=== PATIENT | male | born 1945 | race Asian ===

== ENCOUNTER 2020-10-31 12:25 | Inpatient (IN) | payer MEDICARE, OTHER ==
[~2020-10-31] VITALS: Ht 165.1 cm; Wt 68.0 kg
[2020-10-31] VITALS (7 sets, daily range): BP systolic 143–196; BP diastolic 69–102
--- NOTE | 2020-10-31 12:25 | NUR ---
ED Nurse Note: Pt ELISEO RA60 from home c/o nausea, vomiting, diarrhea and weakness x couple of days ago. BS at triage says "Hi". Pt tested negative for Covid x9 days ago. Per EMS, pt has stopped taking his DM and HTN meds. Pt AAOx4, verbally responsive. No SOB, on room air. Afebrile. Pt placed on patient monitor.
[2020-10-31 13:18] LABS: HEMATOCRIT 48.5 % (42.0-52.0); HEMOGLOBIN 14.7 G/DL (14.2-18.0); MEAN CORPUSCULAR VOLUME 100 FL (80-99); PLATELET COUNT 205 K/UL (150-450); RED BLOOD COUNT 4.87 M/UL (4.70-6.10); RED CELL DISTRIBUTION WIDTH 12.6 % (11.6-14.8); WHITE BLOOD COUNT 10.8 K/UL (4.8-10.8)
--- NOTE | 2020-10-31 13:23 | Emergency Room Report ---
History of Present Illness General Chief Complaint: Abnormal Labs Source: Patient, EMS (Errol Leslie) Present Illness HPI 75-year-old male with history of diabetes brought in by paramedics from home due to generalized weakness, nausea vomiting, and elevated blood sugar for 2 days. Patient also hypertensive upon arrival otherwise vitals are within normal limits. Appears to be afebrile. Reports that he tested negative for Covid 9 days ago however lives with who is positive for Covid. Denies any cough or congestion, shortness of breath, headache and dizziness. Patient mainly complains of generalized weakness. No unilateral weakness noted. (Errol Leslie) Allergies: Coded Allergies: No Known Allergies (Unverified , 10/31/20) COVID-19 Screening Contact w/high risk pt: No Experienced COVID-19 symptoms?: No COVID-19 Testing performed CAFE TEAM MEMBER: No (Errol Leslie) Patient History Past Medical History: see triage record Past Surgical History: none Pertinent Family History: none Immunizations: UTD Reviewed Nursing Documentation: PMH: Agreed; PSxH: Agreed (Errol Leslie) Nursing Documentation-PMH Hx Hypertension: Yes Hx Diabetes: Yes (Errol Leslie) Review of Systems All Other Systems: negative except mentioned in HPI (Errol Leslie) Physical Exam Vital Signs Date Time Temp Pulse Resp B/P (MAP) Pulse Ox O2 Delivery O2 Flow Rate FiO2 10/31/20 12:21 96.3 96 20 185/102 (129) 95 Room Air Sp02 EP Interpretation: abnormal - Blood pressure elevated General Appearance: alert, non-toxic, mild distress Head: normocephalic Eyes: bilateral eye normal inspection, bilateral eye PERRL ENT: hearing grossly normal, no angioedema, normal voice Neck: full range of motion, supple Respiratory: no respiratory distress, no retraction, no accessory muscle use Cardiovascular #1: regular rate, rhythm, no edema Gastrointestinal: non tender, soft, no mass Rectal: deferred Genitourinary: no CVA tenderness Musculoskeletal: back normal, pelvis stable Neurologic: alert, motor strength/tone normal, oriented x3, sensory intact, responsive, speech normal Psychiatric: judgement/insight normal, memory normal, mood/affect normal, no suicidal/homicidal ideation Skin: no rash Lymphatic: no adenopathy (Errol Leslie) Procedures Critical Care Time Critical Care Time Total critical care time; approximately 31 minutes. Due to a high probability of clinically significant, life threatening deterioration, the patient required my highest level of preparedness to intervene emergently and I personally spent this critical care time directly and personally managing the patient. This critical care time included obtaining a history; examining the patient; pulse oximetry; ordering and reviewing of studies; arranging urgent treatment with development of a management plan; evaluation of patient's response to treatment; frequent reassessment; and, discussions with other providers. This critical care time was performed to assess and manage the high probability of imminent, life-threatening deterioration that could result in multiorgan failure it was exclusive of separate billable procedures and treating other patients and teaching time. Please see MDM section and the rest of the note for further information on patient assessment and treatment. (Errol Leslie) Medical Decision Making PA Attestation All diagnoses and treatment plans were reviewed and discussed with my supervising physician Dr. Stack (Errol Leslie) PA Attestation I participate in the care of this patient along with SPRING Moreland Briefly, this is 75-year-old diabetic patient from home presenting for elevated blood sugar levels. Consistent with DKA. Blood sugar now greater than 8000. Insulin bolus, IV fluids and insulin drip started. Patient will be admitted to ICU. (John Bah MD) Medicare Attestation The history of Morales Marie has been reviewed and management options for him have been examined and discussed by Dylon Stack. I have personally examined and interviewed the patient. (Dylon Stack MD) Diagnostic Impression: Primary Impression: DKA (diabetic ketoacidoses) Additional Impression: COVID-19 virus infection ER Course 75-year-old male with history of diabetes brought in by paramedics from home due to generalized weakness, nausea vomiting, and elevated blood sugar for 2 days. Patient also hypertensive upon arrival otherwise vitals are within normal limit s. Appears to be afebrile. Reports that he tested negative for Covid 9 days ago however lives with who is positive for Covid. Denies any cough or congestion, shortness of breath, headache and dizziness. Patient mainly complains of generalized weakness. No unilateral weakness noted. Ddx considered but are not limited to: DKA, hyperglycemia, coronavirus, dizziness due to alcohol intoxication, dizziness unspecified, dizziness due to head trauma, dizziness secondary to cardiac reasons Vital signs: are WNL, pt. is afebrile H&PE are most consistent with: DKA, covid infx ORDERS: DKA order set ER intervention: NS bolus, Zofran, insulin, Insulin drip, sodium bicarbonate, Hydralazine Patient was admitted with diagnosis of DKA, Covid infx to Dr. Hwang under supervision of Dr.: Dulce pt stable at time of admission (Errol Leslie) EKG Diagnostic Results Rate: tachycardiac Rhythm: other ST Segments: no acute changes Other Impression No acute ST changes ASA given to the pt in ED: No (Errol Leslie) Chest X-Ray Diagnostic Results Chest X-Ray Diagnostic Results : Chest X-Ray Ordered: Yes # of Views/Limited/Complete: 1 View Indication: Other EP Interpretation: Yes PA Xray: Interpretation reviewed, by supervising MD, and agrees with findings. Interpretation: no consolidation, no effusion, no pneumothorax Impression: No acute disease Electronically Signed by: Errol Gannon PA-C (Errol Leslie) Last Vital Signs Date Time Temp Pulse Resp B/P (MAP) Pulse Ox O2 Delivery O2 Flow Rate FiO2 10/31/20 12:25 96.3 96 20 185/102 95 Room Air (Errol Leslie) Disposition: ADMITTED INPATIENT Condition: Serious Referrals: DERICK ELLIS,REFERRING (PCP) Errol Leslie Oct 31, 2020 13:23 John Bah MD Oct 31, 2020 15:30 Dylon Stack MD Nov 12, 2020 15:36
[2020-10-31 13:31] LABS: ANION GAP 18 mmol/L (5-15); BLOOD UREA NITROGEN 66 mg/dL (7-18); CALCIUM 8.6 MG/DL (8.5-10.1); CARBON DIOXIDE 18 MMOL/L (21-32); CHLORIDE 94 MMOL/L (98-107); CREATININE 4.6 MG/DL (0.55-1.30); SODIUM 130 MMOL/L (136-145)
[2020-10-31 13:43] LABS: ALANINE AMINOTRANSFERASE 32 U/L (12-78); ALBUMIN 2.9 G/DL (3.4-5.0); ALBUMIN/GLOBULIN RATIO 0.7 (1.0-2.7); ALKALINE PHOSPHATASE 107 U/L (46-116); ASPARTATE AMINO TRANSFERASE 47 U/L (15-37); BILIRUBIN,TOTAL 0.5 MG/DL (0.2-1.0); FERRITIN 706 NG/ML (8-388)
[2020-10-31] MEDS ORDERED: Insulin Human Regular 100units/ml 3ml IV ONE (13:45)
[2020-10-31] MEDS ORDERED: Insulin Reg 100 units Premix 100 ML IV SCH ×2 (14:15→14:58)
[2020-10-31] MEDS ORDERED: Insulin Rate Change 1 Each MISC PRN (14:15)
[2020-10-31] MEDS ORDERED: Insulin Human Regular 100units/ml 3ml IV PRN ×2 (14:15)
--- NOTE | 2020-10-31 14:15 | Diagnostic Imaging Report ---
Indication: Shortness of breath Technique: One view of the chest Comparison: none Findings: The heart is enlarged. The aorta is tortuous ectatic and calcified. There is some atelectasis in the left midlung periphery. Lungs and pleural spaces are otherwise clear. Impression: Cardiomegaly. Left midlung atelectasis No acute process otherwise
--- NOTE | 2020-10-31 15:00 | NUR ---
ED Nurse Note:started insulin drip, will recheck BG in 1 hr
--- NOTE | 2020-10-31 15:10 | NUR ---
ED Nurse Note: Pt unable to recall the name of his home meds.
--- NOTE | 2020-10-31 15:15 | NUR ---
ED Nurse Note:pt. was moved to different room for cardiac monitoring,
[2020-10-31] MEDS ORDERED: Sodium Bicarbonate 50ml Carp IV ONE (15:45)
[2020-10-31 15:57] LABS: APPEARANCE,URINE CLEAR; BILIRUBIN, URINE NEGATIVE (NEGATIVE); COLOR,URINE PALE YELLOW; GLUCOSE, URINE (UA) 4+ (NEGATIVE); KETONES,URINE 2+ (NEGATIVE); LEUKOCYTE ESTERASE ,URINE NEGATIVE (NEGATIVE); NITRITE,URINE NEGATIVE (NEGATIVE); PH,URINE 5 (4.5-8.0); PROTEIN,URINE 4+ (NEGATIVE); UROBILINOGEN,URINE NORMAL MG/DL (0.0-1.0)
--- NOTE | 2020-10-31 16:27 | NUR ---
ED Nurse Note:rechecked BG still cr high, notified
--- NOTE | 2020-10-31 17:40 | Consultation ---
Consult Note Consult Note I am asked to evaluate the patient at the request of Dr. Hwang for renal failure Patient seen in ICU room 8 Discussed with the emergency room MD and PA Chief Complaint: Abnormal Labs 75-year-old male with history of diabetes brought in by paramedics from home due to generalized weakness, nausea vomiting, and elevated blood sugar for 2 days. Patient also hypertensive upon arrival otherwise vitals are within normal limits. Appears to be afebrile. Reports that he tested negative for Covid 9 days ago however lives with who is positive for Covid. Denies any cough or congestion, shortness of breath, headache and dizziness. Patient mainly complains of generalized weakness. No unilateral weakness noted. Coded Allergies: No Known Allergies (Unverified , 10/31/20) COVID-19 Screening Contact w/high risk pt: No Experienced COVID-19 symptoms?: No COVID-19 Testing performed PLANT BIOLOGY PROFESSOR: No Hx Hypertension: Yes Hx Diabetes: Yes Vital Signs Date Time Temp Pulse Resp B/P (MAP) Pulse Ox O2 Delivery O2 Flow Rate FiO2 10/31/20 12:21 96.3 96 20 185/102 (129) 95 Room Air PHYSICAL EXAMINATION: VITAL SIGNS: Show blood pressure of 174/89 and pulse is 107, but was 163 at 3 a.m. HEAD AND NECK: Shows no JVD. LUNGS: Clear. CARDIOVASCULAR: Shows regular S1 and S2 with no gallop. ABDOMEN: Soft. EXTREMITIES: No pitting edema. LABORATORY AND DIAGNOSTIC DATA: Labs show white count 13.7, hematocrit of 14, hematocrit 42, and platelet count of 190,000. Sodium 142, potassium 3.5, BUN of 52, creatinine 3.5, glucose of 459. His troponin is at 0.315 and 0.255. . Assessment/Plan 75-year-old Icelandic male Covid positive, pneumonia, hypoxia Acute renal failure, most likely superimposed on chronic kidney disease Diabetes mellitus, presents with severe hyperglycemia and DKA History of hypertension Rhabdomyolysis Hypothyroidism Anand catheter Blood sugar control Slow hydration Monitor renal parameters Kidney ultrasound 2D echocardiogram Avoid nephrotoxic's Per Endo Per orders Garth Buckley MD Oct 31, 2020 17:40
[2020-10-31] MEDS: Docusate 100mg cap ORAL SCH (17:59)
--- NOTE | 2020-10-31 18:00 | NUR ---
ED Nurse Note:brenner was incerted for output monitoring per MD order
--- NOTE | 2020-10-31 18:47 | Diagnostic Imaging Report ---
EXAM: US Retroperitoneal Limited, Renal CLINICAL HISTORY: RENAL-A TECHNIQUE: Real-time limited ultrasound of the retroperitoneum with image documentation. COMPARISON: None. FINDINGS: Limitations: Exam is limited due to gas artifact in the bowel. Right kidney: Right kidney measures 9.1 x 4.3 x 4.9 cm. No stones. No hydronephrosis. Left kidney: The left kidney measures 10.0 x 4.5 x 5.0 cm. No stones. No hydronephrosis. Bladder: Prevoid urinary bladder volume is 86.5 cc. Normal urinary bladder wall. A Anand catheter is seen in place. IMPRESSION: Unremarkable retroperitoneal ultrasound.
[2020-10-31 19:17] LABS: CALCIUM 7.8 MG/DL (8.5-10.1); CREATININE 3.7 MG/DL (0.55-1.30); POTASSIUM 2.8 MMOL/L (3.5-5.1)
--- NOTE | 2020-10-31 19:30 | NUR ---
ED Nurse Note: Recieved report from am nurse to resume care, pt in bed resting quietly, on cardiac monitoring, has patent IV site with insulin infusing for elevated blood sugar level, recent level =581, ER MD states to continue running at 7ml/hr, pt tolerating well, denies chest pain or any pain, no sob or labored breathing, pt is on covid isolation precautions, waiting for room for admission, will resume care as ordered and continue to closely monitor.
[2020-10-31] MEDS ORDERED: Potassium Phosphate 20 MM in NS 275 ML IV ONE (19:45)
[2020-10-31] MEDS ORDERED: Enoxaparin 60mg Inj SUBQ ONE (20:00)
[2020-10-31] MEDS ORDERED: BENADRYL25 M3 PO (20:26)
[2020-10-31] MEDS ORDERED: PREDNISONE20 MG ORAL (20:26)
--- NOTE | 2020-10-31 20:45 | NUR ---
ED Nurse Note: Pt continues to rest quietly, pt c/o having increased nausea, meds given and pt had emesis, reported to md, pt medicated for mild abd pain, IV site patent with fluids infusing, pt insulin drip held at this time per , ER MD, states to infuse all potassium before restarting due to pt low potassium level, pt has admit orders, will continue to monitor while waiting for ICU bed room placement.
[2020-10-31] MEDS ORDERED: Morphine Sulfate 2mg/ml Inj(IV/IM USE ONLY) IVP ONE (21:00)
--- NOTE | 2020-10-31 21:18 | NUR ---
CONTACT STEFANIE ESPARZA, son in law [phone]
--- NOTE | 2020-10-31 21:18 | NUR ---
CONTACT INFO LEXI,DAUGHTER [phone]
--- NOTE | 2020-10-31 22:00 | NUR ---
ED Nurse Note: Pt continues to rest quietly in bed, awake and alert, pt stating still has nausea, emesis x 1 and pain at 6/10, MD aware, pt remains on continuous monitoring, v/s stable, IV site patent, no sob or labored breathing noted, brenner to gravity, output recorded, no insulin infusing and potassium continues, will continue to closely monitor as pt waiting for bed for hospital admission.
[2020-10-31] MEDS ORDERED: Morphine Sulfate 4mg/ml Inj (IV USE ONLY) IVP ONE (23:30)
--- NOTE | 2020-10-31 23:35 | NUR ---
ED Nurse Note: Pt mediocated for pain, meds effective, pt resting quietly, remains on Covid isolation precautions and constant monitoring, IV site patent wih potassium infusin, repeat chemistry panel drawn and sent for updated potassium level, no sob or labored breathingn toed, o2 sat=99% on RA, will continue to monitor for any acute chagnes or increased distress.
[2020-10-31 23:46] LABS: CALCIUM 8.2 MG/DL (8.5-10.1); CREATININE 3.5 MG/DL (0.55-1.30); POTASSIUM 3.5 MMOL/L (3.5-5.1)
[2020-11-01] VITALS (17 sets, daily range): BP systolic 96–174; BP diastolic 33–104
--- NOTE | 2020-11-01 | NUR ---
NURSE NOTES: cleaned pt, oral care given. 2 BM noted at this time, brown, no bleeding, large liquid BM. pt is very agitated. AOx 2-3 confused at this time. pt is trying to get out from the bed. call light within reach. will continue to monitor pt with plan of care. Addendum: 11/02/20 at 0752 by DOROTA GLASER RN wrong time
[2020-11-01] MEDS ORDERED: Insulin Human Regular 100units/ml 3ml IV ONE (00:45)
--- NOTE | 2020-11-01 01:05 | NUR ---
ED Nurse Note: Pt lab results given, potassium level up to normal limits and pt has been down graded to tele unit, pt blood glucose level also taken and recorded, pt given single dose or insulin to cover, no restart of drip during potassium infusion per md, pt states pain meds effective and resting quietly, report for admission called to floor nurse ARPITA Green, pt taken to unnit via gurney with ACLS protocols and Covid isolation, nad noted during pt transport and pt has all belongings.
--- NOTE | 2020-11-01 01:30 | NUR ---
NURSE NOTES: Pt. received from ARPITA Valdez. Pt. AAOx4, no room air, breathing even and unlabored, no indications of respiratory distress, no complaints of pain. IV noted left AC 20g. Belongings with pt. Pt. oriented to room. Bed low and lock, side rails x2 up, bed alarm active, and call light in reach.
[2020-11-01] MEDS ORDERED: dilTIAZem HCl 25mg/5ml Inj IVP ONE (02:30)
--- NOTE | 2020-11-01 02:54 | NUR ---
NURSE NOTES: At 0158 Pt. VS assessed, 156/104, 160 HR on pulse ox, 97.9F, 20RR, 96% on room air, no complaints of pain, with nausea and vomiting. On monitor pt. was found to be in a flutter 163 bpm, pt. asymptomatic on assessment. EKG was performed and indicated to be in aflutter. MEDICAL REVIEW COORDINATOR was called. Dr. Soto was notified by the charge nurse. Nurse real estate office supervisor was notified. During MEDICAL REVIEW COORDINATOR pt. AAOx4, no indications of respiratory distress, no complaints of pain, no complaints of palpitations, pt. still in a flutter on EKG, BS 411 via bedside accucheck. MEDICAL REVIEW COORDINATOR recommended primary to be called for orders and suggested ICU if rhythm cannot be controlled. Per charge nurse, nurse real estate office supervisor was called and nurse real estate office supervisor will speak with ER doctor. ER doctor with orders for 25 mg cardizem IV push. With crash cart at bedside and ICU nurse on standby, cardizem was administered. HR 151 BP 156/86, pt on EKG at bedside and small engine technician alerted. After 20 mg cardizem was given, HR 94 BP 142/86, 100% on 2L NC, no complaints of chest pain per the pt, pt. AAOx4. Pt. VS stable, EKG now normal sinus rhythm.
--- NOTE | 2020-11-01 03:05 | NUR ---
CARPENTRY TEACHER Note: CARPENTRY TEACHER was called at [] by [], and notified MD []. Pt transferred to [] at []. See CARPENTRY TEACHER documentation form for full report. Pt noted to be A flutter confirmed by EKG. HR fluctuating between 130 to 160s. BP 156/ 104 pt sating 97% O2. pt is alert and oriented times 4, no change in condition neuro gutierrez. pt able to answer questions. Dr Soto has been paged about the pts situation on his urgent line. ray Montero assessed pt, notified ER Doctor Dora about pts situation. ED doctor ordered Cardizem 25 MG IV push. 20 MG of Cardizem was given, pts converted back to NSR with HR in the 90s. BP 147/ 83, pt remained asymptomatic. EKG confirmed PT converted to SR. EKG filed in pts chart. Addendum: 11/01/20 at 0443 by RASHAD MUNOZ RN CARPENTRY TEACHER Note: CARPENTRY TEACHER was called at [0305] by [Peter RN, Rossy RN], and notified [Charles]. Pt stayed in room. See CARPENTRY TEACHER documentation form for full report. Pt noted to be A flutter confirmed by EKG. HR fluctuating between 130 to 160s. BP 156/ 104 pt sating 97% O2. pt is alert and oriented times 4, no change in condition neuro gutierrez. pt able to answer questions. Dr Soto has been paged about the pts situation on his urgent line. ray Montero assessed pt, notified ER Doctor Dora about pts situation. ED doctor ordered Cardizem 25 MG IV push. 20 MG of Cardizem was given, pts converted back to NSR with HR in the 90s. BP 147/ 83, pt remained asymptomatic. EKG confirmed PT converted to SR. EKG filed in pts chart.
--- NOTE | 2020-11-01 03:23 | NUR ---
NURSE NOTES: Dr. Soto called to notify of HADOOP INFRASTRUCTURE ARCHITECT, administration of 20mg cardizem as ordered by ER physician, and pt. conversion from aflutter to sinus rhythm. Awaiting return call and follow up orders.
--- NOTE | 2020-11-01 03:29 | NUR ---
NURSE NOTES: Message was left for daughterAshley per the contact info left in notes.
--- NOTE | 2020-11-01 03:43 | NUR ---
NURSE NOTES: Spoke with Ashley, pt's daughter, regarding ENTRY LEVEL MARKETING ASSISTANT and pt's current status on telemetry unit.
[2020-11-01] MEDS ORDERED: NovoLOG Insulin Flexpen SUBQ SCH (06:30)
--- NOTE | 2020-11-01 06:42 | NUR ---
NURSE NOTES: Per charge nurse, orders received from Dr. Soto to consult Dr. Escalante regarding pt.s a flutter episode.
--- NOTE | 2020-11-01 07:35 | NUR ---
NURSE NOTES: Received patient in bed. Awake, A/O x4, Wolof speaking. On room air, respirations unlabored. F/c in place draining yellow urine. IV in the Left AC, IVF running as ordered. Bed low and locked, side rails up x2, call light within reach - with return demonstration.
--- NOTE | 2020-11-01 07:49 | NUR ---
NURSE HAND-OFF REPORT: Important Events on Shift:[pt. admitted, a flutter and CAMPAIGN COORDINATOR called. Dr. Soto and Dr. Escalante aware, orders received. Glucose 455, Dr. Tamez notified. Daughter aware of pt.s status] Patient Status: awake and alert Diet: Renal Pending Orders: na Pending Results/Labs:na Pending MD notification:need zofran Latest Vital Signs: Temperature 97.5 , Pulse 97 , B/P 154 /96 , Respiratory Rate 20 , O2 SAT 96 , Room Air, O2 Flow Rate 2.0 . Vital Sign Comment: stable EKG Rhythm: Sinus Rhythm Rhythm change?: Amari ANDERSON Notified?: Y -Dr. Charles ANDERSON Response: Message left await call Latest Bhat Fall Score: 45 Fall Risk: High Risk Safety Measures: Call light Within Reach, Bed Alarm Zone 1, Side Rails Side Rails x2, Bed position Low and Locked. Fall Precautions: Yellow Socks Patient Fall Education Report given to ARPITA Silva.
[2020-11-01 08:32] LABS: HEMATOCRIT 42.7 % (42.0-52.0); MEAN CORPUSCULAR VOLUME 91 FL (80-99); PLATELET COUNT 190 K/UL (150-450); RED BLOOD COUNT 4.67 M/UL (4.70-6.10); RED CELL DISTRIBUTION WIDTH 13.2 % (11.6-14.8); WHITE BLOOD COUNT 13.3 K/UL (4.8-10.8)
[2020-11-01 08:42] LABS: ALANINE AMINOTRANSFERASE 36 U/L (12-78); ALBUMIN 2.4 G/DL (3.4-5.0); ALBUMIN/GLOBULIN RATIO 0.8 (1.0-2.7); ALKALINE PHOSPHATASE 88 U/L (46-116); ANION GAP 16 mmol/L (5-15); ASPARTATE AMINO TRANSFERASE 51 U/L (15-37); BILIRUBIN,TOTAL 0.5 MG/DL (0.2-1.0); BLOOD UREA NITROGEN 52 mg/dL (7-18); CALCIUM 7.7 MG/DL (8.5-10.1); CARBON DIOXIDE 18 MMOL/L (21-32); CHLORIDE 109 MMOL/L (98-107); CHOLESTEROL 197 MG/DL (< 200); CREATINE KINASE 1898 U/L (26-308); CREATININE 3.2 MG/DL (0.55-1.30); GAMMA GLUTAMYL TRANSPEPTIDASE 29 U/L (5-85); HDL CHOLESTEROL 39 MG/DL (40-60); PHOSPHORUS 4.7 MG/DL (2.5-4.9); POTASSIUM 3.5 MMOL/L (3.5-5.1); SODIUM 143 MMOL/L (136-145); TRIGLYCERIDES 349 MG/DL (30-150)
[2020-11-01] MEDS: Docusate 100mg cap ORAL SCH ×2 (08:42→17:39)
[2020-11-01] MEDS: Levemir Flexpen SUBQ SCH (08:49)
--- NOTE | 2020-11-01 09:00 | Consultation ---
DATE OF CONSULTATION: 11/01/2020 ENDOCRINOLOGY CONSULTATION CONSULTING PHYSICIAN: Markus Tamez MD REFERRING PHYSICIAN: Corey Soto MD REASON FOR CONSULTATION: Diabetes management. HISTORY OF PRESENT ILLNESS: The patient is a 75-year-old man with history of diabetes, brought in by paramedics due to generalized weakness, nausea, vomiting, elevated glucose for the past few days. Also found to be hypertensive upon arrival. Vitals within normal limits. The patient was afebrile, tested positive for COVID 9 days ago. He lives with his who was positive for COVID also. Denies any chest pain, shortness of breath, headache, or dizziness. Main complaint is that generalized weakness, which is not localized. On presentation, he was noted to have glucose of 1087 with an open gap of 18, bicarb of 18, lactic acid of 3.2, started on insulin drip and admitted to the ICU. PAST MEDICAL HISTORY: Diabetes. PAST SURGICAL HISTORY: Unknown. SOCIAL HISTORY: No smoking, alcohol, or drug use. REVIEW OF SYSTEMS: As per HPI. FAMILY HISTORY: Noncontributory. LABORATORY DATA: Most recent laboratory values, Lactate 3.5, chloride 108, bicarb 24, BUN 54, creatinine 3.5, and glucose of 474. PHYSICAL EXAMINATION: VITAL SIGNS: Blood pressure 156/102, temperature of 98.4, pulse of 157, and respiratory rate of 20. The rest of the exam was deferred due to the patient's COVID isolation. DIAGNOSES: 1. Diabetes out of control with mild DKA, positive for lactic acidosis. 2. Renal failure, acute versus chronic or acute on chronic. 3. COVID positive. 4. Generalized weakness PLAN: 1. Insulin drip algorithm 2. 2. Glucose monitoring every 1 to 2 hours. 3. Once the glucose is stable, we will convert to subcutaneous insulin therapy. 4. I will follow the patient closely during the hospital stay. Follow the electrolytes. Thank you, Dr. Soto, for the courtesy of this consultation. Markus Tamez M.D. : ARPITA/mark JOB#: [id number] CC: [email or web address]
--- NOTE | 2020-11-01 10:46 | Cardiac Electrophysiology PN ---
Subjective Subjective [id number] Objective Last 24 Hour Vital Signs Date Time Temp Pulse Resp B/P (MAP) Pulse Ox O2 Delivery O2 Flow Rate FiO2 11/01/20 09:20 174/89 11/01/20 08:00 98.5 107 20 174/89 (117) 94 11/01/20 04:00 97.5 102 20 154/96 (115) 96 11/01/20 04:00 97 11/01/20 03:05 163 20 96 11/01/20 02:37 157 156/102 11/01/20 02:19 Nasal Cannula 2.0 11/01/20 01:56 163 11/01/20 01:25 98.4 81 16 151/93 99 Room Air 11/01/20 00:45 98.4 81 16 151/93 99 Room Air 10/31/20 23:00 96.3 82 16 143/90 99 Room Air 10/31/20 21:40 96.3 10/31/20 21:40 96.3 10/31/20 21:30 98.8 85 19 149/71 99 Room Air 10/31/20 20:00 98.8 91 22 158/73 97 Room Air 10/31/20 18:05 96.3 88 22 153/69 97 Room Air 10/31/20 16:37 96.3 85 22 196/82 97 Room Air 10/31/20 16:19 222/100 10/31/20 15:29 96.3 86 25 188/85 97 Room Air 10/31/20 12:25 96.3 96 20 185/102 95 Room Air 10/31/20 12:21 96.3 96 20 185/102 (129) 95 Room Air Intake and Output 10/31/20 11/01/20 19:00 07:00 Intake Total 1200 ml Output Total 2100 ml Balance -900 ml Intake Oral 1200 ml Output Urine Total 1900 ml Emesis 200 ml # Voids 1 Laboratory Tests Test 10/31/20 12:38 10/31/20 13:50 10/31/20 14:55 10/31/20 18:30 White Blood Count 10.8 K/UL (4.8-10.8) Red Blood Count 4.87 M/UL (4.70-6.10) Hemoglobin 14.7 G/DL (14.2-18.0) Hematocrit 48.5 % (42.0-52.0) Mean Corpuscular Volume 100 FL (80-99) H Mean Corpuscular Hemoglobin 30.2 PG (27.0-31.0) Mean Corpuscular Hemoglobin Concent 30.3 G/DL (32.0-36.0) L Red Cell Distribution Width 12.6 % (11.6-14.8) Platelet Count 205 K/UL (150-450) Mean Platelet Volume 7.5 FL (6.5-10.1) Neutrophils (%) (Auto) % (45.0-75.0) Lymphocytes (%) (Auto) % (20.0-45.0) Monocytes (%) (Auto) % (1.0-10.0) Eosinophils (%) (Auto) % (0.0-3.0) Basophils (%) (Auto) % (0.0-2.0) Differential Total Cells Counted 100 Neutrophils % (Manual) 89 % (45-75) H Lymphocytes % (Manual) 4 % (20-45) L Monocytes % (Manual) 7 % (1-10) Eosinophils % (Manual) 0 % (0-3) Basophils % (Manual) 0 % (0-2) Band Neutrophils 0 % (0-8) Platelet Estimate Adequate Platelet Morphology Normal Red Blood Cell Morphology Normal Macrocytosis D-Dimer 3.42 mg/L FEU (0.00-0.49) H Sodium Level 130 MMOL/L (136-145) L 143 MMOL/L (136-145) # Potassium Level 4.0 MMOL/L (3.5-5.1) 2.8 MMOL/L (3.5-5.1) L Chloride Level 94 MMOL/L (98-107) L 109 MMOL/L (98-107) H Carbon Dioxide Level 18 MMOL/L (21-32) L 23 MMOL/L (21-32) Anion Gap 18 mmol/L (5-15) H 11 mmol/L (5-15) Blood Urea Nitrogen 66 mg/dL (7-18) H 57 mg/dL (7-18) H Creatinine 4.6 MG/DL (0.55-1.30) H 3.7 MG/DL (0.55-1.30) H Estimat Glomerular Filtration Rate 12.5 mL/min (>60) 16.1 mL/min (>60) Glucose Level 1087 MG/DL (74-106) *H 581 MG/DL (74-106) #*H Hemoglobin A1c 8.1 % (4.3-6.0) H Lactic Acid Level 2.20 mmol/L (0.4-2.0) H Calcium Level 8.6 MG/DL (8.5-10.1) 7.8 MG/DL (8.5-10.1) L Magnesium Level 2.7 MG/DL (1.8-2.4) H Ferritin 706 NG/ML (8-388) H Total Bilirubin 0.5 MG/DL (0.2-1.0) Aspartate Amino Transf (AST/SGOT) 47 U/L (15-37) H Alanine Aminotransferase (ALT/SGPT) 32 U/L (12-78) Alkaline Phosphatase 107 U/L (46-116) Troponin I 0.255 ng/mL (0.000-0.056) C-Reactive Protein, Quantitative 2.4 mg/L (<5) Total Protein 7.0 G/DL (6.4-8.2) Albumin 2.9 G/DL (3.4-5.0) L Globulin 4.1 g/dL Albumin/Globulin Ratio 0.7 (1.0-2.7) L Lipase 193 U/L (73-393) Acetone Level Positive-small (NEGATIVE) Arterial Blood pH 7.293 (7.350-7.450) Arterial Blood Partial Pressure CO2 29.3 mmHg (35.0-45.0) L Arterial Blood Partial Pressure O2 mmHg (75.0-100.0) Arterial Blood HCO3 13.9 mmol/L (22.0-26.0) *L Arterial Blood Oxygen Saturation 94.3 % (95-100) L Arterial Blood Base Excess -11.2 (-2-2) *L Lorenzo Test Positive Urine Color Pale yellow Urine Appearance Clear Urine pH 5 (4.5-8.0) Urine Specific [place] 1.010 (1.005-1.035) Urine Protein 4+ (NEGATIVE) H Urine Glucose (UA) 4+ (NEGATIVE) H Urine Ketones 2+ (NEGATIVE) H Urine Blood 2+ (NEGATIVE) H Urine Nitrite Negative (NEGATIVE) Urine Bilirubin Negative (NEGATIVE) Urine Urobilinogen Normal MG/DL (0.0-1.0) Urine Leukocyte Esterase Negative (NEGATIVE) Urine RBC 5-10 /HPF (0 - 0) H Urine WBC 0-2 /HPF (0 - 0) Urine Squamous Epithelial Cells None /LPF (NONE/OCC) Urine Bacteria Few /HPF (NONE) Urine Coarse Granular Casts 2-4 /LPF (NONE) H Test 10/31/20 23:30 10/31/20 23:32 11/01/20 02:01 11/01/20 05:20 Sodium Level 143 MMOL/L (136-145) Potassium Level 3.5 MMOL/L (3.5-5.1) Chloride Level 108 MMOL/L (98-107) H Carbon Dioxide Level 24 MMOL/L (21-32) Anion Gap 12 mmol/L (5-15) Blood Urea Nitrogen 54 mg/dL (7-18) H Creatinine 3.5 MG/DL (0.55-1.30) H Estimat Glomerular Filtration Rate 17.1 mL/min (>60) Glucose Level 474 MG/DL (74-106) #H Calcium Level 8.2 MG/DL (8.5-10.1) L POC Whole Blood Glucose 441 MG/DL (74-106) H 411 MG/DL (74-106) H Urine Eosinophils None seen (NONE SEEN) Test 11/01/20 05:27 White Blood Count 13.3 K/UL (4.8-10.8) H Red Blood Count 4.67 M/UL (4.70-6.10) L Hemoglobin 14.0 G/DL (14.2-18.0) L Hematocrit 42.7 % (42.0-52.0) Mean Corpuscular Volume 91 FL (80-99) # Mean Corpuscular Hemoglobin 29.9 PG (27.0-31.0) Mean Corpuscular Hemoglobin Concent 32.7 G/DL (32.0-36.0) Red Cell Distribution Width 13.2 % (11.6-14.8) Platelet Count 190 K/UL (150-450) Mean Platelet Volume 8.6 FL (6.5-10.1) Neutrophils (%) (Auto) % (45.0-75.0) Lymphocytes (%) (Auto) % (20.0-45.0) Monocytes (%) (Auto) % (1.0-10.0) Eosinophils (%) (Auto) % (0.0-3.0) Basophils (%) (Auto) % (0.0-2.0) Neutrophils % (Manual) Pending Lymphocytes % (Manual) Pending Platelet Estimate Pending Platelet Morphology Pending Sodium Level 143 MMOL/L (136-145) Potassium Level 3.5 MMOL/L (3.5-5.1) Chloride Level 109 MMOL/L (98-107) H Carbon Dioxide Level 18 MMOL/L (21-32) L Anion Gap 16 mmol/L (5-15) H Blood Urea Nitrogen 52 mg/dL (7-18) H Creatinine 3.2 MG/DL (0.55-1.30) H Estimat Glomerular Filtration Rate 19.0 mL/min (>60) Glucose Level 459 MG/DL (74-106) H Uric Acid 8.1 MG/DL (2.6-7.2) H Calcium Level 7.7 MG/DL (8.5-10.1) L Phosphorus Level 4.7 MG/DL (2.5-4.9) Magnesium Level 2.4 MG/DL (1.8-2.4) Total Bilirubin 0.5 MG/DL (0.2-1.0) Gamma Glutamyl Transpeptidase 29 U/L (5-85) Aspartate Amino Transf (AST/SGOT) 51 U/L (15-37) H Alanine Aminotransferase (ALT/SGPT) 36 U/L (12-78) Alkaline Phosphatase 88 U/L (46-116) Total Creatine Kinase 1898 U/L (26-308) H Troponin I 0.315 ng/mL (0.000-0.056) C-Reactive Protein, Quantitative Pending Pro-B-Type Natriuretic Peptide 3111 pg/mL (0-125) H Total Protein 5.3 G/DL (6.4-8.2) L Albumin 2.4 G/DL (3.4-5.0) L Globulin 2.9 g/dL Albumin/Globulin Ratio 0.8 (1.0-2.7) L Triglycerides Level 349 MG/DL (30-150) H Cholesterol Level 197 MG/DL (< 200) LDL Cholesterol 95 mg/dL (<100) HDL Cholesterol 39 MG/DL (40-60) L Cholesterol/HDL Ratio 5.1 (3.3-4.4) H Thyroid Stimulating Hormone (TSH) 0.097 uiU/mL (0.358-3.740) Free Thyroxine 1.86 NG/DL (0.76-1.46) H Microbiology Date/Time Source Procedure Growth Status 10/31/20 13:43 Nasopharynx SARS-CoV-2 RdRp Gene Assay - Final Complete Sivakumar Escalante MD Nov 01, 2020 10:46
--- NOTE | 2020-11-01 12:55 | NUR ---
NURSE NOTES: Patient found laying on the floor on his left side, elbows folded and hands tucked under his head. Patient responsive and speaking Romanian. Romanian speaking RN used for translation. Yellow socks on patient, brenner cathter removed, IV site removed, heart monitor removed, NC removed and pulled from wall socket, IV pole down on the floor. Floor clear of clutter, plenty of light in the room, call light on the bed. Skin assessment done, neuro checks started. Patient asked what he was doing on the floor, asked if he fell. Patient states "I did not fall." Patient asked again what he was attmepting, patient continues to say "I did not fall." Patient alert to name and , unable to give location and situation. Patient placed back in bed with second RN assistance, gown and linen change done, heart monitor replaced, NC replaced, bilateral soft wrist restraints placed on patient. Dr Soto and Dr Singh made aware with new orders for bilateral soft wrist restraints. Patient already in a room close to the nurse's station.
[2020-11-01] MEDS: NovoLOG Insulin Flexpen SUBQ SCH ×5 (13:23→21:17)
--- NOTE | 2020-11-01 13:30 | Consultation ---
DATE OF CONSULTATION: 11/01/2020 CARDIOLOGY CONSULTATION CONSULTING PHYSICIAN: Sivakumar Escalante MD. REFERRING PHYSICIAN: Corey Soto MD. REASON FOR CONSULTATION: Atrial flutter with rapid ventricular response. HISTORY OF PRESENT ILLNESS: The patient is a 75-year-old Sinhala gentleman with history of diabetes, who was brought in from home for generalized weakness and nausea, vomiting, and elevated blood sugar for two days. The patient was also hypertensive upon arrival. The patient states that he was tested for COVID nine days ago, however, he lives his who is positive for COVID. The patient initially was in sinus rhythm, however, subsequently developed atrial flutter with rapid ventricular response. The patient received 20 mg of IV Cardizem and subsequently converted to sinus rhythm. Atrial flutter rate was 150 beats per minute. REVIEW OF SYSTEMS: Negative other than what was mentioned in history of present illness. PAST MEDICAL HISTORY: As mentioned above. FAMILY HISTORY: Noncontributory. SOCIAL HISTORY: He lives at home with his . PHYSICAL EXAMINATION: VITAL SIGNS: Show blood pressure of 174/89 and pulse is 107, but was 163 at 3 a.m. HEAD AND NECK: Shows no JVD. LUNGS: Clear. CARDIOVASCULAR: Shows regular S1 and S2 with no gallop. ABDOMEN: Soft. EXTREMITIES: No pitting edema. LABORATORY AND DIAGNOSTIC DATA: Labs show white count 13.7, hematocrit of 14, hematocrit 42, and platelet count of 190,000. Sodium 142, potassium 3.5, BUN of 52, creatinine 3.5, glucose of 459. His troponin is at 0.315 and 0.255. ASSESSMENT AND PLAN: 1. Non-ST elevation myocardial infarction with troponin of 0.25 and 0.35 in this patient with diabetic ketoacidosis with blood glucose of more than a 1000 on arrival as well as atrial flutter with rapid ventricular response. I will start the patient on metoprolol 50 mg b.i.d. in view of post NC status as well as we will get a repeat EKG and echocardiogram for further evaluation. 2. Atrial flutter with rapid ventricular response. The patient converted. Again, I will start metoprolol 50 mg b.i.d. If the patient has recurrence of atrial flutter, we may need to add antiarrhythmics like amiodarone to his medical regimen. echocardiogram is pending. 3. Diabetic ketoacidosis with glucose of more than 1000. 4. COVID positive pneumonia. 5. Renal failure with creatinine of 3.5. Further evaluation by Dr. Buckley. It is of note the patient also has total CK of 1900, maybe rhabdomyolysis-induced renal failure. We will repeat CPK as well. 6. Accelerated hypertension. I will start the patient on Lopressor 50 mg twice a day, as his blood pressure in the ER was 185/102, add p.r.n. clonidine to his medical regimen. Thank you very much for allowing me to participate in the care of this patient. Please do not hesitate to contact me for any questions regarding my evaluation. Sivakumar Escalante M.D. DR: NICO JOB#: [id number] CC:
--- NOTE | 2020-11-01 14:21 | NUR ---
CASE MANAGEMENT:REVIEW 75 YR OLD MALE BIBA FROM HOME CC: WEAKNESS. N/V/D SI: DKA. COVID 96.3 96 20 185/102 95% ON RA GLUCOSE+1087 TROPONIN(+)0.255 IS: 1L NS BOLUS X2 IV NA HCO3 IV HYDRALAZINE IV ZOFRAN INSULIN GTT LOVENOX SQ BLOOD CX CXR : TO TELEMETRY
--- NOTE | 2020-11-01 15:28 | Diagnostic Imaging Report ---
Indications: Pain status post fall Technique: Spiral acquisitions obtained through the brain. Angled axial and coronal 5 x 5 mm slices were reconstructed. Total dose length product 2212 mGycm. CTDI vol(s) 53 x 3 mGy. Dose reduction achieved using automated exposure control Comparison: none Findings: There is age-related enlargement of the ventricles and extra axial CSF spaces. There is periventricular deep white matter low attenuation, consistent with chronic microvascular ischemic change. The calvarium is in intact. There is mucosal thickening in the ethmoids. The mastoids are clear. Impression: Chronic and age-related changes Negative for acute intracranial bleed or mass effect The CT scanner at [facility] is accredited by the [employer] and the scans are performed using protocols designed to limit radiation exposure to as low as reasonably achievable to attain images of sufficient resolution adequate for diagnostic evaluation.
--- NOTE | 2020-11-01 15:48 | Nephrology Progress Note ---
Assessment/Plan Problem List: (1) Renal failure (ARF), acute on chronic (2) DKA (diabetic ketoacidoses) (3) COVID-19 virus infection (4) Rhabdomyolysis Assessment 75-year-old Romansh male Covid positive Acute renal failure, most likely superimposed on chronic kidney disease Diabetes mellitus, presents with severe hyperglycemia and DKA History of hypertension Plan November 01: Renal parameters improving. Blood sugar is improving. Continue to monitor electrolytes renal parameters and urine output. Aim to control blood sugar and blood pressure. Avoid nephrotoxic's. Monitor CPK as it is elevated. Previously: Anand catheter Blood sugar control Slow hydration Monitor renal parameters Kidney ultrasound no hydronephrosis 2D echocardiogram ejection fraction 60 to 65%. Per orders Objective Objective Last 24 Hour Vital Signs Date Time Temp Pulse Resp B/P (MAP) Pulse Ox O2 Delivery O2 Flow Rate FiO2 11/01/20 13:47 98.2 96 11/01/20 13:17 97.6 98 11/01/20 12:49 Nasal Cannula 1.0 11/01/20 12:47 98.1 95 11/01/20 12:00 98.1 102 18 172/86 (114) 95 11/01/20 09:20 174/89 11/01/20 09:00 Nasal Cannula 1.0 11/01/20 08:00 98.5 107 20 174/89 (117) 94 11/01/20 08:00 112 11/01/20 04:00 97.5 102 20 154/96 (115) 96 11/01/20 04:00 97 11/01/20 03:05 163 20 96 11/01/20 02:37 157 156/102 11/01/20 02:19 Nasal Cannula 2.0 11/01/20 01:56 163 11/01/20 01:25 98.4 81 16 151/93 99 Room Air 11/01/20 00:45 98.4 81 16 151/93 99 Room Air 10/31/20 23:00 96.3 82 16 143/90 99 Room Air 10/31/20 21:40 96.3 10/31/20 21:40 96.3 10/31/20 21:30 98.8 85 19 149/71 99 Room Air 10/31/20 20:00 98.8 91 22 158/73 97 Room Air 10/31/20 18:05 96.3 88 22 153/69 97 Room Air 10/31/20 16:37 96.3 85 22 196/82 97 Room Air 10/31/20 16:19 222/100 Intake and Output 10/31/20 11/01/20 19:00 07:00 Intake Total 1200 ml Output Total 2100 ml Balance -900 ml Intake Oral 1200 ml Output Urine Total 1900 ml Emesis 200 ml # Voids 1 Laboratory Tests 10/31/20 18:30: Sodium Level 143#, Potassium Level 2.8L, Chloride Level 109H, Carbon Dioxide Level 23, Anion Gap 11, Blood Urea Nitrogen 57H, Creatinine 3.7H, Estimat Glomerular Filtration Rate 16.1, Glucose Level 581#*H, Calcium Level 7.8L 10/31/20 23:30: Sodium Level 143, Potassium Level 3.5, Chloride Level 108H, Carbon Dioxide Level 24, Anion Gap 12, Blood Urea Nitrogen 54H, Creatinine 3.5H, Estimat Glomerular Filtration Rate 17.1, Glucose Level 474#H, Calcium Level 8.2L 10/31/20 23:32: POC Whole Blood Glucose 441H 11/01/20 02:01: POC Whole Blood Glucose 411H 11/01/20 05:20: Urine Eosinophils None seen 11/01/20 05:27: White Blood Count 13.3H, Red Blood Count 4.67L, Hemoglobin 14.0L, Hematocrit 42.7, Mean Corpuscular Volume 91#, Mean Corpuscular Hemoglobin 29.9, Mean Corpuscular Hemoglobin Concent 32.7, Red Cell Distribution Width 13.2, Platelet Count 190, Mean Platelet Volume 8.6, Neutrophils (%) (Auto) , Lymphocytes (%) (Auto) , Monocytes (%) (Auto) , Eosinophils (%) (Auto) , Basophils (%) (Auto) , Differential Total Cells Counted 100, Neutrophils % (Manual) 90H, Lymphocytes % (Manual) 6L, Monocytes % (Manual) 4, Eosinophils % (Manual) 0, Basophils % (Manual) 0, Band Neutrophils 0, Platelet Estimate Adequate, Platelet Morphology Normal, Red Blood Cell Morphology Normal, Sodium Level 143, Potassium Level 3.5, Chloride Level 109H, Carbon Dioxide Level 18L, Anion Gap 16H, Blood Urea Nitrogen 52H, Creatinine 3.2H, Estimat Glomerular Filtration Rate 19.0, Glucose Level 459H, Uric Acid 8.1H, Calcium Level 7.7L, Phosphorus Level 4.7, Magnesium Level 2.4, Total Bilirubin 0.5, Gamma Glutamyl Transpeptidase 29, Aspartate Amino Transf (AST/SGOT) 51H, Alanine Aminotransferase (ALT/SGPT) 36, Alkaline Phosphatase 88, Total Creatine Kinase 1898H, Troponin I 0.315H, C-Reactive Protein, Quantitative [Pending], Pro-B-Type Natriuretic Peptide 3111H, Total Protein 5.3L, Albumin 2.4L, Globulin 2.9, Albumin/Globulin Ratio 0.8L, Triglycerides Level 349H, Cholesterol Level 197, LDL Cholesterol 95, HDL Cholesterol 39L, Cholesterol/HDL Ratio 5.1H, Thyroid Stimulating Hormone (TSH) 0.097L, Free Thyroxine 1.86H 11/01/20 13:30: Troponin I 0.328H Height (Feet): 5 Height (Inches): 5.00 Weight (Pounds): 150 Garth Buckley MD Nov 01, 2020 15:48
--- NOTE | 2020-11-01 16:00 | Consultation ---
DATE OF CONSULTATION: 11/01/2020 NOTE: INCOMPLETE DICTATION INFECTIOUS DISEASES CONSULTATION CONSULTING PHYSICIAN: Reji Connelly MD PRIMARY ATTENDING PHYSICIAN: Corey Soto MD REASON FOR CONSULTATION: COVID-19 positive test. HISTORY OF PRESENT ILLNESS: The patient is a 75-year-old male admitted yesterday from home complaining of nausea, vomiting. He had elevated blood sugar. Blood sugar was 1087 in the ER and he had mild ketoacidosis. Will dictate this consult again Reji Connelly M.D. DR: Prosper JOB#: [id number] CC: SHEEBA
--- NOTE | 2020-11-01 16:18 | NUR ---
NURSE NOTES: Dr Soto contacted for inability to reinsert f/t after patient pulled it out. Nonstop hematuria with clots. Attempted with second RN, no success. New order to contact Dr Serrano (urology). Spoke to Ashlie in Dr Serrano's office and doctor to see the patient soon.
[2020-11-01] MEDS: Allopurinol 100mg Tab ORAL SCH (16:23)
--- NOTE | 2020-11-01 18:06 | NUR ---
NURSE NOTES: Daughter Ashley contacted to notify of transfer to ICU and current heart rhythm/rate, also informed of urology consult.
--- NOTE | 2020-11-01 18:12 | Consultation ---
Consult Note Consult Note CONSULTING PHYSICIAN: Petros Stewart MD. REFERRING PHYSICIAN: Corey Soto MD. REASON FOR CONSULTATION: COVID 19 pneumonia. HISTORY OF PRESENT ILLNESS: The patient is a 75-year-old Indonesian gentleman with history of diabetes, who was brought in from home for generalized weakness and nausea, vomiting, and elevated blood sugar for two days. The patient was also hypertensive upon arrival. The patient states that he was tested negative for COVID nine days ago, however, he lives his who is positive for COVID. The patient initially was in sinus rhythm, however, subsequently developed atrial flutter with rapid ventricular response. REVIEW OF SYSTEMS: Negative other than what was mentioned in history of present illness. PAST MEDICAL HISTORY: As mentioned above. FAMILY HISTORY: Noncontributory. SOCIAL HISTORY: He lives at home with his . PHYSICAL EXAMINATION: VITAL SIGNS: Show blood pressure of 174/89 and pulse is 107, but was 163 at 3 a.m. HEAD AND NECK: Shows no JVD. LUNGS: Clear. CARDIOVASCULAR: Shows regular S1 and S2 with no gallop. ABDOMEN: Soft. EXTREMITIES: No pitting edema. LABORATORY AND DIAGNOSTIC DATA: Labs show white count 13.7, hematocrit of 14, hematocrit 42, and platelet count of 190,000. Sodium 142, potassium 3.5, BUN of 52, creatinine 3.5, glucose of 459. His troponin is at 0.315 and 0.255. ASSESSMENT AND PLAN: 1. Non-ST elevation myocardial infarction. - cardiology following 2. Diabetic ketoacidosis - seen by endocrinology - continue fluids - insulin 3. Atrial flutter with rapid ventricular response. Continue metoprolol 50 mg b.i.d. 4. COVID positive pneumonia. - Decadron - Remdesiver per ID - Lovenox - - Supplemental O2 5. Renal failure with creatinine of 3.5. 6. Accelerated hypertension. I Petros Morillo M.D., MD Nov 01, 2020 18:12
--- NOTE | 2020-11-01 18:44 | NUR ---
NURSE NOTES: Patient transferred to ICU room 246-A, report given to Lucero Gabriel RN. Belongings list verified, IV in the left FA, patient denies pain, on 2 L NC, Bilateral soft wrist restraints inplace. Heart monitor removed.
--- NOTE | 2020-11-01 18:45 | NUR ---
NURSE NOTES: Report received from ARPITA Silva from 2E. Patient came from 211-2. Belonging list checked. Setswana speaking. Febrile. Axillary temp 102.0. Chills noted. Will administer Tylenol and start cooling measures. Oriented to name and confused at times. Restless. Continued bilateral soft wrist restraints. A-fib with RVR with HR 170-190's on hall monitor. On 2L N/C. O2 sat 98-100%. Cardizem order 10mg/hr fixed rate from Dr Escalante received and noted. Will carry out the order. Patient is actively bleeding from penis due to trauma from pulling out brenner by patient. Dr Serrano here to see the patient. No skin issues. IV to left FA G22 patent and asymptomatic. NS is running at 75cc/hr. Bed in lowest position. Side rails up x 3. Call light within reach. Bed alarm on. Will resume plan of care.
[2020-11-01] MEDS: Acetaminophen 500mg (ES) tab ORAL PRN (18:50)
--- NOTE | 2020-11-01 18:50 | NUR ---
NURSE NOTES: Tylenol 500mg given for fever 102.n Will reassess temp later. Dr Serrano attempted to insert Brenner x 3 with no luck. Patient voided while removing last brenner. Doctor is okay with condom cath since patient is able to void by himself. Jose drfly was brought by pharmacy and accidently spilled over floor. Asked pharmacy to make another one.
--- NOTE | 2020-11-01 19:08 | Consultation ---
History of Present Illness General Date patient seen: Nov 01, 2020 Chief Complaint: Abnormal Labs hematuria retention Referring physician: Geovanny Reason for Consultation: pulled brenner hematuria Present Illness Allergies: Coded Allergies: No Known Allergies (Unverified , 10/31/20) Patient History Limited by: language barrier History Provided By: Medical Record Healthcare decision maker Resuscitation status Advanced Directive on File Past Medical/Surgical History Past Medical/Surgical History: (1) COVID-19 virus infection Physical Exam Abdomen: soft, hypoactive bowel sounds, distended Genitourinary/Rectal: enlarged prostate, blood at urethral meatus Last 24 Hour Vital Signs Date Time Temp Pulse Resp B/P (MAP) Pulse Ox O2 Delivery O2 Flow Rate FiO2 11/01/20 18:17 98.9 98 11/01/20 17:17 98.5 98 11/01/20 16:23 98 134/91 11/01/20 16:17 97.3 95 11/01/20 16:00 98.7 105 19 138/80 (99) 94 11/01/20 16:00 106 11/01/20 15:17 98.1 98 11/01/20 14:17 98.5 99 11/01/20 13:47 98.2 96 11/01/20 13:17 97.6 98 11/01/20 12:49 Nasal Cannula 1.0 11/01/20 12:47 98.1 95 11/01/20 12:00 104 11/01/20 12:00 98.1 102 18 172/86 (114) 95 11/01/20 09:20 174/89 11/01/20 09:00 Nasal Cannula 1.0 11/01/20 08:00 98.5 107 20 174/89 (117) 94 11/01/20 08:00 112 11/01/20 04:00 97.5 102 20 154/96 (115) 96 11/01/20 04:00 97 11/01/20 03:05 163 20 96 11/01/20 02:37 157 156/102 11/01/20 02:19 Nasal Cannula 2.0 11/01/20 01:56 163 11/01/20 01:25 98.4 81 16 151/93 99 Room Air 11/01/20 00:45 98.4 81 16 151/93 99 Room Air 10/31/20 23:00 96.3 82 16 143/90 99 Room Air 10/31/20 21:40 96.3 10/31/20 21:40 96.3 10/31/20 21:30 98.8 85 19 149/71 99 Room Air 10/31/20 20:00 98.8 91 22 158/73 97 Room Air Intake and Output 10/31/20 11/01/20 19:00 07:00 Intake Total 1200 ml Output Total 2100 ml Balance -900 ml Intake Oral 1200 ml Output Urine Total 1900 ml Emesis 200 ml # Voids 1 Laboratory Tests Test 10/31/20 23:30 10/31/20 23:32 11/01/20 02:01 11/01/20 05:20 Sodium Level 143 MMOL/L (136-145) Potassium Level 3.5 MMOL/L (3.5-5.1) Chloride Level 108 MMOL/L (98-107) H Carbon Dioxide Level 24 MMOL/L (21-32) Anion Gap 12 mmol/L (5-15) Blood Urea Nitrogen 54 mg/dL (7-18) H Creatinine 3.5 MG/DL (0.55-1.30) H Estimat Glomerular Filtration Rate 17.1 mL/min (>60) Glucose Level 474 MG/DL (74-106) #H Calcium Level 8.2 MG/DL (8.5-10.1) L POC Whole Blood Glucose 441 MG/DL (74-106) H 411 MG/DL (74-106) H Urine Eosinophils None seen (NONE SEEN) Test 11/01/20 05:27 11/01/20 13:30 11/01/20 18:18 White Blood Count 13.3 K/UL (4.8-10.8) H Red Blood Count 4.67 M/UL (4.70-6.10) L Hemoglobin 14.0 G/DL (14.2-18.0) L Hematocrit 42.7 % (42.0-52.0) Mean Corpuscular Volume 91 FL (80-99) # Mean Corpuscular Hemoglobin 29.9 PG (27.0-31.0) Mean Corpuscular Hemoglobin Concent 32.7 G/DL (32.0-36.0) Red Cell Distribution Width 13.2 % (11.6-14.8) Platelet Count 190 K/UL (150-450) Mean Platelet Volume 8.6 FL (6.5-10.1) Neutrophils (%) (Auto) % (45.0-75.0) Lymphocytes (%) (Auto) % (20.0-45.0) Monocytes (%) (Auto) % (1.0-10.0) Eosinophils (%) (Auto) % (0.0-3.0) Basophils (%) (Auto) % (0.0-2.0) Differential Total Cells Counted 100 Neutrophils % (Manual) 90 % (45-75) H Lymphocytes % (Manual) 6 % (20-45) L Monocytes % (Manual) 4 % (1-10) Eosinophils % (Manual) 0 % (0-3) Basophils % (Manual) 0 % (0-2) Band Neutrophils 0 % (0-8) Platelet Estimate Adequate Platelet Morphology Normal Red Blood Cell Morphology Normal Sodium Level 143 MMOL/L (136-145) Potassium Level 3.5 MMOL/L (3.5-5.1) Chloride Level 109 MMOL/L (98-107) H Carbon Dioxide Level 18 MMOL/L (21-32) L Anion Gap 16 mmol/L (5-15) H Blood Urea Nitrogen 52 mg/dL (7-18) H Creatinine 3.2 MG/DL (0.55-1.30) H Estimat Glomerular Filtration Rate 19.0 mL/min (>60) Glucose Level 459 MG/DL (74-106) H Uric Acid 8.1 MG/DL (2.6-7.2) H Calcium Level 7.7 MG/DL (8.5-10.1) L Phosphorus Level 4.7 MG/DL (2.5-4.9) Magnesium Level 2.4 MG/DL (1.8-2.4) Total Bilirubin 0.5 MG/DL (0.2-1.0) Gamma Glutamyl Transpeptidase 29 U/L (5-85) Aspartate Amino Transf (AST/SGOT) 51 U/L (15-37) H Alanine Aminotransferase (ALT/SGPT) 36 U/L (12-78) Alkaline Phosphatase 88 U/L (46-116) Total Creatine Kinase 1898 U/L (26-308) H Troponin I 0.315 ng/mL (0.000-0.056) 0.328 ng/mL (0.000-0.056) C-Reactive Protein, Quantitative 9.6 mg/L (<5) H Pro-B-Type Natriuretic Peptide 3111 pg/mL (0-125) H Total Protein 5.3 G/DL (6.4-8.2) L Albumin 2.4 G/DL (3.4-5.0) L Globulin 2.9 g/dL Albumin/Globulin Ratio 0.8 (1.0-2.7) L Triglycerides Level 349 MG/DL (30-150) H Cholesterol Level 197 MG/DL (< 200) LDL Cholesterol 95 mg/dL (<100) HDL Cholesterol 39 MG/DL (40-60) L Cholesterol/HDL Ratio 5.1 (3.3-4.4) H Thyroid Stimulating Hormone (TSH) 0.097 uiU/mL (0.358-3.740) Free Thyroxine 1.86 NG/DL (0.76-1.46) H POC Whole Blood Glucose Pending Height (Feet): 5 Height (Inches): 5.00 Weight (Pounds): 150 Medications Current Medications Medications (Trade) Dose Ordered Sig/Manasa Route PRN Reason Start Time Stop Time Status Last Admin Dose Admin Acetaminophen (Tylenol) 500 mg Q4H PRN ORAL For Pain 11/01/20 01:00 12/01/20 00:59 Allopurinol (Zyloprim) 200 mg DAILY ORAL 11/01/20 16:00 12/01/20 15:59 11/01/20 16:23 Amlodipine Besylate (Norvasc) 10 mg DAILY ORAL 11/02/20 09:00 12/02/20 08:59 Clonidine HCl (Catapres Tab) 0.1 mg Q4H PRN ORAL bp over 160 syst 10/31/20 17:45 01/29/21 17:44 11/01/20 09:20 Dextrose (Dextrose 50%) 25 ml Q30M PRN IV Hypoglycemia 11/01/20 07:15 01/30/21 07:14 Dextrose (Dextrose 50%) 50 ml Q30M PRN IV Hypoglycemia 11/01/20 07:15 01/30/21 07:14 Diltiazem HCl 125 mg/Sodium Chloride 125 ml @ 10 mls/hr Q24H IVPB 11/01/20 18:36 11/02/20 18:36 Docusate Sodium (Colace) 100 mg TWICE A DAY ORAL 10/31/20 18:00 11/30/20 17:59 11/01/20 17:39 Insulin Aspart (NovoLOG) BEFORE MEALS AND HS SUBQ 11/01/20 11:30 01/30/21 11:29 11/01/20 13:23 Insulin Aspart (NovoLOG) 8 units NOVOTIAC SUBQ 11/01/20 11:50 01/30/21 11:49 11/01/20 13:23 Insulin Detemir (Levemir) 24 units DAILY SUBQ 11/01/20 09:00 01/30/21 08:59 11/01/20 08:49 Metoprolol Tartrate (Lopressor) 50 mg Q12HR ORAL 11/01/20 21:00 01/30/21 20:59 Pantoprazole (Protonix) 40 mg BID ORAL 10/31/20 18:00 11/30/20 17:44 11/01/20 17:39 Sodium Chloride 1,000 ml @ 75 mls/hr [id number] IV 10/31/20 17:45 11/30/20 17:44 11/01/20 07:58 Assessment/Plan Status: unchanged Assessment/Plan: failed brenner insertion voiding spontaniously Will place condom cath and observe Diagnosis Heath I: retention bph hematuria Stanford Serrano MD Nov 01, 2020 19:08
--- NOTE | 2020-11-01 19:20 | NUR ---
NURSE HAND-OFF REPORT: Latest Vital Signs: Temperature 102.5 , Pulse 173 , B/P 137 /67 , Respiratory Rate 32 , O2 SAT 94 , Nasal Cannula, O2 Flow Rate 2.0 . Vital Sign Comment: EKG Rhythm: A-fib with RVR Rhythm change?: N MD Notified?: MD Response: Latest Bhat Fall Score: 35 Fall Risk: Medium Risk Safety Measures: Call light Within Reach, Bed Alarm Zone 1, Side Rails Side Rails x2, Bed position Low and Locked. Fall Precautions: Yellow Socks Report given to Faustina Fraga RN.
--- NOTE | 2020-11-01 19:21 | NUR ---
NURSE NOTES: received pt from Nicole PALM., pt is awake AO x 1 at this time. pt is confused. old blood noted in penis area ( no active bleeding at this time). condom cath applied. pt has 2L of NC O2 sat is at 98%. Left hand 22g IV site intact, clean, and patent, NS is running at 75ml/hr.bilateral soft wrist restrain noted, skin intact, clean, and patent. elevated temperature noted. call light within reach. will continue to monitor pt. bed at the lowest position, alarmed and locked.
[2020-11-01] MEDS: dilTIAZem HCL 125 MG in NS 100 ML IVPB SCH (19:23)
--- NOTE | 2020-11-01 20:20 | NUR ---
NURSE NOTES: left voice mail to Dr. Escalante regarding pt's SBP went down to 90s with cardizem 10mg/hr. lowered cardizem to 5mg/hr due to pt changes of condition. also notified regarding pt is still A.Fib RVR HR with 170s. O2sat is 95%. AOx1. call light within reach. will continue to monitor pt.
[2020-11-01] MEDS: Metoprolol Tartrate 50mg tab ORAL SCH (20:25)
--- NOTE | 2020-11-01 20:36 | Psychiatric Progress Note ---
Psychiatry Progress Note Psychiatry Progress Note Medications Current Medications Medications (Trade) Dose Ordered Sig/Manasa Route PRN Reason Start Time Stop Time Status Last Admin Dose Admin Acetaminophen (Tylenol) 500 mg Q4H PRN ORAL For Pain 11/01/20 01:00 12/01/20 00:59 11/01/20 18:50 Allopurinol (Zyloprim) 200 mg DAILY ORAL 11/01/20 16:00 12/01/20 15:59 11/01/20 16:23 Amlodipine Besylate (Norvasc) 10 mg DAILY ORAL 11/02/20 09:00 12/02/20 08:59 Clonidine HCl (Catapres Tab) 0.1 mg Q4H PRN ORAL bp over 160 syst 10/31/20 17:45 01/29/21 17:44 11/01/20 09:20 Dextrose (Dextrose 50%) 25 ml Q30M PRN IV Hypoglycemia 11/01/20 07:15 01/30/21 07:14 Dextrose (Dextrose 50%) 50 ml Q30M PRN IV Hypoglycemia 11/01/20 07:15 01/30/21 07:14 Diltiazem HCl 125 mg/Sodium Chloride 125 ml @ 10 mls/hr Q24H IVPB 11/01/20 18:36 11/02/20 18:36 11/01/20 19:23 Docusate Sodium (Colace) 100 mg TWICE A DAY ORAL 10/31/20 18:00 11/30/20 17:59 11/01/20 17:39 Insulin Aspart (NovoLOG) BEFORE MEALS AND HS SUBQ 11/01/20 11:30 01/30/21 11:29 11/01/20 13:23 Insulin Aspart (NovoLOG) 8 units NOVOTIAC SUBQ 11/01/20 11:50 01/30/21 11:49 11/01/20 13:23 Insulin Detemir (Levemir) 24 units DAILY SUBQ 11/01/20 09:00 01/30/21 08:59 11/01/20 08:49 Metoprolol Tartrate (Lopressor) 50 mg Q12HR ORAL 11/01/20 21:00 01/30/21 20:59 Pantoprazole (Protonix) 40 mg BID ORAL 10/31/20 18:00 11/30/20 17:44 11/01/20 17:39 Sodium Chloride 1,000 ml @ 75 mls/hr [id number] IV 10/31/20 17:45 11/30/20 17:44 11/01/20 07:58 Neurological/Psychiatric: Reports: anxiety, depressed, emotional problems Allergies: Coded Allergies: No Known Allergies (Unverified , 10/31/20) Objective Data Height (Feet): 5 Height (Inches): 5.00 Weight (Pounds): 150 Additional Comments: The patient is confused, disoriented, Slovenian-speaking. Mood is agitated. Affect is flat. Thought process disorganized. Thought content, no suicidal, homicidal ideation. Cognition is impaired. Insight and judgment is impaired. ASSESSMENT: [place] I Acute toxic encephalopathy. Dementia. [place] II Deferred. [place] III COVID-19. [place] IV Low. [place] V 20 PLAN: 1. We will start the patient on soft restraints. 2. Continue to follow and readjust the meds. Assessment/Plan Status: unchanged Brigido Singh MD Nov 01, 2020 20:36
[2020-11-01] MEDS ORDERED: Acetaminophen 650 MG SUPP RECTAL PRN (21:30)
--- NOTE | 2020-11-01 22:00 | History and Physical Report ---
DATE OF ADMISSION: 10/31/2020 HISTORY OF PRESENT ILLNESS: Patient comes in with weakness, vomiting, and elevated blood sugar for about 2 days. Patient also has elevated blood pressure. Patient denies any respiratory symptoms. Denies chest pain. Denies nausea, vomiting, or diarrhea. Patient was found to have COVID positive, also was admitted for DKA, acute renal failure. Glucose was very high, was initially on insulin drip. Patient also has acute renal failure. Patient also had an episode of atrial flutter at the hospital that responded to Cardizem. Cannot get any more history from the patient. Denies headache. PAST MEDICAL HISTORY: Hypertension, diabetes. PAST SURGICAL HISTORY: None. FAMILY HISTORY: Noncontributory. SOCIAL HISTORY: Denies history of smoking. Denies history of alcohol abuse. Denies history of drug abuse. MEDICATIONS: Does not know the name of the medications. REVIEW OF SYSTEMS: HEENT: Denies headaches. RESPIRATORY: Denies shortness of breath. Denies cough. CARDIOVASCULAR: Denies chest pain. No orthopnea. GASTROINTESTINAL: Does have nausea and vomiting. EXTREMITIES: Does have generalized weakness and body aches. CENTRAL NERVOUS SYSTEM: Feels very weak. PHYSICAL EXAMINATION: VITAL SIGNS: Temperature was 102.9, pulse is 173, blood pressure 98/60. HEENT: PERRLA. NECK: Supple. CHEST: Clear to auscultation. CARDIOVASCULAR: Tachycardic. GASTROINTESTINAL: Soft, nontender, nondistended. No organomegaly. EXTREMITIES: No edema. Moves all 4 extremities. NEUROLOGIC: He is able to move all extremities. Has generalized weakness. LABORATORY DATA: WBC of 10.8, hemoglobin of 14.7, platelets 205. Troponin 0.315. ASSESSMENT AND PLAN: COVID positive pneumonia, DKA, acute renal failure, borderline elevated troponin, episode of atrial flutter in the hospital. Patient was initially on insulin drip. I have consulted Dr. Escalante, Dr. Buckley, Dr. Markus Tamez, Dr. Petros Stewart, Dr. Reji Connelly, Dr. Singh, and Dr. Stanford Serrano because patient also pulled out the Anand and with gross hematuria and blood clots and also patient fell on the floor in the hospital and was very agitated. Antibiotics per Dr. Reji Connelly. Patient has also been consulted by Dr. Stewart for COVID positive pneumonia and by Dr. Tamez for the management of the DKA as well as Dr. Buckley for the management of the acute renal failure. Patient currently needs IV fluids. Corey Soto M.D. DR: LINDA JOB#: [id number] CC:
--- NOTE | 2020-11-01 22:39 | NUR ---
NURSE NOTES: left message to Dr. Escalante regarding elevated troponin 0.636. will wait for call back.
--- NOTE | 2020-11-01 23:29 | Consultation ---
DATE OF CONSULTATION: This is a 75-year-old male with a history of multiple medical issues, diabetes, who has been admitted to the hospital for medical stabilization. The patient became agitated. In addition, he has COVID-19. He became agitated. He fell out of the bed and pulled out his IV line. I was consulted to prescribe him medication. The patient was placed on soft restraints. The patient is confused, easily agitated, and he is unstable. PAST PSYCHIATRIC HISTORY: Dementia. PAST MEDICAL HISTORY: Significant for renal failure, COVID-19, rhabdomyolysis, and diabetes. ALLERGIES: No known drug allergies. SUBSTANCE ABUSE HISTORY: No known history of illicit drug use noted. MENTAL STATUS EXAMINATION: The patient is confused, disoriented, Kyrgyz-speaking. Mood is agitated. Affect is flat. Thought process disorganized. Thought content, no suicidal, homicidal ideation. Cognition is impaired. Insight and judgment is impaired. ASSESSMENT: [place] I Acute toxic encephalopathy. Dementia. [place] II Deferred. [place] III COVID-19. [place] IV Low. [place] V 20 PLAN: 1. We will start the patient on soft restraints. 2. Continue to follow and readjust the meds. Brigido Singh M.D. DR: KENIA JOB#: [id number] CC:
[2020-11-02] VITALS (29 sets, daily range): BP systolic 90–160; BP diastolic 54–120
--- NOTE | 2020-11-02 | NUR ---
NURSE NOTES: cleaned pt, oral care given. 2 BM noted at this time, brown, no bleeding, large liquid BM. pt is very agitated. AOx 2-3 confused at this time. pt is trying to get out from the bed. call light within reach. will continue to monitor pt with plan of care.
--- NOTE | 2020-11-02 02:00 | NUR ---
NURSE NOTES: pt is awake and AOx 2-3 at this time, explained not to get out from the bed. pt is keep trying to get out from the bed regardless of explanation. call light within reach. will continue to monitor pt.
--- NOTE | 2020-11-02 02:27 | Cardiology Report ---
APPROVED REPORT EKG Measurement Heart [id number] FL [id number] <Conclusion> Normal sinus rhythm Nonspecific T wave abnormality Abnormal ECG
--- NOTE | 2020-11-02 02:27 | Cardiology Report ---
APPROVED REPORT EXAM: Two-dimensional and M-mode echocardiogram with Doppler and color Doppler. INDICATION Atrial flutter M-Mode DIMENSIONS IVSd0.9 (0.7-1.1cm)Left Atrium (MM)3.3 (1.6-4.0cm) LVDd5.6 (3.5-5.6cm)Aortic Root3.6 (2.0-3.7cm) PWd0.9 (0.7-1.1cm)Aortic Cusp Exc.1.8 (1.5-2.0cm) IVSs1.4 cmEPSS0.7 (>1.0cm) LVDs4.0 (2.5-4.0cm) PWs1.1 cm <Conclusion> Technically difficult study due to poor parasternal acoustical windows. Normal left ventricular chamber size, systolic function and wall motion to extent visualized. Left ventricular ejection fraction estimated to be 60-65%. No evidence of left ventricular hypertrophy. No evidence of pericardial effusion. All other cardiac chamber sizes are within normal limits. Focal aortic valve sclerosis with adequate cusp excursion. Thickened mitral valve leaflets with normal excursion. Mitral annulus and aortic root calcification. Pulmonic valve not well visualized. Normal tricuspid valve structure. IVC at normal size with physiologic collapse. A color flow and spectral Doppler study was performed and revealed: Mild aortic regurgitation. Trace mitral regurgitation. Mitral diastolic velocities suggest reduced left ventricular relaxation c/w mild LV diastolic dysfunction (Grade I ). Trace tricuspid regurgitation. Tricuspid systolic velocities suggests peak right ventricular systolic pressure of 12 mmHg.
--- NOTE | 2020-11-02 04:00 | NUR ---
NURSE NOTES: pt is aware where is at AOx3-4 but pt has somewhat confusion at this time. call light within reach. will continue to monitor pt with plan care. no active bleeding noted. pt has another BM at this time, brown, large liquid BM.
--- NOTE | 2020-11-02 05:10 | NUR ---
NURSE HAND-OFF REPORT: Important Events on Shift:[covid, s/p fall, Cardizem drip fixed rate at this time, EKG needs to be done, needs to collect urine,] Patient Status: [stable] Diet: [renal] Pending Orders: [troponin , AM labs, ] Pending Results/Labs:[all morning LAb] Pending MD notification:[] Latest Vital Signs: Temperature 99.8 , Pulse 169 , B/P 134 /120 , Respiratory Rate 32 , O2 SAT 95 , Nasal Cannula, O2 Flow Rate 2.0 . Vital Sign Comment: [stable] EKG Rhythm: A-fib with RVR Rhythm change?: N Notified?: Amari Soto MD Response: Message left await call Latest Bhat Fall Score: 45 Fall Risk: High Risk Safety Measures: Call light Within Reach, Bed Alarm Zone 1, Side Rails Side Rails x3, Bed position Low and Locked. Fall Precautions: Yellow Socks Report given to [Js RN].
--- NOTE | 2020-11-02 05:48 | NUR ---
NURSE NOTES: pt transferred to SDU. Report received from ARPITA Weems. Pt lying in the bed, somewhat confused, but able to make needs known. S/P fall noted. Matthew wrists restraints noted. SR noted. On 2L NC, saturating at 95%. Unable to start f/c by MD aware. Rectal tube noted. Bed in the lowest position. Side rails up x3. Bed alarm on. Call light within reach. Will continue to monitor.
--- NOTE | 2020-11-02 05:50 | NUR ---
NURSE NOTES: On cardizem drip, BP 152/73 noted, HR of 92 Afib noted. pt awake, calm. Will continue to monitor.
[2020-11-02 06:13] LABS: CKMB 5.8 NG/ML (0.0-3.6)
--- NOTE | 2020-11-02 06:36 | General Progress Note ---
Subjective ROS Limited/Unobtainable: Yes Allergies: Coded Allergies: No Known Allergies (Unverified , 10/31/20) Subjective events noted interval notes reviewed glucose values improved TSH suppressed and free T4 elevated Item Value Date Time Bedside Blood Glucose 188 mg/dl H 11/01/20 2117 Bedside Blood Glucose 129 mg/dl H 11/01/20 1650 Bedside Blood Glucose 328 mg/dl H 11/01/20 1323 Bedside Blood Glucose 455 mg/dl H 11/01/20 0849 Bedside Blood Glucose 455 mg/dl H 11/01/20 0635 Objective Last 24 Hour Vital Signs Date Time Temp Pulse Resp B/P (MAP) Pulse Ox O2 Delivery O2 Flow Rate FiO2 11/02/20 04:00 99.1 146 19 123/54 (77) 96 11/02/20 03:00 145 0 90/63 (72) 91 11/02/20 02:00 127 31 137/99 (112) 93 11/02/20 01:00 178 35 116/79 (91) 97 11/02/20 00:13 180 34 128/63 (84) 11/02/20 00:00 169 32 134/120 (125) 95 11/02/20 00:00 Nasal Cannula 2.0 11/01/20 22:17 99.8 96 11/01/20 21:00 Nasal Cannula 1.0 11/01/20 20:25 167 96/68 11/01/20 19:23 173 137/67 11/01/20 19:20 102.5 11/01/20 19:00 Nasal Cannula 2.0 11/01/20 19:00 175 32 108/66 (80) 94 11/01/20 18:40 Nasal Cannula 2.0 11/01/20 18:40 102.0 173 30 98/60 (73) 96 11/01/20 18:17 98.9 98 11/01/20 17:17 98.5 98 11/01/20 16:23 98 134/91 11/01/20 16:17 97.3 95 11/01/20 16:00 98.7 105 19 138/80 (99) 94 11/01/20 16:00 106 11/01/20 15:17 98.1 98 11/01/20 14:17 98.5 99 11/01/20 13:47 98.2 96 11/01/20 13:17 97.6 98 11/01/20 12:49 Nasal Cannula 1.0 11/01/20 12:47 98.1 95 11/01/20 12:00 104 11/01/20 12:00 98.1 102 18 172/86 (114) 95 11/01/20 09:20 174/89 11/01/20 09:00 Nasal Cannula 1.0 11/01/20 08:00 98.5 107 20 174/89 (117) 94 11/01/20 08:00 112 Intake and Output 11/01/20 11/02/20 19:00 07:00 Intake Total 475 ml 921.33198 ml Output Total 500 ml Balance -25 ml 921.82385 ml Intake Oral 400 ml IV Total 75 ml 921.56706 ml Output Urine Total 500 ml # Bowel Movements 2 3 Laboratory Tests 11/01/20 13:30: Troponin I 0.328H 11/01/20 18:18: POC Whole Blood Glucose [Pending] 11/01/20 21:25: Troponin I 0.636H 11/02/20 02:00: Troponin I 0.808H, Uric Acid 8.1H, Total Creatine Kinase 1838H, Creatine Kinase MB 5.8H, Creatine Kinase MB Relative Index 0.3, Pro-B-Type Natriuretic Peptide 6723H, Thyroid Stimulating Hormone (TSH) 0.066L, Free Thyroxine 1.67H Height (Feet): 5 Height (Inches): 5.00 Weight (Pounds): 150 Objective Current Medications Medications (Trade) Dose Ordered Sig/Manasa Route PRN Reason Start Time Stop Time Status Last Admin Dose Admin Acetaminophen (Tylenol) 500 mg Q4H PRN ORAL For Pain 11/01/20 01:00 12/01/20 00:59 11/01/20 18:50 Acetaminophen (Tylenol) 650 mg Q4H PRN RECTAL Temp >100.5 11/01/20 21:30 12/01/20 21:29 Allopurinol (Zyloprim) 200 mg DAILY ORAL 11/01/20 16:00 12/01/20 15:59 11/01/20 16:23 Amlodipine Besylate (Norvasc) 10 mg DAILY ORAL 11/02/20 09:00 12/02/20 08:59 Clonidine HCl (Catapres Tab) 0.1 mg Q4H PRN ORAL bp over 160 syst 10/31/20 17:45 01/29/21 17:44 11/01/20 09:20 Dextrose (Dextrose 50%) 25 ml Q30M PRN IV Hypoglycemia 11/01/20 07:15 01/30/21 07:14 Dextrose (Dextrose 50%) 50 ml Q30M PRN IV Hypoglycemia 11/01/20 07:15 01/30/21 07:14 Diltiazem HCl 125 mg/Sodium Chloride 125 ml @ 10 mls/hr Q24H IVPB 11/01/20 18:36 11/02/20 18:36 11/01/20 19:23 Docusate Sodium (Colace) 100 mg TWICE A DAY ORAL 10/31/20 18:00 11/30/20 17:59 11/01/20 17:39 Insulin Aspart (NovoLOG) BEFORE MEALS AND HS SUBQ 11/01/20 11:30 01/30/21 11:29 11/01/20 21:17 Insulin Aspart (NovoLOG) 8 units NOVOTIAC SUBQ 11/01/20 11:50 01/30/21 11:49 11/01/20 13:23 Insulin Detemir (Levemir) 24 units DAILY SUBQ 11/01/20 09:00 01/30/21 08:59 11/01/20 08:49 Metoprolol Tartrate (Lopressor) 50 mg Q12HR ORAL 11/01/20 21:00 01/30/21 20:59 Pantoprazole (Protonix) 40 mg BID ORAL 10/31/20 18:00 11/30/20 17:44 11/01/20 17:39 Sodium Chloride 1,000 ml @ 75 mls/hr [id number] IV 10/31/20 17:45 11/30/20 17:44 11/01/20 20:44 Assessment/Plan Problem List: (1) Abnormal thyroid blood test ICD Codes: R79.89 - Other specified abnormal findings of blood chemistry SNOMED: 383813178, 118109585415586 (2) Diabetes mellitus out of control ICD Codes: E11.65 - Type 2 diabetes mellitus with hyperglycemia SNOMED: 50632746, 870749764 (3) Renal failure (ARF), acute on chronic ICD Codes: N17.9 - Acute kidney failure, unspecified; N18.9 - Chronic kidney disease, unspecified SNOMED: 913898045 (4) COVID-19 virus infection ICD Codes: U07.1 - COVID-19 SNOMED: 196300174 (5) DKA (diabetic ketoacidoses) ICD Codes: E11.10 - Type 2 diabetes mellitus with ketoacidosis without coma SNOMED: 683467425, 51955653 (6) NSTEMI (non-ST elevated myocardial infarction) ICD Codes: I21.4 - Non-ST elevation (NSTEMI) myocardial infarction SNOMED: 04381119 Status: unchanged Assessment/Plan: continue Levemir 24 units qam continue Novolog 8 units ac tid + SSI TSH is suppressed and elevated - suggestive of hyperthyroidism repeat TSH and free T4 is pending - will follow the results and start Tapazole if similar results will also assess free T3, YOUNG ARMENTA Reza MD Nov 02, 2020 06:36
[2020-11-02] MEDS: NovoLOG Insulin Flexpen SUBQ SCH ×7 (06:56→20:51)
--- NOTE | 2020-11-02 07:15 | NUR ---
NURSE NOTES:RECEIVED PT ON DROPLET PRECAUTIONS ISOLATION ROOM.PT IS POSITIVE FOR COVID -19. REPORT RECEIVED FROM [employer] INTEGRATOR OF [employer] OFFICER. PT IS ICU STATUS ,ALERT TO NAME BUT CONFUSED. PT IS FULL CODE, RECEIVING CARDIZEN DRIP 10ML/10CC/HRS CONNECT TO H.L ON LT HAND INFUSING WELL. PT ON BILAT SOFT WRIST RESTRAINTS TO PREVENT FALLS AND REMOVING MEDICAL DEVICES.PT REPOSITIONED IN BED AND MADE COMFORTABLE POSSIBLE. FULL BODY ASSESSMENT DONE. PT REMAINS FREE OF INJURIES AT THIS TIME. WILL CONT TO MONITOR.
--- NOTE | 2020-11-02 07:58 | NUR ---
NURSE HAND-OFF REPORT: Pt awake, denies pain at this time. SR noted on EKG, on cardizem drip 10mg at this time. Important Events on Shift:[] Patient Status: Able to communicate. Indonesian speaker. Diet: [] Pending Orders: [] Pending Results/Labs:[] Pending MD notification:[] Latest Vital Signs: Temperature 99.1 , Pulse 99 , B/P 157 /88 , Respiratory Rate 20 , O2 SAT 95 , Nasal Cannula, O2 Flow Rate 2.0 . Vital Sign Comment: [] EKG Rhythm: Sinus Rhythm Rhythm change?: N MD Notified?: Amari oSto MD Response: Message left await call Latest Bhat Fall Score: 45 Fall Risk: High Risk Safety Measures: Call light Within Reach, Bed Alarm Zone 1, Side Rails Side Rails x3, Bed position Low and Locked. Fall Precautions: Yellow Socks Report given to ARPITA Nicole.
[2020-11-02] MEDS: Docusate 100mg cap ORAL SCH ×2 (09:33→17:59)
[2020-11-02] MEDS: Metoprolol Tartrate 50mg tab ORAL SCH ×2 (09:33→20:44)
[2020-11-02] MEDS: Allopurinol 100mg Tab ORAL SCH (09:34)
[2020-11-02] MEDS: Levemir Flexpen SUBQ SCH (09:46)
[2020-11-02 10:30] LABS: CALCIUM 7.9 MG/DL (8.5-10.1)
[2020-11-02 10:35] LABS: ALBUMIN 1.9 G/DL (3.4-5.0); ALBUMIN/GLOBULIN RATIO 0.6 (1.0-2.7); BILIRUBIN,TOTAL 0.4 MG/DL (0.2-1.0); PHOSPHORUS 3.2 MG/DL (2.5-4.9)
--- NOTE | 2020-11-02 10:49 | Pulmonology Progress Note ---
Subjective ROS Limited/Unobtainable: Yes Interval Events: none major reported per nursing Allergies: Coded Allergies: No Known Allergies (Unverified , 10/31/20) Objective Last 24 Hour Vital Signs Date Time Temp Pulse Resp B/P (MAP) Pulse Ox O2 Delivery O2 Flow Rate FiO2 11/02/20 10:00 102 20 147/63 (91) 97 11/02/20 09:34 106 159/72 11/02/20 09:33 106 159/72 11/02/20 09:00 105 20 160/69 (99) 95 11/02/20 08:00 99.0 106 20 159/72 (101) 95 11/02/20 07:00 99 20 157/88 (111) 95 11/02/20 06:17 99.1 95 11/02/20 06:00 99 20 154/86 (108) 95 11/02/20 05:30 99 18 152/73 (99) 95 11/02/20 05:00 99 18 116/60 (78) 95 11/02/20 04:00 75 11/02/20 04:00 99.1 146 19 123/54 (77) 96 11/02/20 03:00 145 0 90/63 (72) 91 11/02/20 02:17 98.9 97 11/02/20 02:00 127 31 137/99 (112) 93 11/02/20 01:00 178 35 116/79 (91) 97 11/02/20 00:13 180 34 128/63 (84) 11/02/20 00:00 169 32 134/120 (125) 95 11/02/20 00:00 Nasal Cannula 2.0 11/02/20 00:00 131 11/01/20 22:17 99.8 96 11/01/20 21:00 Nasal Cannula 1.0 11/01/20 20:25 167 96/68 11/01/20 20:00 183 11/01/20 19:23 173 137/67 11/01/20 19:20 102.5 11/01/20 19:00 Nasal Cannula 2.0 11/01/20 19:00 175 32 108/66 (80) 94 11/01/20 18:40 Nasal Cannula 2.0 11/01/20 18:40 102.0 173 30 98/60 (73) 96 11/01/20 18:17 98.9 98 11/01/20 17:17 98.5 98 11/01/20 16:23 98 134/91 11/01/20 16:17 97.3 95 11/01/20 16:00 98.7 105 19 138/80 (99) 94 11/01/20 16:00 106 11/01/20 15:17 98.1 98 11/01/20 14:17 98.5 99 11/01/20 13:47 98.2 96 11/01/20 13:17 97.6 98 11/01/20 12:49 Nasal Cannula 1.0 11/01/20 12:47 98.1 95 11/01/20 12:00 104 11/01/20 12:00 98.1 102 18 172/86 (114) 95 Intake and Output 11/01/20 11/02/20 19:00 07:00 Intake Total 475 ml 1391.55716 ml Output Total 500 ml Balance -25 ml 1391.05441 ml Intake Oral 400 ml 300 ml IV Total 75 ml 1091.14548 ml Output Urine Total 500 ml # Bowel Movements 2 3 Objective 11/02 saturating at 95% on 3L NC General Appearance: WD/WN, no acute distress HEENT: atraumatic Respiratory: lungs clear Cardiovascular: regular rhythm, tachycardia Abdomen: soft, non tender Microbiology Date/Time Source Procedure Growth Status 10/31/20 13:43 Nasopharynx SARS-CoV-2 RdRp Gene Assay - Final Complete Laboratory Tests 11/01/20 13:30: Troponin I 0.328H 11/01/20 18:18: POC Whole Blood Glucose [Pending] 11/01/20 21:25: Troponin I 0.636H 11/02/20 02:00: Troponin I 0.808H, Sodium Level 147H, Potassium Level 3.0L, Chloride Level 115H, Carbon Dioxide Level 18L, Anion Gap 14, Blood Urea Nitrogen 57H, Creatinine 4.0H, Estimat Glomerular Filtration Rate 14.7, Glucose Level 193#H, Uric Acid 8.1H, Calcium Level 7.9L, Phosphorus Level 3.2, Magnesium Level 2.0, Total Bilirubin 0.4, Aspartate Amino Transf (AST/SGOT) 72H, Alanine Aminotransferase (ALT/SGPT) 43, Alkaline Phosphatase 75, Total Creatine Kinase 1838H, Creatine Kinase MB 5.8H, Creatine Kinase MB Relative Index 0.3, Pro-B-Type Natriuretic Peptide 6723H, Total Protein 5.3L, Albumin 1.9L, Globulin 3.4, Albumin/Globulin Ratio 0.6L, Thyroid Stimulating Hormone (TSH) 0.066L, Free Thyroxine 1.67H 11/02/20 02:10: Free Triiodothyronine 2.0L, Thyroid Stimulating Immunoglobulin [Pending], Thyroglobulin Antibody [Pending] Current Medications Medications (Trade) Dose Ordered Sig/Manasa Route PRN Reason Start Time Stop Time Status Last Admin Dose Admin Acetaminophen (Tylenol) 500 mg Q4H PRN ORAL For Pain 11/01/20 01:00 12/01/20 00:59 11/01/20 18:50 Acetaminophen (Tylenol) 650 mg Q4H PRN RECTAL Temp >100.5 11/01/20 21:30 12/01/20 21:29 Allopurinol (Zyloprim) 200 mg DAILY ORAL 11/01/20 16:00 12/01/20 15:59 11/02/20 09:34 Amlodipine Besylate (Norvasc) 10 mg DAILY ORAL 11/02/20 09:00 12/02/20 08:59 11/02/20 09:34 Clonidine HCl (Catapres Tab) 0.1 mg Q4H PRN ORAL bp over 160 syst 10/31/20 17:45 01/29/21 17:44 11/01/20 09:20 Dextrose (Dextrose 50%) 25 ml Q30M PRN IV Hypoglycemia 11/01/20 07:15 01/30/21 07:14 Dextrose (Dextrose 50%) 50 ml Q30M PRN IV Hypoglycemia 11/01/20 07:15 01/30/21 07:14 Diltiazem HCl 125 mg/Sodium Chloride 125 ml @ 10 mls/hr Q24H IVPB 11/01/20 18:36 11/02/20 18:36 11/01/20 19:23 Docusate Sodium (Colace) 100 mg TWICE A DAY ORAL 10/31/20 18:00 11/30/20 17:59 11/02/20 09:33 Insulin Aspart (NovoLOG) BEFORE MEALS AND HS SUBQ 11/01/20 11:30 01/30/21 11:29 11/02/20 06:56 Insulin Aspart (NovoLOG) 8 units NOVOTIAC SUBQ 11/01/20 11:50 01/30/21 11:49 11/02/20 06:56 Insulin Detemir (Levemir) 24 units DAILY SUBQ 11/01/20 09:00 01/30/21 08:59 11/02/20 09:46 Metoprolol Tartrate (Lopressor) 50 mg Q12HR ORAL 11/01/20 21:00 01/30/21 20:59 11/02/20 09:33 Pantoprazole (Protonix) 40 mg BID ORAL 10/31/20 18:00 11/30/20 17:44 11/02/20 09:34 Sodium Chloride 1,000 ml @ 75 mls/hr [id number] IV 10/31/20 17:45 11/30/20 17:44 11/02/20 09:45 Assessment/Plan Assessment/Plan 1. Non-ST elevation myocardial infarction. - cardiology following 2. Diabetic ketoacidosis - seen by endocrinology - continue fluids - insulin 3. Atrial flutter with rapid ventricular response. - Continue metoprolol 50 mg b.i.d. 4. COVID positive pneumonia. - Decadron - Remdesiver per ID - Supplemental O2 5. Renal failure with creatinine of 3.5. 6. Accelerated hypertension. 7. Hyperthyroidism - Dr. Tamez following DVT ppx - Lovenox The care for this patient was discussed with my supervising physician Time spent for this case was approximately 31 minutes Singh Buchanan Nov 02, 2020 10:49
--- NOTE | 2020-11-02 10:54 | NUR ---
Supervisor Heat TreatingBarman SI: DKA, Atrial flutter with RVR, COVID-19, NSTEMI, ARF T-99 (ax), HR 106, RR 20, BP 159/72, O2 sat 97% WBC 13.3, Troponin 0.808, Glucose 193, TSH, .066, Free T4 1.67, Free T3 2.0, NA+ 147, K+ 3.0 BUN 57, creatinine 4.0 IS: Cardizem IV per protocol Dexamethasone IV NS @75cc/hr Step Down Status
--- NOTE | 2020-11-02 11:01 | NUR ---
RD ASSESSMENT & RECOMMENDATIONS SEE CARE ACTIVITY FOR COMPLETE ASSESSMENT DAILY ESTIMATED NEEDS: Needs based on DM, pulmonary 68.4kg 25-30 kcals/kg total kcals 1-1.5 g protein/kg 68-102 g total protein 25-30 mL/kg total fluid mLs NUTRITION DIAGNOSIS: Altered nutrition related lab values r/t DKA as evidenced by Uglu 4+ on adm, small acetone detected, BG 1087, A1C 8.1. CURRENT DIET: Renal PO DIET RECOMMENDATIONS: With poor po rec LOW NA/ CCHO MED diet (texture as tolerated) ADDITIONAL RECOMMENDATIONS: 1) Recommend supplement w/ continued poor intake Glucerna TID; Nepro TID w/ elevated K 2) Monitor BG w/ poor po, pt at risk for hypoglycemia w/ insulin regimen 3) Maintain calibrated bed scale wts
[2020-11-02] MEDS: dilTIAZem HCL 125 MG in NS 100 ML IVPB SCH (11:16)
--- NOTE | 2020-11-02 13:00 | Nephrology Progress Note ---
Assessment/Plan Problem List: (1) Renal failure (ARF), acute on chronic (2) DKA (diabetic ketoacidoses) (3) COVID-19 virus infection (4) Rhabdomyolysis Assessment 75-year-old [place] male Covid positive Acute renal failure, most likely superimposed on chronic kidney disease Diabetes mellitus, presents with severe hyperglycemia and DKA History of hypertension Plan November 02: Labs reviewed. Serum creatinine up to 4. In S DU now. On Cardizem drip. Measured creatinine clearance . Patient may lead towards dialysis. Continue to monitor renal parameters. November 01: Renal parameters improving. Blood sugar is improving. Continue to monitor electrolytes renal parameters and urine output. Aim to control blood sugar and blood pressure. Avoid nephrotoxic's. Monitor CPK as it is elevated. Previously: Anand catheter Blood sugar control Slow hydration Monitor renal parameters Kidney ultrasound no hydronephrosis 2D echocardiogram ejection fraction 60 to 65%. Per orders Subjective ROS Limited/Unobtainable: Yes Objective Objective Last 24 Hour Vital Signs Date Time Temp Pulse Resp B/P (MAP) Pulse Ox O2 Delivery O2 Flow Rate FiO2 11/02/20 12:00 104 11/02/20 12:00 98.6 101 21 150/100 (117) 94 11/02/20 11:16 102 147/63 11/02/20 11:00 98.6 94 20 118/60 (79) 94 11/02/20 10:00 102 20 147/63 (91) 97 11/02/20 09:34 106 159/72 11/02/20 09:33 106 159/72 11/02/20 09:00 105 20 160/69 (99) 95 11/02/20 09:00 Nasal Cannula 1.0 11/02/20 09:00 99.1 95 11/02/20 08:00 99.0 106 20 159/72 (101) 95 11/02/20 07:37 102 11/02/20 07:00 99 20 157/88 (111) 95 11/02/20 06:17 99.1 95 11/02/20 06:00 99 20 154/86 (108) 95 11/02/20 05:30 99 18 152/73 (99) 95 11/02/20 05:00 99 18 116/60 (78) 95 11/02/20 04:00 75 11/02/20 04:00 99.1 146 19 123/54 (77) 96 11/02/20 03:00 145 0 90/63 (72) 91 11/02/20 02:17 98.9 97 11/02/20 02:00 127 31 137/99 (112) 93 11/02/20 01:00 178 35 116/79 (91) 97 11/02/20 00:13 180 34 128/63 (84) 11/02/20 00:00 169 32 134/120 (125) 95 11/02/20 00:00 Nasal Cannula 2.0 11/02/20 00:00 131 11/01/20 22:17 99.8 96 11/01/20 21:00 Nasal Cannula 1.0 11/01/20 20:25 167 96/68 11/01/20 20:00 183 11/01/20 19:23 173 137/67 11/01/20 19:20 102.5 11/01/20 19:00 Nasal Cannula 2.0 11/01/20 19:00 175 32 108/66 (80) 94 11/01/20 18:40 Nasal Cannula 2.0 11/01/20 18:40 102.0 173 30 98/60 (73) 96 11/01/20 18:17 98.9 98 11/01/20 17:17 98.5 98 11/01/20 16:23 98 134/91 11/01/20 16:17 97.3 95 11/01/20 16:00 98.7 105 19 138/80 (99) 94 11/01/20 16:00 106 11/01/20 15:17 98.1 98 11/01/20 14:17 98.5 99 11/01/20 13:47 98.2 96 11/01/20 13:17 97.6 98 Intake and Output 11/01/20 11/02/20 19:00 07:00 Intake Total 475 ml 1391.61916 ml Output Total 500 ml Balance -25 ml 1391.66873 ml Intake Oral 400 ml 300 ml IV Total 75 ml 1091.22690 ml Output Urine Total 500 ml # Bowel Movements 2 3 Laboratory Tests 11/01/20 13:30: Troponin I 0.328H 11/01/20 18:18: POC Whole Blood Glucose [Pending] 11/01/20 21:25: Troponin I 0.636H 11/02/20 02:00: Troponin I 0.808H, Sodium Level 147H, Potassium Level 3.0L, Chloride Level 115H, Carbon Dioxide Level 18L, Anion Gap 14, Blood Urea Nitrogen 57H, Creatinine 4.0H, Estimat Glomerular Filtration Rate 14.7, Glucose Level 193#H, Uric Acid 8 .1H, Calcium Level 7.9L, Phosphorus Level 3.2, Magnesium Level 2.0, Total Bilirubin 0.4, Aspartate Amino Transf (AST/SGOT) 72H, Alanine Aminotransferase (ALT/SGPT) 43, Alkaline Phosphatase 75, Total Creatine Kinase 1838H, Creatine Kinase MB 5.8H, Creatine Kinase MB Relative Index 0.3, Pro-B-Type Natriuretic Peptide 6723H, Total Protein 5.3L, Albumin 1.9L, Globulin 3.4, Albumin/Globulin Ratio 0.6L, Thyroid Stimulating Hormone (TSH) 0.066L, Free Thyroxine 1.67H 11/02/20 02:10: Free Triiodothyronine 2.0L, Thyroid Stimulating Immunoglobulin [Pending], Thyroglobulin Antibody [Pending] 11/02/20 12:24: POC Whole Blood Glucose [Pending] Height (Feet): 5 Height (Inches): 5.00 Weight (Pounds): 150 General Appearance: no apparent distress, lethargic EENT: other - On nasal cannula Cardiovascular: tachycardia, arrhythmia Respiratory/Chest: decreased breath sounds Abdomen: distended Garth Buckley MD Nov 02, 2020 13:00
--- NOTE | 2020-11-02 13:32 | Infectious Diseases Prog Note ---
Assessment/Plan Assessment/Plan A; COVID19 pneumonia Hypoxemia Acute renal failure Rhabdomyolysis Diarrhea DKA P; Continue Dexamethasone Subjective ROS Limited/Unobtainable: Yes Constitutional: Denies: fever Gastrointestinal/Abdominal: Reports: diarrhea Neurologic: Reports: confusion, other - on restraint Allergies: Coded Allergies: No Known Allergies (Unverified , 10/31/20) Objective Last 24 Hour Vital Signs Date Time Temp Pulse Resp B/P (MAP) Pulse Ox O2 Delivery O2 Flow Rate FiO2 11/02/20 12:00 104 11/02/20 12:00 98.6 101 21 150/100 (117) 94 11/02/20 11:16 102 147/63 11/02/20 11:00 98.6 94 20 118/60 (79) 94 11/02/20 10:17 99.0 97 11/02/20 10:00 102 20 147/63 (91) 97 11/02/20 09:34 106 159/72 11/02/20 09:33 106 159/72 11/02/20 09:00 105 20 160/69 (99) 95 11/02/20 09:00 Nasal Cannula 1.0 11/02/20 09:00 99.1 95 11/02/20 08:00 99.0 106 20 159/72 (101) 95 11/02/20 07:37 102 11/02/20 07:00 99 20 157/88 (111) 95 11/02/20 06:17 99.1 95 11/02/20 06:00 99 20 154/86 (108) 95 11/02/20 05:30 99 18 152/73 (99) 95 11/02/20 05:00 99 18 116/60 (78) 95 11/02/20 04:00 75 11/02/20 04:00 99.1 146 19 123/54 (77) 96 11/02/20 03:00 145 0 90/63 (72) 91 11/02/20 02:17 98.9 97 11/02/20 02:00 127 31 137/99 (112) 93 11/02/20 01:00 178 35 116/79 (91) 97 11/02/20 00:13 180 34 128/63 (84) 11/02/20 00:00 169 32 134/120 (125) 95 11/02/20 00:00 Nasal Cannula 2.0 11/02/20 00:00 131 11/01/20 22:17 99.8 96 11/01/20 21:00 Nasal Cannula 1.0 11/01/20 20:25 167 96/68 11/01/20 20:00 183 11/01/20 19:23 173 137/67 11/01/20 19:20 102.5 11/01/20 19:00 Nasal Cannula 2.0 11/01/20 19:00 175 32 108/66 (80) 94 11/01/20 18:40 Nasal Cannula 2.0 11/01/20 18:40 102.0 173 30 98/60 (73) 96 11/01/20 18:17 98.9 98 11/01/20 17:17 98.5 98 11/01/20 16:23 98 134/91 11/01/20 16:17 97.3 95 11/01/20 16:00 98.7 105 19 138/80 (99) 94 11/01/20 16:00 106 11/01/20 15:17 98.1 98 11/01/20 14:17 98.5 99 11/01/20 13:47 98.2 96 Height (Feet): 5 Height (Inches): 5.00 Weight (Pounds): 150 HEENT: mucous membranes moist Respiratory/Chest: other - oxygen by nasal cannula Cardiovascular: tachycardia Abdomen: soft, non tender, other - rectal tube Extremities: no edema Neurologic/Psychiatric: alert, disoriented Microbiology Date/Time Source Procedure Growth Status 10/31/20 13:43 Nasopharynx SARS-CoV-2 RdRp Gene Assay - Final Complete Laboratory Tests Test 11/01/20 13:30 11/01/20 18:18 11/01/20 21:25 11/02/20 02:00 Troponin I 0.328 ng/mL (0.000-0.056) 0.636 ng/mL (0.000-0.056) 0.808 ng/mL (0.000-0.056) POC Whole Blood Glucose Pending Sodium Level 147 MMOL/L (136-145) H Potassium Level 3.0 MMOL/L (3.5-5.1) L Chloride Level 115 MMOL/L (98-107) H Carbon Dioxide Level 18 MMOL/L (21-32) L Anion Gap 14 mmol/L (5-15) Blood Urea Nitrogen 57 mg/dL (7-18) H Creatinine 4.0 MG/DL (0.55-1.30) H Estimat Glomerular Filtration Rate 14.7 mL/min (>60) Glucose Level 193 MG/DL (74-106) #H Uric Acid 8.1 MG/DL (2.6-7.2) H Calcium Level 7.9 MG/DL (8.5-10.1) L Phosphorus Level 3.2 MG/DL (2.5-4.9) Magnesium Level 2.0 MG/DL (1.8-2.4) Total Bilirubin 0.4 MG/DL (0.2-1.0) Aspartate Amino Transf (AST/SGOT) 72 U/L (15-37) H Alanine Aminotransferase (ALT/SGPT) 43 U/L (12-78) Alkaline Phosphatase 75 U/L (46-116) Total Creatine Kinase 1838 U/L (26-308) H Creatine Kinase MB 5.8 NG/ML (0.0-3.6) H Creatine Kinase MB Relative Index 0.3 Pro-B-Type Natriuretic Peptide 6723 pg/mL (0-125) H Total Protein 5.3 G/DL (6.4-8.2) L Albumin 1.9 G/DL (3.4-5.0) L Globulin 3.4 g/dL Albumin/Globulin Ratio 0.6 (1.0-2.7) L Thyroid Stimulating Hormone (TSH) 0.066 uiU/mL (0.358-3.740) Free Thyroxine 1.67 NG/DL (0.76-1.46) H Test 11/02/20 02:10 11/02/20 12:24 Free Triiodothyronine 2.0 pg/mL (2.3-4.2) L Thyroid Stimulating Immunoglobulin Pending Thyroglobulin Antibody Pending POC Whole Blood Glucose Pending Current Medications Medications (Trade) Dose Ordered Sig/Manasa Route PRN Reason Start Time Stop Time Status Last Admin Dose Admin Acetaminophen (Tylenol) 500 mg Q4H PRN ORAL For Pain 11/01/20 01:00 12/01/20 00:59 11/01/20 18:50 Acetaminophen (Tylenol) 650 mg Q4H PRN RECTAL Temp >100.5 11/01/20 21:30 12/01/20 21:29 Allopurinol (Zyloprim) 200 mg DAILY ORAL 11/01/20 16:00 12/01/20 15:59 11/02/20 09:34 Amlodipine Besylate (Norvasc) 10 mg DAILY ORAL 11/02/20 09:00 12/02/20 08:59 11/02/20 09:34 Clonidine HCl (Catapres Tab) 0.1 mg Q4H PRN ORAL bp over 160 syst 10/31/20 17:45 01/29/21 17:44 11/01/20 09:20 Dexamethasone Sodium Phosphate (Decadron 10mg/ ml Inj) 6 mg DAILY IV 11/03/20 09:00 11/13/20 08:59 Dextrose (Dextrose 50%) 25 ml Q30M PRN IV Hypoglycemia 11/01/20 07:15 01/30/21 07:14 Dextrose (Dextrose 50%) 50 ml Q30M PRN IV Hypoglycemia 11/01/20 07:15 01/30/21 07:14 Diltiazem HCl 125 mg/Sodium Chloride 125 ml @ 10 mls/hr Q24H IVPB 11/01/20 18:36 11/02/20 18:36 11/02/20 11:16 Docusate Sodium (Colace) 100 mg TWICE A DAY ORAL 10/31/20 18:00 11/30/20 17:59 11/02/20 09:33 Insulin Aspart (NovoLOG) BEFORE MEALS AND HS SUBQ 11/01/20 11:30 01/30/21 11:29 11/02/20 12:28 Insulin Aspart (NovoLOG) 8 units NOVOTIAC SUBQ 11/01/20 11:50 01/30/21 11:49 11/02/20 12:29 Insulin Detemir (Levemir) 24 units DAILY SUBQ 11/01/20 09:00 01/30/21 08:59 11/02/20 09:46 Metoprolol Tartrate (Lopressor) 50 mg Q12HR ORAL 11/01/20 21:00 01/30/21 20:59 11/02/20 09:33 Pantoprazole (Protonix) 40 mg BID ORAL 10/31/20 18:00 11/30/20 17:44 11/02/20 09:34 Sodium Chloride 1,000 ml @ 75 mls/hr [id number] IV 10/31/20 17:45 11/30/20 17:44 11/02/20 09:45 Reji Connelly MD Nov 02, 2020 13:32
--- NOTE | 2020-11-02 14:25 | NUR ---
NURSE NOTES:DR JONES CAME TO SEE THE PT AND ORDER TO D/C CARDIZEM DRIP AND STARTED ON CARDIZEM 60MG P.O QID. ALL NEW ORDERS NOTED AND CARRIED OUT .PT REMAINS ICU STATUS PER M.D ORDERS.WILL CONT TO MONITOR.
--- NOTE | 2020-11-02 15:56 | Cardiac Electrophysiology PN ---
Assessment/Plan Assessment/Plan ASSESSMENT AND PLAN: 1. Non-ST elevation myocardial infarction with troponin of 0.25 and 0.35 in this patient with diabetic ketoacidosis with blood glucose of more than a 1000 on arrival as well as atrial flutter with rapid ventricular response. On metoprolol 50 mg b.i.d. EF 65% 2. Atrial flutter with rapid ventricular response. Despite metoprolol 50 mg b.i.d. Change iv Cardizem to Cardizem 60 po q 6 hr Add Amiodarone 400 po bid and Eliquis 2.5 bid 3. Diabetic ketoacidosis with glucose of more than 1000. 4. Accelerated hypertension. DC Norvasc. Keep on Lopressor 50 bid and Cardizem 60 q 6 5. COVID positive pneumonia. 6. Renal failure with creatinine of 3.5. Further evaluation by Dr. Buckley. It is of note the patient also has total CK of 1900, maybe rhabdomyolysis-induced renal failure. STEPHAN RN and Dr Buckley Subjective Subjective Transferred to ICU for recurrence of atrial flutter with RVR. On Cardizem drip at 10 mg/hr in covid isolation Objective Last 24 Hour Vital Signs Date Time Temp Pulse Resp B/P (MAP) Pulse Ox O2 Delivery O2 Flow Rate FiO2 11/02/20 15:00 93 20 125/67 (86) 92 11/02/20 14:17 98.6 91 11/02/20 14:00 91 20 116/56 (76) 91 11/02/20 13:00 93 20 109/58 (75) 91 11/02/20 12:00 104 11/02/20 12:00 98.6 101 21 150/100 (117) 94 11/02/20 11:16 102 147/63 11/02/20 11:00 98.6 94 20 118/60 (79) 94 11/02/20 10:17 99.0 97 11/02/20 10:00 102 20 147/63 (91) 97 11/02/20 09:34 106 159/72 11/02/20 09:33 106 159/72 11/02/20 09:00 105 20 160/69 (99) 95 11/02/20 09:00 Nasal Cannula 1.0 11/02/20 09:00 99.1 95 11/02/20 08:00 99.0 106 20 159/72 (101) 95 11/02/20 07:37 102 11/02/20 07:00 99 20 157/88 (111) 95 11/02/20 06:17 99.1 95 11/02/20 06:00 99 20 154/86 (108) 95 11/02/20 05:30 99 18 152/73 (99) 95 11/02/20 05:00 99 18 116/60 (78) 95 11/02/20 04:00 75 11/02/20 04:00 99.1 146 19 123/54 (77) 96 11/02/20 03:00 145 0 90/63 (72) 91 11/02/20 02:17 98.9 97 11/02/20 02:00 127 31 137/99 (112) 93 11/02/20 01:00 178 35 116/79 (91) 97 11/02/20 00:13 180 34 128/63 (84) 11/02/20 00:00 169 32 134/120 (125) 95 11/02/20 00:00 Nasal Cannula 2.0 11/02/20 00:00 131 11/01/20 22:17 99.8 96 11/01/20 21:00 Nasal Cannula 1.0 11/01/20 20:25 167 96/68 11/01/20 20:00 183 11/01/20 19:23 173 137/67 11/01/20 19:20 102.5 11/01/20 19:00 Nasal Cannula 2.0 11/01/20 19:00 175 32 108/66 (80) 94 11/01/20 18:40 Nasal Cannula 2.0 11/01/20 18:40 102.0 173 30 98/60 (73) 96 11/01/20 18:17 98.9 98 11/01/20 17:17 98.5 98 11/01/20 16:23 98 134/91 11/01/20 16:17 97.3 95 11/01/20 16:00 98.7 105 19 138/80 (99) 94 11/01/20 16:00 106 Intake and Output 11/01/20 11/02/20 19:00 07:00 Intake Total 475 ml 1391.14202 ml Output Total 500 ml Balance -25 ml 1391.07327 ml Intake Oral 400 ml 300 ml IV Total 75 ml 1091.51866 ml Output Urine Total 500 ml # Bowel Movements 2 3 Laboratory Tests Test 11/01/20 18:18 11/01/20 21:25 11/02/20 02:00 11/02/20 02:10 POC Whole Blood Glucose Pending Troponin I 0.636 ng/mL (0.000-0.056) 0.808 ng/mL (0.000-0.056) Sodium Level 147 MMOL/L (136-145) H Potassium Level 3.0 MMOL/L (3.5-5.1) L Chloride Level 115 MMOL/L (98-107) H Carbon Dioxide Level 18 MMOL/L (21-32) L Anion Gap 14 mmol/L (5-15) Blood Urea Nitrogen 57 mg/dL (7-18) H Creatinine 4.0 MG/DL (0.55-1.30) H Estimat Glomerular Filtration Rate 14.7 mL/min (>60) Glucose Level 193 MG/DL (74-106) #H Uric Acid 8.1 MG/DL (2.6-7.2) H Calcium Level 7.9 MG/DL (8.5-10.1) L Phosphorus Level 3.2 MG/DL (2.5-4.9) Magnesium Level 2.0 MG/DL (1.8-2.4) Total Bilirubin 0.4 MG/DL (0.2-1.0) Aspartate Amino Transf (AST/SGOT) 72 U/L (15-37) H Alanine Aminotransferase (ALT/SGPT) 43 U/L (12-78) Alkaline Phosphatase 75 U/L (46-116) Total Creatine Kinase 1838 U/L (26-308) H Creatine Kinase MB 5.8 NG/ML (0.0-3.6) H Creatine Kinase MB Relative Index 0.3 Pro-B-Type Natriuretic Peptide 6723 pg/mL (0-125) H Total Protein 5.3 G/DL (6.4-8.2) L Albumin 1.9 G/DL (3.4-5.0) L Globulin 3.4 g/dL Albumin/Globulin Ratio 0.6 (1.0-2.7) L Thyroid Stimulating Hormone (TSH) 0.066 uiU/mL (0.358-3.740) Free Thyroxine 1.67 NG/DL (0.76-1.46) H Free Triiodothyronine 2.0 pg/mL (2.3-4.2) L Thyroid Stimulating Immunoglobulin Pending Thyroglobulin Antibody Pending Test 11/02/20 12:24 POC Whole Blood Glucose Pending Microbiology Date/Time Source Procedure Growth Status 10/31/20 13:43 Nasopharynx SARS-CoV-2 RdRp Gene Assay - Final Complete Objective HEAD AND NECK: Shows no JVD. LUNGS: Clear. CARDIOVASCULAR: Shows regular S1 and S2 with no gallop. ABDOMEN: Soft. EXTREMITIES: No pitting edema. Sivakumar Escalante MD Nov 02, 2020 15:56
--- NOTE | 2020-11-02 15:56 | Cardiology Report ---
APPROVED REPORT EKG Measurement Heart [id number] [id number] <Conclusion> Unusual P axis and short NJ, probable junctional tachycardia Nonspecific T wave abnormality Prolonged QT Abnormal ECG
--- NOTE | 2020-11-02 15:58 | Cardiology Report ---
APPROVED REPORT EKG Measurement Heart [id number] <Conclusion> Atrial flutter with variable AV block ST & T wave abnormality, consider inferior ischemia Abnormal ECG
[2020-11-02] MEDS ORDERED: ACTOS15 MG ORAL (17:39)
[2020-11-02] MEDS ORDERED: GLIPIZIDE5 MG ORAL (17:39)
[2020-11-02] MEDS ORDERED: PANTOPRAZOLE SO40 MG ORAL (17:39)
[2020-11-02] MEDS ORDERED: FLOMAX0.4 MG ORAL (17:39)
[2020-11-02] MEDS ORDERED: CARVEDILOL6.25 MG ORAL (17:39)
[2020-11-02] MEDS ORDERED: METOCLOPRAMIDE H5 M1 ORAL (17:39)
[2020-11-02] MEDS ORDERED: NEURONTIN300 MG ORAL (17:39)
[2020-11-02] MEDS ORDERED: ATORVASTATIN CA20 MG ORAL (17:39)
[2020-11-02] MEDS ORDERED: TRADJENTA5 MG PO (17:39)
[2020-11-02] MEDS ORDERED: PROSCAR5 MG ORAL (17:39)
[2020-11-02] MEDS ORDERED: NOVOLIN 70100 UNIT/2 SQ (17:39)
[2020-11-02] MEDS ORDERED: AMLODIPINE BESYL5 MG ORAL (17:39)
[2020-11-02] MEDS ORDERED: VASCEPA1 GM PO (17:39)
[2020-11-02] MEDS ORDERED: MYRBETRIQ25 MG PO (17:39)
[2020-11-02] MEDS ORDERED: VITAMIN D325 MC1 PO (17:39)
[2020-11-02] MEDS ORDERED: DONEPEZIL HCL5 MG ORAL (17:39)
[2020-11-02] MEDS: Eliquis 2.5mg tablet ORAL SCH (17:58)
[2020-11-02] MEDS: dilTIAZem HCl 60mg tab ORAL SCH ×2 (17:59→23:39)
--- NOTE | 2020-11-02 19:15 | NUR ---
HAND-OFF: Report given to .AKHIL PALM.
--- NOTE | 2020-11-02 19:25 | NUR ---
NURSE NOTES: PLACED A TELEPHONE CALL TO Link STEVENSON AND MADE AWARE AND NOTIFIED REGARDING K+ 3.0. RECEIVED A T.O TO GIVE KCL 40MEQ P.O X1 .NEW ORDERS NOTED AND ENDORSED TO AKHIL PALM. WILL CONT TO MONITOR.
--- NOTE | 2020-11-02 19:26 | NUR ---
NURSE NOTES: Report received from ARPITA Valentine. Upon assessment pt is awake, alert, Icelandic speaking. PERRLA. 5-lead EKG shows SR at 99 BPM. BP 120/60. Afebrile. Saturating 92% on 2L O2 via Nasal Canula. RLQ sounds auscultated - Rectal tube noted with black wattery diarrhea. Left hand gauge #22 patent and intact running NS at 75mL/hr. Bilateral soft wrist restraints observed for pulling medical devices and previous fall on 11/01/2020. No distress noted. Bed kept in lowest and locked position. Side rails up x3. Will monitor.
--- NOTE | 2020-11-02 19:30 | NUR ---
NURSE NOTES: No respiratory order observed. Contacted Dr. Stewart. Orders for 2L via N/C. Telephone order read back and will carry out accordingly. aware of pt saturation of 92% on 2L N/C.
--- NOTE | 2020-11-02 19:34 | Psychiatric Progress Note ---
Psychiatry Progress Note Psychiatry Progress Note Medications Current Medications Medications (Trade) Dose Ordered Sig/Manasa Route PRN Reason Start Time Stop Time Status Last Admin Dose Admin Acetaminophen (Tylenol) 500 mg Q4H PRN ORAL For Pain 11/01/20 01:00 12/01/20 00:59 11/01/20 18:50 Acetaminophen (Tylenol) 650 mg Q4H PRN RECTAL Temp >100.5 11/01/20 21:30 12/01/20 21:29 Allopurinol (Zyloprim) 200 mg DAILY ORAL 11/01/20 16:00 12/01/20 15:59 11/02/20 09:34 Apixaban (Eliquis) 2.5 mg BID ORAL 11/02/20 18:00 01/31/21 17:59 11/02/20 17:58 Clonidine HCl (Catapres Tab) 0.1 mg Q4H PRN ORAL bp over 160 syst 10/31/20 17:45 01/29/21 17:44 11/01/20 09:20 Dexamethasone Sodium Phosphate (Decadron 10mg/ ml Inj) 6 mg DAILY IV 11/03/20 09:00 11/13/20 08:59 Dextrose (Dextrose 50%) 25 ml Q30M PRN IV Hypoglycemia 11/01/20 07:15 01/30/21 07:14 Dextrose (Dextrose 50%) 50 ml Q30M PRN IV Hypoglycemia 11/01/20 07:15 01/30/21 07:14 Diltiazem HCl (Cardizem Tab) 60 mg EVERY 6 HOURS ORAL 11/02/20 18:00 12/02/20 17:59 11/02/20 17:59 Docusate Sodium (Colace) 100 mg TWICE A DAY ORAL 10/31/20 18:00 11/30/20 17:59 11/02/20 17:59 Insulin Aspart (NovoLOG) BEFORE MEALS AND HS SUBQ 11/01/20 11:30 01/30/21 11:29 11/02/20 12:28 Insulin Aspart (NovoLOG) 8 units NOVOTIAC SUBQ 11/01/20 11:50 01/30/21 11:49 11/02/20 12:29 Insulin Detemir (Levemir) 24 units DAILY SUBQ 11/01/20 09:00 01/30/21 08:59 11/02/20 09:46 Metoprolol Tartrate (Lopressor) 50 mg Q12HR ORAL 11/01/20 21:00 01/30/21 20:59 11/02/20 09:33 Pantoprazole (Protonix) 40 mg BID ORAL 10/31/20 18:00 11/30/20 17:44 11/02/20 17:58 Potassium Chloride (K-Dur) 40 meq ONCE ORAL 11/02/20 19:30 11/02/20 20:30 Sodium Chloride 1,000 ml @ 75 mls/hr [id number] IV 10/31/20 17:45 11/30/20 17:44 11/02/20 09:45 Neurological/Psychiatric: Reports: anxiety, depressed, emotional problems Allergies: Coded Allergies: No Known Allergies (Unverified , 10/31/20) Objective Data Height (Feet): 5 Height (Inches): 5.00 Weight (Pounds): 150 General Appearance: no apparent distress, lethargic Additional Comments: The patient is confused, disoriented, Macedonian-speaking. Mood is agitated. Affect is flat. Thought process disorganized. Thought content, no suicidal, homicidal ideation. Cognition is impaired. Insight and judgment is impaired. ASSESSMENT: [place] I Acute toxic encephalopathy. Dementia. [place] II Deferred. [place] III COVID-19. [place] IV Low. [place] V 20 PLAN: 1. We will start the patient on soft restraints. 2. Continue to follow and readjust the meds. Assessment/Plan Status: unchanged Brigido Singh MD Nov 02, 2020 19:34
--- NOTE | 2020-11-02 21:24 | General Progress Note ---
Subjective ROS Limited/Unobtainable: Yes Allergies: Coded Allergies: No Known Allergies (Unverified , 10/31/20) Objective Last 24 Hour Vital Signs Date Time Temp Pulse Resp B/P (MAP) Pulse Ox O2 Delivery O2 Flow Rate FiO2 11/02/20 20:44 92 112/67 11/02/20 18:17 98.9 93 11/02/20 18:00 90 20 129/73 (91) 93 11/02/20 17:59 94 159/65 11/02/20 17:00 94 20 159/65 (96) 94 11/02/20 16:00 98.9 91 20 138/76 (96) 92 11/02/20 16:00 95 11/02/20 15:00 93 20 125/67 (86) 92 11/02/20 14:17 98.6 91 11/02/20 14:00 91 20 116/56 (76) 91 11/02/20 13:00 93 20 109/58 (75) 91 11/02/20 12:00 104 11/02/20 12:00 98.6 101 21 150/100 (117) 94 11/02/20 11:16 102 147/63 11/02/20 11:00 98.6 94 20 118/60 (79) 94 11/02/20 10:17 99.0 97 11/02/20 10:00 102 20 147/63 (91) 97 11/02/20 09:34 106 159/72 11/02/20 09:33 106 159/72 11/02/20 09:00 105 20 160/69 (99) 95 11/02/20 09:00 Nasal Cannula 1.0 11/02/20 09:00 99.1 95 11/02/20 08:00 99.0 106 20 159/72 (101) 95 11/02/20 07:37 102 11/02/20 07:00 99 20 157/88 (111) 95 11/02/20 06:17 99.1 95 11/02/20 06:00 99 20 154/86 (108) 95 11/02/20 05:30 99 18 152/73 (99) 95 11/02/20 05:00 99 18 116/60 (78) 95 11/02/20 04:00 75 11/02/20 04:00 99.1 146 19 123/54 (77) 96 11/02/20 03:00 145 0 90/63 (72) 91 11/02/20 02:17 98.9 97 11/02/20 02:00 127 31 137/99 (112) 93 11/02/20 01:00 178 35 116/79 (91) 97 11/02/20 00:13 180 34 128/63 (84) 11/02/20 00:00 169 32 134/120 (125) 95 11/02/20 00:00 Nasal Cannula 2.0 11/02/20 00:00 131 11/01/20 22:17 99.8 96 Intake and Output 11/01/20 11/02/20 19:00 07:00 Intake Total 475 ml 1391.54808 ml Output Total 500 ml Balance -25 ml 1391.92358 ml Intake Oral 400 ml 300 ml IV Total 75 ml 1091.34286 ml Output Urine Total 500 ml # Bowel Movements 2 3 Laboratory Tests 11/01/20 21:25: Troponin I 0.636H 11/02/20 02:00: Troponin I 0.808H, Sodium Level 147H, Potassium Level 3.0L, Chloride Level 115H, Carbon Dioxide Level 18L, Anion Gap 14, Blood Urea Nitrogen 57H, Creatinine 4.0H , Estimat Glomerular Filtration Rate 14.7, Glucose Level 193#H, Uric Acid 8.1H, Calcium Level 7.9L, Phosphorus Level 3.2, Magnesium Level 2.0, Total Bilirubin 0.4, Aspartate Amino Transf (AST/SGOT) 72H, Alanine Aminotransferase (ALT/SGPT) 43, Alkaline Phosphatase 75, Total Creatine Kinase 1838H, Creatine Kinase MB 5.8H, Creatine Kinase MB Relative Index 0.3, Pro-B-Type Natriuretic Peptide 6723H, Total Protein 5.3L, Albumin 1.9L, Globulin 3.4, Albumin/Globulin Ratio 0.6L, Thyroid Stimulating Hormone (TSH) 0.066L, Free Thyroxine 1.67H 11/02/20 02:10: Free Triiodothyronine 2.0L, Thyroid Stimulating Immunoglobulin [Pending], Thyroglobulin Antibody [Pending] 11/02/20 12:24: POC Whole Blood Glucose [Pending] 11/02/20 17:53: POC Whole Blood Glucose 74 11/02/20 20:50: POC Whole Blood Glucose [Pending] Height (Feet): 5 Height (Inches): 5.00 Weight (Pounds): 150 Assessment/Plan Problem List: (1) Renal failure (ARF), acute on chronic ICD Codes: N17.9 - Acute kidney failure, unspecified; N18.9 - Chronic kidney disease, unspecified SNOMED: 024711672 (2) DKA (diabetic ketoacidoses) ICD Codes: E11.10 - Type 2 diabetes mellitus with ketoacidosis without coma SNOMED: 715361898, 65201066 (3) COVID-19 virus infection ICD Codes: U07.1 - COVID-19 SNOMED: 743111246 (4) Rhabdomyolysis ICD Codes: M62.82 - Rhabdomyolysis SNOMED: 969052253 (5) Diabetes mellitus out of control ICD Codes: E11.65 - Type 2 diabetes mellitus with hyperglycemia SNOMED: 96295069, 398836820 (6) Abnormal thyroid blood test ICD Codes: R79.89 - Other specified abnormal findings of blood chemistry SNOMED: 256100083, 677053829252663 (7) NSTEMI (non-ST elevated myocardial infarction) ICD Codes: I21.4 - Non-ST elevation (NSTEMI) myocardial infarction SNOMED: 21048284 Status: progressing, unchanged Assessment/Plan: covid + resp insuff weak dehydration sugar is improving Corey Soto MD Nov 02, 2020 21:24
--- NOTE | 2020-11-02 22:30 | NUR ---
NURSE NOTES: Contacted Dr. Escalante in regards to his notes to add Amiodarone 400mg PO BID order. Verified and added order. Per previous RN, Dr. Serrano gave OK to use condom catheter. No distress noted. BP and HR WNL. No distress noted. Will monitor.
--- NOTE | 2020-11-02 23:10 | NUR ---
NURSE NOTES: Left message for Dr. Soto in regards to ordering Imodium for diarrhea - 150 mL during previous shift. C.diff will also be collected and sent to lab. Pt appears to be sleeping comfortably. Will monitor.
--- NOTE | 2020-11-02 23:28 | NUR ---
NURSE NOTES: Dr. Soto made aware pt on Colace BID, despite 150+ mL of black watery stool. Per , cont to collect C.diff.
[2020-11-03] VITALS (7 sets, daily range): BP systolic 110–142; BP diastolic 50–70
--- NOTE | 2020-11-03 01:15 | NUR ---
NURSE NOTES: Patient heart rate fluctuates between 80's and 120's on equipment monitor phototypesetting. Monitor shows V-tach artifacts, although SR and confirmed with threat monitoring analyst. Leads changed. No distress noted upon observation. Pt continues to ask for ice-water. Will observe.
--- NOTE | 2020-11-03 04:00 | NUR ---
NURSE NOTES: Bladder scanner shows approx 28 mL in bladder. Hematuria noted with large clots in external urinary pouch. Will leave message for Dr. Buckley.
--- NOTE | 2020-11-03 04:27 | NUR ---
NURSE NOTES: Eosinophil Urine/Sodium Urine Random collected and sent to lab.
[2020-11-03] MEDS: NovoLOG Insulin Flexpen SUBQ SCH ×7 (06:04→20:26)
[2020-11-03] MEDS: dilTIAZem HCl 60mg tab ORAL SCH ×4 (06:06→23:59)
--- NOTE | 2020-11-03 06:29 | NUR ---
NURSE NOTES: Left message for MD in regards to hematuria and large blood clots in urine. Awaiting further orders.
[2020-11-03 06:31] LABS: HEMATOCRIT 31.7 % (42.0-52.0); HEMOGLOBIN 11.1 G/DL (14.2-18.0); MEAN CORPUSCULAR VOLUME 89 FL (80-99); PLATELET COUNT 120 K/UL (150-450); RED BLOOD COUNT 3.57 M/UL (4.70-6.10); RED CELL DISTRIBUTION WIDTH 12.9 % (11.6-14.8); WHITE BLOOD COUNT 10.2 K/UL (4.8-10.8)
--- NOTE | 2020-11-03 06:38 | General Progress Note ---
Subjective Allergies: Coded Allergies: No Known Allergies (Unverified , 10/31/20) Subjective events noted interval notes reviewed glucose values stable dexamethasone order noted - to be started today suppressed TSH and elevated free T4 confirmed Item Value Date Time Bedside Blood Glucose 168 mg/dl H 11/03/20 0621 Bedside Blood Glucose 156 mg/dl H 11/02/20 2100 Bedside Blood Glucose 74 mg/dl 11/02/20 1650 Bedside Blood Glucose 240 mg/dl H 11/02/20 1229 Bedside Blood Glucose 245 mg/dl H 11/02/20 0946 Bedside Blood Glucose 245 mg/dl H 11/02/20 0656 Objective Last 24 Hour Vital Signs Date Time Temp Pulse Resp B/P (MAP) Pulse Ox O2 Delivery O2 Flow Rate FiO2 11/03/20 06:06 98 142/79 11/03/20 04:00 98.2 73 22 129/70 (89) 96 11/03/20 04:00 122 11/03/20 00:00 98.8 108 18 121/61 (81) 96 11/03/20 00:00 84 11/02/20 23:39 110 121/62 11/02/20 22:17 98.2 95 11/02/20 21:00 Nasal Cannula 1.0 11/02/20 21:00 92 112/67 (82) 11/02/20 20:44 92 112/67 11/02/20 20:00 98.2 90 22 120/67 (84) 94 11/02/20 19:19 94 11/02/20 18:17 98.9 93 11/02/20 18:00 90 20 129/73 (91) 93 11/02/20 17:59 94 159/65 11/02/20 17:00 94 20 159/65 (96) 94 11/02/20 16:00 98.9 91 20 138/76 (96) 92 11/02/20 16:00 95 11/02/20 15:00 93 20 125/67 (86) 92 11/02/20 14:17 98.6 91 11/02/20 14:00 91 20 116/56 (76) 91 11/02/20 13:00 93 20 109/58 (75) 91 11/02/20 12:00 104 11/02/20 12:00 98.6 101 21 150/100 (117) 94 11/02/20 11:16 102 147/63 11/02/20 11:00 98.6 94 20 118/60 (79) 94 11/02/20 10:17 99.0 97 11/02/20 10:00 102 20 147/63 (91) 97 11/02/20 09:34 106 159/72 11/02/20 09:33 106 159/72 11/02/20 09:00 105 20 160/69 (99) 95 11/02/20 09:00 Nasal Cannula 1.0 11/02/20 09:00 99.1 95 11/02/20 08:00 99.0 106 20 159/72 (101) 95 11/02/20 07:37 102 11/02/20 07:00 99 20 157/88 (111) 95 Intake and Output 11/02/20 11/03/20 19:00 07:00 Intake Total 1650 ml 1476.25 ml Output Total 150 ml 300 ml Balance 1500 ml 1176.25 ml Intake Oral 870 ml 700 ml IV Total 780 ml 776.25 ml Output Urine Total 200 ml Stool Total 150 ml 100 ml # Bowel Movements 2 Laboratory Tests 11/02/20 12:24: POC Whole Blood Glucose [Pending] 11/02/20 17:53: POC Whole Blood Glucose 74 11/02/20 20:50: POC Whole Blood Glucose [Pending] 11/03/20 04:30: Urine Eosinophils [Pending] 11/03/20 05:40: White Blood Count [Pending], Red Blood Count [Pending], Hemoglobin [Pending], Hematocrit [Pending], Mean Corpuscular Volume [Pending], Mean Corpuscular Hemoglobin [Pending], Mean Corpuscular Hemoglobin Concent [Pending], Red Cell Distribution Width [Pending], Platelet Count [Pending], Mean Platelet Volume [Pending], Neutrophils (%) (Auto) [Pending], Lymphocytes (%) (Auto) [Pending], Monocytes (%) (Auto) [Pending], Eosinophils (%) (Auto) [Pending], Basophils (%) (Auto) [Pending], Prothrombin Time [Pending], Prothromb Time International Ratio [Pending], Activated Partial Thromboplast Time [Pending], Sodium Level [Pending], Potassium Level [Pending], Chloride Level [Pending], Carbon Dioxide Level [Pending], Blood Urea Nitrogen [Pending], Creatinine [Pending], Estimat Glomerular Filtration Rate [Pending], Glucose Level [Pending], Uric Acid [Pending], Calcium Level [Pending], Phosphorus Level [Pending], Magnesium Level [Pending], Total Bilirubin [Pending], Aspartate Amino Transf (AST/SGOT) [Pending], Alanine Aminotransferase (ALT/SGPT) [Pending], Alkaline Phosphatase [Pending], Total Creatine Kinase [Pending], Troponin I [Pending], Total Protein [Pending], Albumin [Pending], Globulin [Pending] 11/03/20 06:01: POC Whole Blood Glucose 168H Height (Feet): 5 Height (Inches): 5.00 Weight (Pounds): 150 Objective Current Medications Medications (Trade) Dose Ordered Sig/Manasa Route PRN Reason Start Time Stop Time Status Last Admin Dose Admin Acetaminophen (Tylenol) 500 mg Q4H PRN ORAL For Pain 11/01/20 01:00 12/01/20 00:59 11/01/20 18:50 Acetaminophen (Tylenol) 650 mg Q4H PRN RECTAL Temp >100.5 11/01/20 21:30 12/01/20 21:29 Allopurinol (Zyloprim) 200 mg DAILY ORAL 11/01/20 16:00 12/01/20 15:59 11/02/20 09:34 Amiodarone HCl (Cordarone) 400 mg BID ORAL 11/03/20 09:00 02/01/21 08:59 Apixaban (Eliquis) 2.5 mg BID ORAL 11/02/20 18:00 01/31/21 17:59 11/02/20 17:58 Clonidine HCl (Catapres Tab) 0.1 mg Q4H PRN ORAL bp over 160 syst 10/31/20 17:45 01/29/21 17:44 11/01/20 09:20 Dexamethasone Sodium Phosphate (Decadron 10mg/ ml Inj) 6 mg DAILY IV 11/03/20 09:00 11/13/20 08:59 Dextrose (Dextrose 50%) 25 ml Q30M PRN IV Hypoglycemia 11/01/20 07:15 01/30/21 07:14 Dextrose (Dextrose 50%) 50 ml Q30M PRN IV Hypoglycemia 11/01/20 07:15 01/30/21 07:14 Diltiazem HCl (Cardizem Tab) 60 mg EVERY 6 HOURS ORAL 11/02/20 18:00 12/02/20 17:59 11/03/20 06:06 Docusate Sodium (Colace) 100 mg TWICE A DAY ORAL 10/31/20 18:00 11/30/20 17:59 11/02/20 17:59 Insulin Aspart (NovoLOG) BEFORE MEALS AND HS SUBQ 11/01/20 11:30 01/30/21 11:29 11/03/20 06:05 Insulin Aspart (NovoLOG) 8 units NOVOTIAC SUBQ 11/01/20 11:50 01/30/21 11:49 11/03/20 06:04 Insulin Detemir (Levemir) 24 units DAILY SUBQ 11/01/20 09:00 01/30/21 08:59 11/02/20 09:46 Metoprolol Tartrate (Lopressor) 50 mg Q12HR ORAL 11/01/20 21:00 01/30/21 20:59 11/02/20 20:44 Pantoprazole (Protonix) 40 mg BID ORAL 10/31/20 18:00 11/30/20 17:44 11/02/20 17:58 Sodium Chloride 1,000 ml @ 75 mls/hr [id number] IV 10/31/20 17:45 11/30/20 17:44 11/02/20 22:39 Assessment/Plan Problem List: (1) Abnormal thyroid blood test ICD Codes: R79.89 - Other specified abnormal findings of blood chemistry SNOMED: 212585035, 691134892196981 (2) Diabetes mellitus out of control ICD Codes: E11.65 - Type 2 diabetes mellitus with hyperglycemia SNOMED: 70913068, 352486212 (3) Renal failure (ARF), acute on chronic ICD Codes: N17.9 - Acute kidney failure, unspecified; N18.9 - Chronic kidney disease, unspecified SNOMED: 660766408 (4) COVID-19 virus infection ICD Codes: U07.1 - COVID-19 SNOMED: 346382960 (5) DKA (diabetic ketoacidoses) ICD Codes: E11.10 - Type 2 diabetes mellitus with ketoacidosis without coma SNOMED: 705345799, 69385605 (6) NSTEMI (non-ST elevated myocardial infarction) ICD Codes: I21.4 - Non-ST elevation (NSTEMI) myocardial infarction SNOMED: 06751793 Status: progressing, unchanged Assessment/Plan: continue Levemir 24 units qam increase Novolog 8 to 10 units ac tid + SSI add Januvia 100 mg daily start Tapazole 10 mg daily ATPO, TSI pending Markus Tamez MD Nov 03, 2020 06:38
--- NOTE | 2020-11-03 06:57 | NUR ---
NURSE HAND-OFF REPORT: Important Events on Shift: Hematuria, New order for Amiodarone, HOLD COLACE Patient Status: Diet: Renal-Puree Pending Orders: Pending Results/Labs: Y - Chemistry Pending MD notification: Y-loridian for Hematuria/clots in urine Latest Vital Signs: Temperature 98.2 , Pulse 98 , B/P 142 /79 , Respiratory Rate 22 , O2 SAT 96 , Nasal Cannula, O2 Flow Rate 1.0 . Vital Sign Comment: WNL EKG Rhythm: SR Rhythm change?: N MD Notified?: MD Response: Latest Bhat Fall Score: 60 Fall Risk: High Risk Safety Measures: Call light Within Reach, Bed Alarm Zone 1, Side Rails Side Rails x3, Bed position Low and Locked. Fall Precautions: Yellow Socks Report given to ARPITA Henley.
[2020-11-03 06:59] LABS: CREATINE KINASE 740 U/L (26-308)
--- NOTE | 2020-11-03 07:20 | NUR ---
NURSE NOTES: RECEIVED REPORT FROM [facility] STAFF OF [facility]. RECEIVED PT ON DROPLET PRECAUTION ISOLATION ROOM.PT IS POSITIVE COVI-19. PT ALERT TO NAME ,CONFUSED ABLE TO FALLOWS SIMPLE COMMANDS. DR COOL CAME TO SEE THE PT AND ORDER H.D TODAY AND PLACEMENT OF NON-TUNNEL DIALYSIS CATHETER TODAY. FULL BODY ASSESSMENT DONE. PT REPOSITIONED IN BED ,MADE COMFORTABLE POSSIBLE .PT WITH BILAT SOFT WRIST RESTRAINS TO PREVENT FALL AND INJURIES. PT REMAINS FREE OF INJURIES AT THIS TIME. WILL CONT TO MONITOR.
[2020-11-03 07:35] LABS: ALBUMIN 1.5 G/DL (3.4-5.0); ALBUMIN/GLOBULIN RATIO 0.5 (1.0-2.7); BILIRUBIN,TOTAL 0.5 MG/DL (0.2-1.0); CALCIUM 7.6 MG/DL (8.5-10.1); CREATININE 4.3 MG/DL (0.55-1.30); PHOSPHORUS 3.1 MG/DL (2.5-4.9); POTASSIUM 3.7 MMOL/L (3.5-5.1)
--- NOTE | 2020-11-03 08:30 | NUR ---
NURSE NOTES: PLACED A TELEPHONE CALL TO DR JONES AND MADE AWARE AND NOTIFIED REGARDING PT HAS HEMATURIA AND PLT,S 120. M.D ORDER TO HOLD ELIQUIS 2.5MG AT THIS TIME. HOLD ELIQUIS AT THIS TIME PER M.D ORDERS. WILL CONT TO MONITOR.
[2020-11-03] MEDS: Eliquis 2.5mg tablet ORAL SCH ×2 (09:00→17:39)
[2020-11-03] MEDS: Docusate 100mg cap ORAL SCH ×2 (09:00→17:38)
--- NOTE | 2020-11-03 09:01 | Infectious Diseases Prog Note ---
Assessment/Plan Assessment/Plan A; COVID19 pneumonia Hypoxemia Acute renal failure Rhabdomyolysis Diarrhea, C. difficile negative DKA Hyperthyroidism P; Continue Dexamethasone Subjective ROS Limited/Unobtainable: Yes Constitutional: Denies: fever Gastrointestinal/Abdominal: Reports: diarrhea Neurologic: Reports: confusion, other - on restraint Allergies: Coded Allergies: No Known Allergies (Unverified , 10/31/20) Objective Last 24 Hour Vital Signs Date Time Temp Pulse Resp B/P (MAP) Pulse Ox O2 Delivery O2 Flow Rate FiO2 11/03/20 06:06 98 142/79 11/03/20 04:00 98.2 73 22 129/70 (89) 96 11/03/20 04:00 122 11/03/20 00:00 98.8 108 18 121/61 (81) 96 11/03/20 00:00 84 11/02/20 23:39 110 121/62 11/02/20 22:17 98.2 95 11/02/20 21:00 Nasal Cannula 1.0 11/02/20 21:00 92 112/67 (82) 11/02/20 20:44 92 112/67 11/02/20 20:00 98.2 90 22 120/67 (84) 94 11/02/20 19:19 94 11/02/20 18:17 98.9 93 11/02/20 18:00 90 20 129/73 (91) 93 11/02/20 17:59 94 159/65 11/02/20 17:00 94 20 159/65 (96) 94 11/02/20 16:00 98.9 91 20 138/76 (96) 92 11/02/20 16:00 95 11/02/20 15:00 93 20 125/67 (86) 92 11/02/20 14:17 98.6 91 11/02/20 14:00 91 20 116/56 (76) 91 11/02/20 13:00 93 20 109/58 (75) 91 11/02/20 12:00 104 11/02/20 12:00 98.6 101 21 150/100 (117) 94 11/02/20 11:16 102 147/63 11/02/20 11:00 98.6 94 20 118/60 (79) 94 11/02/20 10:17 99.0 97 11/02/20 10:00 102 20 147/63 (91) 97 11/02/20 09:34 106 159/72 11/02/20 09:33 106 159/72 11/02/20 09:00 105 20 160/69 (99) 95 11/02/20 09:00 Nasal Cannula 1.0 11/02/20 09:00 99.1 95 Height (Feet): 5 Height (Inches): 5.00 Weight (Pounds): 150 HEENT: mucous membranes moist Respiratory/Chest: other - oxygen by nasal cannula Cardiovascular: normal rate Abdomen: soft, non tender, other - rectal tube Extremities: no edema Neurologic/Psychiatric: other - lethargic Microbiology Date/Time Source Procedure Growth Status 11/03/20 00:00 Stool Clostridium difficile Toxin Assay - Final Complete 10/31/20 18:15 Nasal Nares MRSA Culture - Final NO METHICILLIN RESISTANT STAPH AUREUS... Complete 10/31/20 13:43 Nasopharynx SARS-CoV-2 RdRp Gene Assay - Final Complete Laboratory Tests Test 11/02/20 12:24 11/02/20 17:53 11/02/20 20:50 11/03/20 04:30 POC Whole Blood Glucose Pending 74 MG/DL (74-106) Pending Urine Eosinophils Pending Test 11/03/20 05:40 11/03/20 06:01 White Blood Count 10.2 K/UL (4.8-10.8) Red Blood Count 3.57 M/UL (4.70-6.10) L Hemoglobin 11.1 G/DL (14.2-18.0) L Hematocrit 31.7 % (42.0-52.0) L Mean Corpuscular Volume 89 FL (80-99) Mean Corpuscular Hemoglobin 31.2 PG (27.0-31.0) H Mean Corpuscular Hemoglobin Concent 35.1 G/DL (32.0-36.0) Red Cell Distribution Width 12.9 % (11.6-14.8) Platelet Count 120 K/UL (150-450) L Mean Platelet Volume 8.8 FL (6.5-10.1) Neutrophils (%) (Auto) % (45.0-75.0) Lymphocytes (%) (Auto) % (20.0-45.0) Monocytes (%) (Auto) % (1.0-10.0) Eosinophils (%) (Auto) % (0.0-3.0) Basophils (%) (Auto) % (0.0-2.0) Neutrophils % (Manual) Pending Lymphocytes % (Manual) Pending Platelet Estimate Pending Platelet Morphology Pending Prothrombin Time 11.3 SEC (9.30-11.50) Prothromb Time International Ratio 1.0 (0.9-1.1) Activated Partial Thromboplast Time 34 SEC (23-33) H Sodium Level 145 MMOL/L (136-145) Potassium Level 3.7 MMOL/L (3.5-5.1) Chloride Level 115 MMOL/L (98-107) H Carbon Dioxide Level 18 MMOL/L (21-32) L Anion Gap 12 mmol/L (5-15) Blood Urea Nitrogen 71 mg/dL (7-18) H Creatinine 4.3 MG/DL (0.55-1.30) H Estimat Glomerular Filtration Rate 13.5 mL/min (>60) Glucose Level 154 MG/DL (74-106) H Uric Acid 7.2 MG/DL (2.6-7.2) Calcium Level 7.6 MG/DL (8.5-10.1) L Phosphorus Level 3.1 MG/DL (2.5-4.9) Magnesium Level 1.9 MG/DL (1.8-2.4) Total Bilirubin 0.5 MG/DL (0.2-1.0) Aspartate Amino Transf (AST/SGOT) 46 U/L (15-37) H Alanine Aminotransferase (ALT/SGPT) 36 U/L (12-78) Alkaline Phosphatase 59 U/L (46-116) Total Creatine Kinase 740 U/L (26-308) H Troponin I 0.406 ng/mL (0.000-0.056) Total Protein 4.7 G/DL (6.4-8.2) L Albumin 1.5 G/DL (3.4-5.0) L Globulin 3.2 g/dL Albumin/Globulin Ratio 0.5 (1.0-2.7) L POC Whole Blood Glucose 168 MG/DL (74-106) H Current Medications Medications (Trade) Dose Ordered Sig/Manasa Route PRN Reason Start Time Stop Time Status Last Admin Dose Admin Acetaminophen (Tylenol) 500 mg Q4H PRN ORAL For Pain 11/01/20 01:00 12/01/20 00:59 11/01/20 18:50 Acetaminophen (Tylenol) 650 mg Q4H PRN RECTAL Temp >100.5 11/01/20 21:30 12/01/20 21:29 Allopurinol (Zyloprim) 200 mg DAILY ORAL 11/01/20 16:00 12/01/20 15:59 11/02/20 09:34 Amiodarone HCl (Cordarone) 400 mg BID ORAL 11/03/20 09:00 02/01/21 08:59 Apixaban (Eliquis) 2.5 mg BID ORAL 11/02/20 18:00 01/31/21 17:59 11/02/20 17:58 Clonidine HCl (Catapres Tab) 0.1 mg Q4H PRN ORAL bp over 160 syst 10/31/20 17:45 01/29/21 17:44 11/01/20 09:20 Dexamethasone Sodium Phosphate (Decadron 10mg/ ml Inj) 6 mg DAILY IV 11/03/20 09:00 11/13/20 08:59 Dextrose (Dextrose 50%) 25 ml Q30M PRN IV Hypoglycemia 11/01/20 07:15 01/30/21 07:14 Dextrose (Dextrose 50%) 50 ml Q30M PRN IV Hypoglycemia 11/01/20 07:15 01/30/21 07:14 Diltiazem HCl (Cardizem Tab) 60 mg EVERY 6 HOURS ORAL 11/02/20 18:00 12/02/20 17:59 11/03/20 06:06 Docusate Sodium (Colace) 100 mg TWICE A DAY ORAL 10/31/20 18:00 11/30/20 17:59 11/02/20 17:59 Insulin Aspart (NovoLOG) BEFORE MEALS AND HS SUBQ 11/01/20 11:30 01/30/21 11:29 11/03/20 06:05 Insulin Aspart (NovoLOG) 10 units NOVOTIAC SUBQ 11/03/20 11:50 01/30/21 11:49 Insulin Detemir (Levemir) 24 units DAILY SUBQ 11/01/20 09:00 01/30/21 08:59 11/02/20 09:46 Methimazole (Tapazole) 10 mg DAILY ORAL 11/03/20 09:00 12/03/20 08:59 Metoprolol Tartrate (Lopressor) 50 mg Q12HR ORAL 11/01/20 21:00 01/30/21 20:59 11/02/20 20:44 Pantoprazole (Protonix) 40 mg BID ORAL 10/31/20 18:00 11/30/20 17:44 11/02/20 17:58 Sitagliptin Phosphate (Januvia) 100 mg ACBREAKFAST ORAL 11/03/20 07:00 12/03/20 06:59 11/03/20 06:46 Sodium Chloride 1,000 ml @ 75 mls/hr [id number] IV 10/31/20 17:45 11/30/20 17:44 11/02/20 22:39 Reji Connelly MD Nov 03, 2020 09:01
[2020-11-03] MEDS: Metoprolol Tartrate 50mg tab ORAL SCH ×2 (09:55→20:25)
[2020-11-03] MEDS: dexAMETHasone 10mg/ml Inj IV SCH (09:55)
[2020-11-03] MEDS: methIMAzole 10mg tab ORAL SCH (09:56)
[2020-11-03] MEDS: Allopurinol 100mg Tab ORAL SCH (09:56)
[2020-11-03] MEDS: Amiodarone 200mg tab ORAL SCH ×2 (09:57→17:42)
--- NOTE | 2020-11-03 10:07 | Pulmonology Progress Note ---
Subjective ROS Limited/Unobtainable: Yes Interval Events: none major reported per nursing Constitutional: Denies: fever Gastrointestinal/Abdominal: Reports: diarrhea Allergies: Coded Allergies: No Known Allergies (Unverified , 10/31/20) Objective Last 24 Hour Vital Signs Date Time Temp Pulse Resp B/P (MAP) Pulse Ox O2 Delivery O2 Flow Rate FiO2 11/03/20 09:55 78 120/50 11/03/20 08:00 98.6 78 22 120/50 (73) 95 11/03/20 06:06 98 142/79 11/03/20 04:00 98.2 73 22 129/70 (89) 96 11/03/20 04:00 122 11/03/20 00:00 98.8 108 18 121/61 (81) 96 11/03/20 00:00 84 11/02/20 23:39 110 121/62 11/02/20 22:17 98.2 95 11/02/20 21:00 Nasal Cannula 1.0 11/02/20 21:00 92 112/67 (82) 11/02/20 20:44 92 112/67 11/02/20 20:00 98.2 90 22 120/67 (84) 94 11/02/20 19:19 94 11/02/20 18:17 98.9 93 11/02/20 18:00 90 20 129/73 (91) 93 11/02/20 17:59 94 159/65 11/02/20 17:00 94 20 159/65 (96) 94 11/02/20 16:00 98.9 91 20 138/76 (96) 92 11/02/20 16:00 95 11/02/20 15:00 93 20 125/67 (86) 92 11/02/20 14:17 98.6 91 11/02/20 14:00 91 20 116/56 (76) 91 11/02/20 13:00 93 20 109/58 (75) 91 11/02/20 12:00 104 11/02/20 12:00 98.6 101 21 150/100 (117) 94 11/02/20 11:16 102 147/63 11/02/20 11:00 98.6 94 20 118/60 (79) 94 11/02/20 10:17 99.0 97 Intake and Output 11/02/20 11/03/20 19:00 07:00 Intake Total 1650 ml 1551.25 ml Output Total 150 ml 300 ml Balance 1500 ml 1251.25 ml Intake Oral 870 ml 700 ml IV Total 780 ml 851.25 ml Output Urine Total 200 ml Stool Total 150 ml 100 ml # Bowel Movements 2 General Appearance: WD/WN, no acute distress HEENT: atraumatic Respiratory: lungs clear Cardiovascular: regular rhythm, tachycardia Abdomen: soft, non tender Microbiology Date/Time Source Procedure Growth Status 11/03/20 00:00 Stool Clostridium difficile Toxin Assay - Final Complete 10/31/20 18:15 Rectum VRE Culture - Final NO VANCOMYCIN RESISTANT ENTEROCOCCUS ... Complete 10/31/20 18:15 Rectum - Final NO CARBAPENEM-RESISTANT ENTEROBACTERI... Complete 10/31/20 18:15 Nasal Nares MRSA Culture - Final NO METHICILLIN RESISTANT STAPH AUREUS... Complete 10/31/20 13:43 Nasopharynx SARS-CoV-2 RdRp Gene Assay - Final Complete Laboratory Tests 11/02/20 12:24: POC Whole Blood Glucose [Pending] 11/02/20 17:53: POC Whole Blood Glucose 74 11/02/20 20:50: POC Whole Blood Glucose [Pending] 11/03/20 04:30: Urine Eosinophils [Pending] 11/03/20 05:40: White Blood Count 10.2, Red Blood Count 3.57L, Hemoglobin 11.1L, Hematocrit 31.7L, Mean Corpuscular Volume 89, Mean Corpuscular Hemoglobin 31.2H, Mean Corpuscular Hemoglobin Concent 35.1, Red Cell Distribution Width 12.9, Platelet Count 120L, Mean Platelet Volume 8.8, Neutrophils (%) (Auto) , Lymphocytes (%) (Auto) , Monocytes (%) (Auto) , Eosinophils (%) (Auto) , Basophils (%) (Auto) , Neutrophils % (Manual) [Pending], Lymphocytes % (Manual) [Pending], Platelet Estimate [Pending], Platelet Morphology [Pending], Prothrombin Time 11.3, Prothromb Time International Ratio 1.0, Activated Partial Thromboplast Time 34H, Sodium Level 145, Potassium Level 3.7, Chloride Level 115H, Carbon Dioxide Level 18L, Anion Gap 12, Blood Urea Nitrogen 71H, Creatinine 4.3H, Estimat Glomerular Filtration Rate 13.5, Glucose Level 154H, Uric Acid 7.2, Calcium Level 7.6L, Phosphorus Level 3.1, Magnesium Level 1.9, Total Bilirubin 0.5, Aspartate Amino Transf (AST/SGOT) 46H, Alanine Aminotransferase (ALT/SGPT) 36, Alkaline Phosphatase 59, Total Creatine Kinase 740H, Troponin I 0.406H, Total Protein 4.7L, Albumin 1.5L, Globulin 3.2, Albumin/Globulin Ratio 0.5L 11/03/20 06:01: POC Whole Blood Glucose 168H Current Medications Medications (Trade) Dose Ordered Sig/Manasa Route PRN Reason Start Time Stop Time Status Last Admin Dose Admin Acetaminophen (Tylenol) 500 mg Q4H PRN ORAL For Pain 11/01/20 01:00 12/01/20 00:59 11/01/20 18:50 Acetaminophen (Tylenol) 650 mg Q4H PRN RECTAL Temp >100.5 11/01/20 21:30 12/01/20 21:29 Allopurinol (Zyloprim) 200 mg DAILY ORAL 11/01/20 16:00 12/01/20 15:59 11/03/20 09:56 Amiodarone HCl (Cordarone) 400 mg BID ORAL 11/03/20 09:00 02/01/21 08:59 11/03/20 09:57 Apixaban (Eliquis) 2.5 mg BID ORAL 11/02/20 18:00 01/31/21 17:59 11/02/20 17:58 Clonidine HCl (Catapres Tab) 0.1 mg Q4H PRN ORAL bp over 160 syst 10/31/20 17:45 01/29/21 17:44 11/01/20 09:20 Dexamethasone Sodium Phosphate (Decadron 10mg/ ml Inj) 6 mg DAILY IV 11/03/20 09:00 11/13/20 08:59 11/03/20 09:55 Dextrose (Dextrose 50%) 25 ml Q30M PRN IV Hypoglycemia 11/01/20 07:15 01/30/21 07:14 Dextrose (Dextrose 50%) 50 ml Q30M PRN IV Hypoglycemia 11/01/20 07:15 01/30/21 07:14 Diltiazem HCl (Cardizem Tab) 60 mg EVERY 6 HOURS ORAL 11/02/20 18:00 12/02/20 17:59 11/03/20 06:06 Docusate Sodium (Colace) 100 mg TWICE A DAY ORAL 10/31/20 18:00 11/30/20 17:59 11/02/20 17:59 Insulin Aspart (NovoLOG) BEFORE MEALS AND HS SUBQ 11/01/20 11:30 01/30/21 11:29 11/03/20 06:05 Insulin Aspart (NovoLOG) 10 units NOVOTIAC SUBQ 11/03/20 11:50 01/30/21 11:49 Insulin Detemir (Levemir) 24 units DAILY SUBQ 11/01/20 09:00 01/30/21 08:59 11/02/20 09:46 Methimazole (Tapazole) 10 mg DAILY ORAL 11/03/20 09:00 12/03/20 08:59 11/03/20 09:56 Metoprolol Tartrate (Lopressor) 50 mg Q12HR ORAL 11/01/20 21:00 01/30/21 20:59 11/03/20 09:55 Pantoprazole (Protonix) 40 mg BID ORAL 10/31/20 18:00 11/30/20 17:44 11/03/20 09:57 Sitagliptin Phosphate (Januvia) 100 mg ACBREAKFAST ORAL 11/03/20 07:00 12/03/20 06:59 11/03/20 06:46 Sodium Chloride 1,000 ml @ 75 mls/hr [id number] IV 10/31/20 17:45 11/30/20 17:44 11/02/20 22:39 Assessment/Plan Assessment/Plan 1. Non-ST elevation myocardial infarction. - cardiology following 2. Diabetic ketoacidosis - seen by endocrinology - continue fluids - insulin 3. Atrial flutter with rapid ventricular response. - Continue metoprolol 50 mg b.i.d. 4. COVID positive pneumonia. - Decadron - Remdesiver per ID - Supplemental O2 - saturating well on 1L/min O2 5. Renal failure; nephrology following 6. HTN DVT ppx - Petros Ivan MD Nov 03, 2020 10:07
[2020-11-03] MEDS: Levemir Flexpen SUBQ SCH (10:09)
--- NOTE | 2020-11-03 10:42 | Nephrology Progress Note ---
Assessment/Plan Problem List: (1) Renal failure (ARF), acute on chronic (2) DKA (diabetic ketoacidoses) (3) COVID-19 virus infection (4) Rhabdomyolysis (5) Abnormal thyroid blood test (6) NSTEMI (non-ST elevated myocardial infarction) Assessment 75-year-old Chinese male Covid positive Acute renal failure, most likely superimposed on chronic kidney disease Diabetes mellitus, presents with severe hyperglycemia and DKA History of hypertension Plan November 03: Labs reviewed. Serum creatinine rising. Patient has hematuria. Patient on Eliquis. Will arrange for placement of dialysis catheter and attempt to dialyze. Will start Flomax since the patient could not have a Anand catheter. Continue to monitor renal parameters. Continue per consultants. Discussed with RN. Consent for placement of nontunneled catheter ordered. Patient is also on Tapazole for high thyroid hormone. CPK is lowering. November 02: Labs reviewed. Serum creatinine up to 4. In S DU now. On Cardizem drip. Measured creatinine clearance . Patient may lead towards dialysis. Continue to monitor renal parameters. November 01: Renal parameters improving. Blood sugar is improving. Continue to monitor electrolytes renal parameters and urine output. Aim to control blood sugar and blood pressure. Avoid nephrotoxic's. Monitor CPK as it is elevated. Previously: Anand catheter Blood sugar control Slow hydration Monitor renal parameters Kidney ultrasound no hydronephrosis 2D echocardiogram ejection fraction 60 to 65%. Per orders Subjective ROS Limited/Unobtainable: No Constitutional: Reports: malaise, weakness Objective Objective Last 24 Hour Vital Signs Date Time Temp Pulse Resp B/P (MAP) Pulse Ox O2 Delivery O2 Flow Rate FiO2 11/03/20 09:55 78 120/50 11/03/20 09:00 Nasal Cannula 1.0 11/03/20 08:00 87 11/03/20 08:00 98.6 78 22 120/50 (73) 95 11/03/20 06:06 98 142/79 11/03/20 04:00 98.2 73 22 129/70 (89) 96 11/03/20 04:00 122 11/03/20 00:00 98.8 108 18 121/61 (81) 96 11/03/20 00:00 84 11/02/20 23:39 110 121/62 11/02/20 22:17 98.2 95 11/02/20 21:00 Nasal Cannula 1.0 11/02/20 21:00 92 112/67 (82) 11/02/20 20:44 92 112/67 11/02/20 20:00 98.2 90 22 120/67 (84) 94 11/02/20 19:19 94 11/02/20 18:17 98.9 93 11/02/20 18:00 90 20 129/73 (91) 93 11/02/20 17:59 94 159/65 11/02/20 17:00 94 20 159/65 (96) 94 11/02/20 16:00 98.9 91 20 138/76 (96) 92 11/02/20 16:00 95 11/02/20 15:00 93 20 125/67 (86) 92 11/02/20 14:17 98.6 91 11/02/20 14:00 91 20 116/56 (76) 91 11/02/20 13:00 93 20 109/58 (75) 91 11/02/20 12:00 104 11/02/20 12:00 98.6 101 21 150/100 (117) 94 11/02/20 11:16 102 147/63 11/02/20 11:00 98.6 94 20 118/60 (79) 94 Intake and Output 11/02/20 11/03/20 19:00 07:00 Intake Total 1650 ml 1551.25 ml Output Total 150 ml 300 ml Balance 1500 ml 1251.25 ml Intake Oral 870 ml 700 ml IV Total 780 ml 851.25 ml Output Urine Total 200 ml Stool Total 150 ml 100 ml # Bowel Movements 2 Current Medications Medications (Trade) Dose Ordered Sig/Manasa Route PRN Reason Start Time Stop Time Status Last Admin Dose Admin Acetaminophen (Tylenol) 500 mg Q4H PRN ORAL For Pain 11/01/20 01:00 12/01/20 00:59 11/01/20 18:50 Acetaminophen (Tylenol) 650 mg Q4H PRN RECTAL Temp >100.5 11/01/20 21:30 12/01/20 21:29 Allopurinol (Zyloprim) 200 mg DAILY ORAL 11/01/20 16:00 12/01/20 15:59 11/03/20 09:56 Amiodarone HCl (Cordarone) 400 mg BID ORAL 11/03/20 09:00 02/01/21 08:59 11/03/20 09:57 Apixaban (Eliquis) 2.5 mg BID ORAL 11/02/20 18:00 01/31/21 17:59 11/02/20 17:58 Clonidine HCl (Catapres Tab) 0.1 mg Q4H PRN ORAL bp over 160 syst 10/31/20 17:45 01/29/21 17:44 11/01/20 09:20 Dexamethasone Sodium Phosphate (Decadron 10mg/ ml Inj) 6 mg DAILY IV 11/03/20 09:00 11/13/20 08:59 11/03/20 09:55 Dextrose (Dextrose 50%) 25 ml Q30M PRN IV Hypoglycemia 11/01/20 07:15 01/30/21 07:14 Dextrose (Dextrose 50%) 50 ml Q30M PRN IV Hypoglycemia 11/01/20 07:15 01/30/21 07:14 Diltiazem HCl (Cardizem Tab) 60 mg EVERY 6 HOURS ORAL 11/02/20 18:00 12/02/20 17:59 11/03/20 06:06 Docusate Sodium (Colace) 100 mg TWICE A DAY ORAL 10/31/20 18:00 11/30/20 17:59 11/02/20 17:59 Insulin Aspart (NovoLOG) BEFORE MEALS AND HS SUBQ 11/01/20 11:30 01/30/21 11:29 11/03/20 06:05 Insulin Aspart (NovoLOG) 10 units NOVOTIAC SUBQ 11/03/20 11:50 01/30/21 11:49 Insulin Detemir (Levemir) 24 units DAILY SUBQ 11/01/20 09:00 01/30/21 08:59 11/03/20 10:09 Methimazole (Tapazole) 10 mg DAILY ORAL 11/03/20 09:00 12/03/20 08:59 11/03/20 09:56 Metoprolol Tartrate (Lopressor) 50 mg Q12HR ORAL 11/01/20 21:00 01/30/21 20:59 11/03/20 09:55 Pantoprazole (Protonix) 40 mg BID ORAL 10/31/20 18:00 11/30/20 17:44 11/03/20 09:57 Sitagliptin Phosphate (Januvia) 100 mg ACBREAKFAST ORAL 11/03/20 07:00 12/03/20 06:59 11/03/20 06:46 Sodium Chloride 1,000 ml @ 75 mls/hr [id number] IV 10/31/20 17:45 11/30/20 17:44 11/03/20 10:24 Tamsulosin HCl (Flomax) 0.4 mg BID ORAL 11/03/20 10:45 12/03/20 10:44 UNV Laboratory Tests 11/02/20 12:24: POC Whole Blood Glucose [Pending] 11/02/20 17:53: POC Whole Blood Glucose 74 11/02/20 20:50: POC Whole Blood Glucose [Pending] 11/03/20 04:30: Urine Eosinophils None seen 11/03/20 05:40: White Blood Count 10.2, Red Blood Count 3.57L, Hemoglobin 11.1L, Hematocrit 31.7L, Mean Corpuscular Volume 89, Mean Corpuscular Hemoglobin 31.2H, Mean Corpuscular Hemoglobin Concent 35.1, Red Cell Distribution Width 12.9, Platelet Count 120L, Mean Platelet Volume 8.8, Neutrophils (%) (Auto) , Lymphocytes (%) (Auto) , Monocytes (%) (Auto) , Eosinophils (%) (Auto) , Basophils (%) (Auto) , Neutrophils % (Manual) [Pending], Lymphocytes % (Manual) [Pending], Platelet Estimate [Pending], Platelet Morphology [Pending], Prothrombin Time 11.3, Prothromb Time International Ratio 1.0, Activated Partial Thromboplast Time 34H, Sodium Level 145, Potassium Level 3.7, Chloride Level 115H, Carbon Dioxide Level 18L, Anion Gap 12, Blood Urea Nitrogen 71H, Creatinine 4.3H, Estimat Glomerular Filtration Rate 13.5, Glucose Level 154H, Uric Acid 7.2, Calcium Level 7.6L, Phosphorus Level 3.1, Magnesium Level 1.9, Total Bilirubin 0.5, Aspartate Amino Transf (AST/SGOT) 46H, Alanine Aminotransferase (ALT/SGPT) 36, Alkaline Phosphatase 59, Total Creatine Kinase 740H, Troponin I 0.406H, Total Protein 4.7L, Albumin 1.5L, Globulin 3.2, Albumin/Globulin Ratio 0.5L 11/03/20 06:01: POC Whole Blood Glucose 168H Height (Feet): 5 Height (Inches): 5.00 Weight (Pounds): 150 General Appearance: no apparent distress, lethargic, confused Cardiovascular: arrhythmia Respiratory/Chest: decreased breath sounds Abdomen: distended Garth Buckley MD Nov 03, 2020 10:42
--- NOTE | 2020-11-03 11:40 | NUR ---
NURSE NOTES: DR GR PERFORMED [id number] CATHETER NON-TUNNEL PLMT. PT TOLERATED WELL PROCEDURE. DR GR STATED IS READY TO USE. CALL [facility] AND ABLE TO TALK WITH KELSEA DALLAS RH ,SHE WILL CAME TO DO THE H.D PROCEDURE. WILL CONT TO MONITOR.
--- NOTE | 2020-11-03 11:42 | NUR ---
Marketing CoordinatorMedical Staff Director SI: DKA, Atrial flutter with RVR, COVID-19, NSTEMI, ARF T-98.6 (ax), HR 78, RR 22, BP 120/50, O2 sat 95% O2 1L NC WBC 10.2, Troponin 0.406, Glucose 168, BUN 71, creatinine 4.3, TCK 740 inpatient dialysis-HD Cath pending IS: Cardizem gtt Dexamethasone IV QD NS @75cc/hr Tapazole PO QD Eliquis PO BID Flomax PO Step Down Status
--- NOTE | 2020-11-03 12:03 | Operative Note - PDOC ---
Operative Note Operative Note Date of Operation/Procedure: Nov 03, 2020 Pre-op Diagnosis: Renal insufficiency Leukocytosis Covid positive Procedure: Right femoral temporary hemodialysis catheter insertion Post-op Diagnosis: same as pre-op Surgeon: Norberto Steele MD Anesthesia: local Specimen: none Complications: none Condition: stable Estimated Blood Loss: minimal Drains: none Implant(s) used?: No Indications for Procedure 75-year-old male Covid positive currently in the hospital acute renal insufficiency worsening renal insufficiency requiring hemodialysis per nephrology. Patient does not have access for hemodialysis and temporary access indicated recommended and consent obtained from family. Description of Procedure Patient was made comfortable the bedside. The right groin was prepped draped in same surgical fashion. Anatomic landmarks were identified. Local anesthetic was infiltrated. The right femoral vein was cannulated on first stick without complication. Good venous flow noted. Guidewire placed over needle needle removed. Small skin incision made around the guidewire. Dilators were used. A temporal hemodialysis catheter was inserted over the guidewire without complication. Guidewire was removed and discarded. Line sutured in place all ports flushed and aspirated appropriately venous blood. Ports were clean. Dressings were applied patient taught procedure well okay to start dialysis Norberto Richter Nov 03, 2020 12:03
--- NOTE | 2020-11-03 12:03 | General Progress Note ---
Progress Note Progress Note Temporal hemodialysis catheter inserted at bedside. Patient plan for hemodialysis per nephrology. Access indicated recommended consent obtained from family Patient recently on blood thinners will need to monitor closely Norberto Steele Nov 03, 2020 12:03
[2020-11-03] MEDS: Tamsulosin 0.4mg cap ORAL SCH ×2 (12:25→17:42)
--- NOTE | 2020-11-03 14:16 | NUR ---
NURSE NOTES:PT RECEIVING H.D AT THIS TIME. TOLERATING WELL PROCEDURE AT THIS TIME. WILL CONT TO MONITOR.
[2020-11-03] MEDS ORDERED: Heparin Sod 1000 units/ml 10ml INJ SCH (14:45)
--- NOTE | 2020-11-03 16:00 | NUR ---
NURSE NOTES: H.D DONE. OUT PUT 1 LITER. PT TOLERATED WELL THE PROCEDURE. WILL CONT TO MONITOR.
--- NOTE | 2020-11-03 16:18 | Cardiac Electrophysiology PN ---
Assessment/Plan Assessment/Plan 1. Non-ST elevation myocardial infarction with troponin of 0.25 and 0.35 in this patient with diabetic ketoacidosis with blood glucose of more than a 1000 on arrival as well as atrial flutter with rapid ventricular response. On metoprolol 50 mg b.i.d. EF 65% 2. Atrial flutter with rapid ventricular response. On metoprolol 50 mg bid, Cardizem 60 po q 6 hr and Amiodarone 400 po bid Eliquis 2.5 bid DCed for hematuria 3. Diabetic ketoacidosis with glucose of more than 1000. 4. Accelerated hypertension. On Lopressor 50 bid and Cardizem 60 q 6 5. COVID positive pneumonia. 6. Acute Renal failure in the setting of total CK of 1900, maybe rhabdomyolysis-induced renal failure. Now getting his first HD via [facility] by Dr Ina ROTHMAN RN and Dr Buckley Transfer to [facility] Subjective Subjective Had [facility] catheter placement and is getting her first HD in covid isolation. In SR on Amio and metoprolol. Eliquis DCed due to hematuria Objective Last 24 Hour Vital Signs Date Time Temp Pulse Resp B/P (MAP) Pulse Ox O2 Delivery O2 Flow Rate FiO2 11/03/20 12:00 99.3 75 21 142/69 (93) 94 11/03/20 12:00 75 142/69 11/03/20 11:44 79 11/03/20 09:55 78 120/50 11/03/20 09:00 Nasal Cannula 1.0 11/03/20 08:00 87 11/03/20 08:00 98.6 78 22 120/50 (73) 95 11/03/20 06:06 98 142/79 11/03/20 04:00 98.2 73 22 129/70 (89) 96 11/03/20 04:00 122 11/03/20 00:00 98.8 108 18 121/61 (81) 96 11/03/20 00:00 84 11/02/20 23:39 110 121/62 11/02/20 22:17 98.2 95 11/02/20 21:00 Nasal Cannula 1.0 11/02/20 21:00 92 112/67 (82) 11/02/20 20:44 92 112/67 11/02/20 20:00 98.2 90 22 120/67 (84) 94 11/02/20 19:19 94 11/02/20 18:17 98.9 93 11/02/20 18:00 90 20 129/73 (91) 93 11/02/20 17:59 94 159/65 11/02/20 17:00 94 20 159/65 (96) 94 Intake and Output 11/02/20 11/03/20 19:00 07:00 Intake Total 1650 ml 1551.25 ml Output Total 150 ml 300 ml Balance 1500 ml 1251.25 ml Intake Oral 870 ml 700 ml IV Total 780 ml 851.25 ml Output Urine Total 200 ml Stool Total 150 ml 100 ml # Bowel Movements 2 Laboratory Tests Test 11/02/20 17:53 11/02/20 20:50 11/03/20 04:30 11/03/20 05:40 POC Whole Blood Glucose 74 MG/DL (74-106) Pending Urine Eosinophils None seen (NONE SEEN) White Blood Count 10.2 K/UL (4.8-10.8) Red Blood Count 3.57 M/UL (4.70-6.10) L Hemoglobin 11.1 G/DL (14.2-18.0) L Hematocrit 31.7 % (42.0-52.0) L Mean Corpuscular Volume 89 FL (80-99) Mean Corpuscular Hemoglobin 31.2 PG (27.0-31.0) H Mean Corpuscular Hemoglobin Concent 35.1 G/DL (32.0-36.0) Red Cell Distribution Width 12.9 % (11.6-14.8) Platelet Count 120 K/UL (150-450) L Mean Platelet Volume 8.8 FL (6.5-10.1) Neutrophils (%) (Auto) % (45.0-75.0) Lymphocytes (%) (Auto) % (20.0-45.0) Monocytes (%) (Auto) % (1.0-10.0) Eosinophils (%) (Auto) % (0.0-3.0) Basophils (%) (Auto) % (0.0-2.0) Differential Total Cells Counted 100 Neutrophils % (Manual) 89 % (45-75) H Lymphocytes % (Manual) 10 % (20-45) L Monocytes % (Manual) 1 % (1-10) Eosinophils % (Manual) 0 % (0-3) Basophils % (Manual) 0 % (0-2) Band Neutrophils 0 % (0-8) Platelet Estimate Decreased L Platelet Morphology Normal Red Blood Cell Morphology Normal Prothrombin Time 11.3 SEC (9.30-11.50) Prothromb Time International Ratio 1.0 (0.9-1.1) Activated Partial Thromboplast Time 34 SEC (23-33) H Sodium Level 145 MMOL/L (136-145) Potassium Level 3.7 MMOL/L (3.5-5.1) Chloride Level 115 MMOL/L (98-107) H Carbon Dioxide Level 18 MMOL/L (21-32) L Anion Gap 12 mmol/L (5-15) Blood Urea Nitrogen 71 mg/dL (7-18) H Creatinine 4.3 MG/DL (0.55-1.30) H Estimat Glomerular Filtration Rate 13.5 mL/min (>60) Glucose Level 154 MG/DL (74-106) H Uric Acid 7.2 MG/DL (2.6-7.2) Calcium Level 7.6 MG/DL (8.5-10.1) L Phosphorus Level 3.1 MG/DL (2.5-4.9) Magnesium Level 1.9 MG/DL (1.8-2.4) Total Bilirubin 0.5 MG/DL (0.2-1.0) Aspartate Amino Transf (AST/SGOT) 46 U/L (15-37) H Alanine Aminotransferase (ALT/SGPT) 36 U/L (12-78) Alkaline Phosphatase 59 U/L (46-116) Total Creatine Kinase 740 U/L (26-308) H Troponin I 0.406 ng/mL (0.000-0.056) Total Protein 4.7 G/DL (6.4-8.2) L Albumin 1.5 G/DL (3.4-5.0) L Globulin 3.2 g/dL Albumin/Globulin Ratio 0.5 (1.0-2.7) L Hepatitis B Surface Antigen Pending Test 11/03/20 06:01 11/03/20 12:07 POC Whole Blood Glucose 168 MG/DL (74-106) H 176 MG/DL (74-106) H Microbiology Date/Time Source Procedure Growth Status 11/03/20 00:00 Stool Clostridium difficile Toxin Assay - Final Complete 10/31/20 18:15 Rectum VRE Culture - Final NO VANCOMYCIN RESISTANT ENTEROCOCCUS ... Complete 10/31/20 18:15 Rectum - Final NO CARBAPENEM-RESISTANT ENTEROBACTERI... Complete 10/31/20 18:15 Nasal Nares MRSA Culture - Final NO METHICILLIN RESISTANT STAPH AUREUS... Complete Objective HEAD AND NECK: Shows no JVD. LUNGS: Clear. CARDIOVASCULAR: Shows regular S1 and S2 with no gallop. ABDOMEN: Soft. EXTREMITIES: Right groin Yazan. No pitting edema. Sivakumar Escalante MD Nov 03, 2020 16:18
--- NOTE | 2020-11-03 19:06 | NUR ---
HAND-OFF: Report given to [].
--- NOTE | 2020-11-03 19:15 | NUR ---
NURSE NOTES: Received report from ARPITA Nicole. pt is seen lying in bed in semi- chowdhury's position. Pt is alert oriented x 1, confused in restraints for saferty. Pt on Nasal cannula on 2 Lpm. Pt is seen tachypneic, o2 sat- 88- 89%. pt was put on high chowdhury's position, increase oxygen to 4L. pt is mainly yakut speaking, no pain noted. Checked the temp 98.1. BP 110/ 80. Fixed the lunchroom monitor. NC is within normal limits. Pt has condom cath draining pinkish to reddish urine aware. Platelet is 120, MD aware held eliquis. No pain noted. Bed in lowest position, call light within reach. Continue to plan of care.
--- NOTE | 2020-11-03 20:21 | General Progress Note ---
Subjective ROS Limited/Unobtainable: Yes Allergies: Coded Allergies: No Known Allergies (Unverified , 10/31/20) Objective Last 24 Hour Vital Signs Date Time Temp Pulse Resp B/P (MAP) Pulse Ox O2 Delivery O2 Flow Rate FiO2 11/03/20 17:42 74 131/63 11/03/20 16:00 97.7 74 22 131/63 (85) 94 11/03/20 15:36 78 11/03/20 12:00 99.3 75 21 142/69 (93) 94 11/03/20 12:00 75 142/69 11/03/20 11:44 79 11/03/20 09:55 78 120/50 11/03/20 09:00 Nasal Cannula 1.0 11/03/20 08:00 87 11/03/20 08:00 98.6 78 22 120/50 (73) 95 11/03/20 06:06 98 142/79 11/03/20 04:00 98.2 73 22 129/70 (89) 96 11/03/20 04:00 122 11/03/20 00:00 98.8 108 18 121/61 (81) 96 11/03/20 00:00 84 11/02/20 23:39 110 121/62 11/02/20 22:17 98.2 95 11/02/20 21:00 Nasal Cannula 1.0 11/02/20 21:00 92 112/67 (82) 11/02/20 20:44 92 112/67 Intake and Output 11/02/20 11/03/20 19:00 07:00 Intake Total 1650 ml 1551.25 ml Output Total 150 ml 300 ml Balance 1500 ml 1251.25 ml Intake Oral 870 ml 700 ml IV Total 780 ml 851.25 ml Output Urine Total 200 ml Stool Total 150 ml 100 ml # Bowel Movements 2 Laboratory Tests 11/02/20 20:50: POC Whole Blood Glucose [Pending] 11/03/20 04:30: Urine Eosinophils None seen 11/03/20 05:40: White Blood Count 10.2, Red Blood Count 3.57L, Hemoglobin 11.1L, Hematocrit 31.7L, Mean Corpuscular Volume 89, Mean Corpuscular Hemoglobin 31.2H, Mean Corpuscular Hemoglobin Concent 35.1, Red Cell Distribution Width 12.9, Platelet Count 120L, Mean Platelet Volume 8.8, Neutrophils (%) (Auto) , Lymphocytes (%) (Auto) , Monocytes (%) (Auto) , Eosinophils (%) (Auto) , Basophils (%) (Auto) , Differential Total Cells Counted 100, Neutrophils % (Manual) 89H, Lymphocytes % (Manual) 10L, Monocytes % (Manual) 1, Eosinophils % (Manual) 0, Basophils % (Manual) 0, Band Neutrophils 0, Platelet Estimate DecreasedL, Platelet Morph ology Normal, Red Blood Cell Morphology Normal, Prothrombin Time 11.3, Prothromb Time International Ratio 1.0, Activated Partial Thromboplast Time 34H, Sodium Level 145, Potassium Level 3.7, Chloride Level 115H, Carbon Dioxide Level 18L, Anion Gap 12, Blood Urea Nitrogen 71H, Creatinine 4.3H, Estimat Glomerular Filtration Rate 13.5, Glucose Level 154H, Uric Acid 7.2, Calcium Level 7.6L, Phosphorus Level 3.1, Magnesium Level 1.9, Total Bilirubin 0.5, Aspartate Amino Transf (AST/SGOT) 46H, Alanine Aminotransferase (ALT/SGPT) 36, Alkaline Phosphatase 59, Total Creatine Kinase 740H, Troponin I 0.406H, Total Protein 4.7L, Albumin 1.5L, Globulin 3.2, Albumin/Globulin Ratio 0.5L, Hepatitis B Surface Antigen [Pending] 11/03/20 06:01: POC Whole Blood Glucose 168H 11/03/20 12:07: POC Whole Blood Glucose 176H 11/03/20 17:29: POC Whole Blood Glucose [Pending] Height (Feet): 5 Height (Inches): 5.00 Weight (Pounds): 150 Assessment/Plan Problem List: (1) Renal failure (ARF), acute on chronic ICD Codes: N17.9 - Acute kidney failure, unspecified; N18.9 - Chronic kidney disease, unspecified SNOMED: 781192898 (2) DKA (diabetic ketoacidoses) ICD Codes: E11.10 - Type 2 diabetes mellitus with ketoacidosis without coma SNOMED: 208707357, 98162437 (3) COVID-19 virus infection ICD Codes: U07.1 - COVID-19 SNOMED: 481507850 (4) Rhabdomyolysis ICD Codes: M62.82 - Rhabdomyolysis SNOMED: 981843718 (5) Diabetes mellitus out of control ICD Codes: E11.65 - Type 2 diabetes mellitus with hyperglycemia SNOMED: 03638796, 344747382 (6) Abnormal thyroid blood test ICD Codes: R79.89 - Other specified abnormal findings of blood chemistry SNOMED: 609658291, 813253950399828 (7) NSTEMI (non-ST elevated myocardial infarction) ICD Codes: I21.4 - Non-ST elevation (NSTEMI) myocardial infarction SNOMED: 50065054 Status: progressing, unchanged Assessment/Plan: covid + resp insuff weak dehydration sugar is improving reweived chart no fever niddm sugar is improving Corey Soto MD Nov 03, 2020 20:21
--- NOTE | 2020-11-03 21:04 | NUR ---
NURSE NOTES: Pt desat still on NC 4LPM, spoke to Dr. Stewart he ordered to put pt on simple mask 6L/min. Continue to monitor pt.
[2020-11-04] VITALS: BP 97/65
--- NOTE | 2020-11-04 02:12 | NUR ---
NURSE NOTES: Pt is sleeping in bed with simple mask on on 6Lpm. no signs of respiratory distress. o2 sat- 95%. continue to monitor pt.
[2020-11-04 04:00] VITALS: BP_SYST 118; BP_SYST 97; BP_DIAS 65; BP_DIAS 68
[2020-11-04] MEDS: dilTIAZem HCl 60mg tab ORAL SCH ×3 (05:38→17:12)
[2020-11-04] MEDS: NovoLOG Insulin Flexpen SUBQ SCH ×7 (05:45→22:24)
--- NOTE | 2020-11-04 06:05 | NUR ---
NURSE NOTES: Pt is awake with no signs of respiratory distress. Pt is able to swallow and has gag reflex. Alert x 2 with confusion. o2 sat- 100%.
--- NOTE | 2020-11-04 07:00 | NUR ---
NURSE HAND-OFF REPORT: Important Events on Shift: Pt desat to 88%- applied to simple mask to 6LPM, still with hematuria. Patient Status: Guarded Diet: Renal diet puree moist Pending Orders: none Pending Results/Labs: none Pending MD notification: none Latest Vital Signs: Temperature 98.1 , Pulse 78 , B/P 115 /65 , Respiratory Rate 21 , O2 SAT 99 , Nasal Cannula, O2 Flow Rate 6.0 . Vital Sign Comment: WNL EKG Rhythm: Sinus Rhythm Rhythm change?: N MD Notified?: Amari MCQUEEN MD Response: Message left await call Latest Bhat Fall Score: 60 Fall Risk: High Risk Safety Measures: Call light Within Reach, Bed Alarm Zone 1, Side Rails Side Rails x3, Bed position Low and Locked. Fall Precautions: Yellow Socks Report given to [ARPITA Marina].
[2020-11-04 07:13] LABS: HEMATOCRIT 30.4 % (42.0-52.0); HEMOGLOBIN 10.2 G/DL (14.2-18.0); MEAN CORPUSCULAR VOLUME 92 FL (80-99); PLATELET COUNT 122 K/UL (150-450); RED CELL DISTRIBUTION WIDTH 12.5 % (11.6-14.8); WHITE BLOOD COUNT 12.3 K/UL (4.8-10.8)
--- NOTE | 2020-11-04 07:30 | NUR ---
NURSE NOTES: Received report from ARPITA Iqbal.
[2020-11-04 08:00] VITALS: BP 115/57
[2020-11-04] MEDS: Eliquis 2.5mg tablet ORAL SCH ×2 (09:00→18:00)
[2020-11-04 09:20] LABS: ALANINE AMINOTRANSFERASE 39 U/L (12-78); ALBUMIN 1.5 G/DL (3.4-5.0); ALBUMIN/GLOBULIN RATIO 0.5 (1.0-2.7); ALKALINE PHOSPHATASE 65 U/L (46-116); ANION GAP 7 mmol/L (5-15); ASPARTATE AMINO TRANSFERASE 46 U/L (15-37); BILIRUBIN,TOTAL 0.4 MG/DL (0.2-1.0); BLOOD UREA NITROGEN 50 mg/dL (7-18); CALCIUM 7.5 MG/DL (8.5-10.1); CARBON DIOXIDE 29 MMOL/L (21-32); CHLORIDE 110 MMOL/L (98-107); CREATINE KINASE 329 U/L (26-308); CREATININE 3.7 MG/DL (0.55-1.30); PHOSPHORUS 3.2 MG/DL (2.5-4.9); SODIUM 146 MMOL/L (136-145)
[2020-11-04] MEDS: methIMAzole 10mg tab ORAL SCH (09:24)
[2020-11-04] MEDS: Allopurinol 100mg Tab ORAL SCH (09:24)
[2020-11-04] MEDS: dexAMETHasone 10mg/ml Inj IV SCH (09:24)
[2020-11-04] MEDS: Amiodarone 200mg tab ORAL SCH ×2 (09:24→17:13)
[2020-11-04] MEDS: Tamsulosin 0.4mg cap ORAL SCH ×2 (09:25→17:13)
[2020-11-04] MEDS: Metoprolol Tartrate 50mg tab ORAL SCH ×2 (09:25→22:20)
[2020-11-04] MEDS: Docusate 100mg cap ORAL SCH ×2 (09:25→17:11)
[2020-11-04] MEDS: Levemir Flexpen SUBQ SCH (09:43)
--- NOTE | 2020-11-04 10:37 | Nephrology Progress Note ---
Assessment/Plan Problem List: (1) Renal failure (ARF), acute on chronic (2) DKA (diabetic ketoacidoses) (3) COVID-19 virus infection (4) Rhabdomyolysis (5) Abnormal thyroid blood test (6) NSTEMI (non-ST elevated myocardial infarction) Assessment 75-year-old [place] male Covid positive Acute renal failure, most likely superimposed on chronic kidney disease Diabetes mellitus, presents with severe hyperglycemia and DKA History of hypertension Plan November 04: Patient was dialyzed yesterday. 1 L ultrafiltrated. Labs reviewed. Renal parameters stable. Will attempt dialysis again tomorrow. Medication list reviewed. November 03: Labs reviewed. Serum creatinine rising. Patient has hematuria. Patient on Eliquis. Will arrange for placement of dialysis catheter and attempt to dialyze. Will start Flomax since the patient could not have a Anand catheter. Continue to monitor renal parameters. Continue per consultants. Discussed with RN. Consent for placement of nontunneled catheter ordered. Patient is also on Tapazole for high thyroid hormone. CPK is lowering. November 02: Labs reviewed. Serum creatinine up to 4. In S DU now. On Cardizem drip. Measured creatinine clearance . Patient may lead towards dialysis. Continue to monitor renal parameters. November 01: Renal parameters improving. Blood sugar is improving. Continue to monitor electrolytes renal parameters and urine output. Aim to control blood sugar and blood pressure. Avoid nephrotoxic's. Monitor CPK as it is elevated. Previously: Anand catheter Blood sugar control Slow hydration Monitor renal parameters Kidney ultrasound no hydronephrosis 2D echocardiogram ejection fraction 60 to 65%. Per orders Subjective ROS Limited/Unobtainable: No Constitutional: Reports: malaise, weakness Objective Objective Last 24 Hour Vital Signs Date Time Temp Pulse Resp B/P (MAP) Pulse Ox O2 Delivery O2 Flow Rate FiO2 11/04/20 09:25 65 115/52 11/04/20 09:00 Simple Mask 6.0 11/04/20 08:00 97.1 72 17 115/57 (76) 100 72 72 11/04/20 07:49 65 11/04/20 05:38 78 115/65 11/04/20 04:00 98.1 65 21 118/68 (85) 99 11/04/20 04:00 62 11/04/20 04:00 97.7 72 20 97/65 (76) 94 11/04/20 00:00 65 11/04/20 00:00 97.7 72 20 97/65 (76) 94 11/03/20 23:59 67 115/70 11/03/20 21:00 Simple Mask 6.0 11/03/20 20:44 95 Simple Mask 6.0 44 11/03/20 20:25 78 110/60 11/03/20 20:00 98.1 94 30 110/60 (77) 94 11/03/20 20:00 88 11/03/20 19:50 97.7 74 22 131/63 (85) 88 11/03/20 17:42 74 131/63 11/03/20 16:00 97.7 74 22 131/63 (85) 94 11/03/20 15:36 78 11/03/20 12:00 99.3 75 21 142/69 (93) 94 11/03/20 12:00 75 142/69 11/03/20 11:44 79 Intake and Output 11/03/20 11/04/20 19:00 07:00 Intake Total 1325 ml 1075 ml Output Total 1450 ml 70 ml Balance -125 ml 1005 ml Intake Oral 800 ml 250 ml IV Total 525 ml 825 ml Output Urine Total 400 ml 20 ml Stool Total 50 ml 50 ml Hemodialysis UF 1000 ml Current Medications Medications (Trade) Dose Ordered Sig/Manasa Route PRN Reason Start Time Stop Time Status Last Admin Dose Admin Acetaminophen (Tylenol) 500 mg Q4H PRN ORAL For Pain 11/01/20 01:00 12/01/20 00:59 11/01/20 18:50 Acetaminophen (Tylenol) 650 mg Q4H PRN RECTAL Temp >100.5 11/01/20 21:30 12/01/20 21:29 Allopurinol (Zyloprim) 200 mg DAILY ORAL 11/01/20 16:00 12/01/20 15:59 11/04/20 09:24 Amiodarone HCl (Cordarone) 400 mg BID ORAL 11/03/20 09:00 02/01/21 08:59 11/04/20 09:24 Apixaban (Eliquis) 2.5 mg BID ORAL 11/02/20 18:00 01/31/21 17:59 11/02/20 17:58 Chlorhexidine Gluconate (María Elena-Hex 2%) 1 applic DAILY@2000 TOPIC 11/04/20 20:00 02/02/21 19:59 Clonidine HCl (Catapres Tab) 0.1 mg Q4H PRN ORAL bp over 160 syst 10/31/20 17:45 01/29/21 17:44 11/01/20 09:20 Dexamethasone Sodium Phosphate (Decadron 10mg/ ml Inj) 6 mg DAILY IV 11/03/20 09:00 11/13/20 08:59 11/04/20 09:24 Dextrose (Dextrose 50%) 25 ml Q30M PRN IV Hypoglycemia 11/01/20 07:15 01/30/21 07:14 Dextrose (Dextrose 50%) 50 ml Q30M PRN IV Hypoglycemia 11/01/20 07:15 01/30/21 07:14 Diltiazem HCl (Cardizem Tab) 60 mg EVERY 6 HOURS ORAL 11/02/20 18:00 12/02/20 17:59 11/04/20 05:38 Docusate Sodium (Colace) 100 mg TWICE A DAY ORAL 10/31/20 18:00 11/30/20 17:59 11/04/20 09:25 Insulin Aspart (NovoLOG) BEFORE MEALS AND HS SUBQ 11/01/20 11:30 01/30/21 11:29 11/03/20 20:26 Insulin Aspart (NovoLOG) 10 units NOVOTIAC SUBQ 11/03/20 11:50 01/30/21 11:49 11/03/20 18:06 Insulin Detemir (Levemir) 24 units DAILY SUBQ 11/01/20 09:00 01/30/21 08:59 11/04/20 09:43 Methimazole (Tapazole) 10 mg DAILY ORAL 11/03/20 09:00 12/03/20 08:59 11/04/20 09:24 Metoprolol Tartrate (Lopressor) 50 mg Q12HR ORAL 11/01/20 21:00 01/30/21 20:59 11/04/20 09:25 Pantoprazole (Protonix) 40 mg BID ORAL 10/31/20 18:00 11/30/20 17:44 11/04/20 09:24 Sitagliptin Phosphate (Januvia) 100 mg ACBREAKFAST ORAL 11/03/20 07:00 12/03/20 06:59 11/04/20 05:45 Sodium Chloride 1,000 ml @ 75 mls/hr [id number] IV 10/31/20 17:45 11/30/20 17:44 11/03/20 19:15 Tamsulosin HCl (Flomax) 0.4 mg BID ORAL 11/03/20 12:00 12/03/20 11:59 11/04/20 09:25 Laboratory Tests 11/03/20 12:07: POC Whole Blood Glucose 176H 11/03/20 17:29: POC Whole Blood Glucose [Pending] 11/04/20 03:04: White Blood Count 12.3H, Red Blood Count 3.30L, Hemoglobin 10.2L, Hematocrit 30.4L, Mean Corpuscular Volume 92, Mean Corpuscular Hemoglobin 30.9, Mean Corpuscular Hemoglobin Concent 33.6, Red Cell Distribution Width 12.5, Platelet Count 122L, Mean Platelet Volume 9.8, Neutrophils (%) (Auto) , Lymphocytes (%) (Auto) , Monocytes (%) (Auto) , Eosinophils (%) (Auto) , Basophils (%) (Auto) , Neutrophils % (Manual) [Pending], Lymphocytes % (Manual) [Pending], Platelet Estimate [Pending], Platelet Morphology [Pending], Sodium Level 146H, Potassium Level 4.0, Chloride Level 110H, Carbon Dioxide Level 29, Anion Gap 7, Blood Urea Nitrogen 50H, Creatinine 3.7H, Estimat Glomerular Filtration Rate 16.1, Glucose Level 76, Uric Acid 4.2, Calcium Level 7.5L, Phosphorus Level 3.2, Magnesium Level 2.0, Total Bilirubin 0.4, Aspartate Amino Transf (AST/SGOT) 46H, Alanine Aminotransferase (ALT/SGPT) 39, Alkaline Phosphatase 65, Total Creatine Kinase 329H, C-Reactive Protein, Quantitative [Pending], Pro-B-Type Natriuretic Peptide 2785H, Total Protein 4.3L, Albumin 1.5L, Globulin 2.8, Albumin/Globulin Ratio 0.5L Height (Feet): 5 Height (Inches): 5.00 Weight (Pounds): 150 General Appearance: lethargic EENT: other - On simple mask oxygen Cardiovascular: normal rate Respiratory/Chest: decreased breath sounds Abdomen: distended Garth Buckley MD Nov 04, 2020 10:36
--- NOTE | 2020-11-04 11:06 | Consultation ---
History of Present Illness General Date patient seen: Nov 04, 2020 Reason for Hospitalization: Abnormal Labs Present Illness HPI This is a 75-year-old male [employer] currently at [facility] was identified to have renal insufficiency requiring hemodialysis a t emporary venous catheter was placed yesterday 11/03/2020 by myself and today identified to have leukocytosis. Surgery called to ensure no acute infectious process from recent catheter placement. Patient seen, patient evaluate, chart reviewed. Allergies: Coded Allergies: No Known Allergies (Unverified , 10/31/20) COVID-19 Screening Contact w/high risk pt: No Experienced COVID-19 symptoms?: No Coronavirus symptoms experienc: Shortness of Breath Medication History Scheduled Amlodipine Besylate* (Amlodipine Besylate*), 5 MG ORAL DAILY, (Reported) Atorvastatin Calcium* (Atorvastatin Calcium*), 20 MG ORAL BEDTIME, (Reported) Carvedilol* (Carvedilol*), 6.25 MG ORAL BID, (Reported) Cholecalciferol (Vitamin D3) (Vitamin D3*), 25 MCG PO DAILY, (Reported) Donepezil Hcl* (Donepezil Hcl*), 5 MG ORAL DAILY, (Reported) Finasteride* (Proscar*), 5 MG ORAL DAILY, (Reported) Gabapentin (Neurontin), 300 MG ORAL BID, (Reported) Glipizide* (Glipizide*), 5 MG ORAL DAILY, (Reported) Icosapent Ethyl (Vascepa), 1 GM PO DAILY, (Reported) Insulin NPH Hum/Reg Insulin Hm (Novolin 70-30 Flexpen), UNIT SQ BID, (Reported) Linagliptin (Tradjenta), 5 MG PO DAILY, (Reported) Metoclopramide Hcl* (Metoclopramide Hcl*), 5 MG ORAL BID, (Reported) Mirabegron (Myrbetriq), 25 MG PO DAILY, (Reported) Pantoprazole* (Pantoprazole*), 40 MG ORAL DAILY, (Reported) Pioglitazone Hcl* (Actos*), 15 MG ORAL DAILY, (Reported) Tamsulosin HCl (Flomax), 0.4 MG ORAL DAILY, (Reported) Patient History Limited by: medical condition History Provided By: Medical Record, PMD Healthcare decision maker Resuscitation status Advanced Directive on File Past Medical/Surgical History Past Medical/Surgical History: (1) DKA (diabetic ketoacidoses) (2) Renal failure (ARF), acute on chronic (3) COVID-19 virus infection (4) Rhabdomyolysis (5) Diabetes mellitus out of control (6) Abnormal thyroid blood test (7) NSTEMI (non-ST elevated myocardial infarction) Review of Systems Review of Symptoms General ROS: no weight loss or fever Psychological ROS: no depression or mood changes, no memory loss Ophthalmic ROS: no visual changes or eye irritation ENT ROS: no nasal congestion, hearing loss, dizziness Allergy and Immunology ROS: no allergic symptoms or urticaria Hematological and Lymphatic ROS: no swollen glands, unusual bleeding or bruising Endocrine ROS: no polyuria, polydipsia, weight changes, temperature intolerance Respiratory ROS: no cough, shortness of breath, or wheezing Cardiovascular ROS: no chest pain or dyspnea on exertion Gastrointestinal ROS: denies abdominal pain, bright red blood in stool. Musculoskeletal ROS: no myalgias or arthralgias Neurological ROS: no TIA or stroke symptoms Dermatological ROS: no new or changing skin lesions, rashes or pruritis limited Physical Exam Physical Exam General appearance: alert, no distress, appears stated age Head: Normocephalic, without obvious abnormality, atraumatic Eyes: conjunctivae/corneas clear. PERRL, EOM's intact. Fundi benign Throat: Lips, mucosa, and tongue normal. Teeth and gums normal Neck: supple, symmetrical, trachea midline, no adenopathy, thyroid: not enlarged, symmetric, no tenderness/mass/nodules, no carotid bruit and no JVD Lungs: clear to auscultation bilaterally Heart: regular rate and rhythm, S1, S2 normal, no murmur, click, rub or gallop Abdomen: soft, non-tender. Bowel sounds normal. No masses, no organomegaly Extremities: extremities normal, atraumatic, no cyanosis or edema Pulses: 2+ and symmetric Skin: Skin color, texture, turgor normal. No rashes or lesions Neurologic: Grossly normal Last 24 Hour Vital Signs Date Time Temp Pulse Resp B/P (MAP) Pulse Ox O2 Delivery O2 Flow Rate FiO2 11/04/20 09:25 65 115/52 11/04/20 09:00 Simple Mask 6.0 11/04/20 08:00 97.1 72 17 115/57 (76) 100 72 72 11/04/20 07:49 65 1/8/21 05:38 78 115/65 11/04/20 04:00 98.1 65 21 118/68 (85) 99 11/04/20 04:00 62 11/04/20 04:00 97.7 72 20 97/65 (76) 94 11/04/20 00:00 65 11/04/20 00:00 97.7 72 20 97/65 (76) 94 11/03/20 23:59 67 115/70 11/03/20 21:00 Simple Mask 6.0 11/03/20 20:44 95 Simple Mask 6.0 44 11/03/20 20:25 78 110/60 11/03/20 20:00 98.1 94 30 110/60 (77) 94 11/03/20 20:00 88 11/03/20 19:50 97.7 74 22 131/63 (85) 88 11/03/20 17:42 74 131/63 11/03/20 16:00 97.7 74 22 131/63 (85) 94 11/03/20 15:36 78 11/03/20 12:00 99.3 75 21 142/69 (93) 94 11/03/20 12:00 75 142/69 11/03/20 11:44 79 Intake and Output 11/03/20 11/04/20 19:00 07:00 Intake Total 1325 ml 1075 ml Output Total 1450 ml 70 ml Balance -125 ml 1005 ml Intake Oral 800 ml 250 ml IV Total 525 ml 825 ml Output Urine Total 400 ml 20 ml Stool Total 50 ml 50 ml Hemodialysis UF 1000 ml Laboratory Tests Test 11/03/20 12:07 11/03/20 17:29 11/04/20 03:04 POC Whole Blood Glucose 176 MG/DL (74-106) H Pending White Blood Count 12.3 K/UL (4.8-10.8) H Red Blood Count 3.30 M/UL (4.70-6.10) L Hemoglobin 10.2 G/DL (14.2-18.0) L Hematocrit 30.4 % (42.0-52.0) L Mean Corpuscular Volume 92 FL (80-99) Mean Corpuscular Hemoglobin 30.9 PG (27.0-31.0) Mean Corpuscular Hemoglobin Concent 33.6 G/DL (32.0-36.0) Red Cell Distribution Width 12.5 % (11.6-14.8) Platelet Count 122 K/UL (150-450) L Mean Platelet Volume 9.8 FL (6.5-10.1) Neutrophils (%) (Auto) % (45.0-75.0) Lymphocytes (%) (Auto) % (20.0-45.0) Monocytes (%) (Auto) % (1.0-10.0) Eosinophils (%) (Auto) % (0.0-3.0) Basophils (%) (Auto) % (0.0-2.0) Differential Total Cells Counted 100 Neutrophils % (Manual) 92 % (45-75) H Lymphocytes % (Manual) 2 % (20-45) L Monocytes % (Manual) 6 % (1-10) Eosinophils % (Manual) 0 % (0-3) Basophils % (Manual) 0 % (0-2) Band Neutrophils 0 % (0-8) Platelet Estimate Decreased L Platelet Morphology Normal Sodium Level 146 MMOL/L (136-145) H Potassium Level 4.0 MMOL/L (3.5-5.1) Chloride Level 110 MMOL/L (98-107) H Carbon Dioxide Level 29 MMOL/L (21-32) Anion Gap 7 mmol/L (5-15) Blood Urea Nitrogen 50 mg/dL (7-18) H Creatinine 3.7 MG/DL (0.55-1.30) H Estimat Glomerular Filtration Rate 16.1 mL/min (>60) Glucose Level 76 MG/DL (74-106) Uric Acid 4.2 MG/DL (2.6-7.2) Calcium Level 7.5 MG/DL (8.5-10.1) L Phosphorus Level 3.2 MG/DL (2.5-4.9) Magnesium Level 2.0 MG/DL (1.8-2.4) Total Bilirubin 0.4 MG/DL (0.2-1.0) Aspartate Amino Transf (AST/SGOT) 46 U/L (15-37) H Alanine Aminotransferase (ALT/SGPT) 39 U/L (12-78) Alkaline Phosphatase 65 U/L (46-116) Total Creatine Kinase 329 U/L (26-308) H C-Reactive Protein, Quantitative Pending Pro-B-Type Natriuretic Peptide 2785 pg/mL (0-125) H Total Protein 4.3 G/DL (6.4-8.2) L Albumin 1.5 G/DL (3.4-5.0) L Globulin 2.8 g/dL Albumin/Globulin Ratio 0.5 (1.0-2.7) L Height (Feet): 5 Height (Inches): 5.00 Weight (Pounds): 150 Medications Current Medications Medications (Trade) Dose Ordered Sig/Manasa Route PRN Reason Start Time Stop Time Status Last Admin Dose Admin Acetaminophen (Tylenol) 500 mg Q4H PRN ORAL For Pain 11/01/20 01:00 12/01/20 00:59 11/01/20 18:50 Acetaminophen (Tylenol) 650 mg Q4H PRN RECTAL Temp >100.5 11/01/20 21:30 12/01/20 21:29 Allopurinol (Zyloprim) 200 mg DAILY ORAL 11/01/20 16:00 12/01/20 15:59 11/04/20 09:24 Amiodarone HCl (Cordarone) 400 mg BID ORAL 11/03/20 09:00 02/01/21 08:59 11/04/20 09:24 Apixaban (Eliquis) 2.5 mg BID ORAL 11/02/20 18:00 01/31/21 17:59 11/02/20 17:58 Chlorhexidine Gluconate (María Elena-Hex 2%) 1 applic DAILY@2000 TOPIC 11/04/20 20:00 02/02/21 19:59 Clonidine HCl (Catapres Tab) 0.1 mg Q4H PRN ORAL bp over 160 syst 10/31/20 17:45 01/29/21 17:44 11/01/20 09:20 Dexamethasone Sodium Phosphate (Decadron 10mg/ ml Inj) 6 mg DAILY IV 11/03/20 09:00 11/13/20 08:59 11/04/20 09:24 Dextrose (Dextrose 50%) 25 ml Q30M PRN IV Hypoglycemia 11/01/20 07:15 01/30/21 07:14 Dextrose (Dextrose 50%) 50 ml Q30M PRN IV Hypoglycemia 11/01/20 07:15 01/30/21 07:14 Diltiazem HCl (Cardizem Tab) 60 mg EVERY 6 HOURS ORAL 11/02/20 18:00 12/02/20 17:59 11/04/20 05:38 Docusate Sodium (Colace) 100 mg TWICE A DAY ORAL 10/31/20 18:00 11/30/20 17:59 11/04/20 09:25 Insulin Aspart (NovoLOG) BEFORE MEALS AND HS SUBQ 11/01/20 11:30 01/30/21 11:29 11/03/20 20:26 Insulin Aspart (NovoLOG) 10 units NOVOTIAC SUBQ 11/03/20 11:50 01/30/21 11:49 11/03/20 18:06 Insulin Detemir (Levemir) 24 units DAILY SUBQ 11/01/20 09:00 01/30/21 08:59 11/04/20 09:43 Methimazole (Tapazole) 10 mg DAILY ORAL 11/03/20 09:00 12/03/20 08:59 11/04/20 09:24 Metoprolol Tartrate (Lopressor) 50 mg Q12HR ORAL 11/01/20 21:00 01/30/21 20:59 11/04/20 09:25 Pantoprazole (Protonix) 40 mg BID ORAL 10/31/20 18:00 11/30/20 17:44 11/04/20 09:24 Sitagliptin Phosphate (Januvia) 100 mg ACBREAKFAST ORAL 11/03/20 07:00 12/03/20 06:59 11/04/20 05:45 Sodium Chloride 1,000 ml @ 75 mls/hr [id number] IV 10/31/20 17:45 11/30/20 17:44 11/03/20 19:15 Tamsulosin HCl (Flomax) 0.4 mg BID ORAL 11/03/20 12:00 12/03/20 11:59 11/04/20 09:25 Assessment/Plan Problem List: (1) DKA (diabetic ketoacidoses) ICD Codes: E11.10 - Type 2 diabetes mellitus with ketoacidosis without coma SNOMED: 593507074, 18732944 (2) Renal failure (ARF), acute on chronic ICD Codes: N17.9 - Acute kidney failure, unspecified; N18.9 - Chronic kidney disease, unspecified SNOMED: 573241619 (3) COVID-19 virus infection Assessment & Plan: 75-year-old male Covid positive renal insufficiency recently had temporary dialysis catheter placement develop leukocytosis soon after. Vitals noted. Exam stable. Catheter was evaluated no acute active inflammatory or infectious process identified. Catheter is clean dry intact. The dressings are not saturated. There is no active bleeding identified. There is no signs of active infection. Leukocytosis anterior collated to medications currently given for COVID-19 infection. Will monitor closely to ensure no active development of infection or related to catheter placement. Thank you for let me participate patient's care will follow with recommendations trend leukocytosis ICD Codes: U07.1 - COVID-19 SNOMED: 921335282 (4) Rhabdomyolysis ICD Codes: M62.82 - Rhabdomyolysis SNOMED: 043609854 (5) Diabetes mellitus out of control ICD Codes: E11.65 - Type 2 diabetes mellitus with hyperglycemia SNOMED: 22194805, 750295366 (6) Abnormal thyroid blood test ICD Codes: R79.89 - Other specified abnormal findings of blood chemistry SNOMED: 474143346, [id number] (7) NSTEMI (non-ST elevated myocardial infarction) ICD Codes: I21.4 - Non-ST elevation (NSTEMI) myocardial infarction SNOMED: 90038235 Norberto Steele Nov 04, 2020 11:05
--- NOTE | 2020-11-04 11:15 | NUR ---
Coding DirectorHardboard Supervisor SI: DKA, Atrial flutter with RVR, COVID-19, NSTEMI, ARF T-97.1 (ax), HR 72, RR 17, BP 115/57, O2 sat 100% O2 simple Mask 6L WBC 12.3, BUN 50, creatinine 3.7, TCK 329 IS: Dexamethasone IV QD NS @75cc/hr Tapazole PO QD Eliquis PO BID Flomax PO Dialysis initiated 11-03-20 Step Down Status
--- NOTE | 2020-11-04 11:44 | Infectious Diseases Prog Note ---
Assessment/Plan Assessment/Plan A; COVID19 pneumonia Hypoxemia Acute renal failure Rhabdomyolysis Diarrhea, C. difficile negative DKA Hyperthyroidism P; Continue Dexamethasone Subjective ROS Limited/Unobtainable: Yes Allergies: Coded Allergies: No Known Allergies (Unverified , 10/31/20) Objective Last 24 Hour Vital Signs Date Time Temp Pulse Resp B/P (MAP) Pulse Ox O2 Delivery O2 Flow Rate FiO2 11/04/20 09:25 65 115/52 11/04/20 09:00 Simple Mask 6.0 11/04/20 08:00 97.1 72 17 115/57 (76) 100 72 72 11/04/20 07:49 65 11/04/20 05:38 78 115/65 11/04/20 04:00 98.1 65 21 118/68 (85) 99 11/04/20 04:00 62 11/04/20 04:00 97.7 72 20 97/65 (76) 94 11/04/20 00:00 65 11/04/20 00:00 97.7 72 20 97/65 (76) 94 11/03/20 23:59 67 115/70 11/03/20 21:00 Simple Mask 6.0 11/03/20 20:44 95 Simple Mask 6.0 44 11/03/20 20:25 78 110/60 11/03/20 20:00 98.1 94 30 110/60 (77) 94 11/03/20 20:00 88 11/03/20 19:50 97.7 74 22 131/63 (85) 88 11/03/20 17:42 74 131/63 11/03/20 16:00 97.7 74 22 131/63 (85) 94 11/03/20 15:36 78 11/03/20 12:00 99.3 75 21 142/69 (93) 94 11/03/20 12:00 75 142/69 11/03/20 11:44 79 Height (Feet): 5 Height (Inches): 5.00 Weight (Pounds): 150 General Appearance: no acute distress HEENT: mucous membranes moist Respiratory/Chest: other - oxygen by mask Cardiovascular: normal rate Abdomen: soft, non tender, other - rectal tube Extremities: no edema Neurologic/Psychiatric: other - sleeping Microbiology Date/Time Source Procedure Growth Status 11/03/20 00:00 Stool Clostridium difficile Toxin Assay - Final Complete Laboratory Tests Test 11/03/20 12:07 11/03/20 17:29 11/04/20 03:04 POC Whole Blood Glucose 176 MG/DL (74-106) H Pending White Blood Count 12.3 K/UL (4.8-10.8) H Red Blood Count 3.30 M/UL (4.70-6.10) L Hemoglobin 10.2 G/DL (14.2-18.0) L Hematocrit 30.4 % (42.0-52.0) L Mean Corpuscular Volume 92 FL (80-99) Mean Corpuscular Hemoglobin 30.9 PG (27.0-31.0) Mean Corpuscular Hemoglobin Concent 33.6 G/DL (32.0-36.0) Red Cell Distribution Width 12.5 % (11.6-14.8) Platelet Count 122 K/UL (150-450) L Mean Platelet Volume 9.8 FL (6.5-10.1) Neutrophils (%) (Auto) % (45.0-75.0) Lymphocytes (%) (Auto) % (20.0-45.0) Monocytes (%) (Auto) % (1.0-10.0) Eosinophils (%) (Auto) % (0.0-3.0) Basophils (%) (Auto) % (0.0-2.0) Differential Total Cells Counted 100 Neutrophils % (Manual) 92 % (45-75) H Lymphocytes % (Manual) 2 % (20-45) L Monocytes % (Manual) 6 % (1-10) Eosinophils % (Manual) 0 % (0-3) Basophils % (Manual) 0 % (0-2) Band Neutrophils 0 % (0-8) Platelet Estimate Decreased L Platelet Morphology Normal Sodium Level 146 MMOL/L (136-145) H Potassium Level 4.0 MMOL/L (3.5-5.1) Chloride Level 110 MMOL/L (98-107) H Carbon Dioxide Level 29 MMOL/L (21-32) Anion Gap 7 mmol/L (5-15) Blood Urea Nitrogen 50 mg/dL (7-18) H Creatinine 3.7 MG/DL (0.55-1.30) H Estimat Glomerular Filtration Rate 16.1 mL/min (>60) Glucose Level 76 MG/DL (74-106) Uric Acid 4.2 MG/DL (2.6-7.2) Calcium Level 7.5 MG/DL (8.5-10.1) L Phosphorus Level 3.2 MG/DL (2.5-4.9) Magnesium Level 2.0 MG/DL (1.8-2.4) Total Bilirubin 0.4 MG/DL (0.2-1.0) Aspartate Amino Transf (AST/SGOT) 46 U/L (15-37) H Alanine Aminotransferase (ALT/SGPT) 39 U/L (12-78) Alkaline Phosphatase 65 U/L (46-116) Total Creatine Kinase 329 U/L (26-308) H C-Reactive Protein, Quantitative Pending Pro-B-Type Natriuretic Peptide 2785 pg/mL (0-125) H Total Protein 4.3 G/DL (6.4-8.2) L Albumin 1.5 G/DL (3.4-5.0) L Globulin 2.8 g/dL Albumin/Globulin Ratio 0.5 (1.0-2.7) L Current Medications Medications (Trade) Dose Ordered Sig/Manasa Route PRN Reason Start Time Stop Time Status Last Admin Dose Admin Acetaminophen (Tylenol) 500 mg Q4H PRN ORAL For Pain 11/01/20 01:00 12/01/20 00:59 11/01/20 18:50 Acetaminophen (Tylenol) 650 mg Q4H PRN RECTAL Temp >100.5 11/01/20 21:30 12/01/20 21:29 Allopurinol (Zyloprim) 200 mg DAILY ORAL 11/01/20 16:00 12/01/20 15:59 11/04/20 09:24 Amiodarone HCl (Cordarone) 400 mg BID ORAL 11/03/20 09:00 02/01/21 08:59 11/04/20 09:24 Apixaban (Eliquis) 2.5 mg BID ORAL 11/02/20 18:00 01/31/21 17:59 11/02/20 17:58 Chlorhexidine Gluconate (María Elena-Hex 2%) 1 applic DAILY@1999 TOPIC 11/04/20 20:00 02/02/21 19:59 Clonidine HCl (Catapres Tab) 0.1 mg Q4H PRN ORAL bp over 160 syst 10/31/20 17:45 01/29/21 17:44 11/01/20 09:20 Dexamethasone Sodium Phosphate (Decadron 10mg/ ml Inj) 6 mg DAILY IV 11/03/20 09:00 11/13/20 08:59 11/04/20 09:24 Dextrose (Dextrose 50%) 25 ml Q30M PRN IV Hypoglycemia 11/01/20 07:15 01/30/21 07:14 Dextrose (Dextrose 50%) 50 ml Q30M PRN IV Hypoglycemia 11/01/20 07:15 01/30/21 07:14 Diltiazem HCl (Cardizem Tab) 60 mg EVERY 6 HOURS ORAL 11/02/20 18:00 12/02/20 17:59 11/04/20 05:38 Docusate Sodium (Colace) 100 mg TWICE A DAY ORAL 10/31/20 18:00 11/30/20 17:59 11/04/20 09:25 Insulin Aspart (NovoLOG) BEFORE MEALS AND HS SUBQ 11/01/20 11:30 01/30/21 11:29 11/03/20 20:26 Insulin Aspart (NovoLOG) 10 units NOVOTIAC SUBQ 11/03/20 11:50 01/30/21 11:49 11/03/20 18:06 Insulin Detemir (Levemir) 24 units DAILY SUBQ 11/01/20 09:00 01/30/21 08:59 11/04/20 09:43 Methimazole (Tapazole) 10 mg DAILY ORAL 11/03/20 09:00 12/03/20 08:59 11/04/20 09:24 Metoprolol Tartrate (Lopressor) 50 mg Q12HR ORAL 11/01/20 21:00 01/30/21 20:59 11/04/20 09:25 Pantoprazole (Protonix) 40 mg BID ORAL 10/31/20 18:00 11/30/20 17:44 11/04/20 09:24 Sitagliptin Phosphate (Januvia) 100 mg ACBREAKFAST ORAL 11/03/20 07:00 12/03/20 06:59 11/04/20 05:45 Sodium Chloride 1,000 ml @ 75 mls/hr [id number] IV 10/31/20 17:45 11/30/20 17:44 11/03/20 19:15 Tamsulosin HCl (Flomax) 0.4 mg BID ORAL 11/03/20 12:00 12/03/20 11:59 11/04/20 09:25 Reji Connelly MD Nov 04, 2020 11:44
[2020-11-04 12:00] VITALS: BP 101/70
--- NOTE | 2020-11-04 13:00 | NUR ---
RESPIRATORY THERAPY NOTES Titrated O2 to 3LPM nasal cannula and is tolerating well with no signs of respiratory distress or sob noted at this time. Spo2 96% HR 72. RN, Salas aware. Will continue to monitor.
--- NOTE | 2020-11-04 14:09 | Pulmonology Progress Note ---
Subjective ROS Limited/Unobtainable: Yes Interval Events: none major reported per nursing Constitutional: Denies: fever Gastrointestinal/Abdominal: Reports: diarrhea Allergies: Coded Allergies: No Known Allergies (Unverified , 10/31/20) Objective Last 24 Hour Vital Signs Date Time Temp Pulse Resp B/P (MAP) Pulse Ox O2 Delivery O2 Flow Rate FiO2 11/04/20 13:11 71 101/90 11/04/20 12:00 97.2 71 21 101/70 (80) 99 71 71 11/04/20 09:25 65 115/52 11/04/20 09:00 Simple Mask 6.0 11/04/20 08:00 97.1 72 17 115/57 (76) 100 72 72 11/04/20 07:49 65 11/04/20 06:40 95 Simple Mask 6.0 44 11/04/20 05:38 78 115/65 11/04/20 04:00 98.1 65 21 118/68 (85) 99 11/04/20 04:00 62 11/04/20 04:00 97.7 72 20 97/65 (76) 94 11/04/20 00:00 65 11/04/20 00:00 97.7 72 20 97/65 (76) 94 11/03/20 23:59 67 115/70 11/03/20 21:00 Simple Mask 6.0 11/03/20 20:44 95 Simple Mask 6.0 44 11/03/20 20:25 78 110/60 11/03/20 20:00 98.1 94 30 110/60 (77) 94 11/03/20 20:00 88 11/03/20 19:50 97.7 74 22 131/63 (85) 88 11/03/20 17:42 74 131/63 11/03/20 16:00 97.7 74 22 131/63 (85) 94 11/03/20 15:36 78 Intake and Output 11/03/20 11/04/20 19:00 07:00 Intake Total 1325 ml 1075 ml Output Total 1450 ml 70 ml Balance -125 ml 1005 ml Intake Oral 800 ml 250 ml IV Total 525 ml 825 ml Output Urine Total 400 ml 20 ml Stool Total 50 ml 50 ml Hemodialysis UF 1000 ml General Appearance: WD/WN, no acute distress HEENT: atraumatic Respiratory: lungs clear Cardiovascular: regular rhythm, tachycardia Abdomen: soft, non tender Microbiology Date/Time Source Procedure Growth Status 11/03/20 00:00 Stool Clostridium difficile Toxin Assay - Final Complete Laboratory Tests 11/03/20 17:29: POC Whole Blood Glucose [Pending] 11/04/20 03:04: White Blood Count 12.3H, Red Blood Count 3.30L, Hemoglobin 10.2L, Hematocrit 30.4L, Mean Corpuscular Volume 92, Mean Corpuscular Hemoglobin 30.9, Mean Corpuscular Hemoglobin Concent 33.6, Red Cell Distribution Width 12.5, Platelet Count 122L, Mean Platelet Volume 9.8, Neutrophils (%) (Auto) , Lymphocytes (%) (Auto) , Monocytes (%) (Auto) , Eosinophils (%) (Auto) , Basophils (%) (Auto) , Differential Total Cells Counted 100, Neutrophils % (Manual) 92H, Lymphocytes % (Manual) 2L, Monocytes % (Manual) 6, Eosinophils % (Manual) 0, Basophils % (Manual) 0, Band Neutrophils 0, Platelet Estimate DecreasedL, Platelet Morphology Normal, Sodium Level 146H, Potassium Level 4.0, Chloride Level 110H, Carbon Dioxide Level 29, Anion Gap 7, Blood Urea Nitrogen 50H, Creatinine 3.7H, Estimat Glomerular Filtration Rate 16.1, Glucose Level 76, Uric Acid 4.2, Calcium Level 7.5L, Phosphorus Level 3.2, Magnesium Level 2.0, Total Bilirubin 0.4, Aspartate Amino Transf (AST/SGOT) 46H, Alanine Aminotransferase (ALT/SGPT) 39, Alkaline Phosphatase 65, Total Creatine Kinase 329H, C-Reactive Protein, Quantitative [Pending], Pro-B-Type Natriuretic Peptide 2785H, Total Protein 4.3L , Albumin 1.5L, Globulin 2.8, Albumin/Globulin Ratio 0.5L 11/04/20 12:55: POC Whole Blood Glucose 153H Current Medications Medications (Trade) Dose Ordered Sig/Manasa Route PRN Reason Start Time Stop Time Status Last Admin Dose Admin Acetaminophen (Tylenol) 500 mg Q4H PRN ORAL For Pain 11/01/20 01:00 12/01/20 00:59 11/01/20 18:50 Acetaminophen (Tylenol) 650 mg Q4H PRN RECTAL Temp >100.5 11/01/20 21:30 12/01/20 21:29 Allopurinol (Zyloprim) 200 mg DAILY ORAL 11/01/20 16:00 12/01/20 15:59 11/04/20 09:24 Amiodarone HCl (Cordarone) 400 mg BID ORAL 11/03/20 09:00 02/01/21 08:59 11/04/20 09:24 Apixaban (Eliquis) 2.5 mg BID ORAL 11/02/20 18:00 01/31/21 17:59 11/02/20 17:58 Chlorhexidine Gluconate (María Elena-Hex 2%) 1 applic DAILY@2000 TOPIC 11/04/20 20:00 02/02/21 19:59 Clonidine HCl (Catapres Tab) 0.1 mg Q4H PRN ORAL bp over 160 syst 10/31/20 17:45 01/29/21 17:44 11/01/20 09:20 Dexamethasone Sodium Phosphate (Decadron 10mg/ ml Inj) 6 mg DAILY IV 11/03/20 09:00 11/13/20 08:59 11/04/20 09:24 Dextrose (Dextrose 50%) 25 ml Q30M PRN IV Hypoglycemia 11/01/20 07:15 01/30/21 07:14 Dextrose (Dextrose 50%) 50 ml Q30M PRN IV Hypoglycemia 11/01/20 07:15 01/30/21 07:14 Diltiazem HCl (Cardizem Tab) 60 mg EVERY 6 HOURS ORAL 11/02/20 18:00 12/02/20 17:59 11/04/20 13:11 Docusate Sodium (Colace) 100 mg TWICE A DAY ORAL 10/31/20 18:00 11/30/20 17:59 11/04/20 09:25 Insulin Aspart (NovoLOG) BEFORE MEALS AND HS SUBQ 11/01/20 11:30 01/30/21 11:29 11/04/20 13:01 Insulin Aspart (NovoLOG) 10 units NOVOTIAC SUBQ 11/03/20 11:50 01/30/21 11:49 11/04/20 13:01 Insulin Detemir (Levemir) 24 units DAILY SUBQ 11/01/20 09:00 01/30/21 08:59 11/04/20 09:43 Methimazole (Tapazole) 10 mg DAILY ORAL 11/03/20 09:00 12/03/20 08:59 11/04/20 09:24 Metoprolol Tartrate (Lopressor) 50 mg Q12HR ORAL 11/01/20 21:00 01/30/21 20:59 11/04/20 09:25 Pantoprazole (Protonix) 40 mg BID ORAL 10/31/20 18:00 11/30/20 17:44 11/04/20 09:24 Sitagliptin Phosphate (Januvia) 100 mg ACBREAKFAST ORAL 11/03/20 07:00 12/03/20 06:59 11/04/20 05:45 Sodium Chloride 1,000 ml @ 75 mls/hr [id number] IV 10/31/20 17:45 11/30/20 17:44 11/03/20 19:15 Tamsulosin HCl (Flomax) 0.4 mg BID ORAL 11/03/20 12:00 12/03/20 11:59 11/04/20 09:25 Assessment/Plan Assessment/Plan 1. Non-ST elevation myocardial infarction. - cardiology following 2. Diabetic ketoacidosis - seen by endocrinology - continue fluids - insulin 3. Atrial flutter with rapid ventricular response. - Continue metoprolol 50 mg b.i.d. 4. COVID positive pneumonia. - Decadron - Remdesiver per ID - Supplemental O2 - saturating well on 6L/min VM; will titrate down to low flow nasal O2; discussed with RN 5. Renal failure; nephrology following 6. HTN DVT ppx - Petros Ivan MD Nov 04, 2020 14:09
--- NOTE | 2020-11-04 15:19 | Cardiac Electrophysiology PN ---
Assessment/Plan Assessment/Plan 1. NSTEMI with troponin of 0.25 and 0.35 in this patient with DKA as well as atrial flutter with rapid ventricular response. On metoprolol 50 mg b.i.d. EF 65% 2. Atrial flutter with rapid ventricular response. On metoprolol 50 mg bid, Cardizem 60 po q 6 hr and Amiodarone 400 po bid Eliquis 2.5 bid still held for hematuria 3. Diabetic ketoacidosis with glucose of more than 1000. 4. Accelerated hypertension. On Lopressor 50 bid and Cardizem 60 q 6 5. COVID positive pneumonia. 6. Acute Renal failure in the setting of total CK of 1900, maybe rhabdomyolysis-induced renal failure. S/P first HD via RFV Yazan by Dr Ina ROTHMAN RN and Dr Buckley Transfer to [facility] Had RFV Yazan catheter placement first HD in covid isolation. In SR on Amio and metoprolol. Eliquis DCed due to hematuria Objective Last 24 Hour Vital Signs Date Time Temp Pulse Resp B/P (MAP) Pulse Ox O2 Delivery O2 Flow Rate FiO2 11/04/20 13:11 71 101/90 11/04/20 12:00 97.2 71 21 101/70 (80) 99 71 71 11/04/20 09:25 65 115/52 11/04/20 09:00 Simple Mask 6.0 11/04/20 08:00 97.1 72 17 115/57 (76) 100 72 72 11/04/20 07:49 65 11/04/20 06:40 95 Simple Mask 6.0 44 11/04/20 05:38 78 115/65 11/04/20 04:00 98.1 65 21 118/68 (85) 99 11/04/20 04:00 62 11/04/20 04:00 97.7 72 20 97/65 (76) 94 11/04/20 00:00 65 11/04/20 00:00 97.7 72 20 97/65 (76) 94 11/03/20 23:59 67 115/70 11/03/20 21:00 Simple Mask 6.0 11/03/20 20:44 95 Simple Mask 6.0 44 11/03/20 20:25 78 110/60 11/03/20 20:00 98.1 94 30 110/60 (77) 94 11/03/20 20:00 88 11/03/20 19:50 97.7 74 22 131/63 (85) 88 11/03/20 17:42 74 131/63 11/03/20 16:00 97.7 74 22 131/63 (85) 94 11/03/20 15:36 78 Intake and Output 11/03/20 11/04/20 19:00 07:00 Intake Total 1325 ml 1075 ml Output Total 1450 ml 70 ml Balance -125 ml 1005 ml Intake Oral 800 ml 250 ml IV Total 525 ml 825 ml Output Urine Total 400 ml 20 ml Stool Total 50 ml 50 ml Hemodialysis UF 1000 ml Laboratory Tests Test 11/03/20 17:29 11/04/20 03:04 11/04/20 12:55 POC Whole Blood Glucose Pending 153 MG/DL (74-106) H White Blood Count 12.3 K/UL (4.8-10.8) H Red Blood Count 3.30 M/UL (4.70-6.10) L Hemoglobin 10.2 G/DL (14.2-18.0) L Hematocrit 30.4 % (42.0-52.0) L Mean Corpuscular Volume 92 FL (80-99) Mean Corpuscular Hemoglobin 30.9 PG (27.0-31.0) Mean Corpuscular Hemoglobin Concent 33.6 G/DL (32.0-36.0) Red Cell Distribution Width 12.5 % (11.6-14.8) Platelet Count 122 K/UL (150-450) L Mean Platelet Volume 9.8 FL (6.5-10.1) Neutrophils (%) (Auto) % (45.0-75.0) Lymphocytes (%) (Auto) % (20.0-45.0) Monocytes (%) (Auto) % (1.0-10.0) Eosinophils (%) (Auto) % (0.0-3.0) Basophils (%) (Auto) % (0.0-2.0) Differential Total Cells Counted 100 Neutrophils % (Manual) 92 % (45-75) H Lymphocytes % (Manual) 2 % (20-45) L Monocytes % (Manual) 6 % (1-10) Eosinophils % (Manual) 0 % (0-3) Basophils % (Manual) 0 % (0-2) Band Neutrophils 0 % (0-8) Platelet Estimate Decreased L Platelet Morphology Normal Sodium Level 146 MMOL/L (136-145) H Potassium Level 4.0 MMOL/L (3.5-5.1) Chloride Level 110 MMOL/L (98-107) H Carbon Dioxide Level 29 MMOL/L (21-32) Anion Gap 7 mmol/L (5-15) Blood Urea Nitrogen 50 mg/dL (7-18) H Creatinine 3.7 MG/DL (0.55-1.30) H Estimat Glomerular Filtration Rate 16.1 mL/min (>60) Glucose Level 76 MG/DL (74-106) Uric Acid 4.2 MG/DL (2.6-7.2) Calcium Level 7.5 MG/DL (8.5-10.1) L Phosphorus Level 3.2 MG/DL (2.5-4.9) Magnesium Level 2.0 MG/DL (1.8-2.4) Total Bilirubin 0.4 MG/DL (0.2-1.0) Aspartate Amino Transf (AST/SGOT) 46 U/L (15-37) H Alanine Aminotransferase (ALT/SGPT) 39 U/L (12-78) Alkaline Phosphatase 65 U/L (46-116) Total Creatine Kinase 329 U/L (26-308) H C-Reactive Protein, Quantitative Pending Pro-B-Type Natriuretic Peptide 2785 pg/mL (0-125) H Total Protein 4.3 G/DL (6.4-8.2) L Albumin 1.5 G/DL (3.4-5.0) L Globulin 2.8 g/dL Albumin/Globulin Ratio 0.5 (1.0-2.7) L Microbiology Date/Time Source Procedure Growth Status 11/03/20 00:00 Stool Clostridium difficile Toxin Assay - Final Complete Objective HEAD AND NECK: Shows no JVD. LUNGS: Clear. CARDIOVASCULAR: Shows regular S1 and S2 with no gallop. ABDOMEN: Soft. EXTREMITIES: Right groin Yazan. No pitting edema. Sivakumar Escalante MD Nov 04, 2020 15:19
--- NOTE | 2020-11-04 15:26 | NUR ---
NURSE NOTES: Patient oxygen therapy is changed to 3L nasal cannula. Tolerating well with high 90s saturation. Will continue to monitor.
[2020-11-04 16:00] VITALS: BP 115/52
--- NOTE | 2020-11-04 16:45 | NUR ---
NURSE NOTES: meal novolog not given because patient ate less than 50% of food. (eMar instructions)
--- NOTE | 2020-11-04 17:45 | Diagnostic Imaging Report ---
Indication: Cough Technique: One view of the chest Comparison: 10/31/2020 Findings: Interim development of bilateral subtle infiltrates in a peripheral mid and lower lung peribronchovascular distribution. Heart size is normal. The pleural spaces are clear. Impression: Developing bilateral infiltrates, likely multifocal pneumonia.
--- NOTE | 2020-11-04 19:52 | NUR ---
NURSE NOTES: Received report from ARPITA Marina. pt is seen lying in bed in semi- chowdhury's position. Pt is alert oriented x 1-2, confused in restraints for safety. Pt on Nasal cannula on 3 Lpm. Pt is o2 sat- 94%.. pt on semi chowdhury's position, . pt is mainly italian speaking, no pain noted. NSR in the cardiac catheterization technician. MI is within normal limits. Pt has condom cath draining pinkish to reddish urine aware. Platelet is 120, MD aware held eliquis. No pain noted. Bed in lowest position, call light within reach. Continue to plan of care. There is order to transfer to tele. Will transfer accordingly.
[2020-11-04 20:00] VITALS: BP 132/69
--- NOTE | 2020-11-04 20:01 | NUR ---
NURSE NOTES: No hematuria noted at this time. Per AM nurse, lorena Escalante Held eliquis for now.
--- NOTE | 2020-11-04 20:09 | General Progress Note ---
Subjective ROS Limited/Unobtainable: Yes Allergies: Coded Allergies: No Known Allergies (Unverified , 10/31/20) Objective Last 24 Hour Vital Signs Date Time Temp Pulse Resp B/P (MAP) Pulse Ox O2 Delivery O2 Flow Rate FiO2 11/04/20 19:33 95 Nasal Cannula 4.0 36 11/04/20 17:12 55 115/52 11/04/20 16:00 97.1 57 20 115/52 (73) 95 0 11/04/20 15:22 54 11/04/20 13:11 71 101/90 11/04/20 12:00 97.2 71 21 101/70 (80) 99 71 71 11/04/20 11:40 55 11/04/20 09:25 65 115/52 11/04/20 09:00 Simple Mask 6.0 11/04/20 08:00 97.1 72 17 115/57 (76) 100 72 72 11/04/20 07:49 65 11/04/20 06:40 95 Simple Mask 6.0 44 11/04/20 05:38 78 115/65 11/04/20 04:00 98.1 65 21 118/68 (85) 99 11/04/20 04:00 62 11/04/20 04:00 97.7 72 20 97/65 (76) 94 11/04/20 00:00 65 11/04/20 00:00 97.7 72 20 97/65 (76) 94 11/03/20 23:59 67 115/70 11/03/20 21:00 Simple Mask 6.0 11/03/20 20:44 95 Simple Mask 6.0 44 11/03/20 20:25 78 110/60 Intake and Output 11/03/20 11/04/20 19:00 07:00 Intake Total 1325 ml 1075 ml Output Total 1450 ml 70 ml Balance -125 ml 1005 ml Intake Oral 800 ml 250 ml IV Total 525 ml 825 ml Output Urine Total 400 ml 20 ml Stool Total 50 ml 50 ml Hemodialysis UF 1000 ml Laboratory Tests 11/04/20 03:04: White Blood Count 12.3H, Red Blood Count 3.30L, Hemoglobin 10.2L, Hematocrit 30.4L, Mean Corpuscular Volume 92, Mean Corpuscular Hemoglobin 30.9, Mean Corpuscular Hemoglobin Concent 33.6, Red Cell Distribution Width 12.5, Platelet Count 122L, Mean Platelet Volume 9.8, Neutrophils (%) (Auto) , Lymphocytes (%) (Auto) , Monocytes (%) (Auto) , Eosinophils (%) (Auto) , Basophils (%) (Auto) , Differential Total Cells Counted 100, Neutrophils % (Manual) 92H, Lymphocytes % (Manual) 2L, Monocytes % (Manual) 6, Eosinophils % (Manual) 0, Basophils % (Manual) 0, Band Neutrophils 0, Platelet Estimate DecreasedL, Platelet Morpho logy Normal, Sodium Level 146H, Potassium Level 4.0, Chloride Level 110H, Carbon Dioxide Level 29, Anion Gap 7, Blood Urea Nitrogen 50H, Creatinine 3.7H, Estimat Glomerular Filtration Rate 16.1, Glucose Level 76, Uric Acid 4.2, Calcium Level 7.5L, Phosphorus Level 3.2, Magnesium Level 2.0, Total Bilirubin 0.4, Aspartate Amino Transf (AST/SGOT) 46H, Alanine Aminotransferase (ALT/SGPT) 39, Alkaline Phosphatase 65, Total Creatine Kinase 329H, C-Reactive Protein, Quantitative [Pending], Pro-B-Type Natriuretic Peptide 2785H, Total Protein 4.3L, Albumin 1.5L, Globulin 2.8, Albumin/Globulin Ratio 0.5L 11/04/20 12:55: POC Whole Blood Glucose 153H 11/04/20 15:55: POC Whole Blood Glucose 176H Height (Feet): 5 Height (Inches): 5.00 Weight (Pounds): 150 Assessment/Plan Problem List: (1) Renal failure (ARF), acute on chronic ICD Codes: N17.9 - Acute kidney failure, unspecified; N18.9 - Chronic kidney disease, unspecified SNOMED: 621317518 (2) DKA (diabetic ketoacidoses) ICD Codes: E11.10 - Type 2 diabetes mellitus with ketoacidosis without coma SNOMED: 619433609, 35081422 (3) COVID-19 virus infection ICD Codes: U07.1 - COVID-19 SNOMED: 117424284 (4) Rhabdomyolysis ICD Codes: M62.82 - Rhabdomyolysis SNOMED: 282549148 (5) Diabetes mellitus out of control ICD Codes: E11.65 - Type 2 diabetes mellitus with hyperglycemia SNOMED: 90180351, 751047433 (6) Abnormal thyroid blood test ICD Codes: R79.89 - Other specified abnormal findings of blood chemistry SNOMED: 794835645, 385586829208023 (7) NSTEMI (non-ST elevated myocardial infarction) ICD Codes: I21.4 - Non-ST elevation (NSTEMI) myocardial infarction SNOMED: 99377680 Status: progressing, unchanged Assessment/Plan: covid + resp insuff weak dehydration sugar check lytes reviewed chart and labs niddm sugar is improving Corey Soto MD Nov 04, 2020 20:09
--- NOTE | 2020-11-04 20:33 | NUR ---
NURSE NOTES: Transfer pt to tele endorsed to [facility] via hospital bed, VS WNL and pt is stable.
--- NOTE | 2020-11-04 20:40 | NUR ---
NURSE NOTES: The patient was received from [facility] at [facility]. The patient is awake, alert and oriented x1, with some level of confusion and forgetfulness also noted. He is presently on 2 liters of oxygen via NC with Spo2 @ 95%.The patient came with a rectal tube and according to the nurse he previously has excessive diarrhea that might be related to Covid-19 but negative C-diff was registered as indicated.The patient has a Right groin Yazan catheter used essentially for dialysis.he also has a left AC 20g IV line running NS @ 75 well tolerated. The patient came also with a non-violent bilateral soft wrist restraint due to agitation and irritability as indicated.The bed in low level, call light within easy reach and side rails up x2.will continue to monitor as indicated.
--- NOTE | 2020-11-04 21:50 | NUR ---
NURSE NOTES: Received delivery for patient P200 mattress to help preserve his skin integrity as indicated.
[2020-11-04] MEDS: Dyna-Hex 2% Top Sol 2oz TOPIC SCH (22:19)
[2020-11-05] VITALS (7 sets, daily range): BP systolic 103–128; BP diastolic 50–86
[2020-11-05] MEDS: dilTIAZem HCl 60mg tab ORAL SCH ×4 (06:26→18:00)
[2020-11-05] MEDS: NovoLOG Insulin Flexpen SUBQ SCH ×7 (06:29→21:00)
--- NOTE | 2020-11-05 07:15 | NUR ---
NURSE HAND-OFF REPORT: Important Events on Shift:Awake and cooperative with his care Patient Status: Diet: Pending Orders: Pending Results/Labs: Pending MD notification: Latest Vital Signs: Temperature 97.5 , Pulse 68 , B/P 125 /65 , Respiratory Rate 17 , O2 SAT 96 , Nasal Cannula, O2 Flow Rate 6.0 . Vital Sign Comment: EKG Rhythm: Sinus Rhythm Rhythm change?: N Notified?: Amari MCQUEEN MD Response: Message left await call Latest Bhat Fall Score: 60 Fall Risk: High Risk Safety Measures: Call light Within Reach, Bed Alarm Zone 1, Side Rails Side Rails x3, Bed position Low and Locked. Fall Precautions: Yellow Socks Report given to .
--- NOTE | 2020-11-05 07:25 | NUR ---
NURSE NOTES: Received patient in bed. Awake, Alert x1, yakut speaking only. On 3 L NC, respirations unlabored. Rectal tube in place, IV in the Left AC infusing IVF as ordered. Bilateral soft wrist restraints in place, hands are warm, normal color for ethnicity, active ROM. Patient is a high fall risk d/t s/p fall, Bed at the lowest position, bed locked, side rails up x3, bed alarm on high sensitivity, call light within reach - unmable to return demonstration. Yellow gown on, yellow socks on, placed in a room close to the nurse's station for safety and close monitoring, CN and OR ASSISTANT made aware.
[2020-11-05 08:40] LABS: HEMATOCRIT 30.3 % (42.0-52.0); HEMOGLOBIN 10.3 G/DL (14.2-18.0); MEAN CORPUSCULAR VOLUME 90 FL (80-99); PLATELET COUNT 133 K/UL (150-450); RED BLOOD COUNT 3.38 M/UL (4.70-6.10); RED CELL DISTRIBUTION WIDTH 13.8 % (11.6-14.8); WHITE BLOOD COUNT 11.4 K/UL (4.8-10.8)
[2020-11-05] MEDS: Eliquis 2.5mg tablet ORAL SCH ×2 (09:00→18:00)
[2020-11-05] MEDS: dexAMETHasone 10mg/ml Inj IV SCH (09:07)
[2020-11-05] MEDS: Tamsulosin 0.4mg cap ORAL SCH ×2 (09:07→18:46)
[2020-11-05] MEDS: Docusate 100mg cap ORAL SCH ×2 (09:07→18:46)
[2020-11-05] MEDS: Amiodarone 200mg tab ORAL SCH ×2 (09:07→18:47)
[2020-11-05] MEDS: Allopurinol 100mg Tab ORAL SCH (09:07)
[2020-11-05] MEDS: methIMAzole 10mg tab ORAL SCH (09:07)
[2020-11-05] MEDS: Metoprolol Tartrate 50mg tab ORAL SCH ×2 (09:07→21:21)
[2020-11-05] MEDS: Levemir Flexpen SUBQ SCH (09:17)
[2020-11-05 09:18] LABS: ALBUMIN 1.5 G/DL (3.4-5.0); ALBUMIN/GLOBULIN RATIO 0.4 (1.0-2.7); BILIRUBIN,TOTAL 0.5 MG/DL (0.2-1.0); CALCIUM 7.9 MG/DL (8.5-10.1); CREATININE 4.4 MG/DL (0.55-1.30); PHOSPHORUS 4.8 MG/DL (2.5-4.9); POTASSIUM 3.8 MMOL/L (3.5-5.1)
--- NOTE | 2020-11-05 10:15 | Pulmonology Progress Note ---
Subjective ROS Limited/Unobtainable: Yes Interval Events: none major reported per nursing Constitutional: Denies: fever Gastrointestinal/Abdominal: Reports: diarrhea Allergies: Coded Allergies: No Known Allergies (Unverified , 10/31/20) Objective Last 24 Hour Vital Signs Date Time Temp Pulse Resp B/P (MAP) Pulse Ox O2 Delivery O2 Flow Rate FiO2 11/05/20 09:07 67 123/56 11/05/20 08:00 98.0 67 20 123/86 (98) 93 0 11/05/20 08:00 65 11/05/20 06:26 68 125/65 11/05/20 04:00 65 11/05/20 04:00 97.5 61 17 115/51 (72) 96 0 11/05/20 00:00 56 11/05/20 00:00 53 103/50 11/05/20 00:00 97.7 57 17 103/50 (67) 94 0 11/04/20 22:20 69 138/60 11/04/20 21:00 Simple Mask 6.0 11/04/20 20:00 97.5 78 21 132/69 (90) 95 0 11/04/20 19:33 95 Nasal Cannula 4.0 36 11/04/20 19:24 53 11/04/20 17:12 55 115/52 11/04/20 16:00 97.1 57 20 115/52 (73) 95 0 11/04/20 15:22 54 11/04/20 13:11 71 101/90 11/04/20 12:00 97.2 71 21 101/70 (80) 99 71 71 11/04/20 11:40 55 Intake and Output 11/04/20 11/05/20 19:00 07:00 Intake Total 673 ml 980 ml Output Total 400 ml 310 ml Balance 273 ml 670 ml Intake Oral 598 ml 80 ml IV Total 75 ml 900 ml Output Urine Total 400 ml 310 ml General Appearance: WD/WN, no acute distress HEENT: atraumatic Respiratory: lungs clear Cardiovascular: regular rhythm, tachycardia Abdomen: soft, non tender Microbiology Date/Time Source Procedure Growth Status 11/03/20 00:00 Stool Clostridium difficile Toxin Assay - Final Complete Laboratory Tests 11/04/20 12:55: POC Whole Blood Glucose 153H 11/04/20 15:55: POC Whole Blood Glucose 176H 11/05/20 05:12: POC Whole Blood Glucose 161H 11/05/20 07:50: White Blood Count 11.4H, Red Blood Count 3.38L, Hemoglobin 10.3L, Hematocrit 30.3L, Mean Corpuscular Volume 90, Mean Corpuscular Hemoglobin 30.6, Mean Corpuscular Hemoglobin Concent 34.1, Red Cell Distribution Width 13.8, Platelet Count 133L, Mean Platelet Volume 8.8, Neutrophils (%) (Auto) , Lymphocytes (%) (Auto) , Monocytes (%) (Auto) , Eosinophils (%) (Auto) , Basophils (%) (Auto) , Differential Total Cells Counted 100, Neutrophils % (Manual) 90H, Lymphocytes % (Manual) 6L, Monocytes % (Manual) 4, Eosinophils % (Manual) 0, Basophils % (Manual) 0, Band Neutrophils 0, Platelet Estimate DecreasedL, Platelet Morphology Normal, Hypochromasia 1+, Sodium Level 140, Potassium Level 3.8, Chloride Level 105, Carbon Dioxide Level 21, Anion Gap 15, Blood Urea Nitrogen 77H, Creatinine 4.4H, Estimat Glomerular Filtration Rate 13.1, Glucose Level 176#H, Uric Acid 5.2, Calcium Level 7.9L, Phosphorus Level 4.8, Magnesium Level 2.0, Total Bilirubin 0.5, Aspartate Amino Transf (AST/SGOT) 30, Alanine Aminotransferase (ALT/SGPT) 31, Alkaline Phosphatase 69, C-Reactive Protein, Q uantitative [Pending], Pro-B-Type Natriuretic Peptide 1148H, Total Protein 5.0L, Albumin 1.5L, Globulin 3.5, Albumin/Globulin Ratio 0.4L Current Medications Medications (Trade) Dose Ordered Sig/Manasa Route PRN Reason Start Time Stop Time Status Last Admin Dose Admin Acetaminophen (Tylenol) 500 mg Q4H PRN ORAL For Pain 11/01/20 01:00 12/01/20 00:59 11/01/20 18:50 Acetaminophen (Tylenol) 650 mg Q4H PRN RECTAL Temp >100.5 11/01/20 21:30 12/01/20 21:29 Allopurinol (Zyloprim) 200 mg DAILY ORAL 11/01/20 16:00 12/01/20 15:59 11/05/20 09:07 Amiodarone HCl (Cordarone) 400 mg BID ORAL 11/03/20 09:00 02/01/21 08:59 11/05/20 09:07 Apixaban (Eliquis) 2.5 mg BID ORAL 11/02/20 18:00 01/31/21 17:59 11/02/20 17:58 Chlorhexidine Gluconate (María Elena-Hex 2%) 1 applic DAILY@2000 TOPIC 11/04/20 20:00 02/02/21 19:59 11/04/20 22:19 Clonidine HCl (Catapres Tab) 0.1 mg Q4H PRN ORAL bp over 160 syst 10/31/20 17:45 01/29/21 17:44 11/01/20 09:20 Dexamethasone Sodium Phosphate (Decadron 10mg/ ml Inj) 6 mg DAILY IV 11/03/20 09:00 11/13/20 08:59 11/05/20 09:07 Dextrose (Dextrose 50%) 25 ml Q30M PRN IV Hypoglycemia 11/01/20 07:15 01/30/21 07:14 Dextrose (Dextrose 50%) 50 ml Q30M PRN IV Hypoglycemia 11/01/20 07:15 01/30/21 07:14 Diltiazem HCl (Cardizem Tab) 60 mg EVERY 6 HOURS ORAL 11/02/20 18:00 12/02/20 17:59 11/05/20 06:26 Docusate Sodium (Colace) 100 mg TWICE A DAY ORAL 10/31/20 18:00 11/30/20 17:59 11/05/20 09:07 Insulin Aspart (NovoLOG) BEFORE MEALS AND HS SUBQ 11/01/20 11:30 01/30/21 11:29 11/05/20 06:29 Insulin Aspart (NovoLOG) 10 units NOVOTIAC SUBQ 11/03/20 11:50 01/30/21 11:49 11/05/20 06:30 Insulin Detemir (Levemir) 24 units DAILY SUBQ 11/01/20 09:00 01/30/21 08:59 11/05/20 09:17 Methimazole (Tapazole) 10 mg DAILY ORAL 11/03/20 09:00 12/03/20 08:59 11/05/20 09:07 Metoprolol Tartrate (Lopressor) 50 mg Q12HR ORAL 11/01/20 21:00 01/30/21 20:59 11/05/20 09:07 Pantoprazole (Protonix) 40 mg BID ORAL 10/31/20 18:00 11/30/20 17:44 11/05/20 09:07 Sitagliptin Phosphate (Januvia) 100 mg ACBREAKFAST ORAL 11/03/20 07:00 12/03/20 06:59 11/05/20 06:26 Sodium Chloride 1,000 ml @ 75 mls/hr [id number] IV 10/31/20 17:45 11/30/20 17:44 11/05/20 04:25 Tamsulosin HCl (Flomax) 0.4 mg BID ORAL 11/03/20 12:00 12/03/20 11:59 11/05/20 09:07 Assessment/Plan Assessment/Plan Assessment/Plan Assessment/Plan 1. Non-ST elevation myocardial infarction. - cardiology following 2. Diabetic ketoacidosis - seen by endocrinology - continue fluids - insulin 3. Atrial flutter with rapid ventricular response. - Continue metoprolol 50 mg b.i.d. 4. COVID positive pneumonia. - Decadron - Remdesiver per ID - Supplemental O2 - saturating 93% well on 3L/ Min 5. Renal failure; nephrology following 6. HTN 7. DVT ppx - Lovenox Above plan was discussed with supervising physician Jose Quintana NP Nov 05, 2020 10:15
--- NOTE | 2020-11-05 11:14 | General Progress Note ---
Subjective ROS Limited/Unobtainable: Yes Allergies: Coded Allergies: No Known Allergies (Unverified , 10/31/20) Subjective events noted interval notes reviewed glucose values stable Item Value Date Time Bedside Blood Glucose 161 mg/dl H 11/05/20 0917 Bedside Blood Glucose 161 mg/dl H 11/05/20 0630 Bedside Blood Glucose 169 mg/dl H 11/04/20 2224 Bedside Blood Glucose 176 mg/dl H 11/04/20 1659 Bedside Blood Glucose 153 mg/dl H 11/04/20 1301 Objective Last 24 Hour Vital Signs Date Time Temp Pulse Resp B/P (MAP) Pulse Ox O2 Delivery O2 Flow Rate FiO2 11/05/20 09:07 67 123/56 11/05/20 09:00 Nasal Cannula 3.0 11/05/20 08:00 98.0 67 20 123/86 (98) 93 0 11/05/20 08:00 65 11/05/20 06:26 68 125/65 11/05/20 04:00 65 11/05/20 04:00 97.5 61 17 115/51 (72) 96 0 11/05/20 00:00 56 11/05/20 00:00 53 103/50 11/05/20 00:00 97.7 57 17 103/50 (67) 94 0 11/04/20 22:20 69 138/60 11/04/20 21:00 Simple Mask 6.0 11/04/20 20:00 97.5 78 21 132/69 (90) 95 0 11/04/20 19:33 95 Nasal Cannula 4.0 36 11/04/20 19:24 53 11/04/20 17:12 55 115/52 11/04/20 16:00 97.1 57 20 115/52 (73) 95 0 11/04/20 15:22 54 11/04/20 13:11 71 101/90 11/04/20 12:00 97.2 71 21 101/70 (80) 99 71 71 11/04/20 11:40 55 Intake and Output 11/04/20 11/05/20 19:00 07:00 Intake Total 673 ml 980 ml Output Total 400 ml 310 ml Balance 273 ml 670 ml Intake Oral 598 ml 80 ml IV Total 75 ml 900 ml Output Urine Total 400 ml 310 ml Laboratory Tests 11/04/20 12:55: POC Whole Blood Glucose 153H 11/04/20 15:55: POC Whole Blood Glucose 176H 11/05/20 05:12: POC Whole Blood Glucose 161H 11/05/20 07:50: White Blood Count 11.4H, Red Blood Count 3.38L, Hemoglobin 10.3L, Hematocrit 30.3L, Mean Corpuscular Volume 90, Mean Corpuscular Hemoglobin 30.6, Mean Corpuscular Hemoglobin Concent 34.1, Red Cell Distribution Width 13.8, Platelet Count 133L, Mean Platelet Volume 8.8, Neutrophils (%) (Auto) , Lymphocytes (%) (Auto) , Monocytes (%) (Auto) , Eosinophils (%) (Auto) , Basophils (%) (Auto) , Differential Total Cells Counted 100, Neutrophils % (Manual) 90H, Lymphocytes % (Manual) 6L, Monocytes % (Manual) 4, Eosinophils % (Manual) 0, Basophils % (Manual) 0, Band Neutrophils 0, Platelet Estimate DecreasedL, Platelet Morphology Normal, Hypochromasia 1+, Sodium Level 140, Potassium Level 3.8, Chloride Level 105, Carbon Dioxide Level 21, Anion Gap 15, Blood Urea Nitrogen 77H, Creatinine 4.4H, Estimat Glomerular Filtration Rate 13.1, Glucose Level 176#H, Uric Acid 5.2, Calcium Level 7.9L, Phosphorus Level 4.8, Magnesium Level 2.0, Total Bilirubin 0.5, Aspartate Amino Transf (AST/SGOT) 30, Alanine Aminotransferase (ALT/SGPT) 31, Alkaline Phosphatase 69, C-Reactive Protein, Quantitative [Pending], Pro-B-Type Natriuretic Peptide 1148H, Total Protein 5.0L , Albumin 1.5L, Globulin 3.5, Albumin/Globulin Ratio 0.4L Height (Feet): 5 Height (Inches): 5.00 Weight (Pounds): 150 Objective Current Medications Medications (Trade) Dose Ordered Sig/Manasa Route PRN Reason Start Time Stop Time Status Last Admin Dose Admin Acetaminophen (Tylenol) 500 mg Q4H PRN ORAL For Pain 11/01/20 01:00 12/01/20 00:59 11/01/20 18:50 Acetaminophen (Tylenol) 650 mg Q4H PRN RECTAL Temp >100.5 11/01/20 21:30 12/01/20 21:29 Allopurinol (Zyloprim) 200 mg DAILY ORAL 11/01/20 16:00 12/01/20 15:59 11/05/20 09:07 Amiodarone HCl (Cordarone) 400 mg BID ORAL 11/03/20 09:00 02/01/21 08:59 11/05/20 09:07 Apixaban (Eliquis) 2.5 mg BID ORAL 11/02/20 18:00 01/31/21 17:59 11/02/20 17:58 Chlorhexidine Gluconate (María Elena-Hex 2%) 1 applic DAILY@1999 TOPIC 11/04/20 20:00 02/02/21 19:59 11/04/20 22:19 Clonidine HCl (Catapres Tab) 0.1 mg Q4H PRN ORAL bp over 160 syst 10/31/20 17:45 01/29/21 17:44 11/01/20 09:20 Dexamethasone Sodium Phosphate (Decadron 10mg/ ml Inj) 6 mg DAILY IV 11/03/20 09:00 11/13/20 08:59 11/05/20 09:07 Dextrose (Dextrose 50%) 25 ml Q30M PRN IV Hypoglycemia 11/01/20 07:15 01/30/21 07:14 Dextrose (Dextrose 50%) 50 ml Q30M PRN IV Hypoglycemia 11/01/20 07:15 01/30/21 07:14 Diltiazem HCl (Cardizem Tab) 60 mg EVERY 6 HOURS ORAL 11/02/20 18:00 12/02/20 17:59 11/05/20 06:26 Docusate Sodium (Colace) 100 mg TWICE A DAY ORAL 10/31/20 18:00 11/30/20 17:59 11/05/20 09:07 Insulin Aspart (NovoLOG) BEFORE MEALS AND HS SUBQ 11/01/20 11:30 01/30/21 11:29 11/05/20 06:29 Insulin Aspart (NovoLOG) 10 units NOVOTIAC SUBQ 11/03/20 11:50 01/30/21 11:49 11/05/20 06:30 Insulin Detemir (Levemir) 24 units DAILY SUBQ 11/01/20 09:00 01/30/21 08:59 11/05/20 09:17 Methimazole (Tapazole) 10 mg DAILY ORAL 11/03/20 09:00 12/03/20 08:59 11/05/20 09:07 Metoprolol Tartrate (Lopressor) 50 mg Q12HR ORAL 11/01/20 21:00 01/30/21 20:59 11/05/20 09:07 Pantoprazole (Protonix) 40 mg BID ORAL 10/31/20 18:00 11/30/20 17:44 11/05/20 09:07 Sitagliptin Phosphate (Januvia) 25 mg ACBREAKFAST ORAL 11/06/20 06:30 12/06/20 06:29 UNV Sodium Chloride 1,000 ml @ 75 mls/hr [id number] IV 10/31/20 17:45 11/30/20 17:44 11/05/20 04:25 Tamsulosin HCl (Flomax) 0.4 mg BID ORAL 11/03/20 12:00 12/03/20 11:59 11/05/20 09:07 Assessment/Plan Problem List: (1) Abnormal thyroid blood test ICD Codes: R79.89 - Other specified abnormal findings of blood chemistry SNOMED: 837060386, 298033355644828 (2) Diabetes mellitus out of control ICD Codes: E11.65 - Type 2 diabetes mellitus with hyperglycemia SNOMED: 74200093, 093662978 (3) Renal failure (ARF), acute on chronic ICD Codes: N17.9 - Acute kidney failure, unspecified; N18.9 - Chronic kidney disease, unspecified SNOMED: 427353756 (4) COVID-19 virus infection ICD Codes: U07.1 - COVID-19 SNOMED: 976068833 (5) DKA (diabetic ketoacidoses) ICD Codes: E11.10 - Type 2 diabetes mellitus with ketoacidosis without coma SNOMED: 964894149, 76665820 (6) NSTEMI (non-ST elevated myocardial infarction) ICD Codes: I21.4 - Non-ST elevation (NSTEMI) myocardial infarction SNOMED: 96120702 Status: progressing, unchanged Assessment/Plan: continue Levemir 24 units qam increase Novolog 8 to 10 units ac tid + SSI continue Januvia 25 mg daily continue Tapazole 10 mg daily ATPO, TSI pending Markus Tamez MD Nov 05, 2020 11:14
--- NOTE | 2020-11-05 11:44 | Infectious Diseases Prog Note ---
Assessment/Plan Assessment/Plan A; COVID19 pneumonia Hypoxemia Acute renal failure Rhabdomyolysis Diarrhea, C. difficile negative DKA Hyperthyroidism P; Continue Dexamethasone Subjective ROS Limited/Unobtainable: Yes Constitutional: Reports: other - doing better transferred from [facility] to telemetry Neurologic: Reports: confusion, other - on restraint Allergies: Coded Allergies: No Known Allergies (Unverified , 10/31/20) Objective Last 24 Hour Vital Signs Date Time Temp Pulse Resp B/P (MAP) Pulse Ox O2 Delivery O2 Flow Rate FiO2 11/05/20 09:07 67 123/56 11/05/20 09:00 Nasal Cannula 3.0 11/05/20 08:00 98.0 67 20 123/86 (98) 93 0 11/05/20 08:00 65 11/05/20 06:26 68 125/65 11/05/20 04:00 65 11/05/20 04:00 97.5 61 17 115/51 (72) 96 0 11/05/20 00:00 56 11/05/20 00:00 53 103/50 11/05/20 00:00 97.7 57 17 103/50 (67) 94 0 11/04/20 22:20 69 138/60 11/04/20 21:00 Simple Mask 6.0 11/04/20 20:00 97.5 78 21 132/69 (90) 95 0 11/04/20 19:33 95 Nasal Cannula 4.0 36 11/04/20 19:24 53 11/04/20 17:12 55 115/52 11/04/20 16:00 97.1 57 20 115/52 (73) 95 0 11/04/20 15:22 54 11/04/20 13:11 71 101/90 11/04/20 12:00 97.2 71 21 101/70 (80) 99 71 71 Height (Feet): 5 Height (Inches): 5.00 Weight (Pounds): 150 HEENT: mucous membranes moist Respiratory/Chest: other - oxygen by nasal cannula Cardiovascular: normal rate Abdomen: soft, non tender, other Extremities: other - developing edema Neurologic/Psychiatric: other - sleeping Microbiology Date/Time Source Procedure Growth Status 11/03/20 00:00 Stool Clostridium difficile Toxin Assay - Final Complete Laboratory Tests Test 11/04/20 12:55 1/8/21 15:55 11/05/20 05:12 11/05/20 07:50 POC Whole Blood Glucose 153 MG/DL (74-106) H 176 MG/DL (74-106) H 161 MG/DL (74-106) H White Blood Count 11.4 K/UL (4.8-10.8) H Red Blood Count 3.38 M/UL (4.70-6.10) L Hemoglobin 10.3 G/DL (14.2-18.0) L Hematocrit 30.3 % (42.0-52.0) L Mean Corpuscular Volume 90 FL (80-99) Mean Corpuscular Hemoglobin 30.6 PG (27.0-31.0) Mean Corpuscular Hemoglobin Concent 34.1 G/DL (32.0-36.0) Red Cell Distribution Width 13.8 % (11.6-14.8) Platelet Count 133 K/UL (150-450) L Mean Platelet Volume 8.8 FL (6.5-10.1) Neutrophils (%) (Auto) % (45.0-75.0) Lymphocytes (%) (Auto) % (20.0-45.0) Monocytes (%) (Auto) % (1.0-10.0) Eosinophils (%) (Auto) % (0.0-3.0) Basophils (%) (Auto) % (0.0-2.0) Differential Total Cells Counted 100 Neutrophils % (Manual) 90 % (45-75) H Lymphocytes % (Manual) 6 % (20-45) L Monocytes % (Manual) 4 % (1-10) Eosinophils % (Manual) 0 % (0-3) Basophils % (Manual) 0 % (0-2) Band Neutrophils 0 % (0-8) Platelet Estimate Decreased L Platelet Morphology Normal Hypochromasia 1+ Sodium Level 140 MMOL/L (136-145) Potassium Level 3.8 MMOL/L (3.5-5.1) Chloride Level 105 MMOL/L (98-107) Carbon Dioxide Level 21 MMOL/L (21-32) Anion Gap 15 mmol/L (5-15) Blood Urea Nitrogen 77 mg/dL (7-18) H Creatinine 4.4 MG/DL (0.55-1.30) H Estimat Glomerular Filtration Rate 13.1 mL/min (>60) Glucose Level 176 MG/DL (74-106) #H Uric Acid 5.2 MG/DL (2.6-7.2) Calcium Level 7.9 MG/DL (8.5-10.1) L Phosphorus Level 4.8 MG/DL (2.5-4.9) Magnesium Level 2.0 MG/DL (1.8-2.4) Total Bilirubin 0.5 MG/DL (0.2-1.0) Aspartate Amino Transf (AST/SGOT) 30 U/L (15-37) Alanine Aminotransferase (ALT/SGPT) 31 U/L (12-78) Alkaline Phosphatase 69 U/L (46-116) C-Reactive Protein, Quantitative Pending Pro-B-Type Natriuretic Peptide 1148 pg/mL (0-125) H Total Protein 5.0 G/DL (6.4-8.2) L Albumin 1.5 G/DL (3.4-5.0) L Globulin 3.5 g/dL Albumin/Globulin Ratio 0.4 (1.0-2.7) L Current Medications Medications (Trade) Dose Ordered Sig/Manasa Route PRN Reason Start Time Stop Time Status Last Admin Dose Admin Acetaminophen (Tylenol) 500 mg Q4H PRN ORAL For Pain 11/01/20 01:00 12/01/20 00:59 11/01/20 18:50 Acetaminophen (Tylenol) 650 mg Q4H PRN RECTAL Temp >100.5 11/01/20 21:30 12/01/20 21:29 Allopurinol (Zyloprim) 200 mg DAILY ORAL 11/01/20 16:00 12/01/20 15:59 11/05/20 09:07 Amiodarone HCl (Cordarone) 400 mg BID ORAL 11/03/20 09:00 02/01/21 08:59 11/05/20 09:07 Apixaban (Eliquis) 2.5 mg BID ORAL 11/02/20 18:00 01/31/21 17:59 11/02/20 17:58 Chlorhexidine Gluconate (María Elena-Hex 2%) 1 applic DAILY@2000 TOPIC 11/04/20 20:00 02/02/21 19:59 11/04/20 22:19 Clonidine HCl (Catapres Tab) 0.1 mg Q4H PRN ORAL bp over 160 syst 1/4/21 17:45 01/29/21 17:44 11/01/20 09:20 Dexamethasone Sodium Phosphate (Decadron 10mg/ ml Inj) 6 mg DAILY IV 11/03/20 09:00 11/13/20 08:59 11/05/20 09:07 Dextrose (Dextrose 50%) 25 ml Q30M PRN IV Hypoglycemia 11/01/20 07:15 01/30/21 07:14 Dextrose (Dextrose 50%) 50 ml Q30M PRN IV Hypoglycemia 11/01/20 07:15 01/30/21 07:14 Diltiazem HCl (Cardizem Tab) 60 mg EVERY 6 HOURS ORAL 11/02/20 18:00 12/02/20 17:59 11/05/20 06:26 Docusate Sodium (Colace) 100 mg TWICE A DAY ORAL 10/31/20 18:00 11/30/20 17:59 11/05/20 09:07 Insulin Aspart (NovoLOG) BEFORE MEALS AND HS SUBQ 11/01/20 11:30 01/30/21 11:29 11/05/20 06:29 Insulin Aspart (NovoLOG) 10 units NOVOTIAC SUBQ 11/03/20 11:50 01/30/21 11:49 11/05/20 06:30 Insulin Detemir (Levemir) 24 units DAILY SUBQ 11/01/20 09:00 01/30/21 08:59 11/05/20 09:17 Methimazole (Tapazole) 10 mg DAILY ORAL 11/03/20 09:00 12/03/20 08:59 11/05/20 09:07 Metoprolol Tartrate (Lopressor) 50 mg Q12HR ORAL 11/01/20 21:00 01/30/21 20:59 11/05/20 09:07 Pantoprazole (Protonix) 40 mg BID ORAL 10/31/20 18:00 11/30/20 17:44 11/05/20 09:07 Sitagliptin Phosphate (Januvia) 25 mg ACBREAKFAST ORAL 11/06/20 06:30 12/06/20 06:29 UNV Sodium Chloride 1,000 ml @ 75 mls/hr [id number] IV 10/31/20 17:45 11/30/20 17:44 11/05/20 04:25 Tamsulosin HCl (Flomax) 0.4 mg BID ORAL 11/03/20 12:00 12/03/20 11:59 11/05/20 09:07 Reij Connelly MD Nov 05, 2020 11:44
--- NOTE | 2020-11-05 11:54 | Surgery Progress Note ---
Surgery Progress Note Subjective Procedure Performed Right femoral temporary hemodialysis catheter insertion Symptoms: improved, tolerating diet, passing flatus Objective Last 24 Hour Vital Signs Date Time Temp Pulse Resp B/P (MAP) Pulse Ox O2 Delivery O2 Flow Rate FiO2 11/05/20 09:07 67 123/56 11/05/20 09:00 Nasal Cannula 3.0 11/05/20 08:00 98.0 67 20 123/86 (98) 93 0 11/05/20 08:00 65 11/05/20 06:26 68 125/65 11/05/20 04:00 65 11/05/20 04:00 97.5 61 17 115/51 (72) 96 0 11/05/20 00:00 56 11/05/20 00:00 53 103/50 11/05/20 00:00 97.7 57 17 103/50 (67) 94 0 11/04/20 22:20 69 138/60 11/04/20 21:00 Simple Mask 6.0 11/04/20 20:00 97.5 78 21 132/69 (90) 95 0 11/04/20 19:33 95 Nasal Cannula 4.0 36 11/04/20 19:24 53 11/04/20 17:12 55 115/52 11/04/20 16:00 97.1 57 20 115/52 (73) 95 0 11/04/20 15:22 54 11/04/20 13:11 71 101/90 11/04/20 12:00 97.2 71 21 101/70 (80) 99 71 71 I&O Intake and Output 11/04/20 11/05/20 19:00 07:00 Intake Total 673 ml 980 ml Output Total 400 ml 310 ml Balance 273 ml 670 ml Intake Oral 598 ml 80 ml IV Total 75 ml 900 ml Output Urine Total 400 ml 310 ml Dressing: saturated Cardiovascular: RSR Respiratory: decreased breath sounds Abdomen: soft, non-tender, present bowel sounds Extremities: no edema, no tenderness, no cyanosis Laboratory Tests Test 11/04/20 12:55 11/04/20 15:55 11/05/20 05:12 11/05/20 07:50 POC Whole Blood Glucose 153 MG/DL (74-106) H 176 MG/DL (74-106) H 161 MG/DL (74-106) H White Blood Count 11.4 K/UL (4.8-10.8) H Red Blood Count 3.38 M/UL (4.70-6.10) L Hemoglobin 10.3 G/DL (14.2-18.0) L Hematocrit 30.3 % (42.0-52.0) L Mean Corpuscular Volume 90 FL (80-99) Mean Corpuscular Hemoglobin 30.6 PG (27.0-31.0) Mean Corpuscular Hemoglobin Concent 34.1 G/DL (32.0-36.0) Red Cell Distribution Width 13.8 % (11.6-14.8) Platelet Count 133 K/UL (150-450) L Mean Platelet Volume 8.8 FL (6.5-10.1) Neutrophils (%) (Auto) % (45.0-75.0) Lymphocytes (%) (Auto) % (20.0-45.0) Monocytes (%) (Auto) % (1.0-10.0) Eosinophils (%) (Auto) % (0.0-3.0) Basophils (%) (Auto) % (0.0-2.0) Differential Total Cells Counted 100 Neutrophils % (Manual) 90 % (45-75) H Lymphocytes % (Manual) 6 % (20-45) L Monocytes % (Manual) 4 % (1-10) Eosinophils % (Manual) 0 % (0-3) Basophils % (Manual) 0 % (0-2) Band Neutrophils 0 % (0-8) Platelet Estimate Decreased L Platelet Morphology Normal Hypochromasia 1+ Sodium Level 140 MMOL/L (136-145) Potassium Level 3.8 MMOL/L (3.5-5.1) Chloride Level 105 MMOL/L (98-107) Carbon Dioxide Level 21 MMOL/L (21-32) Anion Gap 15 mmol/L (5-15) Blood Urea Nitrogen 77 mg/dL (7-18) H Creatinine 4.4 MG/DL (0.55-1.30) H Estimat Glomerular Filtration Rate 13.1 mL/min (>60) Glucose Level 176 MG/DL (74-106) #H Uric Acid 5.2 MG/DL (2.6-7.2) Calcium Level 7.9 MG/DL (8.5-10.1) L Phosphorus Level 4.8 MG/DL (2.5-4.9) Magnesium Level 2.0 MG/DL (1.8-2.4) Total Bilirubin 0.5 MG/DL (0.2-1.0) Aspartate Amino Transf (AST/SGOT) 30 U/L (15-37) Alanine Aminotransferase (ALT/SGPT) 31 U/L (12-78) Alkaline Phosphatase 69 U/L (46-116) C-Reactive Protein, Quantitative Pending Pro-B-Type Natriuretic Peptide 1148 pg/mL (0-125) H Total Protein 5.0 G/DL (6.4-8.2) L Albumin 1.5 G/DL (3.4-5.0) L Globulin 3.5 g/dL Albumin/Globulin Ratio 0.4 (1.0-2.7) L Plan Problems: (1) DKA (diabetic ketoacidoses) (2) Renal failure (ARF), acute on chronic (3) COVID-19 virus infection Assessment & Plan: 75-year-old male Covid positive renal insufficiency recently had temporary dialysis catheter placement develop leukocytosis soon after. Vitals noted. Exam stable. Catheter was evaluated no acute active inflammatory or infectious process identified. Catheter is clean dry intact. The dressings are not saturated. There is no active bleeding identified. There is no signs of active infection. Leukocytosis anterior collated to medications currently given for COVID-19 infection. Will monitor closely to ensure no active development of infection or related to catheter placement. Thank you for let me participate patient's care will follow with recommendations trend leukocytosis (4) Rhabdomyolysis (5) Diabetes mellitus out of control (6) Abnormal thyroid blood test (7) NSTEMI (non-ST elevated myocardial infarction) Norberto Steele Nov 05, 2020 11:54
--- NOTE | 2020-11-05 12:20 | NUR ---
NURSE NOTES: REYMUNDO Garcia held D/t HR 60.
--- NOTE | 2020-11-05 12:50 | Nephrology Progress Note ---
Assessment/Plan Problem List: (1) Renal failure (ARF), acute on chronic (2) DKA (diabetic ketoacidoses) (3) COVID-19 virus infection (4) Rhabdomyolysis (5) Abnormal thyroid blood test (6) NSTEMI (non-ST elevated myocardial infarction) Assessment 75-year-old [place] male Covid positive Acute renal failure, most likely superimposed on chronic kidney disease Diabetes mellitus, presents with severe hyperglycemia and DKA History of hypertension Plan November 05: Due for dialysis today. Labs are reviewed. Blood pressure is stable. Continue to monitor renal parameters. November 04: Patient was dialyzed yesterday. 1 L ultrafiltrated. Labs reviewed. Renal parameters stable. Will attempt dialysis again tomorrow. Medication list reviewed. November 03: Labs reviewed. Serum creatinine rising. Patient has hematuria. Patient on Eliquis. Will arrange for placement of dialysis catheter and attempt to dialyze. Will start Flomax since the patient could not have a Anand catheter. Continue to monitor renal parameters. Continue per consultants. Discussed with RN. Consent for placement of nontunneled catheter ordered. Patient is also on Tapazole for high thyroid hormone. CPK is lowering. November 02: Labs reviewed. Serum creatinine up to 4. In S DU now. On Cardizem drip. Measured creatinine clearance . Patient may lead towards dialysis. Continue to monitor renal parameters. November 01: Renal parameters improving. Blood sugar is improving. Continue to monitor electrolytes renal parameters and urine output. Aim to control blood sugar and blood pressure. Avoid nephrotoxic's. Monitor CPK as it is elevated. Previously: Anand catheter Blood sugar control Slow hydration Monitor renal parameters Kidney ultrasound no hydronephrosis 2D echocardiogram ejection fraction 60 to 65%. Per orders Subjective ROS Limited/Unobtainable: No Objective Objective Last 24 Hour Vital Signs Date Time Temp Pulse Resp B/P (MAP) Pulse Ox O2 Delivery O2 Flow Rate FiO2 11/05/20 09:07 67 123/56 11/05/20 09:00 Nasal Cannula 3.0 11/05/20 08:10 95 Nasal Cannula 4.0 36 11/05/20 08:00 98.0 67 20 123/86 (98) 93 0 11/05/20 08:00 65 11/05/20 06:26 68 125/65 11/05/20 04:00 65 11/05/20 04:00 97.5 61 17 115/51 (72) 96 0 11/05/20 00:00 56 11/05/20 00:00 53 103/50 11/05/20 00:00 97.7 57 17 103/50 (67) 94 0 11/04/20 22:20 69 138/60 11/04/20 21:00 Simple Mask 6.0 11/04/20 20:00 97.5 78 21 132/69 (90) 95 0 11/04/20 19:33 95 Nasal Cannula 4.0 36 11/04/20 19:24 53 11/04/20 17:12 55 115/52 11/04/20 16:00 97.1 57 20 115/52 (73) 95 0 11/04/20 15:22 54 11/04/20 13:11 71 101/90 Intake and Output 11/04/20 11/05/20 19:00 07:00 Intake Total 673 ml 980 ml Output Total 400 ml 310 ml Balance 273 ml 670 ml Intake Oral 598 ml 80 ml IV Total 75 ml 900 ml Output Urine Total 400 ml 310 ml Laboratory Tests 11/04/20 12:55: POC Whole Blood Glucose 153H 11/04/20 15:55: POC Whole Blood Glucose 176H 11/05/20 05:12: POC Whole Blood Glucose 161H 11/05/20 07:50: White Blood Count 11.4H, Red Blood Count 3.38L, Hemoglobin 10.3L, Hematocrit 30.3L, Mean Corpuscular Volume 90, Mean Corpuscular Hemoglobin 30.6, Mean Corpuscular Hemoglobin Concent 34.1, Red Cell Distribution Width 13.8, Platelet Count 133L, Mean Platelet Volume 8.8, Neutrophils (%) (Auto) , Lymphocytes (%) (Auto) , Monocytes (%) (Auto) , Eosinophils (%) (Auto) , Basophils (%) (Auto) , Differential Total Cells Counted 100, Neutrophils % (Manual) 90H, Lymphocytes % (Manual) 6L, Monocytes % (Manual) 4, Eosinophils % (Manual) 0, Basophils % (Manual) 0, Band Neutrophils 0, Platelet Estimate DecreasedL, Platelet Morphology Normal, Hypochromasia 1+, Sodium Level 140, Potassium Level 3.8, Chloride Level 105, Carbon Dioxide Level 21, Anion Gap 15, Blood Urea Nitrogen 77H, Creatinine 4.4H, Estimat Glomerular Filtration Rate 13.1, Glucose Level 176#H, Uric Acid 5.2, Calcium Level 7.9L, Phosphorus Level 4.8, Magnesium Level 2.0, Total Bilirubin 0.5, Aspartate Amino Transf (AST/SGOT) 30, Alanine Aminotransferase (ALT/SGPT) 31, Alkaline Phosphatase 69, C-Reactive Protein, Quantitative [Pending], Pro-B-Type Natriuretic Peptide 1148H, Total Protein 5.0L , Albumin 1.5L, Globulin 3.5, Albumin/Globulin Ratio 0.4L 11/05/20 11:48: POC Whole Blood Glucose [Pending] Height (Feet): 5 Height (Inches): 5.00 Weight (Pounds): 150 General Appearance: no apparent distress EENT: other - On nasal cannula Cardiovascular: normal rate Respiratory/Chest: decreased breath sounds Abdomen: distended Garth Buckley MD Nov 05, 2020 12:50
--- NOTE | 2020-11-05 18:18 | Cardiac Electrophysiology PN ---
Assessment/Plan Assessment/Plan 1. NSTEMI with troponin of 0.25 and 0.35 in this patient with DKA as well as atrial flutter with rapid ventricular response. On metoprolol 50 mg b.i.d. EF 65% 2. Atrial flutter with RVR On metoprolol 50 mg bid, Cardizem 60 po q 6 hr and Amiodarone 400 po bid Eliquis 2.5 bid held for hematuria 3. Diabetic ketoacidosis with glucose of more than 1000. 4. Accelerated hypertension. On Lopressor 50 bid and Cardizem 60 q 6 5. COVID positive pneumonia. 6. Acute Renal failure in the setting of total CK of 1900, maybe rhabdomyolysis- induced renal failure. On HD via RFV Yazan by Dr. Ina ROTHMAN RN Subjective Subjective Had RFV Yazan catheter placement. Had 2 liter HD in covid isolation. On 5 liter NC. In SR on Amio and metoprolol. Eliquis DCed due to hematuria Objective Last 24 Hour Vital Signs Date Time Temp Pulse Resp B/P (MAP) Pulse Ox O2 Delivery O2 Flow Rate FiO2 11/05/20 16:00 96.8 73 21 126/71 (89) 94 0 11/05/20 12:00 61 11/05/20 12:00 98.7 60 23 124/61 (82) 93 0 11/05/20 09:07 67 123/56 11/05/20 09:00 Nasal Cannula 3.0 11/05/20 08:10 95 Nasal Cannula 4.0 36 11/05/20 08:00 98.0 67 20 123/86 (98) 93 0 11/05/20 08:00 65 11/05/20 06:26 68 125/65 11/05/20 04:00 65 11/05/20 04:00 97.5 61 17 115/51 (72) 96 0 11/05/20 00:00 56 11/05/20 00:00 53 103/50 11/05/20 00:00 97.7 57 17 103/50 (67) 94 0 11/04/20 22:20 69 138/60 11/04/20 21:00 Simple Mask 6.0 11/04/20 20:00 97.5 78 21 132/69 (90) 95 0 11/04/20 19:33 95 Nasal Cannula 4.0 36 11/04/20 19:24 53 Intake and Output 11/04/20 11/05/20 19:00 07:00 Intake Total 673 ml 980 ml Output Total 400 ml 310 ml Balance 273 ml 670 ml Intake Oral 598 ml 80 ml IV Total 75 ml 900 ml Output Urine Total 400 ml 310 ml Laboratory Tests Test 11/05/20 05:12 11/05/20 07:50 11/05/20 11:48 POC Whole Blood Glucose 161 MG/DL (74-106) H Pending White Blood Count 11.4 K/UL (4.8-10.8) H Red Blood Count 3.38 M/UL (4.70-6.10) L Hemoglobin 10.3 G/DL (14.2-18.0) L Hematocrit 30.3 % (42.0-52.0) L Mean Corpuscular Volume 90 FL (80-99) Mean Corpuscular Hemoglobin 30.6 PG (27.0-31.0) Mean Corpuscular Hemoglobin Concent 34.1 G/DL (32.0-36.0) Red Cell Distribution Width 13.8 % (11.6-14.8) Platelet Count 133 K/UL (150-450) L Mean Platelet Volume 8.8 FL (6.5-10.1) Neutrophils (%) (Auto) % (45.0-75.0) Lymphocytes (%) (Auto) % (20.0-45.0) Monocytes (%) (Auto) % (1.0-10.0) Eosinophils (%) (Auto) % (0.0-3.0) Basophils (%) (Auto) % (0.0-2.0) Differential Total Cells Counted 100 Neutrophils % (Manual) 90 % (45-75) H Lymphocytes % (Manual) 6 % (20-45) L Monocytes % (Manual) 4 % (1-10) Eosinophils % (Manual) 0 % (0-3) Basophils % (Manual) 0 % (0-2) Band Neutrophils 0 % (0-8) Platelet Estimate Decreased L Platelet Morphology Normal Hypochromasia 1+ Sodium Level 140 MMOL/L (136-145) Potassium Level 3.8 MMOL/L (3.5-5.1) Chloride Level 105 MMOL/L (98-107) Carbon Dioxide Level 21 MMOL/L (21-32) Anion Gap 15 mmol/L (5-15) Blood Urea Nitrogen 77 mg/dL (7-18) H Creatinine 4.4 MG/DL (0.55-1.30) H Estimat Glomerular Filtration Rate 13.1 mL/min (>60) Glucose Level 176 MG/DL (74-106) #H Uric Acid 5.2 MG/DL (2.6-7.2) Calcium Level 7.9 MG/DL (8.5-10.1) L Phosphorus Level 4.8 MG/DL (2.5-4.9) Magnesium Level 2.0 MG/DL (1.8-2.4) Total Bilirubin 0.5 MG/DL (0.2-1.0) Aspartate Amino Transf (AST/SGOT) 30 U/L (15-37) Alanine Aminotransferase (ALT/SGPT) 31 U/L (12-78) Alkaline Phosphatase 69 U/L (46-116) C-Reactive Protein, Quantitative Pending Pro-B-Type Natriuretic Peptide 1148 pg/mL (0-125) H Total Protein 5.0 G/DL (6.4-8.2) L Albumin 1.5 G/DL (3.4-5.0) L Globulin 3.5 g/dL Albumin/Globulin Ratio 0.4 (1.0-2.7) L Microbiology Date/Time Source Procedure Growth Status 11/03/20 00:00 Stool Clostridium difficile Toxin Assay - Final Complete Objective HEAD AND NECK: Shows no JVD. LUNGS: Clear. CARDIOVASCULAR: Shows regular S1 and S2 with no gallop. ABDOMEN: Soft. EXTREMITIES: Right groin Yazan. No pitting edema. Sivakumar Escalante MD Nov 05, 2020 18:18
--- NOTE | 2020-11-05 19:19 | NUR ---
NURSE HAND-OFF REPORT: Important Events on Shift:[HD] Patient Status: [FULL CODE/Stable] Diet: [renal puree] Pending Orders: [] Pending Results/Labs:[] Pending MD notification:[] Latest Vital Signs: Temperature 96.8 , Pulse 59 , B/P 126 /71 , Respiratory Rate 21 , O2 SAT 94 , Nasal Cannula, O2 Flow Rate 3.0 . Vital Sign Comment: [] EKG Rhythm: Sinus Bradycardia Rhythm change?: N MD Notified?: Amari MCQUEEN MD Response: Message left await call Latest Bhat Fall Score: 60 Fall Risk: High Risk Safety Measures: Call light Within Reach, Bed Alarm Zone 1, Side Rails Side Rails x3, Bed position Low and Locked. Fall Precautions: Yellow Socks Report given to [Shivani RN].
--- NOTE | 2020-11-05 19:33 | General Progress Note ---
Subjective ROS Limited/Unobtainable: Yes Allergies: Coded Allergies: No Known Allergies (Unverified , 10/31/20) Objective Last 24 Hour Vital Signs Date Time Temp Pulse Resp B/P (MAP) Pulse Ox O2 Delivery O2 Flow Rate FiO2 11/05/20 16:00 59 11/05/20 16:00 96.8 73 21 126/71 (89) 94 0 11/05/20 12:00 61 11/05/20 12:00 98.7 60 23 124/61 (82) 93 0 11/05/20 09:07 67 123/56 11/05/20 09:00 Nasal Cannula 3.0 11/05/20 08:10 95 Nasal Cannula 4.0 36 11/05/20 08:00 98.0 67 20 123/86 (98) 93 0 11/05/20 08:00 65 11/05/20 06:26 68 125/65 11/05/20 04:00 65 11/05/20 04:00 97.5 61 17 115/51 (72) 96 0 11/05/20 00:00 56 11/05/20 00:00 53 103/50 11/05/20 00:00 97.7 57 17 103/50 (67) 94 0 11/04/20 22:20 69 138/60 11/04/20 21:00 Simple Mask 6.0 11/04/20 20:00 97.5 78 21 132/69 (90) 95 0 11/04/20 19:33 95 Nasal Cannula 4.0 36 Intake and Output 11/04/20 11/05/20 19:00 07:00 Intake Total 673 ml 980 ml Output Total 400 ml 310 ml Balance 273 ml 670 ml Intake Oral 598 ml 80 ml IV Total 75 ml 900 ml Output Urine Total 400 ml 310 ml Laboratory Tests 11/05/20 05:12: POC Whole Blood Glucose 161H 11/05/20 07:50: White Blood Count 11.4H, Red Blood Count 3.38L, Hemoglobin 10.3L, Hematocrit 30.3L, Mean Corpuscular Volume 90, Mean Corpuscular Hemoglobin 30.6, Mean Corpuscular Hemoglobin Concent 34.1, Red Cell Distribution Width 13.8, Platelet Count 133L, Mean Platelet Volume 8.8, Neutrophils (%) (Auto) , Lymphocytes (%) (Auto) , Monocytes (%) (Auto) , Eosinophils (%) (Auto) , Basophils (%) (Auto) , Differential Total Cells Counted 100, Neutrophils % (Manual) 90H, Lymphocytes % (Manual) 6L, Monocytes % (Manual) 4, Eosinophils % (Manual) 0, Basophils % (Manual) 0, Band Neutrophils 0, Platelet Estimate DecreasedL, Platelet Morphology Normal, Hypochromasia 1+, Sodium Level 140, Potassium Level 3.8, Chloride Level 105, Carbon Dioxide Level 21, Anion Gap 15, Blood Urea Nitrogen 77H, Creatinine 4.4H, Estimat Glomerular Filtration Rate 13.1, Glucose Level 176#H, Uric Acid 5.2, Calcium Level 7.9L, Phosphorus Level 4.8, Magnesium Level 2.0, Total Bilirubin 0.5, Aspartate Amino Transf (AST/SGOT) 30, Alanine Aminotransferase (ALT/SGPT) 31, Alkaline Phosphatase 69, C-Reactive Protein, Quantitative [Pending], Pro-B-Type Natriuretic Peptide 1148H, Total Protein 5.0L , Albumin 1.5L, Globulin 3.5, Albumin/Globulin Ratio 0.4L 11/05/20 11:48: POC Whole Blood Glucose [Pending] Height (Feet): 5 Height (Inches): 5.00 Weight (Pounds): 150 Assessment/Plan Problem List: (1) Renal failure (ARF), acute on chronic ICD Codes: N17.9 - Acute kidney failure, unspecified; N18.9 - Chronic kidney disease, unspecified SNOMED: 440458053 (2) DKA (diabetic ketoacidoses) ICD Codes: E11.10 - Type 2 diabetes mellitus with ketoacidosis without coma SNOMED: 160182453, 28193033 (3) COVID-19 virus infection ICD Codes: U07.1 - COVID-19 SNOMED: 690503242 (4) Rhabdomyolysis ICD Codes: M62.82 - Rhabdomyolysis SNOMED: 567023606 (5) Diabetes mellitus out of control ICD Codes: E11.65 - Type 2 diabetes mellitus with hyperglycemia SNOMED: 81664923, 115525861 (6) Abnormal thyroid blood test ICD Codes: R79.89 - Other specified abnormal findings of blood chemistry SNOMED: 750936883, 471130283233451 (7) NSTEMI (non-ST elevated myocardial infarction) ICD Codes: I21.4 - Non-ST elevation (NSTEMI) myocardial infarction SNOMED: 16371324 Status: progressing, unchanged Assessment/Plan: covid + resp insuff weak dehydration no wheezing afebrile no acute events Corey Freitas MD Nov 05, 2020 19:33
--- NOTE | 2020-11-05 19:43 | NUR ---
NURSE NOTES: Received report from Ricardo PALM.The patient is alert and oriented x3 Slovak speaking. He just completed his dialysis with with 2 liters of fluids taken out. The patient is on 5 liters of oxygen via NS with Spo2 of about 93-96%.The patient is presently lying in his bed watching TV.The patient has a R groin Yazan catheter he uses for dialysis that is noted with clean and intact dressing.The IV line is at left wrist 20g running NS @ 75, line is patent and asymptomatic. The bed in low level, call light within easy reach. will continue to monitor as indicated.
[2020-11-05] MEDS: Dyna-Hex 2% Top Sol 2oz TOPIC SCH (20:00)
[2020-11-06] VITALS: BP 126/61
--- NOTE | 2020-11-06 00:51 | NUR ---
NURSE NOTES: Cardizem HCL 60 mg was noit given because the heart rate is 61 which is <65 BPM.The patient is alert and stable
[2020-11-06 04:00] VITALS: BP 134/85
--- NOTE | 2020-11-06 04:21 | NUR ---
The patient remained on oxygen via NC @ 5 liters with Sp02 of 93-96% RA.He was help with turning and repositioning and doesn't appear to be in any active distress at this time and is sleeping comfortable in his P200 mattress.The patient rectal tube was dislodged and he had a bowel movement that was soft. Will continue to monitor as indicated.
[2020-11-06] MEDS: dilTIAZem HCl 60mg tab ORAL SCH ×4 (06:00→18:00)
[2020-11-06] MEDS: NovoLOG Insulin Flexpen SUBQ SCH ×7 (06:30→20:39)
[2020-11-06] MEDS: sitaGLIPtin 25mg tab ORAL SCH (07:03)
--- NOTE | 2020-11-06 07:15 | NUR ---
NURSE NOTES: Received patient in bed. Awake, Alert x1. On 5 L NC. Patient denies pain. IV in the Left FA, infusing IVF as ordered. Bed low and locked, side rails up x3, bed alarm on, call light within reach - unable to return demonstration.
[2020-11-06 08:00] VITALS: BP 143/62
[2020-11-06 08:21] LABS: HEMATOCRIT 29.6 % (42.0-52.0); HEMOGLOBIN 10.2 G/DL (14.2-18.0); MEAN CORPUSCULAR VOLUME 90 FL (80-99); PLATELET COUNT 198 K/UL (150-450); RED BLOOD COUNT 3.28 M/UL (4.70-6.10); RED CELL DISTRIBUTION WIDTH 12.5 % (11.6-14.8); WHITE BLOOD COUNT 11.7 K/UL (4.8-10.8)
[2020-11-06] MEDS: dexAMETHasone 10mg/ml Inj IV SCH (08:30)
[2020-11-06] MEDS: Tamsulosin 0.4mg cap ORAL SCH ×2 (08:30→17:18)
[2020-11-06] MEDS: Docusate 100mg cap ORAL SCH ×2 (08:30→17:18)
[2020-11-06] MEDS: Allopurinol 100mg Tab ORAL SCH (08:30)
[2020-11-06] MEDS: Metoprolol Tartrate 50mg tab ORAL SCH ×3 (08:30→20:40)
[2020-11-06] MEDS: Amiodarone 200mg tab ORAL SCH (08:30)
[2020-11-06] MEDS: methIMAzole 10mg tab ORAL SCH (08:30)
[2020-11-06 08:44] LABS: ALBUMIN 1.6 G/DL (3.4-5.0); ALBUMIN/GLOBULIN RATIO 0.5 (1.0-2.7); BILIRUBIN,TOTAL 0.6 MG/DL (0.2-1.0); CALCIUM 7.7 MG/DL (8.5-10.1); CREATININE 2.9 MG/DL (0.55-1.30); PHOSPHORUS 3.1 MG/DL (2.5-4.9); POTASSIUM 3.5 MMOL/L (3.5-5.1)
[2020-11-06] MEDS: Levemir Flexpen SUBQ SCH (08:47)
[2020-11-06] MEDS: Eliquis 2.5mg tablet ORAL SCH ×2 (08:51→18:00)
--- NOTE | 2020-11-06 09:54 | General Progress Note ---
Subjective ROS Limited/Unobtainable: Yes Allergies: Coded Allergies: No Known Allergies (Unverified , 10/31/20) Subjective events noted interval notes reviewed glucose values stable in COVID isolation Item Value Date Time Bedside Blood Glucose 156 mg/dl H 11/06/20 0847 Bedside Blood Glucose 156 mg/dl H 11/06/20 0630 Bedside Blood Glucose 90 mg/dl 11/05/20 2100 Bedside Blood Glucose 84 mg/dl 11/05/20 1650 Bedside Blood Glucose 154 mg/dl H 11/05/20 1234 Bedside Blood Glucose 161 mg/dl H 11/05/20 0917 Bedside Blood Glucose 161 mg/dl H 11/05/20 0630 Objective Last 24 Hour Vital Signs Date Time Temp Pulse Resp B/P (MAP) Pulse Ox O2 Delivery O2 Flow Rate FiO2 11/06/20 09:00 Nasal Cannula 5.0 11/06/20 08:30 68 143/62 11/06/20 08:00 67 11/06/20 08:00 96.2 68 20 143/62 (89) 93 68 11/06/20 06:00 60 134/85 11/06/20 04:00 98.5 72 18 134/85 (101) 95 72 11/06/20 04:00 60 11/06/20 00:00 98.0 61 18 126/61 (82) 94 0 11/06/20 00:00 61 126/61 11/06/20 00:00 61 11/05/20 21:21 64 136/70 11/05/20 21:02 96.8 73 21 126/71 (89) 94 0 11/05/20 21:00 Nasal Cannula 3.0 11/05/20 20:00 60 11/05/20 20:00 98.5 70 18 128/65 (86) 95 0 11/05/20 19:58 94 Nasal Cannula 4.0 36 11/05/20 16:00 59 11/05/20 16:00 96.8 73 21 126/71 (89) 94 0 11/05/20 12:00 61 11/05/20 12:00 98.7 60 23 124/61 (82) 93 0 Intake and Output 11/05/20 11/06/20 19:00 07:00 Intake Total 1200 ml 805 ml Output Total 350 ml 2000 ml Balance 850 ml -1195 ml Intake Oral 300 ml 130 ml IV Total 900 ml 675 ml Output Urine Total 350 ml Hemodialysis UF 2000 ml # Bowel Movements 3 Laboratory Tests 11/05/20 11:48: POC Whole Blood Glucose [Pending] 11/05/20 21:15: POC Whole Blood Glucose 90 11/06/20 06:33: White Blood Count 11.7H, Red Blood Count 3.28L, Hemoglobin 10.2L, Hematocrit 29.6L, Mean Corpuscular Volume 90, Mean Corpuscular Hemoglobin 31.0, Mean Corpuscular Hemoglobin Concent 34.3, Red Cell Distribution Width 12.5, Platelet Count 198, Mean Platelet Volume 7.2, Neutrophils (%) (Auto) , Lymphocytes (%) (Auto) , Monocytes (%) (Auto) , Eosinophils (%) (Auto) , Basophils (%) (Auto) , Neutrophils % (Manual) [Pending], Lymphocytes % (Manual) [Pending], Platelet Estimate [Pending], Platelet Morphology [Pending], Sodium Level 142, Potassium Level 3.5, Chloride Level 104, Carbon Dioxide Level 30, Anion Gap 8, Blood Urea Nitrogen 43H, Creatinine 2.9H, Estimat Glomerular Filtration Rate 21.3, Glucose Level 172H, Calcium Level 7.7L, Phosphorus Level 3.1, Total Bilirubin 0.6, Aspartate Amino Transf (AST/SGOT) 29, Alanine Aminotransferase (ALT/SGPT) 32, Alkaline Phosphatase 68, C-Reactive Protein, Quantitative [Pending], Pro-B-Type Natriuretic Peptide 713H, Total Protein 4.9L, Albumin 1.6L, Globulin 3.3, A lbumin/Globulin Ratio 0.5L, Vitamin D 25-Hydroxy [Pending], 25-Hydroxy Vitamin D2 [Pending], 25-Hydroxy Vitamin D3 [Pending] Height (Feet): 5 Height (Inches): 5.00 Weight (Pounds): 150 Objective Current Medications Medications (Trade) Dose Ordered Sig/Manasa Route PRN Reason Start Time Stop Time Status Last Admin Dose Admin Acetaminophen (Tylenol) 500 mg Q4H PRN ORAL For Pain 11/01/20 01:00 12/01/20 00:59 11/01/20 18:50 Acetaminophen (Tylenol) 650 mg Q4H PRN RECTAL Temp >100.5 11/01/20 21:30 12/01/20 21:29 Allopurinol (Zyloprim) 200 mg DAILY ORAL 11/01/20 16:00 12/01/20 15:59 11/06/20 08:30 Amiodarone HCl (Cordarone) 400 mg DAILY ORAL 11/05/20 18:30 02/01/21 08:59 11/06/20 08:30 Apixaban (Eliquis) 2.5 mg BID ORAL 11/02/20 18:00 01/31/21 17:59 11/02/20 17:58 Chlorhexidine Gluconate (María Elena-Hex 2%) 1 applic DAILY@2000 TOPIC 11/04/20 20:00 02/02/21 19:59 11/05/20 20:00 Clonidine HCl (Catapres Tab) 0.1 mg Q4H PRN ORAL bp over 160 syst 10/31/20 17:45 01/29/21 17:44 11/01/20 09:20 Dexamethasone Sodium Phosphate (Decadron 10mg/ ml Inj) 6 mg DAILY IV 11/03/20 09:00 11/13/20 08:59 11/06/20 08:30 Dextrose (Dextrose 50%) 25 ml Q30M PRN IV Hypoglycemia 11/01/20 07:15 01/30/21 07:14 Dextrose (Dextrose 50%) 50 ml Q30M PRN IV Hypoglycemia 11/01/20 07:15 01/30/21 07:14 Diltiazem HCl (Cardizem Tab) 60 mg EVERY 6 HOURS ORAL 11/02/20 18:00 12/02/20 17:59 11/05/20 06:26 Docusate Sodium (Colace) 100 mg TWICE A DAY ORAL 10/31/20 18:00 11/30/20 17:59 11/06/20 08:30 Insulin Aspart (NovoLOG) BEFORE MEALS AND HS SUBQ 11/01/20 11:30 01/30/21 11:29 11/06/20 07:04 Insulin Aspart (NovoLOG) 10 units NOVOTIAC SUBQ 11/03/20 11:50 01/30/21 11:49 11/06/20 06:30 Insulin Detemir (Levemir) 24 units DAILY SUBQ 11/01/20 09:00 01/30/21 08:59 11/06/20 08:47 Methimazole (Tapazole) 10 mg DAILY ORAL 11/03/20 09:00 12/03/20 08:59 11/06/20 08:30 Metoprolol Tartrate (Lopressor) 50 mg Q12HR ORAL 11/01/20 21:00 01/30/21 20:59 11/06/20 08:30 Pantoprazole (Protonix) 40 mg BID ORAL 10/31/20 18:00 11/30/20 17:44 11/06/20 08:30 Sitagliptin Phosphate (Januvia) 25 mg ACBREAKFAST ORAL 11/06/20 06:30 12/06/20 06:29 11/06/20 07:03 Sodium Chloride 1,000 ml @ 75 mls/hr [id number] IV 10/31/20 17:45 11/30/20 17:44 11/06/20 08:31 Tamsulosin HCl (Flomax) 0.4 mg BID ORAL 11/03/20 12:00 12/03/20 11:59 11/06/20 08:30 Assessment/Plan Problem List: (1) Abnormal thyroid blood test ICD Codes: R79.89 - Other specified abnormal findings of blood chemistry SNOMED: 060562142, 044688936462020 (2) Diabetes mellitus out of control ICD Codes: E11.65 - Type 2 diabetes mellitus with hyperglycemia SNOMED: 03598397, 061528204 (3) Renal failure (ARF), acute on chronic ICD Codes: N17.9 - Acute kidney failure, unspecified; N18.9 - Chronic kidney disease, unspecified SNOMED: 913640600 (4) COVID-19 virus infection ICD Codes: U07.1 - COVID-19 SNOMED: 177031851 (5) DKA (diabetic ketoacidoses) ICD Codes: E11.10 - Type 2 diabetes mellitus with ketoacidosis without coma SNOMED: 250687546, 82895771 (6) NSTEMI (non-ST elevated myocardial infarction) ICD Codes: I21.4 - Non-ST elevation (NSTEMI) myocardial infarction SNOMED: 63016801 Status: progressing, unchanged Assessment/Plan: continue Levemir 24 units qam reduce Novolog 10 to 8 units ac tid + SSI continue Januvia 25 mg daily continue Tapazole 10 mg daily ATPO, TSI pending Markus Tamez MD Nov 06, 2020 09:54
--- NOTE | 2020-11-06 09:58 | Pulmonology Progress Note ---
Subjective ROS Limited/Unobtainable: Yes Interval Events: none major reported per nursing Constitutional: Denies: fever Gastrointestinal/Abdominal: Reports: diarrhea Allergies: Coded Allergies: No Known Allergies (Unverified , 10/31/20) Objective Last 24 Hour Vital Signs Date Time Temp Pulse Resp B/P (MAP) Pulse Ox O2 Delivery O2 Flow Rate FiO2 11/06/20 09:00 Nasal Cannula 5.0 11/06/20 08:30 68 143/62 11/06/20 08:00 67 11/06/20 08:00 96.2 68 20 143/62 (89) 93 68 11/06/20 06:00 60 134/85 11/06/20 04:00 98.5 72 18 134/85 (101) 95 72 11/06/20 04:00 60 11/06/20 00:00 98.0 61 18 126/61 (82) 94 0 11/06/20 00:00 61 126/61 11/06/20 00:00 61 11/05/20 21:21 64 136/70 11/05/20 21:02 96.8 73 21 126/71 (89) 94 0 11/05/20 21:00 Nasal Cannula 3.0 11/05/20 20:00 60 11/05/20 20:00 98.5 70 18 128/65 (86) 95 0 11/05/20 19:58 94 Nasal Cannula 4.0 36 11/05/20 16:00 59 11/05/20 16:00 96.8 73 21 126/71 (89) 94 0 11/05/20 12:00 61 11/05/20 12:00 98.7 60 23 124/61 (82) 93 0 Intake and Output 11/05/20 11/06/20 19:00 07:00 Intake Total 1200 ml 805 ml Output Total 350 ml 2000 ml Balance 850 ml -1195 ml Intake Oral 300 ml 130 ml IV Total 900 ml 675 ml Output Urine Total 350 ml Hemodialysis UF 2000 ml # Bowel Movements 3 General Appearance: WD/WN, no acute distress HEENT: atraumatic Respiratory: chest wall non-tender Cardiovascular: regular rhythm, tachycardia Abdomen: soft, non tender Laboratory Tests 11/05/20 11:48: POC Whole Blood Glucose [Pending] 11/05/20 21:15: POC Whole Blood Glucose 90 11/06/20 06:33: White Blood Count 11.7H, Red Blood Count 3.28L, Hemoglobin 10.2L, Hematocrit 29.6L, Mean Corpuscular Volume 90, Mean Corpuscular Hemoglobin 31.0, Mean Corpuscular Hemoglobin Concent 34.3, Red Cell Distribution Width 12.5, Platelet Count 198, Mean Platelet Volume 7.2, Neutrophils (%) (Auto) , Lymphocytes (%) (Auto) , Monocytes (%) (Auto) , Eosinophils (%) (Auto) , Basophils (%) (Auto) , Neutrophils % (Manual) [Pending], Lymphocytes % (Manual) [Pending], Platelet Estimate [Pending], Platelet Morphology [Pending], Sodium Level 142, Potassium Level 3.5, Chloride Level 104, Carbon Dioxide Level 30, Anion Gap 8, Blood Urea Nitrogen 43H, Creatinine 2.9H, Estimat Glomerular Filtration Rate 21.3, Glucose Level 172H, Calcium Level 7.7L, Phosphorus Level 3.1, Total Bilirubin 0.6, Aspartate Amino Transf (AST/SGOT) 29, Alanine Aminotransferase (ALT/SGPT) 32, Alkaline Phosphatase 68, C-Reactive Protein, Quantitative [Pending], Pro-B-Type Natriuretic Peptide 713H, Total Protein 4.9L, Albumin 1.6L, Globulin 3.3, Album in/Globulin Ratio 0.5L, Vitamin D 25-Hydroxy [Pending], 25-Hydroxy Vitamin D2 [Pending], 25-Hydroxy Vitamin D3 [Pending] Current Medications Medications (Trade) Dose Ordered Sig/Manasa Route PRN Reason Start Time Stop Time Status Last Admin Dose Admin Acetaminophen (Tylenol) 500 mg Q4H PRN ORAL For Pain 11/01/20 01:00 12/01/20 00:59 11/01/20 18:50 Acetaminophen (Tylenol) 650 mg Q4H PRN RECTAL Temp >100.5 11/01/20 21:30 12/01/20 21:29 Allopurinol (Zyloprim) 200 mg DAILY ORAL 11/01/20 16:00 12/01/20 15:59 11/06/20 08:30 Amiodarone HCl (Cordarone) 400 mg DAILY ORAL 11/05/20 18:30 02/01/21 08:59 11/06/20 08:30 Apixaban (Eliquis) 2.5 mg BID ORAL 11/02/20 18:00 01/31/21 17:59 11/02/20 17:58 Chlorhexidine Gluconate (María Elena-Hex 2%) 1 applic DAILY@2000 TOPIC 11/04/20 20:00 02/02/21 19:59 11/05/20 20:00 Clonidine HCl (Catapres Tab) 0.1 mg Q4H PRN ORAL bp over 160 syst 10/31/20 17:45 01/29/21 17:44 11/01/20 09:20 Dexamethasone Sodium Phosphate (Decadron 10mg/ ml Inj) 6 mg DAILY IV 11/03/20 09:00 11/13/20 08:59 11/06/20 08:30 Dextrose (Dextrose 50%) 25 ml Q30M PRN IV Hypoglycemia 11/01/20 07:15 01/30/21 07:14 Dextrose (Dextrose 50%) 50 ml Q30M PRN IV Hypoglycemia 11/01/20 07:15 01/30/21 07:14 Diltiazem HCl (Cardizem Tab) 60 mg EVERY 6 HOURS ORAL 11/02/20 18:00 12/02/20 17:59 11/05/20 06:26 Docusate Sodium (Colace) 100 mg TWICE A DAY ORAL 10/31/20 18:00 11/30/20 17:59 11/06/20 08:30 Insulin Aspart (NovoLOG) BEFORE MEALS AND HS SUBQ 11/01/20 11:30 01/30/21 11:29 11/06/20 07:04 Insulin Aspart (NovoLOG) 10 units NOVOTIAC SUBQ 11/03/20 11:50 01/30/21 11:49 11/06/20 06:30 Insulin Detemir (Levemir) 24 units DAILY SUBQ 11/01/20 09:00 01/30/21 08:59 11/06/20 08:47 Methimazole (Tapazole) 10 mg DAILY ORAL 11/03/20 09:00 12/03/20 08:59 11/06/20 08:30 Metoprolol Tartrate (Lopressor) 50 mg Q12HR ORAL 11/01/20 21:00 01/30/21 20:59 11/06/20 08:30 Pantoprazole (Protonix) 40 mg BID ORAL 10/31/20 18:00 11/30/20 17:44 11/06/20 08:30 Sitagliptin Phosphate (Januvia) 25 mg ACBREAKFAST ORAL 11/06/20 06:30 12/06/20 06:29 11/06/20 07:03 Sodium Chloride 1,000 ml @ 75 mls/hr [id number] IV 10/31/20 17:45 11/30/20 17:44 11/06/20 08:31 Tamsulosin HCl (Flomax) 0.4 mg BID ORAL 11/03/20 12:00 12/03/20 11:59 11/06/20 08:30 Assessment/Plan Assessment/Plan Assessment/Plan Assessment/Plan 1. Non-ST elevation myocardial infarction. - cardiology following 2. Diabetic ketoacidosis - seen by endocrinology - continue fluids - insulin 3. Atrial flutter with rapid ventricular response. - Continue metoprolol 50 mg b.i.d. 4. COVID positive pneumonia. - Decadron - Remdesiver per ID - Supplemental O2 - saturating 93% well on 5L/ Min 5. Renal failure; nephrology following 6. HTN 7. DVT ppx - Lovenox Above plan was discussed with supervising physician Jose Quintana NP Nov 06, 2020 09:58
[2020-11-06 12:00] VITALS: BP 146/87
--- NOTE | 2020-11-06 13:33 | Surgery Progress Note ---
Surgery Progress Note Subjective Procedure Performed Right femoral temporary hemodialysis catheter insertion Additional Comments leukocytosis stable h/h stable respiratory okay renal function improving comfortable Objective Last 24 Hour Vital Signs Date Time Temp Pulse Resp B/P (MAP) Pulse Ox O2 Delivery O2 Flow Rate FiO2 11/06/20 12:02 75 146/87 11/06/20 12:00 96.8 75 19 146/87 (106) 94 75 11/06/20 09:00 Nasal Cannula 5.0 11/06/20 08:30 68 143/62 11/06/20 08:00 67 11/06/20 08:00 96.2 68 20 143/62 (89) 93 68 11/06/20 06:00 60 134/85 11/06/20 04:00 98.5 72 18 134/85 (101) 95 72 11/06/20 04:00 60 11/06/20 00:00 98.0 61 18 126/61 (82) 94 0 11/06/20 00:00 61 126/61 11/06/20 00:00 61 11/05/20 21:21 64 136/70 11/05/20 21:02 96.8 73 21 126/71 (89) 94 0 11/05/20 21:00 Nasal Cannula 3.0 11/05/20 20:00 60 11/05/20 20:00 98.5 70 18 128/65 (86) 95 0 11/05/20 19:58 94 Nasal Cannula 4.0 36 11/05/20 16:00 59 11/05/20 16:00 96.8 73 21 126/71 (89) 94 0 I&O Intake and Output 11/05/20 11/06/20 19:00 07:00 Intake Total 1200 ml 805 ml Output Total 350 ml 2000 ml Balance 850 ml -1195 ml Intake Oral 300 ml 130 ml IV Total 900 ml 675 ml Output Urine Total 350 ml Hemodialysis UF 2000 ml # Bowel Movements 3 Dressing: saturated Cardiovascular: RSR Respiratory: decreased breath sounds Abdomen: soft, non-tender, present bowel sounds, non-distended Extremities: no edema, no tenderness, no cyanosis Laboratory Tests Test 11/05/20 21:15 11/06/20 06:33 POC Whole Blood Glucose 90 MG/DL (74-106) White Blood Count 11.7 K/UL (4.8-10.8) H Red Blood Count 3.28 M/UL (4.70-6.10) L Hemoglobin 10.2 G/DL (14.2-18.0) L Hematocrit 29.6 % (42.0-52.0) L Mean Corpuscular Volume 90 FL (80-99) Mean Corpuscular Hemoglobin 31.0 PG (27.0-31.0) Mean Corpuscular Hemoglobin Concent 34.3 G/DL (32.0-36.0) Red Cell Distribution Width 12.5 % (11.6-14.8) Platelet Count 198 K/UL (150-450) Mean Platelet Volume 7.2 FL (6.5-10.1) Neutrophils (%) (Auto) % (45.0-75.0) Lymphocytes (%) (Auto) % (20.0-45.0) Monocytes (%) (Auto) % (1.0-10.0) Eosinophils (%) (Auto) % (0.0-3.0) Basophils (%) (Auto) % (0.0-2.0) Differential Total Cells Counted 100 Neutrophils % (Manual) 90 % (45-75) H Lymphocytes % (Manual) 4 % (20-45) L Monocytes % (Manual) 6 % (1-10) Eosinophils % (Manual) 0 % (0-3) Basophils % (Manual) 0 % (0-2) Band Neutrophils 0 % (0-8) Platelet Estimate Adequate Platelet Morphology Normal Hypochromasia 1+ Sodium Level 142 MMOL/L (136-145) Potassium Level 3.5 MMOL/L (3.5-5.1) Chloride Level 104 MMOL/L (98-107) Carbon Dioxide Level 30 MMOL/L (21-32) Anion Gap 8 mmol/L (5-15) Blood Urea Nitrogen 43 mg/dL (7-18) H Creatinine 2.9 MG/DL (0.55-1.30) H Estimat Glomerular Filtration Rate 21.3 mL/min (>60) Glucose Level 172 MG/DL (74-106) H Calcium Level 7.7 MG/DL (8.5-10.1) L Phosphorus Level 3.1 MG/DL (2.5-4.9) Total Bilirubin 0.6 MG/DL (0.2-1.0) Aspartate Amino Transf (AST/SGOT) 29 U/L (15-37) Alanine Aminotransferase (ALT/SGPT) 32 U/L (12-78) Alkaline Phosphatase 68 U/L (46-116) C-Reactive Protein, Quantitative Pending Pro-B-Type Natriuretic Peptide 713 pg/mL (0-125) H Total Protein 4.9 G/DL (6.4-8.2) L Albumin 1.6 G/DL (3.4-5.0) L Globulin 3.3 g/dL Albumin/Globulin Ratio 0.5 (1.0-2.7) L Vitamin D 25-Hydroxy Pending 25-Hydroxy Vitamin D2 Pending 25-Hydroxy Vitamin D3 Pending Plan Problems: (1) DKA (diabetic ketoacidoses) (2) Renal failure (ARF), acute on chronic (3) COVID-19 virus infection Assessment & Plan: 75-year-old male Covid positive renal insufficiency recently had temporary dialysis catheter placement develop leukocytosis soon after. Vitals noted. Exam stable. Catheter was evaluated no acute active inflammatory or infectious process identified. Catheter is clean dry intact. The dressings are not saturated. There is no active bleeding identified. There is no signs of active infection. Leukocytosis anterior collated to medications currently given for COVID-19 infection. Will monitor closely to ensure no active development of infection or related to catheter placement. Thank you for let me participate patient's care will follow with recommendations trend leukocytosis cont dressings cont care plan as noted cont HD trend renal function (4) Rhabdomyolysis (5) Diabetes mellitus out of control (6) Abnormal thyroid blood test (7) NSTEMI (non-ST elevated myocardial infarction) Norberto Steele Nov 06, 2020 13:33
--- NOTE | 2020-11-06 15:23 | Nephrology Progress Note ---
Assessment/Plan Problem List: (1) Renal failure (ARF), acute on chronic (2) DKA (diabetic ketoacidoses) (3) COVID-19 virus infection (4) Rhabdomyolysis (5) Abnormal thyroid blood test (6) NSTEMI (non-ST elevated myocardial infarction) Assessment 75-year-old [place] male Covid positive Acute renal failure, most likely superimposed on chronic kidney disease Diabetes mellitus, presents with severe hyperglycemia and DKA History of hypertension Plan November 06: Labs reviewed. Blood pressure stable. Medication list reviewed. Dialysis as needed. November 05: Due for dialysis today. Labs are reviewed. Blood pressure is stable. Continue to monitor renal parameters. November 04: Patient was dialyzed yesterday. 1 L ultrafiltrated. Labs reviewed. Renal parameters stable. Will attempt dialysis again tomorrow. Medication list reviewed. November 03: Labs reviewed. Serum creatinine rising. Patient has hematuria. Patient on Eliquis. Will arrange for placement of dialysis catheter and attempt to dialyze. Will start Flomax since the patient could not have a Anand cat heter. Continue to monitor renal parameters. Continue per consultants. Discussed with RN. Consent for placement of nontunneled catheter ordered. Patient is also on Tapazole for high thyroid hormone. CPK is lowering. November 02: Labs reviewed. Serum creatinine up to 4. In S DU now. On Cardizem drip. Measured creatinine clearance . Patient may lead towards dialysis. Continue to monitor renal parameters. November 01: Renal parameters improving. Blood sugar is improving. Continue to monitor electrolytes renal parameters and urine output. Aim to control blood sugar and blood pressure. Avoid nephrotoxic's. Monitor CPK as it is elevated. Previously: Anand catheter Blood sugar control Slow hydration Monitor renal parameters Kidney ultrasound no hydronephrosis 2D echocardiogram ejection fraction 60 to 65%. Per orders Subjective ROS Limited/Unobtainable: No Constitutional: Reports: malaise Objective Objective Last 24 Hour Vital Signs Date Time Temp Pulse Resp B/P (MAP) Pulse Ox O2 Delivery O2 Flow Rate FiO2 11/06/20 12:02 75 146/87 11/06/20 12:00 96.8 75 19 146/87 (106) 94 75 11/06/20 12:00 75 11/06/20 09:00 Nasal Cannula 5.0 11/06/20 08:30 68 143/62 11/06/20 08:00 67 1/10/21 08:00 96.2 68 20 143/62 (89) 93 68 11/06/20 06:00 60 134/85 11/06/20 04:00 98.5 72 18 134/85 (101) 95 72 11/06/20 04:00 60 11/06/20 00:00 98.0 61 18 126/61 (82) 94 0 11/06/20 00:00 61 126/61 11/06/20 00:00 61 11/05/20 21:21 64 136/70 11/05/20 21:02 96.8 73 21 126/71 (89) 94 0 11/05/20 21:00 Nasal Cannula 3.0 11/05/20 20:00 60 11/05/20 20:00 98.5 70 18 128/65 (86) 95 0 11/05/20 19:58 94 Nasal Cannula 4.0 36 11/05/20 16:00 59 11/05/20 16:00 96.8 73 21 126/71 (89) 94 0 Intake and Output 11/05/20 11/06/20 19:00 07:00 Intake Total 1200 ml 805 ml Output Total 350 ml 2000 ml Balance 850 ml -1195 ml Intake Oral 300 ml 130 ml IV Total 900 ml 675 ml Output Urine Total 350 ml Hemodialysis UF 2000 ml # Bowel Movements 3 Current Medications Medications (Trade) Dose Ordered Sig/Manasa Route PRN Reason Start Time Stop Time Status Last Admin Dose Admin Acetaminophen (Tylenol) 500 mg Q4H PRN ORAL For Pain 11/01/20 01:00 12/01/20 00:59 11/01/20 18:50 Acetaminophen (Tylenol) 650 mg Q4H PRN RECTAL Temp >100.5 11/01/20 21:30 12/01/20 21:29 Allopurinol (Zyloprim) 200 mg DAILY ORAL 11/01/20 16:00 12/01/20 15:59 11/06/20 08:30 Amiodarone HCl (Cordarone) 400 mg DAILY ORAL 11/05/20 18:30 02/01/21 08:59 11/06/20 08:30 Apixaban (Eliquis) 2.5 mg BID ORAL 11/02/20 18:00 01/31/21 17:59 11/02/20 17:58 Chlorhexidine Gluconate (María Elena-Hex 2%) 1 applic DAILY@2000 TOPIC 11/04/20 20:00 02/02/21 19:59 11/05/20 20:00 Clonidine HCl (Catapres Tab) 0.1 mg Q4H PRN ORAL bp over 160 syst 10/31/20 17:45 01/29/21 17:44 11/01/20 09:20 Dexamethasone Sodium Phosphate (Decadron 10mg/ ml Inj) 6 mg DAILY IV 11/03/20 09:00 11/13/20 08:59 11/06/20 08:30 Dextrose (Dextrose 50%) 25 ml Q30M PRN IV Hypoglycemia 11/01/20 07:15 01/30/21 07:14 Dextrose (Dextrose 50%) 50 ml Q30M PRN IV Hypoglycemia 11/01/20 07:15 01/30/21 07:14 Diltiazem HCl (Cardizem Tab) 60 mg EVERY 6 HOURS ORAL 11/02/20 18:00 12/02/20 17:59 11/06/20 12:02 Docusate Sodium (Colace) 100 mg TWICE A DAY ORAL 10/31/20 18:00 11/30/20 17:59 11/06/20 08:30 Insulin Aspart (NovoLOG) BEFORE MEALS AND HS SUBQ 11/01/20 11:30 01/30/21 11:29 11/06/20 12:00 Insulin Aspart (NovoLOG) 8 units NOVOTIAC SUBQ 11/06/20 11:50 01/30/21 11:49 11/06/20 12:01 Insulin Detemir (Levemir) 24 units DAILY SUBQ 11/01/20 09:00 01/30/21 08:59 11/06/20 08:47 Methimazole (Tapazole) 10 mg DAILY ORAL 11/03/20 09:00 12/03/20 08:59 11/06/20 08:30 Metoprolol Tartrate (Lopressor) 50 mg Q12HR ORAL 11/01/20 21:00 01/30/21 20:59 11/06/20 08:30 Pantoprazole (Protonix) 40 mg BID ORAL 10/31/20 18:00 11/30/20 17:44 11/06/20 08:30 Sitagliptin Phosphate (Januvia) 25 mg ACBREAKFAST ORAL 11/06/20 06:30 12/06/20 06:29 11/06/20 07:03 Sodium Chloride 1,000 ml @ 75 mls/hr [id number] IV 10/31/20 17:45 11/30/20 17:44 11/06/20 08:31 Tamsulosin HCl (Flomax) 0.4 mg BID ORAL 11/03/20 12:00 12/03/20 11:59 11/06/20 08:30 Laboratory Tests 11/05/20 21:15: POC Whole Blood Glucose 90 11/06/20 06:33: White Blood Count 11.7H, Red Blood Count 3.28L, Hemoglobin 10.2L, Hematocrit 29.6L, Mean Corpuscular Volume 90, Mean Corpuscular Hemoglobin 31.0, Mean Corpuscular Hemoglobin Concent 34.3, Red Cell Distribution Width 12.5, Platelet Count 198, Mean Platelet Volume 7.2, Neutrophils (%) (Auto) , Lymphocytes (%) (Auto) , Monocytes (%) (Auto) , Eosinophils (%) (Auto) , Basophils (%) (Auto) , Differential Total Cells Counted 100, Neutrophils % (Manual) 90H, Lymphocytes % (Manual) 4L, Monocytes % (Manual) 6, Eosinophils % (Manual) 0, Basophils % (Manual) 0, Band Neutrophils 0, Platelet Estimate Adequate, Platelet Morphology Normal, Hypochromasia 1+, Sodium Level 142, Potassium Level 3.5, Chloride Level 104, Carbon Dioxide Level 30, Anion Gap 8, Blood Urea Nitrogen 43H, Creatinine 2.9H, Estimat Glomerular Filtration Rate 21.3, Glucose Level 172H, Calcium Level 7.7L, Phosphorus Level 3.1, Total Bilirubin 0.6, Aspartate Amino Transf (AST/SGOT) 29, Alanine Aminotransferase (ALT/SGPT) 32, Alkaline Phosphatase 68, C-Reactive Protein, Quantitative [Pending], Pro-B-Type Natriuretic Peptide 713H, Total Protein 4.9L, Albumin 1.6L, Globulin 3.3, Albumin/Globulin Ratio 0.5L, Vitamin D 25-Hydroxy [Pending], 25-Hydroxy Vitamin D2 [Pending], 25-Hydroxy [place] min D3 [Pending] Height (Feet): 5 Height (Inches): 5.00 Weight (Pounds): 150 Cardiovascular: normal rate Respiratory/Chest: decreased breath sounds Abdomen: distended Garth Buckley MD Nov 06, 2020 15:23
[2020-11-06 16:00] VITALS: BP 140/87
--- NOTE | 2020-11-06 17:56 | General Progress Note ---
Subjective ROS Limited/Unobtainable: Yes Allergies: Coded Allergies: No Known Allergies (Unverified , 10/31/20) Objective Last 24 Hour Vital Signs Date Time Temp Pulse Resp B/P (MAP) Pulse Ox O2 Delivery O2 Flow Rate FiO2 11/06/20 12:02 75 146/87 11/06/20 12:00 96.8 75 19 146/87 (106) 94 75 11/06/20 12:00 75 11/06/20 09:00 95 Nasal Cannula 4.0 36 11/06/20 09:00 Nasal Cannula 5.0 11/06/20 08:30 68 143/62 11/06/20 08:00 67 11/06/20 08:00 96.2 68 20 143/62 (89) 93 68 11/06/20 06:00 60 134/85 11/06/20 04:00 98.5 72 18 134/85 (101) 95 72 11/06/20 04:00 60 11/06/20 00:00 98.0 61 18 126/61 (82) 94 0 11/06/20 00:00 61 126/61 11/06/20 00:00 61 11/05/20 21:21 64 136/70 11/05/20 21:02 96.8 73 21 126/71 (89) 94 0 11/05/20 21:00 Nasal Cannula 3.0 11/05/20 20:00 60 11/05/20 20:00 98.5 70 18 128/65 (86) 95 0 11/05/20 19:58 94 Nasal Cannula 4.0 36 Intake and Output 11/05/20 11/06/20 19:00 07:00 Intake Total 1200 ml 805 ml Output Total 350 ml 2000 ml Balance 850 ml -1195 ml Intake Oral 300 ml 130 ml IV Total 900 ml 675 ml Output Urine Total 350 ml Hemodialysis UF 2000 ml # Bowel Movements 3 Laboratory Tests 11/05/20 21:15: POC Whole Blood Glucose 90 11/06/20 06:33: White Blood Count 11.7H, Red Blood Count 3.28L, Hemoglobin 10.2L, Hematocrit 29.6L, Mean Corpuscular Volume 90, Mean Corpuscular Hemoglobin 31.0, Mean Corpuscular Hemoglobin Concent 34.3, Red Cell Distribution Width 12.5, Platelet Count 198, Mean Platelet Volume 7.2, Neutrophils (%) (Auto) , Lymphocytes (%) (Auto) , Monocytes (%) (Auto) , Eosinophils (%) (Auto) , Basophils (%) (Auto) , Differential Total Cells Counted 100, Neutrophils % (Manual) 90H, Lymphocytes % (Manual) 4L, Monocytes % (Manual) 6, Eosinophils % (Manual) 0, Basophils % (Manual) 0, Band Neutrophils 0, Platelet Estimate Adequate, Platelet Morphology Normal, Hypochromasia 1+, Sodium Level 142, Potassium Level 3.5, Chloride Level 104, Carbon Dioxide Level 30, Anion Gap 8, Blood Urea Nitrogen 43H, Creatinine 2.9H, Estimat Glomerular Filtration Rate 21.3, Glucose Level 172H, Calcium Level 7.7L, Phosphorus Level 3.1, Total Bilirubin 0.6, Aspartate Amino Transf (AST/SGOT) 29, Alanine Aminotransferase (ALT/SGPT) 32, Alkaline Phosphatase 68, C-Reactive Protein, Quantitative [Pending], Pro-B-Type Natriuretic Peptide 713H, Total Protein 4.9L, Albumin 1.6L, Globulin 3.3, Albumin/Globulin Ratio 0.5L, Vitamin D 25-Hydroxy [Pending], 25-Hydroxy Vitamin D2 [Pending], 25-Hydroxy Vitamin D3 [Pending] Height (Feet): 5 Height (Inches): 5.00 Weight (Pounds): 150 Assessment/Plan Problem List: (1) Renal failure (ARF), acute on chronic ICD Codes: N17.9 - Acute kidney failure, unspecified; N18.9 - Chronic kidney disease, unspecified SNOMED: 452015960 (2) DKA (diabetic ketoacidoses) ICD Codes: E11.10 - Type 2 diabetes mellitus with ketoacidosis without coma SNOMED: 891804648, 77425536 (3) COVID-19 virus infection ICD Codes: U07.1 - COVID-19 SNOMED: 992268364 (4) Rhabdomyolysis ICD Codes: M62.82 - Rhabdomyolysis SNOMED: 243198880 (5) Diabetes mellitus out of control ICD Codes: E11.65 - Type 2 diabetes mellitus with hyperglycemia SNOMED: 62061083, 820101034 (6) Abnormal thyroid blood test ICD Codes: R79.89 - Other specified abnormal findings of blood chemistry SNOMED: 748825261, 661947019058757 (7) NSTEMI (non-ST elevated myocardial infarction) ICD Codes: I21.4 - Non-ST elevation (NSTEMI) myocardial infarction SNOMED: 87162829 Status: progressing, unchanged Assessment/Plan: covid + dka resolved sugar is improving afebrile rhabdomyosis fluid per Corey Castillo MD Nov 06, 2020 17:56
--- NOTE | 2020-11-06 19:33 | NUR ---
NURSE HAND-OFF REPORT: Important Events on Shift:[BM] Patient Status: [FULL CODE/stable] Diet: [renal puree] Pending Orders: [] Pending Results/Labs:[] Pending MD notification:[] Latest Vital Signs: Temperature 98.1 , Pulse 62 , B/P 140 /87 , Respiratory Rate 21 , O2 SAT 95 , Nasal Cannula, O2 Flow Rate 4.0 . Vital Sign Comment: [] EKG Rhythm: Sinus Rhythm Rhythm change?: N MD Notified?: Amari MCQUEEN MD Response: Message left await call Latest Bhat Fall Score: 60 Fall Risk: High Risk Safety Measures: Call light Within Reach, Bed Alarm Zone 1, Side Rails Side Rails x3, Bed position Low and Locked. Fall Precautions: Yellow Socks Report given to [Matilde RN].
--- NOTE | 2020-11-06 19:35 | NUR ---
NURSE NOTES: Received patient in bed. Awake, Alert x1. On 3 L NC, which pt had removed, replaced, satting well. Patient denies pain. IV in the RAC. infusing IVF NS at 75 ml/h. Bed in lowest and locked position, side rails up x3, bed alarm on zone 2, call light within reach. Pt is very fidgety.
[2020-11-06 20:00] VITALS: BP 116/59
[2020-11-06] MEDS: Dyna-Hex 2% Top Sol 2oz TOPIC SCH (20:26)
--- NOTE | 2020-11-06 21:00 | NUR ---
NURSE NOTES: Talked with Dr Singh, added by Dr Soto as a psych consult as pt was climbing out of bed, ( has hx of fall on 11/01). obtained order for restraints and haldol IM, benadryl IV, will admin and carry out.
[2020-11-06] MEDS ORDERED: Haloperidol 5mg/ml Inj IM SCH (21:30)
[2020-11-06] MEDS ORDERED: DiphenhydrAMINE 50mg/ml Inj IVP SCH (21:30)
--- NOTE | 2020-11-06 22:00 | NUR ---
NURSE NOTES: Pt has had multiple >3 watery yellow stools, per protocol sent specimen to lab for c-diff
[2020-11-07] VITALS: BP 137/63
[2020-11-07 04:00] VITALS: BP 146/66
[2020-11-07] MEDS: Haloperidol 5mg/ml Inj IM PRN ×2 (04:08→21:39)
[2020-11-07] MEDS: dilTIAZem HCl 60mg tab ORAL SCH ×2 (05:11)
[2020-11-07] MEDS: sitaGLIPtin 25mg tab ORAL SCH (05:12)
[2020-11-07] MEDS: NovoLOG Insulin Flexpen SUBQ SCH ×7 (06:30→21:00)
--- NOTE | 2020-11-07 06:49 | General Progress Note ---
Subjective ROS Limited/Unobtainable: Yes Allergies: Coded Allergies: No Known Allergies (Unverified , 10/31/20) Subjective events noted interval notes reviewed glucose values stable in COVID isolation Item Value Date Time Bedside Blood Glucose 108 mg/dl 11/07/20 0625 Bedside Blood Glucose 110 mg/dl 11/06/20 2100 Bedside Blood Glucose 231 mg/dl H 11/06/20 1718 Bedside Blood Glucose 230 mg/dl H 11/06/20 1201 Bedside Blood Glucose 156 mg/dl H 11/06/20 0847 Bedside Blood Glucose 156 mg/dl H 11/06/20 0630 Objective Last 24 Hour Vital Signs Date Time Temp Pulse Resp B/P (MAP) Pulse Ox O2 Delivery O2 Flow Rate FiO2 11/07/20 05:11 72 146/66 11/07/20 04:00 75 11/07/20 04:00 97.2 67 17 146/66 (92) 93 67 11/07/20 00:00 73 120/56 11/07/20 00:00 97.2 73 18 137/63 (87) 93 73 11/06/20 23:59 72 11/06/20 21:00 Nasal Cannula 3.0 11/06/20 20:40 64 116/59 11/06/20 20:19 99 Nasal Cannula 4.0 36 11/06/20 20:00 97.0 64 20 116/59 (78) 100 64 11/06/20 20:00 64 11/06/20 18:00 62 11/06/20 16:00 98.1 61 21 140/87 (104) 95 61 11/06/20 16:00 64 11/06/20 12:02 75 146/87 11/06/20 12:00 96.8 75 19 146/87 (106) 94 75 11/06/20 12:00 75 11/06/20 09:00 95 Nasal Cannula 4.0 36 11/06/20 09:00 Nasal Cannula 5.0 11/06/20 08:30 68 143/62 11/06/20 08:00 67 11/06/20 08:00 96.2 68 20 143/62 (89) 93 68 Intake and Output 11/06/20 11/07/20 19:00 07:00 Intake Total 945 ml Output Total 1200 ml Balance -255 ml Intake Oral 120 ml IV Total 825 ml Output Urine Total 1200 ml # Voids 3 1 # Bowel Movements 1 Laboratory Tests 11/06/20 20:29: POC Whole Blood Glucose 110H 11/07/20 05:14: POC Whole Blood Glucose 108H Height (Feet): 5 Height (Inches): 5.00 Weight (Pounds): 150 Objective Current Medications Medications (Trade) Dose Ordered Sig/Manasa Route PRN Reason Start Time Stop Time Status Last Admin Dose Admin Acetaminophen (Tylenol) 500 mg Q4H PRN ORAL For Pain 11/01/20 01:00 12/01/20 00:59 11/01/20 18:50 Acetaminophen (Tylenol) 650 mg Q4H PRN RECTAL Temp >100.5 11/01/20 21:30 12/01/20 21:29 Allopurinol (Zyloprim) 200 mg DAILY ORAL 11/01/20 16:00 12/01/20 15:59 11/06/20 08:30 Amiodarone HCl (Cordarone) 400 mg DAILY ORAL 11/05/20 18:30 02/01/21 08:59 11/06/20 08:30 Apixaban (Eliquis) 2.5 mg BID ORAL 11/02/20 18:00 01/31/21 17:59 11/02/20 17:58 Chlorhexidine Gluconate (María Elena-Hex 2%) 1 applic DAILY@1999 TOPIC 11/04/20 20:00 02/02/21 19:59 11/06/20 20:26 Clonidine HCl (Catapres Tab) 0.1 mg Q4H PRN ORAL bp over 160 syst 10/31/20 17:45 01/29/21 17:44 11/01/20 09:20 Dexamethasone Sodium Phosphate (Decadron 10mg/ ml Inj) 6 mg DAILY IV 11/03/20 09:00 11/13/20 08:59 11/06/20 08:30 Dextrose (Dextrose 50%) 25 ml Q30M PRN IV Hypoglycemia 11/01/20 07:15 01/30/21 07:14 Dextrose (Dextrose 50%) 50 ml Q30M PRN IV Hypoglycemia 11/01/20 07:15 01/30/21 07:14 Diltiazem HCl (Cardizem Tab) 60 mg EVERY 6 HOURS ORAL 11/02/20 18:00 12/02/20 17:59 11/07/20 05:11 Docusate Sodium (Colace) 100 mg TWICE A DAY ORAL 10/31/20 18:00 11/30/20 17:59 11/06/20 17:18 Haloperidol Lactate (Haldol) 5 mg Q6H PRN IM Agitation 11/06/20 21:30 12/21/20 21:29 11/07/20 04:08 Insulin Aspart (NovoLOG) BEFORE MEALS AND HS SUBQ 11/01/20 11:30 01/30/21 11:29 11/06/20 12:00 Insulin Aspart (NovoLOG) 8 units NOVOTIAC SUBQ 11/06/20 11:50 01/30/21 11:49 11/06/20 17:18 Insulin Detemir (Levemir) 24 units DAILY SUBQ 11/01/20 09:00 01/30/21 08:59 11/06/20 08:47 Methimazole (Tapazole) 10 mg DAILY ORAL 11/03/20 09:00 12/03/20 08:59 11/06/20 08:30 Metoprolol Tartrate (Lopressor) 50 mg Q12HR ORAL 11/01/20 21:00 01/30/21 20:59 11/06/20 08:30 Pantoprazole (Protonix) 40 mg BID ORAL 10/31/20 18:00 11/30/20 17:44 11/06/20 17:18 Sitagliptin Phosphate (Januvia) 25 mg ACBREAKFAST ORAL 11/06/20 06:30 12/06/20 06:29 11/07/20 05:12 Sodium Chloride 1,000 ml @ 75 mls/hr [id number] IV 10/31/20 17:45 11/30/20 17:44 11/06/20 20:27 Tamsulosin HCl (Flomax) 0.4 mg BID ORAL 11/03/20 12:00 12/03/20 11:59 11/06/20 17:18 Assessment/Plan Problem List: (1) Abnormal thyroid blood test ICD Codes: R79.89 - Other specified abnormal findings of blood chemistry SNOMED: 411531150, 108492243080562 (2) Diabetes mellitus out of control ICD Codes: E11.65 - Type 2 diabetes mellitus with hyperglycemia SNOMED: 07767882, 618596867 (3) Renal failure (ARF), acute on chronic ICD Codes: N17.9 - Acute kidney failure, unspecified; N18.9 - Chronic kidney disease, unspecified SNOMED: 429006643 (4) COVID-19 virus infection ICD Codes: U07.1 - COVID-19 SNOMED: 262766680 (5) DKA (diabetic ketoacidoses) ICD Codes: E11.10 - Type 2 diabetes mellitus with ketoacidosis without coma SNOMED: 092634776, 28160462 (6) NSTEMI (non-ST elevated myocardial infarction) ICD Codes: I21.4 - Non-ST elevation (NSTEMI) myocardial infarction SNOMED: 81604642 Status: progressing, unchanged Assessment/Plan: continue Levemir 24 units qam continue Novolog 8 units ac tid + SSI continue Januvia 25 mg daily continue Tapazole 10 mg daily ATPO, TSI pending Markus Tamez MD Nov 07, 2020 06:49
--- NOTE | 2020-11-07 07:52 | NUR ---
NURSE HAND-OFF REPORT: Important Events on Shift:[BM x3 incontinent, yellowish green loose, sent stool for cdiff- very very high fall risk, climbing out of bed, on non behavioral restraints bilat wrist soft Patient Status: [FULL CODE Diet: [renal puree Latest Vital Signs: Temperature 98.1 , Pulse 62 , B/P 140 /87 , Respiratory Rate 21 , O2 SAT 95 , Nasal Cannula, O2 Flow Rate 4.0 . Vital Sign Comment: [] Latest Bhat Fall Score: 60 Fall Risk: High Risk Safety Measures: Call light Within Reach, Bed Alarm Zone 1, Side Rails Side Rails x3, Bed position Low and Locked. Fall Precautions: Yellow Socks Report given to ARPITA Andrew
[2020-11-07 08:00] VITALS: BP 141/67
--- NOTE | 2020-11-07 08:30 | NUR ---
NURSE NOTES: Patient seen in bed in low fowlers position asleep with no acute signs of distress. The patient has a right AC 22G IV infusing NS @75cc that is patent clean and intact. The patients is receiving oxygen via 3L nasal cannula and is saturation within normal limits.The patients bed is in lowest position, locked, side rails x3, bed alarm in zone 1 and call light within reach.
[2020-11-07 08:37] LABS: HEMATOCRIT 31.4 % (42.0-52.0); HEMOGLOBIN 10.5 G/DL (14.2-18.0); MEAN CORPUSCULAR VOLUME 91 FL (80-99); PLATELET COUNT 245 K/UL (150-450); RED BLOOD COUNT 3.44 M/UL (4.70-6.10); RED CELL DISTRIBUTION WIDTH 12.6 % (11.6-14.8); WHITE BLOOD COUNT 14.1 K/UL (4.8-10.8)
[2020-11-07 08:38] LABS: LYMPHOCYTES % (AUTO) 6.9 % (20.0-45.0)
[2020-11-07 08:39] LABS: BASOPHILS % (AUTO) 1.1 % (0.0-2.0)
[2020-11-07] MEDS: dexAMETHasone 10mg/ml Inj IV SCH (08:50)
[2020-11-07] MEDS: Tamsulosin 0.4mg cap ORAL SCH ×2 (08:51→17:23)
[2020-11-07] MEDS: methIMAzole 10mg tab ORAL SCH (08:51)
[2020-11-07] MEDS: Allopurinol 100mg Tab ORAL SCH (08:51)
[2020-11-07] MEDS: Docusate 100mg cap ORAL SCH ×2 (08:52→17:23)
[2020-11-07] MEDS: Metoprolol Tartrate 50mg tab ORAL SCH ×2 (08:53→21:00)
[2020-11-07] MEDS: Amiodarone 200mg tab ORAL SCH (08:53)
[2020-11-07] MEDS: Eliquis 2.5mg tablet ORAL SCH (08:54)
[2020-11-07] MEDS: Levemir Flexpen SUBQ SCH (08:56)
[2020-11-07 09:22] LABS: ALBUMIN 1.9 G/DL (3.4-5.0); ALBUMIN/GLOBULIN RATIO 0.5 (1.0-2.7); BILIRUBIN,TOTAL 0.6 MG/DL (0.2-1.0); CALCIUM 7.5 MG/DL (8.5-10.1); CREATININE 3.5 MG/DL (0.55-1.30); PHOSPHORUS 3.5 MG/DL (2.5-4.9); POTASSIUM 3.1 MMOL/L (3.5-5.1)
--- NOTE | 2020-11-07 09:50 | NUR ---
Rn [employer] SI: COVID PNA, DKA, Atrial flutter with RVR, ARF T-97.2 (ax), HR 67, RR 17, BP 146/66, O2 sat 93% O2 3L NC WBC 14.1, BUN 51, creatinine 3.5 Cxray bilateral infiltrates, likely multifocal pneumonia IS: Dexamethasone IV QD Tapazole PO QD Eliquis PO BID Flomax PO Tele Status
--- NOTE | 2020-11-07 10:02 | Cardiac Electrophysiology PN ---
Assessment/Plan Assessment/Plan 1. NSTEMI with troponin of 0.25 and 0.35 in this patient with DKA as well as atrial flutter with rapid ventricular response. On metoprolol 50 mg b.i.d. EF 65% 2. Atrial flutter with RVR On metoprolol 50 mg bid, Cardizem 60 po q 6 hr and Amiodarone 400 po biddaily Change Cardizem to 90 bid Eliquis held for hematuria 3. Diabetic ketoacidosis with glucose of more than 1000. 4. Accelerated hypertension. On Lopressor 50 bid and Cardizem 90 bid 5. COVID positive pneumonia. 6. Acute Renal failure in the setting of total CK of 1900, maybe rhabdomyolysis- induced renal failure. On HD via RFV Yazan by Dr. Ina ROTHMAN RN Subjective Subjective Had RFV Yazan catheter placement and HD in covid isolation. On 3 liter NC. In SR on Amio, Cardizem and metoprolol. Off Eliquis due to hematuria Objective Last 24 Hour Vital Signs Date Time Temp Pulse Resp B/P (MAP) Pulse Ox O2 Delivery O2 Flow Rate FiO2 11/07/20 08:53 82 141/67 11/07/20 05:11 72 146/66 11/07/20 04:00 75 11/07/20 04:00 97.2 67 17 146/66 (92) 93 67 11/07/20 00:00 73 120/56 11/07/20 00:00 97.2 73 18 137/63 (87) 93 73 11/06/20 23:59 72 11/06/20 21:01 Nasal Cannula 3.0 11/06/20 20:40 64 116/59 11/06/20 20:19 99 Nasal Cannula 4.0 36 11/06/20 20:00 97.0 64 20 116/59 (78) 100 64 11/06/20 20:00 64 11/06/20 18:00 62 11/06/20 16:00 98.1 61 21 140/87 (104) 95 61 11/06/20 16:00 64 11/06/20 12:02 75 146/87 11/06/20 12:00 96.8 75 19 146/87 (106) 94 75 11/06/20 12:00 75 Intake and Output 11/06/20 11/07/20 19:00 07:00 Intake Total 945 ml Output Total 1200 ml Balance -255 ml Intake Oral 120 ml IV Total 825 ml Output Urine Total 1200 ml # Voids 3 1 # Bowel Movements 4 Laboratory Tests Test 11/06/20 20:29 11/07/20 05:14 11/07/20 07:24 11/07/20 07:39 POC Whole Blood Glucose 110 MG/DL (74-106) H 108 MG/DL (74-106) H 197 MG/DL (74-106) H White Blood Count 14.1 K/UL (4.8-10.8) H Red Blood Count 3.44 M/UL (4.70-6.10) L Hemoglobin 10.5 G/DL (14.2-18.0) L Hematocrit 31.4 % (42.0-52.0) L Mean Corpuscular Volume 91 FL (80-99) Mean Corpuscular Hemoglobin 30.5 PG (27.0-31.0) Mean Corpuscular Hemoglobin Concent 33.5 G/DL (32.0-36.0) Red Cell Distribution Width 12.6 % (11.6-14.8) Platelet Count 245 K/UL (150-450) Mean Platelet Volume 6.9 FL (6.5-10.1) Neutrophils (%) (Auto) 85.0 % (45.0-75.0) H Lymphocytes (%) (Auto) 6.9 % (20.0-45.0) L Monocytes (%) (Auto) 7.0 % (1.0-10.0) Eosinophils (%) (Auto) 0.0 % (0.0-3.0) Basophils (%) (Auto) 1.1 % (0.0-2.0) Sodium Level 143 MMOL/L (136-145) Potassium Level 3.1 MMOL/L (3.5-5.1) L Chloride Level 106 MMOL/L (98-107) Carbon Dioxide Level 27 MMOL/L (21-32) Anion Gap 10 mmol/L (5-15) Blood Urea Nitrogen 51 mg/dL (7-18) H Creatinine 3.5 MG/DL (0.55-1.30) H Estimat Glomerular Filtration Rate 17.1 mL/min (>60) Glucose Level 152 MG/DL (74-106) H Calcium Level 7.5 MG/DL (8.5-10.1) L Phosphorus Level 3.5 MG/DL (2.5-4.9) Total Bilirubin 0.6 MG/DL (0.2-1.0) Aspartate Amino Transf (AST/SGOT) 55 U/L (15-37) H Alanine Aminotransferase (ALT/SGPT) 41 U/L (12-78) Alkaline Phosphatase 75 U/L (46-116) C-Reactive Protein, Quantitative 1.9 mg/L (<5) Pro-B-Type Natriuretic Peptide 639 pg/mL (0-125) H Total Protein 5.4 G/DL (6.4-8.2) L Albumin 1.9 G/DL (3.4-5.0) L Globulin 3.5 g/dL Albumin/Globulin Ratio 0.5 (1.0-2.7) L Objective HEAD AND NECK: Shows no JVD. LUNGS: Clear. CARDIOVASCULAR: Shows regular S1 and S2 with no gallop. ABDOMEN: Soft. EXTREMITIES: Right groin Yazan. No pitting edema. Sivakumar Escalante MD Nov 07, 2020 10:02
[2020-11-07] MEDS: dilTIAZem HCl 90mg tab ORAL SCH ×2 (10:15→17:23)
--- NOTE | 2020-11-07 10:24 | Infectious Diseases Prog Note ---
Assessment/Plan Assessment/Plan A; COVID19 pneumonia Hypoxemia Acute renal failure Rhabdomyolysis Diarrhea, C. difficile negative DKA Hyperthyroidism Anemia P; Continue Dexamethasone Subjective ROS Limited/Unobtainable: Yes Neurologic: Reports: other - more alert, on restraint Allergies: Coded Allergies: No Known Allergies (Unverified , 10/31/20) Objective Last 24 Hour Vital Signs Date Time Temp Pulse Resp B/P (MAP) Pulse Ox O2 Delivery O2 Flow Rate FiO2 11/07/20 08:53 82 141/67 11/07/20 05:11 72 146/66 11/07/20 04:00 75 11/07/20 04:00 97.2 67 17 146/66 (92) 93 67 11/07/20 00:00 73 120/56 11/07/20 00:00 97.2 73 18 137/63 (87) 93 73 11/06/20 23:59 72 11/06/20 21:01 Nasal Cannula 3.0 11/06/20 20:40 64 116/59 11/06/20 20:19 99 Nasal Cannula 4.0 36 11/06/20 20:00 97.0 64 20 116/59 (78) 100 64 11/06/20 20:00 64 11/06/20 18:00 62 11/06/20 16:00 98.1 61 21 140/87 (104) 95 61 11/06/20 16:00 64 11/06/20 12:02 75 146/87 11/06/20 12:00 96.8 75 19 146/87 (106) 94 75 11/06/20 12:00 75 Height (Feet): 5 Height (Inches): 5.00 Weight (Pounds): 150 HEENT: mucous membranes moist Respiratory/Chest: other - oxygen by nasal cannula Cardiovascular: normal rate Abdomen: soft, non tender Extremities: no edema Neurologic/Psychiatric: alert, responsive Laboratory Tests Test 11/06/20 20:29 11/07/20 05:14 11/07/20 07:24 11/07/20 07:39 POC Whole Blood Glucose 110 MG/DL (74-106) H 108 MG/DL (74-106) H 197 MG/DL (74-106) H White Blood Count 14.1 K/UL (4.8-10.8) H Red Blood Count 3.44 M/UL (4.70-6.10) L Hemoglobin 10.5 G/DL (14.2-18.0) L Hematocrit 31.4 % (42.0-52.0) L Mean Corpuscular Volume 91 FL (80-99) Mean Corpuscular Hemoglobin 30.5 PG (27.0-31.0) Mean Corpuscular Hemoglobin Concent 33.5 G/DL (32.0-36.0) Red Cell Distribution Width 12.6 % (11.6-14.8) Platelet Count 245 K/UL (150-450) Mean Platelet Volume 6.9 FL (6.5-10.1) Neutrophils (%) (Auto) 85.0 % (45.0-75.0) H Lymphocytes (%) (Auto) 6.9 % (20.0-45.0) L Monocytes (%) (Auto) 7.0 % (1.0-10.0) Eosinophils (%) (Auto) 0.0 % (0.0-3.0) Basophils (%) (Auto) 1.1 % (0.0-2.0) Sodium Level 143 MMOL/L (136-145) Potassium Level 3.1 MMOL/L (3.5-5.1) L Chloride Level 106 MMOL/L (98-107) Carbon Dioxide Level 27 MMOL/L (21-32) Anion Gap 10 mmol/L (5-15) Blood Urea Nitrogen 51 mg/dL (7-18) H Creatinine 3.5 MG/DL (0.55-1.30) H Estimat Glomerular Filtration Rate 17.1 mL/min (>60) Glucose Level 152 MG/DL (74-106) H Calcium Level 7.5 MG/DL (8.5-10.1) L Phosphorus Level 3.5 MG/DL (2.5-4.9) Total Bilirubin 0.6 MG/DL (0.2-1.0) Aspartate Amino Transf (AST/SGOT) 55 U/L (15-37) H Alanine Aminotransferase (ALT/SGPT) 41 U/L (12-78) Alkaline Phosphatase 75 U/L (46-116) C-Reactive Protein, Quantitative 1.9 mg/L (<5) Pro-B-Type Natriuretic Peptide 639 pg/mL (0-125) H Total Protein 5.4 G/DL (6.4-8.2) L Albumin 1.9 G/DL (3.4-5.0) L Globulin 3.5 g/dL Albumin/Globulin Ratio 0.5 (1.0-2.7) L Current Medications Medications (Trade) Dose Ordered Sig/Manasa Route PRN Reason Start Time Stop Time Status Last Admin Dose Admin Acetaminophen (Tylenol) 500 mg Q4H PRN ORAL For Pain 11/01/20 01:00 12/01/20 00:59 11/01/20 18:50 Acetaminophen (Tylenol) 650 mg Q4H PRN RECTAL Temp >100.5 11/01/20 21:30 12/01/20 21:29 Allopurinol (Zyloprim) 200 mg DAILY ORAL 11/01/20 16:00 12/01/20 15:59 11/07/20 08:51 Amiodarone HCl (Cordarone) 400 mg DAILY ORAL 11/05/20 18:30 02/01/21 08:59 11/07/20 08:53 Chlorhexidine Gluconate (María Elena-Hex 2%) 1 applic DAILY@1999 TOPIC 11/04/20 20:00 02/02/21 19:59 11/06/20 20:26 Clonidine HCl (Catapres Tab) 0.1 mg Q4H PRN ORAL bp over 160 syst 10/31/20 17:45 01/29/21 17:44 11/01/20 09:20 Dexamethasone Sodium Phosphate (Decadron 10mg/ ml Inj) 6 mg DAILY IV 11/03/20 09:00 11/13/20 08:59 11/07/20 08:50 Dextrose (Dextrose 50%) 25 ml Q30M PRN IV Hypoglycemia 11/01/20 07:15 01/30/21 07:14 Dextrose (Dextrose 50%) 50 ml Q30M PRN IV Hypoglycemia 11/01/20 07:15 01/30/21 07:14 Diltiazem HCl (Cardizem Tab) 90 mg BID ORAL 11/07/20 10:15 12/02/20 17:59 Docusate Sodium (Colace) 100 mg TWICE A DAY ORAL 10/31/20 18:00 11/30/20 17:59 11/07/20 08:52 Haloperidol Lactate (Haldol) 5 mg Q6H PRN IM Agitation 11/06/20 21:30 12/21/20 21:29 11/07/20 04:08 Insulin Aspart (NovoLOG) BEFORE MEALS AND HS SUBQ 11/01/20 11:30 01/30/21 11:29 11/07/20 07:51 Insulin Aspart (NovoLOG) 8 units NOVOTIAC SUBQ 11/06/20 11:50 01/30/21 11:49 11/07/20 06:30 Insulin Detemir (Levemir) 24 units DAILY SUBQ 11/01/20 09:00 01/30/21 08:59 11/07/20 08:56 Methimazole (Tapazole) 10 mg DAILY ORAL 11/03/20 09:00 12/03/20 08:59 11/07/20 08:51 Metoprolol Tartrate (Lopressor) 50 mg Q12HR ORAL 11/01/20 21:00 01/30/21 20:59 11/07/20 08:53 Pantoprazole (Protonix) 40 mg BID ORAL 10/31/20 18:00 11/30/20 17:44 11/07/20 08:51 Sitagliptin Phosphate (Januvia) 25 mg ACBREAKFAST ORAL 11/06/20 06:30 12/06/20 06:29 11/07/20 05:12 Sodium Chloride 1,000 ml @ 75 mls/hr [id number] IV 10/31/20 17:45 11/30/20 17:44 11/07/20 08:57 Tamsulosin HCl (Flomax) 0.4 mg BID ORAL 11/03/20 12:00 12/03/20 11:59 11/07/20 08:51 Reji Connelly MD Nov 07, 2020 10:24
--- NOTE | 2020-11-07 10:29 | Consultation ---
DATE OF CONSULTATION: 11/01/2020 INFECTIOUS DISEASE CONSULT CONSULTING PHYSICIAN: Reji Connelly M.D. PRIMARY ATTENDING PHYSICIAN: Corey Soto M.D. REASON FOR CONSULTATION: COVID-19 positive test. HISTORY OF PRESENT ILLNESS: This is a 75-year-old male admitted yesterday from home complaining of nausea and vomiting and elevated blood sugar. Blood sugar was 1087 in the ER and he had mild ketoacidosis. He was also positive for COVID test. He had a COVID test a couple of days ago. He has generalized weakness and lactic acidosis. PAST MEDICAL HISTORY: Diabetes mellitus. ALLERGIES: No known drug allergies. MEDICATIONS: Insulin aspart, insulin detemir, Tylenol, Protonix, Colace, and clonidine. SOCIAL HISTORY: . No history of alcohol, drug abuse, or smoking. REVIEW OF SYSTEMS: Limited because of language barrier. PHYSICAL EXAMINATION: VITAL SIGNS: Temperature 98.5, pulse 107, blood pressure 174/89. GENERAL APPEARANCE: No acute distress. Well developed. HEAD AND NECK: [place] conjunctivae. HEART: Tachycardic. LUNGS: Clear. The patient is on room air oxygen. ABDOMEN: Soft and nontender. EXTREMITIES: No edema. NEUROLOGIC: He is awake, alert, verbal. LABORATORY AND DIAGNOSTIC DATA: WBC today is 13.3, hemoglobin 14, hematocrit 42.7, platelets are 119. Sodium 143, potassium 3.5, chloride 109, bicarbonate 18, BUN 52, creatinine 3.2, glucose 459. Troponin is elevated at 0.315. TSH is low at 0.0957. UA showed wbc's 0-2, glucose 4+, ketones 2+, blood 2+. Chest x-ray, cardiomegaly with left lung atelectasis. Renal ultrasound is unremarkable. IMPRESSION: COVID-19 disease, seems to be mild. The patient currently is on room air oxygen. Chest x-ray just showed atelectasis. He has uncontrolled diabetic ketoacidosis, acute renal failure, and elevated troponin. RECOMMENDATIONS: Continue supportive care. Observe off antibiotic. We will follow up the clinical course. At the end of my exam, I thank Dr. Soto for involving me in the care of this patient. Reji Connelly M.D. DR: SERAFIN JOB#: [id number] CC: SHEEBA
--- NOTE | 2020-11-07 11:26 | NUR ---
RD ASSESSMENT & RECOMMENDATIONS SEE CARE ACTIVITY FOR COMPLETE ASSESSMENT DAILY ESTIMATED NEEDS: Needs based on DM, pulmonary 68.4kg 25-30 kcals/kg total kcals 1-1.5 g protein/kg 68-102 g total protein 25-30 mL/kg total fluid mLs NUTRITION DIAGNOSIS: Altered nutrition related lab values r/t DKA as evidenced by Uglu 4+ on adm, small acetone detected, BG 1087, A1C 8.1. CURRENT DIET: Renal + Ensure TID PO DIET RECOMMENDATIONS: With poor po rec LOW NA/ CCHO MED diet (texture as tolerated) ENTERAL NUTRITION RECOMMENDATIONS: Consider non oral feeds if part of POC w/ poor po intake ADDITIONAL RECOMMENDATIONS: 1) Recommend supplement w/ continued poor intake Nepro TID w/ elevated K 2) Monitor BG w/ poor po, pt at risk for hypoglycemia w/ insulin regimen 3) Maintain calibrated bed scale wts 4) Non oral feeds of part of POC, w/ continued poor to fair po intake Pt is A&O x1, on haldol
[2020-11-07 12:00] VITALS: BP 145/62
--- NOTE | 2020-11-07 13:46 | Nephrology Progress Note ---
Assessment/Plan Problem List: (1) Renal failure (ARF), acute on chronic (2) DKA (diabetic ketoacidoses) (3) COVID-19 virus infection (4) Rhabdomyolysis (5) Abnormal thyroid blood test (6) NSTEMI (non-ST elevated myocardial infarction) Assessment 75-year-old Chinese male Covid positive Acute renal failure, most likely superimposed on chronic kidney disease Diabetes mellitus, presents with severe hyperglycemia and DKA History of hypertension Plan November 07: Labs reviewed. Serum creatinine rising. IV fluid discontinued. Dialysis for tomorrow. Continue per consultants. November 06: Labs reviewed. Blood pressure stable. Medication list reviewed. Dialysis as needed. November 05: Due for dialysis today. Labs are reviewed. Blood pressure is stable. Continue to monitor renal parameters. November 04: Patient was dialyzed yesterday. 1 L ultrafiltrated. Labs reviewed. Renal parameters stable. Will attempt dialysis again tomorrow. Medication list reviewed. November 03: Labs reviewed. Serum creatinine rising. Patient has hematuria. Patient on Eliquis. Will arrange for placement of dialysis catheter and attempt to dialyze. Will start Flomax since the patient could not have a Anand cat heter. Continue to monitor renal parameters. Continue per consultants. Discussed with RN. Consent for placement of nontunneled catheter ordered. Patient is also on Tapazole for high thyroid hormone. CPK is lowering. November 02: Labs reviewed. Serum creatinine up to 4. In S DU now. On Cardizem drip. Measured creatinine clearance . Patient may lead towards dialysis. Continue to monitor renal parameters. November 01: Renal parameters improving. Blood sugar is improving. Continue to monitor electrolytes renal parameters and urine output. Aim to control blood sugar and blood pressure. Avoid nephrotoxic's. Monitor CPK as it is elevated. Previously: Anand catheter Blood sugar control Slow hydration Monitor renal parameters Kidney ultrasound no hydronephrosis 2D echocardiogram ejection fraction 60 to 65%. Per orders Subjective ROS Limited/Unobtainable: No Constitutional: Reports: malaise, weakness Objective Objective Last 24 Hour Vital Signs Date Time Temp Pulse Resp B/P (MAP) Pulse Ox O2 Delivery O2 Flow Rate FiO2 11/07/20 12:00 79 11/07/20 12:00 96.9 82 20 145/62 (89) 95 82 11/07/20 10:15 98 142/65 11/07/20 09:00 Nasal Cannula 3.0 11/07/20 08:53 82 141/67 11/07/20 08:00 97.3 83 20 141/67 (91) 93 83 11/07/20 08:00 90 11/07/20 05:11 72 146/66 11/07/20 04:00 75 11/07/20 04:00 97.2 67 17 146/66 (92) 93 67 11/07/20 00:00 73 120/56 11/07/20 00:00 97.2 73 18 137/63 (87) 93 73 11/06/20 23:59 72 11/06/20 21:01 Nasal Cannula 3.0 11/06/20 20:40 64 116/59 11/06/20 20:19 99 Nasal Cannula 4.0 36 11/06/20 20:00 97.0 64 20 116/59 (78) 100 64 11/06/20 20:00 64 11/06/20 18:00 62 11/06/20 16:00 98.1 61 21 140/87 (104) 95 61 11/06/20 16:00 64 Intake and Output 11/06/20 11/07/20 19:00 07:00 Intake Total 945 ml Output Total 1200 ml Balance -255 ml Intake Oral 120 ml IV Total 825 ml Output Urine Total 1200 ml # Voids 3 1 # Bowel Movements 4 Laboratory Tests 11/06/20 20:29: POC Whole Blood Glucose 110H 11/07/20 05:14: POC Whole Blood Glucose 108H 11/07/20 07:24: White Blood Count 14.1H, Red Blood Count 3.44L, Hemoglobin 10.5L, Hematocrit 31.4L, Mean Corpuscular Volume 91, Mean Corpuscular Hemoglobin 30.5, Mean Corpuscular Hemoglobin Concent 33.5, Red Cell Distribution Width 12.6, Platelet Count 245, Mean Platelet Volume 6.9, Neutrophils (%) (Auto) 85.0H, Lymphocytes (%) (Auto) 6.9L, Monocytes (%) (Auto) 7.0, Eosinophils (%) (Auto) 0.0, Basophils (%) (Auto) 1.1, Sodium Level 143, Potassium Level 3.1L, Chloride Level 106, Carbon Dioxide Level 27, Anion Gap 10, Blood Urea Nitrogen 51H, Creatinine 3.5H, Estimat Glomerular Filtration Rate 17.1, Glucose Level 152H, Calcium Level 7.5L, Phosphorus Level 3.5, Total Bilirubin 0.6, Aspartate Amino Transf (AST/SGOT) 55H , Alanine Aminotransferase (ALT/SGPT) 41, Alkaline Phosphatase 75, C-Reactive Protein, Quantitative 1.9, Pro-B-Type Natriuretic Peptide 639H, Total Protein 5.4L, Albumin 1.9L, Globulin 3.5, Albumin/Globulin Ratio 0.5L 11/07/20 07:39: POC Whole Blood Glucose 197H 11/07/20 11:07: POC Whole Blood Glucose [Pending] Height (Feet): 5 Height (Inches): 5.00 Weight (Pounds): 150 General Appearance: no apparent distress, lethargic Cardiovascular: normal rate Respiratory/Chest: decreased breath sounds Abdomen: distended Garth Buckley MD Nov 07, 2020 13:46
--- NOTE | 2020-11-07 13:58 | Diagnostic Imaging Report ---
Indication: Lower extremity edema, shortness of breath Technique: Grayscale and duplex images of the bilateral lower extremity veins Comparison: None Findings: Exam is somewhat limited; the downstream right femoral vein could not be visualized due to overlying bandages related to a central line. Bilaterally, grayscale and duplex images demonstrate no evidence of intraluminal thrombus. Normal phasic Doppler waveforms, demonstrating normal augmentation response and no evidence of valvular insufficiency. Greater saphenous vein(s) and tibial veins are patent. Normal compressibility. Impression: Negative for evidence of lower extremity deep venous thrombosis bilaterally Somewhat limited exam, with nonvisualization of the downstream right femoral vein; thrombosis of this segment cannot be confidently excluded
--- NOTE | 2020-11-07 14:16 | Pulmonology Progress Note ---
Subjective ROS Limited/Unobtainable: No Interval Events: none major reported per nursing Constitutional: Denies: fever Gastrointestinal/Abdominal: Reports: diarrhea Allergies: Coded Allergies: No Known Allergies (Unverified , 10/31/20) Objective Last 24 Hour Vital Signs Date Time Temp Pulse Resp B/P (MAP) Pulse Ox O2 Delivery O2 Flow Rate FiO2 11/07/20 12:00 79 11/07/20 12:00 96.9 82 20 145/62 (89) 95 82 11/07/20 10:15 98 142/65 11/07/20 09:00 Nasal Cannula 3.0 11/07/20 08:53 82 141/67 11/07/20 08:00 97.3 83 20 141/67 (91) 93 83 11/07/20 08:00 90 11/07/20 05:11 72 146/66 11/07/20 04:00 75 11/07/20 04:00 97.2 67 17 146/66 (92) 93 67 11/07/20 00:00 73 120/56 11/07/20 00:00 97.2 73 18 137/63 (87) 93 73 11/06/20 23:59 72 11/06/20 21:01 Nasal Cannula 3.0 11/06/20 20:40 64 116/59 11/06/20 20:19 99 Nasal Cannula 4.0 36 11/06/20 20:00 97.0 64 20 116/59 (78) 100 64 11/06/20 20:00 64 11/06/20 18:00 62 11/06/20 16:00 98.1 61 21 140/87 (104) 95 61 11/06/20 16:00 64 Intake and Output 11/06/20 11/07/20 19:00 07:00 Intake Total 945 ml Output Total 1200 ml Balance -255 ml Intake Oral 120 ml IV Total 825 ml Output Urine Total 1200 ml # Voids 3 1 # Bowel Movements 4 Objective 11/02 saturating at 95% on 3L NC General Appearance: WD/WN, no acute distress HEENT: atraumatic Respiratory: chest wall non-tender Cardiovascular: regular rhythm, tachycardia Abdomen: soft, non tender Laboratory Tests 11/06/20 20:29: POC Whole Blood Glucose 110H 11/07/20 05:14: POC Whole Blood Glucose 108H 11/07/20 07:24: White Blood Count 14.1H, Red Blood Count 3.44L, Hemoglobin 10.5L, Hematocrit 31.4L, Mean Corpuscular Volume 91, Mean Corpuscular Hemoglobin 30.5, Mean Corpus cular Hemoglobin Concent 33.5, Red Cell Distribution Width 12.6, Platelet Count 245, Mean Platelet Volume 6.9, Neutrophils (%) (Auto) 85.0H, Lymphocytes (%) (Auto) 6.9L, Monocytes (%) (Auto) 7.0, Eosinophils (%) (Auto) 0.0, Basophils (%) (Auto) 1.1, Sodium Level 143, Potassium Level 3.1L, Chloride Level 106, Carbon Dioxide Level 27, Anion Gap 10, Blood Urea Nitrogen 51H, Creatinine 3.5H, Estimat Glomerular Filtration Rate 17.1, Glucose Level 152H, Calcium Level 7.5L, Phosphorus Level 3.5, Total Bilirubin 0.6, Aspartate Amino Transf (AST/SGOT) 55H , Alanine Aminotransferase (ALT/SGPT) 41, Alkaline Phosphatase 75, C-Reactive Protein, Quantitative 1.9, Pro-B-Type Natriuretic Peptide 639H, Total Protein 5.4L, Albumin 1.9L, Globulin 3.5, Albumin/Globulin Ratio 0.5L 11/07/20 07:39: POC Whole Blood Glucose 197H 11/07/20 11:07: POC Whole Blood Glucose [Pending] Current Medications Medications (Trade) Dose Ordered Sig/Manasa Route PRN Reason Start Time Stop Time Status Last Admin Dose Admin Acetaminophen (Tylenol) 500 mg Q4H PRN ORAL For Pain 11/01/20 01:00 12/01/20 00:59 11/01/20 18:50 Acetaminophen (Tylenol) 650 mg Q4H PRN RECTAL Temp >100.5 11/01/20 21:30 12/01/20 21:29 Allopurinol (Zyloprim) 200 mg DAILY ORAL 11/01/20 16:00 12/01/20 15:59 11/07/20 08:51 Amiodarone HCl (Cordarone) 400 mg DAILY ORAL 11/05/20 18:30 02/01/21 08:59 11/07/20 08:53 Chlorhexidine Gluconate (María Elena-Hex 2%) 1 applic DAILY@2000 TOPIC 11/04/20 20:00 02/02/21 19:59 11/06/20 20:26 Clonidine HCl (Catapres Tab) 0.1 mg Q4H PRN ORAL bp over 160 syst 10/31/20 17:45 01/29/21 17:44 11/01/20 09:20 Dexamethasone Sodium Phosphate (Decadron 10mg/ ml Inj) 6 mg DAILY IV 11/03/20 09:00 11/13/20 08:59 11/07/20 08:50 Dextrose (Dextrose 50%) 25 ml Q30M PRN IV Hypoglycemia 11/01/20 07:15 01/30/21 07:14 Dextrose (Dextrose 50%) 50 ml Q30M PRN IV Hypoglycemia 11/01/20 07:15 01/30/21 07:14 Diltiazem HCl (Cardizem Tab) 90 mg BID ORAL 11/07/20 10:15 12/02/20 17:59 11/07/20 10:15 Docusate Sodium (Colace) 100 mg TWICE A DAY ORAL 10/31/20 18:00 11/30/20 17:59 11/07/20 08:52 Haloperidol Lactate (Haldol) 5 mg Q6H PRN IM Agitation 11/06/20 21:30 12/21/20 21:29 11/07/20 04:08 Insulin Aspart (NovoLOG) BEFORE MEALS AND HS SUBQ 11/01/20 11:30 01/30/21 11:29 11/07/20 11:30 Insulin Aspart (NovoLOG) 8 units NOVOTIAC SUBQ 11/06/20 11:50 01/30/21 11:49 11/07/20 12:12 Insulin Detemir (Levemir) 24 units DAILY SUBQ 11/01/20 09:00 01/30/21 08:59 11/07/20 08:56 Methimazole (Tapazole) 10 mg DAILY ORAL 11/03/20 09:00 12/03/20 08:59 11/07/20 08:51 Metoprolol Tartrate (Lopressor) 50 mg Q12HR ORAL 11/01/20 21:00 01/30/21 20:59 11/07/20 08:53 Pantoprazole (Protonix) 40 mg BID ORAL 10/31/20 18:00 11/30/20 17:44 11/07/20 08:51 Sitagliptin Phosphate (Januvia) 25 mg ACBREAKFAST ORAL 11/06/20 06:30 12/06/20 06:29 11/07/20 05:12 Tamsulosin HCl (Flomax) 0.4 mg BID ORAL 11/03/20 12:00 12/03/20 11:59 11/07/20 08:51 Assessment/Plan Assessment/Plan 1. Non-ST elevation myocardial infarction. - cardiology following 2. Diabetic ketoacidosis - seen by endocrinology - continue fluids - on insulin 3. Atrial flutter with rapid ventricular response. - Continue metoprolol 50 mg b.i.d. 4. COVID positive pneumonia. - on Decadron - Supplemental O2 - saturating at 94-96% on 3L NC - CXR 11/04 developing b/l infilitrates 5. Renal failure with creatinine of 3.5. - nephrology following 6. Accelerated hypertension. 7. Hyperthyroidism - Dr. Tamez following DVT ppx - Lovenox The care for this patient was discussed with my supervising physician Time spent for this case was approximately 31 minutes Singh Buchanan Nov 07, 2020 14:16
[2020-11-07 16:00] VITALS: BP 129/59
--- NOTE | 2020-11-07 18:49 | Surgery Progress Note ---
Surgery Progress Note Subjective Procedure Performed Right femoral temporary hemodialysis catheter insertion Additional Comments leukocytosis venous duplex negative h/h stable no n/v Objective Last 24 Hour Vital Signs Date Time Temp Pulse Resp B/P (MAP) Pulse Ox O2 Delivery O2 Flow Rate FiO2 11/07/20 17:23 82 129/59 11/07/20 16:00 66 11/07/20 16:00 97.1 64 20 129/59 (82) 96 64 11/07/20 12:00 79 11/07/20 12:00 96.9 82 20 145/62 (89) 95 82 11/07/20 10:15 98 142/65 11/07/20 09:00 98 Nasal Cannula 4.0 36 11/07/20 09:00 Nasal Cannula 3.0 11/07/20 08:53 82 141/67 11/07/20 08:00 97.3 83 20 141/67 (91) 93 83 11/07/20 08:00 90 11/07/20 05:11 72 146/66 11/07/20 04:00 75 11/07/20 04:00 97.2 67 17 146/66 (92) 93 67 11/07/20 00:00 73 120/56 11/07/20 00:00 97.2 73 18 137/63 (87) 93 73 11/06/20 23:59 72 11/06/20 21:01 Nasal Cannula 3.0 11/06/20 20:40 64 116/59 11/06/20 20:19 99 Nasal Cannula 4.0 36 11/06/20 20:00 97.0 64 20 116/59 (78) 100 64 11/06/20 20:00 64 I&O Intake and Output 11/06/20 11/07/20 19:00 07:00 Intake Total 945 ml Output Total 1200 ml Balance -255 ml Intake Oral 120 ml IV Total 825 ml Output Urine Total 1200 ml # Voids 3 1 # Bowel Movements 4 Laboratory Tests Test 11/06/20 20:29 11/07/20 05:14 11/07/20 07:24 11/07/20 07:39 POC Whole Blood Glucose 110 MG/DL (74-106) H 108 MG/DL (74-106) H 197 MG/DL (74-106) H White Blood Count 14.1 K/UL (4.8-10.8) H Red Blood Count 3.44 M/UL (4.70-6.10) L Hemoglobin 10.5 G/DL (14.2-18.0) L Hematocrit 31.4 % (42.0-52.0) L Mean Corpuscular Volume 91 FL (80-99) Mean Corpuscular Hemoglobin 30.5 PG (27.0-31.0) Mean Corpuscular Hemoglobin Concent 33.5 G/DL (32.0-36.0) Red Cell Distribution Width 12.6 % (11.6-14.8) Platelet Count 245 K/UL (150-450) Mean Platelet Volume 6.9 FL (6.5-10.1) Neutrophils (%) (Auto) 85.0 % (45.0-75.0) H Lymphocytes (%) (Auto) 6.9 % (20.0-45.0) L Monocytes (%) (Auto) 7.0 % (1.0-10.0) Eosinophils (%) (Auto) 0.0 % (0.0-3.0) Basophils (%) (Auto) 1.1 % (0.0-2.0) Sodium Level 143 MMOL/L (136-145) Potassium Level 3.1 MMOL/L (3.5-5.1) L Chloride Level 106 MMOL/L (98-107) Carbon Dioxide Level 27 MMOL/L (21-32) Anion Gap 10 mmol/L (5-15) Blood Urea Nitrogen 51 mg/dL (7-18) H Creatinine 3.5 MG/DL (0.55-1.30) H Estimat Glomerular Filtration Rate 17.1 mL/min (>60) Glucose Level 152 MG/DL (74-106) H Calcium Level 7.5 MG/DL (8.5-10.1) L Phosphorus Level 3.5 MG/DL (2.5-4.9) Total Bilirubin 0.6 MG/DL (0.2-1.0) Aspartate Amino Transf (AST/SGOT) 55 U/L (15-37) H Alanine Aminotransferase (ALT/SGPT) 41 U/L (12-78) Alkaline Phosphatase 75 U/L (46-116) C-Reactive Protein, Quantitative 1.9 mg/L (<5) Pro-B-Type Natriuretic Peptide 639 pg/mL (0-125) H Total Protein 5.4 G/DL (6.4-8.2) L Albumin 1.9 G/DL (3.4-5.0) L Globulin 3.5 g/dL Albumin/Globulin Ratio 0.5 (1.0-2.7) L Test 11/07/20 11:07 11/07/20 15:28 POC Whole Blood Glucose Pending 242 MG/DL (74-106) H Plan Problems: (1) DKA (diabetic ketoacidoses) (2) Renal failure (ARF), acute on chronic (3) COVID-19 virus infection Assessment & Plan: 75-year-old male Covid positive renal insufficiency recently had temporary dialysis catheter placement develop leukocytosis soon after. Vitals noted. Exam stable. Catheter was evaluated no acute active inflammatory or infectious process identified. Catheter is clean dry intact. The dressings are not saturated. There is no active bleeding identified. There is no signs of active infection. Leukocytosis anterior collated to medications currently given for COVID-19 infection. Will monitor closely to ensure no active development of infection or related to catheter placement. Thank you for let me participate patient's care will follow with recommendations trend leukocytosis cont dressings cont care plan as noted cont HD trend renal function (4) Rhabdomyolysis Assessment & Plan: DAILY ESTIMATED NEEDS: Needs based on DM, pulmonary 68.4kg 25-30 kcals/kg 7811-0742 total kcals 1-1.5 g protein/kg 68-102 g total protein 25-30 mL/kg 8051-2262 total fluid mLs NUTRITION DIAGNOSIS: Altered nutrition related lab values r/t DKA as evidenced by Uglu 4+ on adm, small acetone detected, BG 1087, A1C 8.1. CURRENT DIET: Renal + Ensure TID PO DIET RECOMMENDATIONS: With poor po rec LOW NA/ CCHO MED diet (texture as tolerated) ENTERAL NUTRITION RECOMMENDATIONS: Consider non oral feeds if part of POC w/ poor po intake ADDITIONAL RECOMMENDATIONS: 1) Recommend supplement w/ continued poor intake Nepro TID w/ elevated K 2) Monitor BG w/ poor po, pt at risk for hypoglycemia w/ insulin regimen 3) Maintain calibrated bed scale wts 4) Non oral feeds of part of POC, w/ continued poor to fair po intake Pt is A&O x1, on haldol (5) Diabetes mellitus out of control (6) Abnormal thyroid blood test (7) NSTEMI (non-ST elevated myocardial infarction) Norberto Steele Nov 07, 2020 18:49
[2020-11-07 20:00] VITALS: BP 138/67
[2020-11-07] MEDS: Dyna-Hex 2% Top Sol 2oz TOPIC SCH (20:00)
--- NOTE | 2020-11-07 20:36 | General Progress Note ---
Subjective ROS Limited/Unobtainable: Yes Allergies: Coded Allergies: No Known Allergies (Unverified , 10/31/20) Objective Last 24 Hour Vital Signs Date Time Temp Pulse Resp B/P (MAP) Pulse Ox O2 Delivery O2 Flow Rate FiO2 11/07/20 17:23 82 129/59 11/07/20 16:00 66 11/07/20 16:00 97.1 64 20 129/59 (82) 96 64 11/07/20 12:00 79 11/07/20 12:00 96.9 82 20 145/62 (89) 95 82 11/07/20 10:15 98 142/65 11/07/20 09:00 98 Nasal Cannula 4.0 36 11/07/20 09:00 Nasal Cannula 3.0 11/07/20 08:53 82 141/67 11/07/20 08:00 97.3 83 20 141/67 (91) 93 83 11/07/20 08:00 90 11/07/20 05:11 72 146/66 11/07/20 04:00 75 11/07/20 04:00 97.2 67 17 146/66 (92) 93 67 11/07/20 00:00 73 120/56 11/07/20 00:00 97.2 73 18 137/63 (87) 93 73 11/06/20 23:59 72 11/06/20 21:01 Nasal Cannula 3.0 11/06/20 20:40 64 116/59 Intake and Output 11/06/20 11/07/20 19:00 07:00 Intake Total 945 ml Output Total 1200 ml Balance -255 ml Intake Oral 120 ml IV Total 825 ml Output Urine Total 1200 ml # Voids 3 1 # Bowel Movements 4 Laboratory Tests 11/07/20 05:14: POC Whole Blood Glucose 108H 11/07/20 07:24: White Blood Count 14.1H, Red Blood Count 3.44L, Hemoglobin 10.5L, Hematocrit 31.4L, Mean Corpuscular Volume 91, Mean Corpuscular Hemoglobin 30.5, Mean Corpuscular Hemoglobin Concent 33.5, Red Cell Distribution Width 12.6, Platelet Count 245, Mean Platelet Volume 6.9, Neutrophils (%) (Auto) 85.0H, Lymphocytes (%) (Auto) 6.9L, Monocytes (%) (Auto) 7.0, Eosinophils (%) (Auto) 0.0, Basophils (%) (Auto) 1.1, Sodium Level 143, Potassium Level 3.1L, Chloride Level 106, Carbon Dioxide Level 27, Anion Gap 10, Blood Urea Nitrogen 51H, Creatinine 3.5H, Estimat Glomerular Filtration Rate 17.1, Glucose Level 152H, Calcium Level 7.5L, Phosphorus Level 3.5, Total Bilirubin 0.6, Aspartate Amino Transf (AST/SGOT) 55H , Alanine Aminotransferase (ALT/SGPT) 41, Alkaline Phosphatase 75, C-Reactive Protein, Quantitative 1.9, Pro-B-Type Natriuretic Peptide 639H, Total Protein 5.4L, Albumin 1.9L, Globulin 3.5, Albumin/Globulin Ratio 0.5L 11/07/20 07:39: POC Whole Blood Glucose 197H 11/07/20 11:07: POC Whole Blood Glucose [Pending] 11/07/20 15:28: POC Whole Blood Glucose 242H Height (Feet): 5 Height (Inches): 5.00 Weight (Pounds): 150 Assessment/Plan Problem List: (1) Renal failure (ARF), acute on chronic ICD Codes: N17.9 - Acute kidney failure, unspecified; N18.9 - Chronic kidney disease, unspecified SNOMED: 696994316 (2) DKA (diabetic ketoacidoses) ICD Codes: E11.10 - Type 2 diabetes mellitus with ketoacidosis without coma SNOMED: 731495232, 42449160 (3) COVID-19 virus infection ICD Codes: U07.1 - COVID-19 SNOMED: 926478860 (4) Rhabdomyolysis ICD Codes: M62.82 - Rhabdomyolysis SNOMED: 767901331 (5) Diabetes mellitus out of control ICD Codes: E11.65 - Type 2 diabetes mellitus with hyperglycemia SNOMED: 77801070, 229746942 (6) Abnormal thyroid blood test ICD Codes: R79.89 - Other specified abnormal findings of blood chemistry SNOMED: 721327142, 251763969889607 (7) NSTEMI (non-ST elevated myocardial infarction) ICD Codes: I21.4 - Non-ST elevation (NSTEMI) myocardial infarction SNOMED: 86126694 Status: progressing, unchanged Assessment/Plan: covid + dka resolved sugar is improving hypokalemia worsening leukocytosis rhabdomyosis fl niddm Corey Soto MD Nov 07, 2020 20:36
--- NOTE | 2020-11-07 20:51 | NUR ---
NURSE HAND-OFF REPORT: Important Events on Shift:[BM, D/C fluids, VD negative] Patient Status: [full code] Diet: [Renal Pureed] Pending Orders: [N/A] Pending Results/Labs:[N/A] Pending MD notification:[N/A] Latest Vital Signs: Temperature 97.1 , Pulse 82 , B/P 129 /59 , Respiratory Rate 20 , O2 SAT 96 , Nasal Cannula, O2 Flow Rate 4.0 . Vital Sign Comment: [] EKG Rhythm: Sinus Rhythm Rhythm change?: N Notified?: Amari MCQUEEN MD Response: Message left await call Latest Bhat Fall Score: 60 Fall Risk: High Risk Safety Measures: Call light Within Reach, Bed Alarm Zone 1, Side Rails Side Rails x3, Bed position Low and Locked. Fall Precautions: Yellow Socks Report given to [ARPITA Clarke].
--- NOTE | 2020-11-07 21:00 | NUR ---
NURSE NOTES: Got report from Reji PALM. Patient seen in bed in low fowlers position asleep with no acute signs of distress. The patient has a right AC 22G IV slocked that is patent clean and intact. The patients is receiving oxygen via 3L nasal cannula and is saturation within normal limits. Pt on bilateral soft wrist restraints for safety d/t falls. The patients bed is in lowest position, locked, side rails x3, bed alarm in zone 1 and call light within reach. Continue to monitor.
[2020-11-08] VITALS: BP 121/58
--- NOTE | 2020-11-08 00:02 | Psychiatric Progress Note ---
Psychiatry Progress Note Psychiatry Progress Note Medications Current Medications Medications (Trade) Dose Ordered Sig/Manasa Route PRN Reason Start Time Stop Time Status Last Admin Dose Admin Acetaminophen (Tylenol) 500 mg Q4H PRN ORAL For Pain 11/01/20 01:00 12/01/20 00:59 11/01/20 18:50 Acetaminophen (Tylenol) 650 mg Q4H PRN RECTAL Temp >100.5 11/01/20 21:30 12/01/20 21:29 Allopurinol (Zyloprim) 200 mg DAILY ORAL 11/01/20 16:00 12/01/20 15:59 11/07/20 08:51 Amiodarone HCl (Cordarone) 400 mg DAILY ORAL 11/05/20 18:30 02/01/21 08:59 11/07/20 08:53 Chlorhexidine Gluconate (María Elena-Hex 2%) 1 applic DAILY@1999 TOPIC 11/04/20 20:00 02/02/21 19:59 11/07/20 20:00 Clonidine HCl (Catapres Tab) 0.1 mg Q4H PRN ORAL bp over 160 syst 10/31/20 17:45 01/29/21 17:44 11/01/20 09:20 Dexamethasone Sodium Phosphate (Decadron 10mg/ ml Inj) 6 mg DAILY IV 11/03/20 09:00 11/13/20 08:59 11/07/20 08:50 Dextrose (Dextrose 50%) 25 ml Q30M PRN IV Hypoglycemia 11/01/20 07:15 01/30/21 07:14 Dextrose (Dextrose 50%) 50 ml Q30M PRN IV Hypoglycemia 11/01/20 07:15 01/30/21 07:14 Diltiazem HCl (Cardizem Tab) 90 mg BID ORAL 11/07/20 10:15 12/02/20 17:59 11/07/20 17:23 Docusate Sodium (Colace) 100 mg TWICE A DAY ORAL 10/31/20 18:00 11/30/20 17:59 11/07/20 08:52 Haloperidol Lactate (Haldol) 5 mg Q6H PRN IM Agitation 11/06/20 21:30 12/21/20 21:29 11/07/20 21:39 Insulin Aspart (NovoLOG) BEFORE MEALS AND HS SUBQ 11/01/20 11:30 01/30/21 11:29 11/07/20 16:30 Insulin Aspart (NovoLOG) 8 units NOVOTIAC SUBQ 11/06/20 11:50 01/30/21 11:49 11/07/20 17:16 Insulin Detemir (Levemir) 24 units DAILY SUBQ 11/01/20 09:00 01/30/21 08:59 11/07/20 08:56 Methimazole (Tapazole) 10 mg DAILY ORAL 11/03/20 09:00 12/03/20 08:59 11/07/20 08:51 Metoprolol Tartrate (Lopressor) 50 mg Q12HR ORAL 11/01/20 21:00 01/30/21 20:59 11/07/20 21:00 Ondansetron HCl (Zofran) 4 mg Q6H PRN IVP Nausea & Vomiting 11/07/20 16:30 12/07/20 16:29 11/07/20 17:28 Pantoprazole (Protonix) 40 mg BID ORAL 10/31/20 18:00 11/30/20 17:44 11/07/20 17:23 Sitagliptin Phosphate (Januvia) 25 mg ACBREAKFAST ORAL 11/06/20 06:30 12/06/20 06:29 11/07/20 05:12 Tamsulosin HCl (Flomax) 0.4 mg BID ORAL 11/03/20 12:00 12/03/20 11:59 11/07/20 17:23 Neurological/Psychiatric: Reports: anxiety, depressed, emotional problems Allergies: Coded Allergies: No Known Allergies (Unverified , 10/31/20) Objective Data Height (Feet): 5 Height (Inches): 5.00 Weight (Pounds): 150 General Appearance: no apparent distress, lethargic Additional Comments: The patient is confused, disoriented, Persian-speaking. Mood is agitated. Affect is flat. Thought process disorganized. Thought content, no suicidal, homicidal ideation. Cognition is impaired. Insight and judgment is impaired. ASSESSMENT: Clinton I Acute toxic encephalopathy. Dementia. Clinton II Deferred. Clinton III COVID-19. Clinton IV Low. Clinton V 20 PLAN: 1. We will start the patient on soft restraints. 2. Continue to follow and readjust the meds. Assessment/Plan Status: progressing, unchanged Farhadi,Pantea MD Nov 08, 2020 00:02
[2020-11-08 04:00] VITALS: BP 143/75
[2020-11-08] MEDS: NovoLOG Insulin Flexpen SUBQ SCH ×7 (06:30→20:43)
[2020-11-08] MEDS: sitaGLIPtin 25mg tab ORAL SCH (06:30)
--- NOTE | 2020-11-08 06:42 | NUR ---
CASE MANAGEMENT:REVIEW 11/08/20 SI: NSTEMI. COVID PNA. DKA. AFLUTTER W/RVR 97.0 61 20 143/75 98% ON 4L/NC IS: CARDIZEM PO BID AMIODARONE PO QD NOVOLOG SQ TID AC JANUVIA PO QAM SS INSULIN AC+HS LEVEMIR SQ QD FLOMAX PO BID TAPAZOLE PO QD IV DECADRON QD LOPRESSOR PO Q12 PROTONIX PO BID : TELEMETRY STATUS DCP: FROM HOME PLAN: WEAN OXYGEN SCHEDULED FOR DIALYSIS TOMORROW
--- NOTE | 2020-11-08 07:00 | NUR ---
NURSE HAND-OFF REPORT: Important Events on Shift:[] Patient Status: [STABLE] Diet: [] Pending Orders: [] Pending Results/Labs:[] Pending MD notification:[] Latest Vital Signs: Temperature 97.0 , Pulse 62 , B/P 143 /75 , Respiratory Rate 20 , O2 SAT 98 , Nasal Cannula, O2 Flow Rate 4.0 . Vital Sign Comment: [] EKG Rhythm: Sinus Rhythm Rhythm change?: N MD Notified?: Amari MCQUEEN MD Response: Message left await call Latest Bhat Fall Score: 60 Fall Risk: High Risk Safety Measures: Call light Within Reach, Bed Alarm Zone 1, Side Rails Side Rails x3, Bed position Low and Locked. Fall Precautions: Yellow Socks Report given to [TAHMINA].
--- NOTE | 2020-11-08 07:03 | NUR ---
NURSE NOTES: Receives am report. pt is asleep and arousable in bed. respiration is even and unlabored on o2@ 3l/min via NC. hob elevated. no facial grimacing for pain noted. no acute distress noted at this time. call light is within reach.
[2020-11-08 07:14] LABS: HEMATOCRIT 31.1 % (42.0-52.0); MEAN CORPUSCULAR VOLUME 96 FL (80-99); PLATELET COUNT 240 K/UL (150-450); RED BLOOD COUNT 3.26 M/UL (4.70-6.10); RED CELL DISTRIBUTION WIDTH 12.9 % (11.6-14.8); WHITE BLOOD COUNT 15.5 K/UL (4.8-10.8)
--- NOTE | 2020-11-08 07:19 | General Progress Note ---
Subjective ROS Limited/Unobtainable: Yes Allergies: Coded Allergies: No Known Allergies (Unverified , 10/31/20) Subjective events noted interval notes reviewed glucose values stable in COVID isolation Item Value Date Time Bedside Blood Glucose 110 mg/dl 11/08/20 0630 Bedside Blood Glucose 111 mg/dl 11/07/20 2100 Bedside Blood Glucose 242 mg/dl H 11/07/20 1716 Bedside Blood Glucose 400 mg/dl H 11/07/20 1212 Bedside Blood Glucose 197 mg/dl H 11/07/20 0856 Bedside Blood Glucose 197 mg/dl H 11/07/20 0630 Objective Last 24 Hour Vital Signs Date Time Temp Pulse Resp B/P (MAP) Pulse Ox O2 Delivery O2 Flow Rate FiO2 11/08/20 04:00 97.0 62 20 143/75 (97) 98 11/08/20 04:00 61 11/08/20 00:00 64 11/08/20 00:00 97.5 60 20 121/58 (79) 95 11/07/20 22:32 98 Nasal Cannula 4.0 36 11/07/20 21:00 69 138/67 11/07/20 21:00 Nasal Cannula 3.0 11/07/20 20:00 63 11/07/20 20:00 97.7 69 20 138/67 (90) 95 11/07/20 17:23 82 129/59 11/07/20 16:00 66 11/07/20 16:00 97.1 64 20 129/59 (82) 96 64 11/07/20 12:00 79 11/07/20 12:00 96.9 82 20 145/62 (89) 95 82 11/07/20 10:15 98 142/65 11/07/20 09:00 98 Nasal Cannula 4.0 36 11/07/20 09:00 Nasal Cannula 3.0 11/07/20 08:53 82 141/67 11/07/20 08:00 97.3 83 20 141/67 (91) 93 83 11/07/20 08:00 90 Intake and Output 11/07/20 11/08/20 19:00 07:00 Intake Total 540 ml Balance 540 ml Intake Oral 540 ml # Voids 2 2 # Bowel Movements 4 4 Laboratory Tests 11/07/20 07:24: White Blood Count 14.1H, Red Blood Count 3.44L, Hemoglobin 10.5L, Hematocrit 31.4L, Mean Corpuscular Volume 91, Mean Corpuscular Hemoglobin 30.5, Mean Corpuscular Hemoglobin Concent 33.5, Red Cell Distribution Width 12.6, Platelet Count 245, Mean Platelet Volume 6.9, Neutrophils (%) (Auto) 85.0H, Lymphocytes (%) (Auto) 6.9L, Monocytes (%) (Auto) 7.0, Eosinophils (%) (Auto) 0.0, Basophils (%) (Auto) 1.1, Sodium Level 143, Potassium Level 3.1L, Chloride Level 106, Carbon Dioxide Level 27, Anion Gap 10, Blood Urea Nitrogen 51H, Creatinine 3.5H, Estimat Glomerular Filtration Rate 17.1, Glucose Level 152H, Calcium Level 7.5L, Phosphorus Level 3.5, Total Bilirubin 0.6, Aspartate Amino Transf (AST/SGOT) 55H , Alanine Aminotransferase (ALT/SGPT) 41, Alkaline Phosphatase 75, C-Reactive Protein, Quantitative 1.9, Pro-B-Type Natriuretic Peptide 639H, Total Protein 5.4L, Albumin 1.9L, Globulin 3.5, Albumin/Globulin Ratio 0.5L 11/07/20 07:39: POC Whole Blood Glucose 197H 11/07/20 11:07: POC Whole Blood Glucose [Pending] 11/07/20 15:28: POC Whole Blood Glucose 242H 11/08/20 06:20: White Blood Count [Pending], Red Blood Count [Pending], Hemoglobin [Pending], Hematocrit [Pending], Mean Corpuscular Volume [Pending], Mean Corpuscular Hemoglobin [Pending], Mean Corpuscular Hemoglobin Concent [Pending], Red Cell Distribution Width [Pending], Platelet Count [Pending], Mean Platelet Volume [Pending], Neutrophils (%) (Auto) [Pending], Lymphocytes (%) (Auto) [Pending], Monocytes (%) (Auto) [Pending], Eosinophils (%) (Auto) [Pending], Basophils (%) (Auto) [Pending], Sodium Level [Pending], Potassium Level [Pending], Chloride Level [Pending], Carbon Dioxide Level [Pending], Blood Urea Nitrogen [Pending], Creatinine [Pending], Estimat Glomerular Filtration Rate [Pending], Glucose Level [Pending], Uric Acid [Pending], Calcium Level [Pending], Phosphorus Level [Pending], Magnesium Level [Pending], Total Bilirubin [Pending], Aspartate Amino Transf (AST/SGOT) [Pending], Alanine Aminotransferase (ALT/SGPT) [Pending], Alkaline Phosphatase [Pending], C-Reactive Protein, Quantitative [Pending], Pro-B-Type Natriuretic Peptide [Pending], Total Protein [Pending], Albumin [Pending], Globulin [Pending] Height (Feet): 5 Height (Inches): 5.00 Weight (Pounds): 150 Objective Current Medications Medications (Trade) Dose Ordered Sig/Manasa Route PRN Reason Start Time Stop Time Status Last Admin Dose Admin Acetaminophen (Tylenol) 500 mg Q4H PRN ORAL For Pain 11/01/20 01:00 12/01/20 00:59 11/01/20 18:50 Acetaminophen (Tylenol) 650 mg Q4H PRN RECTAL Temp >100.5 11/01/20 21:30 12/01/20 21:29 Allopurinol (Zyloprim) 200 mg DAILY ORAL 11/01/20 16:00 12/01/20 15:59 11/07/20 08:51 Amiodarone HCl (Cordarone) 400 mg DAILY ORAL 11/05/20 18:30 02/01/21 08:59 11/07/20 08:53 Chlorhexidine Gluconate (María Elena-Hex 2%) 1 applic DAILY@2000 TOPIC 11/04/20 20:00 02/02/21 19:59 11/07/20 20:00 Clonidine HCl (Catapres Tab) 0.1 mg Q4H PRN ORAL bp over 160 syst 10/31/20 17:45 01/29/21 17:44 11/01/20 09:20 Dexamethasone Sodium Phosphate (Decadron 10mg/ ml Inj) 6 mg DAILY IV 11/03/20 09:00 11/13/20 08:59 11/07/20 08:50 Dextrose (Dextrose 50%) 25 ml Q30M PRN IV Hypoglycemia 11/01/20 07:15 01/30/21 07:14 Dextrose (Dextrose 50%) 50 ml Q30M PRN IV Hypoglycemia 11/01/20 07:15 01/30/21 07:14 Diltiazem HCl (Cardizem Tab) 90 mg BID ORAL 11/07/20 10:15 12/02/20 17:59 11/07/20 17:23 Docusate Sodium (Colace) 100 mg TWICE A DAY ORAL 10/31/20 18:00 11/30/20 17:59 11/07/20 08:52 Haloperidol Lactate (Haldol) 5 mg Q6H PRN IM Agitation 11/06/20 21:30 12/21/20 21:29 11/07/20 21:39 Insulin Aspart (NovoLOG) BEFORE MEALS AND HS SUBQ 11/01/20 11:30 01/30/21 11:29 11/07/20 16:30 Insulin Aspart (NovoLOG) 8 units NOVOTIAC SUBQ 11/06/20 11:50 01/30/21 11:49 11/07/20 17:16 Insulin Detemir (Levemir) 24 units DAILY SUBQ 11/01/20 09:00 01/30/21 08:59 11/07/20 08:56 Methimazole (Tapazole) 10 mg DAILY ORAL 11/03/20 09:00 12/03/20 08:59 11/07/20 08:51 Metoprolol Tartrate (Lopressor) 50 mg Q12HR ORAL 11/01/20 21:00 01/30/21 20:59 11/07/20 21:00 Ondansetron HCl (Zofran) 4 mg Q6H PRN IVP Nausea & Vomiting 11/07/20 16:30 12/07/20 16:29 11/07/20 17:28 Pantoprazole (Protonix) 40 mg BID ORAL 10/31/20 18:00 11/30/20 17:44 11/07/20 17:23 Sitagliptin Phosphate (Januvia) 25 mg ACBREAKFAST ORAL 11/06/20 06:30 12/06/20 06:29 11/07/20 05:12 Tamsulosin HCl (Flomax) 0.4 mg BID ORAL 11/03/20 12:00 12/03/20 11:59 11/07/20 17:23 Assessment/Plan Problem List: (1) Abnormal thyroid blood test ICD Codes: R79.89 - Other specified abnormal findings of blood chemistry SNOMED: 859457138, [id number] (2) Diabetes mellitus out of control ICD Codes: E11.65 - Type 2 diabetes mellitus with hyperglycemia SNOMED: 03660731, 279019306 (3) Renal failure (ARF), acute on chronic ICD Codes: N17.9 - Acute kidney failure, unspecified; N18.9 - Chronic kidney disease, unspecified SNOMED: 219513098 (4) COVID-19 virus infection ICD Codes: U07.1 - COVID-19 SNOMED: 736721942 (5) DKA (diabetic ketoacidoses) ICD Codes: E11.10 - Type 2 diabetes mellitus with ketoacidosis without coma SNOMED: 610851910, 54071326 (6) NSTEMI (non-ST elevated myocardial infarction) ICD Codes: I21.4 - Non-ST elevation (NSTEMI) myocardial infarction SNOMED: 11047398 Status: progressing, unchanged Assessment/Plan: continue Levemir 24 units qam continue Novolog 8 units ac tid + SSI continue Januvia 25 mg daily continue Tapazole 10 mg daily TSI pending Markus Tamez MD Nov 08, 2020 07:19
[2020-11-08 07:47] LABS: ALBUMIN 1.9 G/DL (3.4-5.0); ALBUMIN/GLOBULIN RATIO 0.5 (1.0-2.7); BILIRUBIN,TOTAL 0.7 MG/DL (0.2-1.0); CALCIUM 7.6 MG/DL (8.5-10.1); CREATININE 3.4 MG/DL (0.55-1.30); PHOSPHORUS 4.5 MG/DL (2.5-4.9); POTASSIUM 3.3 MMOL/L (3.5-5.1)
[2020-11-08 08:00] VITALS: BP 136/75
[2020-11-08] MEDS: dilTIAZem HCl 90mg tab ORAL SCH ×2 (09:00→17:14)
[2020-11-08] MEDS: Metoprolol Tartrate 50mg tab ORAL SCH ×2 (09:00→20:42)
[2020-11-08] MEDS: Amiodarone 200mg tab ORAL SCH (09:00)
[2020-11-08] MEDS: dexAMETHasone 10mg/ml Inj IV SCH (09:33)
[2020-11-08] MEDS: Docusate 100mg cap ORAL SCH ×2 (09:34→17:14)
[2020-11-08] MEDS: Tamsulosin 0.4mg cap ORAL SCH ×2 (09:34→17:14)
[2020-11-08] MEDS: methIMAzole 10mg tab ORAL SCH (09:35)
[2020-11-08] MEDS: Allopurinol 100mg Tab ORAL SCH (09:36)
--- NOTE | 2020-11-08 10:28 | Pulmonology Progress Note ---
Subjective ROS Limited/Unobtainable: Yes Interval Events: none major reported per nursing Constitutional: Denies: fever Gastrointestinal/Abdominal: Reports: diarrhea Allergies: Coded Allergies: No Known Allergies (Unverified , 10/31/20) Objective Last 24 Hour Vital Signs Date Time Temp Pulse Resp B/P (MAP) Pulse Ox O2 Delivery O2 Flow Rate FiO2 11/08/20 08:00 97.6 67 20 136/75 (95) 97 11/08/20 04:00 97.0 62 20 143/75 (97) 98 11/08/20 04:00 61 11/08/20 00:00 64 11/08/20 00:00 97.5 60 20 121/58 (79) 95 11/07/20 22:32 98 Nasal Cannula 4.0 36 11/07/20 21:00 69 138/67 11/07/20 21:00 Nasal Cannula 3.0 11/07/20 20:00 63 11/07/20 20:00 97.7 69 20 138/67 (90) 95 11/07/20 17:23 82 129/59 11/07/20 16:00 66 11/07/20 16:00 97.1 64 20 129/59 (82) 96 64 11/07/20 12:00 79 11/07/20 12:00 96.9 82 20 145/62 (89) 95 82 Intake and Output 11/07/20 11/08/20 19:00 07:00 Intake Total 540 ml Balance 540 ml Intake Oral 540 ml # Voids 2 2 # Bowel Movements 4 4 Objective saturating at 96-97% on 3L NC General Appearance: WD/WN, no acute distress HEENT: atraumatic Respiratory: chest wall non-tender Cardiovascular: regular rhythm, tachycardia Abdomen: soft, non tender Laboratory Tests 11/07/20 11:07: POC Whole Blood Glucose [Pending] 11/07/20 15:28: POC Whole Blood Glucose 242H 11/08/20 06:20: White Blood Count 15.5H, Red Blood Count 3.26L, Hemoglobin 10.0L, Hematocrit 31.1L, Mean Corpuscular Volume 96, Mean Corpuscular Hemoglobin 30.6, Mean Corpuscular Hemoglobin Concent 32.1, Red Cell Distribution Width 12.9, Platelet Count 240, Mean Platelet Volume 7.0, Neutrophils (%) (Auto) , Lymphocytes (%) (Auto) , Monocytes (%) (Auto) , Eosinophils (%) (Auto) , Basophils (%) (Auto) , Neutrophils % (Manual) [Pending], Lymphocytes % (Manual) [Pending], Platelet Estimate [Pending], Platelet Morphology [Pending], Sodium Level 144, Potassium Level 3.3L, Chloride Level 107, Carbon Dioxide Level 28, Anion Gap 9, Blood Urea Nitrogen 55H, Creatinine 3.4H, Estimat Glomerular Filtration Rate 17.7, Glucose Level 103, Uric Acid 3.8, Calcium Level 7.6L, Phosphorus Level 4.5, Magnesium Level 2.0, Total Bilirubin 0.7, Aspartate Amino Transf (AST/SGOT) 68H, Alanine Aminotransferase (ALT/SGPT) 62, Alkaline Phosphatase 73, C-Reactive Protein, Quantitative 1.7H, Pro-B-Type Natriuretic Peptide 1210H, Total Protein 5.4L, Albumin 1.9L, Globulin 3.5, Albumin/Globulin Ratio 0.5L Current Medications Medications (Trade) Dose Ordered Sig/Manasa Route PRN Reason Start Time Stop Time Status Last Admin Dose Admin Acetaminophen (Tylenol) 500 mg Q4H PRN ORAL For Pain 11/01/20 01:00 12/01/20 00:59 11/01/20 18:50 Acetaminophen (Tylenol) 650 mg Q4H PRN RECTAL Temp >100.5 11/01/20 21:30 12/01/20 21:29 Allopurinol (Zyloprim) 200 mg DAILY ORAL 11/01/20 16:00 12/01/20 15:59 11/08/20 09:36 Amiodarone HCl (Cordarone) 400 mg DAILY ORAL 11/05/20 18:30 02/01/21 08:59 11/07/20 08:53 Chlorhexidine Gluconate (María Elena-Hex 2%) 1 applic DAILY@2000 TOPIC 11/04/20 20:00 02/02/21 19:59 11/07/20 20:00 Clonidine HCl (Catapres Tab) 0.1 mg Q4H PRN ORAL bp over 160 syst 10/31/20 17:45 01/29/21 17:44 11/01/20 09:20 Dexamethasone Sodium Phosphate (Decadron 10mg/ ml Inj) 6 mg DAILY IV 11/03/20 09:00 11/13/20 08:59 11/08/20 09:33 Dextrose (Dextrose 50%) 25 ml Q30M PRN IV Hypoglycemia 11/01/20 07:15 01/30/21 07:14 Dextrose (Dextrose 50%) 50 ml Q30M PRN IV Hypoglycemia 11/01/20 07:15 01/30/21 07:14 Diltiazem HCl (Cardizem Tab) 90 mg BID ORAL 11/07/20 10:15 12/02/20 17:59 11/07/20 17:23 Docusate Sodium (Colace) 100 mg TWICE A DAY ORAL 10/31/20 18:00 11/30/20 17:59 11/08/20 09:34 Haloperidol Lactate (Haldol) 5 mg Q6H PRN IM Agitation 11/06/20 21:30 12/21/20 21:29 11/07/20 21:39 Insulin Aspart (NovoLOG) BEFORE MEALS AND HS SUBQ 11/01/20 11:30 01/30/21 11:29 11/07/20 16:30 Insulin Aspart (NovoLOG) 8 units NOVOTIAC SUBQ 11/06/20 11:50 01/30/21 11:49 11/07/20 17:16 Insulin Detemir (Levemir) 24 units DAILY SUBQ 11/01/20 09:00 01/30/21 08:59 11/07/20 08:56 Methimazole (Tapazole) 10 mg DAILY ORAL 11/03/20 09:00 12/03/20 08:59 11/08/20 09:35 Metoprolol Tartrate (Lopressor) 50 mg Q12HR ORAL 11/01/20 21:00 01/30/21 20:59 11/07/20 21:00 Ondansetron HCl (Zofran) 4 mg Q6H PRN IVP Nausea & Vomiting 11/07/20 16:30 12/07/20 16:29 11/07/20 17:28 Pantoprazole (Protonix) 40 mg BID ORAL 10/31/20 18:00 11/30/20 17:44 11/08/20 09:35 Sitagliptin Phosphate (Januvia) 25 mg ACBREAKFAST ORAL 11/06/20 06:30 12/06/20 06:29 11/07/20 05:12 Tamsulosin HCl (Flomax) 0.4 mg BID ORAL 11/03/20 12:00 12/03/20 11:59 11/08/20 09:34 Assessment/Plan Assessment/Plan 1. Non-ST elevation myocardial infarction. - cardiology following 2. Diabetic ketoacidosis - seen by endocrinology - continue fluids - on insulin 3. Atrial flutter with rapid ventricular response. - Continue metoprolol 50 mg b.i.d. 4. COVID positive pneumonia. - on Decadron (11/03-) - Supplemental O2 - saturating at 95-96% on 3L NC; wean down as tolerated - CXR 11/04 developing b/l infilitrates 5. Renal failure with creatinine of 3.5. - nephrology following 6. Accelerated hypertension. 7. Hyperthyroidism - Dr. Tamez following DVT ppx - Lovenox The care for this patient was discussed with my supervising physician Time spent for this case was approximately 31 minutes Singh Buchanan Nov 08, 2020 10:28
--- NOTE | 2020-11-08 10:59 | Infectious Diseases Prog Note ---
Assessment/Plan Assessment/Plan A; COVID19 pneumonia Hypoxemia Acute renal failure Rhabdomyolysis Diarrhea, C. difficile negative DKA Hyperthyroidism Anemia Leukocytosis P; Continue Dexamethasone Subjective ROS Limited/Unobtainable: Yes Neurologic: Reports: confusion, other - on restraint Allergies: Coded Allergies: No Known Allergies (Unverified , 10/31/20) Objective Last 24 Hour Vital Signs Date Time Temp Pulse Resp B/P (MAP) Pulse Ox O2 Delivery O2 Flow Rate FiO2 11/08/20 09:00 67 136/75 11/08/20 09:00 67 136/75 11/08/20 08:00 97.6 67 20 136/75 (95) 97 11/08/20 04:00 97.0 62 20 143/75 (97) 98 11/08/20 04:00 61 11/08/20 00:00 64 11/08/20 00:00 97.5 60 20 121/58 (79) 95 11/07/20 22:32 98 Nasal Cannula 4.0 36 11/07/20 21:00 69 138/67 11/07/20 21:00 Nasal Cannula 3.0 11/07/20 20:00 63 11/07/20 20:00 97.7 69 20 138/67 (90) 95 11/07/20 17:23 82 129/59 11/07/20 16:00 66 11/07/20 16:00 97.1 64 20 129/59 (82) 96 64 11/07/20 12:00 79 11/07/20 12:00 96.9 82 20 145/62 (89) 95 82 Height (Feet): 5 Height (Inches): 5.00 Weight (Pounds): 150 HEENT: mucous membranes moist Respiratory/Chest: other - oxygen by nasal cannula Cardiovascular: normal rate Abdomen: soft, non tender Extremities: no edema Neurologic/Psychiatric: other - sleeping Laboratory Tests Test 11/07/20 11:07 11/07/20 15:28 11/08/20 06:20 POC Whole Blood Glucose Pending 242 MG/DL (74-106) H White Blood Count 15.5 K/UL (4.8-10.8) H Red Blood Count 3.26 M/UL (4.70-6.10) L Hemoglobin 10.0 G/DL (14.2-18.0) L Hematocrit 31.1 % (42.0-52.0) L Mean Corpuscular Volume 96 FL (80-99) Mean Corpuscular Hemoglobin 30.6 PG (27.0-31.0) Mean Corpuscular Hemoglobin Concent 32.1 G/DL (32.0-36.0) Red Cell Distribution Width 12.9 % (11.6-14.8) Platelet Count 240 K/UL (150-450) Mean Platelet Volume 7.0 FL (6.5-10.1) Neutrophils (%) (Auto) % (45.0-75.0) Lymphocytes (%) (Auto) % (20.0-45.0) Monocytes (%) (Auto) % (1.0-10.0) Eosinophils (%) (Auto) % (0.0-3.0) Basophils (%) (Auto) % (0.0-2.0) Differential Total Cells Counted 100 Neutrophils % (Manual) 87 % (45-75) H Lymphocytes % (Manual) 4 % (20-45) L Monocytes % (Manual) 9 % (1-10) Eosinophils % (Manual) 0 % (0-3) Basophils % (Manual) 0 % (0-2) Band Neutrophils 0 % (0-8) Platelet Estimate Adequate Platelet Morphology Normal Hypochromasia 1+ Sodium Level 144 MMOL/L (136-145) Potassium Level 3.3 MMOL/L (3.5-5.1) L Chloride Level 107 MMOL/L (98-107) Carbon Dioxide Level 28 MMOL/L (21-32) Anion Gap 9 mmol/L (5-15) Blood Urea Nitrogen 55 mg/dL (7-18) H Creatinine 3.4 MG/DL (0.55-1.30) H Estimat Glomerular Filtration Rate 17.7 mL/min (>60) Glucose Level 103 MG/DL (74-106) Uric Acid 3.8 MG/DL (2.6-7.2) Calcium Level 7.6 MG/DL (8.5-10.1) L Phosphorus Level 4.5 MG/DL (2.5-4.9) Magnesium Level 2.0 MG/DL (1.8-2.4) Total Bilirubin 0.7 MG/DL (0.2-1.0) Aspartate Amino Transf (AST/SGOT) 68 U/L (15-37) H Alanine Aminotransferase (ALT/SGPT) 62 U/L (12-78) Alkaline Phosphatase 73 U/L (46-116) C-Reactive Protein, Quantitative 1.7 mg/dL (0.00-0.90) H Pro-B-Type Natriuretic Peptide 1210 pg/mL (0-125) H Total Protein 5.4 G/DL (6.4-8.2) L Albumin 1.9 G/DL (3.4-5.0) L Globulin 3.5 g/dL Albumin/Globulin Ratio 0.5 (1.0-2.7) L Current Medications Medications (Trade) Dose Ordered Sig/Manasa Route PRN Reason Start Time Stop Time Status Last Admin Dose Admin Acetaminophen (Tylenol) 500 mg Q4H PRN ORAL For Pain 11/01/20 01:00 12/01/20 00:59 11/01/20 18:50 Acetaminophen (Tylenol) 650 mg Q4H PRN RECTAL Temp >100.5 11/01/20 21:30 12/01/20 21:29 Allopurinol (Zyloprim) 200 mg DAILY ORAL 11/01/20 16:00 12/01/20 15:59 11/08/20 09:36 Amiodarone HCl (Cordarone) 400 mg DAILY ORAL 11/05/20 18:30 02/01/21 08:59 11/07/20 08:53 Chlorhexidine Gluconate (María Elena-Hex 2%) 1 applic DAILY@2000 TOPIC 11/04/20 20:00 02/02/21 19:59 11/07/20 20:00 Clonidine HCl (Catapres Tab) 0.1 mg Q4H PRN ORAL bp over 160 syst 10/31/20 17:45 01/29/21 17:44 11/01/20 09:20 Dexamethasone Sodium Phosphate (Decadron 10mg/ ml Inj) 6 mg DAILY IV 11/03/20 09:00 11/13/20 08:59 11/08/20 09:33 Dextrose (Dextrose 50%) 25 ml Q30M PRN IV Hypoglycemia 11/01/20 07:15 01/30/21 07:14 Dextrose (Dextrose 50%) 50 ml Q30M PRN IV Hypoglycemia 11/01/20 07:15 01/30/21 07:14 Diltiazem HCl (Cardizem Tab) 90 mg BID ORAL 11/07/20 10:15 12/02/20 17:59 11/07/20 17:23 Docusate Sodium (Colace) 100 mg TWICE A DAY ORAL 10/31/20 18:00 11/30/20 17:59 11/08/20 09:34 Haloperidol Lactate (Haldol) 5 mg Q6H PRN IM Agitation 11/06/20 21:30 12/21/20 21:29 11/07/20 21:39 Insulin Aspart (NovoLOG) BEFORE MEALS AND HS SUBQ 11/01/20 11:30 01/30/21 11:29 11/07/20 16:30 Insulin Aspart (NovoLOG) 8 units NOVOTIAC SUBQ 11/06/20 11:50 01/30/21 11:49 11/07/20 17:16 Insulin Detemir (Levemir) 24 units DAILY SUBQ 11/01/20 09:00 01/30/21 08:59 11/07/20 08:56 Methimazole (Tapazole) 10 mg DAILY ORAL 11/03/20 09:00 12/03/20 08:59 11/08/20 09:35 Metoprolol Tartrate (Lopressor) 50 mg Q12HR ORAL 11/01/20 21:00 01/30/21 20:59 11/07/20 21:00 Ondansetron HCl (Zofran) 4 mg Q6H PRN IVP Nausea & Vomiting 11/07/20 16:30 12/07/20 16:29 11/07/20 17:28 Pantoprazole (Protonix) 40 mg BID ORAL 10/31/20 18:00 11/30/20 17:44 11/08/20 09:35 Sitagliptin Phosphate (Januvia) 25 mg ACBREAKFAST ORAL 11/06/20 06:30 12/06/20 06:29 11/07/20 05:12 Tamsulosin HCl (Flomax) 0.4 mg BID ORAL 11/03/20 12:00 12/03/20 11:59 11/08/20 09:34 Reji Connelly MD Nov 08, 2020 10:59
[2020-11-08 12:00] VITALS: BP 144/75
[2020-11-08] MEDS: Levemir Flexpen SUBQ SCH (12:01)
--- NOTE | 2020-11-08 12:07 | Cardiac Electrophysiology PN ---
Assessment/Plan Assessment/Plan 1. NSTEMI with troponin of 0.25 and 0.35 in this patient with DKA as well as atrial flutter with rapid ventricular response. On metoprolol 50 mg b.i.d. EF 65% 2. Atrial flutter with RVR On metoprolol 50 mg bid, Cardizem 90 bid and Amiodarone 400 po daily Eliquis held for hematuria 3. Diabetic ketoacidosis with glucose of more than 1000. 4. Accelerated hypertension. On Lopressor 50 bid and Cardizem 90 bid 5. COVID positive pneumonia. 6. Acute Renal failure in the setting of total CK of 1900, maybe rhabdomyolysis- induced renal failure. On HD via RFV Yazan by Dr. Ina ROTHMAN RN Subjective Subjective Had RFV Yazan catheter placement and HD in covid isolation. On 3 liter NC. In SR on Amio, Cardizem and metoprolol. Off Eliquis due to hematuria Objective Last 24 Hour Vital Signs Date Time Temp Pulse Resp B/P (MAP) Pulse Ox O2 Delivery O2 Flow Rate FiO2 11/08/20 09:00 Nasal Cannula 3.0 11/08/20 09:00 67 136/75 11/08/20 09:00 67 136/75 11/08/20 08:00 55 11/08/20 08:00 97.6 67 20 136/75 (95) 97 11/08/20 04:00 97.0 62 20 143/75 (97) 98 11/08/20 04:00 61 11/08/20 00:00 64 11/08/20 00:00 97.5 60 20 121/58 (79) 95 11/07/20 22:32 98 Nasal Cannula 4.0 36 11/07/20 21:00 69 138/67 11/07/20 21:00 Nasal Cannula 3.0 11/07/20 20:00 63 11/07/20 20:00 97.7 69 20 138/67 (90) 95 11/07/20 17:23 82 129/59 11/07/20 16:00 66 11/07/20 16:00 97.1 64 20 129/59 (82) 96 64 Intake and Output 11/07/20 11/08/20 19:00 07:00 Intake Total 540 ml Balance 540 ml Intake Oral 540 ml # Voids 2 2 # Bowel Movements 4 4 Laboratory Tests Test 11/07/20 15:28 11/08/20 06:20 11/08/20 11:51 POC Whole Blood Glucose 242 MG/DL (74-106) H 213 MG/DL (74-106) H White Blood Count 15.5 K/UL (4.8-10.8) H Red Blood Count 3.26 M/UL (4.70-6.10) L Hemoglobin 10.0 G/DL (14.2-18.0) L Hematocrit 31.1 % (42.0-52.0) L Mean Corpuscular Volume 96 FL (80-99) Mean Corpuscular Hemoglobin 30.6 PG (27.0-31.0) Mean Corpuscular Hemoglobin Concent 32.1 G/DL (32.0-36.0) Red Cell Distribution Width 12.9 % (11.6-14.8) Platelet Count 240 K/UL (150-450) Mean Platelet Volume 7.0 FL (6.5-10.1) Neutrophils (%) (Auto) % (45.0-75.0) Lymphocytes (%) (Auto) % (20.0-45.0) Monocytes (%) (Auto) % (1.0-10.0) Eosinophils (%) (Auto) % (0.0-3.0) Basophils (%) (Auto) % (0.0-2.0) Differential Total Cells Counted 100 Neutrophils % (Manual) 87 % (45-75) H Lymphocytes % (Manual) 4 % (20-45) L Monocytes % (Manual) 9 % (1-10) Eosinophils % (Manual) 0 % (0-3) Basophils % (Manual) 0 % (0-2) Band Neutrophils 0 % (0-8) Platelet Estimate Adequate Platelet Morphology Normal Hypochromasia 1+ Sodium Level 144 MMOL/L (136-145) Potassium Level 3.3 MMOL/L (3.5-5.1) L Chloride Level 107 MMOL/L (98-107) Carbon Dioxide Level 28 MMOL/L (21-32) Anion Gap 9 mmol/L (5-15) Blood Urea Nitrogen 55 mg/dL (7-18) H Creatinine 3.4 MG/DL (0.55-1.30) H Estimat Glomerular Filtration Rate 17.7 mL/min (>60) Glucose Level 103 MG/DL (74-106) Uric Acid 3.8 MG/DL (2.6-7.2) Calcium Level 7.6 MG/DL (8.5-10.1) L Phosphorus Level 4.5 MG/DL (2.5-4.9) Magnesium Level 2.0 MG/DL (1.8-2.4) Total Bilirubin 0.7 MG/DL (0.2-1.0) Aspartate Amino Transf (AST/SGOT) 68 U/L (15-37) H Alanine Aminotransferase (ALT/SGPT) 62 U/L (12-78) Alkaline Phosphatase 73 U/L (46-116) C-Reactive Protein, Quantitative 1.7 mg/dL (0.00-0.90) H Pro-B-Type Natriuretic Peptide 1210 pg/mL (0-125) H Total Protein 5.4 G/DL (6.4-8.2) L Albumin 1.9 G/DL (3.4-5.0) L Globulin 3.5 g/dL Albumin/Globulin Ratio 0.5 (1.0-2.7) L Objective HEAD AND NECK: Shows no JVD. LUNGS: Clear. CARDIOVASCULAR: Shows regular S1 and S2 with no gallop. ABDOMEN: Soft. EXTREMITIES: Right groin Yazan. No pitting edema. Sivakumar Escalante MD Nov 08, 2020 12:07
[2020-11-08] MEDS ORDERED: Heparin Sod 1000 units/ml 10ml INJ PRN (13:26)
--- NOTE | 2020-11-08 13:29 | Nephrology Progress Note ---
Assessment/Plan Problem List: (1) Renal failure (ARF), acute on chronic (2) DKA (diabetic ketoacidoses) (3) COVID-19 virus infection (4) Rhabdomyolysis (5) Abnormal thyroid blood test (6) NSTEMI (non-ST elevated myocardial infarction) Assessment 75-year-old German male Covid positive Acute renal failure, most likely superimposed on chronic kidney disease Diabetes mellitus, presents with severe hyperglycemia and DKA History of hypertension Plan November 08: Labs reviewed. Serum creatinine is plateauing. Due for dialysis today. We will continue to monitor renal parameters and dialysis as needed. November 07: Labs reviewed. Serum creatinine rising. IV fluid discontinued. Dialysis for tomorrow. Continue per consultants. November 06: Labs reviewed. Blood pressure stable. Medication list reviewed. Dialysis as needed. November 05: Due for dialysis today. Labs are reviewed. Blood pressure is stable. Continue to monitor renal parameters. November 04: Patient was dialyzed yesterday. 1 L ultrafiltrated. Labs reviewed. Renal parameters stable. Will attempt dialysis again tomorrow. Medication list reviewed. November 03: Labs reviewed. Serum creatinine rising. Patient has hematuria. P atient on Eliquis. Will arrange for placement of dialysis catheter and attempt to dialyze. Will start Flomax since the patient could not have a Anand catheter. Continue to monitor renal parameters. Continue per consultants. Discussed with RN. Consent for placement of nontunneled catheter ordered. Patient is also on Tapazole for high thyroid hormone. CPK is lowering. November 02: Labs reviewed. Serum creatinine up to 4. In S DU now. On Cardizem drip. Measured creatinine clearance 14. Patient may lead towards dialysis. Continue to monitor renal parameters. November 01: Renal parameters improving. Blood sugar is improving. Continue to monitor electrolytes renal parameters and urine output. Aim to control blood sugar and blood pressure. Avoid nephrotoxic's. Monitor CPK as it is elevated. Previously: Anand catheter Blood sugar control Slow hydration Monitor renal parameters Kidney ultrasound no hydronephrosis 2D echocardiogram ejection fraction 60 to 65%. Per orders Subjective ROS Limited/Unobtainable: No Constitutional: Reports: malaise, weakness Objective Objective Last 24 Hour Vital Signs Date Time Temp Pulse Resp B/P (MAP) Pulse Ox O2 Delivery O2 Flow Rate FiO2 11/08/20 12:00 65 11/08/20 09:00 Nasal Cannula 3.0 11/08/20 09:00 67 136/75 11/08/20 09:00 67 136/75 11/08/20 08:00 55 11/08/20 08:00 97.6 67 20 136/75 (95) 97 11/08/20 04:00 97.0 62 20 143/75 (97) 98 11/08/20 04:00 61 11/08/20 00:00 64 11/08/20 00:00 97.5 60 20 121/58 (79) 95 11/07/20 22:32 98 Nasal Cannula 4.0 36 11/07/20 21:00 69 138/67 11/07/20 21:00 Nasal Cannula 3.0 11/07/20 20:00 63 11/07/20 20:00 97.7 69 20 138/67 (90) 95 11/07/20 17:23 82 129/59 11/07/20 16:00 66 11/07/20 16:00 97.1 64 20 129/59 (82) 96 64 Intake and Output 11/07/20 11/08/20 19:00 07:00 Intake Total 540 ml Balance 540 ml Intake Oral 540 ml # Voids 2 2 # Bowel Movements 4 4 Current Medications Medications (Trade) Dose Ordered Sig/Manasa Route PRN Reason Start Time Stop Time Status Last Admin Dose Admin Acetaminophen (Tylenol) 500 mg Q4H PRN ORAL For Pain 11/01/20 01:00 12/01/20 00:59 11/01/20 18:50 Acetaminophen (Tylenol) 650 mg Q4H PRN RECTAL Temp >100.5 11/01/20 21:30 12/01/20 21:29 Allopurinol (Zyloprim) 200 mg DAILY ORAL 11/01/20 16:00 12/01/20 15:59 11/08/20 09:36 Amiodarone HCl (Cordarone) 400 mg DAILY ORAL 11/05/20 18:30 02/01/21 08:59 11/07/20 08:53 Chlorhexidine Gluconate (María Elena-Hex 2%) 1 applic DAILY@2000 TOPIC 11/04/20 20:00 02/02/21 19:59 11/07/20 20:00 Clonidine HCl (Catapres Tab) 0.1 mg Q4H PRN ORAL bp over 160 syst 10/31/20 17:45 01/29/21 17:44 11/01/20 09:20 Dexamethasone Sodium Phosphate (Decadron 10mg/ ml Inj) 6 mg DAILY IV 11/03/20 09:00 11/13/20 08:59 11/08/20 09:33 Dextrose (Dextrose 50%) 25 ml Q30M PRN IV Hypoglycemia 11/01/20 07:15 01/30/21 07:14 Dextrose (Dextrose 50%) 50 ml Q30M PRN IV Hypoglycemia 11/01/20 07:15 01/30/21 07:14 Diltiazem HCl (Cardizem Tab) 90 mg BID ORAL 11/07/20 10:15 12/02/20 17:59 11/07/20 17:23 Docusate Sodium (Colace) 100 mg TWICE A DAY ORAL 10/31/20 18:00 11/30/20 17:59 11/08/20 09:34 Haloperidol Lactate (Haldol) 5 mg Q6H PRN IM Agitation 11/06/20 21:30 12/21/20 21:29 11/07/20 21:39 Heparin Sodium (Porcine) (Heparin Sod 1000 units/ml 10ml) 1,000 unit ONCE PRN INJ PROCEDURE 11/08/20 13:26 11/09/20 23:59 Insulin Aspart (NovoLOG) BEFORE MEALS AND HS SUBQ 11/01/20 11:30 01/30/21 11:29 11/08/20 12:07 Insulin Aspart (NovoLOG) 8 units NOVOTIAC SUBQ 11/06/20 11:50 01/30/21 11:49 11/08/20 12:08 Insulin Detemir (Levemir) 24 units DAILY SUBQ 11/01/20 09:00 01/30/21 08:59 11/08/20 12:01 Methimazole (Tapazole) 10 mg DAILY ORAL 11/03/20 09:00 12/03/20 08:59 11/08/20 09:35 Metoprolol Tartrate (Lopressor) 50 mg Q12HR ORAL 11/01/20 21:00 01/30/21 20:59 11/07/20 21:00 Ondansetron HCl (Zofran) 4 mg Q6H PRN IVP Nausea & Vomiting 11/07/20 16:30 12/07/20 16:29 11/07/20 17:28 Pantoprazole (Protonix) 40 mg BID ORAL 10/31/20 18:00 11/30/20 17:44 11/08/20 09:35 Sitagliptin Phosphate (Januvia) 25 mg ACBREAKFAST ORAL 11/06/20 06:30 12/06/20 06:29 11/07/20 05:12 Tamsulosin HCl (Flomax) 0.4 mg BID ORAL 11/03/20 12:00 12/03/20 11:59 11/08/20 09:34 Laboratory Tests 11/07/20 15:28: POC Whole Blood Glucose 242H 11/08/20 06:20: White Blood Count 15.5H, Red Blood Count 3.26L, Hemoglobin 10.0L, Hematocrit 31.1L, Mean Corpuscular Volume 96, Mean Corpuscular Hemoglobin 30.6, Mean Corpuscular Hemoglobin Concent 32.1, Red Cell Distribution Width 12.9, Platelet Count 240, Mean Platelet Volume 7.0, Neutrophils (%) (Auto) , Lymphocytes (%) (Auto) , Monocytes (%) (Auto) , Eosinophils (%) (Auto) , Basophils (%) (Auto) , Differential Total Cells Counted 100, Neutrophils % (Manual) 87H, Lymphocytes % (Manual) 4L, Monocytes % (Manual) 9, Eosinophils % (Manual) 0, Basophils % (Manual) 0, Band Neutrophils 0, Platelet Estimate Adequate, Platelet Morphology Normal, Hypochromasia 1+, Sodium Level 144, Potassium Level 3.3L, Chloride Level 107, Carbon Dioxide Level 28, Anion Gap 9, Blood Urea Nitrogen 55H, Creatinine 3.4H, Estimat Glomerular Filtration Rate 17.7, Glucose Level 103, Uric Acid 3.8, Calcium Level 7.6L, Phosphorus Level 4.5, Magnesium Level 2.0, Total Bilirubin 0.7, Aspartate Amino Transf (AST/SGOT) 68H, Alanine Aminotransferase (ALT/SGPT) 62, Alkaline Phosphatase 73, C-Reactive Protein, Quantitative 1.7H, Pro-B-Type Natriuretic Peptide 1210H, Total Protein 5.4L, Albumin 1.9L, Globulin 3.5, Albumin/Globulin Ratio 0.5L 11/08/20 11:51: POC Whole Blood Glucose 213H Height (Feet): 5 Height (Inches): 5.00 Weight (Pounds): 150 General Appearance: no apparent distress, lethargic EENT: other - On nasal cannula Cardiovascular: normal rate Respiratory/Chest: decreased breath sounds Abdomen: distended Garth Buckley MD Nov 08, 2020 13:28
[2020-11-08 16:00] VITALS: BP 143/86
--- NOTE | 2020-11-08 16:23 | Psychiatric Progress Note ---
Psychiatry Progress Note Psychiatry Progress Note Medications Current Medications Medications (Trade) Dose Ordered Sig/Manasa Route PRN Reason Start Time Stop Time Status Last Admin Dose Admin Acetaminophen (Tylenol) 500 mg Q4H PRN ORAL For Pain 11/01/20 01:00 12/01/20 00:59 11/01/20 18:50 Acetaminophen (Tylenol) 650 mg Q4H PRN RECTAL Temp >100.5 11/01/20 21:30 12/01/20 21:29 Allopurinol (Zyloprim) 200 mg DAILY ORAL 11/01/20 16:00 12/01/20 15:59 11/08/20 09:36 Amiodarone HCl (Cordarone) 400 mg DAILY ORAL 11/05/20 18:30 02/01/21 08:59 11/07/20 08:53 Chlorhexidine Gluconate (María Elena-Hex 2%) 1 applic DAILY@1999 TOPIC 11/04/20 20:00 02/02/21 19:59 11/07/20 20:00 Clonidine HCl (Catapres Tab) 0.1 mg Q4H PRN ORAL bp over 160 syst 10/31/20 17:45 01/29/21 17:44 11/01/20 09:20 Dexamethasone Sodium Phosphate (Decadron 10mg/ ml Inj) 6 mg DAILY IV 11/03/20 09:00 11/13/20 08:59 11/08/20 09:33 Dextrose (Dextrose 50%) 25 ml Q30M PRN IV Hypoglycemia 11/01/20 07:15 01/30/21 07:14 Dextrose (Dextrose 50%) 50 ml Q30M PRN IV Hypoglycemia 11/01/20 07:15 01/30/21 07:14 Diltiazem HCl (Cardizem Tab) 90 mg BID ORAL 11/07/20 10:15 12/02/20 17:59 11/07/20 17:23 Docusate Sodium (Colace) 100 mg TWICE A DAY ORAL 10/31/20 18:00 11/30/20 17:59 11/08/20 09:34 Haloperidol Lactate (Haldol) 5 mg Q6H PRN IM Agitation 11/06/20 21:30 12/21/20 21:29 11/07/20 21:39 Heparin Sodium (Porcine) (Heparin Sod 1000 units/ml 10ml) 1,000 unit ONCE PRN INJ PROCEDURE 11/08/20 13:26 11/09/20 23:59 Insulin Aspart (NovoLOG) BEFORE MEALS AND HS SUBQ 11/01/20 11:30 01/30/21 11:29 11/08/20 12:07 Insulin Aspart (NovoLOG) 8 units NOVOTIAC SUBQ 11/06/20 11:50 01/30/21 11:49 11/08/20 12:08 Insulin Detemir (Levemir) 24 units DAILY SUBQ 11/01/20 09:00 01/30/21 08:59 11/08/20 12:01 Methimazole (Tapazole) 10 mg DAILY ORAL 11/03/20 09:00 12/03/20 08:59 11/08/20 09:35 Metoprolol Tartrate (Lopressor) 50 mg Q12HR ORAL 11/01/20 21:00 01/30/21 20:59 11/07/20 21:00 Ondansetron HCl (Zofran) 4 mg Q6H PRN IVP Nausea & Vomiting 11/07/20 16:30 12/07/20 16:29 11/07/20 17:28 Pantoprazole (Protonix) 40 mg BID ORAL 10/31/20 18:00 11/30/20 17:44 11/08/20 09:35 Potassium Chloride (K-Dur) 20 meq TWICE A DAY ORAL 11/08/20 18:00 11/09/20 17:59 Sitagliptin Phosphate (Januvia) 25 mg ACBREAKFAST ORAL 11/06/20 06:30 12/06/20 06:29 11/07/20 05:12 Tamsulosin HCl (Flomax) 0.4 mg BID ORAL 11/03/20 12:00 12/03/20 11:59 11/08/20 09:34 Neurological/Psychiatric: Reports: anxiety, depressed, emotional problems Allergies: Coded Allergies: No Known Allergies (Unverified , 10/31/20) Objective Data Height (Feet): 5 Height (Inches): 5.00 Weight (Pounds): 150 General Appearance: confused, agitated Additional Comments: confused, disoriented, Kinyarwanda-speaking. Mood is agitated. Affect is flat. Thought process disorganized. Thought content, no suicidal, homicidal ideation. Cognition is impaired. Insight and judgment is impaired. ASSESSMENT: [place] I Acute toxic encephalopathy. Dementia. [place] II Deferred. [place] III COVID-19. [place] IV Low. [place] V 20 PLAN: 1. We will start the patient on soft restraints. 2. Continue to follow and readjust the meds. Assessment/Plan Status: progressing, unchanged Brigido Singh MD Nov 08, 2020 16:23
--- NOTE | 2020-11-08 16:58 | NUR ---
NURSE NOTES: pt remains calm and quiet in bed since AM. notified Dr. Soto the need to discontinue restraint. MD parra order. RN d/c restraint at this time. no skin breakdown noted. no acute distress noted on pt.
--- NOTE | 2020-11-08 19:29 | NUR ---
HAND-OFF: Report given to JACIEL.
--- NOTE | 2020-11-08 19:40 | NUR ---
NURSE NOTES: Patient received from ARPITA Moreno. Patient is sleeping in [place]. Patient is A/O 1-2, unable to make need known; Patient is Luxembourgish speaking only. Patient is on NC 3L saturating at 96%. No SOB or acute distress noted. Patient has IV on right AC 22G. Patient and flushed. No bleeding or erythema noted. . Patient placed on fall precautions. Bed locked and in lowest position, side rails up x3, and call light and belongings within reach. Will continue to monitor.
[2020-11-08 20:00] VITALS: BP 128/52
--- NOTE | 2020-11-08 20:14 | NUR ---
NURSE NOTES: Patient received from ARPITA Moreno. Patient is sleeping in Semi-[place]. Patient is A/O 1-2, unable to make need known; Patient is Persian speaking only. Patient is on NC 3L saturating at 96%. No SOB or acute distress noted. Patient has IV on right AC 22G. Patient and flushed. No bleeding or erythema noted. . Patient placed on fall precautions. Bed locked and in lowest position, side rails up x3, and call light and belongings within reach. Will continue to monitor. Addendum: 11/08/20 at 2017 by Deana Fay RN Wrong time stamp.
[2020-11-08] MEDS: Dyna-Hex 2% Top Sol 2oz TOPIC SCH (20:34)
--- NOTE | 2020-11-08 20:43 | Surgery Progress Note ---
Surgery Progress Note Subjective Procedure Performed Right femoral temporary hemodialysis catheter insertion Additional Comments worsening leukocytosis alb remains low renal insufficiency Objective Last 24 Hour Vital Signs Date Time Temp Pulse Resp B/P (MAP) Pulse Ox O2 Delivery O2 Flow Rate FiO2 11/08/20 17:14 65 144/75 11/08/20 16:00 80 11/08/20 16:00 97.6 77 20 143/86 (105) 98 11/08/20 12:00 65 11/08/20 12:00 97.7 70 20 144/75 (98) 95 11/08/20 09:00 Nasal Cannula 3.0 11/08/20 09:00 67 136/75 11/08/20 09:00 67 136/75 11/08/20 08:00 55 11/08/20 08:00 97.6 67 20 136/75 (95) 97 11/08/20 07:00 97 Nasal Cannula 4.0 36 11/08/20 04:00 97.0 62 20 143/75 (97) 98 11/08/20 04:00 61 11/08/20 00:00 64 11/08/20 00:00 97.5 60 20 121/58 (79) 95 11/07/20 22:32 98 Nasal Cannula 4.0 36 11/07/20 21:00 69 138/67 11/07/20 21:00 Nasal Cannula 3.0 I&O Intake and Output 11/07/20 11/08/20 19:00 07:00 Intake Total 540 ml Balance 540 ml Intake Oral 540 ml # Voids 2 2 # Bowel Movements 4 4 Dressing: saturated Cardiovascular: RSR Respiratory: decreased breath sounds Abdomen: soft, flat, non-tender, present bowel sounds, non-distended Extremities: no tenderness, no cyanosis Laboratory Tests Test 11/08/20 06:20 11/08/20 11:51 11/08/20 16:56 11/08/20 20:29 White Blood Count 15.5 K/UL (4.8-10.8) H Red Blood Count 3.26 M/UL (4.70-6.10) L Hemoglobin 10.0 G/DL (14.2-18.0) L Hematocrit 31.1 % (42.0-52.0) L Mean Corpuscular Volume 96 FL (80-99) Mean Corpuscular Hemoglobin 30.6 PG (27.0-31.0) Mean Corpuscular Hemoglobin Concent 32.1 G/DL (32.0-36.0) Red Cell Distribution Width 12.9 % (11.6-14.8) Platelet Count 240 K/UL (150-450) Mean Platelet Volume 7.0 FL (6.5-10.1) Neutrophils (%) (Auto) % (45.0-75.0) Lymphocytes (%) (Auto) % (20.0-45.0) Monocytes (%) (Auto) % (1.0-10.0) Eosinophils (%) (Auto) % (0.0-3.0) Basophils (%) (Auto) % (0.0-2.0) Differential Total Cells Counted 100 Neutrophils % (Manual) 87 % (45-75) H Lymphocytes % (Manual) 4 % (20-45) L Monocytes % (Manual) 9 % (1-10) Eosinophils % (Manual) 0 % (0-3) Basophils % (Manual) 0 % (0-2) Band Neutrophils 0 % (0-8) Platelet Estimate Adequate Platelet Morphology Normal Hypochromasia 1+ Sodium Level 144 MMOL/L (136-145) Potassium Level 3.3 MMOL/L (3.5-5.1) L Chloride Level 107 MMOL/L (98-107) Carbon Dioxide Level 28 MMOL/L (21-32) Anion Gap 9 mmol/L (5-15) Blood Urea Nitrogen 55 mg/dL (7-18) H Creatinine 3.4 MG/DL (0.55-1.30) H Estimat Glomerular Filtration Rate 17.7 mL/min (>60) Glucose Level 103 MG/DL (74-106) Uric Acid 3.8 MG/DL (2.6-7.2) Calcium Level 7.6 MG/DL (8.5-10.1) L Phosphorus Level 4.5 MG/DL (2.5-4.9) Magnesium Level 2.0 MG/DL (1.8-2.4) Total Bilirubin 0.7 MG/DL (0.2-1.0) Aspartate Amino Transf (AST/SGOT) 68 U/L (15-37) H Alanine Aminotransferase (ALT/SGPT) 62 U/L (12-78) Alkaline Phosphatase 73 U/L (46-116) C-Reactive Protein, Quantitative 1.7 mg/dL (0.00-0.90) H Pro-B-Type Natriuretic Peptide 1210 pg/mL (0-125) H Total Protein 5.4 G/DL (6.4-8.2) L Albumin 1.9 G/DL (3.4-5.0) L Globulin 3.5 g/dL Albumin/Globulin Ratio 0.5 (1.0-2.7) L POC Whole Blood Glucose 213 MG/DL (74-106) H 316 MG/DL (74-106) H 341 MG/DL (74-106) H Plan Problems: (1) DKA (diabetic ketoacidoses) (2) Renal failure (ARF), acute on chronic (3) COVID-19 virus infection Assessment & Plan: 75-year-old male Covid positive renal insufficiency recently had temporary dialysis catheter placement develop leukocytosis soon after. Vitals noted. Exam stable. Catheter was evaluated no acute active inflammatory or infectious process identified. Catheter is clean dry intact. The dressings are not saturated. There is no active bleeding identified. There is no signs of active infection. Leukocytosis anterior collated to medications currently given for COVID-19 infection. Will monitor closely to ensure no active development of infection or related to catheter placement. Thank you for let me participate patient's care will follow with recommendations trend leukocytosis cont dressings cont care plan as noted cont HD trend renal function (4) Rhabdomyolysis Assessment & Plan: DAILY ESTIMATED NEEDS: Needs based on DM, pulmonary 68.4kg 25-30 kcals/kg 1970-9305 total kcals 1-1.5 g protein/kg 68-102 g total protein 25-30 mL/kg 4220-0818 total fluid mLs NUTRITION DIAGNOSIS: Altered nutrition related lab values r/t DKA as evidenced by Uglu 4+ on adm, small acetone detected, BG 1087, A1C 8.1. CURRENT DIET: Renal + Ensure TID PO DIET RECOMMENDATIONS: With poor po rec LOW NA/ CCHO MED diet (texture as tolerated) ENTERAL NUTRITION RECOMMENDATIONS: Consider non oral feeds if part of POC w/ poor po intake ADDITIONAL RECOMMENDATIONS: 1) Recommend supplement w/ continued poor intake Nepro TID w/ elevated K 2) Monitor BG w/ poor po, pt at risk for hypoglycemia w/ insulin regimen 3) Maintain calibrated bed scale wts 4) Non oral feeds of part of POC, w/ continued poor to fair po intake Pt is A&O x1, on haldol (5) Diabetes mellitus out of control (6) Abnormal thyroid blood test (7) NSTEMI (non-ST elevated myocardial infarction) Norberto Steele Nov 08, 2020 20:43
--- NOTE | 2020-11-08 21:30 | NUR ---
NURSE NOTES: Patient pulled out right femoral central line (henry cath). Pressure was applied for 10mins. Bleeding was stopped. Dressing was applied to site. Patient was cleaned bedding was changed. Will monitor right femoral site frequently. No bleeding noted. Patient is still confused as base line. Will notify primary MD.
--- NOTE | 2020-11-08 22:10 | NUR ---
NURSE NOTES: Message Dr. Soto regarding patient pulling out Femoral Central Line. Dr. Soto said "let Dr. Buckley know and also call Dr. Singh re restraint order (both doctors are on the case)." Noted and cared out.
--- NOTE | 2020-11-08 22:22 | NUR ---
NURSE NOTES: Called Dr. Buckley and let him know that the patient pulled out his femoral central line and that the pt had dialysis today. Dr. Buckley ordered me to call ED MD is patient is not able to stop bleeding. No other orders given. Will continue to monitor patient Site.
--- NOTE | 2020-11-08 22:23 | NUR ---
NURSE NOTES: Called Dr. Singh and left a message letting her know that the patient pulled out his femoral central line and requested to re order bilateral wrist restraints. Will continue to monitor patient Site.
--- NOTE | 2020-11-08 22:40 | NUR ---
NURSE NOTES: Dr. Singh called back and I letting her know that the patient pulled out his femoral central line and requested to re order bilateral wrist restraints. Ordered bilateral wrist restraints for pulling devices and safety. Noted an carried out. Will continue to monitor patient Site.
--- NOTE | 2020-11-08 22:57 | General Progress Note ---
Subjective ROS Limited/Unobtainable: Yes Allergies: Coded Allergies: No Known Allergies (Unverified , 10/31/20) Objective Last 24 Hour Vital Signs Date Time Temp Pulse Resp B/P (MAP) Pulse Ox O2 Delivery O2 Flow Rate FiO2 11/08/20 20:42 76 128/52 11/08/20 17:14 65 144/75 11/08/20 16:00 80 11/08/20 16:00 97.6 77 20 143/86 (105) 98 11/08/20 12:00 65 11/08/20 12:00 97.7 70 20 144/75 (98) 95 11/08/20 09:00 Nasal Cannula 3.0 11/08/20 09:00 67 136/75 11/08/20 09:00 67 136/75 11/08/20 08:00 55 11/08/20 08:00 97.6 67 20 136/75 (95) 97 11/08/20 07:00 97 Nasal Cannula 4.0 36 11/08/20 04:00 97.0 62 20 143/75 (97) 98 11/08/20 04:00 61 11/08/20 00:00 64 11/08/20 00:00 97.5 60 20 121/58 (79) 95 Intake and Output 11/07/20 11/08/20 19:00 07:00 Intake Total 540 ml Balance 540 ml Intake Oral 540 ml # Voids 2 2 # Bowel Movements 4 4 Laboratory Tests 11/08/20 06:20: White Blood Count 15.5H, Red Blood Count 3.26L, Hemoglobin 10.0L, Hematocrit 3 1.1L, Mean Corpuscular Volume 96, Mean Corpuscular Hemoglobin 30.6, Mean Corpuscular Hemoglobin Concent 32.1, Red Cell Distribution Width 12.9, Platelet Count 240, Mean Platelet Volume 7.0, Neutrophils (%) (Auto) , Lymphocytes (%) (Auto) , Monocytes (%) (Auto) , Eosinophils (%) (Auto) , Basophils (%) (Auto) , Differential Total Cells Counted 100, Neutrophils % (Manual) 87H, Lymphocytes % (Manual) 4L, Monocytes % (Manual) 9, Eosinophils % (Manual) 0, Basophils % (Manual) 0, Band Neutrophils 0, Platelet Estimate Adequate, Platelet Morphology Normal, Hypochromasia 1+, Sodium Level 144, Potassium Level 3.3L, Chloride Level 107, Carbon Dioxide Level 28, Anion Gap 9, Blood Urea Nitrogen 55H, Creatinine 3.4H, Estimat Glomerular Filtration Rate 17.7, Glucose Level 103, Uric Acid 3.8, Calcium Level 7.6L, Phosphorus Level 4.5, Magnesium Level 2.0, Total Bilirubin 0.7, Aspartate Amino Transf (AST/SGOT) 68H, Alanine Aminotransferase (ALT/SGPT) 62, Alkaline Phosphatase 73, C-Reactive Protein, Quantitative 1.7H, Pro-B-Type Natriuretic Peptide 1210H, Total Protein 5.4L, Albumin 1.9L, Globulin 3.5, Albumin/Globulin Ratio 0.5L 11/08/20 11:51: POC Whole Blood Glucose 213H 11/08/20 16:56: POC Whole Blood Glucose 316H 11/08/20 20:29: POC Whole Blood Glucose 341H Height (Feet): 5 Height (Inches): 5.00 Weight (Pounds): 150 Assessment/Plan Problem List: (1) Renal failure (ARF), acute on chronic ICD Codes: N17.9 - Acute kidney failure, unspecified; N18.9 - Chronic kidney disease, unspecified SNOMED: 653508266 (2) DKA (diabetic ketoacidoses) ICD Codes: E11.10 - Type 2 diabetes mellitus with ketoacidosis without coma SNOMED: 721423260, 53567482 (3) COVID-19 virus infection ICD Codes: U07.1 - COVID-19 SNOMED: 053811436 (4) Rhabdomyolysis ICD Codes: M62.82 - Rhabdomyolysis SNOMED: 093493401 (5) Diabetes mellitus out of control ICD Codes: E11.65 - Type 2 diabetes mellitus with hyperglycemia SNOMED: 28902915, 072666151 (6) Abnormal thyroid blood test ICD Codes: R79.89 - Other specified abnormal findings of blood chemistry SNOMED: 916802693, [id number] (7) NSTEMI (non-ST elevated myocardial infarction) ICD Codes: I21.4 - Non-ST elevation (NSTEMI) myocardial infarction SNOMED: 15990343 Status: progressing, unchanged Assessment/Plan: covid + dka esrd removed femoral line restraint per dr steiner agitated check lytes rhabdomyosis fl niddm Corey Soto MD Nov 08, 2020 22:57
[2020-11-09] VITALS: BP 117/60
--- NOTE | 2020-11-09 | NUR ---
NURSE NOTES: Applied bilateral wrist restraints. patent sensation intact, bilateral pulses palpated, no swelling noted, no bruising noted. will continue to monitor,
[2020-11-09] MEDS: Haloperidol 5mg/ml Inj IM PRN (02:40)
[2020-11-09 04:00] VITALS: BP 117/60
[2020-11-09] MEDS: sitaGLIPtin 25mg tab ORAL SCH (06:10)
[2020-11-09] MEDS: NovoLOG Insulin Flexpen SUBQ SCH ×7 (06:12→20:35)
--- NOTE | 2020-11-09 06:19 | General Progress Note ---
Subjective ROS Limited/Unobtainable: Yes Allergies: Coded Allergies: No Known Allergies (Unverified , 10/31/20) Subjective events noted interval notes reviewed glucose values high in COVID isolation Item Value Date Time Bedside Blood Glucose 335 mg/dl H 11/09/20 0612 Bedside Blood Glucose 341 mg/dl H 11/08/20 2100 Bedside Blood Glucose 316 mg/dl H 11/08/20 1710 Bedside Blood Glucose 213 mg/dl H 11/08/20 1208 Bedside Blood Glucose 110 mg/dl 11/08/20 0630 Objective Last 24 Hour Vital Signs Date Time Temp Pulse Resp B/P (MAP) Pulse Ox O2 Delivery O2 Flow Rate FiO2 11/09/20 04:00 97.9 61 17 117/60 (79) 94 11/09/20 03:08 73 11/09/20 00:04 58 11/09/20 00:00 97.9 61 17 117/60 (79) 94 11/09/20 00:00 80 11/09/20 00:00 58 11/08/20 21:00 Nasal Cannula 3.0 11/08/20 20:42 76 128/52 11/08/20 20:00 96.1 76 18 128/52 (77) 95 11/08/20 17:14 65 144/75 11/08/20 16:00 80 11/08/20 16:00 97.6 77 20 143/86 (105) 98 11/08/20 12:00 65 11/08/20 12:00 97.7 70 20 144/75 (98) 95 11/08/20 09:00 Nasal Cannula 3.0 11/08/20 09:00 67 136/75 11/08/20 09:00 67 136/75 11/08/20 08:00 55 11/08/20 08:00 97.6 67 20 136/75 (95) 97 11/08/20 07:00 97 Nasal Cannula 4.0 36 Intake and Output 11/08/20 11/09/20 19:00 07:00 Output Total 2000 ml Balance -2000 ml Hemodialysis UF 2000 ml # Bowel Movements 3 3 Laboratory Tests 11/08/20 06:20: White Blood Count 15.5H, Red Blood Count 3.26L, Hemoglobin 10.0L, Hematocrit 3 1.1L, Mean Corpuscular Volume 96, Mean Corpuscular Hemoglobin 30.6, Mean Corpuscular Hemoglobin Concent 32.1, Red Cell Distribution Width 12.9, Platelet Count 240, Mean Platelet Volume 7.0, Neutrophils (%) (Auto) , Lymphocytes (%) (Auto) , Monocytes (%) (Auto) , Eosinophils (%) (Auto) , Basophils (%) (Auto) , Differential Total Cells Counted 100, Neutrophils % (Manual) 87H, Lymphocytes % (Manual) 4L, Monocytes % (Manual) 9, Eosinophils % (Manual) 0, Basophils % (Manual) 0, Band Neutrophils 0, Platelet Estimate Adequate, Platelet Morphology Normal, Hypochromasia 1+, Sodium Level 144, Potassium Level 3.3L, Chloride Level 107, Carbon Dioxide Level 28, Anion Gap 9, Blood Urea Nitrogen 55H, Creatinine 3.4H, Estimat Glomerular Filtration Rate 17.7, Glucose Level 103, Uric Acid 3.8, Calcium Level 7.6L, Phosphorus Level 4.5, Magnesium Level 2.0, Total Bilirubin 0.7, Aspartate Amino Transf (AST/SGOT) 68H, Alanine Aminotransferase (ALT/SGPT) 62, Alkaline Phosphatase 73, C-Reactive Protein, Quantitative 1.7H, Pro-B-Type Natriuretic Peptide 1210H, Total Protein 5.4L, Albumin 1.9L, Globulin 3.5, Albumin/Globulin Ratio 0.5L 11/08/20 11:51: POC Whole Blood Glucose 213H 11/08/20 16:56: POC Whole Blood Glucose 316H 11/08/20 20:29: POC Whole Blood Glucose 341H 11/09/20 05:37: POC Whole Blood Glucose 335H Height (Feet): 5 Height (Inches): 5.00 Weight (Pounds): 150 Objective Current Medications Medications (Trade) Dose Ordered Sig/Manasa Route PRN Reason Start Time Stop Time Status Last Admin Dose Admin Acetaminophen (Tylenol) 500 mg Q4H PRN ORAL For Pain 11/01/20 01:00 12/01/20 00:59 11/01/20 18:50 Acetaminophen (Tylenol) 650 mg Q4H PRN RECTAL Temp >100.5 11/01/20 21:30 12/01/20 21:29 Allopurinol (Zyloprim) 200 mg DAILY ORAL 11/01/20 16:00 12/01/20 15:59 11/08/20 09:36 Amiodarone HCl (Cordarone) 400 mg DAILY ORAL 11/05/20 18:30 02/01/21 08:59 11/07/20 08:53 Chlorhexidine Gluconate (María Elena-Hex 2%) 1 applic DAILY@2000 TOPIC 11/04/20 20:00 02/02/21 19:59 11/08/20 20:34 Clonidine HCl (Catapres Tab) 0.1 mg Q4H PRN ORAL bp over 160 syst 10/31/20 17:45 01/29/21 17:44 11/01/20 09:20 Dexamethasone Sodium Phosphate (Decadron 10mg/ ml Inj) 6 mg DAILY IV 11/03/20 09:00 11/13/20 08:59 11/08/20 09:33 Dextrose (Dextrose 50%) 25 ml Q30M PRN IV Hypoglycemia 11/01/20 07:15 01/30/21 07:14 Dextrose (Dextrose 50%) 50 ml Q30M PRN IV Hypoglycemia 11/01/20 07:15 01/30/21 07:14 Diltiazem HCl (Cardizem Tab) 90 mg BID ORAL 11/07/20 10:15 12/02/20 17:59 11/08/20 17:14 Docusate Sodium (Colace) 100 mg TWICE A DAY ORAL 10/31/20 18:00 11/30/20 17:59 11/08/20 17:14 Haloperidol Lactate (Haldol) 5 mg Q6H PRN IM Agitation 11/06/20 21:30 12/21/20 21:29 11/09/20 02:40 Heparin Sodium (Porcine) (Heparin Sod 1000 units/ml 10ml) 1,000 unit ONCE PRN INJ PROCEDURE 11/08/20 13:26 11/09/20 23:59 Insulin Aspart (NovoLOG) BEFORE MEALS AND HS SUBQ 11/01/20 11:30 01/30/21 11:29 11/09/20 06:12 Insulin Aspart (NovoLOG) 8 units NOVOTIAC SUBQ 11/06/20 11:50 01/30/21 11:49 11/09/20 06:12 Insulin Detemir (Levemir) 24 units DAILY SUBQ 11/01/20 09:00 01/30/21 08:59 11/08/20 12:01 Methimazole (Tapazole) 10 mg DAILY ORAL 11/03/20 09:00 12/03/20 08:59 11/08/20 09:35 Metoprolol Tartrate (Lopressor) 50 mg Q12HR ORAL 11/01/20 21:00 01/30/21 20:59 11/08/20 20:42 Ondansetron HCl (Zofran) 4 mg Q6H PRN IVP Nausea & Vomiting 11/07/20 16:30 12/07/20 16:29 11/07/20 17:28 Pantoprazole (Protonix) 40 mg BID ORAL 10/31/20 18:00 11/30/20 17:44 11/08/20 17:14 Potassium Chloride (K-Dur) 20 meq TWICE A DAY ORAL 11/08/20 18:00 11/09/20 17:59 11/08/20 17:14 Sitagliptin Phosphate (Januvia) 25 mg ACBREAKFAST ORAL 11/06/20 06:30 12/06/20 06:29 11/09/20 06:10 Tamsulosin HCl (Flomax) 0.4 mg BID ORAL 11/03/20 12:00 12/03/20 11:59 11/08/20 17:14 Assessment/Plan Problem List: (1) Abnormal thyroid blood test ICD Codes: R79.89 - Other specified abnormal findings of blood chemistry SNOMED: 402583755, 836256223815576 (2) Diabetes mellitus out of control ICD Codes: E11.65 - Type 2 diabetes mellitus with hyperglycemia SNOMED: 69481119, 834471523 (3) Renal failure (ARF), acute on chronic ICD Codes: N17.9 - Acute kidney failure, unspecified; N18.9 - Chronic kidney disease, unspecified SNOMED: 315835686 (4) COVID-19 virus infection ICD Codes: U07.1 - COVID-19 SNOMED: 583916434 (5) DKA (diabetic ketoacidoses) ICD Codes: E11.10 - Type 2 diabetes mellitus with ketoacidosis without coma SNOMED: 903679331, 21464873 (6) NSTEMI (non-ST elevated myocardial infarction) ICD Codes: I21.4 - Non-ST elevation (NSTEMI) myocardial infarction SNOMED: 69885133 Status: progressing, unchanged Assessment/Plan: increase Levemir to 18 units bid increase Novolog to 12 units ac tid + SSI continue Januvia 25 mg daily continue Tapazole 10 mg daily TSI pending Markus Tamez MD Nov 09, 2020 06:19
--- NOTE | 2020-11-09 06:35 | NUR ---
NURSE HAND-OFF REPORT: Important Events on Shift:Patient pulled out right femoral central line (henry cath). Pressure was applied for 10mins. Bleeding was stopped. Dressing was applied to site. Patient was cleaned bedding was changed. Will monitor right femoral site frequently. No bleeding noted. Patient is still confused as base line. Notify primary MD Dr. Soto, Dr. Buckley, Dr. Singh. Patient was plased back on Bilateral wrist restraints. Patient Status: No SOB Diet: Renal puree Pending Orders: Pending Results/Labs: Pending MD notification: Latest Vital Signs: Temperature 97.9 , Pulse 61 , B/P 117 /60 , Respiratory Rate 17 , O2 SAT 94 , Nasal Cannula, O2 Flow Rate 3.0 . Vital Sign Comment: EKG Rhythm: Sinus Rhythm Rhythm change?: N Notified?: Amari MCQUEEN MD Response: Message left await call Latest Bhat Fall Score: 60 Fall Risk: High Risk Safety Measures: Call light Within Reach, Bed Alarm Zone 1, Side Rails Side Rails x3, Bed position Low and Locked. Fall Precautions: Yellow Socks Report to be given to Josh. Addendum: 11/09/20 at 0712 by Deana Fay RN report given to Josh
--- NOTE | 2020-11-09 06:43 | NUR ---
CASE MANAGEMENT:REVIEW 11/09/20 SI: NSTEMI. COVID PNA. DKA. AFLUTTER W/RVR ACUTE ON CHRONIC RENAL FAILURE 97.9 61 17 117/60 94% ON 3L/NC LABS ARE CURRENTLY PENDING IS: CARDIZEM PO BID AMIODARONE PO QD NOVOLOG SQ TID AC JANUVIA PO QAM SS INSULIN AC+HS LEVEMIR SQ QD FLOMAX PO BID TAPAZOLE PO QD IV DECADRON QD LOPRESSOR PO Q12 PROTONIX PO BID : TELEMETRY STATUS DCP: FROM HOME PLAN: WEAN OXYGEN TOLERATED SCHEDULED FOR DIALYSIS TODAY ~ TEMPORARY DIALYSIS CATHETER WAS PLACED ON 11/03/20 WILL ORDER HEPATITIS PANEL IN CASE OUTPATIENT DIALYSIS IS NEEDED WOULD LIKE TO SPEAK WITH DERICK ELLIS SENIOR STAFF CONSULTANT ABOUT THIS CASE
--- NOTE | 2020-11-09 07:02 | NUR ---
NURSE NOTES: received pt alert and awake. no acute distress noted at this time. call light within reach. restraint inplace.
[2020-11-09 07:43] LABS: HEMATOCRIT 26.2 % (42.0-52.0); HEMOGLOBIN 8.8 G/DL (14.2-18.0); MEAN CORPUSCULAR VOLUME 90 FL (80-99); PLATELET COUNT 219 K/UL (150-450); RED CELL DISTRIBUTION WIDTH 12.4 % (11.6-14.8); WHITE BLOOD COUNT 12.7 K/UL (4.8-10.8)
[2020-11-09 08:00] VITALS: BP 134/58
[2020-11-09 08:00] LABS: ALBUMIN 1.6 G/DL (3.4-5.0); ALBUMIN/GLOBULIN RATIO 0.6 (1.0-2.7); BILIRUBIN,TOTAL 0.4 MG/DL (0.2-1.0); CREATININE 2.8 MG/DL (0.55-1.30); PHOSPHORUS 4.7 MG/DL (2.5-4.9); POTASSIUM 4.3 MMOL/L (3.5-5.1)
[2020-11-09] MEDS: Levemir Flexpen SUBQ SCH ×2 (08:57→18:00)
[2020-11-09] MEDS: dexAMETHasone 10mg/ml Inj IV SCH (08:57)
[2020-11-09] MEDS: Docusate 100mg cap ORAL SCH ×2 (08:57→17:12)
[2020-11-09] MEDS: Allopurinol 100mg Tab ORAL SCH (08:58)
[2020-11-09] MEDS: methIMAzole 10mg tab ORAL SCH (08:58)
[2020-11-09] MEDS: dilTIAZem HCl 90mg tab ORAL SCH ×2 (08:58→17:12)
[2020-11-09] MEDS: Metoprolol Tartrate 50mg tab ORAL SCH ×2 (08:58→20:31)
[2020-11-09] MEDS: Tamsulosin 0.4mg cap ORAL SCH ×2 (08:58→17:12)
[2020-11-09] MEDS: Amiodarone 200mg tab ORAL SCH (08:59)
--- NOTE | 2020-11-09 09:30 | Cardiac Electrophysiology PN ---
Assessment/Plan Assessment/Plan 1. NSTEMI with troponin of 0.25 and 0.35 in this patient with DKA as well as atrial flutter with rapid ventricular response. On metoprolol 50 mg b.i.d. EF 65% 2. Atrial flutter with RVR On metoprolol 50 mg bid, Cardizem 90 bid and decrease Amiodarone to 200 po daily Eliquis held for hematuria 3. Diabetic ketoacidosis with glucose of more than 1000. 4. Accelerated hypertension. On Lopressor 50 bid and Cardizem 90 bid 5. COVID positive pneumonia. 6. Acute Renal failure in the setting of total CK of 1900, maybe rhabdomyolysis- induced renal failure. On HD via RFV Yazan by Dr. Buckley. RFV Yazan pulled out by patient. New access is pending DW RN Subjective Subjective Pulled out his RFV Yazan catheter after HD last night. In restraints now in covid isolation. On 2 liter NC. In SR on Amio, Cardizem and metoprolol. Off Eliquis due to hematuria Objective Last 24 Hour Vital Signs Date Time Temp Pulse Resp B/P (MAP) Pulse Ox O2 Delivery O2 Flow Rate FiO2 11/09/20 08:58 61 117/60 11/09/20 08:58 61 117/60 11/09/20 04:00 97.9 61 17 117/60 (79) 94 11/09/20 03:08 73 11/09/20 00:04 58 11/09/20 00:00 97.9 61 17 117/60 (79) 94 11/09/20 00:00 80 11/09/20 00:00 58 11/08/20 21:00 Nasal Cannula 3.0 11/08/20 20:42 76 128/52 11/08/20 20:00 96.1 76 18 128/52 (77) 95 11/08/20 17:14 65 144/75 11/08/20 16:00 80 11/08/20 16:00 97.6 77 20 143/86 (105) 98 11/08/20 12:00 65 11/08/20 12:00 97.7 70 20 144/75 (98) 95 Intake and Output 11/08/20 11/09/20 19:00 07:00 Intake Total 120 ml Output Total 2000 ml Balance -2000 ml 120 ml Intake Oral 120 ml Hemodialysis UF 2000 ml # Voids 3 # Bowel Movements 3 3 Laboratory Tests Test 11/08/20 11:51 11/08/20 16:56 11/08/20 20:29 11/09/20 05:37 POC Whole Blood Glucose 213 MG/DL (74-106) H 316 MG/DL (74-106) H 341 MG/DL (74-106) H 335 MG/DL (74-106) H Test 11/09/20 05:52 White Blood Count 12.7 K/UL (4.8-10.8) H Red Blood Count 2.90 M/UL (4.70-6.10) L Hemoglobin 8.8 G/DL (14.2-18.0) L Hematocrit 26.2 % (42.0-52.0) L Mean Corpuscular Volume 90 FL (80-99) Mean Corpuscular Hemoglobin 30.4 PG (27.0-31.0) Mean Corpuscular Hemoglobin Concent 33.7 G/DL (32.0-36.0) Red Cell Distribution Width 12.4 % (11.6-14.8) Platelet Count 219 K/UL (150-450) Mean Platelet Volume 6.3 FL (6.5-10.1) L Neutrophils (%) (Auto) % (45.0-75.0) Lymphocytes (%) (Auto) % (20.0-45.0) Monocytes (%) (Auto) % (1.0-10.0) Eosinophils (%) (Auto) % (0.0-3.0) Basophils (%) (Auto) % (0.0-2.0) Neutrophils % (Manual) Pending Lymphocytes % (Manual) Pending Platelet Estimate Pending Platelet Morphology Pending Sodium Level 136 MMOL/L (136-145) Potassium Level 4.3 MMOL/L (3.5-5.1) Chloride Level 100 MMOL/L (98-107) Carbon Dioxide Level 30 MMOL/L (21-32) Anion Gap 6 mmol/L (5-15) Blood Urea Nitrogen 42 mg/dL (7-18) H Creatinine 2.8 MG/DL (0.55-1.30) H Estimat Glomerular Filtration Rate 22.1 mL/min (>60) Glucose Level 341 MG/DL (74-106) #H Uric Acid 2.8 MG/DL (2.6-7.2) Calcium Level 8.0 MG/DL (8.5-10.1) L Phosphorus Level 4.7 MG/DL (2.5-4.9) Magnesium Level 1.8 MG/DL (1.8-2.4) Total Bilirubin 0.4 MG/DL (0.2-1.0) Aspartate Amino Transf (AST/SGOT) 41 U/L (15-37) H Alanine Aminotransferase (ALT/SGPT) 52 U/L (12-78) Alkaline Phosphatase 66 U/L (46-116) C-Reactive Protein, Quantitative 2.1 mg/dL (0.00-0.90) H Pro-B-Type Natriuretic Peptide 843 pg/mL (0-125) H Total Protein 4.5 G/DL (6.4-8.2) L Albumin 1.6 G/DL (3.4-5.0) L Globulin 2.9 g/dL Albumin/Globulin Ratio 0.6 (1.0-2.7) L Thyroid Stimulating Hormone (TSH) 0.084 uiU/mL (0.358-3.740) Free Thyroxine 1.49 NG/DL (0.76-1.46) H Free Triiodothyronine 0.7 pg/mL (2.3-4.2) L Hepatitis B Surface Antigen Pending Hepatitis B Surface Antibody, Quant Pending Hepatitis C Antibody Pending Objective HEAD AND NECK: Shows no JVD. LUNGS: Clear. CARDIOVASCULAR: Shows regular S1 and S2 with no gallop. ABDOMEN: Soft. EXTREMITIES: Right Femoral Yazan is pulled out. No pitting edema. Sivakumar Escalante MD Nov 09, 2020 09:30
[2020-11-09 12:00] VITALS: BP 147/51
--- NOTE | 2020-11-09 12:34 | Nephrology Progress Note ---
Assessment/Plan Problem List: (1) Renal failure (ARF), acute on chronic (2) DKA (diabetic ketoacidoses) (3) COVID-19 virus infection (4) Rhabdomyolysis (5) Abnormal thyroid blood test (6) NSTEMI (non-ST elevated myocardial infarction) Assessment 75-year-old [place] male Covid positive Acute renal failure, most likely superimposed on chronic kidney disease Diabetes mellitus, presents with severe hyperglycemia and DKA History of hypertension Plan November 09: Labs reviewed. Patient was dialyzed yesterday. Patient pulled out the dialysis catheter last night. Renal parameters stable. Continue to monitor and if dialysis needed to place a new temporary catheter. Per orders. November 08: Labs reviewed. Serum creatinine is plateauing. Due for dialysis today. We will continue to monitor renal parameters and dialysis as needed. November 07: Labs reviewed. Serum creatinine rising. IV fluid discontinued. Dialysis for tomorrow. Continue per consultants. November 06: Labs reviewed. Blood pressure stable. Medication list reviewed. Dialysis as needed. November 05: Due for dialysis today. Labs are reviewed. Blood pressure is stable. Continue to monitor renal parameters. November 04: Patient was dialyzed yesterday. 1 L ultrafiltrated. Labs reviewed. Renal parameters stable. Will attempt dialysis again tomorrow. Medication list reviewed. November 03: Labs reviewed. Serum creatinine rising. Patient has hematuria. Patient on Eliquis. Will arrange for placement of dialysis catheter and attempt to dialyze. Will start Flomax since the patient could not have a Anand catheter. Continue to monitor renal parameters. Continue per consultants. Discussed with RN. Consent for placement of nontunneled catheter ordered. Patient is also on Tapazole for high thyroid hormone. CPK is lowering. November 02: Labs reviewed. Serum creatinine up to 4. In S DU now. On Cardizem drip. Measured creatinine clearance . Patient may lead towards dialysis. Continue to monitor renal parameters. November 01: Renal parameters improving. Blood sugar is improving. Continue to monitor electrolytes renal parameters and urine output. Aim to control blood sugar and blood pressure. Avoid nephrotoxic's. Monitor CPK as it is elevated. Previously: Anand catheter Blood sugar control Slow hydration Monitor renal parameters Kidney ultrasound no hydronephrosis 2D echocardiogram ejection fraction 60 to 65%. Per orders Subjective ROS Limited/Unobtainable: Yes Objective Objective Last 24 Hour Vital Signs Date Time Temp Pulse Resp B/P (MAP) Pulse Ox O2 Delivery O2 Flow Rate FiO2 11/09/20 09:00 Nasal Cannula 3.0 11/09/20 08:58 61 117/60 11/09/20 08:58 61 117/60 11/09/20 08:00 71 11/09/20 08:00 97.7 71 20 134/58 (83) 95 11/09/20 04:00 97.9 61 17 117/60 (79) 94 11/09/20 03:08 73 11/09/20 00:04 58 11/09/20 00:00 97.9 61 17 117/60 (79) 94 11/09/20 00:00 80 11/09/20 00:00 58 11/08/20 21:00 Nasal Cannula 3.0 11/08/20 20:42 76 128/52 11/08/20 20:00 96.1 76 18 128/52 (77) 95 11/08/20 17:14 65 144/75 11/08/20 16:00 80 11/08/20 16:00 97.6 77 20 143/86 (105) 98 Intake and Output 11/08/20 11/09/20 19:00 07:00 Intake Total 120 ml Output Total 2000 ml Balance -2000 ml 120 ml Intake Oral 120 ml Hemodialysis UF 2000 ml # Voids 3 # Bowel Movements 3 3 Laboratory Tests 11/08/20 16:56: POC Whole Blood Glucose 316H 11/08/20 20:29: POC Whole Blood Glucose 341H 11/09/20 05:37: POC Whole Blood Glucose 335H 11/09/20 05:52: White Blood Count 12.7H, Red Blood Count 2.90L, Hemoglobin 8.8L, Hematocrit 26.2L, Mean Corpuscular Volume 90, Mean Corpuscular Hemoglobin 30.4, Mean Corpuscular Hemoglobin Concent 33.7, Red Cell Distribution Width 12.4, Platelet Count 219, Mean Platelet Volume 6.3L, Neutrophils (%) (Auto) , Lymphocytes (%) (Auto) , Monocytes (%) (Auto) , Eosinophils (%) (Auto) , Basophils (%) (Auto) , Differential Total Cells Counted 100, Neutrophils % (Manual) 92H, Lymphocytes % (Manual) 5L, Monocytes % (Manual) 3, Eosinophils % (Manual) 0, Basophils % (Manual) 0, Band Neutrophils 0, Platelet Estimate Adequate, Platelet Morphology Normal, Hypochromasia 1+, Sodium Level 136, Potassium Level 4.3, Chloride Level 100, Carbon Dioxide Level 30, Anion Gap 6, Blood Urea Nitrogen 42H, Creatinine 2.8H, Estimat Glomerular Filtration Rate 22.1, Glucose Level 341#H, Uric Acid 2.8, Calcium Level 8.0L, Phosphorus Level 4.7, Magnesium Level 1.8, Total Bilirubin 0.4, Aspartate Amino Transf (AST/SGOT) 41H, Alanine Aminotransferase (ALT/SGPT) 52, Alkaline Phosphatase 66, C-Reactive Protein, Quantitative 2.1H, Pro-B-Type Natriuretic Peptide 843H, Total Protein 4.5L, Albumin 1.6L, Globulin 2.9, Albumin/Globulin Ratio 0.6L, Thyroid Stimulating Hormone (TSH) 0.084L, Free Thyroxine 1.49H, Free Triiodothyronine 0.7L, Hepatitis B Surface Antigen [Pending], Hepatitis B Surface Antibody, Quant [Pending], Hepatitis C Antibody [Pending] Height (Feet): 5 Height (Inches): 5.00 Weight (Pounds): 150 General Appearance: no apparent distress, lethargic, confused Cardiovascular: normal rate Respiratory/Chest: decreased breath sounds Abdomen: distended Garth Buckley MD Nov 09, 2020 12:34
--- NOTE | 2020-11-09 14:53 | Infectious Diseases Prog Note ---
Assessment/Plan Assessment/Plan A; COVID19 pneumonia Hypoxemia Acute renal failure improving Rhabdomyolysis Diarrhea, C. difficile negative DKA Hyperthyroidism Anemia Leukocytosis improving P; Continue Dexamethasone Subjective ROS Limited/Unobtainable: Yes Neurologic: Reports: other - more alert, on restraint Allergies: Coded Allergies: No Known Allergies (Unverified , 10/31/20) Objective Last 24 Hour Vital Signs Date Time Temp Pulse Resp B/P (MAP) Pulse Ox O2 Delivery O2 Flow Rate FiO2 11/09/20 12:00 59 11/09/20 12:00 97.7 77 20 147/51 (83) 96 11/09/20 09:00 Nasal Cannula 3.0 11/09/20 08:58 61 117/60 11/09/20 08:58 61 117/60 11/09/20 08:00 71 11/09/20 08:00 97.7 71 20 134/58 (83) 95 11/09/20 04:00 97.9 61 17 117/60 (79) 94 11/09/20 03:08 73 11/09/20 00:04 58 11/09/20 00:00 97.9 61 17 117/60 (79) 94 11/09/20 00:00 80 11/09/20 00:00 58 11/08/20 21:00 Nasal Cannula 3.0 11/08/20 20:42 76 128/52 11/08/20 20:00 96.1 76 18 128/52 (77) 95 11/08/20 17:14 65 144/75 11/08/20 16:00 80 11/08/20 16:00 97.6 77 20 143/86 (105) 98 Height (Feet): 5 Height (Inches): 5.00 Weight (Pounds): 150 General Appearance: no acute distress HEENT: mucous membranes moist Respiratory/Chest: other - oxygen by nasal cannula Cardiovascular: normal rate Abdomen: soft, non tender Extremities: no edema Neurologic/Psychiatric: alert Laboratory Tests Test 11/08/20 16:56 11/08/20 20:29 11/09/20 05:37 11/09/20 05:52 POC Whole Blood Glucose 316 MG/DL (74-106) H 341 MG/DL (74-106) H 335 MG/DL (74-106) H White Blood Count 12.7 K/UL (4.8-10.8) H Red Blood Count 2.90 M/UL (4.70-6.10) L Hemoglobin 8.8 G/DL (14.2-18.0) L Hematocrit 26.2 % (42.0-52.0) L Mean Corpuscular Volume 90 FL (80-99) Mean Corpuscular Hemoglobin 30.4 PG (27.0-31.0) Mean Corpuscular Hemoglobin Concent 33.7 G/DL (32.0-36.0) Red Cell Distribution Width 12.4 % (11.6-14.8) Platelet Count 219 K/UL (150-450) Mean Platelet Volume 6.3 FL (6.5-10.1) L Neutrophils (%) (Auto) % (45.0-75.0) Lymphocytes (%) (Auto) % (20.0-45.0) Monocytes (%) (Auto) % (1.0-10.0) Eosinophils (%) (Auto) % (0.0-3.0) Basophils (%) (Auto) % (0.0-2.0) Differential Total Cells Counted 100 Neutrophils % (Manual) 92 % (45-75) H Lymphocytes % (Manual) 5 % (20-45) L Monocytes % (Manual) 3 % (1-10) Eosinophils % (Manual) 0 % (0-3) Basophils % (Manual) 0 % (0-2) Band Neutrophils 0 % (0-8) Platelet Estimate Adequate Platelet Morphology Normal Hypochromasia 1+ Sodium Level 136 MMOL/L (136-145) Potassium Level 4.3 MMOL/L (3.5-5.1) Chloride Level 100 MMOL/L (98-107) Carbon Dioxide Level 30 MMOL/L (21-32) Anion Gap 6 mmol/L (5-15) Blood Urea Nitrogen 42 mg/dL (7-18) H Creatinine 2.8 MG/DL (0.55-1.30) H Estimat Glomerular Filtration Rate 22.1 mL/min (>60) Glucose Level 341 MG/DL (74-106) #H Uric Acid 2.8 MG/DL (2.6-7.2) Calcium Level 8.0 MG/DL (8.5-10.1) L Phosphorus Level 4.7 MG/DL (2.5-4.9) Magnesium Level 1.8 MG/DL (1.8-2.4) Total Bilirubin 0.4 MG/DL (0.2-1.0) Aspartate Amino Transf (AST/SGOT) 41 U/L (15-37) H Alanine Aminotransferase (ALT/SGPT) 52 U/L (12-78) Alkaline Phosphatase 66 U/L (46-116) C-Reactive Protein, Quantitative 2.1 mg/dL (0.00-0.90) H Pro-B-Type Natriuretic Peptide 843 pg/mL (0-125) H Total Protein 4.5 G/DL (6.4-8.2) L Albumin 1.6 G/DL (3.4-5.0) L Globulin 2.9 g/dL Albumin/Globulin Ratio 0.6 (1.0-2.7) L Thyroid Stimulating Hormone (TSH) 0.084 uiU/mL (0.358-3.740) Free Thyroxine 1.49 NG/DL (0.76-1.46) H Free Triiodothyronine 0.7 pg/mL (2.3-4.2) L Hepatitis B Surface Antigen Pending Hepatitis B Surface Antibody, Quant Pending Hepatitis C Antibody Pending Current Medications Medications (Trade) Dose Ordered Sig/Manasa Route PRN Reason Start Time Stop Time Status Last Admin Dose Admin Acetaminophen (Tylenol) 500 mg Q4H PRN ORAL For Pain 11/01/20 01:00 12/01/20 00:59 11/01/20 18:50 Acetaminophen (Tylenol) 650 mg Q4H PRN RECTAL Temp >100.5 11/01/20 21:30 12/01/20 21:29 Allopurinol (Zyloprim) 200 mg DAILY ORAL 11/01/20 16:00 12/01/20 15:59 11/09/20 08:58 Amiodarone HCl (Cordarone) 200 mg DAILY ORAL 11/10/20 09:00 02/08/21 08:59 Chlorhexidine Gluconate (María Elena-Hex 2%) 1 applic DAILY@1999 TOPIC 11/04/20 20:00 02/02/21 19:59 11/08/20 20:34 Clonidine HCl (Catapres Tab) 0.1 mg Q4H PRN ORAL bp over 160 syst 10/31/20 17:45 01/29/21 17:44 11/01/20 09:20 Dexamethasone Sodium Phosphate (Decadron 10mg/ ml Inj) 6 mg DAILY IV 11/03/20 09:00 11/13/20 08:59 11/09/20 08:57 Dextrose (Dextrose 50%) 25 ml Q30M PRN IV Hypoglycemia 11/01/20 07:15 01/30/21 07:14 Dextrose (Dextrose 50%) 50 ml Q30M PRN IV Hypoglycemia 11/01/20 07:15 01/30/21 07:14 Diltiazem HCl (Cardizem Tab) 90 mg BID ORAL 11/07/20 10:15 12/02/20 17:59 11/09/20 08:58 Docusate Sodium (Colace) 100 mg TWICE A DAY ORAL 10/31/20 18:00 11/30/20 17:59 11/09/20 08:57 Haloperidol Lactate (Haldol) 5 mg Q6H PRN IM Agitation 11/06/20 21:30 12/21/20 21:29 11/09/20 02:40 Heparin Sodium (Porcine) (Heparin Sod 1000 units/ml 10ml) 1,000 unit ONCE PRN INJ PROCEDURE 11/08/20 13:26 11/09/20 23:59 Insulin Aspart (NovoLOG) BEFORE MEALS AND HS SUBQ 11/01/20 11:30 01/30/21 11:29 11/09/20 12:27 Insulin Aspart (NovoLOG) 12 units NOVOTIAC SUBQ 11/09/20 11:50 01/30/21 11:49 11/09/20 11:50 Insulin Detemir (Levemir) 18 units BID SUBQ 11/09/20 09:00 01/30/21 08:59 11/09/20 08:57 Methimazole (Tapazole) 10 mg DAILY ORAL 11/03/20 09:00 12/03/20 08:59 11/09/20 08:58 Metoprolol Tartrate (Lopressor) 50 mg Q12HR ORAL 11/01/20 21:00 01/30/21 20:59 11/09/20 08:58 Ondansetron HCl (Zofran) 4 mg Q6H PRN IVP Nausea & Vomiting 11/07/20 16:30 12/07/20 16:29 11/07/20 17:28 Pantoprazole (Protonix) 40 mg BID ORAL 10/31/20 18:00 11/30/20 17:44 11/09/20 08:59 Potassium Chloride (K-Dur) 20 meq TWICE A DAY ORAL 11/08/20 18:00 11/09/20 17:59 11/09/20 08:58 Sitagliptin Phosphate (Januvia) 25 mg ACBREAKFAST ORAL 11/06/20 06:30 12/06/20 06:29 11/09/20 06:10 Tamsulosin HCl (Flomax) 0.4 mg BID ORAL 11/03/20 12:00 12/03/20 11:59 11/09/20 08:58 Reji Connelly MD Nov 09, 2020 14:53
--- NOTE | 2020-11-09 15:07 | Pulmonology Progress Note ---
Subjective ROS Limited/Unobtainable: Yes Interval Events: none major reported per nursing Constitutional: Denies: fever Gastrointestinal/Abdominal: Reports: diarrhea - C. diff negative Allergies: Coded Allergies: No Known Allergies (Unverified , 10/31/20) Objective Last 24 Hour Vital Signs Date Time Temp Pulse Resp B/P (MAP) Pulse Ox O2 Delivery O2 Flow Rate FiO2 11/09/20 12:00 59 11/09/20 12:00 97.7 77 20 147/51 (83) 96 11/09/20 09:00 Nasal Cannula 3.0 11/09/20 08:58 61 117/60 11/09/20 08:58 61 117/60 11/09/20 08:00 71 11/09/20 08:00 97.7 71 20 134/58 (83) 95 11/09/20 04:00 97.9 61 17 117/60 (79) 94 11/09/20 03:08 73 11/09/20 00:04 58 11/09/20 00:00 97.9 61 17 117/60 (79) 94 11/09/20 00:00 80 11/09/20 00:00 58 11/08/20 21:00 Nasal Cannula 3.0 11/08/20 20:42 76 128/52 11/08/20 20:00 96.1 76 18 128/52 (77) 95 11/08/20 17:14 65 144/75 11/08/20 16:00 80 11/08/20 16:00 97.6 77 20 143/86 (105) 98 Intake and Output 11/08/20 11/09/20 19:00 07:00 Intake Total 120 ml Output Total 2000 ml Balance -2000 ml 120 ml Intake Oral 120 ml Hemodialysis UF 2000 ml # Voids 3 # Bowel Movements 3 3 Objective now saturating at 95% on 2L NC General Appearance: WD/WN, no acute distress HEENT: atraumatic Respiratory: chest wall non-tender Cardiovascular: regular rhythm, tachycardia Abdomen: soft, non tender Laboratory Tests 11/08/20 16:56: POC Whole Blood Glucose 316H 11/08/20 20:29: POC Whole Blood Glucose 341H 11/09/20 05:37: POC Whole Blood Glucose 335H 11/09/20 05:52: White Blood Count 12.7H, Red Blood Count 2.90L, Hemoglobin 8.8L, Hematocrit 26.2L, Mean Corpuscular Volume 90, Mean Corpuscular Hemoglobin 30.4, Mean Corpuscular Hemoglobin Concent 33.7, Red Cell Distribution Width 12.4, Platelet Count 219, Mean Platelet Volume 6.3L, Neutrophils (%) (Auto) , Lymphocytes (%) (Auto) , Monocytes (%) (Auto) , Eosinophils (%) (Auto) , Basophils (%) (Auto) , Differential Total Cells Counted 100, Neutrophils % (Manual) 92H, Lymphocytes % (Manual) 5L, Monocytes % (Manual) 3, Eosinophils % (Manual) 0, Basophils % (Manual) 0, Band Neutrophils 0, Platelet Estimate Adequate, Platelet Morphology Normal, Hypochromasia 1+, Sodium Level 136, Potassium Level 4.3, Chloride Level 100, Carbon Dioxide Level 30, Anion Gap 6, Blood Urea Nitrogen 42H, Creatinine 2.8H, Estimat Glomerular Filtration Rate 22.1, Glucose Level 341#H, Uric Acid 2.8, Calcium Level 8.0L, Phosphorus Level 4.7, Magnesium Level 1.8, Total Bilirubin 0.4, Aspartate Amino Transf (AST/SGOT) 41H, Alanine Aminotransferase (ALT/SGPT) 52, Alkaline Phosphatase 66, C-Reactive Protein, Quantitative 2.1H, Pro-B-Type Natriuretic Peptide 843H, Total Protein 4.5L, Albumin 1.6L, Globulin 2.9, Albumin/Globulin Ratio 0.6L, Thyroid Stimulating Hormone (TSH) 0.084L, Free Thyroxine 1.49H, Free Triiodothyronine 0.7L, Hepatitis B Surface Antigen [Pending], Hepatitis B Surface Antibody, Quant [Pending], Hepatitis C Antibody [Pending] Current Medications Medications (Trade) Dose Ordered Sig/Manasa Route PRN Reason Start Time Stop Time Status Last Admin Dose Admin Acetaminophen (Tylenol) 500 mg Q4H PRN ORAL For Pain 11/01/20 01:00 12/01/20 00:59 11/01/20 18:50 Acetaminophen (Tylenol) 650 mg Q4H PRN RECTAL Temp >100.5 11/01/20 21:30 12/01/20 21:29 Allopurinol (Zyloprim) 200 mg DAILY ORAL 11/01/20 16:00 12/01/20 15:59 11/09/20 08:58 Amiodarone HCl (Cordarone) 200 mg DAILY ORAL 11/10/20 09:00 02/08/21 08:59 Chlorhexidine Gluconate (María Elena-Hex 2%) 1 applic DAILY@2000 TOPIC 11/04/20 20:00 02/02/21 19:59 11/08/20 20:34 Clonidine HCl (Catapres Tab) 0.1 mg Q4H PRN ORAL bp over 160 syst 10/31/20 17:45 01/29/21 17:44 11/01/20 09:20 Dexamethasone Sodium Phosphate (Decadron 10mg/ ml Inj) 6 mg DAILY IV 11/03/20 09:00 11/13/20 08:59 11/09/20 08:57 Dextrose (Dextrose 50%) 25 ml Q30M PRN IV Hypoglycemia 11/01/20 07:15 01/30/21 07:14 Dextrose (Dextrose 50%) 50 ml Q30M PRN IV Hypoglycemia 11/01/20 07:15 01/30/21 07:14 Diltiazem HCl (Cardizem Tab) 90 mg BID ORAL 11/07/20 10:15 12/02/20 17:59 11/09/20 08:58 Docusate Sodium (Colace) 100 mg TWICE A DAY ORAL 10/31/20 18:00 11/30/20 17:59 11/09/20 08:57 Haloperidol Lactate (Haldol) 5 mg Q6H PRN IM Agitation 11/06/20 21:30 12/21/20 21:29 11/09/20 02:40 Heparin Sodium (Porcine) (Heparin Sod 1000 units/ml 10ml) 1,000 unit ONCE PRN INJ PROCEDURE 11/08/20 13:26 11/09/20 23:59 Insulin Aspart (NovoLOG) BEFORE MEALS AND HS SUBQ 11/01/20 11:30 01/30/21 11:29 11/09/20 12:27 Insulin Aspart (NovoLOG) 12 units NOVOTIAC SUBQ 11/09/20 11:50 01/30/21 11:49 11/09/20 11:50 Insulin Detemir (Levemir) 18 units BID SUBQ 11/09/20 09:00 01/30/21 08:59 11/09/20 08:57 Methimazole (Tapazole) 10 mg DAILY ORAL 11/03/20 09:00 12/03/20 08:59 11/09/20 08:58 Metoprolol Tartrate (Lopressor) 50 mg Q12HR ORAL 11/01/20 21:00 01/30/21 20:59 11/09/20 08:58 Ondansetron HCl (Zofran) 4 mg Q6H PRN IVP Nausea & Vomiting 11/07/20 16:30 12/07/20 16:29 11/07/20 17:28 Pantoprazole (Protonix) 40 mg BID ORAL 10/31/20 18:00 11/30/20 17:44 11/09/20 08:59 Potassium Chloride (K-Dur) 20 meq TWICE A DAY ORAL 11/08/20 18:00 11/09/20 17:59 11/09/20 08:58 Sitagliptin Phosphate (Januvia) 25 mg ACBREAKFAST ORAL 11/06/20 06:30 12/06/20 06:29 11/09/20 06:10 Tamsulosin HCl (Flomax) 0.4 mg BID ORAL 11/03/20 12:00 12/03/20 11:59 11/09/20 08:58 Assessment/Plan Assessment/Plan 1. Non-ST elevation myocardial infarction. - cardiology following 2. Diabetic ketoacidosis - seen by endocrinology - continue fluids - on insulin 3. Atrial flutter with rapid ventricular response. - Continue metoprolol 50 mg b.i.d. 4. COVID positive pneumonia. - on Decadron (11/03-) - Supplemental O2 - saturating at 95% on 2L NC; wean down as tolerated - CXR 11/04 developing b/l infilitrates 5. Renal failure with creatinine of 3.5. - nephrology following 6. Accelerated hypertension. 7. Hyperthyroidism - Dr. Tamez following 8. Diarrhea - C. diff negative DVT ppx - Lovenox The care for this patient was discussed with my supervising physician Time spent for this case was approximately 31 minutes Singh Buchanan Nov 09, 2020 15:07
[2020-11-09 16:00] VITALS: BP 108/51
--- NOTE | 2020-11-09 16:40 | Surgery Progress Note ---
Surgery Progress Note Subjective Procedure Performed Right femoral temporary hemodialysis catheter insertion Additional Comments Patient pulled out right femoral central line (henry cath). Pressure was applied for 10mins. Bleeding was stopped. Dressing was applied to site will plan for cath as per nephro Objective Last 24 Hour Vital Signs Date Time Temp Pulse Resp B/P (MAP) Pulse Ox O2 Delivery O2 Flow Rate FiO2 11/09/20 12:00 59 11/09/20 12:00 97.7 77 20 147/51 (83) 96 11/09/20 09:00 Nasal Cannula 3.0 11/09/20 08:58 61 117/60 11/09/20 08:58 61 117/60 11/09/20 08:00 71 11/09/20 08:00 97.7 71 20 134/58 (83) 95 11/09/20 07:00 95 Nasal Cannula 3.0 32 11/09/20 04:00 97.9 61 17 117/60 (79) 94 11/09/20 03:08 73 11/09/20 00:04 58 11/09/20 00:00 97.9 61 17 117/60 (79) 94 11/09/20 00:00 80 11/09/20 00:00 58 11/08/20 21:00 Nasal Cannula 3.0 11/08/20 20:42 76 128/52 11/08/20 20:00 96.1 76 18 128/52 (77) 95 11/08/20 17:14 65 144/75 I&O Intake and Output 11/08/20 11/09/20 19:00 07:00 Intake Total 120 ml Output Total 2000 ml Balance -2000 ml 120 ml Intake Oral 120 ml Hemodialysis UF 2000 ml # Voids 3 # Bowel Movements 3 3 Dressing: dry Cardiovascular: RSR Respiratory: clear, decreased breath sounds Abdomen: soft, non-tender, present bowel sounds Extremities: no edema, no tenderness, no cyanosis, pulses, other Laboratory Tests Test 11/08/20 16:56 11/08/20 20:29 11/09/20 05:37 11/09/20 05:52 POC Whole Blood Glucose 316 MG/DL (74-106) H 341 MG/DL (74-106) H 335 MG/DL (74-106) H White Blood Count 12.7 K/UL (4.8-10.8) H Red Blood Count 2.90 M/UL (4.70-6.10) L Hemoglobin 8.8 G/DL (14.2-18.0) L Hematocrit 26.2 % (42.0-52.0) L Mean Corpuscular Volume 90 FL (80-99) Mean Corpuscular Hemoglobin 30.4 PG (27.0-31.0) Mean Corpuscular Hemoglobin Concent 33.7 G/DL (32.0-36.0) Red Cell Distribution Width 12.4 % (11.6-14.8) Platelet Count 219 K/UL (150-450) Mean Platelet Volume 6.3 FL (6.5-10.1) L Neutrophils (%) (Auto) % (45.0-75.0) Lymphocytes (%) (Auto) % (20.0-45.0) Monocytes (%) (Auto) % (1.0-10.0) Eosinophils (%) (Auto) % (0.0-3.0) Basophils (%) (Auto) % (0.0-2.0) Differential Total Cells Counted 100 Neutrophils % (Manual) 92 % (45-75) H Lymphocytes % (Manual) 5 % (20-45) L Monocytes % (Manual) 3 % (1-10) Eosinophils % (Manual) 0 % (0-3) Basophils % (Manual) 0 % (0-2) Band Neutrophils 0 % (0-8) Platelet Estimate Adequate Platelet Morphology Normal Hypochromasia 1+ Sodium Level 136 MMOL/L (136-145) Potassium Level 4.3 MMOL/L (3.5-5.1) Chloride Level 100 MMOL/L (98-107) Carbon Dioxide Level 30 MMOL/L (21-32) Anion Gap 6 mmol/L (5-15) Blood Urea Nitrogen 42 mg/dL (7-18) H Creatinine 2.8 MG/DL (0.55-1.30) H Estimat Glomerular Filtration Rate 22.1 mL/min (>60) Glucose Level 341 MG/DL (74-106) #H Uric Acid 2.8 MG/DL (2.6-7.2) Calcium Level 8.0 MG/DL (8.5-10.1) L Phosphorus Level 4.7 MG/DL (2.5-4.9) Magnesium Level 1.8 MG/DL (1.8-2.4) Total Bilirubin 0.4 MG/DL (0.2-1.0) Aspartate Amino Transf (AST/SGOT) 41 U/L (15-37) H Alanine Aminotransferase (ALT/SGPT) 52 U/L (12-78) Alkaline Phosphatase 66 U/L (46-116) C-Reactive Protein, Quantitative 2.1 mg/dL (0.00-0.90) H Pro-B-Type Natriuretic Peptide 843 pg/mL (0-125) H Total Protein 4.5 G/DL (6.4-8.2) L Albumin 1.6 G/DL (3.4-5.0) L Globulin 2.9 g/dL Albumin/Globulin Ratio 0.6 (1.0-2.7) L Thyroid Stimulating Hormone (TSH) 0.084 uiU/mL (0.358-3.740) Free Thyroxine 1.49 NG/DL (0.76-1.46) H Free Triiodothyronine 0.7 pg/mL (2.3-4.2) L Hepatitis B Surface Antigen Pending Hepatitis B Surface Antibody, Quant Pending Hepatitis C Antibody Pending Plan Problems: (1) DKA (diabetic ketoacidoses) (2) Renal failure (ARF), acute on chronic (3) COVID-19 virus infection Assessment & Plan: 75-year-old male Covid positive renal insufficiency recently had temporary dialysis catheter placement develop leukocytosis soon after. Vitals noted. Exam stable. Catheter was evaluated no acute active inflammatory or infectious process identified. Catheter is clean dry intact. The dressings are not saturated. There is no active bleeding identified. There is no signs of active infection. Leukocytosis anterior collated to medications currently given for COVID-19 infection. Will monitor closely to ensure no active development of infection or related to catheter placement. Thank you for let me participate patient's care will follow with recommendations trend leukocytosis cont dressings cont care plan as noted cont HD trend renal function (4) Rhabdomyolysis Assessment & Plan: DAILY ESTIMATED NEEDS: Needs based on DM, pulmonary 68.4kg 25-30 kcals/kg 0106-9118 total kcals 1-1.5 g protein/kg 68-102 g total protein 25-30 mL/kg 8325-6250 total fluid mLs NUTRITION DIAGNOSIS: Altered nutrition related lab values r/t DKA as evidenced by Uglu 4+ on adm, small acetone detected, BG 1087, A1C 8.1. CURRENT DIET: Renal + Ensure TID PO DIET RECOMMENDATIONS: With poor po rec LOW NA/ CCHO MED diet (texture as tolerated) ENTERAL NUTRITION RECOMMENDATIONS: Consider non oral feeds if part of POC w/ poor po intake ADDITIONAL RECOMMENDATIONS: 1) Recommend supplement w/ continued poor intake Nepro TID w/ elevated K 2) Monitor BG w/ poor po, pt at risk for hypoglycemia w/ insulin regimen 3) Maintain calibrated bed scale wts 4) Non oral feeds of part of POC, w/ continued poor to fair po intake Pt is A&O x1, on haldol Patient pulled out right femoral central line (henry cath). Pressure was applied for 10mins. Bleeding was stopped. Dressing was applied to site will plan for new line (5) Diabetes mellitus out of control (6) Abnormal thyroid blood test (7) NSTEMI (non-ST elevated myocardial infarction) Norberto Steele Nov 09, 2020 16:40
--- NOTE | 2020-11-09 19:13 | General Progress Note ---
Subjective ROS Limited/Unobtainable: Yes Allergies: Coded Allergies: No Known Allergies (Unverified , 10/31/20) Objective Last 24 Hour Vital Signs Date Time Temp Pulse Resp B/P (MAP) Pulse Ox O2 Delivery O2 Flow Rate FiO2 11/09/20 17:12 73 108/51 11/09/20 16:00 97.7 73 20 108/51 (70) 96 11/09/20 16:00 73 11/09/20 12:00 59 11/09/20 12:00 97.7 77 20 147/51 (83) 96 11/09/20 09:00 Nasal Cannula 3.0 11/09/20 08:58 61 117/60 11/09/20 08:58 61 117/60 11/09/20 08:00 71 11/09/20 08:00 97.7 71 20 134/58 (83) 95 11/09/20 07:00 95 Nasal Cannula 3.0 32 11/09/20 04:00 97.9 61 17 117/60 (79) 94 11/09/20 03:08 73 11/09/20 00:04 58 11/09/20 00:00 97.9 61 17 117/60 (79) 94 11/09/20 00:00 80 11/09/20 00:00 58 11/08/20 21:00 Nasal Cannula 3.0 11/08/20 20:42 76 128/52 11/08/20 20:00 96.1 76 18 128/52 (77) 95 Intake and Output 11/08/20 11/09/20 19:00 07:00 Intake Total 120 ml Output Total 2000 ml Balance -2000 ml 120 ml Intake Oral 120 ml Hemodialysis UF 2000 ml # Voids 3 # Bowel Movements 3 3 Laboratory Tests 11/08/20 20:29: POC Whole Blood Glucose 341H 11/09/20 05:37: POC Whole Blood Glucose 335H 11/09/20 05:52: White Blood Count 12.7H, Red Blood Count 2.90L, Hemoglobin 8.8L, Hematocrit 26.2L, Mean Corpuscular Volume 90, Mean Corpuscular Hemoglobin 30.4, Mean Corpuscular Hemoglobin Concent 33.7, Red Cell Distribution Width 12.4, Platelet Count 219, Mean Platelet Volume 6.3L, Neutrophils (%) (Auto) , Lymphocytes (%) (Auto) , Monocytes (%) (Auto) , Eosinophils (%) (Auto) , Basophils (%) (Auto) , Differential Total Cells Counted 100, Neutrophils % (Manual) 92H, Lymphocytes % (Manual) 5L, Monocytes % (Manual) 3, Eosinophils % (Manual) 0, Basophils % (Manual) 0, Band Neutrophils 0, Platelet Estimate Adequate, Platelet Morphology Normal, Hypochromasia 1+, Sodium Level 136, Potassium Level 4.3, Chloride Level 100, Carbon Dioxide Level 30, Anion Gap 6, Blood Urea Nitrogen 42H, Creatinine 2.8H, Estimat Glomerular Filtration Rate 22.1, Glucose Level 341#H, Uric Acid 2.8, Calcium Level 8.0L, Phosphorus Level 4.7, Magnesium Level 1.8, Total Bilirubin 0.4, Aspartate Amino Transf (AST/SGOT) 41H, Alanine Aminotransferase (ALT/SGPT) 52, Alkaline Phosphatase 66, C-Reactive Protein, Quantitative 2.1H, Pro-B-Type Natriuretic Peptide 843H, Total Protein 4.5L, Albumin 1.6L, Globulin 2.9, Albumin/Globulin Ratio 0.6L, Thyroid Stimulating Hormone (TSH) 0.084L, Free Thyroxine 1.49H, Free Triiodothyronine 0.7L, Hepatitis B Surface Antigen [Pending], Hepatitis B Surface Antibody, Quant [Pending], Hepatitis C Antibody [Pending] 11/09/20 17:04: POC Whole Blood Glucose 93 Height (Feet): 5 Height (Inches): 5.00 Weight (Pounds): 150 Assessment/Plan Problem List: (1) Renal failure (ARF), acute on chronic ICD Codes: N17.9 - Acute kidney failure, unspecified; N18.9 - Chronic kidney disease, unspecified SNOMED: 057706685 (2) DKA (diabetic ketoacidoses) ICD Codes: E11.10 - Type 2 diabetes mellitus with ketoacidosis without coma SNOMED: 433729034, 36165600 (3) COVID-19 virus infection ICD Codes: U07.1 - COVID-19 SNOMED: 929840002 (4) Rhabdomyolysis ICD Codes: M62.82 - Rhabdomyolysis SNOMED: 740581504 (5) Diabetes mellitus out of control ICD Codes: E11.65 - Type 2 diabetes mellitus with hyperglycemia SNOMED: 71374871, 158502572 (6) Abnormal thyroid blood test ICD Codes: R79.89 - Other specified abnormal findings of blood chemistry SNOMED: 370134084, 650504728862697 (7) NSTEMI (non-ST elevated myocardial infarction) ICD Codes: I21.4 - Non-ST elevation (NSTEMI) myocardial infarction SNOMED: 09022103 Status: progressing, unchanged Assessment/Plan: covid + dka esrd hd per renal check lytes check h/h niddm Corey Soto MD Nov 09, 2020 19:13
--- NOTE | 2020-11-09 19:35 | NUR ---
HAND-OFF: Report given to Damion galarza.
--- NOTE | 2020-11-09 19:36 | NUR ---
NURSE NOTES: Patient received from ARPITA Moreno. Patient is A/O x 1. Patient appears to be confused and is attempting to get out of bed. Patient is Spanish speaking. Patient is noted to be on restraints, no injuries has been noted. Patient is on nasal cannula 2 L with no signs of acute respiratory distress noted. Patient has urinal in bed. Patient has a right 22 gauge IV saline lock. Bed is in the lowest position and locked, call light within reach. Will continue to monitor.
[2020-11-09 20:00] VITALS: BP 110/44
[2020-11-09] MEDS: Dyna-Hex 2% Top Sol 2oz TOPIC SCH (20:00)
--- NOTE | 2020-11-09 20:00 | NUR ---
NURSE NOTES: CHG Bath not given. Central line access removed by patient per AM nurse.
--- NOTE | 2020-11-09 23:53 | Psychiatric Progress Note ---
Psychiatry Progress Note Psychiatry Progress Note Medications Current Medications Medications (Trade) Dose Ordered Sig/Manasa Route PRN Reason Start Time Stop Time Status Last Admin Dose Admin Acetaminophen (Tylenol) 500 mg Q4H PRN ORAL For Pain 11/01/20 01:00 12/01/20 00:59 11/01/20 18:50 Acetaminophen (Tylenol) 650 mg Q4H PRN RECTAL Temp >100.5 11/01/20 21:30 12/01/20 21:29 Allopurinol (Zyloprim) 200 mg DAILY ORAL 11/01/20 16:00 12/01/20 15:59 11/09/20 08:58 Amiodarone HCl (Cordarone) 200 mg DAILY ORAL 11/10/20 09:00 02/08/21 08:59 Chlorhexidine Gluconate (María Elena-Hex 2%) 1 applic DAILY@1999 TOPIC 11/04/20 20:00 02/02/21 19:59 11/08/20 20:34 Clonidine HCl (Catapres Tab) 0.1 mg Q4H PRN ORAL bp over 160 syst 10/31/20 17:45 01/29/21 17:44 11/01/20 09:20 Dexamethasone Sodium Phosphate (Decadron 10mg/ ml Inj) 6 mg DAILY IV 11/03/20 09:00 11/13/20 08:59 11/09/20 08:57 Dextrose (Dextrose 50%) 25 ml Q30M PRN IV Hypoglycemia 11/01/20 07:15 01/30/21 07:14 Dextrose (Dextrose 50%) 50 ml Q30M PRN IV Hypoglycemia 11/01/20 07:15 01/30/21 07:14 Diltiazem HCl (Cardizem Tab) 90 mg BID ORAL 11/07/20 10:15 12/02/20 17:59 11/09/20 17:12 Docusate Sodium (Colace) 100 mg TWICE A DAY ORAL 10/31/20 18:00 11/30/20 17:59 11/09/20 17:12 Haloperidol Lactate (Haldol) 5 mg Q6H PRN IM Agitation 11/06/20 21:30 12/21/20 21:29 11/09/20 02:40 Heparin Sodium (Porcine) (Heparin Sod 1000 units/ml 10ml) 1,000 unit ONCE PRN INJ PROCEDURE 11/08/20 13:26 11/09/20 23:59 Insulin Aspart (NovoLOG) BEFORE MEALS AND HS SUBQ 11/01/20 11:30 01/30/21 11:29 11/09/20 12:27 Insulin Aspart (NovoLOG) 12 units NOVOTIAC SUBQ 11/09/20 11:50 01/30/21 11:49 11/09/20 11:50 Insulin Detemir (Levemir) 18 units BID SUBQ 11/09/20 09:00 01/30/21 08:59 11/09/20 08:57 Methimazole (Tapazole) 10 mg DAILY ORAL 11/03/20 09:00 12/03/20 08:59 11/09/20 08:58 Metoprolol Tartrate (Lopressor) 50 mg Q12HR ORAL 11/01/20 21:00 01/30/21 20:59 11/09/20 08:58 Ondansetron HCl (Zofran) 4 mg Q6H PRN IVP Nausea & Vomiting 11/07/20 16:30 12/07/20 16:29 11/07/20 17:28 Pantoprazole (Protonix) 40 mg BID ORAL 10/31/20 18:00 11/30/20 17:44 11/09/20 17:11 Sitagliptin Phosphate (Januvia) 25 mg ACBREAKFAST ORAL 11/06/20 06:30 12/06/20 06:29 11/09/20 06:10 Tamsulosin HCl (Flomax) 0.4 mg BID ORAL 11/03/20 12:00 12/03/20 11:59 11/09/20 17:12 Neurological/Psychiatric: Reports: anxiety, depressed, emotional problems Allergies: Coded Allergies: No Known Allergies (Unverified , 10/31/20) Objective Data Height (Feet): 5 Height (Inches): 5.00 Weight (Pounds): 150 General Appearance: no apparent distress, lethargic, confused Additional Comments: confused, disoriented, Slovak-speaking. Mood is agitated. Affect is flat. Thought process disorganized. Thought content, no suicidal, homicidal ideation. Cognition is impaired. Insight and judgment is impaired. ASSESSMENT: [place] I Acute toxic encephalopathy. Dementia. [place] II Deferred. [place] III COVID-19. [place] IV Low. [place] V 20 PLAN: 1. We will start the patient on soft restraints. 2. Continue to follow and readjust the meds. Assessment/Plan Status: progressing, unchanged Brigido Singh MD Nov 09, 2020 23:53
[2020-11-10] VITALS: BP 127/59
[2020-11-10 04:00] VITALS: BP 113/50
[2020-11-10 06:05] LABS: HEMATOCRIT 24.7 % (42.0-52.0); HEMOGLOBIN 8.4 G/DL (14.2-18.0); MEAN CORPUSCULAR VOLUME 89 FL (80-99); PLATELET COUNT 236 K/UL (150-450); RED BLOOD COUNT 2.77 M/UL (4.70-6.10); WHITE BLOOD COUNT 12.6 K/UL (4.8-10.8)
[2020-11-10] MEDS: sitaGLIPtin 25mg tab ORAL SCH (06:07)
--- NOTE | 2020-11-10 06:18 | General Progress Note ---
Subjective ROS Limited/Unobtainable: Yes Allergies: Coded Allergies: No Known Allergies (Unverified , 10/31/20) Subjective events noted interval notes reviewed labile glucose Item Value Date Time Bedside Blood Glucose 109 mg/dl 11/09/20 2100 Bedside Blood Glucose 93 mg/dl 11/09/20 1800 Bedside Blood Glucose 352 mg/dl H 11/09/20 1227 Bedside Blood Glucose 335 mg/dl H 11/09/20 0857 Bedside Blood Glucose 335 mg/dl H 11/09/20 0630 Objective Last 24 Hour Vital Signs Date Time Temp Pulse Resp B/P (MAP) Pulse Ox O2 Delivery O2 Flow Rate FiO2 11/10/20 04:00 67 11/10/20 04:00 98.1 71 16 113/50 (71) 98 11/10/20 00:00 75 11/10/20 00:00 99.3 83 20 127/59 (81) 95 11/09/20 21:00 Nasal Cannula 2.0 11/09/20 20:31 79 110/44 11/09/20 20:00 80 11/09/20 20:00 98.1 79 20 110/44 (66) 97 11/09/20 17:12 73 108/51 11/09/20 16:00 97.7 73 20 108/51 (70) 96 11/09/20 16:00 73 11/09/20 12:00 59 11/09/20 12:00 97.7 77 20 147/51 (83) 96 11/09/20 09:00 Nasal Cannula 3.0 11/09/20 08:58 61 117/60 11/09/20 08:58 61 117/60 11/09/20 08:00 71 11/09/20 08:00 97.7 71 20 134/58 (83) 95 11/09/20 07:00 95 Nasal Cannula 3.0 32 Intake and Output 11/09/20 11/10/20 19:00 07:00 Intake Total 250 ml Output Total 350 ml Balance -100 ml Intake Oral 250 ml Output Urine Total 350 ml # Bowel Movements 4 3 Laboratory Tests 11/09/20 17:04: POC Whole Blood Glucose 93 11/09/20 20:34: POC Whole Blood Glucose 109H 11/10/20 04:00: White Blood Count [Pending], Red Blood Count [Pending], Hemoglobin [Pending], Hematocrit [Pending], Mean Corpuscular Volume [Pending], Mean Corpuscular Hemoglobin [Pending], Mean Corpuscular Hemoglobin Concent [Pending], Red Cell Distribution Width [Pending], Platelet Count [Pending], Mean Platelet Volume [Pending], Neutrophils (%) (Auto) [Pending], Lymphocytes (%) (Auto) [Pending], Monocytes (%) (Auto) [Pending], Eosinophils (%) (Auto) [Pending], Basophils (%) (Auto) [Pending], Sodium Level [Pending], Potassium Level [Pending], Chloride Le bryson [Pending], Carbon Dioxide Level [Pending], Blood Urea Nitrogen [Pending], Creatinine [Pending], Estimat Glomerular Filtration Rate [Pending], Glucose Level [Pending], Calcium Level [Pending], Phosphorus Level [Pending], Magnesium Level [Pending], Total Bilirubin [Pending], Aspartate Amino Transf (AST/SGOT) [Pending], Alanine Aminotransferase (ALT/SGPT) [Pending], Alkaline Phosphatase [Pending], C-Reactive Protein, Quantitative [Pending], Pro-B-Type Natriuretic Peptide [Pending], Total Protein [Pending], Albumin [Pending], Globulin [Pending] Height (Feet): 5 Height (Inches): 5.00 Weight (Pounds): 150 Objective Current Medications Medications (Trade) Dose Ordered Sig/Manasa Route PRN Reason Start Time Stop Time Status Last Admin Dose Admin Acetaminophen (Tylenol) 500 mg Q4H PRN ORAL For Pain 11/01/20 01:00 12/01/20 00:59 11/01/20 18:50 Acetaminophen (Tylenol) 650 mg Q4H PRN RECTAL Temp >100.5 11/01/20 21:30 12/01/20 21:29 Allopurinol (Zyloprim) 200 mg DAILY ORAL 11/01/20 16:00 12/01/20 15:59 11/09/20 08:58 Amiodarone HCl (Cordarone) 200 mg DAILY ORAL 11/10/20 09:00 02/08/21 08:59 Chlorhexidine Gluconate (María Elena-Hex 2%) 1 applic DAILY@1999 TOPIC 11/04/20 20:00 02/02/21 19:59 11/08/20 20:34 Clonidine HCl (Catapres Tab) 0.1 mg Q4H PRN ORAL bp over 160 syst 10/31/20 17:45 01/29/21 17:44 11/01/20 09:20 Dexamethasone Sodium Phosphate (Decadron 10mg/ ml Inj) 6 mg DAILY IV 11/03/20 09:00 11/13/20 08:59 11/09/20 08:57 Dextrose (Dextrose 50%) 25 ml Q30M PRN IV Hypoglycemia 11/01/20 07:15 01/30/21 07:14 Dextrose (Dextrose 50%) 50 ml Q30M PRN IV Hypoglycemia 11/01/20 07:15 01/30/21 07:14 Diltiazem HCl (Cardizem Tab) 90 mg BID ORAL 11/07/20 10:15 12/02/20 17:59 11/09/20 17:12 Docusate Sodium (Colace) 100 mg TWICE A DAY ORAL 10/31/20 18:00 11/30/20 17:59 11/09/20 17:12 Haloperidol Lactate (Haldol) 5 mg Q6H PRN IM Agitation 11/06/20 21:30 12/21/20 21:29 11/09/20 02:40 Insulin Aspart (NovoLOG) BEFORE MEALS AND HS SUBQ 11/01/20 11:30 01/30/21 11:29 11/09/20 12:27 Insulin Aspart (NovoLOG) 12 units NOVOTIAC SUBQ 11/09/20 11:50 01/30/21 11:49 11/09/20 11:50 Insulin Detemir (Levemir) 18 units BID SUBQ 11/09/20 09:00 01/30/21 08:59 11/09/20 08:57 Methimazole (Tapazole) 10 mg DAILY ORAL 11/03/20 09:00 12/03/20 08:59 11/09/20 08:58 Metoprolol Tartrate (Lopressor) 50 mg Q12HR ORAL 11/01/20 21:00 01/30/21 20:59 11/09/20 08:58 Ondansetron HCl (Zofran) 4 mg Q6H PRN IVP Nausea & Vomiting 11/07/20 16:30 2/10/21 16:29 11/07/20 17:28 Pantoprazole (Protonix) 40 mg BID ORAL 10/31/20 18:00 11/30/20 17:44 11/09/20 17:11 Sitagliptin Phosphate (Januvia) 25 mg ACBREAKFAST ORAL 11/06/20 06:30 12/06/20 06:29 11/10/20 06:07 Tamsulosin HCl (Flomax) 0.4 mg BID ORAL 11/03/20 12:00 12/03/20 11:59 11/09/20 17:12 Assessment/Plan Problem List: (1) Abnormal thyroid blood test ICD Codes: R79.89 - Other specified abnormal findings of blood chemistry SNOMED: 122987180, 449717759971440 (2) Diabetes mellitus out of control ICD Codes: E11.65 - Type 2 diabetes mellitus with hyperglycemia SNOMED: 78328155, 437066837 (3) Renal failure (ARF), acute on chronic ICD Codes: N17.9 - Acute kidney failure, unspecified; N18.9 - Chronic kidney disease, unspecified SNOMED: 369751687 (4) COVID-19 virus infection ICD Codes: U07.1 - COVID-19 SNOMED: 937609389 (5) DKA (diabetic ketoacidoses) ICD Codes: E11.10 - Type 2 diabetes mellitus with ketoacidosis without coma SNOMED: 866213425, 67431117 (6) NSTEMI (non-ST elevated myocardial infarction) ICD Codes: I21.4 - Non-ST elevation (NSTEMI) myocardial infarction SNOMED: 81834552 Status: progressing, unchanged Assessment/Plan: change Levemir to 15 units bid reduce Novolog to 10 units ac tid + SSI continue Januvia 25 mg daily continue Tapazole 10 mg daily TSI pending Markus Tamez MD Nov 10, 2020 06:18
[2020-11-10] MEDS: NovoLOG Insulin Flexpen SUBQ SCH ×8 (06:21→21:35)
[2020-11-10 06:43] LABS: ALBUMIN 1.6 G/DL (3.4-5.0); ALBUMIN/GLOBULIN RATIO 0.6 (1.0-2.7); BILIRUBIN,TOTAL 0.5 MG/DL (0.2-1.0); CALCIUM 7.6 MG/DL (8.5-10.1); CREATININE 3.1 MG/DL (0.55-1.30); PHOSPHORUS 4.3 MG/DL (2.5-4.9)
--- NOTE | 2020-11-10 07:15 | NUR ---
NURSE NOTES:NURSE HAND-OFF REPORT: Important Events on Shift:[Patient still tries to get out of bed. Appears to be confused] Patient Status: [Stable] Diet: [Renal Pureed Diet] Pending Orders: [] Pending Results/Labs:[] Pending MD notification:[] Latest Vital Signs: Temperature 98.1 , Pulse 67 , B/P 113 /50 , Respiratory Rate 16 , O2 SAT 98 , Nasal Cannula, O2 Flow Rate 2.0 . Vital Sign Comment: [] EKG Rhythm: Sinus Rhythm Rhythm change?: N Notified?: Amari MCQUEEN MD Response: Message left await call Latest Bhat Fall Score: 60 Fall Risk: High Risk Safety Measures: Call light Within Reach, Bed Alarm Zone 1, Side Rails Side Rails x3, Bed position Low and Locked. Fall Precautions: Yellow Socks Report given to [ARPITA Moreno].
--- NOTE | 2020-11-10 07:21 | NUR ---
NURSE NOTES: pt is alert and awake in bed. respiration is even and unlabored with o2 @2l/min via NC. hob in semi-chowdhury. no grimacing for pain noted. no acute distress notes at this time. placed call light within reach.
[2020-11-10 08:00] VITALS: BP 123/59
--- NOTE | 2020-11-10 08:40 | Cardiac Electrophysiology PN ---
Assessment/Plan Assessment/Plan 1. NSTEMI with troponin of 0.25 and 0.35 in this patient with DKA as well as atrial flutter with rapid ventricular response. On metoprolol 50 mg b.i.d. EF 65% 2. Atrial flutter with RVR On metoprolol 50 mg bid, Cardizem 90 bid and Amiodarone 200 po daily Eliquis held for hematuria 3. Diabetic ketoacidosis with glucose of more than 1000. 4. Accelerated hypertension. On Lopressor 50 bid and Cardizem 90 bid 5. COVID positive pneumonia. 6. Acute Renal failure in the setting of total CK of 1900, maybe rhabdomyolysis- induced renal failure. On HD via RFV Yazan by Dr. Buckley. RFV Yazan pulled out by patient. New access is being considered BNP 550. Cr 3.1 DW RN Subjective Subjective Pulled out his RFV Yazan catheter after HD 11/08/20 In restraints in covid isolation. On 2 liter NC. In SR on Amio, Cardizem and metoprolol. Off Eliquis due to hematuria No new HD catheter yet Objective Last 24 Hour Vital Signs Date Time Temp Pulse Resp B/P (MAP) Pulse Ox O2 Delivery O2 Flow Rate FiO2 11/10/20 04:00 67 11/10/20 04:00 98.1 71 16 113/50 (71) 98 11/10/20 00:00 75 11/10/20 00:00 99.3 83 20 127/59 (81) 95 11/09/20 21:00 Nasal Cannula 2.0 11/09/20 20:31 79 110/44 11/09/20 20:00 80 11/09/20 20:00 98.1 79 20 110/44 (66) 97 11/09/20 17:12 73 108/51 11/09/20 16:00 97.7 73 20 108/51 (70) 96 11/09/20 16:00 73 11/09/20 12:00 59 11/09/20 12:00 97.7 77 20 147/51 (83) 96 11/09/20 09:00 Nasal Cannula 3.0 11/09/20 08:58 61 117/60 11/09/20 08:58 61 117/60 Intake and Output 11/09/20 11/10/20 19:00 07:00 Intake Total 250 ml Output Total 350 ml Balance -100 ml Intake Oral 250 ml Output Urine Total 350 ml # Voids 3 # Bowel Movements 4 3 Laboratory Tests Test 11/09/20 17:04 11/09/20 20:34 11/10/20 04:00 11/10/20 06:14 POC Whole Blood Glucose 93 MG/DL (74-106) 109 MG/DL (74-106) H Pending White Blood Count 12.6 K/UL (4.8-10.8) H Red Blood Count 2.77 M/UL (4.70-6.10) L Hemoglobin 8.4 G/DL (14.2-18.0) L Hematocrit 24.7 % (42.0-52.0) L Mean Corpuscular Volume 89 FL (80-99) Mean Corpuscular Hemoglobin 30.5 PG (27.0-31.0) Mean Corpuscular Hemoglobin Concent 34.2 G/DL (32.0-36.0) Red Cell Distribution Width 12.0 % (11.6-14.8) Platelet Count 236 K/UL (150-450) Mean Platelet Volume 6.8 FL (6.5-10.1) Neutrophils (%) (Auto) % (45.0-75.0) Lymphocytes (%) (Auto) % (20.0-45.0) Monocytes (%) (Auto) % (1.0-10.0) Eosinophils (%) (Auto) % (0.0-3.0) Basophils (%) (Auto) % (0.0-2.0) Sodium Level 138 MMOL/L (136-145) Potassium Level 4.0 MMOL/L (3.5-5.1) Chloride Level 102 MMOL/L (98-107) Carbon Dioxide Level 31 MMOL/L (21-32) Anion Gap 5 mmol/L (5-15) Blood Urea Nitrogen 56 mg/dL (7-18) H Creatinine 3.1 MG/DL (0.55-1.30) H Estimat Glomerular Filtration Rate 19.7 mL/min (>60) Glucose Level 137 MG/DL (74-106) #H Calcium Level 7.6 MG/DL (8.5-10.1) L Phosphorus Level 4.3 MG/DL (2.5-4.9) Magnesium Level 1.9 MG/DL (1.8-2.4) Total Bilirubin 0.5 MG/DL (0.2-1.0) Aspartate Amino Transf (AST/SGOT) 30 U/L (15-37) Alanine Aminotransferase (ALT/SGPT) 54 U/L (12-78) Alkaline Phosphatase 66 U/L (46-116) C-Reactive Protein, Quantitative 2.4 mg/dL (0.00-0.90) H Pro-B-Type Natriuretic Peptide 652 pg/mL (0-125) H Total Protein 4.5 G/DL (6.4-8.2) L Albumin 1.6 G/DL (3.4-5.0) L Globulin 2.9 g/dL Albumin/Globulin Ratio 0.6 (1.0-2.7) L Objective HEAD AND NECK: Shows no JVD. LUNGS: Clear. CARDIOVASCULAR: Shows regular S1 and S2 with no gallop. ABDOMEN: Soft. EXTREMITIES: Right Femoral Yazan is pulled out. No pitting edema. Sivakumar Escalante MD Nov 10, 2020 08:40
[2020-11-10] MEDS: dilTIAZem HCl 90mg tab ORAL SCH ×2 (08:54→17:36)
[2020-11-10] MEDS: methIMAzole 10mg tab ORAL SCH (08:54)
[2020-11-10] MEDS: Docusate 100mg cap ORAL SCH ×2 (08:54→17:36)
[2020-11-10] MEDS: Tamsulosin 0.4mg cap ORAL SCH ×2 (08:54→17:36)
[2020-11-10] MEDS: dexAMETHasone 10mg/ml Inj IV SCH (08:55)
[2020-11-10] MEDS: Metoprolol Tartrate 50mg tab ORAL SCH ×2 (08:55→21:34)
[2020-11-10] MEDS: Amiodarone 200mg tab ORAL SCH (08:55)
[2020-11-10] MEDS: Allopurinol 100mg Tab ORAL SCH (09:00)
[2020-11-10] MEDS: Levemir Flexpen SUBQ SCH ×2 (09:03→17:38)
--- NOTE | 2020-11-10 09:58 | Pulmonology Progress Note ---
Subjective ROS Limited/Unobtainable: Yes Interval Events: none major reported per nursing Constitutional: Denies: fever Gastrointestinal/Abdominal: Reports: diarrhea - C. diff negative Allergies: Coded Allergies: No Known Allergies (Unverified , 10/31/20) Objective Last 24 Hour Vital Signs Date Time Temp Pulse Resp B/P (MAP) Pulse Ox O2 Delivery O2 Flow Rate FiO2 11/10/20 08:55 82 123/59 11/10/20 08:54 82 123/59 11/10/20 08:00 98.0 82 19 123/59 (80) 95 11/10/20 04:00 67 11/10/20 04:00 98.1 71 16 113/50 (71) 98 11/10/20 00:00 75 11/10/20 00:00 99.3 83 20 127/59 (81) 95 11/09/20 21:00 Nasal Cannula 2.0 11/09/20 20:31 79 110/44 11/09/20 20:00 80 11/09/20 20:00 98.1 79 20 110/44 (66) 97 11/09/20 17:12 73 108/51 11/09/20 16:00 97.7 73 20 108/51 (70) 96 11/09/20 16:00 73 11/09/20 12:00 59 11/09/20 12:00 97.7 77 20 147/51 (83) 96 Intake and Output 11/09/20 11/10/20 19:00 07:00 Intake Total 250 ml Output Total 350 ml Balance -100 ml Intake Oral 250 ml Output Urine Total 350 ml # Voids 3 # Bowel Movements 4 3 Objective now saturating at 95% on 2L NC General Appearance: WD/WN, no acute distress HEENT: atraumatic Respiratory: chest wall non-tender Cardiovascular: regular rhythm, tachycardia Abdomen: soft, non tender Laboratory Tests 11/09/20 17:04: POC Whole Blood Glucose 93 11/09/20 20:34: POC Whole Blood Glucose 109H 11/10/20 04:00: White Blood Count 12.6H, Red Blood Count 2.77L, Hemoglobin 8.4L, Hematocrit 24.7L, Mean Corpuscular Volume 89, Mean Corpuscular Hemoglobin 30.5, Mean Corpuscular Hemoglobin Concent 34.2, Red Cell Distribution Width 12.0, Platelet Count 236, Mean Platelet Volume 6.8, Neutrophils (%) (Auto) , Lymphocytes (%) (Auto) , Monocytes (%) (Auto) , Eosinophils (%) (Auto) , Basophils (%) (Auto) , Sodium Level 138, Potassium Level 4.0, Chloride Level 102, Carbon Dioxide Level 31, Anion Gap 5, Blood Urea Nitrogen 56H, Creatinine 3.1H, Estimat Glomerular Filtration Rate 19.7, Glucose Level 137#H, Calcium Level 7.6L, Phosphorus Level 4.3, Magnesium Level 1.9, Total Bilirubin 0.5, Aspartate Amino Transf (AST/SGOT) 30, Alanine Aminotransferase (ALT/SGPT) 54, Alkaline Phosphatase 66, C-Reactive Protein, Quantitative 2.4H, Pro-B-Type Natriuretic Peptide 652H, Total Protein 4.5L, Albumin 1.6L, Globulin 2.9, Albumin/Globulin Ratio 0.6L 11/10/20 06:14: POC Whole Blood Glucose [Pending] Current Medications Medications (Trade) Dose Ordered Sig/Manasa Route PRN Reason Start Time Stop Time Status Last Admin Dose Admin Acetaminophen (Tylenol) 500 mg Q4H PRN ORAL For Pain 11/01/20 01:00 12/01/20 00:59 11/01/20 18:50 Acetaminophen (Tylenol) 650 mg Q4H PRN RECTAL Temp >100.5 11/01/20 21:30 12/01/20 21:29 Allopurinol (Zyloprim) 200 mg DAILY ORAL 11/01/20 16:00 12/01/20 15:59 11/09/20 08:58 Amiodarone HCl (Cordarone) 200 mg DAILY ORAL 11/10/20 09:00 02/08/21 08:59 11/10/20 08:55 Chlorhexidine Gluconate (María Elena-Hex 2%) 1 applic DAILY@1999 TOPIC 11/04/20 20:00 02/02/21 19:59 11/08/20 20:34 Clonidine HCl (Catapres Tab) 0.1 mg Q4H PRN ORAL bp over 160 syst 10/31/20 17:45 01/29/21 17:44 11/01/20 09:20 Dexamethasone Sodium Phosphate (Decadron 10mg/ ml Inj) 6 mg DAILY IV 11/03/20 09:00 11/13/20 08:59 11/10/20 08:55 Dextrose (Dextrose 50%) 25 ml Q30M PRN IV Hypoglycemia 11/01/20 07:15 01/30/21 07:14 Dextrose (Dextrose 50%) 50 ml Q30M PRN IV Hypoglycemia 11/01/20 07:15 01/30/21 07:14 Diltiazem HCl (Cardizem Tab) 90 mg BID ORAL 11/07/20 10:15 12/02/20 17:59 11/10/20 08:54 Docusate Sodium (Colace) 100 mg TWICE A DAY ORAL 10/31/20 18:00 11/30/20 17:59 11/10/20 08:54 Haloperidol Lactate (Haldol) 5 mg Q6H PRN IM Agitation 11/06/20 21:30 12/21/20 21:29 11/09/20 02:40 Insulin Aspart (NovoLOG) BEFORE MEALS AND HS SUBQ 11/01/20 11:30 01/30/21 11:29 11/10/20 06:23 Insulin Aspart (NovoLOG) 10 units NOVOTIAC SUBQ 11/10/20 06:30 01/30/21 11:49 Insulin Detemir (Levemir) 15 units BID SUBQ 11/10/20 09:00 01/30/21 08:59 11/10/20 09:03 Methimazole (Tapazole) 10 mg DAILY ORAL 11/03/20 09:00 12/03/20 08:59 11/10/20 08:54 Metoprolol Tartrate (Lopressor) 50 mg Q12HR ORAL 11/01/20 21:00 01/30/21 20:59 11/10/20 08:55 Ondansetron HCl (Zofran) 4 mg Q6H PRN IVP Nausea & Vomiting 11/07/20 16:30 12/07/20 16:29 11/07/20 17:28 Pantoprazole (Protonix) 40 mg BID ORAL 10/31/20 18:00 11/30/20 17:44 11/10/20 08:54 Sitagliptin Phosphate (Januvia) 25 mg ACBREAKFAST ORAL 11/06/20 06:30 12/06/20 06:29 11/10/20 06:07 Tamsulosin HCl (Flomax) 0.4 mg BID ORAL 11/03/20 12:00 12/03/20 11:59 11/10/20 08:54 Assessment/Plan Assessment/Plan 1. Non-ST elevation myocardial infarction. - cardiology following 2. Diabetic ketoacidosis - seen by endocrinology - continue fluids - on insulin 3. Atrial flutter with rapid ventricular response. - Continue metoprolol 50 mg b.i.d. 4. COVID positive pneumonia. - on Decadron (11/03-) - Supplemental O2 - saturating at 95% on 2L NC; wean down as tolerated - CXR 11/04 developing b/l infilitrates 5. Renal failure with creatinine of 3.5. - nephrology following - pt pulled out femoral HD cath, new cath being considered 6. Accelerated hypertension. 7. Hyperthyroidism - Dr. Tamez following 8. Diarrhea - C. diff negative DVT ppx - Lovenox The care for this patient was discussed with my supervising physician Time spent for this case was approximately 31 minutes The patient was seen and examined at bedside and all new and available data was reviewed in the patients chart. I agree with the above findings, impression, and plan. (Patient was seen earlier today. Signature timestamp does not reflect patient encounter time) Singh Dela Cruz MD Nov 10, 2020 09:58 Petros Stewart MD Nov 10, 2020 16:45
--- NOTE | 2020-11-10 11:40 | NUR ---
CASE MANAGEMENT:REVIEW 11/10/20 SI: NSTEMI. COVID PNA. DKA. AFLUTTER W/RVR ACUTE ON CHRONIC RENAL FAILURE 98.0 82 19 123/59 95% ON 2L/NC LABS ARE CURRENTLY PENDING IS: CARDIZEM PO BID AMIODARONE PO QD NOVOLOG SQ TID AC JANUVIA PO QAM SS INSULIN AC+HS LEVEMIR SQ QD FLOMAX PO BID TAPAZOLE PO QD IV DECADRON QD LOPRESSOR PO Q12 PROTONIX PO BID : TELEMETRY STATUS DCP: FROM HOME PLAN: WEAN OXYGEN TOLERATED RT FEMORAL NON TUNNELED DIALYSIS CATHETER IN PLACE HEPATITIS PANEL PENDING WOULD LIKE TO SPEAK WITH DERICK ELLIS WREATH MACHINE TENDER ABOUT THIS CASE
--- NOTE | 2020-11-10 11:45 | NUR ---
ASE MANAGEMENT:REVIEW 11/10/20 SI: NSTEMI. COVID PNA. DKA. AFLUTTER W/RVR ACUTE ON CHRONIC RENAL FAILURE 98.0 82 19 123/59 95% ON 2L/NC WBC+12.6 H/H-8.4/24.7 BUN+56 CR+3.1 IS: CARDIZEM PO BID AMIODARONE PO QD NOVOLOG SQ TID AC JANUVIA PO QAM SS INSULIN AC+HS LEVEMIR SQ QD FLOMAX PO BID TAPAZOLE PO QD IV DECADRON QD LOPRESSOR PO Q12 PROTONIX PO BID : TELEMETRY STATUS DCP: FROM HOME PLAN: WEAN OXYGEN TOLERATED RT FEMORAL NON TUNNELED DIALYSIS CATHETER IN PLACE HEPATITIS PANEL PENDING WOULD LIKE TO SPEAK WITH DERICK ELLIS PELLET MILL OPERATOR ABOUT THIS CASE
[2020-11-10 12:00] VITALS: BP 126/57
--- NOTE | 2020-11-10 12:03 | Surgery Progress Note ---
Surgery Progress Note Subjective Procedure Performed Right femoral temporary hemodialysis catheter insertion Additional Comments cr worsening no bleeding from prior line pull will need new HD cath soon cont abx wbc stable Objective Last 24 Hour Vital Signs Date Time Temp Pulse Resp B/P (MAP) Pulse Ox O2 Delivery O2 Flow Rate FiO2 11/10/20 10:58 97 Nasal Cannula 2.0 28 11/10/20 09:00 Nasal Cannula 2.0 11/10/20 08:55 82 123/59 11/10/20 08:54 82 123/59 11/10/20 08:00 98.0 82 19 123/59 (80) 95 11/10/20 08:00 72 11/10/20 04:00 67 11/10/20 04:00 98.1 71 16 113/50 (71) 98 11/10/20 00:00 75 11/10/20 00:00 99.3 83 20 127/59 (81) 95 11/09/20 21:00 Nasal Cannula 2.0 11/09/20 20:31 79 110/44 11/09/20 20:00 80 11/09/20 20:00 98.1 79 20 110/44 (66) 97 11/09/20 17:12 73 108/51 11/09/20 16:00 97.7 73 20 108/51 (70) 96 11/09/20 16:00 73 I&O Intake and Output 11/09/20 11/10/20 19:00 07:00 Intake Total 250 ml Output Total 350 ml Balance -100 ml Intake Oral 250 ml Output Urine Total 350 ml # Voids 3 # Bowel Movements 4 3 Dressing: saturated Cardiovascular: RSR Respiratory: decreased breath sounds Abdomen: soft, non-tender, present bowel sounds, non-distended Extremities: no edema, no tenderness, no cyanosis, pulses, other Laboratory Tests Test 11/09/20 17:04 11/09/20 20:34 11/10/20 04:00 11/10/20 06:14 POC Whole Blood Glucose 93 MG/DL (74-106) 109 MG/DL (74-106) H Pending White Blood Count 12.6 K/UL (4.8-10.8) H Red Blood Count 2.77 M/UL (4.70-6.10) L Hemoglobin 8.4 G/DL (14.2-18.0) L Hematocrit 24.7 % (42.0-52.0) L Mean Corpuscular Volume 89 FL (80-99) Mean Corpuscular Hemoglobin 30.5 PG (27.0-31.0) Mean Corpuscular Hemoglobin Concent 34.2 G/DL (32.0-36.0) Red Cell Distribution Width 12.0 % (11.6-14.8) Platelet Count 236 K/UL (150-450) Mean Platelet Volume 6.8 FL (6.5-10.1) Neutrophils (%) (Auto) % (45.0-75.0) Lymphocytes (%) (Auto) % (20.0-45.0) Monocytes (%) (Auto) % (1.0-10.0) Eosinophils (%) (Auto) % (0.0-3.0) Basophils (%) (Auto) % (0.0-2.0) Sodium Level 138 MMOL/L (136-145) Potassium Level 4.0 MMOL/L (3.5-5.1) Chloride Level 102 MMOL/L (98-107) Carbon Dioxide Level 31 MMOL/L (21-32) Anion Gap 5 mmol/L (5-15) Blood Urea Nitrogen 56 mg/dL (7-18) H Creatinine 3.1 MG/DL (0.55-1.30) H Estimat Glomerular Filtration Rate 19.7 mL/min (>60) Glucose Level 137 MG/DL (74-106) #H Calcium Level 7.6 MG/DL (8.5-10.1) L Phosphorus Level 4.3 MG/DL (2.5-4.9) Magnesium Level 1.9 MG/DL (1.8-2.4) Total Bilirubin 0.5 MG/DL (0.2-1.0) Aspartate Amino Transf (AST/SGOT) 30 U/L (15-37) Alanine Aminotransferase (ALT/SGPT) 54 U/L (12-78) Alkaline Phosphatase 66 U/L (46-116) C-Reactive Protein, Quantitative 2.4 mg/dL (0.00-0.90) H Pro-B-Type Natriuretic Peptide 652 pg/mL (0-125) H Total Protein 4.5 G/DL (6.4-8.2) L Albumin 1.6 G/DL (3.4-5.0) L Globulin 2.9 g/dL Albumin/Globulin Ratio 0.6 (1.0-2.7) L Plan Problems: (1) DKA (diabetic ketoacidoses) (2) Renal failure (ARF), acute on chronic (3) COVID-19 virus infection Assessment & Plan: 75-year-old male Covid positive renal insufficiency recently had temporary dialysis catheter placement develop leukocytosis soon after. Vitals noted. Exam stable. Catheter was evaluated no acute active inflammatory or infectious process identified. Catheter is clean dry intact. The dressings are not saturated. There is no active bleeding identified. There is no signs of active infection. Leukocytosis anterior collated to medications currently given for COVID-19 infection. Will monitor closely to ensure no active development of infection or related to catheter placement. Thank you for let me participate patient's care will follow with recommendations trend leukocytosis cont dressings cont care plan as noted cont HD trend renal function (4) Rhabdomyolysis Assessment & Plan: DAILY ESTIMATED NEEDS: Needs based on DM, pulmonary 68.4kg 25-30 kcals/kg 7527-7114 total kcals 1-1.5 g protein/kg 68-102 g total protein 25-30 mL/kg 7365-7943 total fluid mLs NUTRITION DIAGNOSIS: Altered nutrition related lab values r/t DKA as evidenced by Uglu 4+ on adm, small acetone detected, BG 1087, A1C 8.1. CURRENT DIET: Renal + Ensure TID PO DIET RECOMMENDATIONS: With poor po rec LOW NA/ CCHO MED diet (texture as tolerated) ENTERAL NUTRITION RECOMMENDATIONS: Consider non oral feeds if part of POC w/ poor po intake ADDITIONAL RECOMMENDATIONS: 1) Recommend supplement w/ continued poor intake Nepro TID w/ elevated K 2) Monitor BG w/ poor po, pt at risk for hypoglycemia w/ insulin regimen 3) Maintain calibrated bed scale wts 4) Non oral feeds of part of POC, w/ continued poor to fair po intake Pt is A&O x1, on haldol Patient pulled out right femoral central line (henry cath). Pressure was applied for 10mins. Bleeding was stopped. Dressing was applied to site will plan for new line (5) Diabetes mellitus out of control (6) Abnormal thyroid blood test (7) NSTEMI (non-ST elevated myocardial infarction) Norberto Steele Nov 10, 2020 12:03
--- NOTE | 2020-11-10 13:11 | Nephrology Progress Note ---
Assessment/Plan Problem List: (1) Renal failure (ARF), acute on chronic (2) DKA (diabetic ketoacidoses) (3) COVID-19 virus infection (4) Rhabdomyolysis (5) Abnormal thyroid blood test (6) NSTEMI (non-ST elevated myocardial infarction) Assessment 75-year-old [place] male Covid positive Acute renal failure, most likely superimposed on chronic kidney disease Diabetes mellitus, presents with severe hyperglycemia and DKA History of hypertension Plan November 10: Lab reviewed. Serum creatinine rising. We will proceed with placement of a nontunneled catheter tomorrow and dialysis. Patient has leukocytosis at this time. Continue per consultants. November 09: Labs reviewed. Patient was dialyzed yesterday. Patient pulled out the dialysis catheter last night. Renal parameters stable. Continue to monitor and if dialysis needed to place a new temporary catheter. Per orders. November 08: Labs reviewed. Serum creatinine is plateauing. Due for dialysis today. We will continue to monitor renal parameters and dialysis as needed. November 07: Labs reviewed. Serum creatinine rising. IV fluid discontinued. Dialysis for tomorrow. Continue per consultants. November 06: Labs reviewed. Blood pressure stable. Medication list reviewed. Dialysis as needed. November 05: Due for dialysis today. Labs are reviewed. Blood pressure is stable. Continue to monitor renal parameters. November 04: Patient was dialyzed yesterday. 1 L ultrafiltrated. Labs reviewed. Renal parameters stable. Will attempt dialysis again tomorrow. Medication list reviewed. November 03: Labs reviewed. Serum creatinine rising. Patient has hematuria. Patient on Eliquis. Will arrange for placement of dialysis catheter and attempt to dialyze. Will start Flomax since the patient could not have a Anand catheter. Continue to monitor renal parameters. Continue per consultants. Discussed with RN. Consent for placement of nontunneled catheter ordered. Patient is also on Tapazole for high thyroid hormone. CPK is lowering. November 02: Labs reviewed. Serum creatinine up to 4. In S DU now. On Cardizem drip. Measured creatinine clearance . Patient may lead towards dialysis. Continue to monitor renal parameters. November 01: Renal parameters improving. Blood sugar is improving. Continue to monitor electrolytes renal parameters and urine output. Aim to control blood sugar and blood pressure. Avoid nephrotoxic's. Monitor CPK as it is elevated. Previously: Anand catheter Blood sugar control Slow hydration Monitor renal parameters Kidney ultrasound no hydronephrosis 2D echocardiogram ejection fraction 60 to 65%. Per orders Subjective ROS Limited/Unobtainable: Yes Objective Objective Last 24 Hour Vital Signs Date Time Temp Pulse Resp B/P (MAP) Pulse Ox O2 Delivery O2 Flow Rate FiO2 11/10/20 12:00 97.8 59 20 126/57 (80) 95 11/10/20 12:00 98 11/10/20 10:58 97 Nasal Cannula 2.0 28 11/10/20 09:00 Nasal Cannula 2.0 11/10/20 08:55 82 123/59 11/10/20 08:54 82 123/59 11/10/20 08:00 98.0 82 19 123/59 (80) 95 11/10/20 08:00 72 11/10/20 04:00 67 11/10/20 04:00 98.1 71 16 113/50 (71) 98 11/10/20 00:00 75 11/10/20 00:00 99.3 83 20 127/59 (81) 95 11/09/20 21:00 Nasal Cannula 2.0 11/09/20 20:31 79 110/44 11/09/20 20:00 80 11/09/20 20:00 98.1 79 20 110/44 (66) 97 11/09/20 17:12 73 108/51 11/09/20 16:00 97.7 73 20 108/51 (70) 96 11/09/20 16:00 73 Intake and Output 11/09/20 11/10/20 19:00 07:00 Intake Total 250 ml Output Total 350 ml Balance -100 ml Intake Oral 250 ml Output Urine Total 350 ml # Voids 3 # Bowel Movements 4 3 Current Medications Medications (Trade) Dose Ordered Sig/Manasa Route PRN Reason Start Time Stop Time Status Last Admin Dose Admin Acetaminophen (Tylenol) 500 mg Q4H PRN ORAL For Pain 11/01/20 01:00 12/01/20 00:59 11/01/20 18:50 Acetaminophen (Tylenol) 650 mg Q4H PRN RECTAL Temp >100.5 11/01/20 21:30 12/01/20 21:29 Allopurinol (Zyloprim) 200 mg DAILY ORAL 11/01/20 16:00 12/01/20 15:59 11/09/20 08:58 Amiodarone HCl (Cordarone) 200 mg DAILY ORAL 11/10/20 09:00 02/08/21 08:59 11/10/20 08:55 Chlorhexidine Gluconate (María Elena-Hex 2%) 1 applic DAILY@2000 TOPIC 11/04/20 20:00 02/02/21 19:59 11/08/20 20:34 Clonidine HCl (Catapres Tab) 0.1 mg Q4H PRN ORAL bp over 160 syst 10/31/20 17:45 01/29/21 17:44 11/01/20 09:20 Dexamethasone Sodium Phosphate (Decadron 10mg/ ml Inj) 6 mg DAILY IV 11/03/20 09:00 11/13/20 08:59 11/10/20 08:55 Dextrose (Dextrose 50%) 25 ml Q30M PRN IV Hypoglycemia 11/01/20 07:15 01/30/21 07:14 Dextrose (Dextrose 50%) 50 ml Q30M PRN IV Hypoglycemia 11/01/20 07:15 01/30/21 07:14 Diltiazem HCl (Cardizem Tab) 90 mg BID ORAL 11/07/20 10:15 12/02/20 17:59 11/10/20 08:54 Docusate Sodium (Colace) 100 mg TWICE A DAY ORAL 10/31/20 18:00 11/30/20 17:59 11/10/20 08:54 Haloperidol Lactate (Haldol) 5 mg Q6H PRN IM Agitation 11/06/20 21:30 12/21/20 21:29 11/09/20 02:40 Insulin Aspart (NovoLOG) BEFORE MEALS AND HS SUBQ 11/01/20 11:30 01/30/21 11:29 11/10/20 12:15 Insulin Aspart (NovoLOG) 10 units NOVOTIAC SUBQ 11/10/20 06:30 01/30/21 11:49 11/10/20 12:16 Insulin Detemir (Levemir) 15 units BID SUBQ 11/10/20 09:00 01/30/21 08:59 11/10/20 09:03 Methimazole (Tapazole) 10 mg DAILY ORAL 11/03/20 09:00 12/03/20 08:59 11/10/20 08:54 Metoprolol Tartrate (Lopressor) 50 mg Q12HR ORAL 11/01/20 21:00 01/30/21 20:59 11/10/20 08:55 Ondansetron HCl (Zofran) 4 mg Q6H PRN IVP Nausea & Vomiting 11/07/20 16:30 12/07/20 16:29 11/07/20 17:28 Pantoprazole (Protonix) 40 mg BID ORAL 10/31/20 18:00 11/30/20 17:44 11/10/20 08:54 Sitagliptin Phosphate (Januvia) 25 mg ACBREAKFAST ORAL 11/06/20 06:30 12/06/20 06:29 11/10/20 06:07 Tamsulosin HCl (Flomax) 0.4 mg BID ORAL 11/03/20 12:00 12/03/20 11:59 11/10/20 08:54 Laboratory Tests 11/09/20 17:04: POC Whole Blood Glucose 93 11/09/20 20:34: POC Whole Blood Glucose 109H 11/10/20 04:00: White Blood Count 12.6H, Red Blood Count 2.77L, Hemoglobin 8.4L, Hematocrit 24.7L, Mean Corpuscular Volume 89, Mean Corpuscular Hemoglobin 30.5, Mean Corpuscular Hemoglobin Concent 34.2, Red Cell Distribution Width 12.0, Platelet Count 236, Mean Platelet Volume 6.8, Neutrophils (%) (Auto) , Lymphocytes (%) (Auto) , Monocytes (%) (Auto) , Eosinophils (%) (Auto) , Basophils (%) (Auto) , Sodium Level 138, Potassium Level 4.0, Chloride Level 102, Carbon Dioxide Level 31, Anion Gap 5, Blood Urea Nitrogen 56H, Creatinine 3.1H, Estimat Glomerular Filtration Rate 19.7, Glucose Level 137#H, Calcium Level 7.6L, Phosphorus Level 4.3, Magnesium Level 1.9, Total Bilirubin 0.5, Aspartate Amino Transf (AST/SGOT) 30, Alanine Aminotransferase (ALT/SGPT) 54, Alkaline Phosphatase 66, C-Reactive Protein, Quantitative 2.4H, Pro-B-Type Natriuretic Peptide 652H, Total Protein 4.5L, Albumin 1.6L, Globulin 2.9, Albumin/Globulin Ratio 0.6L 11/10/20 06:14: POC Whole Blood Glucose [Pending] 11/10/20 12:08: POC Whole Blood Glucose [Pending] Height (Feet): 5 Height (Inches): 5.00 Weight (Pounds): 150 General Appearance: no apparent distress, lethargic, confused Cardiovascular: normal rate Respiratory/Chest: decreased breath sounds Abdomen: distended Garth Buckley MD Nov 10, 2020 13:11
--- NOTE | 2020-11-10 13:45 | NUR ---
RD ASSESSMENT & RECOMMENDATIONS SEE CARE ACTIVITY FOR COMPLETE ASSESSMENT DAILY ESTIMATED NEEDS: Needs based on DM, pulmonary 68.4kg 25-30 kcals/kg total kcals 1-1.5 g protein/kg 68-102 g total protein 25-30 mL/kg total fluid mLs NUTRITION DIAGNOSIS: Altered nutrition related lab values r/t DKA as evidenced by Uglu 4+ on adm, small acetone detected, BG 1087 upon adm-> now improved, A1C 8.1. CURRENT DIET: Renal + Ensure TID PO DIET RECOMMENDATIONS: With poor po rec LOW NA/ CCHO MED diet (texture as tolerated) ADDITIONAL RECOMMENDATIONS: 1) Recommend supplement w/ continued poor intake ----> Nepro TID 2) Monitor BG w/ poor PO, pt at risk for hypoglycemia w/ insulin regimen 3) Maintain calibrated bed scale wts 4) Monitor lytes- K, phos, mag wnl 5) Nephrovite x 1
[2020-11-10 16:00] VITALS: BP 128/66
--- NOTE | 2020-11-10 18:22 | NUR ---
NURSE HAND-OFF REPORT: Important Events on Shift:n/a Patient Status: asleep and arousable Diet: regular Pending Orders: n/a Pending Results/Labs:n/a Pending notification:n/a Latest Vital Signs: Temperature 98.1 , Pulse 105 , B/P 128 /66 , Respiratory Rate 19 , O2 SAT 96 , Nasal Cannula, O2 Flow Rate 2.0 . Vital Sign Comment: EKG Rhythm: Sinus Tachycardia Rhythm change?: N Notified?: Amari MCQUEEN MD Response: Message left await call Latest Bhat Fall Score: 60 Fall Risk: High Risk Safety Measures: Call light Within Reach, Bed Alarm Zone 1, Side Rails Side Rails x3, Bed position Low and Locked. Fall Precautions: Yellow Socks Report given to . Addendum: 11/10/20 at 1908 by Josh Orellana RN HAND-OFF: Report given to Damion Ball.
--- NOTE | 2020-11-10 19:30 | NUR ---
NURSE NOTES: Patient received from ARPITA Moreno. Patient appears to be confused and is attempting to get out of his restraints. Patient is on 2 L Nasal cannula with no signs of acute respiratory distress noted. Patient has a right 22 gauge on his AC, patent and flushed. Bed is in the lowest position and locked, call light within reach. Will continue to monitor.
[2020-11-10] MEDS: Dyna-Hex 2% Top Sol 2oz TOPIC SCH (19:31)
[2020-11-10 20:00] VITALS: BP 114/62
--- NOTE | 2020-11-10 20:49 | General Progress Note ---
Subjective ROS Limited/Unobtainable: Yes Allergies: Coded Allergies: No Known Allergies (Unverified , 10/31/20) Objective Last 24 Hour Vital Signs Date Time Temp Pulse Resp B/P (MAP) Pulse Ox O2 Delivery O2 Flow Rate FiO2 11/10/20 17:36 105 128/66 11/10/20 16:00 98.1 61 19 128/66 (86) 96 11/10/20 16:00 105 11/10/20 12:00 97.8 59 20 126/57 (80) 95 11/10/20 12:00 98 11/10/20 10:58 97 Nasal Cannula 2.0 28 11/10/20 09:00 Nasal Cannula 2.0 11/10/20 08:55 82 123/59 11/10/20 08:54 82 123/59 11/10/20 08:00 98.0 82 19 123/59 (80) 95 11/10/20 08:00 72 11/10/20 04:00 67 11/10/20 04:00 98.1 71 16 113/50 (71) 98 11/10/20 00:00 75 11/10/20 00:00 99.3 83 20 127/59 (81) 95 11/09/20 21:00 Nasal Cannula 2.0 Intake and Output 11/09/20 11/10/20 19:00 07:00 Intake Total 250 ml Output Total 350 ml Balance -100 ml Intake Oral 250 ml Output Urine Total 350 ml # Voids 3 # Bowel Movements 4 3 Laboratory Tests 11/10/20 04:00: White Blood Count 12.6H, Red Blood Count 2.77L, Hemoglobin 8.4L, Hematocrit 24.7L, Mean Corpuscular Volume 89, Mean Corpuscular Hemoglobin 30.5, Mean Corpuscular Hemoglobin Concent 34.2, Red Cell Distribution Width 12.0, Platelet Count 236, Mean Platelet Volume 6.8, Neutrophils (%) (Auto) , Lymphocytes (%) (Auto) , Monocytes (%) (Auto) , Eosinophils (%) (Auto) , Basophils (%) (Auto) , Sodium Level 138, Potassium Level 4.0, Chloride Level 102, Carbon Dioxide Level 31, Anion Gap 5, Blood Urea Nitrogen 56H, Creatinine 3.1H, Estimat Glomerular Filtration Rate 19.7, Glucose Level 137#H, Calcium Level 7.6L, Phosphorus Level 4.3, Magnesium Level 1.9, Total Bilirubin 0.5, Aspartate Amino Transf (AST/SGOT) 30, Alanine Aminotransferase (ALT/SGPT) 54, Alkaline Phosphatase 66, C-Reactive Protein, Quantitative 2.4H, Pro-B-Type Natriuretic Peptide 652H, Total Protein 4.5L, Albumin 1.6L, Globulin 2.9, Albumin/Globulin Ratio 0.6L 11/10/20 06:14: POC Whole Blood Glucose [Pending] 11/10/20 12:08: POC Whole Blood Glucose [Pending] 11/10/20 16:54: POC Whole Blood Glucose 148H Height (Feet): 5 Height (Inches): 5.00 Weight (Pounds): 150 Assessment/Plan Problem List: (1) Renal failure (ARF), acute on chronic ICD Codes: N17.9 - Acute kidney failure, unspecified; N18.9 - Chronic kidney disease, unspecified SNOMED: 679328173 (2) DKA (diabetic ketoacidoses) ICD Codes: E11.10 - Type 2 diabetes mellitus with ketoacidosis without coma SNOMED: 138459058, 17260864 (3) COVID-19 virus infection ICD Codes: U07.1 - COVID-19 SNOMED: 673639648 (4) Rhabdomyolysis ICD Codes: M62.82 - Rhabdomyolysis SNOMED: 083014824 (5) Diabetes mellitus out of control ICD Codes: E11.65 - Type 2 diabetes mellitus with hyperglycemia SNOMED: 91703104, 869009990 (6) Abnormal thyroid blood test ICD Codes: R79.89 - Other specified abnormal findings of blood chemistry SNOMED: 330389401, 537501008476380 (7) NSTEMI (non-ST elevated myocardial infarction) ICD Codes: I21.4 - Non-ST elevation (NSTEMI) myocardial infarction SNOMED: 53142082 Status: progressing, unchanged Assessment/Plan: covid + dka resolved afebrile agitation at times obs esrd hd niddm Corey Soto MD Nov 10, 2020 20:49
[2020-11-11] VITALS: BP 110/56
[2020-11-11 04:00] VITALS: BP 128/63
[2020-11-11] MEDS: sitaGLIPtin 25mg tab ORAL SCH (06:09)
[2020-11-11] MEDS: NovoLOG Insulin Flexpen SUBQ SCH ×7 (06:12→20:17)
--- NOTE | 2020-11-11 06:34 | General Progress Note ---
Subjective ROS Limited/Unobtainable: Yes Allergies: Coded Allergies: No Known Allergies (Unverified , 10/31/20) Subjective events noted interval notes reviewed glucose values on higher side but improved Item Value Date Time Bedside Blood Glucose 228 mg/dl H 11/11/20 0630 Bedside Blood Glucose 282 mg/dl H 11/10/20 2135 Bedside Blood Glucose 148 mg/dl H 11/10/20 1738 Bedside Blood Glucose 273 mg/dl H 11/10/20 1216 Bedside Blood Glucose 149 mg/dl H 11/10/20 0903 Bedside Blood Glucose 149 mg/dl H 11/10/20 0630 Objective Last 24 Hour Vital Signs Date Time Temp Pulse Resp B/P (MAP) Pulse Ox O2 Delivery O2 Flow Rate FiO2 11/11/20 04:00 98.4 72 20 128/63 (84) 93 11/11/20 04:00 64 11/11/20 00:00 99.5 70 20 110/56 (74) 94 11/11/20 00:00 69 11/10/20 21:34 102 114/62 11/10/20 21:00 Nasal Cannula 2.0 11/10/20 20:14 98 Nasal Cannula 2.0 28 11/10/20 20:00 97.7 102 20 114/62 (79) 98 11/10/20 20:00 100 11/10/20 17:36 105 128/66 11/10/20 16:00 98.1 61 19 128/66 (86) 96 11/10/20 16:00 105 11/10/20 12:00 97.8 59 20 126/57 (80) 95 11/10/20 12:00 98 11/10/20 10:58 97 Nasal Cannula 2.0 28 11/10/20 09:00 Nasal Cannula 2.0 11/10/20 08:55 82 123/59 11/10/20 08:54 82 123/59 11/10/20 08:00 98.0 82 19 123/59 (80) 95 11/10/20 08:00 72 Intake and Output 11/10/20 11/11/20 19:00 07:00 Intake Total 1200 ml Output Total 1200 ml Balance 0 ml Intake Oral 1200 ml Output Urine Total 1200 ml # Voids 3 3 # Bowel Movements 3 3 Laboratory Tests 11/10/20 12:08: POC Whole Blood Glucose [Pending] 11/10/20 16:54: POC Whole Blood Glucose 148H 11/10/20 21:25: POC Whole Blood Glucose 282H 11/11/20 06:09: POC Whole Blood Glucose [Pending] Height (Feet): 5 Height (Inches): 5.00 Weight (Pounds): 150 Objective Current Medications Medications (Trade) Dose Ordered Sig/Manasa Route PRN Reason Start Time Stop Time Status Last Admin Dose Admin Acetaminophen (Tylenol) 500 mg Q4H PRN ORAL For Pain 11/01/20 01:00 12/01/20 00:59 11/01/20 18:50 Acetaminophen (Tylenol) 650 mg Q4H PRN RECTAL Temp >100.5 11/01/20 21:30 12/01/20 21:29 Allopurinol (Zyloprim) 200 mg DAILY ORAL 11/01/20 16:00 12/01/20 15:59 11/09/20 08:58 Amiodarone HCl (Cordarone) 200 mg DAILY ORAL 11/10/20 09:00 02/08/21 08:59 11/10/20 08:55 Chlorhexidine Gluconate (María Elena-Hex 2%) 1 applic DAILY@2000 TOPIC 11/04/20 20:00 02/02/21 19:59 11/08/20 20:34 Clonidine HCl (Catapres Tab) 0.1 mg Q4H PRN ORAL bp over 160 syst 10/31/20 17:45 01/29/21 17:44 11/01/20 09:20 Dexamethasone Sodium Phosphate (Decadron 10mg/ ml Inj) 6 mg DAILY IV 11/03/20 09:00 11/13/20 08:59 11/10/20 08:55 Dextrose (Dextrose 50%) 25 ml Q30M PRN IV Hypoglycemia 11/01/20 07:15 01/30/21 07:14 Dextrose (Dextrose 50%) 50 ml Q30M PRN IV Hypoglycemia 11/01/20 07:15 01/30/21 07:14 Diltiazem HCl (Cardizem Tab) 90 mg BID ORAL 11/07/20 10:15 12/02/20 17:59 11/10/20 17:36 Docusate Sodium (Colace) 100 mg TWICE A DAY ORAL 10/31/20 18:00 11/30/20 17:59 11/10/20 17:36 Haloperidol Lactate (Haldol) 5 mg Q6H PRN IM Agitation 11/06/20 21:30 12/21/20 21:29 11/09/20 02:40 Insulin Aspart (NovoLOG) BEFORE MEALS AND HS SUBQ 11/01/20 11:30 01/30/21 11:29 11/11/20 06:12 Insulin Aspart (NovoLOG) 10 units NOVOTIAC SUBQ 11/10/20 06:30 01/30/21 11:49 11/11/20 06:12 Insulin Detemir (Levemir) 15 units BID SUBQ 11/10/20 09:00 01/30/21 08:59 11/10/20 17:38 Methimazole (Tapazole) 10 mg DAILY ORAL 11/03/20 09:00 12/03/20 08:59 11/10/20 08:54 Metoprolol Tartrate (Lopressor) 50 mg Q12HR ORAL 11/01/20 21:00 01/30/21 20:59 11/10/20 21:34 Ondansetron HCl (Zofran) 4 mg Q6H PRN IVP Nausea & Vomiting 11/07/20 16:30 12/07/20 16:29 11/07/20 17:28 Pantoprazole (Protonix) 40 mg BID ORAL 10/31/20 18:00 11/30/20 17:44 11/10/20 17:36 Sitagliptin Phosphate (Januvia) 25 mg ACBREAKFAST ORAL 11/06/20 06:30 12/06/20 06:29 11/11/20 06:09 Tamsulosin HCl (Flomax) 0.4 mg BID ORAL 11/03/20 12:00 12/03/20 11:59 11/10/20 17:36 Assessment/Plan Problem List: (1) Abnormal thyroid blood test ICD Codes: R79.89 - Other specified abnormal findings of blood chemistry SNOMED: 547466583, 602894312651188 (2) Diabetes mellitus out of control ICD Codes: E11.65 - Type 2 diabetes mellitus with hyperglycemia SNOMED: 07496307, 114266122 (3) Renal failure (ARF), acute on chronic ICD Codes: N17.9 - Acute kidney failure, unspecified; N18.9 - Chronic kidney disease, unspecified SNOMED: 264711184 (4) COVID-19 virus infection ICD Codes: U07.1 - COVID-19 SNOMED: 339060986 (5) DKA (diabetic ketoacidoses) ICD Codes: E11.10 - Type 2 diabetes mellitus with ketoacidosis without coma SNOMED: 065832327, 69905335 (6) NSTEMI (non-ST elevated myocardial infarction) ICD Codes: I21.4 - Non-ST elevation (NSTEMI) myocardial infarction SNOMED: 75998812 Status: progressing, unchanged Assessment/Plan: continueLevemir 15 units bid continue Novolog 10 units ac tid + SSI continue Januvia 25 mg daily continue Tapazole 10 mg daily TSI pending Markus Tamez MD Nov 11, 2020 06:34
--- NOTE | 2020-11-11 07:20 | NUR ---
CASE MANAGEMENT:REVIEW 11/11/20 SI: NSTEMI. COVID PNA. DKA. AFLUTTER W/RVR ACUTE ON CHRONIC RENAL FAILURE 99.5 72 20 128/63 93% ON 2L/NC LABS PENDING IS: CARDIZEM PO BID AMIODARONE PO QD NOVOLOG SQ TID AC JANUVIA PO QAM SS INSULIN AC+HS LEVEMIR SQ QD FLOMAX PO BID TAPAZOLE PO QD IV DECADRON QD LOPRESSOR PO Q12 PROTONIX PO BID : TELEMETRY STATUS DCP: FROM HOME PLAN: WEAN OXYGEN TOLERATED PATIENT PULLED OUT RT FEMORAL NON TUNNELED DIALYSIS CATHETER ~ NEW CATH TO BE INSERTED HEPATITIS PANEL PENDING WOULD LIKE TO SPEAK WITH DERICK ELLIS [employer] ABOUT THIS CASE
--- NOTE | 2020-11-11 07:25 | NUR ---
NURSE HAND-OFF REPORT: Important Events on Shift:[Patient attempts to get out of bed. Confused, tries to take restraints out. Non-tunneled central line catheter placement scheduled] Patient Status: [Stable] Diet: [] Pending Orders: [] Pending Results/Labs:[] Pending MD notification:[] Latest Vital Signs: Temperature 98.4 , Pulse 64 , B/P 128 /63 , Respiratory Rate 20 , O2 SAT 93 , Nasal Cannula, O2 Flow Rate 2.0 . Vital Sign Comment: [] EKG Rhythm: Sinus Rhythm Rhythm change?: N Notified?: Amari MCQUEEN MD Response: Message left await call Latest Bhat Fall Score: 60 Fall Risk: High Risk Safety Measures: Call light Within Reach, Bed Alarm Zone 1, Side Rails Side Rails x3, Bed position Low and Locked. Fall Precautions: Yellow Socks Report given to [ARPITA Ruiz].
--- NOTE | 2020-11-11 07:33 | NUR ---
NURSE NOTES: Pt received from Chaitanya RN. Pt in bed sleeping. Bilateral soft wrist restraints in place. Pulses present and palpable. No redness or swelling noted. Bed low and locked, call light within reach. no distress or sob noted.
[2020-11-11 08:00] VITALS: BP 132/59
[2020-11-11] MEDS: Levemir Flexpen SUBQ SCH ×2 (09:00→17:20)
[2020-11-11] MEDS ORDERED: Lidocaine 1% Plain 30 ml INJ PRN (09:00)
[2020-11-11] MEDS ORDERED: Heparin1,000 units/500ml Premix(Conc:2 units/ml) IV PRN (09:00)
[2020-11-11 09:23] LABS: HEMATOCRIT 25.8 % (42.0-52.0); HEMOGLOBIN 8.7 G/DL (14.2-18.0); MEAN CORPUSCULAR VOLUME 90 FL (80-99); PLATELET COUNT 231 K/UL (150-450); RED BLOOD COUNT 2.86 M/UL (4.70-6.10); RED CELL DISTRIBUTION WIDTH 12.6 % (11.6-14.8); WHITE BLOOD COUNT 10.1 K/UL (4.8-10.8)
--- NOTE | 2020-11-11 09:28 | Pulmonology Progress Note ---
Subjective ROS Limited/Unobtainable: Yes Interval Events: none major reported per nursing Constitutional: Denies: fever Gastrointestinal/Abdominal: Reports: diarrhea - C. diff negative Allergies: Coded Allergies: No Known Allergies (Unverified , 10/31/20) Objective Last 24 Hour Vital Signs Date Time Temp Pulse Resp B/P (MAP) Pulse Ox O2 Delivery O2 Flow Rate FiO2 11/11/20 08:00 98.1 71 20 132/59 (83) 90 11/11/20 08:00 68 11/11/20 04:00 98.4 72 20 128/63 (84) 93 11/11/20 04:00 64 11/11/20 00:00 99.5 70 20 110/56 (74) 94 11/11/20 00:00 69 11/10/20 21:34 102 114/62 11/10/20 21:00 Nasal Cannula 2.0 11/10/20 20:14 98 Nasal Cannula 2.0 28 11/10/20 20:00 97.7 102 20 114/62 (79) 98 11/10/20 20:00 100 11/10/20 17:36 105 128/66 11/10/20 16:00 98.1 61 19 128/66 (86) 96 11/10/20 16:00 105 11/10/20 12:00 97.8 59 20 126/57 (80) 95 11/10/20 12:00 98 11/10/20 10:58 97 Nasal Cannula 2.0 28 Intake and Output 11/10/20 11/11/20 19:00 07:00 Intake Total 1200 ml Output Total 1200 ml Balance 0 ml Intake Oral 1200 ml Output Urine Total 1200 ml # Voids 3 3 # Bowel Movements 3 3 Objective now saturating at 95% on 2L NC General Appearance: WD/WN, no acute distress HEENT: atraumatic Respiratory: chest wall non-tender Cardiovascular: regular rhythm, tachycardia Abdomen: soft, non tender Laboratory Tests 11/10/20 12:08: POC Whole Blood Glucose [Pending] 11/10/20 16:54: POC Whole Blood Glucose 148H 11/10/20 21:25: POC Whole Blood Glucose 282H 11/11/20 06:09: POC Whole Blood Glucose [Pending] 11/11/20 09:00: White Blood Count 10.1, Red Blood Count 2.86L, Hemoglobin 8.7L, Hematocrit 25.8L , Mean Corpuscular Volume 90, Mean Corpuscular Hemoglobin 30.3, Mean Corpuscular Hemoglobin Concent 33.6, Red Cell Distribution Width 12.6, Platelet Count 231, Mean Platelet Volume 6.6, Neutrophils (%) (Auto) , Lymphocytes (%) (Auto) , Monocytes (%) (Auto) , Eosinophils (%) (Auto) , Basophils (%) (Auto) , Neutrophils % (Manual) [Pending], Lymphocytes % (Manual) [Pending], Platelet Estimate [Pending], Platelet Morphology [Pending], Sodium Level [Pending], Potassium Level [Pending], Chloride Level [Pending], Carbon Dioxide Level [Pending], Blood Urea Nitrogen [Pending], Creatinine [Pending], Estimat Glomerular Filtration Rate [Pending], Glucose Level [Pending], Calcium Level [Pending], Phosphorus Level [Pending], Magnesium Level [Pending], Total Bilirubin [Pending], Aspartate Amino Transf (AST/SGOT) [Pending], Alanine Aminotransferase (ALT/SGPT) [Pending], Alkaline Phosphatase [Pending], C- Reactive Protein, Quantitative [Pending], Pro-B-Type Natriuretic Peptide [Pending], Total Protein [Pending], Albumin [Pending], Globulin [Pending] Current Medications Medications (Trade) Dose Ordered Sig/Manasa Route PRN Reason Start Time Stop Time Status Last Admin Dose Admin Acetaminophen (Tylenol) 500 mg Q4H PRN ORAL For Pain 11/01/20 01:00 12/01/20 00:59 11/01/20 18:50 Acetaminophen (Tylenol) 650 mg Q4H PRN RECTAL Temp >100.5 11/01/20 21:30 12/01/20 21:29 Allopurinol (Zyloprim) 200 mg DAILY ORAL 11/01/20 16:00 12/01/20 15:59 11/09/20 08:58 Amiodarone HCl (Cordarone) 200 mg DAILY ORAL 11/10/20 09:00 02/08/21 08:59 11/10/20 08:55 Chlorhexidine Gluconate (María Elena-Hex 2%) 1 applic DAILY@1999 TOPIC 11/04/20 20:00 02/02/21 19:59 11/08/20 20:34 Clonidine HCl (Catapres Tab) 0.1 mg Q4H PRN ORAL bp over 160 syst 10/31/20 17:45 01/29/21 17:44 11/01/20 09:20 Dexamethasone Sodium Phosphate (Decadron 10mg/ ml Inj) 6 mg DAILY IV 11/03/20 09:00 11/13/20 08:59 11/10/20 08:55 Dextrose (Dextrose 50%) 25 ml Q30M PRN IV Hypoglycemia 11/01/20 07:15 01/30/21 07:14 Dextrose (Dextrose 50%) 50 ml Q30M PRN IV Hypoglycemia 11/01/20 07:15 01/30/21 07:14 Diltiazem HCl (Cardizem Tab) 90 mg BID ORAL 11/07/20 10:15 12/02/20 17:59 11/10/20 17:36 Docusate Sodium (Colace) 100 mg TWICE A DAY ORAL 10/31/20 18:00 11/30/20 17:59 11/10/20 17:36 Haloperidol Lactate (Haldol) 5 mg Q6H PRN IM Agitation 11/06/20 21:30 12/21/20 21:29 11/09/20 02:40 Heparin Sodium/ Sodium Chloride (Heparin 1000 units/500ml Premix) 1,000 unit ONCE PRN IV radiology procedure 11/11/20 09:00 11/13/20 08:59 Insulin Aspart (NovoLOG) BEFORE MEALS AND HS SUBQ 11/01/20 11:30 01/30/21 11:29 11/11/20 06:12 Insulin Aspart (NovoLOG) 10 units NOVOTIAC SUBQ 11/10/20 06:30 01/30/21 11:49 11/11/20 06:12 Insulin Detemir (Levemir) 15 units BID SUBQ 11/10/20 09:00 01/30/21 08:59 11/10/20 17:38 Lidocaine HCl (Xylocaine 1% 30ml) 30 ml ONCE PRN INJ radiology procedure 11/11/20 09:00 11/13/20 08:59 Methimazole (Tapazole) 10 mg DAILY ORAL 11/03/20 09:00 12/03/20 08:59 11/10/20 08:54 Metoprolol Tartrate (Lopressor) 50 mg Q12HR ORAL 11/01/20 21:00 01/30/21 20:59 11/10/20 21:34 Ondansetron HCl (Zofran) 4 mg Q6H PRN IVP Nausea & Vomiting 11/07/20 16:30 12/07/20 16:29 11/07/20 17:28 Pantoprazole (Protonix) 40 mg BID ORAL 10/31/20 18:00 11/30/20 17:44 11/10/20 17:36 Sitagliptin Phosphate (Januvia) 25 mg ACBREAKFAST ORAL 11/06/20 06:30 12/06/20 06:29 11/11/20 06:09 Tamsulosin HCl (Flomax) 0.4 mg BID ORAL 11/03/20 12:00 12/03/20 11:59 11/10/20 17:36 Assessment/Plan Assessment/Plan 1. Non-ST elevation myocardial infarction. - cardiology following 2. Diabetic ketoacidosis - seen by endocrinology - continue fluids - on insulin 3. Atrial flutter with rapid ventricular response. - Continue metoprolol 50 mg b.i.d. 4. COVID positive pneumonia. - on Decadron (11/03-) - Supplemental O2 - saturating at 95% on 2L NC; wean down as tolerated - CXR 11/04 developing b/l infilitrates 5. Renal failure with creatinine of 3.5. - nephrology following - pt pulled out femoral HD cath, new cath being considered 6. Accelerated hypertension. 7. Hyperthyroidism - Dr. Tamez following 8. Diarrhea - C. diff negative DVT ppx - Lovenox The care for this patient was discussed with my supervising physician Time spent for this case was approximately 31 minutes Singh Buchanan Nov 11, 2020 09:28
[2020-11-11 09:51] LABS: ALBUMIN 1.7 G/DL (3.4-5.0); ALBUMIN/GLOBULIN RATIO 0.5 (1.0-2.7); BILIRUBIN,TOTAL 0.3 MG/DL (0.2-1.0); CALCIUM 8.4 MG/DL (8.5-10.1); CREATININE 3.3 MG/DL (0.55-1.30)
--- NOTE | 2020-11-11 10:15 | NUR ---
NURSE NOTES: Please note, did not admin metoprolol or cardizem due to pt BP at 105/50. Contacted Dr. Escalante to ask for parameters. Re taking two amiodarone out of Pyxis, the first one fell on the floor.
[2020-11-11 10:32] LABS: PHOSPHORUS 3.7 MG/DL (2.5-4.9)
[2020-11-11] MEDS: Amiodarone 200mg tab ORAL SCH (10:53)
[2020-11-11] MEDS: methIMAzole 10mg tab ORAL SCH (10:53)
[2020-11-11] MEDS: dexAMETHasone 10mg/ml Inj IV SCH (10:54)
[2020-11-11] MEDS: Allopurinol 100mg Tab ORAL SCH (10:54)
[2020-11-11] MEDS: dilTIAZem HCl 90mg tab ORAL SCH ×3 (10:55→17:19)
[2020-11-11] MEDS: Metoprolol Tartrate 50mg tab ORAL SCH ×3 (10:55→20:16)
[2020-11-11] MEDS: Tamsulosin 0.4mg cap ORAL SCH ×2 (10:55→17:20)
[2020-11-11] MEDS: Docusate 100mg cap ORAL SCH ×2 (11:41→17:19)
--- NOTE | 2020-11-11 11:45 | Infectious Diseases Prog Note ---
Assessment/Plan Assessment/Plan A; COVID19 pneumonia Hypoxemia Acute renal failure improving Rhabdomyolysis Diarrhea, C. difficile negative DKA Hyperthyroidism Anemia Leukocytosis improving P; Continue Dexamethasone Subjective ROS Limited/Unobtainable: Yes Constitutional: Denies: fever Neurologic: Reports: other - on restraint Allergies: Coded Allergies: No Known Allergies (Unverified , 10/31/20) Objective Last 24 Hour Vital Signs Date Time Temp Pulse Resp B/P (MAP) Pulse Ox O2 Delivery O2 Flow Rate FiO2 11/11/20 10:55 68 132/59 11/11/20 10:55 68 132/59 11/11/20 09:00 Nasal Cannula 2.0 11/11/20 08:00 98.1 71 20 132/59 (83) 90 11/11/20 08:00 68 11/11/20 04:00 98.4 72 20 128/63 (84) 93 11/11/20 04:00 64 11/11/20 00:00 99.5 70 20 110/56 (74) 94 11/11/20 00:00 69 11/10/20 21:34 102 114/62 11/10/20 21:00 Nasal Cannula 2.0 11/10/20 20:14 98 Nasal Cannula 2.0 28 11/10/20 20:00 97.7 102 20 114/62 (79) 98 11/10/20 20:00 100 11/10/20 17:36 105 128/66 11/10/20 16:00 98.1 61 19 128/66 (86) 96 11/10/20 16:00 105 11/10/20 12:00 97.8 59 20 126/57 (80) 95 11/10/20 12:00 98 Height (Feet): 5 Height (Inches): 5.00 Weight (Pounds): 150 HEENT: mucous membranes moist Respiratory/Chest: no respiratory distress Cardiovascular: normal rate Abdomen: soft, non tender Extremities: no edema Neurologic/Psychiatric: alert, responsive Laboratory Tests Test 11/10/20 12:08 11/10/20 16:54 11/10/20 21:25 11/11/20 06:09 POC Whole Blood Glucose Pending 148 MG/DL (74-106) H 282 MG/DL (74-106) H Pending Test 11/11/20 09:00 White Blood Count 10.1 K/UL (4.8-10.8) Red Blood Count 2.86 M/UL (4.70-6.10) L Hemoglobin 8.7 G/DL (14.2-18.0) L Hematocrit 25.8 % (42.0-52.0) L Mean Corpuscular Volume 90 FL (80-99) Mean Corpuscular Hemoglobin 30.3 PG (27.0-31.0) Mean Corpuscular Hemoglobin Concent 33.6 G/DL (32.0-36.0) Red Cell Distribution Width 12.6 % (11.6-14.8) Platelet Count 231 K/UL (150-450) Mean Platelet Volume 6.6 FL (6.5-10.1) Neutrophils (%) (Auto) % (45.0-75.0) Lymphocytes (%) (Auto) % (20.0-45.0) Monocytes (%) (Auto) % (1.0-10.0) Eosinophils (%) (Auto) % (0.0-3.0) Basophils (%) (Auto) % (0.0-2.0) Differential Total Cells Counted 100 Neutrophils % (Manual) 89 % (45-75) H Lymphocytes % (Manual) 5 % (20-45) L Monocytes % (Manual) 5 % (1-10) Eosinophils % (Manual) 1 % (0-3) Basophils % (Manual) 0 % (0-2) Band Neutrophils 0 % (0-8) Platelet Estimate Adequate Platelet Morphology Normal Hypochromasia 1+ Sodium Level 142 MMOL/L (136-145) Potassium Level 4.0 MMOL/L (3.5-5.1) Chloride Level 105 MMOL/L (98-107) Carbon Dioxide Level 33 MMOL/L (21-32) H Anion Gap 5 mmol/L (5-15) Blood Urea Nitrogen 55 mg/dL (7-18) H Creatinine 3.3 MG/DL (0.55-1.30) H Estimat Glomerular Filtration Rate 18.3 mL/min (>60) Glucose Level 106 MG/DL (74-106) Calcium Level 8.4 MG/DL (8.5-10.1) L Phosphorus Level 3.7 MG/DL (2.5-4.9) Magnesium Level 2.1 MG/DL (1.8-2.4) Total Bilirubin 0.3 MG/DL (0.2-1.0) Aspartate Amino Transf (AST/SGOT) 27 U/L (15-37) Alanine Aminotransferase (ALT/SGPT) 44 U/L (12-78) Alkaline Phosphatase 70 U/L (46-116) C-Reactive Protein, Quantitative 4.3 mg/dL (0.00-0.90) H Pro-B-Type Natriuretic Peptide 1040 pg/mL (0-125) H Total Protein 5.0 G/DL (6.4-8.2) L Albumin 1.7 G/DL (3.4-5.0) L Globulin 3.3 g/dL Albumin/Globulin Ratio 0.5 (1.0-2.7) L Current Medications Medications (Trade) Dose Ordered Sig/Manasa Route PRN Reason Start Time Stop Time Status Last Admin Dose Admin Acetaminophen (Tylenol) 500 mg Q4H PRN ORAL For Pain 11/01/20 01:00 12/01/20 00:59 11/01/20 18:50 Acetaminophen (Tylenol) 650 mg Q4H PRN RECTAL Temp >100.5 11/01/20 21:30 12/01/20 21:29 Allopurinol (Zyloprim) 200 mg DAILY ORAL 11/01/20 16:00 12/01/20 15:59 11/11/20 10:54 Amiodarone HCl (Cordarone) 200 mg DAILY ORAL 11/10/20 09:00 02/08/21 08:59 11/11/20 10:53 Chlorhexidine Gluconate (María Elena-Hex 2%) 1 applic DAILY@1999 TOPIC 11/04/20 20:00 02/02/21 19:59 11/08/20 20:34 Clonidine HCl (Catapres Tab) 0.1 mg Q4H PRN ORAL bp over 160 syst 10/31/20 17:45 01/29/21 17:44 11/01/20 09:20 Dexamethasone Sodium Phosphate (Decadron 10mg/ ml Inj) 6 mg DAILY IV 11/03/20 09:00 11/13/20 08:59 11/11/20 10:54 Dextrose (Dextrose 50%) 25 ml Q30M PRN IV Hypoglycemia 11/01/20 07:15 01/30/21 07:14 Dextrose (Dextrose 50%) 50 ml Q30M PRN IV Hypoglycemia 11/01/20 07:15 01/30/21 07:14 Diltiazem HCl (Cardizem Tab) 90 mg BID ORAL 11/07/20 10:15 12/02/20 17:59 11/11/20 10:55 Docusate Sodium (Colace) 100 mg TWICE A DAY ORAL 10/31/20 18:00 11/30/20 17:59 11/11/20 11:41 Haloperidol Lactate (Haldol) 5 mg Q6H PRN IM Agitation 11/06/20 21:30 12/21/20 21:29 11/09/20 02:40 Heparin Sodium/ Sodium Chloride (Heparin 1000 units/500ml Premix) 1,000 unit ONCE PRN IV radiology procedure 11/11/20 09:00 11/13/20 08:59 Insulin Aspart (NovoLOG) BEFORE MEALS AND HS SUBQ 11/01/20 11:30 01/30/21 11:29 11/11/20 06:12 Insulin Aspart (NovoLOG) 10 units NOVOTIAC SUBQ 11/10/20 06:30 01/30/21 11:49 11/11/20 06:12 Insulin Detemir (Levemir) 15 units BID SUBQ 11/10/20 09:00 01/30/21 08:59 11/10/20 17:38 Lidocaine HCl (Xylocaine 1% 30ml) 30 ml ONCE PRN INJ radiology procedure 11/11/20 09:00 11/13/20 08:59 Methimazole (Tapazole) 10 mg DAILY ORAL 11/03/20 09:00 12/03/20 08:59 11/11/20 10:53 Metoprolol Tartrate (Lopressor) 50 mg Q12HR ORAL 11/01/20 21:00 01/30/21 20:59 11/11/20 10:55 Ondansetron HCl (Zofran) 4 mg Q6H PRN IVP Nausea & Vomiting 11/07/20 16:30 12/07/20 16:29 11/07/20 17:28 Pantoprazole (Protonix) 40 mg BID ORAL 10/31/20 18:00 11/30/20 17:44 11/11/20 11:41 Sitagliptin Phosphate (Januvia) 25 mg ACBREAKFAST ORAL 11/06/20 06:30 12/06/20 06:29 11/11/20 06:09 Tamsulosin HCl (Flomax) 0.4 mg BID ORAL 11/03/20 12:00 12/03/20 11:59 11/11/20 10:55 Reji Connelly MD Nov 11, 2020 11:45
[2020-11-11 12:00] VITALS: BP 105/50
--- NOTE | 2020-11-11 12:29 | Nephrology Progress Note ---
Assessment/Plan Problem List: (1) Renal failure (ARF), acute on chronic (2) DKA (diabetic ketoacidoses) (3) COVID-19 virus infection (4) Rhabdomyolysis (5) Abnormal thyroid blood test (6) NSTEMI (non-ST elevated myocardial infarction) Assessment 75-year-old Pashto male Covid positive Acute renal failure, most likely superimposed on chronic kidney disease Diabetes mellitus, presents with severe hyperglycemia and DKA History of hypertension Plan November 11: Labs reviewed. Serum creatinine higher. Due for placement of a Nontunneled catheter today. We will schedule dialysis as needed. Patient's leukocytosis gradually improving. November 10: Lab reviewed. Serum creatinine rising. We will proceed with placement of a nontunneled catheter tomorrow and dialysis. Patient has leukocytosis at this time. Continue per consultants. November 09: Labs reviewed. Patient was dialyzed yesterday. Patient pulled out the dialysis catheter last night. Renal parameters stable. Continue to monitor and if dialysis needed to place a new temporary catheter. Per orders. November 08: Labs reviewed. Serum creatinine is plateauing. Due for dialysis today. We will continue to monitor renal parameters and dialysis as needed. November 07: Labs reviewed. Serum creatinine rising. IV fluid discontinued. Dialysis for tomorrow. Continue per consultants. November 06: Labs reviewed. Blood pressure stable. Medication list reviewed. Dialysis as needed. November 05: Due for dialysis today. Labs are reviewed. Blood pressure is stable. Continue to monitor renal parameters. November 04: Patient was dialyzed yesterday. 1 L ultrafiltrated. Labs reviewed. Renal parameters stable. Will attempt dialysis again tomorrow. Medication list reviewed. November 03: Labs reviewed. Serum creatinine rising. Patient has hematuria. Patient on Eliquis. Will arrange for placement of dialysis catheter and attempt to dialyze. Will start Flomax since the patient could not have a Anand catheter. Continue to monitor renal parameters. Continue per consultants. Discussed with RN. Consent for placement of nontunneled catheter ordered. Patient is also on Tapazole for high thyroid hormone. CPK is lowering. November 02: Labs reviewed. Serum creatinine up to 4. In S DU now. On Cardizem drip. Measured creatinine clearance . Patient may lead towards dialysis. Continue to monitor renal parameters. November 01: Renal parameters improving. Blood sugar is improving. Continue to monitor electrolytes renal parameters and urine output. Aim to control blood sugar and blood pressure. Avoid nephrotoxic's. Monitor CPK as it is elevated. Previously: Anand catheter Blood sugar control Slow hydration Monitor renal parameters Kidney ultrasound no hydronephrosis 2D echocardiogram ejection fraction 60 to 65%. Per orders Subjective ROS Limited/Unobtainable: Yes Objective Objective Last 24 Hour Vital Signs Date Time Temp Pulse Resp B/P (MAP) Pulse Ox O2 Delivery O2 Flow Rate FiO2 11/11/20 10:55 68 132/59 11/11/20 10:55 68 132/59 11/11/20 09:00 Nasal Cannula 2.0 11/11/20 08:00 98.1 71 20 132/59 (83) 90 11/11/20 08:00 68 11/11/20 04:00 98.4 72 20 128/63 (84) 93 11/11/20 04:00 64 11/11/20 00:00 99.5 70 20 110/56 (74) 94 11/11/20 00:00 69 11/10/20 21:34 102 114/62 11/10/20 21:00 Nasal Cannula 2.0 11/10/20 20:14 98 Nasal Cannula 2.0 28 11/10/20 20:00 97.7 102 20 114/62 (79) 98 11/10/20 20:00 100 11/10/20 17:36 105 128/66 11/10/20 16:00 98.1 61 19 128/66 (86) 96 11/10/20 16:00 105 Intake and Output 11/10/20 11/11/20 18:59 06:59 Intake Total 1200 ml Output Total 1200 ml Balance 0 ml Intake Oral 1200 ml Output Urine Total 1200 ml # Voids 3 3 # Bowel Movements 3 3 Current Medications Medications (Trade) Dose Ordered Sig/Manasa Route PRN Reason Start Time Stop Time Status Last Admin Dose Admin Acetaminophen (Tylenol) 500 mg Q4H PRN ORAL For Pain 11/01/20 01:00 12/01/20 00:59 11/01/20 18:50 Acetaminophen (Tylenol) 650 mg Q4H PRN RECTAL Temp >100.5 11/01/20 21:30 12/01/20 21:29 Allopurinol (Zyloprim) 200 mg DAILY ORAL 11/01/20 16:00 12/01/20 15:59 11/11/20 10:54 Amiodarone HCl (Cordarone) 200 mg DAILY ORAL 11/10/20 09:00 02/08/21 08:59 11/11/20 10:53 Chlorhexidine Gluconate (María Elena-Hex 2%) 1 applic DAILY@2000 TOPIC 11/04/20 20:00 02/02/21 19:59 11/08/20 20:34 Clonidine HCl (Catapres Tab) 0.1 mg Q4H PRN ORAL bp over 160 syst 10/31/20 17:45 01/29/21 17:44 11/01/20 09:20 Dexamethasone Sodium Phosphate (Decadron 10mg/ ml Inj) 6 mg DAILY IV 11/03/20 09:00 11/13/20 08:59 11/11/20 10:54 Dextrose (Dextrose 50%) 25 ml Q30M PRN IV Hypoglycemia 11/01/20 07:15 01/30/21 07:14 Dextrose (Dextrose 50%) 50 ml Q30M PRN IV Hypoglycemia 11/01/20 07:15 01/30/21 07:14 Diltiazem HCl (Cardizem Tab) 90 mg BID ORAL 11/07/20 10:15 12/02/20 17:59 11/11/20 10:55 Docusate Sodium (Colace) 100 mg TWICE A DAY ORAL 10/31/20 18:00 11/30/20 17:59 11/11/20 11:41 Haloperidol Lactate (Haldol) 5 mg Q6H PRN IM Agitation 11/06/20 21:30 12/21/20 21:29 11/09/20 02:40 Heparin Sodium/ Sodium Chloride (Heparin 1000 units/500ml Premix) 1,000 unit ONCE PRN IV radiology procedure 11/11/20 09:00 11/13/20 08:59 Insulin Aspart (NovoLOG) BEFORE MEALS AND HS SUBQ 11/01/20 11:30 01/30/21 11:29 11/11/20 06:12 Insulin Aspart (NovoLOG) 10 units NOVOTIAC SUBQ 11/10/20 06:30 01/30/21 11:49 11/11/20 06:12 Insulin Detemir (Levemir) 15 units BID SUBQ 11/10/20 09:00 01/30/21 08:59 11/10/20 17:38 Lidocaine HCl (Xylocaine 1% 30ml) 30 ml ONCE PRN INJ radiology procedure 11/11/20 09:00 11/13/20 08:59 Methimazole (Tapazole) 10 mg DAILY ORAL 11/03/20 09:00 12/03/20 08:59 11/11/20 10:53 Metoprolol Tartrate (Lopressor) 50 mg Q12HR ORAL 11/01/20 21:00 01/30/21 20:59 11/11/20 10:55 Ondansetron HCl (Zofran) 4 mg Q6H PRN IVP Nausea & Vomiting 11/07/20 16:30 12/07/20 16:29 11/07/20 17:28 Pantoprazole (Protonix) 40 mg BID ORAL 10/31/20 18:00 11/30/20 17:44 11/11/20 11:41 Sitagliptin Phosphate (Januvia) 25 mg ACBREAKFAST ORAL 11/06/20 06:30 12/06/20 06:29 11/11/20 06:09 Tamsulosin HCl (Flomax) 0.4 mg BID ORAL 11/03/20 12:00 12/03/20 11:59 11/11/20 10:55 Laboratory Tests 11/10/20 16:54: POC Whole Blood Glucose 148H 11/10/20 21:25: POC Whole Blood Glucose 282H 11/11/20 06:09: POC Whole Blood Glucose [Pending] 11/11/20 09:00: White Blood Count 10.1, Red Blood Count 2.86L, Hemoglobin 8.7L, Hematocrit 25.8L , Mean Corpuscular Volume 90, Mean Corpuscular Hemoglobin 30.3, Mean Corpuscular Hemoglobin Concent 33.6, Red Cell Distribution Width 12.6, Platelet Count 231, Mean Platelet Volume 6.6, Neutrophils (%) (Auto) , Lymphocytes (%) (Auto) , Monocytes (%) (Auto) , Eosinophils (%) (Auto) , Basophils (%) (Auto) , Differential Total Cells Counted 100, Neutrophils % (Manual) 89H, Lymphocytes % (Manual) 5L, Monocytes % (Manual) 5, Eosinophils % (Manual) 1, Basophils % (Manual) 0, Band Neutrophils 0, Platelet Estimate Adequate, Platelet Morphology Normal, Hypochromasia 1+, Sodium Level 142, Potassium Level 4.0, Chloride Level 105, Carbon Dioxide Level 33H, Anion Gap 5, Blood Urea Nitrogen 55H, Creatinine 3.3H, Estimat Glomerular Filtration Rate 18.3, Glucose Level 106, Calcium Level 8.4L, Phosphorus Level 3.7, Magnesium Level 2.1, Total Bilirubin 0.3, Aspartate Amino Transf (AST/SGOT) 27, Alanine Aminotransferase (ALT/SGPT) 44, Alkaline Phosphatase 70, C-Reactive Protein, Quantitative 4.3H, Pro-B-Type Natriuretic Peptide 1040H, Total Protein 5.0L, Albumin 1.7L, Globulin 3.3, Albumin/Globulin Ratio 0.5L Height (Feet): 5 Height (Inches): 5.00 Weight (Pounds): 150 General Appearance: no apparent distress Cardiovascular: normal rate Respiratory/Chest: decreased breath sounds Abdomen: distended Garth Buckley MD Nov 11, 2020 12:29
[2020-11-11] MEDS ORDERED: LORazepam Inj 2mg/ml 1ml IV SCH (14:00)
--- NOTE | 2020-11-11 14:31 | Cardiac Electrophysiology PN ---
Assessment/Plan Assessment/Plan 1. NSTEMI with troponin of 0.25 and 0.35 in this patient with DKA as well as atrial flutter with rapid ventricular response. On metoprolol 50 mg b.i.d. EF 65% 2. Atrial flutter with RVR On metoprolol 50 mg bid, Cardizem 90 bid and Amiodarone 200 po daily Eliquis held for hematuria 3. Diabetic ketoacidosis with glucose of more than 1000. 4. Accelerated hypertension. On Lopressor 50 bid and Cardizem 90 bid 5. COVID positive pneumonia. 6. Acute Renal failure in the setting of total CK of 1900, maybe rhabdomyolysis- induced renal failure. On HD via RFV Yazan by Dr. Buckley. RFV Yazan pulled out by patient. New Yazan is being placed BNP 550. Cr 3.1 DW RN Subjective Subjective Pulled out his RFV Yazan catheter after HD 11/08/20 In restraints in covid isolation. On 2 liter NC. In SR on Amio, Cardizem and metoprolol. Off Eliquis due to hematuria Getting new Yazan catheter today Objective Last 24 Hour Vital Signs Date Time Temp Pulse Resp B/P (MAP) Pulse Ox O2 Delivery O2 Flow Rate FiO2 11/11/20 14:04 88 124/59 11/11/20 14:03 88 124/59 11/11/20 12:00 97.9 65 18 105/50 (68) 96 11/11/20 12:00 76 11/11/20 09:00 Nasal Cannula 2.0 11/11/20 08:00 98.1 71 20 132/59 (83) 90 11/11/20 08:00 68 11/11/20 04:00 98.4 72 20 128/63 (84) 93 11/11/20 04:00 64 11/11/20 00:00 99.5 70 20 110/56 (74) 94 11/11/20 00:00 69 11/10/20 21:34 102 114/62 11/10/20 21:00 Nasal Cannula 2.0 11/10/20 20:14 98 Nasal Cannula 2.0 28 11/10/20 20:00 97.7 102 20 114/62 (79) 98 11/10/20 20:00 100 11/10/20 17:36 105 128/66 11/10/20 16:00 98.1 61 19 128/66 (86) 96 11/10/20 16:00 105 Intake and Output 11/10/20 11/11/20 19:00 07:00 Intake Total 1200 ml Output Total 1200 ml Balance 0 ml Intake Oral 1200 ml Output Urine Total 1200 ml # Voids 3 3 # Bowel Movements 3 3 Laboratory Tests Test 11/10/20 16:54 11/10/20 21:25 11/11/20 06:09 11/11/20 09:00 POC Whole Blood Glucose 148 MG/DL (74-106) H 282 MG/DL (74-106) H Pending White Blood Count 10.1 K/UL (4.8-10.8) Red Blood Count 2.86 M/UL (4.70-6.10) L Hemoglobin 8.7 G/DL (14.2-18.0) L Hematocrit 25.8 % (42.0-52.0) L Mean Corpuscular Volume 90 FL (80-99) Mean Corpuscular Hemoglobin 30.3 PG (27.0-31.0) Mean Corpuscular Hemoglobin Concent 33.6 G/DL (32.0-36.0) Red Cell Distribution Width 12.6 % (11.6-14.8) Platelet Count 231 K/UL (150-450) Mean Platelet Volume 6.6 FL (6.5-10.1) Neutrophils (%) (Auto) % (45.0-75.0) Lymphocytes (%) (Auto) % (20.0-45.0) Monocytes (%) (Auto) % (1.0-10.0) Eosinophils (%) (Auto) % (0.0-3.0) Basophils (%) (Auto) % (0.0-2.0) Differential Total Cells Counted 100 Neutrophils % (Manual) 89 % (45-75) H Lymphocytes % (Manual) 5 % (20-45) L Monocytes % (Manual) 5 % (1-10) Eosinophils % (Manual) 1 % (0-3) Basophils % (Manual) 0 % (0-2) Band Neutrophils 0 % (0-8) Platelet Estimate Adequate Platelet Morphology Normal Hypochromasia 1+ Sodium Level 142 MMOL/L (136-145) Potassium Level 4.0 MMOL/L (3.5-5.1) Chloride Level 105 MMOL/L (98-107) Carbon Dioxide Level 33 MMOL/L (21-32) H Anion Gap 5 mmol/L (5-15) Blood Urea Nitrogen 55 mg/dL (7-18) H Creatinine 3.3 MG/DL (0.55-1.30) H Estimat Glomerular Filtration Rate 18.3 mL/min (>60) Glucose Level 106 MG/DL (74-106) Calcium Level 8.4 MG/DL (8.5-10.1) L Phosphorus Level 3.7 MG/DL (2.5-4.9) Magnesium Level 2.1 MG/DL (1.8-2.4) Total Bilirubin 0.3 MG/DL (0.2-1.0) Aspartate Amino Transf (AST/SGOT) 27 U/L (15-37) Alanine Aminotransferase (ALT/SGPT) 44 U/L (12-78) Alkaline Phosphatase 70 U/L (46-116) C-Reactive Protein, Quantitative 4.3 mg/dL (0.00-0.90) H Pro-B-Type Natriuretic Peptide 1040 pg/mL (0-125) H Total Protein 5.0 G/DL (6.4-8.2) L Albumin 1.7 G/DL (3.4-5.0) L Globulin 3.3 g/dL Albumin/Globulin Ratio 0.5 (1.0-2.7) L Objective HEAD AND NECK: Shows no JVD. LUNGS: Clear. CARDIOVASCULAR: Shows regular S1 and S2 with no gallop. ABDOMEN: Soft. EXTREMITIES: Right Femoral Yazan is pulled out. No pitting edema. Sivakumar Escalante MD Nov 11, 2020 14:31
--- NOTE | 2020-11-11 14:46 | NUR ---
RADIOLOGY NOTE: DIALYSIS NON TUNNELLED CATHETER PLACEMENT BY DR. DUKE PAGE AT 1435 HRS. FA
--- NOTE | 2020-11-11 14:51 | NUR ---
NURSE NOTES: Re non admin ativan. It was PRN dose for the placement of a henyr cath, however pt was not agitated at the time of the cath placement and was tolerating staying in flat position with no problems.
--- NOTE | 2020-11-11 15:56 | Brief Operative Note ---
Immediate Post Operative Note Operative Note Pre-op Diagnosis: renal failure Procedure: R JENA figueroa Post-op Diagnosis: same as pre-op Surgeon: Sarita Ramirez Anesthesia: local Specimen: none Complications: none Fluids: none Implant(s) used?: No Rony Ramirez MD Nov 11, 2020 15:56
[2020-11-11 16:00] VITALS: BP 154/61
--- NOTE | 2020-11-11 16:37 | Surgery Progress Note ---
Surgery Progress Note Subjective Procedure Performed Right femoral temporary hemodialysis catheter insertion Additional Comments no acute events new line today HD line placement Objective Last 24 Hour Vital Signs Date Time Temp Pulse Resp B/P (MAP) Pulse Ox O2 Delivery O2 Flow Rate FiO2 11/11/20 16:00 82 11/11/20 16:00 98.6 78 20 154/61 (92) 96 11/11/20 14:04 88 124/59 11/11/20 14:03 88 124/59 11/11/20 12:00 97.9 65 18 105/50 (68) 96 11/11/20 12:00 76 11/11/20 09:00 Nasal Cannula 2.0 11/11/20 08:00 98.1 71 20 132/59 (83) 90 11/11/20 08:00 68 11/11/20 04:00 98.4 72 20 128/63 (84) 93 11/11/20 04:00 64 11/11/20 00:00 99.5 70 20 110/56 (74) 94 11/11/20 00:00 69 11/10/20 21:34 102 114/62 11/10/20 21:00 Nasal Cannula 2.0 11/10/20 20:14 98 Nasal Cannula 2.0 28 11/10/20 20:00 97.7 102 20 114/62 (79) 98 11/10/20 20:00 100 11/10/20 17:36 105 128/66 I&O Intake and Output 11/10/20 11/11/20 19:00 07:00 Intake Total 1200 ml Output Total 1200 ml Balance 0 ml Intake Oral 1200 ml Output Urine Total 1200 ml # Voids 3 3 # Bowel Movements 3 3 Dressing: saturated Cardiovascular: RSR Respiratory: decreased breath sounds Abdomen: soft, non-tender, present bowel sounds Extremities: edema, no tenderness, no cyanosis Laboratory Tests Test 11/10/20 16:54 11/10/20 21:25 11/11/20 06:09 11/11/20 09:00 POC Whole Blood Glucose 148 MG/DL (74-106) H 282 MG/DL (74-106) H Pending White Blood Count 10.1 K/UL (4.8-10.8) Red Blood Count 2.86 M/UL (4.70-6.10) L Hemoglobin 8.7 G/DL (14.2-18.0) L Hematocrit 25.8 % (42.0-52.0) L Mean Corpuscular Volume 90 FL (80-99) Mean Corpuscular Hemoglobin 30.3 PG (27.0-31.0) Mean Corpuscular Hemoglobin Concent 33.6 G/DL (32.0-36.0) Red Cell Distribution Width 12.6 % (11.6-14.8) Platelet Count 231 K/UL (150-450) Mean Platelet Volume 6.6 FL (6.5-10.1) Neutrophils (%) (Auto) % (45.0-75.0) Lymphocytes (%) (Auto) % (20.0-45.0) Monocytes (%) (Auto) % (1.0-10.0) Eosinophils (%) (Auto) % (0.0-3.0) Basophils (%) (Auto) % (0.0-2.0) Differential Total Cells Counted 100 Neutrophils % (Manual) 89 % (45-75) H Lymphocytes % (Manual) 5 % (20-45) L Monocytes % (Manual) 5 % (1-10) Eosinophils % (Manual) 1 % (0-3) Basophils % (Manual) 0 % (0-2) Band Neutrophils 0 % (0-8) Platelet Estimate Adequate Platelet Morphology Normal Hypochromasia 1+ Sodium Level 142 MMOL/L (136-145) Potassium Level 4.0 MMOL/L (3.5-5.1) Chloride Level 105 MMOL/L (98-107) Carbon Dioxide Level 33 MMOL/L (21-32) H Anion Gap 5 mmol/L (5-15) Blood Urea Nitrogen 55 mg/dL (7-18) H Creatinine 3.3 MG/DL (0.55-1.30) H Estimat Glomerular Filtration Rate 18.3 mL/min (>60) Glucose Level 106 MG/DL (74-106) Calcium Level 8.4 MG/DL (8.5-10.1) L Phosphorus Level 3.7 MG/DL (2.5-4.9) Magnesium Level 2.1 MG/DL (1.8-2.4) Total Bilirubin 0.3 MG/DL (0.2-1.0) Aspartate Amino Transf (AST/SGOT) 27 U/L (15-37) Alanine Aminotransferase (ALT/SGPT) 44 U/L (12-78) Alkaline Phosphatase 70 U/L (46-116) C-Reactive Protein, Quantitative 4.3 mg/dL (0.00-0.90) H Pro-B-Type Natriuretic Peptide 1040 pg/mL (0-125) H Total Protein 5.0 G/DL (6.4-8.2) L Albumin 1.7 G/DL (3.4-5.0) L Globulin 3.3 g/dL Albumin/Globulin Ratio 0.5 (1.0-2.7) L Test 11/11/20 16:28 11/11/20 16:30 POC Whole Blood Glucose 450 MG/DL (74-106) H 479 MG/DL (74-106) H Plan Problems: (1) DKA (diabetic ketoacidoses) (2) Renal failure (ARF), acute on chronic (3) COVID-19 virus infection Assessment & Plan: 75-year-old male Covid positive renal insufficiency recently had temporary dialysis catheter placement develop leukocytosis soon after. Vitals noted. Exam stable. Catheter was evaluated no acute active inflammatory or infectious process identified. Catheter is clean dry intact. The dressings are not saturated. There is no active bleeding identified. There is no signs of active infection. Leukocytosis anterior collated to medications currently given for COVID-19 infection. Will monitor closely to ensure no active development of infection or related to catheter placement. Thank you for let me participate patient's care will follow with recommendations trend leukocytosis cont dressings cont care plan as noted cont HD trend renal function (4) Rhabdomyolysis Assessment & Plan: DAILY ESTIMATED NEEDS: Needs based on DM, pulmonary 68.4kg 25-30 kcals/kg 0901-9710 total kcals 1-1.5 g protein/kg 68-102 g total protein 25-30 mL/kg 4951-1535 total fluid mLs NUTRITION DIAGNOSIS: Altered nutrition related lab values r/t DKA as evidenced by Uglu 4+ on adm, small acetone detected, BG 1087, A1C 8.1. CURRENT DIET: Renal + Ensure TID PO DIET RECOMMENDATIONS: With poor po rec LOW NA/ CCHO MED diet (texture as tolerated) ENTERAL NUTRITION RECOMMENDATIONS: Consider non oral feeds if part of POC w/ poor po intake ADDITIONAL RECOMMENDATIONS: 1) Recommend supplement w/ continued poor intake Nepro TID w/ elevated K 2) Monitor BG w/ poor po, pt at risk for hypoglycemia w/ insulin regimen 3) Maintain calibrated bed scale wts 4) Non oral feeds of part of POC, w/ continued poor to fair po intake Pt is A&O x1, on haldol Patient pulled out right femoral central line (henry cath). Pressure was applied for 10mins. Bleeding was stopped. Dressing was applied to site will plan for new line (5) Diabetes mellitus out of control (6) Abnormal thyroid blood test (7) NSTEMI (non-ST elevated myocardial infarction) Norberto Steele Nov 11, 2020 16:37
--- NOTE | 2020-11-11 17:00 | Diagnostic Imaging Report ---
Indication: Renal failure Technique: Procedure performed at bedside. Procedural timeout performed. Total sterile technique, including sterile probe cover and sterile gel, sterile gloves, hand hygiene, hat, mask, sterile gown, large sterile drape, and preparation with 2% chlorhexidine utilized. Local anesthesia with 1% lidocaine. Ultrasound reveals patent compressible right internal jugular vein. Under real-time ultrasound guidance with real-time visualization of the entry into the vein, puncture right internal jugular vein using and gauge micropuncture needle, passage 0.018 guidewire, insertion 4 Barbadian micropuncture introducer, passage 0.035 guidewire, over which was passed serial dilators and then a 13 Barbadian 15 cm triple-lumen temporary dialysis catheter. Guidewire was removed. Catheter ports were aspirated and flushed. The catheter was fixed to the skin. Patient tolerated procedure well. A chest x-ray was obtained, documents catheter tip position at the cavoatrial junction. Comparison: 11/04/2020 Findings: As above Impression: Successful bedside placement of right transjugular temporary dialysis catheter, as described.
--- NOTE | 2020-11-11 19:13 | NUR ---
NURSE HAND-OFF REPORT: Important Events on Shift:[Yazan placed in right IJ. Hyperglycemia event, MD made aware.] Patient Status: [Full code] Diet: [Renal Pure] Pending Orders: [] Pending Results/Labs:[] Pending MD notification:[] Latest Vital Signs: Temperature 98.6 , Pulse 78 , B/P 117 /59 , Respiratory Rate 20 , O2 SAT 96 , Nasal Cannula, O2 Flow Rate 2.0 . Vital Sign Comment: [] EKG Rhythm: Sinus Rhythm Rhythm change?: N Notified?: Amari MCQUEEN MD Response: Message left await call Latest Bhat Fall Score: 85 Fall Risk: High Risk Safety Measures: Call light Within Reach, Bed Alarm Zone 1, Side Rails Side Rails x3, Bed position Low and Locked. Fall Precautions: Yellow Socks Report given to [Sidney PALM].
--- NOTE | 2020-11-11 19:21 | NUR ---
NURSE NOTES: Patient received from Ani RN. Patient comfortable in bed. A & o x 1-2. No s/s of pain and no s/s of distress. On 4L of oxygen via nasal cannula saturation WNL. IV site patent and intact on Left hand 22G SL and a Right IJ triple lumen patent and intact SL. Patient in Bilateral soft wrist restraints for pulling of IV. Bed in lowest position and locked. Call light and bedside table within reach.
--- NOTE | 2020-11-11 19:54 | General Progress Note ---
Subjective ROS Limited/Unobtainable: Yes Allergies: Coded Allergies: No Known Allergies (Unverified , 10/31/20) Objective Last 24 Hour Vital Signs Date Time Temp Pulse Resp B/P (MAP) Pulse Ox O2 Delivery O2 Flow Rate FiO2 11/11/20 17:19 78 117/59 11/11/20 16:00 82 11/11/20 16:00 98.6 78 20 154/61 (92) 96 11/11/20 14:04 88 124/59 11/11/20 14:03 88 124/59 11/11/20 12:00 97.9 65 18 105/50 (68) 96 11/11/20 12:00 76 11/11/20 09:00 Nasal Cannula 2.0 11/11/20 08:34 96 Nasal Cannula 2.0 28 11/11/20 08:00 98.1 71 20 132/59 (83) 90 11/11/20 08:00 68 11/11/20 04:00 98.4 72 20 128/63 (84) 93 11/11/20 04:00 64 11/11/20 00:00 99.5 70 20 110/56 (74) 94 11/11/20 00:00 69 11/10/20 21:34 102 114/62 11/10/20 21:00 Nasal Cannula 2.0 11/10/20 20:14 98 Nasal Cannula 2.0 28 11/10/20 20:00 97.7 102 20 114/62 (79) 98 11/10/20 20:00 100 Intake and Output 11/10/20 11/11/20 19:00 07:00 Intake Total 1200 ml Output Total 1200 ml Balance 0 ml Intake Oral 1200 ml Output Urine Total 1200 ml # Voids 3 3 # Bowel Movements 3 3 Laboratory Tests 11/10/20 21:25: POC Whole Blood Glucose 282H 11/11/20 06:09: POC Whole Blood Glucose [Pending] 11/11/20 09:00: White Blood Count 10.1, Red Blood Count 2.86L, Hemoglobin 8.7L, Hematocrit 25.8L , Mean Corpuscular Volume 90, Mean Corpuscular Hemoglobin 30.3, Mean Corpuscular Hemoglobin Concent 33.6, Red Cell Distribution Width 12.6, Platelet Count 231, Mean Platelet Volume 6.6, Neutrophils (%) (Auto) , Lymphocytes (%) (Auto) , Monocytes (%) (Auto) , Eosinophils (%) (Auto) , Basophils (%) (Auto) , Differential Total Cells Counted 100, Neutrophils % (Manual) 89H, Lymphocytes % (Manual) 5L, Monocytes % (Manual) 5, Eosinophils % (Manual) 1, Basophils % (Manual) 0, Band Neutrophils 0, Platelet Estimate Adequate, Platelet Morphology Normal, Hypochromasia 1+, Sodium Level 142, Potassium Level 4.0, Chloride Level 105, Carbon Dioxide Level 33H, Anion Gap 5, Blood Urea Nitrogen 55H, Creatinine 3.3H, Estimat Glomerular Filtration Rate 18.3, Glucose Level 106, Calcium Level 8.4L, Phosphorus Level 3.7, Magnesium Level 2.1, Total Bilirubin 0.3, Aspartate Amino Transf (AST/SGOT) 27, Alanine Aminotransferase (ALT/SGPT) 44, Alkaline Phosphatase 70, C-Reactive Protein, Quantitative 4.3H, Pro-B-Type Natriuretic Peptide 1040H, Total Protein 5.0L, Albumin 1.7L, Globulin 3.3, Albumin/Globulin Ratio 0.5L 11/11/20 16:28: POC Whole Blood Glucose 450H 11/11/20 16:30: POC Whole Blood Glucose 479H Height (Feet): 5 Height (Inches): 5.00 Weight (Pounds): 150 Assessment/Plan Problem List: (1) Renal failure (ARF), acute on chronic ICD Codes: N17.9 - Acute kidney failure, unspecified; N18.9 - Chronic kidney disease, unspecified SNOMED: 917030174 (2) DKA (diabetic ketoacidoses) ICD Codes: E11.10 - Type 2 diabetes mellitus with ketoacidosis without coma SNOMED: 131387858, 60707888 (3) COVID-19 virus infection ICD Codes: U07.1 - COVID-19 SNOMED: 034155418 (4) Rhabdomyolysis ICD Codes: M62.82 - Rhabdomyolysis SNOMED: 694200462 (5) Diabetes mellitus out of control ICD Codes: E11.65 - Type 2 diabetes mellitus with hyperglycemia SNOMED: 27523231, 841011423 (6) Abnormal thyroid blood test ICD Codes: R79.89 - Other specified abnormal findings of blood chemistry SNOMED: 742499215, 322674103278851 (7) NSTEMI (non-ST elevated myocardial infarction) ICD Codes: I21.4 - Non-ST elevation (NSTEMI) myocardial infarction SNOMED: 92618646 Status: progressing, unchanged Assessment/Plan: covid + dka resolved esrd diabetic anemia h/h is stable continue supportive care Corey Soto MD Nov 11, 2020 19:54
[2020-11-11 20:00] VITALS: BP 117/57
[2020-11-11] MEDS: Dyna-Hex 2% Top Sol 2oz TOPIC SCH (20:15)
--- NOTE | 2020-11-11 21:58 | Psychiatric Progress Note ---
Psychiatry Progress Note Psychiatry Progress Note Medications Current Medications Medications (Trade) Dose Ordered Sig/Manasa Route PRN Reason Start Time Stop Time Status Last Admin Dose Admin Acetaminophen (Tylenol) 500 mg Q4H PRN ORAL For Pain 11/01/20 01:00 12/01/20 00:59 11/01/20 18:50 Acetaminophen (Tylenol) 650 mg Q4H PRN RECTAL Temp >100.5 11/01/20 21:30 12/01/20 21:29 Allopurinol (Zyloprim) 200 mg DAILY ORAL 11/01/20 16:00 12/01/20 15:59 11/11/20 10:54 Amiodarone HCl (Cordarone) 200 mg DAILY ORAL 11/10/20 09:00 02/08/21 08:59 11/11/20 10:53 Chlorhexidine Gluconate (María Elena-Hex 2%) 1 applic DAILY@1999 TOPIC 11/04/20 20:00 02/02/21 19:59 11/11/20 20:15 Clonidine HCl (Catapres Tab) 0.1 mg Q4H PRN ORAL bp over 160 syst 10/31/20 17:45 01/29/21 17:44 11/01/20 09:20 Dexamethasone Sodium Phosphate (Decadron 10mg/ ml Inj) 6 mg DAILY IV 11/03/20 09:00 11/13/20 08:59 11/11/20 10:54 Dextrose (Dextrose 50%) 25 ml Q30M PRN IV Hypoglycemia 11/01/20 07:15 01/30/21 07:14 Dextrose (Dextrose 50%) 50 ml Q30M PRN IV Hypoglycemia 11/01/20 07:15 01/30/21 07:14 Diltiazem HCl (Cardizem Tab) 90 mg BID ORAL 11/07/20 10:15 12/02/20 17:59 11/11/20 17:19 Docusate Sodium (Colace) 100 mg TWICE A DAY ORAL 10/31/20 18:00 11/30/20 17:59 11/11/20 17:19 Haloperidol Lactate (Haldol) 5 mg Q6H PRN IM Agitation 11/06/20 21:30 12/21/20 21:29 11/09/20 02:40 Heparin Sodium/ Sodium Chloride (Heparin 1000 units/500ml Premix) 1,000 unit ONCE PRN IV radiology procedure 11/11/20 09:00 11/13/20 08:59 Insulin Aspart (NovoLOG) BEFORE MEALS AND HS SUBQ 11/01/20 11:30 01/30/21 11:29 11/11/20 20:17 Insulin Aspart (NovoLOG) 10 units NOVOTIAC SUBQ 11/10/20 06:30 01/30/21 11:49 11/11/20 16:36 Insulin Detemir (Levemir) 15 units BID SUBQ 11/10/20 09:00 01/30/21 08:59 11/11/20 17:20 Lidocaine HCl (Xylocaine 1% 30ml) 30 ml ONCE PRN INJ radiology procedure 11/11/20 09:00 11/13/20 08:59 Methimazole (Tapazole) 10 mg DAILY ORAL 11/03/20 09:00 12/03/20 08:59 11/11/20 10:53 Metoprolol Tartrate (Lopressor) 50 mg Q12HR ORAL 11/01/20 21:00 01/30/21 20:59 11/11/20 20:16 Ondansetron HCl (Zofran) 4 mg Q6H PRN IVP Nausea & Vomiting 11/07/20 16:30 12/07/20 16:29 11/07/20 17:28 Pantoprazole (Protonix) 40 mg BID ORAL 10/31/20 18:00 11/30/20 17:44 11/11/20 17:20 Sitagliptin Phosphate (Januvia) 25 mg ACBREAKFAST ORAL 11/06/20 06:30 12/06/20 06:29 11/11/20 06:09 Tamsulosin HCl (Flomax) 0.4 mg BID ORAL 11/03/20 12:00 12/03/20 11:59 11/11/20 17:20 Neurological/Psychiatric: Reports: anxiety, depressed, emotional problems Allergies: Coded Allergies: No Known Allergies (Unverified , 10/31/20) Objective Data Height (Feet): 5 Height (Inches): 5.00 Weight (Pounds): 150 General Appearance: no apparent distress Additional Comments: The patient is confused, disoriented, Romansh-speaking. Mood is agitated. Affect is flat. Thought process disorganized. Thought content, no suicidal, homicidal ideation. Cognition is impaired. Insight and judgment is impaired. ASSESSMENT: Lyons I Acute toxic encephalopathy. Dementia. Lyons II Deferred. Lyons III COVID-19. Lyons IV Low. Lyons V 20 PLAN: 1. We will start the patient on soft restraints. 2. Continue to follow and readjust the meds. Assessment/Plan Status: progressing, unchanged Brigido Singh MD Nov 11, 2020 21:58
[2020-11-12] VITALS: BP 107/54
[2020-11-12 04:00] VITALS: BP 127/56
[2020-11-12 05:01] LABS: HEMATOCRIT 24.3 % (42.0-52.0); HEMOGLOBIN 8.1 G/DL (14.2-18.0); MEAN CORPUSCULAR VOLUME 90 FL (80-99); PLATELET COUNT 203 K/UL (150-450); WHITE BLOOD COUNT 10.7 K/UL (4.8-10.8)
[2020-11-12 06:04] LABS: ALBUMIN 1.6 G/DL (3.4-5.0); ALBUMIN/GLOBULIN RATIO 0.5 (1.0-2.7); BILIRUBIN,TOTAL 0.5 MG/DL (0.2-1.0); CALCIUM 7.8 MG/DL (8.5-10.1); PHOSPHORUS 4.7 MG/DL (2.5-4.9); POTASSIUM 4.5 MMOL/L (3.5-5.1)
[2020-11-12] MEDS: NovoLOG Insulin Flexpen SUBQ SCH ×9 (06:30→20:38)
[2020-11-12] MEDS: sitaGLIPtin 25mg tab ORAL SCH (07:14)
--- NOTE | 2020-11-12 07:17 | NUR ---
NURSE HAND-OFF REPORT: Important Events on Shift:[None] Patient Status: [FC, alert awake] Diet: [Puree renal diet, thin liquids] Pending Orders: [] Pending Results/Labs:[] Pending MD notification:[] Latest Vital Signs: Temperature 97.0 , Pulse 59 , B/P 127 /56 , Respiratory Rate 18 , O2 SAT 98 , Nasal Cannula, O2 Flow Rate 4.0 . Vital Sign Comment: [] EKG Rhythm: Sinus Bradycardia Rhythm change?: N MD Notified?: Amari MCQUEEN MD Response: Message left await call Latest Bhat Fall Score: 60 Fall Risk: High Risk Safety Measures: Call light Within Reach, Bed Alarm Zone 1, Side Rails Side Rails x3, Bed position Low and Locked. Fall Precautions: Yellow Socks Report given to [Katherin PALM].
--- NOTE | 2020-11-12 07:20 | NUR ---
NURSE NOTES: Received report from Jason/RN. Pt in bed sleeping, on 4L nasal cannula, no distress or SOB noted. Pt is on restrains, will monitor q2hr. Dialysis patient, IJ in right side, triple lumen for dialysis. IV on left hand 22G, SL, patent and clean. Bed in the lowest position and locked, call light within reach. Side rail up X3. Will continue plan of care.
[2020-11-12 08:00] VITALS: BP 134/53
[2020-11-12] MEDS: Docusate 100mg cap ORAL SCH ×2 (08:16→17:58)
[2020-11-12] MEDS: Metoprolol Tartrate 50mg tab ORAL SCH ×2 (08:17→20:23)
[2020-11-12] MEDS: Amiodarone 200mg tab ORAL SCH (08:17)
[2020-11-12] MEDS: Allopurinol 100mg Tab ORAL SCH (08:17)
[2020-11-12] MEDS: Tamsulosin 0.4mg cap ORAL SCH ×2 (08:17→17:58)
[2020-11-12] MEDS: dilTIAZem HCl 90mg tab ORAL SCH ×2 (08:18→17:58)
[2020-11-12] MEDS: methIMAzole 10mg tab ORAL SCH (08:18)
[2020-11-12] MEDS: Levemir Flexpen SUBQ SCH ×3 (08:19→18:00)
[2020-11-12] MEDS: dexAMETHasone 10mg/ml Inj IV SCH (08:20)
--- NOTE | 2020-11-12 11:36 | General Progress Note ---
Subjective ROS Limited/Unobtainable: Yes Allergies: Coded Allergies: No Known Allergies (Unverified , 10/31/20) Subjective events noted interval notes reviewed fasting glucose improved mealtime glucose elevated Item Value Date Time Bedside Blood Glucose 92 mg/dl 11/12/20 0819 Bedside Blood Glucose 92 mg/dl 11/12/20 0630 Bedside Blood Glucose 378 mg/dl H 11/11/20 2100 Bedside Blood Glucose 450 mg/dl H 11/11/20 1720 Bedside Blood Glucose 139 mg/dl H 11/11/20 1130 Bedside Blood Glucose 228 mg/dl H 11/11/20 0630 Objective Last 24 Hour Vital Signs Date Time Temp Pulse Resp B/P (MAP) Pulse Ox O2 Delivery O2 Flow Rate FiO2 11/12/20 09:00 Nasal Cannula 4.0 11/12/20 08:18 62 134/53 11/12/20 08:17 62 134/53 11/12/20 08:00 62 11/12/20 08:00 97.4 62 20 134/53 (80) 99 11/12/20 04:00 51 11/12/20 04:00 97.0 59 18 127/56 (79) 98 11/12/20 00:00 58 11/12/20 00:00 97.6 61 18 107/54 (71) 94 11/11/20 21:00 Nasal Cannula 4.0 11/11/20 20:16 67 117/51 11/11/20 20:00 64 11/11/20 20:00 97.1 74 18 117/57 (77) 96 11/11/20 19:37 96 Nasal Cannula 2.0 28 11/11/20 17:19 78 117/59 11/11/20 16:00 82 11/11/20 16:00 98.6 78 20 154/61 (92) 96 11/11/20 14:04 88 124/59 11/11/20 14:03 88 124/59 11/11/20 12:00 97.9 65 18 105/50 (68) 96 11/11/20 12:00 76 Intake and Output 11/11/20 11/12/20 19:00 07:00 Intake Total 300 ml 360 ml Balance 300 ml 360 ml Intake Oral 300 ml Other 360 ml # Voids 2 2 # Bowel Movements 3 Laboratory Tests 11/11/20 16:28: POC Whole Blood Glucose 450H 1/15/21 16:30: POC Whole Blood Glucose 479H 11/12/20 04:00: White Blood Count 10.7, Red Blood Count 2.70L, Hemoglobin 8.1L, Hematocrit 24.3L , Mean Corpuscular Volume 90, Mean Corpuscular Hemoglobin 30.1, Mean Corpuscular Hemoglobin Concent 33.4, Red Cell Distribution Width 13.0, Platelet Count 203, Mean Platelet Volume 6.7, Neutrophils (%) (Auto) , Lymphocytes (%) (Auto) , Monocytes (%) (Auto) , Eosinophils (%) (Auto) , Basophils (%) (Auto) , Differential Total Cells Counted 100, Neutrophils % (Manual) 92H, Lymphocytes % (Manual) 4L, Monocytes % (Manual) 4, Eosinophils % (Manual) 0, Basophils % (Manual) 0, Band Neutrophils 0, Platelet Estimate Adequate, Platelet Morphology Normal, Hypochromasia 1+, Sodium Level 140, Potassium Level 4.5, Chloride Level 105, Carbon Dioxide Level 29, Anion Gap 6, Blood Urea Nitrogen 56H, Creatinine 3.0H, Estimat Glomerular Filtration Rate 20.4, Glucose Level 77, Uric Acid 5.7, Calcium Level 7.8L, Phosphorus Level 4.7, Magnesium Level 2.1, Total Bilirubin 0.5, Aspartate Amino Transf (AST/SGOT) 25, Alanine Aminotransferase (ALT/SGPT) 42, Alkaline Phosphatase 65, C-Reactive Protein, Quantitative 3.8H, Total Protein 4.9L, Albumin 1.6L, Globulin 3.3, Albumin/Globulin Ratio 0.5L 11/12/20 05:03: POC Whole Blood Glucose [Pending] 11/12/20 11:19: POC Whole Blood Glucose 164H Height (Feet): 5 Height (Inches): 5.00 Weight (Pounds): 150 Objective Current Medications Medications (Trade) Dose Ordered Sig/Manasa Route PRN Reason Start Time Stop Time Status Last Admin Dose Admin Acetaminophen (Tylenol) 500 mg Q4H PRN ORAL For Pain 11/01/20 01:00 12/01/20 00:59 11/01/20 18:50 Acetaminophen (Tylenol) 650 mg Q4H PRN RECTAL Temp >100.5 11/01/20 21:30 12/01/20 21:29 Allopurinol (Zyloprim) 200 mg DAILY ORAL 11/01/20 16:00 12/01/20 15:59 11/12/20 08:17 Amiodarone HCl (Cordarone) 200 mg DAILY ORAL 11/10/20 09:00 02/08/21 08:59 11/12/20 08:17 Chlorhexidine Gluconate (María Elena-Hex 2%) 1 applic DAILY@2000 TOPIC 11/04/20 20:00 02/02/21 19:59 11/11/20 20:15 Clonidine HCl (Catapres Tab) 0.1 mg Q4H PRN ORAL bp over 160 syst 10/31/20 17:45 01/29/21 17:44 11/01/20 09:20 Dexamethasone Sodium Phosphate (Decadron 10mg/ ml Inj) 6 mg DAILY IV 11/03/20 09:00 11/13/20 08:59 11/12/20 08:20 Dextrose (Dextrose 50%) 25 ml Q30M PRN IV Hypoglycemia 11/01/20 07:15 01/30/21 07:14 Dextrose (Dextrose 50%) 50 ml Q30M PRN IV Hypoglycemia 11/01/20 07:15 01/30/21 07:14 Diltiazem HCl (Cardizem Tab) 90 mg BID ORAL 11/07/20 10:15 12/02/20 17:59 11/12/20 08:18 Docusate Sodium (Colace) 100 mg TWICE A DAY ORAL 10/31/20 18:00 11/30/20 17:59 11/12/20 08:16 Haloperidol Lactate (Haldol) 5 mg Q6H PRN IM Agitation 11/06/20 21:30 12/21/20 21:29 11/09/20 02:40 Heparin Sodium/ Sodium Chloride (Heparin 1000 units/500ml Premix) 1,000 unit ONCE PRN IV radiology procedure 11/11/20 09:00 11/13/20 08:59 Insulin Aspart (NovoLOG) BEFORE MEALS AND HS SUBQ 11/01/20 11:30 01/30/21 11:29 11/11/20 20:17 Insulin Aspart (NovoLOG) 10 units NOVOTIAC SUBQ 11/10/20 06:30 01/30/21 11:49 11/12/20 07:31 Insulin Detemir (Levemir) 15 units BID SUBQ 11/10/20 09:00 01/30/21 08:59 11/11/20 17:20 Lidocaine HCl (Xylocaine 1% 30ml) 30 ml ONCE PRN INJ radiology procedure 11/11/20 09:00 11/13/20 08:59 Methimazole (Tapazole) 10 mg DAILY ORAL 11/03/20 09:00 12/03/20 08:59 11/12/20 08:18 Metoprolol Tartrate (Lopressor) 50 mg Q12HR ORAL 11/01/20 21:00 01/30/21 20:59 11/12/20 08:17 Ondansetron HCl (Zofran) 4 mg Q6H PRN IVP Nausea & Vomiting 11/07/20 16:30 12/07/20 16:29 11/07/20 17:28 Pantoprazole (Protonix) 40 mg BID ORAL 10/31/20 18:00 11/30/20 17:44 11/12/20 08:18 Sitagliptin Phosphate (Januvia) 25 mg ACBREAKFAST ORAL 11/06/20 06:30 12/06/20 06:29 11/12/20 07:14 Tamsulosin HCl (Flomax) 0.4 mg BID ORAL 11/03/20 12:00 12/03/20 11:59 11/12/20 08:17 Assessment/Plan Problem List: (1) Abnormal thyroid blood test ICD Codes: R79.89 - Other specified abnormal findings of blood chemistry SNOMED: 467755538, 727353805549350 (2) Diabetes mellitus out of control ICD Codes: E11.65 - Type 2 diabetes mellitus with hyperglycemia SNOMED: 72768425, 271497959 (3) Renal failure (ARF), acute on chronic ICD Codes: N17.9 - Acute kidney failure, unspecified; N18.9 - Chronic kidney disease, unspecified SNOMED: 831572320 (4) COVID-19 virus infection ICD Codes: U07.1 - COVID-19 SNOMED: 887424086 (5) DKA (diabetic ketoacidoses) ICD Codes: E11.10 - Type 2 diabetes mellitus with ketoacidosis without coma SNOMED: 070759425, 92821227 (6) NSTEMI (non-ST elevated myocardial infarction) ICD Codes: I21.4 - Non-ST elevation (NSTEMI) myocardial infarction SNOMED: 19851393 Status: progressing, unchanged Assessment/Plan: reduce Levemir to 10 units bid - hold if glucose < 90 mg/dL increase Novolog to 19 units ac tid + hold if glucose < 90 mg/dL continue Novolog sliding scale ac hs continue Januvia 25 mg daily continue Tapazole 10 mg daily TSI pending Markus Tamez MD Nov 12, 2020 11:36
--- NOTE | 2020-11-12 11:38 | Surgery Progress Note ---
Surgery Progress Note Subjective Procedure Performed Right femoral temporary hemodialysis catheter insertion Additional Comments Pt in bed sleeping, on 4L nasal cannula, no distress or SOB noted. Pt is on restrains Objective Last 24 Hour Vital Signs Date Time Temp Pulse Resp B/P (MAP) Pulse Ox O2 Delivery O2 Flow Rate FiO2 11/12/20 09:00 Nasal Cannula 4.0 11/12/20 08:18 62 134/53 11/12/20 08:17 62 134/53 11/12/20 08:00 62 11/12/20 08:00 97.4 62 20 134/53 (80) 99 11/12/20 04:00 51 11/12/20 04:00 97.0 59 18 127/56 (79) 98 11/12/20 00:00 58 11/12/20 00:00 97.6 61 18 107/54 (71) 94 11/11/20 21:00 Nasal Cannula 4.0 11/11/20 20:16 67 117/51 11/11/20 20:00 64 11/11/20 20:00 97.1 74 18 117/57 (77) 96 11/11/20 19:37 96 Nasal Cannula 2.0 28 11/11/20 17:19 78 117/59 11/11/20 16:00 82 11/11/20 16:00 98.6 78 20 154/61 (92) 96 11/11/20 14:04 88 124/59 11/11/20 14:03 88 124/59 11/11/20 12:00 97.9 65 18 105/50 (68) 96 11/11/20 12:00 76 I&O Intake and Output 11/11/20 11/12/20 19:00 07:00 Intake Total 300 ml 360 ml Balance 300 ml 360 ml Intake Oral 300 ml Other 360 ml # Voids 2 2 # Bowel Movements 3 Dressing: dry Wound: clean Cardiovascular: RSR Respiratory: clear, decreased breath sounds Abdomen: flat, non-tender, present bowel sounds, non-distended Extremities: no edema, no tenderness, no cyanosis Laboratory Tests Test 11/11/20 16:28 11/11/20 16:30 11/12/20 04:00 11/12/20 05:03 POC Whole Blood Glucose 450 MG/DL (74-106) H 479 MG/DL (74-106) H Pending White Blood Count 10.7 K/UL (4.8-10.8) Red Blood Count 2.70 M/UL (4.70-6.10) L Hemoglobin 8.1 G/DL (14.2-18.0) L Hematocrit 24.3 % (42.0-52.0) L Mean Corpuscular Volume 90 FL (80-99) Mean Corpuscular Hemoglobin 30.1 PG (27.0-31.0) Mean Corpuscular Hemoglobin Concent 33.4 G/DL (32.0-36.0) Red Cell Distribution Width 13.0 % (11.6-14.8) Platelet Count 203 K/UL (150-450) Mean Platelet Volume 6.7 FL (6.5-10.1) Neutrophils (%) (Auto) % (45.0-75.0) Lymphocytes (%) (Auto) % (20.0-45.0) Monocytes (%) (Auto) % (1.0-10.0) Eosinophils (%) (Auto) % (0.0-3.0) Basophils (%) (Auto) % (0.0-2.0) Differential Total Cells Counted 100 Neutrophils % (Manual) 92 % (45-75) H Lymphocytes % (Manual) 4 % (20-45) L Monocytes % (Manual) 4 % (1-10) Eosinophils % (Manual) 0 % (0-3) Basophils % (Manual) 0 % (0-2) Band Neutrophils 0 % (0-8) Platelet Estimate Adequate Platelet Morphology Normal Hypochromasia 1+ Sodium Level 140 MMOL/L (136-145) Potassium Level 4.5 MMOL/L (3.5-5.1) Chloride Level 105 MMOL/L (98-107) Carbon Dioxide Level 29 MMOL/L (21-32) Anion Gap 6 mmol/L (5-15) Blood Urea Nitrogen 56 mg/dL (7-18) H Creatinine 3.0 MG/DL (0.55-1.30) H Estimat Glomerular Filtration Rate 20.4 mL/min (>60) Glucose Level 77 MG/DL (74-106) Uric Acid 5.7 MG/DL (2.6-7.2) Calcium Level 7.8 MG/DL (8.5-10.1) L Phosphorus Level 4.7 MG/DL (2.5-4.9) Magnesium Level 2.1 MG/DL (1.8-2.4) Total Bilirubin 0.5 MG/DL (0.2-1.0) Aspartate Amino Transf (AST/SGOT) 25 U/L (15-37) Alanine Aminotransferase (ALT/SGPT) 42 U/L (12-78) Alkaline Phosphatase 65 U/L (46-116) C-Reactive Protein, Quantitative 3.8 mg/dL (0.00-0.90) H Total Protein 4.9 G/DL (6.4-8.2) L Albumin 1.6 G/DL (3.4-5.0) L Globulin 3.3 g/dL Albumin/Globulin Ratio 0.5 (1.0-2.7) L Test 11/12/20 11:19 POC Whole Blood Glucose 164 MG/DL (74-106) H Plan Problems: (1) DKA (diabetic ketoacidoses) (2) Renal failure (ARF), acute on chronic (3) COVID-19 virus infection Assessment & Plan: 75-year-old male Covid positive renal insufficiency recently had temporary dialysis catheter placement develop leukocytosis soon after. Vitals noted. Exam stable. Catheter was evaluated no acute active inflammatory or infectious process identified. Catheter is clean dry intact. The dressings are not saturated. There is no active bleeding identified. There is no signs of active infection. Leukocytosis anterior collated to medications currently given for COVID-19 infection. Will monitor closely to ensure no active development of infection or related to catheter placement. Thank you for let me participate patient's care will follow with recommendations trend leukocytosis cont dressings cont care plan as noted cont HD trend renal function (4) Rhabdomyolysis Assessment & Plan: DAILY ESTIMATED NEEDS: Needs based on DM, pulmonary 68.4kg 25-30 kcals/kg 9096-5917 total kcals 1-1.5 g protein/kg 68-102 g total protein 25-30 mL/kg 7217-7344 total fluid mLs NUTRITION DIAGNOSIS: Altered nutrition related lab values r/t DKA as evidenced by Uglu 4+ on adm, small acetone detected, BG 1087, A1C 8.1. CURRENT DIET: Renal + Ensure TID PO DIET RECOMMENDATIONS: With poor po rec LOW NA/ CCHO MED diet (texture as tolerated) ENTERAL NUTRITION RECOMMENDATIONS: Consider non oral feeds if part of POC w/ poor po intake ADDITIONAL RECOMMENDATIONS: 1) Recommend supplement w/ continued poor intake Nepro TID w/ elevated K 2) Monitor BG w/ poor po, pt at risk for hypoglycemia w/ insulin regimen 3) Maintain calibrated bed scale wts 4) Non oral feeds of part of POC, w/ continued poor to fair po intake Pt is A&O x1, on haldol Patient pulled out right femoral central line (henry cath). Pressure was applied for 10mins. Bleeding was stopped. Dressing was applied to site will plan for new line (5) Diabetes mellitus out of control (6) Abnormal thyroid blood test (7) NSTEMI (non-ST elevated myocardial infarction) Norberto Steele Nov 12, 2020 11:38
[2020-11-12 12:00] VITALS: BP 107/48
[2020-11-12] MEDS ORDERED: Vitamin D 50,000 units cap ORAL SCH (15:00)
--- NOTE | 2020-11-12 15:38 | Nephrology Progress Note ---
Assessment/Plan Problem List: (1) Renal failure (ARF), acute on chronic (2) DKA (diabetic ketoacidoses) (3) COVID-19 virus infection (4) Rhabdomyolysis (5) Abnormal thyroid blood test (6) NSTEMI (non-ST elevated myocardial infarction) Assessment 75-year-old [place] male Covid positive Acute renal failure, most likely superimposed on chronic kidney disease Diabetes mellitus, presents with severe hyperglycemia and DKA History of hypertension Plan November 12: Labs reviewed. Serum creatinine 3. No dialysis needed today. Continue to monitor renal parameters. November 11: Labs reviewed. Serum creatinine higher. Due for placement of a Nontunneled catheter today. We will schedule dialysis as needed. Patient's leukocytosis gradually improving. November 10: Lab reviewed. Serum creatinine rising. We will proceed with placement of a nontunneled catheter tomorrow and dialysis. Patient has leukocytosis at this time. Continue per consultants. November 09: Labs reviewed. Patient was dialyzed yesterday. Patient pulled out the dialysis catheter last night. Renal parameters stable. Continue to monitor and if dialysis needed to place a new temporary catheter. Per orders. November 08: Labs reviewed. Serum creatinine is plateauing. Due for dialysis today. We will continue to monitor renal parameters and dialysis as needed. November 07: Labs reviewed. Serum creatinine rising. IV fluid discontinued. Dialysis for tomorrow. Continue per consultants. November 06: Labs reviewed. Blood pressure stable. Medication list reviewed. Dialysis as needed. November 05: Due for dialysis today. Labs are reviewed. Blood pressure is stable. Continue to monitor renal parameters. November 04: Patient was dialyzed yesterday. 1 L ultrafiltrated. Labs reviewed. Renal parameters stable. Will attempt dialysis again tomorrow. Medication list reviewed. November 03: Labs reviewed. Serum creatinine rising. Patient has hematuria. Patient on Eliquis. Will arrange for placement of dialysis catheter and attempt to dialyze. Will start Flomax since the patient could not have a Anand catheter. Continue to monitor renal parameters. Continue per consultants. Discussed with RN. Consent for placement of nontunneled catheter ordered. Patient is also on Tapazole for high thyroid hormone. CPK is lowering. November 02: Labs reviewed. Serum creatinine up to 4. In S DU now. On Cardizem drip. Measured creatinine clearance . Patient may lead towards dialysis. Continue to monitor renal parameters. November 01: Renal parameters improving. Blood sugar is improving. Continue to monitor electrolytes renal parameters and urine output. Aim to control blood sugar and blood pressure. Avoid nephrotoxic's. Monitor CPK as it is elevated. Previously: Anand catheter Blood sugar control Slow hydration Monitor renal parameters Kidney ultrasound no hydronephrosis 2D echocardiogram ejection fraction 60 to 65%. Per orders Subjective ROS Limited/Unobtainable: Yes Objective Objective Last 24 Hour Vital Signs Date Time Temp Pulse Resp B/P (MAP) Pulse Ox O2 Delivery O2 Flow Rate FiO2 11/12/20 12:00 97.6 53 20 107/48 (67) 99 11/12/20 12:00 53 11/12/20 09:00 Nasal Cannula 4.0 11/12/20 08:18 62 134/53 11/12/20 08:17 62 134/53 11/12/20 08:00 62 11/12/20 08:00 97.4 62 20 134/53 (80) 99 11/12/20 04:00 51 11/12/20 04:00 97.0 59 18 127/56 (79) 98 11/12/20 00:00 58 11/12/20 00:00 97.6 61 18 107/54 (71) 94 11/11/20 21:00 Nasal Cannula 4.0 11/11/20 20:16 67 117/51 11/11/20 20:00 64 11/11/20 20:00 97.1 74 18 117/57 (77) 96 11/11/20 19:37 96 Nasal Cannula 2.0 28 11/11/20 17:19 78 117/59 11/11/20 16:00 82 11/11/20 16:00 98.6 78 20 154/61 (92) 96 Intake and Output 11/11/20 11/12/20 19:00 07:00 Intake Total 300 ml 360 ml Balance 300 ml 360 ml Intake Oral 300 ml Other 360 ml # Voids 2 2 # Bowel Movements 3 Laboratory Tests 11/11/20 16:28: POC Whole Blood Glucose 450H 11/11/20 16:30: POC Whole Blood Glucose 479H 11/12/20 04:00: White Blood Count 10.7, Red Blood Count 2.70L, Hemoglobin 8.1L, Hematocrit 24.3L , Mean Corpuscular Volume 90, Mean Corpuscular Hemoglobin 30.1, Mean Corpuscular Hemoglobin Concent 33.4, Red Cell Distribution Width 13.0, Platelet Count 203, Mean Platelet Volume 6.7, Neutrophils (%) (Auto) , Lymphocytes (%) (Auto) , Monocytes (%) (Auto) , Eosinophils (%) (Auto) , Basophils (%) (Auto) , Differential Total Cells Counted 100, Neutrophils % (Manual) 92H, Lymphocytes % (Manual) 4L, Monocytes % (Manual) 4, Eosinophils % (Manual) 0, Basophils % (Manual) 0, Band Neutrophils 0, Platelet Estimate Adequate, Platelet Morphology Normal, Hypochromasia 1+, Sodium Level 140, Potassium Level 4.5, Chloride Level 105, Carbon Dioxide Level 29, Anion Gap 6, Blood Urea Nitrogen 56H, Creatinine 3.0H, Estimat Glomerular Filtration Rate 20.4, Glucose Level 77, Uric Acid 5.7, Calcium Level 7.8L, Phosphorus Level 4.7, Magnesium Level 2.1, Total Bilirubin 0.5, Aspartate Amino Transf (AST/SGOT) 25, Alanine Aminotransferase (ALT/SGPT) 42, Alkaline Phosphatase 65, C-Reactive Protein, Quantitative 3.8H, Total Protein 4.9L, Albumin 1.6L, Globulin 3.3, Albumin/Globulin Ratio 0.5L 11/12/20 05:03: POC Whole Blood Glucose [Pending] 11/12/20 11:19: POC Whole Blood Glucose 164H Height (Feet): 5 Height (Inches): 5.00 Weight (Pounds): 150 General Appearance: no apparent distress Cardiovascular: normal rate Respiratory/Chest: decreased breath sounds Abdomen: distended Garth Buckley MD Nov 12, 2020 15:38
[2020-11-12 16:00] VITALS: BP 100/49
--- NOTE | 2020-11-12 16:00 | Infectious Diseases Prog Note ---
Assessment/Plan Assessment/Plan A; COVID19 pneumonia Hypoxemia Acute renal failure improving Rhabdomyolysis Diarrhea, C. difficile negative DKA Hyperthyroidism Anemia Leukocytosis improving P; Continue Dexamethasone X 1 day Subjective ROS Limited/Unobtainable: Yes Constitutional: Denies: fever Psychiatric: Reports: other - on restraint Allergies: Coded Allergies: No Known Allergies (Unverified , 10/31/20) Objective Last 24 Hour Vital Signs Date Time Temp Pulse Resp B/P (MAP) Pulse Ox O2 Delivery O2 Flow Rate FiO2 11/12/20 12:00 97.6 53 20 107/48 (67) 99 11/12/20 12:00 53 11/12/20 09:00 Nasal Cannula 4.0 11/12/20 08:18 62 134/53 11/12/20 08:17 62 134/53 11/12/20 08:00 62 11/12/20 08:00 97.4 62 20 134/53 (80) 99 11/12/20 04:00 51 11/12/20 04:00 97.0 59 18 127/56 (79) 98 11/12/20 00:00 58 11/12/20 00:00 97.6 61 18 107/54 (71) 94 11/11/20 21:00 Nasal Cannula 4.0 11/11/20 20:16 67 117/51 11/11/20 20:00 64 11/11/20 20:00 97.1 74 18 117/57 (77) 96 11/11/20 19:37 96 Nasal Cannula 2.0 28 11/11/20 17:19 78 117/59 11/11/20 16:00 82 11/11/20 16:00 98.6 78 20 154/61 (92) 96 Height (Feet): 5 Height (Inches): 5.00 Weight (Pounds): 150 HEENT: mucous membranes moist Respiratory/Chest: other - oxygen by nasal cannula, 2 L/min Cardiovascular: bradycardia, other - RIJ HD line Abdomen: soft, non tender Extremities: other - edema Neurologic/Psychiatric: alert, responsive Laboratory Tests Test 11/11/20 16:28 11/11/20 16:30 11/12/20 04:00 11/12/20 05:03 POC Whole Blood Glucose 450 MG/DL (74-106) H 479 MG/DL (74-106) H Pending White Blood Count 10.7 K/UL (4.8-10.8) Red Blood Count 2.70 M/UL (4.70-6.10) L Hemoglobin 8.1 G/DL (14.2-18.0) L Hematocrit 24.3 % (42.0-52.0) L Mean Corpuscular Volume 90 FL (80-99) Mean Corpuscular Hemoglobin 30.1 PG (27.0-31.0) Mean Corpuscular Hemoglobin Concent 33.4 G/DL (32.0-36.0) Red Cell Distribution Width 13.0 % (11.6-14.8) Platelet Count 203 K/UL (150-450) Mean Platelet Volume 6.7 FL (6.5-10.1) Neutrophils (%) (Auto) % (45.0-75.0) Lymphocytes (%) (Auto) % (20.0-45.0) Monocytes (%) (Auto) % (1.0-10.0) Eosinophils (%) (Auto) % (0.0-3.0) Basophils (%) (Auto) % (0.0-2.0) Differential Total Cells Counted 100 Neutrophils % (Manual) 92 % (45-75) H Lymphocytes % (Manual) 4 % (20-45) L Monocytes % (Manual) 4 % (1-10) Eosinophils % (Manual) 0 % (0-3) Basophils % (Manual) 0 % (0-2) Band Neutrophils 0 % (0-8) Platelet Estimate Adequate Platelet Morphology Normal Hypochromasia 1+ Sodium Level 140 MMOL/L (136-145) Potassium Level 4.5 MMOL/L (3.5-5.1) Chloride Level 105 MMOL/L (98-107) Carbon Dioxide Level 29 MMOL/L (21-32) Anion Gap 6 mmol/L (5-15) Blood Urea Nitrogen 56 mg/dL (7-18) H Creatinine 3.0 MG/DL (0.55-1.30) H Estimat Glomerular Filtration Rate 20.4 mL/min (>60) Glucose Level 77 MG/DL (74-106) Uric Acid 5.7 MG/DL (2.6-7.2) Calcium Level 7.8 MG/DL (8.5-10.1) L Phosphorus Level 4.7 MG/DL (2.5-4.9) Magnesium Level 2.1 MG/DL (1.8-2.4) Total Bilirubin 0.5 MG/DL (0.2-1.0) Aspartate Amino Transf (AST/SGOT) 25 U/L (15-37) Alanine Aminotransferase (ALT/SGPT) 42 U/L (12-78) Alkaline Phosphatase 65 U/L (46-116) C-Reactive Protein, Quantitative 3.8 mg/dL (0.00-0.90) H Total Protein 4.9 G/DL (6.4-8.2) L Albumin 1.6 G/DL (3.4-5.0) L Globulin 3.3 g/dL Albumin/Globulin Ratio 0.5 (1.0-2.7) L Test 11/12/20 11:19 POC Whole Blood Glucose 164 MG/DL (74-106) H Current Medications Medications (Trade) Dose Ordered Sig/Manasa Route PRN Reason Start Time Stop Time Status Last Admin Dose Admin Acetaminophen (Tylenol) 500 mg Q4H PRN ORAL For Pain 11/01/20 01:00 12/01/20 00:59 11/01/20 18:50 Acetaminophen (Tylenol) 650 mg Q4H PRN RECTAL Temp >100.5 11/01/20 21:30 12/01/20 21:29 Allopurinol (Zyloprim) 200 mg DAILY ORAL 11/01/20 16:00 12/01/20 15:59 11/12/20 08:17 Amiodarone HCl (Cordarone) 200 mg DAILY ORAL 11/10/20 09:00 02/08/21 08:59 11/12/20 08:17 Chlorhexidine Gluconate (María Elena-Hex 2%) 1 applic DAILY@1999 TOPIC 11/04/20 20:00 02/02/21 19:59 11/11/20 20:15 Clonidine HCl (Catapres Tab) 0.1 mg Q4H PRN ORAL bp over 160 syst 10/31/20 17:45 01/29/21 17:44 11/01/20 09:20 Dexamethasone Sodium Phosphate (Decadron 10mg/ ml Inj) 6 mg DAILY IV 11/03/20 09:00 11/13/20 08:59 11/12/20 08:20 Dextrose (Dextrose 50%) 25 ml Q30M PRN IV Hypoglycemia 11/01/20 07:15 01/30/21 07:14 Dextrose (Dextrose 50%) 50 ml Q30M PRN IV Hypoglycemia 11/01/20 07:15 01/30/21 07:14 Diltiazem HCl (Cardizem Tab) 90 mg BID ORAL 11/07/20 10:15 12/02/20 17:59 11/12/20 08:18 Docusate Sodium (Colace) 100 mg TWICE A DAY ORAL 10/31/20 18:00 11/30/20 17:59 11/12/20 08:16 Ergocalciferol (Drisdol) 50,000 intlu ONCE ORAL 11/12/20 15:00 11/12/20 16:00 11/12/20 15:32 Haloperidol Lactate (Haldol) 5 mg Q6H PRN IM Agitation 11/06/20 21:30 12/21/20 21:29 11/09/20 02:40 Heparin Sodium/ Sodium Chloride (Heparin 1000 units/500ml Premix) 1,000 unit ONCE PRN IV radiology procedure 11/11/20 09:00 11/13/20 08:59 Insulin Aspart (NovoLOG) BEFORE MEALS AND HS SUBQ 11/01/20 11:30 01/30/21 11:29 11/12/20 11:29 Insulin Aspart (NovoLOG) 15 units NOVOTIAC SUBQ 11/12/20 11:50 01/30/21 11:49 Insulin Detemir (Levemir) 10 units BID SUBQ 11/12/20 11:45 01/30/21 08:59 11/12/20 11:48 Lidocaine HCl (Xylocaine 1% 30ml) 30 ml ONCE PRN INJ radiology procedure 11/11/20 09:00 11/13/20 08:59 Methimazole (Tapazole) 10 mg DAILY ORAL 11/03/20 09:00 12/03/20 08:59 11/12/20 08:18 Metoprolol Tartrate (Lopressor) 50 mg Q12HR ORAL 11/01/20 21:00 01/30/21 20:59 11/12/20 08:17 Ondansetron HCl (Zofran) 4 mg Q6H PRN IVP Nausea & Vomiting 11/07/20 16:30 12/07/20 16:29 11/07/20 17:28 Pantoprazole (Protonix) 40 mg BID ORAL 10/31/20 18:00 11/30/20 17:44 11/12/20 08:18 Sitagliptin Phosphate (Januvia) 25 mg ACBREAKFAST ORAL 11/06/20 06:30 12/06/20 06:29 11/12/20 07:14 Tamsulosin HCl (Flomax) 0.4 mg BID ORAL 11/03/20 12:00 12/03/20 11:59 11/12/20 08:17 Vitamin D (Vitamin D) 5,000 unit DAILY ORAL 11/13/20 09:00 12/13/20 08:59 Reji Connelly MD Nov 12, 2020 16:00
--- NOTE | 2020-11-12 16:14 | Cardiac Electrophysiology PN ---
Assessment/Plan Assessment/Plan 1. NSTEMI with troponin of 0.25 and 0.35 in this patient with DKA as well as atrial flutter with rapid ventricular response. On metoprolol 50 mg b.i.d. EF 65% 2. Atrial flutter with RVR On metoprolol 50 mg bid, Cardizem 90 bid and Amiodarone 200 po daily Eliquis held for hematuria 3. Diabetic ketoacidosis with glucose of more than 1000. 4. Accelerated hypertension. On Lopressor 50 bid and Cardizem 90 bid 5. COVID positive pneumonia. 6. Acute Renal failure in the setting of total CK of 1900, maybe rhabdomyolysis- induced renal failure. On HD via RFV Yazan by Dr. Buckley. RFV Yazan pulled out by patient. S/P New Yazan on 11/11/20 DW RN Subjective Subjective Pulled out his RFV Yazan catheter after HD 11/08/20. S/P new Yazan catheter placement 11/11/20 In restraints in covid isolation. On 2 liter NC. In SR on Amio, Cardizem and metoprolol. Off Eliquis due to hematuria Objective Last 24 Hour Vital Signs Date Time Temp Pulse Resp B/P (MAP) Pulse Ox O2 Delivery O2 Flow Rate FiO2 11/12/20 12:00 97.6 53 20 107/48 (67) 99 11/12/20 12:00 53 11/12/20 09:00 Nasal Cannula 4.0 11/12/20 08:18 62 134/53 11/12/20 08:17 62 134/53 11/12/20 08:00 62 11/12/20 08:00 97.4 62 20 134/53 (80) 99 11/12/20 04:00 51 11/12/20 04:00 97.0 59 18 127/56 (79) 98 11/12/20 00:00 58 11/12/20 00:00 97.6 61 18 107/54 (71) 94 11/11/20 21:00 Nasal Cannula 4.0 11/11/20 20:16 67 117/51 11/11/20 20:00 64 11/11/20 20:00 97.1 74 18 117/57 (77) 96 11/11/20 19:37 96 Nasal Cannula 2.0 28 11/11/20 17:19 78 117/59 Intake and Output 0 11/11/20 11/12/20 19:00 07:00 Intake Total 300 ml 360 ml Balance 300 ml 360 ml Intake Oral 300 ml Other 360 ml # Voids 2 2 # Bowel Movements 3 Laboratory Tests Test 11/11/20 16:28 11/11/20 16:30 11/12/20 04:00 11/12/20 05:03 POC Whole Blood Glucose 450 MG/DL (74-106) H 479 MG/DL (74-106) H Pending White Blood Count 10.7 K/UL (4.8-10.8) Red Blood Count 2.70 M/UL (4.70-6.10) L Hemoglobin 8.1 G/DL (14.2-18.0) L Hematocrit 24.3 % (42.0-52.0) L Mean Corpuscular Volume 90 FL (80-99) Mean Corpuscular Hemoglobin 30.1 PG (27.0-31.0) Mean Corpuscular Hemoglobin Concent 33.4 G/DL (32.0-36.0) Red Cell Distribution Width 13.0 % (11.6-14.8) Platelet Count 203 K/UL (150-450) Mean Platelet Volume 6.7 FL (6.5-10.1) Neutrophils (%) (Auto) % (45.0-75.0) Lymphocytes (%) (Auto) % (20.0-45.0) Monocytes (%) (Auto) % (1.0-10.0) Eosinophils (%) (Auto) % (0.0-3.0) Basophils (%) (Auto) % (0.0-2.0) Differential Total Cells Counted 100 Neutrophils % (Manual) 92 % (45-75) H Lymphocytes % (Manual) 4 % (20-45) L Monocytes % (Manual) 4 % (1-10) Eosinophils % (Manual) 0 % (0-3) Basophils % (Manual) 0 % (0-2) Band Neutrophils 0 % (0-8) Platelet Estimate Adequate Platelet Morphology Normal Hypochromasia 1+ Sodium Level 140 MMOL/L (136-145) Potassium Level 4.5 MMOL/L (3.5-5.1) Chloride Level 105 MMOL/L (98-107) Carbon Dioxide Level 29 MMOL/L (21-32) Anion Gap 6 mmol/L (5-15) Blood Urea Nitrogen 56 mg/dL (7-18) H Creatinine 3.0 MG/DL (0.55-1.30) H Estimat Glomerular Filtration Rate 20.4 mL/min (>60) Glucose Level 77 MG/DL (74-106) Uric Acid 5.7 MG/DL (2.6-7.2) Calcium Level 7.8 MG/DL (8.5-10.1) L Phosphorus Level 4.7 MG/DL (2.5-4.9) Magnesium Level 2.1 MG/DL (1.8-2.4) Total Bilirubin 0.5 MG/DL (0.2-1.0) Aspartate Amino Transf (AST/SGOT) 25 U/L (15-37) Alanine Aminotransferase (ALT/SGPT) 42 U/L (12-78) Alkaline Phosphatase 65 U/L (46-116) C-Reactive Protein, Quantitative 3.8 mg/dL (0.00-0.90) H Total Protein 4.9 G/DL (6.4-8.2) L Albumin 1.6 G/DL (3.4-5.0) L Globulin 3.3 g/dL Albumin/Globulin Ratio 0.5 (1.0-2.7) L Test 11/12/20 11:19 POC Whole Blood Glucose 164 MG/DL (74-106) H Objective HEAD AND NECK: Shows no JVD. LUNGS: Clear. CARDIOVASCULAR: Shows regular S1 and S2 with no gallop. ABDOMEN: Soft. EXTREMITIES: Right Femoral Yazan is pulled out. No pitting edema. Sivakumar Escalante MD Nov 12, 2020 16:14
--- NOTE | 2020-11-12 19:20 | NUR ---
NURSE HAND-OFF REPORT: Important Events on Shift:Pt still on restrains Patient Status: Stable Diet: Renal, puree Pending Orders: Pending Results/Labs: Pending MD notification: Latest Vital Signs: Temperature 97.4 , Pulse 54 , B/P 100 /49 , Respiratory Rate 20 , O2 SAT 99 , Nasal Cannula, O2 Flow Rate 4.0 . Vital Sign Comment: EKG Rhythm: Sinus Rhythm Rhythm change?: N MD Notified?: Amari MCQUEEN MD Response: Message left await call Latest Bhat Fall Score: 60 Fall Risk: High Risk Safety Measures: Call light Within Reach, Bed Alarm Zone 1, Side Rails Side Rails x3, Bed position Low and Locked. Fall Precautions: Yellow Socks Report given to Gho/RN.
--- NOTE | 2020-11-12 19:20 | NUR ---
NURSE NOTES: Receive a report from ARPITA Pandey. Round is made. Pt is awake and watching TV. No acute distress noted. No respiratory distress noted. Denies any pain. On soft restraint bilateral wrists. Skin/ sensory/ motor intact. IJ on right side intact. Provide fall precautions. Call light within reach. Will continue to monitor.
--- NOTE | 2020-11-12 19:40 | NUR ---
NURSE NOTES: Provide bed for BM but did not pass BM yet. Will continue to monitor. Reinforce bilateral restraints.
[2020-11-12 20:00] VITALS: BP 108/60
[2020-11-12] MEDS: Dyna-Hex 2% Top Sol 2oz TOPIC SCH (20:22)
--- NOTE | 2020-11-12 20:45 | NUR ---
NURSE NOTES: Internal Jugular central line on right site dressing changed d/t peeling off from the skin. Site is clean and intact. Re-educate pt to not to pull out. Will continue to monitor closely.
--- NOTE | 2020-11-12 21:44 | General Progress Note ---
Subjective ROS Limited/Unobtainable: Yes Allergies: Coded Allergies: No Known Allergies (Unverified , 10/31/20) Objective Last 24 Hour Vital Signs Date Time Temp Pulse Resp B/P (MAP) Pulse Ox O2 Delivery O2 Flow Rate FiO2 11/12/20 20:23 62 108/50 11/12/20 20:16 97 Nasal Cannula 2.0 28 11/12/20 20:00 60 11/12/20 17:58 54 100/49 11/12/20 16:00 97.4 54 20 100/49 (66) 99 11/12/20 16:00 65 11/12/20 12:00 97.6 53 20 107/48 (67) 99 11/12/20 12:00 53 11/12/20 09:00 Nasal Cannula 4.0 11/12/20 08:18 62 134/53 11/12/20 08:17 62 134/53 11/12/20 08:00 62 11/12/20 08:00 97.4 62 20 134/53 (80) 99 11/12/20 04:00 51 11/12/20 04:00 97.0 59 18 127/56 (79) 98 11/12/20 00:00 58 11/12/20 00:00 97.6 61 18 107/54 (71) 94 Intake and Output 11/11/20 11/12/20 19:00 07:00 Intake Total 300 ml 360 ml Balance 300 ml 360 ml Intake Oral 300 ml Other 360 ml # Voids 2 2 # Bowel Movements 3 Laboratory Tests 11/12/20 04:00: White Blood Count 10.7, Red Blood Count 2.70L, Hemoglobin 8.1L, Hematocrit 24.3L , Mean Corpuscular Volume 90, Mean Corpuscular Hemoglobin 30.1, Mean Corpuscular Hemoglobin Concent 33.4, Red Cell Distribution Width 13.0, Platelet Count 203, Mean Platelet Volume 6.7, Neutrophils (%) (Auto) , Lymphocytes (%) (Auto) , Monocytes (%) (Auto) , Eosinophils (%) (Auto) , Basophils (%) (Auto) , Differential Total Cells Counted 100, Neutrophils % (Manual) 92H, Lymphocytes % (Manual) 4L, Monocytes % (Manual) 4, Eosinophils % (Manual) 0, Basophils % (Manual) 0, Band Neutrophils 0, Platelet Estimate Adequate, Platelet Morphology Normal, Hypochromasia 1+, Sodium Level 140, Potassium Level 4.5, Chloride Level 105, Carbon Dioxide Level 29, Anion Gap 6, Blood Urea Nitrogen 56H, Creatinine 3.0H, Estimat Glomerular Filtration Rate 20.4, Glucose Level 77, Uric Acid 5.7, Calcium Level 7.8L, Phosphorus Level 4.7, Magnesium Level 2.1, Total Bilirubin 0.5, Aspartate Amino Transf (AST/SGOT) 25, Alanine Aminotransferase (ALT/SGPT) 42, Alkaline Phosphatase 65, C-Reactive Protein, Quantitative 3.8H, Total Protein 4.9L, Albumin 1.6L, Globulin 3.3, Albumin/Globulin Ratio 0.5L 11/12/20 05:03: POC Whole Blood Glucose [Pending] 11/12/20 11:19: POC Whole Blood Glucose 164H 11/12/20 16:46: POC Whole Blood Glucose 146H 11/12/20 20:27: POC Whole Blood Glucose 109H Height (Feet): 5 Height (Inches): 5.00 Weight (Pounds): 150 Assessment/Plan Problem List: (1) Renal failure (ARF), acute on chronic ICD Codes: N17.9 - Acute kidney failure, unspecified; N18.9 - Chronic kidney disease, unspecified SNOMED: 092595227 (2) DKA (diabetic ketoacidoses) ICD Codes: E11.10 - Type 2 diabetes mellitus with ketoacidosis without coma SNOMED: 293422819, 22926739 (3) COVID-19 virus infection ICD Codes: U07.1 - COVID-19 SNOMED: 337476757 (4) Rhabdomyolysis ICD Codes: M62.82 - Rhabdomyolysis SNOMED: 898578935 (5) Diabetes mellitus out of control ICD Codes: E11.65 - Type 2 diabetes mellitus with hyperglycemia SNOMED: 03726236, 903642279 (6) Abnormal thyroid blood test ICD Codes: R79.89 - Other specified abnormal findings of blood chemistry SNOMED: 640106244, [id number] (7) NSTEMI (non-ST elevated myocardial infarction) ICD Codes: I21.4 - Non-ST elevation (NSTEMI) myocardial infarction SNOMED: 37094400 Status: progressing, unchanged Assessment/Plan: covid + dka resolved esrd diabetic anemia nstemi reviewed chart dehydration check sugar Corey Soto MD Nov 12, 2020 21:44
--- NOTE | 2020-11-12 23:42 | Psychiatric Progress Note ---
Psychiatry Progress Note Psychiatry Progress Note Medications Current Medications Medications (Trade) Dose Ordered Sig/Manasa Route PRN Reason Start Time Stop Time Status Last Admin Dose Admin Acetaminophen (Tylenol) 500 mg Q4H PRN ORAL For Pain 11/01/20 01:00 12/01/20 00:59 11/01/20 18:50 Acetaminophen (Tylenol) 650 mg Q4H PRN RECTAL Temp >100.5 11/01/20 21:30 12/01/20 21:29 Allopurinol (Zyloprim) 200 mg DAILY ORAL 11/01/20 16:00 12/01/20 15:59 11/12/20 08:17 Amiodarone HCl (Cordarone) 200 mg DAILY ORAL 11/10/20 09:00 02/08/21 08:59 11/12/20 08:17 Chlorhexidine Gluconate (María Elena-Hex 2%) 1 applic DAILY@1999 TOPIC 11/04/20 20:00 02/02/21 19:59 11/12/20 20:22 Clonidine HCl (Catapres Tab) 0.1 mg Q4H PRN ORAL bp over 160 syst 10/31/20 17:45 01/29/21 17:44 11/01/20 09:20 Dexamethasone Sodium Phosphate (Decadron 10mg/ ml Inj) 6 mg DAILY IV 11/03/20 09:00 11/13/20 08:59 11/12/20 08:20 Dextrose (Dextrose 50%) 25 ml Q30M PRN IV Hypoglycemia 11/01/20 07:15 01/30/21 07:14 Dextrose (Dextrose 50%) 50 ml Q30M PRN IV Hypoglycemia 11/01/20 07:15 01/30/21 07:14 Diltiazem HCl (Cardizem Tab) 90 mg BID ORAL 11/07/20 10:15 12/02/20 17:59 11/12/20 08:18 Docusate Sodium (Colace) 100 mg TWICE A DAY ORAL 10/31/20 18:00 11/30/20 17:59 11/12/20 17:58 Haloperidol Lactate (Haldol) 5 mg Q6H PRN IM Agitation 11/06/20 21:30 12/21/20 21:29 11/09/20 02:40 Heparin Sodium/ Sodium Chloride (Heparin 1000 units/500ml Premix) 1,000 unit ONCE PRN IV radiology procedure 11/11/20 09:00 11/13/20 08:59 Insulin Aspart (NovoLOG) BEFORE MEALS AND HS SUBQ 11/01/20 11:30 01/30/21 11:29 11/12/20 16:52 Insulin Aspart (NovoLOG) 15 units NOVOTIAC SUBQ 11/12/20 11:50 01/30/21 11:49 11/12/20 16:53 Insulin Detemir (Levemir) 10 units BID SUBQ 11/12/20 11:45 01/30/21 08:59 11/12/20 18:00 Lidocaine HCl (Xylocaine 1% 30ml) 30 ml ONCE PRN INJ radiology procedure 11/11/20 09:00 11/13/20 08:59 Methimazole (Tapazole) 10 mg DAILY ORAL 11/03/20 09:00 12/03/20 08:59 11/12/20 08:18 Metoprolol Tartrate (Lopressor) 50 mg Q12HR ORAL 11/01/20 21:00 01/30/21 20:59 11/12/20 20:23 Ondansetron HCl (Zofran) 4 mg Q6H PRN IVP Nausea & Vomiting 11/07/20 16:30 12/07/20 16:29 11/07/20 17:28 Pantoprazole (Protonix) 40 mg BID ORAL 10/31/20 18:00 11/30/20 17:44 11/12/20 17:58 Sitagliptin Phosphate (Januvia) 25 mg ACBREAKFAST ORAL 11/06/20 06:30 12/06/20 06:29 11/12/20 07:14 Tamsulosin HCl (Flomax) 0.4 mg BID ORAL 11/03/20 12:00 12/03/20 11:59 11/12/20 17:58 Vitamin D (Vitamin D) 5,000 unit DAILY ORAL 11/13/20 09:00 12/13/20 08:59 Neurological/Psychiatric: Reports: anxiety, depressed, emotional problems Allergies: Coded Allergies: No Known Allergies (Unverified , 10/31/20) Objective Data Height (Feet): 5 Height (Inches): 5.00 Weight (Pounds): 150 General Appearance: no apparent distress Additional Comments: The patient is confused, disoriented, Yoruba-speaking. Mood is agitated. Affect is flat. Thought process disorganized. Thought content, no suicidal, homicidal ideation. Cognition is impaired. Insight and judgment is impaired. ASSESSMENT: [place] I Acute toxic encephalopathy. Dementia. [place] II Deferred. [place] III COVID-19. [place] IV Low. [place] V 20 PLAN: 1. We will start the patient on soft restraints. 2. Continue to follow and readjust the meds. Assessment/Plan Status: progressing, unchanged Brigido Singh MD Nov 12, 2020 23:42
[2020-11-13] VITALS: BP 110/52
[2020-11-13 04:00] VITALS: BP 133/58
[2020-11-13] MEDS: NovoLOG Insulin Flexpen SUBQ SCH ×7 (06:30→20:43)
[2020-11-13] MEDS: sitaGLIPtin 25mg tab ORAL SCH (06:57)
--- NOTE | 2020-11-13 07:30 | NUR ---
NURSE HAND-OFF REPORT: Important Events on Shift: BMx1, No acute distress noted. IJ on right side kept intact. Patient Status: [stable] Diet: [] Pending Orders: [] Pending Results/Labs:[] Pending MD notification:[] Latest Vital Signs: Temperature 97.5 , Pulse 55 , B/P 133 /58 , Respiratory Rate 16 , O2 SAT 96 , Nasal Cannula, O2 Flow Rate 2.0 . Vital Sign Comment: [] EKG Rhythm: Sinus Bradycardia Rhythm change?: N Notified?: Amari MCQUEEN MD Response: Message left await call Latest Bhat Fall Score: 60 Fall Risk: High Risk Safety Measures: Call light Within Reach, Bed Alarm Zone 1, Side Rails Side Rails x3, Bed position Low and Locked. Fall Precautions: Yellow Socks Yellow Gown Door Sign Patient Fall Education Report given to ARPITA Pandey.
--- NOTE | 2020-11-13 07:44 | NUR ---
NURSE NOTES: Received report from Gho/RN. Pt in bed sleeping, on 2L nasal cannula, no distress or SOB noted. Pt is on restrains, will monitor q2hr. Dialysis patient, IJ in right side, triple lumen for dialysis. IV on left hand 22G, SL, patent and clean. Bed in the lowest position and locked, call light within reach. Side rail up X3. Will continue plan of care.
[2020-11-13 07:51] LABS: HEMATOCRIT 25.3 % (42.0-52.0); HEMOGLOBIN 8.4 G/DL (14.2-18.0); MEAN CORPUSCULAR VOLUME 90 FL (80-99); PLATELET COUNT 242 K/UL (150-450); RED BLOOD COUNT 2.81 M/UL (4.70-6.10); RED CELL DISTRIBUTION WIDTH 12.9 % (11.6-14.8); WHITE BLOOD COUNT 10.4 K/UL (4.8-10.8)
[2020-11-13 08:00] VITALS: BP 113/58
[2020-11-13 08:11] LABS: ALBUMIN 1.7 G/DL (3.4-5.0); ALBUMIN/GLOBULIN RATIO 0.5 (1.0-2.7); BILIRUBIN,TOTAL 0.4 MG/DL (0.2-1.0); CALCIUM 7.8 MG/DL (8.5-10.1); CREATININE 3.2 MG/DL (0.55-1.30); PHOSPHORUS 4.5 MG/DL (2.5-4.9); POTASSIUM 4.3 MMOL/L (3.5-5.1)
--- NOTE | 2020-11-13 08:36 | Pulmonology Progress Note ---
Subjective ROS Limited/Unobtainable: Yes Interval Events: none major reported per nursing Constitutional: Denies: fever Gastrointestinal/Abdominal: Reports: diarrhea - C. diff negative Psychiatric: Reports: other - on restraint Allergies: Coded Allergies: No Known Allergies (Unverified , 10/31/20) Objective Last 24 Hour Vital Signs Date Time Temp Pulse Resp B/P (MAP) Pulse Ox O2 Delivery O2 Flow Rate FiO2 11/13/20 08:00 97.4 65 19 113/58 (76) 99 11/13/20 04:00 97.5 60 16 133/58 (83) 96 11/13/20 04:00 55 11/13/20 00:00 97.5 54 16 110/52 (71) 97 11/13/20 00:00 54 11/12/20 21:00 Nasal Cannula 2.0 11/12/20 20:23 62 108/50 11/12/20 20:16 97 Nasal Cannula 2.0 28 11/12/20 20:00 97.6 60 16 108/60 (76) 96 11/12/20 20:00 60 11/12/20 17:58 54 100/49 11/12/20 16:00 97.4 54 20 100/49 (66) 99 11/12/20 16:00 65 11/12/20 12:00 97.6 53 20 107/48 (67) 99 11/12/20 12:00 53 11/12/20 09:00 Nasal Cannula 4.0 Intake and Output 11/12/20 11/13/20 19:00 07:00 Intake Total 840 ml 350 ml Output Total 750 ml 800 ml Balance 90 ml -450 ml Intake Oral 840 ml 350 ml Output Urine Total 750 ml 800 ml # Bowel Movements 1 Objective now saturating at 97% on2L NC General Appearance: WD/WN, no acute distress HEENT: atraumatic Respiratory: chest wall non-tender Cardiovascular: normal rate, regular rhythm Abdomen: soft, non tender Laboratory Tests 11/12/20 11:19: POC Whole Blood Glucose 164H 11/12/20 16:46: POC Whole Blood Glucose 146H 11/12/20 20:27: POC Whole Blood Glucose 109H 11/13/20 05:42: POC Whole Blood Glucose 76 11/13/20 06:05: White Blood Count 10.4, Red Blood Count 2.81L, Hemoglobin 8.4L, Hematocrit 25.3L , Mean Corpuscular Volume 90, Mean Corpuscular Hemoglobin 30.0, Mean Corpuscular Hemoglobin Concent 33.3, Red Cell Distribution Width 12.9, Platelet Count 242, Mean Platelet Volume 6.7, Neutrophils (%) (Auto) , Lymphocytes (%) (Auto) , Monocytes (%) (Auto) , Eosinophils (%) (Auto) , Basophils (%) (Auto) , Neutrophils % (Manual) [Pending], Lymphocytes % (Manual) [Pending], Platelet Estimate [Pending], Platelet Morphology [Pending], Sodium Level 137, Potassium Level 4.3, Chloride Level 102, Carbon Dioxide Level 28, Anion Gap 7, Blood Urea Nitrogen 58H, Creatinine 3.2H, Estimat Glomerular Filtration Rate 19.0, Glucose Level 82, Calcium Level 7.8L, Phosphorus Level 4.5, Total Bilirubin 0.4, Aspartate Amino Transf (AST/SGOT) 20, Alanine Aminotransferase (ALT/SGPT) 38, Alkaline Phosphatase 68, C-Reactive Protein, Quantitative 1.9H, Total Protein 5.2L, Albumin 1.7L, Globulin 3.5, Albumin/Globulin Ratio 0.5L Current Medications Medications (Trade) Dose Ordered Sig/Manasa Route PRN Reason Start Time Stop Time Status Last Admin Dose Admin Acetaminophen (Tylenol) 500 mg Q4H PRN ORAL For Pain 11/01/20 01:00 12/01/20 00:59 11/01/20 18:50 Acetaminophen (Tylenol) 650 mg Q4H PRN RECTAL Temp >100.5 11/01/20 21:30 12/01/20 21:29 Allopurinol (Zyloprim) 200 mg DAILY ORAL 11/01/20 16:00 12/01/20 15:59 11/12/20 08:17 Amiodarone HCl (Cordarone) 200 mg DAILY ORAL 11/10/20 09:00 02/08/21 08:59 11/12/20 08:17 Chlorhexidine Gluconate (María Elena-Hex 2%) 1 applic DAILY@1999 TOPIC 11/04/20 20:00 02/02/21 19:59 11/12/20 20:22 Clonidine HCl (Catapres Tab) 0.1 mg Q4H PRN ORAL bp over 160 syst 10/31/20 17:45 01/29/21 17:44 11/01/20 09:20 Dexamethasone Sodium Phosphate (Decadron 10mg/ ml Inj) 6 mg DAILY IV 11/03/20 09:00 11/13/20 08:59 11/12/20 08:20 Dextrose (Dextrose 50%) 25 ml Q30M PRN IV Hypoglycemia 11/01/20 07:15 01/30/21 07:14 Dextrose (Dextrose 50%) 50 ml Q30M PRN IV Hypoglycemia 11/01/20 07:15 01/30/21 07:14 Diltiazem HCl (Cardizem Tab) 90 mg BID ORAL 11/07/20 10:15 12/02/20 17:59 11/12/20 08:18 Docusate Sodium (Colace) 100 mg TWICE A DAY ORAL 10/31/20 18:00 11/30/20 17:59 11/12/20 17:58 Haloperidol Lactate (Haldol) 5 mg Q6H PRN IM Agitation 11/06/20 21:30 12/21/20 21:29 11/09/20 02:40 Heparin Sodium/ Sodium Chloride (Heparin 1000 units/500ml Premix) 1,000 unit ONCE PRN IV radiology procedure 11/11/20 09:00 11/13/20 08:59 Insulin Aspart (NovoLOG) BEFORE MEALS AND HS SUBQ 11/01/20 11:30 01/30/21 11:29 11/12/20 16:52 Insulin Aspart (NovoLOG) 15 units NOVOTIAC SUBQ 11/12/20 11:50 01/30/21 11:49 11/12/20 16:53 Insulin Detemir (Levemir) 10 units BID SUBQ 11/12/20 11:45 01/30/21 08:59 11/12/20 18:00 Lidocaine HCl (Xylocaine 1% 30ml) 30 ml ONCE PRN INJ radiology procedure 11/11/20 09:00 11/13/20 08:59 Methimazole (Tapazole) 10 mg DAILY ORAL 11/03/20 09:00 12/03/20 08:59 11/12/20 08:18 Metoprolol Tartrate (Lopressor) 50 mg Q12HR ORAL 11/01/20 21:00 01/30/21 20:59 11/12/20 20:23 Ondansetron HCl (Zofran) 4 mg Q6H PRN IVP Nausea & Vomiting 11/07/20 16:30 12/07/20 16:29 11/07/20 17:28 Pantoprazole (Protonix) 40 mg BID ORAL 10/31/20 18:00 11/30/20 17:44 11/12/20 17:58 Sitagliptin Phosphate (Januvia) 25 mg ACBREAKFAST ORAL 11/06/20 06:30 12/06/20 06:29 11/13/20 06:57 Tamsulosin HCl (Flomax) 0.4 mg BID ORAL 11/03/20 12:00 12/03/20 11:59 11/12/20 17:58 Vitamin D (Vitamin D) 5,000 unit DAILY ORAL 11/13/20 09:00 12/13/20 08:59 Assessment/Plan Assessment/Plan 1. Non-ST elevation myocardial infarction. - cardiology following 2. Diabetic ketoacidosis - seen by endocrinology - continue fluids - on insulin 3. Atrial flutter with rapid ventricular response. - Continue metoprolol 50 mg b.i.d. 4. COVID positive pneumonia. - on Decadron (11/03-) - Supplemental O2 - saturating at 97% on 2L NC; will wean off today - CXR 11/04 developing b/l infilitrates 5. Renal failure - nephrology following - pt pulled out femoral HD cath, new IJ yesterday 6. Accelerated hypertension. 7. Hyperthyroidism - Dr. Tamez following 8. Diarrhea - C. diff negative DVT ppx - Lovenox The care for this patient was discussed with my supervising physician Time spent for this case was approximately 31 minutes Singh Buchanan Nov 13, 2020 08:36
[2020-11-13] MEDS: Levemir Flexpen SUBQ SCH ×2 (08:37→20:42)
[2020-11-13] MEDS: dilTIAZem HCl 90mg tab ORAL SCH ×2 (08:40→17:12)
[2020-11-13] MEDS: Vitamin D 1000 units Tab ORAL SCH (08:41)
[2020-11-13] MEDS: Allopurinol 100mg Tab ORAL SCH (08:41)
[2020-11-13] MEDS: Docusate 100mg cap ORAL SCH ×2 (08:41→17:11)
[2020-11-13] MEDS: Metoprolol Tartrate 50mg tab ORAL SCH ×2 (08:42→20:33)
[2020-11-13] MEDS: Amiodarone 200mg tab ORAL SCH (08:42)
[2020-11-13] MEDS: methIMAzole 10mg tab ORAL SCH (08:42)
[2020-11-13] MEDS: Tamsulosin 0.4mg cap ORAL SCH ×2 (08:43→17:10)
[2020-11-13 12:00] VITALS: BP 114/51
--- NOTE | 2020-11-13 12:02 | General Progress Note ---
Subjective ROS Limited/Unobtainable: Yes Allergies: Coded Allergies: No Known Allergies (Unverified , 10/31/20) Subjective events noted interval notes reviewed glucose values are labile no longer on dex insulin requirement diminished Item Value Date Time Bedside Blood Glucose 366 mg/dl H 11/13/20 1138 Bedside Blood Glucose 76 mg/dl 11/13/20 0837 Bedside Blood Glucose 76 mg/dl 11/13/20 0646 Bedside Blood Glucose 109 mg/dl 11/12/20 2038 Bedside Blood Glucose 146 mg/dl H 11/12/20 1800 Bedside Blood Glucose 162 mg/dl H 11/12/20 1150 Bedside Blood Glucose 92 mg/dl 11/12/20 0819 Objective Last 24 Hour Vital Signs Date Time Temp Pulse Resp B/P (MAP) Pulse Ox O2 Delivery O2 Flow Rate FiO2 11/13/20 09:00 Room Air 11/13/20 08:42 65 113/58 11/13/20 08:40 65 113/58 11/13/20 08:00 97.4 65 19 113/58 (76) 99 11/13/20 08:00 69 11/13/20 04:00 97.5 60 16 133/58 (83) 96 11/13/20 04:00 55 11/13/20 00:00 97.5 54 16 110/52 (71) 97 11/13/20 00:00 54 11/12/20 21:00 Nasal Cannula 2.0 11/12/20 20:23 62 108/50 11/12/20 20:16 97 Nasal Cannula 2.0 28 11/12/20 20:00 97.6 60 16 108/60 (76) 96 11/12/20 20:00 60 11/12/20 17:58 54 100/49 11/12/20 16:00 97.4 54 20 100/49 (66) 99 11/12/20 16:00 65 Intake and Output 11/12/20 11/13/20 19:00 07:00 Intake Total 840 ml 350 ml Output Total 750 ml 800 ml Balance 90 ml -450 ml Intake Oral 840 ml 350 ml Output Urine Total 750 ml 800 ml # Bowel Movements 1 Laboratory Tests 11/12/20 16:46: POC Whole Blood Glucose 146H 11/12/20 20:27: POC Whole Blood Glucose 109H 11/13/20 05:42: POC Whole Blood Glucose 76 1/17/21 06:05: White Blood Count 10.4, Red Blood Count 2.81L, Hemoglobin 8.4L, Hematocrit 25.3L , Mean Corpuscular Volume 90, Mean Corpuscular Hemoglobin 30.0, Mean Corpuscular Hemoglobin Concent 33.3, Red Cell Distribution Width 12.9, Platelet Count 242, Mean Platelet Volume 6.7, Neutrophils (%) (Auto) , Lymphocytes (%) (Auto) , Monocytes (%) (Auto) , Eosinophils (%) (Auto) , Basophils (%) (Auto) , Differential Total Cells Counted 100, Neutrophils % (Manual) 94H, Lymphocytes % (Manual) 4L, Monocytes % (Manual) 2, Eosinophils % (Manual) 0, Basophils % (Manual) 0, Band Neutrophils 0, Platelet Estimate Adequate, Platelet Morphology Normal, Hypochromasia 1+, Sodium Level 137, Potassium Level 4.3, Chloride Level 102, Carbon Dioxide Level 28, Anion Gap 7, Blood Urea Nitrogen 58H, Creatinine 3.2H, Estimat Glomerular Filtration Rate 19.0, Glucose Level 82, Calcium Level 7.8L, Phosphorus Level 4.5, Total Bilirubin 0.4, Aspartate Amino Transf (AST/SGOT) 20, Alanine Aminotransferase (ALT/SGPT) 38, Alkaline Phosphatase 68, C-Reactive Protein, Quantitative 1.9H, Total Protein 5.2L, Albumin 1.7L, Globulin 3.5, Albumin/Globulin Ratio 0.5L 11/13/20 11:04: POC Whole Blood Glucose 366H Height (Feet): 5 Height (Inches): 5.00 Weight (Pounds): 150 Objective Current Medications Medications (Trade) Dose Ordered Sig/Manasa Route PRN Reason Start Time Stop Time Status Last Admin Dose Admin Acetaminophen (Tylenol) 500 mg Q4H PRN ORAL For Pain 11/01/20 01:00 12/01/20 00:59 11/01/20 18:50 Acetaminophen (Tylenol) 650 mg Q4H PRN RECTAL Temp >100.5 11/01/20 21:30 12/01/20 21:29 Allopurinol (Zyloprim) 200 mg DAILY ORAL 11/01/20 16:00 12/01/20 15:59 11/13/20 08:41 Amiodarone HCl (Cordarone) 200 mg DAILY ORAL 11/10/20 09:00 02/08/21 08:59 11/13/20 08:42 Chlorhexidine Gluconate (María Elena-Hex 2%) 1 applic DAILY@1999 TOPIC 11/04/20 20:00 02/02/21 19:59 11/12/20 20:22 Clonidine HCl (Catapres Tab) 0.1 mg Q4H PRN ORAL bp over 160 syst 10/31/20 17:45 01/29/21 17:44 11/01/20 09:20 Dextrose (Dextrose 50%) 25 ml Q30M PRN IV Hypoglycemia 11/01/20 07:15 01/30/21 07:14 Dextrose (Dextrose 50%) 50 ml Q30M PRN IV Hypoglycemia 11/01/20 07:15 01/30/21 07:14 Diltiazem HCl (Cardizem Tab) 90 mg BID ORAL 11/07/20 10:15 12/02/20 17:59 11/13/20 08:40 Docusate Sodium (Colace) 100 mg TWICE A DAY ORAL 10/31/20 18:00 11/30/20 17:59 11/13/20 08:41 Haloperidol Lactate (Haldol) 5 mg Q6H PRN IM Agitation 11/06/20 21:30 12/21/20 21:29 11/09/20 02:40 Insulin Aspart (NovoLOG) BEFORE MEALS AND HS SUBQ 11/01/20 11:30 01/30/21 11:29 11/13/20 11:37 Insulin Aspart (NovoLOG) 15 units NOVOTIAC SUBQ 11/12/20 11:50 01/30/21 11:49 11/13/20 11:38 Insulin Detemir (Levemir) 10 units BID SUBQ 11/12/20 11:45 01/30/21 08:59 11/12/20 18:00 Methimazole (Tapazole) 10 mg DAILY ORAL 11/03/20 09:00 12/03/20 08:59 11/13/20 08:42 Metoprolol Tartrate (Lopressor) 50 mg Q12HR ORAL 11/01/20 21:00 01/30/21 20:59 11/13/20 08:42 Ondansetron HCl (Zofran) 4 mg Q6H PRN IVP Nausea & Vomiting 11/07/20 16:30 12/07/20 16:29 11/07/20 17:28 Pantoprazole (Protonix) 40 mg BID ORAL 10/31/20 18:00 11/30/20 17:44 11/13/20 08:42 Sitagliptin Phosphate (Januvia) 25 mg ACBREAKFAST ORAL 11/06/20 06:30 12/06/20 06:29 11/13/20 06:57 Tamsulosin HCl (Flomax) 0.4 mg BID ORAL 11/03/20 12:00 12/03/20 11:59 11/13/20 08:43 Vitamin D (Vitamin D) 5,000 unit DAILY ORAL 11/13/20 09:00 12/13/20 08:59 11/13/20 08:41 Assessment/Plan Problem List: (1) Abnormal thyroid blood test ICD Codes: R79.89 - Other specified abnormal findings of blood chemistry SNOMED: 870080299, [id number] (2) Diabetes mellitus out of control ICD Codes: E11.65 - Type 2 diabetes mellitus with hyperglycemia SNOMED: 43471700, 782985511 (3) Renal failure (ARF), acute on chronic ICD Codes: N17.9 - Acute kidney failure, unspecified; N18.9 - Chronic kidney disease, unspecified SNOMED: 436803480 (4) COVID-19 virus infection ICD Codes: U07.1 - COVID-19 SNOMED: 031701314 (5) DKA (diabetic ketoacidoses) ICD Codes: E11.10 - Type 2 diabetes mellitus with ketoacidosis without coma SNOMED: 645114134, 40754396 (6) NSTEMI (non-ST elevated myocardial infarction) ICD Codes: I21.4 - Non-ST elevation (NSTEMI) myocardial infarction SNOMED: 63135564 Status: progressing, unchanged Assessment/Plan: reduce Levemir to 10 units qhs redue Novolog to 10 units ac tid continue Novolog sliding scale ac hs continue Januvia 25 mg daily continue Tapazole 10 mg daily TSI pending Markus Tamez MD Nov 13, 2020 12:02
--- NOTE | 2020-11-13 13:36 | Surgery Progress Note ---
Surgery Progress Note Subjective Procedure Performed Right femoral temporary hemodialysis catheter insertion Symptoms: improved Additional Comments Pt in bed sleeping, on 2L nasal cannula, no distress or SOB noted. Pt is on restrains Objective Last 24 Hour Vital Signs Date Time Temp Pulse Resp B/P (MAP) Pulse Ox O2 Delivery O2 Flow Rate FiO2 11/13/20 12:00 97.6 58 19 114/51 (72) 93 11/13/20 12:00 56 11/13/20 09:00 Room Air 11/13/20 08:42 65 113/58 11/13/20 08:40 65 113/58 11/13/20 08:00 97.4 65 19 113/58 (76) 99 11/13/20 08:00 69 11/13/20 04:00 97.5 60 16 133/58 (83) 96 11/13/20 04:00 55 11/13/20 00:00 97.5 54 16 110/52 (71) 97 11/13/20 00:00 54 11/12/20 21:00 Nasal Cannula 2.0 11/12/20 20:23 62 108/50 11/12/20 20:16 97 Nasal Cannula 2.0 28 11/12/20 20:00 97.6 60 16 108/60 (76) 96 11/12/20 20:00 60 11/12/20 17:58 54 100/49 11/12/20 16:00 97.4 54 20 100/49 (66) 99 11/12/20 16:00 65 I&O Intake and Output 11/12/20 11/13/20 19:00 07:00 Intake Total 840 ml 350 ml Output Total 750 ml 800 ml Balance 90 ml -450 ml Intake Oral 840 ml 350 ml Output Urine Total 750 ml 800 ml # Bowel Movements 1 Dressing: saturated Cardiovascular: RSR Respiratory: decreased breath sounds Abdomen: soft, flat, non-tender, present bowel sounds Extremities: no edema, no tenderness, no cyanosis Laboratory Tests Test 11/12/20 16:46 11/12/20 20:27 11/13/20 05:42 11/13/20 06:05 POC Whole Blood Glucose 146 MG/DL (74-106) H 109 MG/DL (74-106) H 76 MG/DL (74-106) White Blood Count 10.4 K/UL (4.8-10.8) Red Blood Count 2.81 M/UL (4.70-6.10) L Hemoglobin 8.4 G/DL (14.2-18.0) L Hematocrit 25.3 % (42.0-52.0) L Mean Corpuscular Volume 90 FL (80-99) Mean Corpuscular Hemoglobin 30.0 PG (27.0-31.0) Mean Corpuscular Hemoglobin Concent 33.3 G/DL (32.0-36.0) Red Cell Distribution Width 12.9 % (11.6-14.8) Platelet Count 242 K/UL (150-450) Mean Platelet Volume 6.7 FL (6.5-10.1) Neutrophils (%) (Auto) % (45.0-75.0) Lymphocytes (%) (Auto) % (20.0-45.0) Monocytes (%) (Auto) % (1.0-10.0) Eosinophils (%) (Auto) % (0.0-3.0) Basophils (%) (Auto) % (0.0-2.0) Differential Total Cells Counted 100 Neutrophils % (Manual) 94 % (45-75) H Lymphocytes % (Manual) 4 % (20-45) L Monocytes % (Manual) 2 % (1-10) Eosinophils % (Manual) 0 % (0-3) Basophils % (Manual) 0 % (0-2) Band Neutrophils 0 % (0-8) Platelet Estimate Adequate Platelet Morphology Normal Hypochromasia 1+ Sodium Level 137 MMOL/L (136-145) Potassium Level 4.3 MMOL/L (3.5-5.1) Chloride Level 102 MMOL/L (98-107) Carbon Dioxide Level 28 MMOL/L (21-32) Anion Gap 7 mmol/L (5-15) Blood Urea Nitrogen 58 mg/dL (7-18) H Creatinine 3.2 MG/DL (0.55-1.30) H Estimat Glomerular Filtration Rate 19.0 mL/min (>60) Glucose Level 82 MG/DL (74-106) Calcium Level 7.8 MG/DL (8.5-10.1) L Phosphorus Level 4.5 MG/DL (2.5-4.9) Total Bilirubin 0.4 MG/DL (0.2-1.0) Aspartate Amino Transf (AST/SGOT) 20 U/L (15-37) Alanine Aminotransferase (ALT/SGPT) 38 U/L (12-78) Alkaline Phosphatase 68 U/L (46-116) C-Reactive Protein, Quantitative 1.9 mg/dL (0.00-0.90) H Total Protein 5.2 G/DL (6.4-8.2) L Albumin 1.7 G/DL (3.4-5.0) L Globulin 3.5 g/dL Albumin/Globulin Ratio 0.5 (1.0-2.7) L Test 11/13/20 11:04 POC Whole Blood Glucose 366 MG/DL (74-106) H Plan Problems: (1) DKA (diabetic ketoacidoses) (2) Renal failure (ARF), acute on chronic (3) COVID-19 virus infection Assessment & Plan: 75-year-old male Covid positive renal insufficiency recently had temporary dialysis catheter placement develop leukocytosis soon after. Vitals noted. Exam stable. Catheter was evaluated no acute active inflammatory or infectious process identified. Catheter is clean dry intact. The dressings are not saturated. There is no active bleeding identified. There is no signs of active infection. Leukocytosis anterior collated to medications currently given for COVID-19 infection. Will monitor closely to ensure no active development of infection or related to catheter placement. Thank you for let me participate patient's care will follow with recommendations trend leukocytosis cont dressings cont care plan as noted cont HD trend renal function (4) Rhabdomyolysis Assessment & Plan: DAILY ESTIMATED NEEDS: Needs based on DM, pulmonary 68.4kg 25-30 kcals/kg 4604-7299 total kcals 1-1.5 g protein/kg 68-102 g total protein 25-30 mL/kg 0685-8844 total fluid mLs NUTRITION DIAGNOSIS: Altered nutrition related lab values r/t DKA as evidenced by Uglu 4+ on adm, small acetone detected, BG 1087, A1C 8.1. CURRENT DIET: Renal + Ensure TID PO DIET RECOMMENDATIONS: With poor po rec LOW NA/ CCHO MED diet (texture as tolerated) ENTERAL NUTRITION RECOMMENDATIONS: Consider non oral feeds if part of POC w/ poor po intake ADDITIONAL RECOMMENDATIONS: 1) Recommend supplement w/ continued poor intake Nepro TID w/ elevated K 2) Monitor BG w/ poor po, pt at risk for hypoglycemia w/ insulin regimen 3) Maintain calibrated bed scale wts 4) Non oral feeds of part of POC, w/ continued poor to fair po intake Pt is A&O x1, on haldol Patient pulled out right femoral central line (henry cath). Pressure was applied for 10mins. Bleeding was stopped. Dressing was applied to site will plan for new line (5) Diabetes mellitus out of control (6) Abnormal thyroid blood test (7) NSTEMI (non-ST elevated myocardial infarction) Norberto Steele Nov 13, 2020 13:36
--- NOTE | 2020-11-13 15:12 | Nephrology Progress Note ---
Assessment/Plan Problem List: (1) Renal failure (ARF), acute on chronic (2) DKA (diabetic ketoacidoses) (3) COVID-19 virus infection (4) Rhabdomyolysis (5) Abnormal thyroid blood test (6) NSTEMI (non-ST elevated myocardial infarction) Assessment 75-year-old Yi male Covid positive Acute renal failure, most likely superimposed on chronic kidney disease Diabetes mellitus, presents with severe hyperglycemia and DKA History of hypertension Plan November 13: Lab reviewed. Serum creatinine 3.2. No need for dialysis today. Continue to monitor renal parameters. Continue per consultants. November 12: Labs reviewed. Serum creatinine 3. No dialysis needed today. Continue to monitor renal parameters. November 11: Labs reviewed. Serum creatinine higher. Due for placement of a Nontunneled catheter today. We will schedule dialysis as needed. Patient's leukocytosis gradually improving. November 10: Lab reviewed. Serum creatinine rising. We will proceed with placement of a nontunneled catheter tomorrow and dialysis. Patient has leukocytosis at this time. Continue per consultants. November 09: Labs reviewed. Patient was dialyzed yesterday. Patient pulled out the dialysis catheter last night. Renal parameters stable. Continue to monitor and if dialysis needed to place a new temporary catheter. Per orders. November 08: Labs reviewed. Serum creatinine is plateauing. Due for dialysis today. We will continue to monitor renal parameters and dialysis as needed. November 07: Labs reviewed. Serum creatinine rising. IV fluid discontinued. Dialysis for tomorrow. Continue per consultants. November 06: Labs reviewed. Blood pressure stable. Medication list reviewed. Dialysis as needed. November 05: Due for dialysis today. Labs are reviewed. Blood pressure is stable. Continue to monitor renal parameters. November 04: Patient was dialyzed yesterday. 1 L ultrafiltrated. Labs reviewed. Renal parameters stable. Will attempt dialysis again tomorrow. Medication list reviewed. November 03: Labs reviewed. Serum creatinine rising. Patient has hematuria. Patient on Eliquis. Will arrange for placement of dialysis catheter and attempt to dialyze. Will start Flomax since the patient could not have a Anand catheter. Continue to monitor renal parameters. Continue per consultants. Discussed with RN. Consent for placement of nontunneled catheter ordered. Patient is also on Tapazole for high thyroid hormone. CPK is lowering. November 02: Labs reviewed. Serum creatinine up to 4. In S DU now. On Cardizem drip. Measured creatinine clearance . Patient may lead towards dialysis. Continue to monitor renal parameters. November 01: Renal parameters improving. Blood sugar is improving. Continue to m onitor electrolytes renal parameters and urine output. Aim to control blood sugar and blood pressure. Avoid nephrotoxic's. Monitor CPK as it is elevated. Previously: Anand catheter Blood sugar control Slow hydration Monitor renal parameters Kidney ultrasound no hydronephrosis 2D echocardiogram ejection fraction 60 to 65%. Per orders Subjective ROS Limited/Unobtainable: Yes Objective Objective Last 24 Hour Vital Signs Date Time Temp Pulse Resp B/P (MAP) Pulse Ox O2 Delivery O2 Flow Rate FiO2 11/13/20 12:00 97.6 58 19 114/51 (72) 93 11/13/20 12:00 56 11/13/20 09:00 Room Air 11/13/20 08:42 65 113/58 11/13/20 08:40 65 113/58 11/13/20 08:00 97.4 65 19 113/58 (76) 99 11/13/20 08:00 69 11/13/20 04:00 97.5 60 16 133/58 (83) 96 11/13/20 04:00 55 11/13/20 00:00 97.5 54 16 110/52 (71) 97 11/13/20 00:00 54 11/12/20 21:00 Nasal Cannula 2.0 11/12/20 20:23 62 108/50 11/12/20 20:16 97 Nasal Cannula 2.0 28 11/12/20 20:00 97.6 60 16 108/60 (76) 96 11/12/20 20:00 60 11/12/20 17:58 54 100/49 11/12/20 16:00 97.4 54 20 100/49 (66) 99 11/12/20 16:00 65 Intake and Output 11/12/20 11/13/20 19:00 07:00 Intake Total 840 ml 350 ml Output Total 750 ml 800 ml Balance 90 ml -450 ml Intake Oral 840 ml 350 ml Output Urine Total 750 ml 800 ml # Bowel Movements 1 Current Medications Medications (Trade) Dose Ordered Sig/Manasa Route PRN Reason Start Time Stop Time Status Last Admin Dose Admin Acetaminophen (Tylenol) 500 mg Q4H PRN ORAL For Pain 11/01/20 01:00 12/01/20 00:59 11/01/20 18:50 Acetaminophen (Tylenol) 650 mg Q4H PRN RECTAL Temp >100.5 11/01/20 21:30 12/01/20 21:29 Allopurinol (Zyloprim) 200 mg DAILY ORAL 11/01/20 16:00 12/01/20 15:59 11/13/20 08:41 Amiodarone HCl (Cordarone) 200 mg DAILY ORAL 11/10/20 09:00 02/08/21 08:59 11/13/20 08:42 Chlorhexidine Gluconate (María Elena-Hex 2%) 1 applic DAILY@1999 TOPIC 11/04/20 20:00 02/02/21 19:59 11/12/20 20:22 Clonidine HCl (Catapres Tab) 0.1 mg Q4H PRN ORAL bp over 160 syst 10/31/20 17:45 01/29/21 17:44 11/01/20 09:20 Dextrose (Dextrose 50%) 25 ml Q30M PRN IV Hypoglycemia 11/01/20 07:15 01/30/21 07:14 Dextrose (Dextrose 50%) 50 ml Q30M PRN IV Hypoglycemia 11/01/20 07:15 01/30/21 07:14 Diltiazem HCl (Cardizem Tab) 90 mg BID ORAL 11/07/20 10:15 12/02/20 17:59 11/13/20 08:40 Docusate Sodium (Colace) 100 mg TWICE A DAY ORAL 10/31/20 18:00 11/30/20 17:59 11/13/20 08:41 Haloperidol Lactate (Haldol) 5 mg Q6H PRN IM Agitation 11/06/20 21:30 12/21/20 21:29 11/09/20 02:40 Insulin Aspart (NovoLOG) BEFORE MEALS AND HS SUBQ 11/01/20 11:30 01/30/21 11:29 11/13/20 11:37 Insulin Aspart (NovoLOG) 10 units NOVOTIAC SUBQ 11/13/20 16:50 01/30/21 11:49 Insulin Detemir (Levemir) 10 units QHS SUBQ 11/13/20 21:00 01/30/21 08:59 Methimazole (Tapazole) 10 mg DAILY ORAL 11/03/20 09:00 12/03/20 08:59 11/13/20 08:42 Metoprolol Tartrate (Lopressor) 50 mg Q12HR ORAL 11/01/20 21:00 01/30/21 20:59 11/13/20 08:42 Ondansetron HCl (Zofran) 4 mg Q6H PRN IVP Nausea & Vomiting 11/07/20 16:30 12/07/20 16:29 11/07/20 17:28 Pantoprazole (Protonix) 40 mg BID ORAL 10/31/20 18:00 11/30/20 17:44 11/13/20 08:42 Sitagliptin Phosphate (Januvia) 25 mg ACBREAKFAST ORAL 11/06/20 06:30 12/06/20 06:29 11/13/20 06:57 Tamsulosin HCl (Flomax) 0.4 mg BID ORAL 11/03/20 12:00 12/03/20 11:59 11/13/20 08:43 Vitamin D (Vitamin D) 5,000 unit DAILY ORAL 11/13/20 09:00 12/13/20 08:59 11/13/20 08:41 Laboratory Tests 11/12/20 16:46: POC Whole Blood Glucose 146H 11/12/20 20:27: POC Whole Blood Glucose 109H 11/13/20 05:42: POC Whole Blood Glucose 76 11/13/20 06:05: White Blood Count 10.4, Red Blood Count 2.81L, Hemoglobin 8.4L, Hematocrit 25.3L , Mean Corpuscular Volume 90, Mean Corpuscular Hemoglobin 30.0, Mean Corpuscular Hemoglobin Concent 33.3, Red Cell Distribution Width 12.9, Platelet Count 242, Mean Platelet Volume 6.7, Neutrophils (%) (Auto) , Lymphocytes (%) (Auto) , Monocytes (%) (Auto) , Eosinophils (%) (Auto) , Basophils (%) (Auto) , Differential Total Cells Counted 100, Neutrophils % (Manual) 94H, Lymphocytes % (Manual) 4L, Monocytes % (Manual) 2, Eosinophils % (Manual) 0, Basophils % (Manual) 0, Band Neutrophils 0, Platelet Estimate Adequate, Platelet Morphology Normal, Hypochromasia 1+, Sodium Level 137, Potassium Level 4.3, Chloride Level 102, Carbon Dioxide Level 28, Anion Gap 7, Blood Urea Nitrogen 58H, Creatinine 3.2H, Estimat Glomerular Filtration Rate 19.0, Glucose Level 82, Calcium Level 7.8L, Phosphorus Level 4.5, Total Bilirubin 0.4, Aspartate Amino Transf (AST/SGOT) 20, Alanine Aminotransferase (ALT/SGPT) 38, Alkaline Phosphatase 68, C-Reactive Protein, Quantitative 1.9H, Total Protein 5.2L, Albumin 1.7L, Globulin 3.5, Albumin/Globulin Ratio 0.5L 11/13/20 11:04: POC Whole Blood Glucose 366H Height (Feet): 5 Height (Inches): 5.00 Weight (Pounds): 150 General Appearance: no apparent distress, lethargic Cardiovascular: normal rate Respiratory/Chest: decreased breath sounds Abdomen: distended Garth Buckley MD Nov 13, 2020 15:12
[2020-11-13 16:00] VITALS: BP 130/62
--- NOTE | 2020-11-13 19:12 | NUR ---
NURSE HAND-OFF REPORT: Important Events on Shift:Pt is on room air, saturating 93-94%. Still on restrains. Patient Status: Stable Diet: renal Pending Orders: Pending Results/Labs: Pending MD notification: Latest Vital Signs: Temperature 97.7 , Pulse 85 , B/P 130 /62 , Respiratory Rate 20 , O2 SAT 94 , Nasal Cannula, O2 Flow Rate 2.0 . Vital Sign Comment: stable EKG Rhythm: Sinus Rhythm Rhythm change?: N Notified?: Amari MCQUEEN MD Response: Message left await call Latest Bhat Fall Score: 60 Fall Risk: High Risk Safety Measures: Call light Within Reach, Bed Alarm Zone 1, Side Rails Side Rails x3, Bed position Low and Locked. Fall Precautions: Yellow Socks Yellow Gown Door Sign Patient Fall Education Report given to Gho/RN.
--- NOTE | 2020-11-13 19:20 | NUR ---
NURSE NOTES: Receive a report from ARPITA Pandey. Pt is asleep without acute distress. No respiratory distress on RA. IJ on right side kept intact. On bilateral restraints on wrists. Skin, motor and skin intact. Call light within reach. Bed is lowest. Will continue to monitor.
--- NOTE | 2020-11-13 19:55 | NUR ---
NURSE NOTES: SOFTWARE MAINTENANCE ENGINEER says that when SOFTWARE MAINTENANCE ENGINEER came in to check to vss, pt was mad and upset so request to check pt with SOFTWARE MAINTENANCE ENGINEER. Noted pt shows agitation and ask to tie off restraints so he can move around. Pt gets agitated and did not answer any questions but shows anger. Shortly untied restraints but showing increased agitation. Reapply restraints bilateral and explain for the reasons. Will provide prn Haldol as ordered. Will continue to monitor closely and SOFTWARE MAINTENANCE ENGINEER is at bed side.
[2020-11-13 20:00] VITALS: BP 123/50
[2020-11-13] MEDS: Haloperidol 5mg/ml Inj IM PRN (20:02)
--- NOTE | 2020-11-13 20:15 | NUR ---
NURSE NOTES: Given prn Haldol IM as ordered. Provide some water and clean pt including diversion tool such as TV. Will continue to monitor.
[2020-11-13] MEDS: Dyna-Hex 2% Top Sol 2oz TOPIC SCH (20:33)
--- NOTE | 2020-11-13 21:00 | NUR ---
NURSE NOTES: Pt calms down at this time after sponge bath, new gown and sheet along with medication. On bilateral restraints. Call light within reach. Will continue to monitor.
--- NOTE | 2020-11-13 21:47 | General Progress Note ---
Subjective ROS Limited/Unobtainable: Yes Allergies: Coded Allergies: No Known Allergies (Unverified , 10/31/20) Objective Last 24 Hour Vital Signs Date Time Temp Pulse Resp B/P (MAP) Pulse Ox O2 Delivery O2 Flow Rate FiO2 11/13/20 20:33 66 123/50 11/13/20 20:00 98.0 66 20 123/50 (74) 92 11/13/20 17:12 85 130/62 11/13/20 16:00 97.7 85 20 130/62 (84) 94 11/13/20 16:00 65 11/13/20 12:00 97.6 58 19 114/51 (72) 93 11/13/20 12:00 56 11/13/20 09:00 Room Air 11/13/20 08:42 65 113/58 11/13/20 08:40 65 113/58 11/13/20 08:00 97.4 65 19 113/58 (76) 99 11/13/20 08:00 69 11/13/20 04:00 97.5 60 16 133/58 (83) 96 11/13/20 04:00 55 11/13/20 00:00 97.5 54 16 110/52 (71) 97 11/13/20 00:00 54 Intake and Output 11/12/20 11/13/20 19:00 07:00 Intake Total 840 ml 350 ml Output Total 750 ml 800 ml Balance 90 ml -450 ml Intake Oral 840 ml 350 ml Output Urine Total 750 ml 800 ml # Bowel Movements 1 Laboratory Tests 11/13/20 05:42: POC Whole Blood Glucose 76 11/13/20 06:05: White Blood Count 10.4, Red Blood Count 2.81L, Hemoglobin 8.4L, Hematocrit 25.3L , Mean Corpuscular Volume 90, Mean Corpuscular Hemoglobin 30.0, Mean Corpuscular Hemoglobin Concent 33.3, Red Cell Distribution Width 12.9, Platelet Count 242, Mean Platelet Volume 6.7, Neutrophils (%) (Auto) , Lymphocytes (%) (Auto) , Monocytes (%) (Auto) , Eosinophils (%) (Auto) , Basophils (%) (Auto) , Differential Total Cells Counted 100, Neutrophils % (Manual) 94H, Lymphocytes % (Manual) 4L, Monocytes % (Manual) 2, Eosinophils % (Manual) 0, Basophils % (M anual) 0, Band Neutrophils 0, Platelet Estimate Adequate, Platelet Morphology Normal, Hypochromasia 1+, Sodium Level 137, Potassium Level 4.3, Chloride Level 102, Carbon Dioxide Level 28, Anion Gap 7, Blood Urea Nitrogen 58H, Creatinine 3.2H, Estimat Glomerular Filtration Rate 19.0, Glucose Level 82, Calcium Level 7.8L, Phosphorus Level 4.5, Total Bilirubin 0.4, Aspartate Amino Transf (AST/SGOT) 20, Alanine Aminotransferase (ALT/SGPT) 38, Alkaline Phosphatase 68, C-Reactive Protein, Quantitative 1.9H, Total Protein 5.2L, Albumin 1.7L, Globulin 3.5, Albumin/Globulin Ratio 0.5L 11/13/20 11:04: POC Whole Blood Glucose 366H 11/13/20 15:49: POC Whole Blood Glucose 71L 11/13/20 17:58: POC Whole Blood Glucose 137H 11/13/20 20:36: POC Whole Blood Glucose 203H Height (Feet): 5 Height (Inches): 5.00 Weight (Pounds): 150 Assessment/Plan Problem List: (1) Renal failure (ARF), acute on chronic ICD Codes: N17.9 - Acute kidney failure, unspecified; N18.9 - Chronic kidney disease, unspecified SNOMED: 502337822 (2) DKA (diabetic ketoacidoses) ICD Codes: E11.10 - Type 2 diabetes mellitus with ketoacidosis without coma SNOMED: 700098764, 61926548 (3) COVID-19 virus infection ICD Codes: U07.1 - COVID-19 SNOMED: 302629717 (4) Rhabdomyolysis ICD Codes: M62.82 - Rhabdomyolysis SNOMED: 645861188 (5) Diabetes mellitus out of control ICD Codes: E11.65 - Type 2 diabetes mellitus with hyperglycemia SNOMED: 86453905, 124425703 (6) Abnormal thyroid blood test ICD Codes: R79.89 - Other specified abnormal findings of blood chemistry SNOMED: 280364122, 575640847408711 (7) NSTEMI (non-ST elevated myocardial infarction) ICD Codes: I21.4 - Non-ST elevation (NSTEMI) myocardial infarction SNOMED: 92869567 Status: progressing, unchanged Assessment/Plan: covid + esrd diabetic anemia nstemi reviewed chart dehydration sepsis weak malnutrition Corey Soto MD Nov 13, 2020 21:47
[2020-11-14] VITALS: BP 115/55
[2020-11-14 04:00] VITALS: BP 127/54
--- NOTE | 2020-11-14 05:00 | NUR ---
NURSE NOTES: No agitation noted. Spo2 94% in RA. Noted urinary incontinence. Kept clean and dry. Skin intact. Will continue to monitor.
[2020-11-14] MEDS: NovoLOG Insulin Flexpen SUBQ SCH ×7 (06:19→21:30)
[2020-11-14] MEDS: sitaGLIPtin 25mg tab ORAL SCH (06:19)
--- NOTE | 2020-11-14 06:35 | General Progress Note ---
Subjective ROS Limited/Unobtainable: Yes Allergies: Coded Allergies: No Known Allergies (Unverified , 10/31/20) Subjective events noted interval notes reviewed glucose values improved Item Value Date Time Bedside Blood Glucose 127 mg/dl H 11/14/20 0622 Bedside Blood Glucose 203 mg/dl H 11/13/20 2051 Bedside Blood Glucose 71 mg/dl 11/13/20 1630 Bedside Blood Glucose 366 mg/dl H 11/13/20 1138 Bedside Blood Glucose 76 mg/dl 11/13/20 0837 Bedside Blood Glucose 76 mg/dl 11/13/20 0646 Objective Last 24 Hour Vital Signs Date Time Temp Pulse Resp B/P (MAP) Pulse Ox O2 Delivery O2 Flow Rate FiO2 11/14/20 04:00 60 11/14/20 04:00 97.4 54 16 127/54 (78) 94 11/14/20 00:00 97.4 54 16 115/55 (75) 93 11/14/20 00:00 54 11/13/20 21:00 Room Air 11/13/20 20:33 66 123/50 11/13/20 20:00 98.0 66 20 123/50 (74) 92 11/13/20 20:00 69 11/13/20 17:12 85 130/62 11/13/20 16:00 97.7 85 20 130/62 (84) 94 11/13/20 16:00 65 11/13/20 12:00 97.6 58 19 114/51 (72) 93 11/13/20 12:00 56 11/13/20 09:00 Room Air 11/13/20 08:42 65 113/58 11/13/20 08:40 65 113/58 11/13/20 08:00 97.4 65 19 113/58 (76) 99 11/13/20 08:00 69 Intake and Output 11/13/20 11/14/20 19:00 07:00 Intake Total 860 ml 150 ml Balance 860 ml 150 ml Intake Oral 860 ml 150 ml # Voids 3 3 # Bowel Movements 2 Laboratory Tests 11/13/20 11:04: POC Whole Blood Glucose 366H 11/13/20 15:49: POC Whole Blood Glucose 71L 11/13/20 17:58: POC Whole Blood Glucose 137H 11/13/20 20:36: POC Whole Blood Glucose 203H 11/14/20 04:59: POC Whole Blood Glucose 127H Height (Feet): 5 Height (Inches): 5.00 Weight (Pounds): 150 Objective Current Medications Medications (Trade) Dose Ordered Sig/Manasa Route PRN Reason Start Time Stop Time Status Last Admin Dose Admin Acetaminophen (Tylenol) 500 mg Q4H PRN ORAL For Pain 11/01/20 01:00 12/01/20 00:59 11/01/20 18:50 Acetaminophen (Tylenol) 650 mg Q4H PRN RECTAL Temp >100.5 11/01/20 21:30 12/01/20 21:29 Allopurinol (Zyloprim) 200 mg DAILY ORAL 11/01/20 16:00 12/01/20 15:59 11/13/20 08:41 Amiodarone HCl (Cordarone) 200 mg DAILY ORAL 11/10/20 09:00 02/08/21 08:59 11/13/20 08:42 Chlorhexidine Gluconate (María Elena-Hex 2%) 1 applic DAILY@1999 TOPIC 11/04/20 20:00 02/02/21 19:59 11/13/20 20:33 Clonidine HCl (Catapres Tab) 0.1 mg Q4H PRN ORAL bp over 160 syst 10/31/20 17:45 01/29/21 17:44 11/01/20 09:20 Dextrose (Dextrose 50%) 25 ml Q30M PRN IV Hypoglycemia 11/01/20 07:15 01/30/21 07:14 Dextrose (Dextrose 50%) 50 ml Q30M PRN IV Hypoglycemia 11/01/20 07:15 01/30/21 07:14 Diltiazem HCl (Cardizem Tab) 90 mg BID ORAL 11/07/20 10:15 12/02/20 17:59 11/13/20 17:12 Docusate Sodium (Colace) 100 mg TWICE A DAY ORAL 10/31/20 18:00 11/30/20 17:59 11/13/20 17:11 Haloperidol Lactate (Haldol) 5 mg Q6H PRN IM Agitation 11/06/20 21:30 12/21/20 21:29 11/13/20 20:02 Insulin Aspart (NovoLOG) BEFORE MEALS AND HS SUBQ 11/01/20 11:30 01/30/21 11:29 11/13/20 20:43 Insulin Aspart (NovoLOG) 10 units NOVOTIAC SUBQ 11/13/20 16:50 01/30/21 11:49 11/14/20 06:22 Insulin Detemir (Levemir) 10 units QHS SUBQ 11/13/20 21:00 01/30/21 08:59 11/13/20 20:42 Methimazole (Tapazole) 10 mg DAILY ORAL 11/03/20 09:00 12/03/20 08:59 11/13/20 08:42 Metoprolol Tartrate (Lopressor) 50 mg Q12HR ORAL 11/01/20 21:00 01/30/21 20:59 11/13/20 20:33 Ondansetron HCl (Zofran) 4 mg Q6H PRN IVP Nausea & Vomiting 11/07/20 16:30 12/07/20 16:29 11/07/20 17:28 Pantoprazole (Protonix) 40 mg BID ORAL 10/31/20 18:00 11/30/20 17:44 11/13/20 17:10 Sitagliptin Phosphate (Januvia) 25 mg ACBREAKFAST ORAL 11/06/20 06:30 12/06/20 06:29 11/14/20 06:19 Tamsulosin HCl (Flomax) 0.4 mg BID ORAL 11/03/20 12:00 12/03/20 11:59 11/13/20 17:10 Vitamin D (Vitamin D) 5,000 unit DAILY ORAL 11/13/20 09:00 12/13/20 08:59 11/13/20 08:41 Assessment/Plan Problem List: (1) Abnormal thyroid blood test ICD Codes: R79.89 - Other specified abnormal findings of blood chemistry SNOMED: 306832946, 453824608705955 (2) Diabetes mellitus out of control ICD Codes: E11.65 - Type 2 diabetes mellitus with hyperglycemia SNOMED: 81854574, 248559798 (3) Renal failure (ARF), acute on chronic ICD Codes: N17.9 - Acute kidney failure, unspecified; N18.9 - Chronic kidney disease, unspecified SNOMED: 499118264 (4) COVID-19 virus infection ICD Codes: U07.1 - COVID-19 SNOMED: 015886395 (5) DKA (diabetic ketoacidoses) ICD Codes: E11.10 - Type 2 diabetes mellitus with ketoacidosis without coma SNOMED: 152079788, 24373755 (6) NSTEMI (non-ST elevated myocardial infarction) ICD Codes: I21.4 - Non-ST elevation (NSTEMI) myocardial infarction SNOMED: 26532456 Status: progressing, unchanged Assessment/Plan: continue Levemir 10 units qhs reduce Novolog to 7 units ac tid continue Novolog sliding scale ac hs continue Januvia 25 mg daily continue Tapazole 10 mg daily TSI pending Markus Tamez MD Nov 14, 2020 06:35
--- NOTE | 2020-11-14 06:41 | NUR ---
CASE MANAGEMENT:REVIEW 11/14/20 SI: NSTEMI. COVID PNA. DKA. AFLUTTER W/RVR ACUTE ON CHRONIC RENAL FAILURE 97.4 60 16 127/54 94% ON RA BUN+58 CR+3.2 H/H+8.4/25.3 IS: CARDIZEM PO BID AMIODARONE PO QD NOVOLOG SQ TID AC JANUVIA PO QAM SS INSULIN AC+HS LEVEMIR SQ QD FLOMAX PO BID TAPAZOLE PO QD LOPRESSOR PO Q12 PROTONIX PO BID : TELEMETRY STATUS DCP: FROM HOME PLAN: RT FEMORAL TEMPORARY CATHETER PLACED 11/11/20
[2020-11-14 07:16] LABS: BASOPHILS % (AUTO) 0.4 % (0.0-2.0); EOSINOPHILS % (AUTO) 1.1 % (0.0-3.0); HEMATOCRIT 24.3 % (42.0-52.0); LYMPHOCYTES % (AUTO) 7.6 % (20.0-45.0); MEAN CORPUSCULAR VOLUME 90 FL (80-99); MONOCYTES % (AUTO) 6.2 % (1.0-10.0); NEUTROPHILS % (AUTO) 84.7 % (45.0-75.0); PLATELET COUNT 209 K/UL (150-450); RED CELL DISTRIBUTION WIDTH 13.2 % (11.6-14.8); WHITE BLOOD COUNT 8.5 K/UL (4.8-10.8)
--- NOTE | 2020-11-14 07:30 | NUR ---
NURSE HAND-OFF REPORT: Important Events on Shift:Agitated with confusion- Haldol x1 given. On RA without respiratory distress. Patient Status: [stable] Diet: [Renal puree diet] Pending Orders: [] Pending Results/Labs:[] Pending MD notification:[] Latest Vital Signs: Temperature 97.4 , Pulse 54 , B/P 127 /54 , Respiratory Rate 16 , O2 SAT 94 , Nasal Cannula, O2 Flow Rate 2.0 . Vital Sign Comment: [] EKG Rhythm: Sinus Moose Rhythm change?: N Notified?: mAari MCQUEEN MD Response: Message left await call Latest Bhat Fall Score: 60 Fall Risk: High Risk Safety Measures: Call light Within Reach, Bed Alarm Zone 1, Side Rails Side Rails x3, Bed position Low and Locked. Fall Precautions: Yellow Socks Yellow Gown Door Sign Patient Fall Education Report given to ARPITA Clemens.
[2020-11-14 07:42] LABS: ALBUMIN 1.7 G/DL (3.4-5.0); ALBUMIN/GLOBULIN RATIO 0.5 (1.0-2.7); BILIRUBIN,TOTAL 0.5 MG/DL (0.2-1.0); CALCIUM 7.7 MG/DL (8.5-10.1); CREATININE 3.2 MG/DL (0.55-1.30); PHOSPHORUS 4.4 MG/DL (2.5-4.9); POTASSIUM 4.1 MMOL/L (3.5-5.1)
[2020-11-14 08:00] VITALS: BP 125/51
--- NOTE | 2020-11-14 08:35 | NUR ---
RADIOLOGY: PCXR COMPLETED 0800HRS. NF Addendum: 11/14/20 at 0838 by DONNA SMITH CRT RAD PCXR NOTE AT 0800HRS. 11-14-21 IN ERROR. DIFFERENT PATIENT ROBERJuanito BLOUNT
[2020-11-14] MEDS: methIMAzole 10mg tab ORAL SCH (08:44)
[2020-11-14] MEDS: dilTIAZem HCl 90mg tab ORAL SCH ×2 (08:44→17:04)
[2020-11-14] MEDS: Docusate 100mg cap ORAL SCH ×2 (08:44→17:04)
[2020-11-14] MEDS: Tamsulosin 0.4mg cap ORAL SCH ×2 (08:44→17:05)
[2020-11-14] MEDS: Amiodarone 200mg tab ORAL SCH (08:45)
[2020-11-14] MEDS: Metoprolol Tartrate 50mg tab ORAL SCH ×2 (08:45→21:28)
[2020-11-14] MEDS: Allopurinol 100mg Tab ORAL SCH (08:47)
[2020-11-14] MEDS: Vitamin D 1000 units Tab ORAL SCH (09:17)
--- NOTE | 2020-11-14 09:40 | Pulmonology Progress Note ---
Subjective ROS Limited/Unobtainable: Yes Interval Events: none major reported per nursing Constitutional: Denies: fever Gastrointestinal/Abdominal: Reports: diarrhea - C. diff negative Psychiatric: Reports: other - on restraint Allergies: Coded Allergies: No Known Allergies (Unverified , 10/31/20) Objective Last 24 Hour Vital Signs Date Time Temp Pulse Resp B/P (MAP) Pulse Ox O2 Delivery O2 Flow Rate FiO2 11/14/20 08:45 74 125/51 11/14/20 08:44 74 125/51 11/14/20 08:00 97.7 74 18 125/51 (75) 92 11/14/20 04:00 60 11/14/20 04:00 97.4 54 16 127/54 (78) 94 11/14/20 00:00 97.4 54 16 115/55 (75) 93 11/14/20 00:00 54 11/13/20 21:00 Room Air 11/13/20 20:33 66 123/50 11/13/20 20:00 98.0 66 20 123/50 (74) 92 11/13/20 20:00 69 11/13/20 17:12 85 130/62 11/13/20 16:00 97.7 85 20 130/62 (84) 94 11/13/20 16:00 65 11/13/20 12:00 97.6 58 19 114/51 (72) 93 11/13/20 12:00 56 Intake and Output 11/13/20 11/14/20 19:00 07:00 Intake Total 860 ml 150 ml Balance 860 ml 150 ml Intake Oral 860 ml 150 ml # Voids 3 3 # Bowel Movements 2 Objective now on room air General Appearance: WD/WN, no acute distress HEENT: atraumatic Respiratory: chest wall non-tender Cardiovascular: normal rate, regular rhythm Abdomen: soft, non tender Laboratory Tests 11/13/20 11:04: POC Whole Blood Glucose 366H 11/13/20 15:49: POC Whole Blood Glucose 71L 11/13/20 17:58: POC Whole Blood Glucose 137H 11/13/20 20:36: POC Whole Blood Glucose 203H 11/14/20 04:10: White Blood Count 8.5, Red Blood Count 2.70L, Hemoglobin 8.0L, Hematocrit 24.3L, Mean Corpuscular Volume 90, Mean Corpuscular Hemoglobin 29.6, Mean Corpuscular Hemoglobin Concent 32.8, Red Cell Distribution Width 13.2, Platelet Count 209, Mean Platelet Volume 6.2L, Neutrophils (%) (Auto) 84.7H, Lymphocytes (%) (Auto) 7.6L, Monocytes (%) (Auto) 6.2, Eosinophils (%) (Auto) 1.1, Basophils (%) (Auto) 0.4, Sodium Level 136, Potassium Level 4.1, Chloride Level 103, Carbon Dioxide Level 27, Anion Gap 6, Blood Urea Nitrogen 60H, Creatinine 3.2H, Estimat Glomerular Filtration Rate 19.0, Glucose Level 117H, Uric Acid 5.4, Calcium Level 7.7L, Phosphorus Level 4.4, Magnesium Level 2.1, Total Bilirubin 0.5, Aspartate Amino Transf (AST/SGOT) 22, Alanine Aminotransferase (ALT/SGPT) 35, Alkaline Phosphatase 72, C-Reactive Protein, Quantitative 0.9, Pro-B-Type Natriuretic Peptide 1026H, Total Protein 4.9L, Albumin 1.7L, Globulin 3.2, Albumin/Globulin Ratio 0.5L 11/14/20 04:59: POC Whole Blood Glucose 127H Current Medications Medications (Trade) Dose Ordered Sig/Manasa Route PRN Reason Start Time Stop Time Status Last Admin Dose Admin Acetaminophen (Tylenol) 500 mg Q4H PRN ORAL For Pain 11/01/20 01:00 12/01/20 00:59 11/01/20 18:50 Acetaminophen (Tylenol) 650 mg Q4H PRN RECTAL Temp >100.5 11/01/20 21:30 12/01/20 21:29 Allopurinol (Zyloprim) 200 mg DAILY ORAL 11/01/20 16:00 12/01/20 15:59 11/14/20 08:47 Amiodarone HCl (Cordarone) 200 mg DAILY ORAL 11/10/20 09:00 02/08/21 08:59 11/14/20 08:45 Chlorhexidine Gluconate (María Elena-Hex 2%) 1 applic DAILY@2000 TOPIC 11/04/20 20:00 02/02/21 19:59 11/13/20 20:33 Clonidine HCl (Catapres Tab) 0.1 mg Q4H PRN ORAL bp over 160 syst 10/31/20 17:45 01/29/21 17:44 11/01/20 09:20 Dextrose (Dextrose 50%) 25 ml Q30M PRN IV Hypoglycemia 11/01/20 07:15 01/30/21 07:14 Dextrose (Dextrose 50%) 50 ml Q30M PRN IV Hypoglycemia 11/01/20 07:15 01/30/21 07:14 Diltiazem HCl (Cardizem Tab) 90 mg BID ORAL 11/07/20 10:15 12/02/20 17:59 11/14/20 08:44 Docusate Sodium (Colace) 100 mg TWICE A DAY ORAL 10/31/20 18:00 11/30/20 17:59 11/14/20 08:44 Haloperidol Lactate (Haldol) 5 mg Q6H PRN IM Agitation 11/06/20 21:30 12/21/20 21:29 11/13/20 20:02 Insulin Aspart (NovoLOG) BEFORE MEALS AND HS SUBQ 11/01/20 11:30 01/30/21 11:29 11/13/20 20:43 Insulin Aspart (NovoLOG) 7 units NOVOTIAC SUBQ 11/14/20 11:50 01/30/21 11:49 Insulin Detemir (Levemir) 10 units QHS SUBQ 11/13/20 21:00 01/30/21 08:59 11/13/20 20:42 Methimazole (Tapazole) 10 mg DAILY ORAL 11/03/20 09:00 12/03/20 08:59 11/14/20 08:44 Metoprolol Tartrate (Lopressor) 50 mg Q12HR ORAL 11/01/20 21:00 01/30/21 20:59 11/14/20 08:45 Ondansetron HCl (Zofran) 4 mg Q6H PRN IVP Nausea & Vomiting 11/07/20 16:30 12/07/20 16:29 11/07/20 17:28 Pantoprazole (Protonix) 40 mg BID ORAL 10/31/20 18:00 11/30/20 17:44 11/14/20 08:44 Sitagliptin Phosphate (Januvia) 25 mg ACBREAKFAST ORAL 11/06/20 06:30 12/06/20 06:29 11/14/20 06:19 Tamsulosin HCl (Flomax) 0.4 mg BID ORAL 11/03/20 12:00 12/03/20 11:59 11/14/20 08:44 Vitamin D (Vitamin D) 5,000 unit DAILY ORAL 11/13/20 09:00 12/13/20 08:59 11/14/20 09:17 Assessment/Plan Assessment/Plan 1. Non-ST elevation myocardial infarction. - cardiology following 2. Diabetic ketoacidosis - seen by endocrinology - continue fluids - on insulin 3. Atrial flutter with rapid ventricular response. - Continue metoprolol 50 mg b.i.d. 4. COVID positive pneumonia. - s/p Decadron (11/03-11/12) - Supplemental O2 - saturating at 94% on RA; weaned off oxygen yesterday - CXR 11/04 developing b/l infilitrates 5. Renal failure - nephrology following - pt pulled out femoral HD cath, new IJ yesterday 6. Accelerated hypertension. 7. Hyperthyroidism - Dr. Tamez following 8. Diarrhea - C. diff negative DVT ppx - Lovenox The care for this patient was discussed with my supervising physician Time spent for this case was approximately 31 minutes Singh Buchanan Nov 14, 2020 09:40
--- NOTE | 2020-11-14 10:28 | NUR ---
RD ASSESSMENT & RECOMMENDATIONS SEE CARE ACTIVITY FOR COMPLETE ASSESSMENT DAILY ESTIMATED NEEDS: Needs based on DM, pulmonary 68.4kg 25-30 kcals/kg 7829-2341 total kcals 1-1.5 g protein/kg 68-102 g total protein 25-30 mL/kg total fluid mLs NUTRITION DIAGNOSIS: Altered nutrition related lab values r/t DKA as evidenced by Uglu 4+ on adm, small acetone detected, BG 1087 upon adm-> now improved, A1C 8.1. CURRENT DIET: Renal/ pureed moist+ Ensure TID PO DIET RECOMMENDATIONS: RENAL/ CCHO MED diet (texture as tolerated) ADDITIONAL RECOMMENDATIONS: 1) Monitor renal fxn and lytes, continuity of HD last HD 11/08, K, phos, mag wnl 2) Monitor BGs closely for hypoglycemia w/ insulin regimen 3) Maintain calibrated bed scale wts 4) Nephrovite x 1 5) Monitor for continued improved intake - rec to decrease HPN to QD at this time. Rec Nepro
--- NOTE | 2020-11-14 10:30 | Infectious Diseases Prog Note ---
Assessment/Plan Assessment/Plan A; COVID19 pneumonia Hypoxemia Acute renal failure improving Rhabdomyolysis Diarrhea, C. difficile negative DKA Hyperthyroidism Anemia Leukocytosis improving P; Finished Dexamethasone course Subjective ROS Limited/Unobtainable: Yes Neurologic: Reports: confusion, other - on restraint Allergies: Coded Allergies: No Known Allergies (Unverified , 10/31/20) Objective Last 24 Hour Vital Signs Date Time Temp Pulse Resp B/P (MAP) Pulse Ox O2 Delivery O2 Flow Rate FiO2 11/14/20 08:45 74 125/51 11/14/20 08:44 74 125/51 11/14/20 08:00 97.7 74 18 125/51 (75) 92 11/14/20 04:00 60 11/14/20 04:00 97.4 54 16 127/54 (78) 94 11/14/20 00:00 97.4 54 16 115/55 (75) 93 11/14/20 00:00 54 11/13/20 21:00 Room Air 11/13/20 20:33 66 123/50 11/13/20 20:00 98.0 66 20 123/50 (74) 92 11/13/20 20:00 69 11/13/20 17:12 85 130/62 11/13/20 16:00 97.7 85 20 130/62 (84) 94 11/13/20 16:00 65 11/13/20 12:00 97.6 58 19 114/51 (72) 93 11/13/20 12:00 56 Height (Feet): 5 Height (Inches): 5.00 Weight (Pounds): 150 HEENT: mucous membranes moist Respiratory/Chest: no respiratory distress, other - on room air oxygen Abdomen: soft, non tender Extremities: no edema Neurologic/Psychiatric: other - sleeping Laboratory Tests Test 11/13/20 11:04 11/13/20 15:49 11/13/20 17:58 11/13/20 20:36 POC Whole Blood Glucose 366 MG/DL (74-106) H 71 MG/DL (74-106) L 137 MG/DL (74-106) H 203 MG/DL (74-106) H Test 11/14/20 04:10 11/14/20 04:59 White Blood Count 8.5 K/UL (4.8-10.8) Red Blood Count 2.70 M/UL (4.70-6.10) L Hemoglobin 8.0 G/DL (14.2-18.0) L Hematocrit 24.3 % (42.0-52.0) L Mean Corpuscular Volume 90 FL (80-99) Mean Corpuscular Hemoglobin 29.6 PG (27.0-31.0) Mean Corpuscular Hemoglobin Concent 32.8 G/DL (32.0-36.0) Red Cell Distribution Width 13.2 % (11.6-14.8) Platelet Count 209 K/UL (150-450) Mean Platelet Volume 6.2 FL (6.5-10.1) L Neutrophils (%) (Auto) 84.7 % (45.0-75.0) H Lymphocytes (%) (Auto) 7.6 % (20.0-45.0) L Monocytes (%) (Auto) 6.2 % (1.0-10.0) Eosinophils (%) (Auto) 1.1 % (0.0-3.0) Basophils (%) (Auto) 0.4 % (0.0-2.0) Sodium Level 136 MMOL/L (136-145) Potassium Level 4.1 MMOL/L (3.5-5.1) Chloride Level 103 MMOL/L (98-107) Carbon Dioxide Level 27 MMOL/L (21-32) Anion Gap 6 mmol/L (5-15) Blood Urea Nitrogen 60 mg/dL (7-18) H Creatinine 3.2 MG/DL (0.55-1.30) H Estimat Glomerular Filtration Rate 19.0 mL/min (>60) Glucose Level 117 MG/DL (74-106) H Uric Acid 5.4 MG/DL (2.6-7.2) Calcium Level 7.7 MG/DL (8.5-10.1) L Phosphorus Level 4.4 MG/DL (2.5-4.9) Magnesium Level 2.1 MG/DL (1.8-2.4) Total Bilirubin 0.5 MG/DL (0.2-1.0) Aspartate Amino Transf (AST/SGOT) 22 U/L (15-37) Alanine Aminotransferase (ALT/SGPT) 35 U/L (12-78) Alkaline Phosphatase 72 U/L (46-116) C-Reactive Protein, Quantitative 0.9 mg/dL (0.00-0.90) Pro-B-Type Natriuretic Peptide 1026 pg/mL (0-125) H Total Protein 4.9 G/DL (6.4-8.2) L Albumin 1.7 G/DL (3.4-5.0) L Globulin 3.2 g/dL Albumin/Globulin Ratio 0.5 (1.0-2.7) L POC Whole Blood Glucose 127 MG/DL (74-106) H Current Medications Medications (Trade) Dose Ordered Sig/Manasa Route PRN Reason Start Time Stop Time Status Last Admin Dose Admin Acetaminophen (Tylenol) 500 mg Q4H PRN ORAL For Pain 11/01/20 01:00 12/01/20 00:59 11/01/20 18:50 Acetaminophen (Tylenol) 650 mg Q4H PRN RECTAL Temp >100.5 11/01/20 21:30 12/01/20 21:29 Allopurinol (Zyloprim) 200 mg DAILY ORAL 11/01/20 16:00 12/01/20 15:59 11/14/20 08:47 Amiodarone HCl (Cordarone) 200 mg DAILY ORAL 11/10/20 09:00 02/08/21 08:59 11/14/20 08:45 Chlorhexidine Gluconate (María Elena-Hex 2%) 1 applic DAILY@2000 TOPIC 11/04/20 20:00 02/02/21 19:59 11/13/20 20:33 Clonidine HCl (Catapres Tab) 0.1 mg Q4H PRN ORAL bp over 160 syst 10/31/20 17:45 01/29/21 17:44 11/01/20 09:20 Dextrose (Dextrose 50%) 25 ml Q30M PRN IV Hypoglycemia 11/01/20 07:15 01/30/21 07:14 Dextrose (Dextrose 50%) 50 ml Q30M PRN IV Hypoglycemia 11/01/20 07:15 01/30/21 07:14 Diltiazem HCl (Cardizem Tab) 90 mg BID ORAL 11/07/20 10:15 12/02/20 17:59 11/14/20 08:44 Docusate Sodium (Colace) 100 mg TWICE A DAY ORAL 10/31/20 18:00 11/30/20 17:59 11/14/20 08:44 Haloperidol Lactate (Haldol) 5 mg Q6H PRN IM Agitation 11/06/20 21:30 12/21/20 21:29 11/13/20 20:02 Insulin Aspart (NovoLOG) BEFORE MEALS AND HS SUBQ 11/01/20 11:30 01/30/21 11:29 11/13/20 20:43 Insulin Aspart (NovoLOG) 7 units NOVOTIAC SUBQ 11/14/20 11:50 01/30/21 11:49 Insulin Detemir (Levemir) 10 units QHS SUBQ 11/13/20 21:00 01/30/21 08:59 11/13/20 20:42 Methimazole (Tapazole) 10 mg DAILY ORAL 11/03/20 09:00 12/03/20 08:59 11/14/20 08:44 Metoprolol Tartrate (Lopressor) 50 mg Q12HR ORAL 11/01/20 21:00 01/30/21 20:59 11/14/20 08:45 Ondansetron HCl (Zofran) 4 mg Q6H PRN IVP Nausea & Vomiting 11/07/20 16:30 12/07/20 16:29 11/07/20 17:28 Pantoprazole (Protonix) 40 mg BID ORAL 10/31/20 18:00 11/30/20 17:44 11/14/20 08:44 Sitagliptin Phosphate (Januvia) 25 mg ACBREAKFAST ORAL 11/06/20 06:30 12/06/20 06:29 11/14/20 06:19 Tamsulosin HCl (Flomax) 0.4 mg BID ORAL 11/03/20 12:00 12/03/20 11:59 11/14/20 08:44 Vitamin D (Vitamin D) 5,000 unit DAILY ORAL 11/13/20 09:00 12/13/20 08:59 11/14/20 09:17 Reji Connelly MD Nov 14, 2020 10:30
--- NOTE | 2020-11-14 11:45 | Nephrology Progress Note ---
Assessment/Plan Problem List: (1) Renal failure (ARF), acute on chronic (2) DKA (diabetic ketoacidoses) (3) COVID-19 virus infection (4) Rhabdomyolysis (5) Abnormal thyroid blood test (6) NSTEMI (non-ST elevated myocardial infarction) Assessment 75-year-old [place] male Covid positive Acute renal failure, most likely superimposed on chronic kidney disease Diabetes mellitus, presents with severe hyperglycemia and DKA History of hypertension Plan November 14: Lab reviewed. Serum creatinine 3.2 unchanged. No need for dialysis. Continue per consultants. November 13: Lab reviewed. Serum creatinine 3.2. No need for dialysis today. Continue to monitor renal parameters. Continue per consultants. November 12: Labs reviewed. Serum creatinine 3. No dialysis needed today. Continue to monitor renal parameters. November 11: Labs reviewed. Serum creatinine higher. Due for placement of a Nontunneled catheter today. We will schedule dialysis as needed. Patient's leukocytosis gradually improving. November 10: Lab reviewed. Serum creatinine rising. We will proceed with placement of a nontunneled catheter tomorrow and dialysis. Patient has leukocytosis at this time. Continue per consultants. November 09: Labs reviewed. Patient was dialyzed yesterday. Patient pulled out the dialysis catheter last night. Renal parameters stable. Continue to monitor and if dialysis needed to place a new temporary catheter. Per orders. November 08: Labs reviewed. Serum creatinine is plateauing. Due for dialysis today. We will continue to monitor renal parameters and dialysis as needed. November 07: Labs reviewed. Serum creatinine rising. IV fluid discontinued. Dialysis for tomorrow. Continue per consultants. November 06: Labs reviewed. Blood pressure stable. Medication list reviewed. Dialysis as needed. November 05: Due for dialysis today. Labs are reviewed. Blood pressure is stable. Continue to monitor renal parameters. November 04: Patient was dialyzed yesterday. 1 L ultrafiltrated. Labs reviewed. Renal parameters stable. Will attempt dialysis again tomorrow. Medication list reviewed. November 03: Labs reviewed. Serum creatinine rising. Patient has hematuria. Patient on Eliquis. Will arrange for placement of dialysis catheter and attempt to dialyze. Will start Flomax since the patient could not have a Anand catheter. Continue to monitor renal parameters. Continue per consultants. Discussed with RN. Consent for placement of nontunneled catheter ordered. Patient is also on Tapazole for high thyroid hormone. CPK is lowering. November 02: Labs reviewed. Serum creatinine up to 4. In S DU now. On Cardizem drip. Measured creatinine clearance . Patient may lead towards dialysis. Continue to monitor renal parameters. November 01: Renal parameters improving. Blood sugar is improving. Continue to monitor electrolytes renal parameters and urine output. Aim to control blood sugar and blood pressure. Avoid nephrotoxic's. Monitor CPK as it is elevated. Previously: Anand catheter Blood sugar control Slow hydration Monitor renal parameters Kidney ultrasound no hydronephrosis 2D echocardiogram ejection fraction 60 to 65%. Per orders Subjective ROS Limited/Unobtainable: No Constitutional: Reports: malaise, weakness Objective Objective Last 24 Hour Vital Signs Date Time Temp Pulse Resp B/P (MAP) Pulse Ox O2 Delivery O2 Flow Rate FiO2 11/14/20 09:00 Room Air 11/14/20 08:45 74 125/51 11/14/20 08:44 74 125/51 11/14/20 08:00 97.7 74 18 125/51 (75) 92 11/14/20 08:00 66 11/14/20 04:00 60 11/14/20 04:00 97.4 54 16 127/54 (78) 94 11/14/20 00:00 97.4 54 16 115/55 (75) 93 11/14/20 00:00 54 11/13/20 21:00 Room Air 11/13/20 20:33 66 123/50 11/13/20 20:00 98.0 66 20 123/50 (74) 92 11/13/20 20:00 69 11/13/20 17:12 85 130/62 11/13/20 16:00 97.7 85 20 130/62 (84) 94 11/13/20 16:00 65 11/13/20 12:00 97.6 58 19 114/51 (72) 93 11/13/20 12:00 56 Intake and Output 11/13/20 11/14/20 18:59 06:59 Intake Total 860 ml 150 ml Balance 860 ml 150 ml Intake Oral 860 ml 150 ml # Voids 3 3 # Bowel Movements 2 Current Medications Medications (Trade) Dose Ordered Sig/Manasa Route PRN Reason Start Time Stop Time Status Last Admin Dose Admin Acetaminophen (Tylenol) 500 mg Q4H PRN ORAL For Pain 1/5/21 01:00 12/01/20 00:59 11/01/20 18:50 Acetaminophen (Tylenol) 650 mg Q4H PRN RECTAL Temp >100.5 11/01/20 21:30 12/01/20 21:29 Allopurinol (Zyloprim) 200 mg DAILY ORAL 11/01/20 16:00 12/01/20 15:59 11/14/20 08:47 Amiodarone HCl (Cordarone) 200 mg DAILY ORAL 11/10/20 09:00 02/08/21 08:59 11/14/20 08:45 Chlorhexidine Gluconate (María Elena-Hex 2%) 1 applic DAILY@2000 TOPIC 11/04/20 20:00 02/02/21 19:59 11/13/20 20:33 Clonidine HCl (Catapres Tab) 0.1 mg Q4H PRN ORAL bp over 160 syst 10/31/20 17:45 01/29/21 17:44 11/01/20 09:20 Dextrose (Dextrose 50%) 25 ml Q30M PRN IV Hypoglycemia 11/01/20 07:15 01/30/21 07:14 Dextrose (Dextrose 50%) 50 ml Q30M PRN IV Hypoglycemia 11/01/20 07:15 01/30/21 07:14 Diltiazem HCl (Cardizem Tab) 90 mg BID ORAL 11/07/20 10:15 12/02/20 17:59 11/14/20 08:44 Docusate Sodium (Colace) 100 mg TWICE A DAY ORAL 10/31/20 18:00 11/30/20 17:59 11/14/20 08:44 Haloperidol Lactate (Haldol) 5 mg Q6H PRN IM Agitation 11/06/20 21:30 12/21/20 21:29 11/13/20 20:02 Insulin Aspart (NovoLOG) BEFORE MEALS AND HS SUBQ 11/01/20 11:30 01/30/21 11:29 11/14/20 11:40 Insulin Aspart (NovoLOG) 7 units NOVOTIAC SUBQ 11/14/20 11:50 01/30/21 11:49 11/14/20 11:41 Insulin Detemir (Levemir) 10 units QHS SUBQ 11/13/20 21:00 01/30/21 08:59 11/13/20 20:42 Methimazole (Tapazole) 10 mg DAILY ORAL 11/03/20 09:00 12/03/20 08:59 11/14/20 08:44 Metoprolol Tartrate (Lopressor) 50 mg Q12HR ORAL 11/01/20 21:00 01/30/21 20:59 11/14/20 08:45 Ondansetron HCl (Zofran) 4 mg Q6H PRN IVP Nausea & Vomiting 11/07/20 16:30 12/07/20 16:29 11/07/20 17:28 Pantoprazole (Protonix) 40 mg BID ORAL 10/31/20 18:00 11/30/20 17:44 11/14/20 08:44 Sitagliptin Phosphate (Januvia) 25 mg ACBREAKFAST ORAL 11/06/20 06:30 12/06/20 06:29 11/14/20 06:19 Tamsulosin HCl (Flomax) 0.4 mg BID ORAL 11/03/20 12:00 12/03/20 11:59 11/14/20 08:44 Vitamin D (Vitamin D) 5,000 unit DAILY ORAL 11/13/20 09:00 12/13/20 08:59 11/14/20 09:17 Laboratory Tests 11/13/20 15:49: POC Whole Blood Glucose 71L 11/13/20 17:58: POC Whole Blood Glucose 137H 11/13/20 20:36: POC Whole Blood Glucose 203H 11/14/20 04:10: White Blood Count 8.5, Red Blood Count 2.70L, Hemoglobin 8.0L, Hematocrit 24.3L, Mean Corpuscular Volume 90, Mean Corpuscular Hemoglobin 29.6, Mean Corpuscular Hemoglobin Concent 32.8, Red Cell Distribution Width 13.2, Platelet Count 209, Mean Platelet Volume 6.2L, Neutrophils (%) (Auto) 84.7H, Lymphocytes (%) (Auto) 7.6L, Monocytes (%) (Auto) 6.2, Eosinophils (%) (Auto) 1.1, Basophils (%) (Auto) 0.4, Sodium Level 136, Potassium Level 4.1, Chloride Level 103, Carbon Dioxide Level 27, Anion Gap 6, Blood Urea Nitrogen 60H, Creatinine 3.2H, Estimat Glomerular Filtration Rate 19.0, Glucose Level 117H, Uric Acid 5.4, Calcium Level 7.7L, Phosphorus Level 4.4, Magnesium Level 2.1, Total Bilirubin 0.5, Aspartate Amino Transf (AST/SGOT) 22, Alanine Aminotransferase (ALT/SGPT) 35, Alkaline Phosphatase 72, C-Reactive Protein, Quantitative 0.9, Pro-B-Type Natriuretic Peptide 1026H, Total Protein 4.9L, Albumin 1.7L, Globulin 3.2, Albumin/Globulin Ratio 0.5L 11/14/20 04:59: POC Whole Blood Glucose 127H 11/14/20 11:25: POC Whole Blood Glucose 354H Height (Feet): 5 Height (Inches): 5.00 Weight (Pounds): 150 General Appearance: no apparent distress, lethargic Cardiovascular: normal rate Respiratory/Chest: decreased breath sounds Abdomen: distended Garth Buckley MD Nov 14, 2020 11:45
--- NOTE | 2020-11-14 11:54 | Surgery Progress Note ---
Surgery Progress Note Subjective Procedure Performed Right femoral temporary hemodialysis catheter insertion Additional Comments labs improved exam stable has not needed HD recently will monitor and plan to remove HD cath Objective Last 24 Hour Vital Signs Date Time Temp Pulse Resp B/P (MAP) Pulse Ox O2 Delivery O2 Flow Rate FiO2 11/14/20 09:00 Room Air 11/14/20 08:45 74 125/51 11/14/20 08:44 74 125/51 11/14/20 08:00 97.7 74 18 125/51 (75) 92 11/14/20 08:00 66 11/14/20 04:00 60 11/14/20 04:00 97.4 54 16 127/54 (78) 94 11/14/20 00:00 97.4 54 16 115/55 (75) 93 11/14/20 00:00 54 11/13/20 21:00 Room Air 11/13/20 20:33 66 123/50 11/13/20 20:00 98.0 66 20 123/50 (74) 92 11/13/20 20:00 69 11/13/20 17:12 85 130/62 11/13/20 16:00 97.7 85 20 130/62 (84) 94 11/13/20 16:00 65 11/13/20 12:00 97.6 58 19 114/51 (72) 93 11/13/20 12:00 56 I&O Intake and Output 11/13/20 11/14/20 19:00 07:00 Intake Total 860 ml 150 ml Balance 860 ml 150 ml Intake Oral 860 ml 150 ml # Voids 3 3 # Bowel Movements 2 Dressing: dry Cardiovascular: RSR Respiratory: decreased breath sounds Abdomen: soft, non-tender, present bowel sounds, non-distended Extremities: no edema, no tenderness, no cyanosis Laboratory Tests Test 11/13/20 15:49 11/13/20 17:58 11/13/20 20:36 11/14/20 04:10 POC Whole Blood Glucose 71 MG/DL (74-106) L 137 MG/DL (74-106) H 203 MG/DL (74-106) H White Blood Count 8.5 K/UL (4.8-10.8) Red Blood Count 2.70 M/UL (4.70-6.10) L Hemoglobin 8.0 G/DL (14.2-18.0) L Hematocrit 24.3 % (42.0-52.0) L Mean Corpuscular Volume 90 FL (80-99) Mean Corpuscular Hemoglobin 29.6 PG (27.0-31.0) Mean Corpuscular Hemoglobin Concent 32.8 G/DL (32.0-36.0) Red Cell Distribution Width 13.2 % (11.6-14.8) Platelet Count 209 K/UL (150-450) Mean Platelet Volume 6.2 FL (6.5-10.1) L Neutrophils (%) (Auto) 84.7 % (45.0-75.0) H Lymphocytes (%) (Auto) 7.6 % (20.0-45.0) L Monocytes (%) (Auto) 6.2 % (1.0-10.0) Eosinophils (%) (Auto) 1.1 % (0.0-3.0) Basophils (%) (Auto) 0.4 % (0.0-2.0) Sodium Level 136 MMOL/L (136-145) Potassium Level 4.1 MMOL/L (3.5-5.1) Chloride Level 103 MMOL/L (98-107) Carbon Dioxide Level 27 MMOL/L (21-32) Anion Gap 6 mmol/L (5-15) Blood Urea Nitrogen 60 mg/dL (7-18) H Creatinine 3.2 MG/DL (0.55-1.30) H Estimat Glomerular Filtration Rate 19.0 mL/min (>60) Glucose Level 117 MG/DL (74-106) H Uric Acid 5.4 MG/DL (2.6-7.2) Calcium Level 7.7 MG/DL (8.5-10.1) L Phosphorus Level 4.4 MG/DL (2.5-4.9) Magnesium Level 2.1 MG/DL (1.8-2.4) Total Bilirubin 0.5 MG/DL (0.2-1.0) Aspartate Amino Transf (AST/SGOT) 22 U/L (15-37) Alanine Aminotransferase (ALT/SGPT) 35 U/L (12-78) Alkaline Phosphatase 72 U/L (46-116) C-Reactive Protein, Quantitative 0.9 mg/dL (0.00-0.90) Pro-B-Type Natriuretic Peptide 1026 pg/mL (0-125) H Total Protein 4.9 G/DL (6.4-8.2) L Albumin 1.7 G/DL (3.4-5.0) L Globulin 3.2 g/dL Albumin/Globulin Ratio 0.5 (1.0-2.7) L Test 11/14/20 04:59 11/14/20 11:25 POC Whole Blood Glucose 127 MG/DL (74-106) H 354 MG/DL (74-106) H Plan Problems: (1) DKA (diabetic ketoacidoses) (2) Renal failure (ARF), acute on chronic (3) COVID-19 virus infection Assessment & Plan: 75-year-old male Covid positive renal insufficiency recently had temporary dialysis catheter placement develop leukocytosis soon after. Vitals noted. Exam stable. Catheter was evaluated no acute active inflammatory or infectious process identified. Catheter is clean dry intact. The dressings are not saturated. There is no active bleeding identified. There is no signs of active infection. Leukocytosis anterior collated to medications currently given for COVID-19 infection. Will monitor closely to ensure no active development of infection or related to catheter placement. Thank you for let me participate patient's care will follow with recommendations trend leukocytosis cont dressings cont care plan as noted cont HD trend renal function (4) Rhabdomyolysis Assessment & Plan: DAILY ESTIMATED NEEDS: Needs based on DM, pulmonary 68.4kg 25-30 kcals/kg 2980-1043 total kcals 1-1.5 g protein/kg 68-102 g total protein 25-30 mL/kg 7602-0519 total fluid mLs NUTRITION DIAGNOSIS: Altered nutrition related lab values r/t DKA as evidenced by Uglu 4+ on adm, small acetone detected, BG 1087 upon adm-> now improved, A1C 8.1. CURRENT DIET: Renal/ pureed moist+ Ensure TID PO DIET RECOMMENDATIONS: RENAL/ CCHO MED diet (texture as tolerated) ADDITIONAL RECOMMENDATIONS: 1) Monitor renal fxn and lytes, continuity of HD last HD 11/08, K, phos, mag wnl 2) Monitor BGs closely for hypoglycemia w/ insulin regimen 3) Maintain calibrated bed scale wts 4) Nephrovite x 1 5) Monitor for continued improved intake - rec to decrease HPN to QD at this time. Rec Nepro (5) Diabetes mellitus out of control (6) Abnormal thyroid blood test (7) NSTEMI (non-ST elevated myocardial infarction) Norberto Steele Nov 14, 2020 11:54
[2020-11-14 12:00] VITALS: BP 124/103
--- NOTE | 2020-11-14 13:28 | Cardiac Electrophysiology PN ---
Assessment/Plan Assessment/Plan 1. NSTEMI with troponin of 0.25 and 0.35 in this patient with DKA as well as atrial flutter with rapid ventricular response. On metoprolol 50 mg b.i.d. EF 65% 2. Atrial flutter with RVR On metoprolol 50 mg bid, Cardizem 90 bid and Amiodarone 200 po daily Eliquis held for hematuria 3. Diabetic ketoacidosis with glucose of more than 1000. 4. Accelerated hypertension. On Lopressor 50 bid and Cardizem 90 bid 5. COVID positive pneumonia. 6. Acute Renal failure in the setting of total CK of 1900, maybe rhabdomyolysis- induced renal failure. On HD via RFV Yazan by Dr. Buckley. RFV Yazan pulled out by patient. S/P New Yazan on 11/11/20 DW RN Subjective Subjective Pulled out his RFV Yazan catheter after HD 11/08/20. S/P new Yazan catheter placement 11/11/20. Last HD yesterday In restraints in covid isolation. On RA now In SR on Amio, Cardizem and metoprolol. Off Eliquis due to hematuria Objective Last 24 Hour Vital Signs Date Time Temp Pulse Resp B/P (MAP) Pulse Ox O2 Delivery O2 Flow Rate FiO2 11/14/20 12:00 97.6 62 18 124/103 (110) 94 11/14/20 09:00 Room Air 11/14/20 08:45 74 125/51 11/14/20 08:44 74 125/51 11/14/20 08:00 97.7 74 18 125/51 (75) 92 11/14/20 08:00 66 11/14/20 04:00 60 11/14/20 04:00 97.4 54 16 127/54 (78) 94 11/14/20 00:00 97.4 54 16 115/55 (75) 93 11/14/20 00:00 54 11/13/20 21:00 Room Air 11/13/20 20:33 66 123/50 11/13/20 20:00 98.0 66 20 123/50 (74) 92 11/13/20 20:00 69 11/13/20 17:12 85 130/62 11/13/20 16:00 97.7 85 20 130/62 (84) 94 11/13/20 16:00 65 Intake and Output 11/13/20 11/14/20 19:03 07:03 Intake Total 860 ml 150 ml Balance 860 ml 150 ml Intake Oral 860 ml 150 ml # Voids 3 3 # Bowel Movements 2 Laboratory Tests Test 11/13/20 15:49 11/13/20 17:58 11/13/20 20:36 11/14/20 04:10 POC Whole Blood Glucose 71 MG/DL (74-106) L 137 MG/DL (74-106) H 203 MG/DL (74-106) H White Blood Count 8.5 K/UL (4.8-10.8) Red Blood Count 2.70 M/UL (4.70-6.10) L Hemoglobin 8.0 G/DL (14.2-18.0) L Hematocrit 24.3 % (42.0-52.0) L Mean Corpuscular Volume 90 FL (80-99) Mean Corpuscular Hemoglobin 29.6 PG (27.0-31.0) Mean Corpuscular Hemoglobin Concent 32.8 G/DL (32.0-36.0) Red Cell Distribution Width 13.2 % (11.6-14.8) Platelet Count 209 K/UL (150-450) Mean Platelet Volume 6.2 FL (6.5-10.1) L Neutrophils (%) (Auto) 84.7 % (45.0-75.0) H Lymphocytes (%) (Auto) 7.6 % (20.0-45.0) L Monocytes (%) (Auto) 6.2 % (1.0-10.0) Eosinophils (%) (Auto) 1.1 % (0.0-3.0) Basophils (%) (Auto) 0.4 % (0.0-2.0) Sodium Level 136 MMOL/L (136-145) Potassium Level 4.1 MMOL/L (3.5-5.1) Chloride Level 103 MMOL/L (98-107) Carbon Dioxide Level 27 MMOL/L (21-32) Anion Gap 6 mmol/L (5-15) Blood Urea Nitrogen 60 mg/dL (7-18) H Creatinine 3.2 MG/DL (0.55-1.30) H Estimat Glomerular Filtration Rate 19.0 mL/min (>60) Glucose Level 117 MG/DL (74-106) H Uric Acid 5.4 MG/DL (2.6-7.2) Calcium Level 7.7 MG/DL (8.5-10.1) L Phosphorus Level 4.4 MG/DL (2.5-4.9) Magnesium Level 2.1 MG/DL (1.8-2.4) Total Bilirubin 0.5 MG/DL (0.2-1.0) Aspartate Amino Transf (AST/SGOT) 22 U/L (15-37) Alanine Aminotransferase (ALT/SGPT) 35 U/L (12-78) Alkaline Phosphatase 72 U/L (46-116) C-Reactive Protein, Quantitative 0.9 mg/dL (0.00-0.90) Pro-B-Type Natriuretic Peptide 1026 pg/mL (0-125) H Total Protein 4.9 G/DL (6.4-8.2) L Albumin 1.7 G/DL (3.4-5.0) L Globulin 3.2 g/dL Albumin/Globulin Ratio 0.5 (1.0-2.7) L Test 11/14/20 04:59 11/14/20 11:25 POC Whole Blood Glucose 127 MG/DL (74-106) H 354 MG/DL (74-106) H Objective HEAD AND NECK: Shows no JVD. LUNGS: Clear. CARDIOVASCULAR: Shows regular S1 and S2 with no gallop. ABDOMEN: Soft. EXTREMITIES: Right Femoral Yazan is pulled out. No pitting edema. Sivakumar Escalante MD Nov 14, 2020 13:28
[2020-11-14 16:00] VITALS: BP 129/55
--- NOTE | 2020-11-14 19:06 | NUR ---
NURSE HAND-OFF REPORT: Important Events on Shift: Patient was able to cooperate somewhat, which is encouraging. Patient is in restraints. Good appetite. Patient Status: In no apparent distress. Diet: Renal puree. Pending Orders: N/A Pending Results/Labs:am labs. Pending MD notification:N/A Latest Vital Signs: Temperature 98.1 , Pulse 52 , B/P 129 /55 , Respiratory Rate 18 , O2 SAT 95 , Nasal Cannula, O2 Flow Rate 2.0 . Vital Sign Comment: N/A EKG Rhythm: Sinus Bradycardia Rhythm change?: N Notified?: Amari MCQUEEN MD Response: Message left await call Latest Bhat Fall Score: 60 Fall Risk: High Risk Safety Measures: Call light Within Reach, Bed Alarm Zone 1, Side Rails Side Rails x3, Bed position Low and Locked. Fall Precautions: Yellow Socks Yellow Gown Door Sign Patient Fall Education Report given to Leyda Antonio RN.
--- NOTE | 2020-11-14 19:30 | NUR ---
NURSE NOTES: Received report from Sarath RN; AOX2, smiling, comfortable in bed; on room air, in no acute distress; denies any pain nor discomfort; noted with bilateral soft wrist restraints for safety and pulling medical devices; intact skin and circulation; with IV site on R IJ triple lumen intact with dressing in place; continent/incontinent based on mental status; urinal at bedside and encouraged top call for assistance in using urinal; with accucheck ACHS, will monitor blood sugar levels; call light within reach; side rails x3; bed locked and in low position; will continue to monitor.
[2020-11-14 20:00] VITALS: BP 125/50
[2020-11-14] MEDS: Levemir Flexpen SUBQ SCH (21:29)
[2020-11-14] MEDS: Dyna-Hex 2% Top Sol 2oz TOPIC SCH (21:29)
--- NOTE | 2020-11-14 21:48 | General Progress Note ---
Subjective ROS Limited/Unobtainable: Yes Allergies: Coded Allergies: No Known Allergies (Unverified , 10/31/20) Objective Last 24 Hour Vital Signs Date Time Temp Pulse Resp B/P (MAP) Pulse Ox O2 Delivery O2 Flow Rate FiO2 11/14/20 21:28 70 125/50 11/14/20 17:04 52 129/55 11/14/20 16:00 52 11/14/20 16:00 98.1 62 18 129/55 (79) 95 11/14/20 12:00 63 11/14/20 12:00 97.6 62 18 124/103 (110) 94 11/14/20 09:00 Room Air 11/14/20 08:45 74 125/51 11/14/20 08:44 74 125/51 11/14/20 08:00 97.7 74 18 125/51 (75) 92 11/14/20 08:00 66 11/14/20 04:00 60 11/14/20 04:00 97.4 54 16 127/54 (78) 94 11/14/20 00:00 97.4 54 16 115/55 (75) 93 11/14/20 00:00 54 Intake and Output 11/13/20 11/14/20 19:00 07:00 Intake Total 860 ml 150 ml Balance 860 ml 150 ml Intake Oral 860 ml 150 ml # Voids 3 3 # Bowel Movements 2 Laboratory Tests 11/14/20 04:10: White Blood Count 8.5, Red Blood Count 2.70L, Hemoglobin 8.0L, Hematocrit 24.3L, Mean Corpuscular Volume 90, Mean Corpuscular Hemoglobin 29.6, Mean Corpuscular Hemoglobin Concent 32.8, Red Cell Distribution Width 13.2, Platelet Count 209, Mean Platelet Volume 6.2L, Neutrophils (%) (Auto) 84.7H, Lymphocytes (%) (Auto) 7.6L, Monocytes (%) (Auto) 6.2, Eosinophils (%) (Auto) 1.1, Basophils (%) (Auto) 0.4, Sodium Level 136, Potassium Level 4.1, Chloride Level 103, Carbon Dioxide Level 27, Anion Gap 6, Blood Urea Nitrogen 60H, Creatinine 3.2H, Estimat Glomerular Filtration Rate 19.0, Glucose Level 117H, Uric Acid 5.4, Calcium Level 7.7L, Phosphorus Level 4.4, Magnesium Level 2.1, Total Bilirubin 0.5, Aspartate Amino Transf (AST/SGOT) 22, Alanine Aminotransferase (ALT/SGPT) 35, Alkaline Phosphatase 72, C-Reactive Protein, Quantitative 0.9, Pro-B-Type Natriuretic Peptide 1026H, Total Protein 4.9L, Albumin 1.7L, Globulin 3.2, Albumin/Globulin Ratio 0.5L 11/14/20 04:59: POC Whole Blood Glucose 127H 11/14/20 11:25: POC Whole Blood Glucose 354H 11/14/20 16:54: POC Whole Blood Glucose 171H 11/14/20 21:22: POC Whole Blood Glucose 214H Height (Feet): 5 Height (Inches): 5.00 Weight (Pounds): 150 Assessment/Plan Problem List: (1) Renal failure (ARF), acute on chronic ICD Codes: N17.9 - Acute kidney failure, unspecified; N18.9 - Chronic kidney disease, unspecified SNOMED: 444962750 (2) DKA (diabetic ketoacidoses) ICD Codes: E11.10 - Type 2 diabetes mellitus with ketoacidosis without coma SNOMED: 153279482, 99132025 (3) COVID-19 virus infection ICD Codes: U07.1 - COVID-19 SNOMED: 337769404 (4) Rhabdomyolysis ICD Codes: M62.82 - Rhabdomyolysis SNOMED: 457517764 (5) Diabetes mellitus out of control ICD Codes: E11.65 - Type 2 diabetes mellitus with hyperglycemia SNOMED: 21705580, 076697407 (6) Abnormal thyroid blood test ICD Codes: R79.89 - Other specified abnormal findings of blood chemistry SNOMED: 062905662, 354657242139966 (7) NSTEMI (non-ST elevated myocardial infarction) ICD Codes: I21.4 - Non-ST elevation (NSTEMI) myocardial infarction SNOMED: 38322881 Status: progressing, unchanged Assessment/Plan: covid + esrd anemia nstemi no fever obs dehydration sepsis Corey Soto MD Nov 14, 2020 21:48
--- NOTE | 2020-11-14 23:58 | Psychiatric Progress Note ---
Psychiatry Progress Note Psychiatry Progress Note Medications Current Medications Medications (Trade) Dose Ordered Sig/Manasa Route PRN Reason Start Time Stop Time Status Last Admin Dose Admin Acetaminophen (Tylenol) 500 mg Q4H PRN ORAL For Pain 11/01/20 01:00 12/01/20 00:59 11/01/20 18:50 Acetaminophen (Tylenol) 650 mg Q4H PRN RECTAL Temp >100.5 11/01/20 21:30 12/01/20 21:29 Allopurinol (Zyloprim) 200 mg DAILY ORAL 11/01/20 16:00 12/01/20 15:59 11/14/20 08:47 Amiodarone HCl (Cordarone) 200 mg DAILY ORAL 11/10/20 09:00 02/08/21 08:59 11/14/20 08:45 Chlorhexidine Gluconate (María Elena-Hex 2%) 1 applic DAILY@1999 TOPIC 11/04/20 20:00 02/02/21 19:59 11/14/20 21:29 Clonidine HCl (Catapres Tab) 0.1 mg Q4H PRN ORAL bp over 160 syst 10/31/20 17:45 01/29/21 17:44 11/01/20 09:20 Dextrose (Dextrose 50%) 25 ml Q30M PRN IV Hypoglycemia 11/01/20 07:15 01/30/21 07:14 Dextrose (Dextrose 50%) 50 ml Q30M PRN IV Hypoglycemia 11/01/20 07:15 01/30/21 07:14 Diltiazem HCl (Cardizem Tab) 90 mg BID ORAL 11/07/20 10:15 12/02/20 17:59 11/14/20 17:04 Docusate Sodium (Colace) 100 mg TWICE A DAY ORAL 10/31/20 18:00 11/30/20 17:59 11/14/20 17:04 Haloperidol Lactate (Haldol) 5 mg Q6H PRN IM Agitation 11/06/20 21:30 12/21/20 21:29 11/13/20 20:02 Insulin Aspart (NovoLOG) BEFORE MEALS AND HS SUBQ 11/01/20 11:30 01/30/21 11:29 11/14/20 21:30 Insulin Aspart (NovoLOG) 7 units NOVOTIAC SUBQ 11/14/20 11:50 01/30/21 11:49 11/14/20 17:02 Insulin Detemir (Levemir) 10 units QHS SUBQ 11/13/20 21:00 01/30/21 08:59 11/14/20 21:29 Methimazole (Tapazole) 10 mg DAILY ORAL 11/03/20 09:00 12/03/20 08:59 11/14/20 08:44 Metoprolol Tartrate (Lopressor) 50 mg Q12HR ORAL 11/01/20 21:00 01/30/21 20:59 11/14/20 21:28 Ondansetron HCl (Zofran) 4 mg Q6H PRN IVP Nausea & Vomiting 11/07/20 16:30 12/07/20 16:29 11/07/20 17:28 Pantoprazole (Protonix) 40 mg BID ORAL 10/31/20 18:00 11/30/20 17:44 11/14/20 17:04 Sitagliptin Phosphate (Januvia) 25 mg ACBREAKFAST ORAL 11/06/20 06:30 12/06/20 06:29 11/14/20 06:19 Tamsulosin HCl (Flomax) 0.4 mg BID ORAL 11/03/20 12:00 12/03/20 11:59 11/14/20 17:05 Vitamin D (Vitamin D) 5,000 unit DAILY ORAL 11/13/20 09:00 12/13/20 08:59 11/14/20 09:17 Neurological/Psychiatric: Reports: anxiety, depressed, emotional problems Allergies: Coded Allergies: No Known Allergies (Unverified , 10/31/20) Objective Data Height (Feet): 5 Height (Inches): 5.00 Weight (Pounds): 150 General Appearance: no apparent distress, lethargic Additional Comments: The patient is confused, disoriented, Arabic-speaking. Mood is agitated. Affect is flat. Thought process disorganized. Thought content, no suicidal, homicidal ideation. Cognition is impaired. Insight and judgment is impaired. ASSESSMENT: [place] I Acute toxic encephalopathy. Dementia. [place] II Deferred. [place] III COVID-19. [place] IV Low. [place] V 20 PLAN: 1. We will start the patient on soft restraints. 2. Continue to follow and readjust the meds. Assessment/Plan Status: progressing, unchanged Farhadi,Pantea MD Nov 14, 2020 23:58
[2020-11-15] VITALS: BP 123/55
[2020-11-15 04:00] VITALS: BP 116/49
[2020-11-15] MEDS: sitaGLIPtin 25mg tab ORAL SCH (06:40)
[2020-11-15] MEDS: NovoLOG Insulin Flexpen SUBQ SCH ×7 (06:44→21:03)
--- NOTE | 2020-11-15 07:05 | NUR ---
NURSE HAND-OFF REPORT: Important Events on Shift: Remains on bilateral soft wrist restraints; skin and circulation intact; urinal and fluids offered; Spoke to radha from lab and lab asistant around 0630 to get blood specimen for AM labs d/t pt hardstick and on restraints Patient Status: AOX2, stable Diet: Renal puree, thin liquids, crushed meds Pending Orders: N Pending Results/Labs: AM labs Pending MD notification:N Latest Vital Signs: Temperature 97.5 , Pulse 85 , B/P 140 /98 , Respiratory Rate 22 , O2 SAT 98 , Nasal Cannula, O2 Flow Rate 2.0 . Vital Sign Comment: stable EKG Rhythm: Sinus Rhythm Rhythm change?: N Notified?: N Response: Latest Bhat Fall Score: 50 Fall Risk: High Risk Safety Measures: Call light Within Reach, Bed Alarm Zone 1, Side Rails Side Rails x3, Bed position Low and Locked. Fall Precautions: Yellow Socks Yellow Gown Report given to ARPITA Johnson.
--- NOTE | 2020-11-15 07:15 | NUR ---
NURSE NOTES: Received report from ARPITA Crabtree. Patient is AO x2 in bed, asleep at this time. No pain or discomfort noted at this time. Patient on Bilateral soft wrist restraint for safety and pulling out medical devices. Patient with R IJ triple lumen patent and intact. Bed in lowest position, locked with side rails x2 up. Call light within reach.
--- NOTE | 2020-11-15 07:42 | Surgery Progress Note ---
Surgery Progress Note Subjective Procedure Performed Right femoral temporary hemodialysis catheter insertion Additional Comments pending labs no acute events ? removal HD cath soon confused at times requires restraints diet okay Objective Last 24 Hour Vital Signs Date Time Temp Pulse Resp B/P (MAP) Pulse Ox O2 Delivery O2 Flow Rate FiO2 11/15/20 04:00 64 11/15/20 04:00 96.3 64 20 116/49 (71) 94 11/15/20 00:00 63 11/15/20 00:00 98.7 65 20 123/55 (77) 93 11/14/20 21:28 70 125/50 11/14/20 21:00 Room Air 11/14/20 20:00 66 11/14/20 20:00 98.9 66 20 125/50 (75) 92 11/14/20 17:04 52 129/55 11/14/20 16:00 52 11/14/20 16:00 98.1 62 18 129/55 (79) 95 11/14/20 12:00 63 11/14/20 12:00 97.6 62 18 124/103 (110) 94 11/14/20 09:00 Room Air 11/14/20 08:45 74 125/51 11/14/20 08:44 74 125/51 11/14/20 08:00 97.7 74 18 125/51 (75) 92 11/14/20 08:00 66 I&O Intake and Output 11/14/20 11/15/20 19:00 07:00 Intake Total 480 ml 360 ml Output Total 400 ml Balance 480 ml -40 ml Intake Oral 480 ml 360 ml Output Urine Total 400 ml # Voids 3 Dressing: saturated Cardiovascular: RSR Respiratory: decreased breath sounds Abdomen: soft, non-tender, present bowel sounds, non-distended Extremities: no edema, no tenderness, no cyanosis Laboratory Tests Test 11/14/20 11:25 11/14/20 16:54 11/14/20 21:22 11/15/20 06:20 POC Whole Blood Glucose 354 MG/DL (74-106) H 171 MG/DL (74-106) H 214 MG/DL (74-106) H 250 MG/DL (74-106) H Plan Problems: (1) DKA (diabetic ketoacidoses) (2) Renal failure (ARF), acute on chronic Assessment & Plan: s/p temp HD line recovering plan remove line soon (3) COVID-19 virus infection Assessment & Plan: 75-year-old male Covid positive renal insufficiency recently had temporary dialysis catheter placement develop leukocytosis soon after. V itals noted. Exam stable. Catheter was evaluated no acute active inflammatory or infectious process identified. Catheter is clean dry intact. The dressings are not saturated. There is no active bleeding identified. There is no signs of active infection. Leukocytosis anterior collated to medications currently given for COVID-19 infection. Will monitor closely to ensure no active development of infection or related to catheter placement. Thank you for let me participate patient's care will follow with recommendations trend leukocytosis cont dressings cont care plan as noted cont HD trend renal function (4) Rhabdomyolysis Assessment & Plan: improved resuscitated no n/v tolerating diet labs improved likely secondary to down DAILY ESTIMATED NEEDS: Needs based on DM, pulmonary 68.4kg 25-30 kcals/kg 9341-4324 total kcals 1-1.5 g protein/kg 68-102 g total protein 25-30 mL/kg 5332-8158 total fluid mLs NUTRITION DIAGNOSIS: Altered nutrition related lab values r/t DKA as evidenced by Uglu 4+ on adm, small acetone detected, BG 1087 upon adm-> now improved, A1C 8.1. CURRENT DIET: Renal/ pureed moist+ Ensure TID PO DIET RECOMMENDATIONS: RENAL/ CCHO MED diet (texture as tolerated) ADDITIONAL RECOMMENDATIONS: 1) Monitor renal fxn and lytes, continuity of HD last HD 11/08, K, phos, mag wnl 2) Monitor BGs closely for hypoglycemia w/ insulin regimen 3) Maintain calibrated bed scale wts 4) Nephrovite x 1 5) Monitor for continued improved intake - rec to decrease HPN to QD at this time. Rec Nepro (5) Diabetes mellitus out of control (6) Abnormal thyroid blood test (7) NSTEMI (non-ST elevated myocardial infarction) Norberto Steele Nov 15, 2020 07:42
--- NOTE | 2020-11-15 07:58 | General Progress Note ---
Subjective ROS Limited/Unobtainable: Yes Allergies: Coded Allergies: No Known Allergies (Unverified , 10/31/20) Subjective events noted interval notes reviewed glucose values improved Item Value Date Time Bedside Blood Glucose 250 mg/dl H 11/15/20 0644 Bedside Blood Glucose 214 mg/dl H 11/14/20 2130 Bedside Blood Glucose 171 mg/dl H 11/14/20 1702 Bedside Blood Glucose 354 mg/dl H 11/14/20 1141 Bedside Blood Glucose 127 mg/dl H 11/14/20 0622 Objective Last 24 Hour Vital Signs Date Time Temp Pulse Resp B/P (MAP) Pulse Ox O2 Delivery O2 Flow Rate FiO2 11/15/20 04:00 64 11/15/20 04:00 96.3 64 20 116/49 (71) 94 11/15/20 00:00 63 11/15/20 00:00 98.7 65 20 123/55 (77) 93 11/14/20 21:28 70 125/50 11/14/20 21:00 Room Air 11/14/20 20:00 66 11/14/20 20:00 98.9 66 20 125/50 (75) 92 11/14/20 17:04 52 129/55 11/14/20 16:00 52 11/14/20 16:00 98.1 62 18 129/55 (79) 95 11/14/20 12:00 63 11/14/20 12:00 97.6 62 18 124/103 (110) 94 11/14/20 09:00 Room Air 11/14/20 08:45 74 125/51 11/14/20 08:44 74 125/51 11/14/20 08:00 97.7 74 18 125/51 (75) 92 11/14/20 08:00 66 Intake and Output 11/14/20 11/15/20 19:00 07:00 Intake Total 480 ml 360 ml Output Total 400 ml Balance 480 ml -40 ml Intake Oral 480 ml 360 ml Output Urine Total 400 ml # Voids 3 Laboratory Tests 11/14/20 11:25: POC Whole Blood Glucose 354H 11/14/20 16:54: POC Whole Blood Glucose 171H 11/14/20 21:22: POC Whole Blood Glucose 214H 11/15/20 06:20: POC Whole Blood Glucose 250H 11/15/20 07:40: White Blood Count [Pending], Red Blood Count [Pending], Hemoglobin [Pending], Hematocrit [Pending], Mean Corpuscular Volume [Pending], Mean Corpuscular Hemoglobin [Pending], Mean Corpuscular Hemoglobin Concent [Pending], Red Cell Distribution Width [Pending], Platelet Count [Pending], Mean Platelet Volume [Pending], Neutrophils (%) (Auto) [Pending], Lymphocytes (%) (Auto) [Pending], M onocytes (%) (Auto) [Pending], Eosinophils (%) (Auto) [Pending], Basophils (%) (Auto) [Pending], Sodium Level [Pending], Potassium Level [Pending], Chloride Level [Pending], Carbon Dioxide Level [Pending], Blood Urea Nitrogen [Pending], Creatinine [Pending], Estimat Glomerular Filtration Rate [Pending], Glucose Level [Pending], Calcium Level [Pending], Phosphorus Level [Pending], Total Bilirubin [Pending], Aspartate Amino Transf (AST/SGOT) [Pending], Alanine Aminotransferase (ALT/SGPT) [Pending], Alkaline Phosphatase [Pending], C- Reactive Protein, Quantitative [Pending], Pro-B-Type Natriuretic Peptide [Pending], Total Protein [Pending], Albumin [Pending], Globulin [Pending] Height (Feet): 5 Height (Inches): 5.00 Weight (Pounds): 150 Objective Current Medications Medications (Trade) Dose Ordered Sig/Manasa Route PRN Reason Start Time Stop Time Status Last Admin Dose Admin Acetaminophen (Tylenol) 500 mg Q4H PRN ORAL For Pain 11/01/20 01:00 12/01/20 00:59 11/01/20 18:50 Acetaminophen (Tylenol) 650 mg Q4H PRN RECTAL Temp >100.5 11/01/20 21:30 12/01/20 21:29 Allopurinol (Zyloprim) 200 mg DAILY ORAL 11/01/20 16:00 12/01/20 15:59 11/14/20 08:47 Amiodarone HCl (Cordarone) 200 mg DAILY ORAL 11/10/20 09:00 02/08/21 08:59 11/14/20 08:45 Chlorhexidine Gluconate (María Elena-Hex 2%) 1 applic DAILY@2000 TOPIC 11/04/20 20:00 02/02/21 19:59 11/14/20 21:29 Clonidine HCl (Catapres Tab) 0.1 mg Q4H PRN ORAL bp over 160 syst 10/31/20 17:45 01/29/21 17:44 11/01/20 09:20 Dextrose (Dextrose 50%) 25 ml Q30M PRN IV Hypoglycemia 11/01/20 07:15 01/30/21 07:14 Dextrose (Dextrose 50%) 50 ml Q30M PRN IV Hypoglycemia 11/01/20 07:15 01/30/21 07:14 Diltiazem HCl (Cardizem Tab) 90 mg BID ORAL 11/07/20 10:15 12/02/20 17:59 11/14/20 17:04 Docusate Sodium (Colace) 100 mg TWICE A DAY ORAL 10/31/20 18:00 11/30/20 17:59 11/14/20 17:04 Haloperidol Lactate (Haldol) 5 mg Q6H PRN IM Agitation 11/06/20 21:30 12/21/20 21:29 11/13/20 20:02 Insulin Aspart (NovoLOG) BEFORE MEALS AND HS SUBQ 11/01/20 11:30 01/30/21 11:29 11/15/20 06:44 Insulin Aspart (NovoLOG) 7 units NOVOTIAC SUBQ 11/14/20 11:50 01/30/21 11:49 11/15/20 06:44 Insulin Detemir (Levemir) 10 units QHS SUBQ 11/13/20 21:00 01/30/21 08:59 11/14/20 21:29 Methimazole (Tapazole) 10 mg DAILY ORAL 11/03/20 09:00 12/03/20 08:59 11/14/20 08:44 Metoprolol Tartrate (Lopressor) 50 mg Q12HR ORAL 11/01/20 21:00 01/30/21 20:59 11/14/20 21:28 Ondansetron HCl (Zofran) 4 mg Q6H PRN IVP Nausea & Vomiting 11/07/20 16:30 12/07/20 16:29 11/07/20 17:28 Pantoprazole (Protonix) 40 mg BID ORAL 10/31/20 18:00 11/30/20 17:44 11/14/20 17:04 Sitagliptin Phosphate (Januvia) 25 mg ACBREAKFAST ORAL 11/06/20 06:30 12/06/20 06:29 11/15/20 06:40 Tamsulosin HCl (Flomax) 0.4 mg BID ORAL 11/03/20 12:00 12/03/20 11:59 11/14/20 17:05 Vitamin D (Vitamin D) 5,000 unit DAILY ORAL 11/13/20 09:00 12/13/20 08:59 11/14/20 09:17 Assessment/Plan Problem List: (1) Abnormal thyroid blood test ICD Codes: R79.89 - Other specified abnormal findings of blood chemistry SNOMED: 892627413, 275095329107605 (2) Diabetes mellitus out of control ICD Codes: E11.65 - Type 2 diabetes mellitus with hyperglycemia SNOMED: 06576273, 124657269 (3) Renal failure (ARF), acute on chronic ICD Codes: N17.9 - Acute kidney failure, unspecified; N18.9 - Chronic kidney disease, unspecified SNOMED: 430733625 (4) COVID-19 virus infection ICD Codes: U07.1 - COVID-19 SNOMED: 586071501 (5) DKA (diabetic ketoacidoses) ICD Codes: E11.10 - Type 2 diabetes mellitus with ketoacidosis without coma SNOMED: 855098717, 73476458 (6) NSTEMI (non-ST elevated myocardial infarction) ICD Codes: I21.4 - Non-ST elevation (NSTEMI) myocardial infarction SNOMED: 74173789 Status: progressing, unchanged Assessment/Plan: continue Levemir 10 units qhs continue Novolog 7 units ac tid continue Novolog sliding scale ac hs continue Januvia 25 mg daily continue Tapazole 10 mg daily TSI pending Markus Tamez MD Nov 15, 2020 07:58
[2020-11-15 08:00] VITALS: BP 140/98
[2020-11-15 08:15] LABS: BASOPHILS % (AUTO) 0.6 % (0.0-2.0); EOSINOPHILS % (AUTO) 1.4 % (0.0-3.0); HEMATOCRIT 24.5 % (42.0-52.0); LYMPHOCYTES % (AUTO) 8.9 % (20.0-45.0); MEAN CORPUSCULAR VOLUME 91 FL (80-99); NEUTROPHILS % (AUTO) 83.9 % (45.0-75.0); PLATELET COUNT 151 K/UL (150-450); RED BLOOD COUNT 2.69 M/UL (4.70-6.10); RED CELL DISTRIBUTION WIDTH 12.7 % (11.6-14.8); WHITE BLOOD COUNT 8.5 K/UL (4.8-10.8)
[2020-11-15] MEDS: Vitamin D 1000 units Tab ORAL SCH (08:50)
[2020-11-15] MEDS: dilTIAZem HCl 90mg tab ORAL SCH ×2 (08:50→17:22)
[2020-11-15] MEDS: Allopurinol 100mg Tab ORAL SCH (08:51)
[2020-11-15] MEDS: Docusate 100mg cap ORAL SCH ×2 (08:51→17:23)
[2020-11-15] MEDS: Metoprolol Tartrate 50mg tab ORAL SCH ×2 (08:51→21:01)
[2020-11-15] MEDS: Amiodarone 200mg tab ORAL SCH (08:51)
[2020-11-15] MEDS: methIMAzole 10mg tab ORAL SCH (08:51)
[2020-11-15] MEDS: Tamsulosin 0.4mg cap ORAL SCH ×2 (08:51→17:23)
[2020-11-15] MEDS: Haloperidol 5mg/ml Inj IM PRN (08:52)
[2020-11-15 08:55] LABS: ALBUMIN 1.7 G/DL (3.4-5.0); ALBUMIN/GLOBULIN RATIO 0.5 (1.0-2.7); BILIRUBIN,TOTAL 0.3 MG/DL (0.2-1.0); CALCIUM 7.9 MG/DL (8.5-10.1); CREATININE 3.2 MG/DL (0.55-1.30); PHOSPHORUS 3.5 MG/DL (2.5-4.9); POTASSIUM 4.1 MMOL/L (3.5-5.1)
--- NOTE | 2020-11-15 09:53 | Cardiac Electrophysiology PN ---
Assessment/Plan Assessment/Plan 1. NSTEMI with troponin of 0.25 and 0.35 in this patient with DKA as well as atrial flutter with rapid ventricular response. On metoprolol 50 mg b.i.d. EF 65% 2. Atrial flutter with RVR On metoprolol 50 mg bid, Cardizem 90 bid and Amiodarone 200 po daily Eliquis held for hematuria 3. Diabetic ketoacidosis with glucose of more than 1000. 4. Accelerated hypertension. On Lopressor 50 bid and Cardizem 90 bid 5. COVID positive pneumonia. 6. Acute Renal failure in the setting of total CK of 1900, maybe rhabdomyolysis- induced renal failure. On HD via RFV Yazan by Dr. Buckley. RFV Yazan pulled out by patient. S/P New Yazan on 11/11/20 DW RN Subjective Subjective Pulled out his RFV Yazan catheter after HD 11/08/20. S/P new Yazan catheter placement 11/11/20. In restraints in covid isolation. On RA In SR on Amio, Cardizem and metoprolol. Off Eliquis due to hematuria Objective Last 24 Hour Vital Signs Date Time Temp Pulse Resp B/P (MAP) Pulse Ox O2 Delivery O2 Flow Rate FiO2 11/15/20 08:51 85 140/98 11/15/20 08:50 85 140/98 11/15/20 08:00 97.5 85 22 140/98 (112) 98 11/15/20 04:00 64 11/15/20 04:00 96.3 64 20 116/49 (71) 94 11/15/20 00:00 63 11/15/20 00:00 98.7 65 20 123/55 (77) 93 11/14/20 21:28 70 125/50 11/14/20 21:00 Room Air 11/14/20 20:00 66 11/14/20 20:00 98.9 66 20 125/50 (75) 92 11/14/20 17:04 52 129/55 11/14/20 16:00 52 11/14/20 16:00 98.1 62 18 129/55 (79) 95 11/14/20 12:00 63 11/14/20 12:00 97.6 62 18 124/103 (110) 94 Intake and Output 11/14/20 11/15/20 19:00 07:00 Intake Total 480 ml 360 ml Output Total 400 ml Balance 480 ml -40 ml Intake Oral 480 ml 360 ml Output Urine Total 400 ml # Voids 3 Laboratory Tests Test 11/14/20 11:25 11/14/20 16:54 11/14/20 21:22 11/15/20 06:20 POC Whole Blood Glucose 354 MG/DL (74-106) H 171 MG/DL (74-106) H 214 MG/DL (74-106) H 250 MG/DL (74-106) H Test 11/15/20 07:40 White Blood Count 8.5 K/UL (4.8-10.8) Red Blood Count 2.69 M/UL (4.70-6.10) L Hemoglobin 8.0 G/DL (14.2-18.0) L Hematocrit 24.5 % (42.0-52.0) L Mean Corpuscular Volume 91 FL (80-99) Mean Corpuscular Hemoglobin 29.7 PG (27.0-31.0) Mean Corpuscular Hemoglobin Concent 32.6 G/DL (32.0-36.0) Red Cell Distribution Width 12.7 % (11.6-14.8) Platelet Count 151 K/UL (150-450) Mean Platelet Volume 6.3 FL (6.5-10.1) L Neutrophils (%) (Auto) 83.9 % (45.0-75.0) H Lymphocytes (%) (Auto) 8.9 % (20.0-45.0) L Monocytes (%) (Auto) 5.0 % (1.0-10.0) Eosinophils (%) (Auto) 1.4 % (0.0-3.0) Basophils (%) (Auto) 0.6 % (0.0-2.0) Sodium Level 136 MMOL/L (136-145) Potassium Level 4.1 MMOL/L (3.5-5.1) Chloride Level 103 MMOL/L (98-107) Carbon Dioxide Level 26 MMOL/L (21-32) Anion Gap 7 mmol/L (5-15) Blood Urea Nitrogen 52 mg/dL (7-18) H Creatinine 3.2 MG/DL (0.55-1.30) H Estimat Glomerular Filtration Rate 19.0 mL/min (>60) Glucose Level 193 MG/DL (74-106) H Calcium Level 7.9 MG/DL (8.5-10.1) L Phosphorus Level 3.5 MG/DL (2.5-4.9) Total Bilirubin 0.3 MG/DL (0.2-1.0) Aspartate Amino Transf (AST/SGOT) 19 U/L (15-37) Alanine Aminotransferase (ALT/SGPT) 33 U/L (12-78) Alkaline Phosphatase 81 U/L (46-116) C-Reactive Protein, Quantitative 1.8 mg/dL (0.00-0.90) H Pro-B-Type Natriuretic Peptide 934 pg/mL (0-125) H Total Protein 5.0 G/DL (6.4-8.2) L Albumin 1.7 G/DL (3.4-5.0) L Globulin 3.3 g/dL Albumin/Globulin Ratio 0.5 (1.0-2.7) L Objective HEAD AND NECK: Shows no JVD. LUNGS: Clear. CARDIOVASCULAR: Shows regular S1 and S2 with no gallop. ABDOMEN: Soft. EXTREMITIES: Right Femoral Yazan is pulled out. No pitting edema. Sivakumar Escalante MD Nov 15, 2020 09:53
--- NOTE | 2020-11-15 10:38 | NUR ---
CHARGE NURSE NOTE: Spoke with . No orders for Hemodialysis given.
[2020-11-15 12:00] VITALS: BP 123/87
--- NOTE | 2020-11-15 12:01 | Pulmonology Progress Note ---
Subjective ROS Limited/Unobtainable: Yes Interval Events: none major reported per nursing Constitutional: Denies: fever Gastrointestinal/Abdominal: Reports: diarrhea - C. diff negative Psychiatric: Reports: other - on restraint Allergies: Coded Allergies: No Known Allergies (Unverified , 10/31/20) Objective Last 24 Hour Vital Signs Date Time Temp Pulse Resp B/P (MAP) Pulse Ox O2 Delivery O2 Flow Rate FiO2 11/15/20 09:00 Room Air 11/15/20 08:51 85 140/98 11/15/20 08:50 85 140/98 11/15/20 08:00 97.5 85 22 140/98 (112) 98 11/15/20 08:00 76 11/15/20 04:00 64 11/15/20 04:00 96.3 64 20 116/49 (71) 94 11/15/20 00:00 63 11/15/20 00:00 98.7 65 20 123/55 (77) 93 11/14/20 21:28 70 125/50 11/14/20 21:00 Room Air 11/14/20 20:00 66 11/14/20 20:00 98.9 66 20 125/50 (75) 92 11/14/20 17:04 52 129/55 11/14/20 16:00 52 11/14/20 16:00 98.1 62 18 129/55 (79) 95 11/14/20 12:00 63 11/14/20 12:00 97.6 62 18 124/103 (110) 94 Intake and Output 11/14/20 11/15/20 19:00 07:00 Intake Total 480 ml 360 ml Output Total 400 ml Balance 480 ml -40 ml Intake Oral 480 ml 360 ml Output Urine Total 400 ml # Voids 3 Objective now on room air General Appearance: WD/WN, no acute distress HEENT: atraumatic Respiratory: chest wall non-tender Cardiovascular: normal rate, regular rhythm Abdomen: soft, non tender Laboratory Tests 11/14/20 16:54: POC Whole Blood Glucose 171H 11/14/20 21:22: POC Whole Blood Glucose 214H 11/15/20 06:20: POC Whole Blood Glucose 250H 11/15/20 07:40: White Blood Count 8.5, Red Blood Count 2.69L, Hemoglobin 8.0L, Hematocrit 24.5L, Mean Corpuscular Volume 91, Mean Corpuscular Hemoglobin 29.7, Mean Corpuscular Hemoglobin Concent 32.6, Red Cell Distribution Width 12.7, Platelet Count 151, Mean Platelet Volume 6.3L, Neutrophils (%) (Auto) 83.9H, Lymphocytes (%) (Auto) 8.9L, Monocytes (%) (Auto) 5.0, Eosinophils (%) (Auto) 1.4, Basophils (%) (Auto) 0.6, Sodium Level 136, Potassium Level 4.1, Chloride Level 103, Carbon Dioxide Level 26, Anion Gap 7, Blood Urea Nitrogen 52H, Creatinine 3.2H, Estimat Glomerular Filtration Rate 19.0, Glucose Level 193H, Calcium Level 7.9L, Phosphorus Level 3.5, Total Bilirubin 0.3, Aspartate Amino Transf (AST/SGOT) 19, Alanine Aminotransferase (ALT/SGPT) 33, Alkaline Phosphatase 81, C-Reactive Protein, Quantitative 1.8H, Pro-B-Type Natriuretic Peptide 934H, Total Protein 5.0L, Albumin 1.7L, Globulin 3.3, Albumin/Globulin Ratio 0.5L Current Medications Medications (Trade) Dose Ordered Sig/Manasa Route PRN Reason Start Time Stop Time Status Last Admin Dose Admin Acetaminophen (Tylenol) 500 mg Q4H PRN ORAL For Pain 11/01/20 01:00 12/01/20 00:59 11/01/20 18:50 Acetaminophen (Tylenol) 650 mg Q4H PRN RECTAL Temp >100.5 11/01/20 21:30 12/01/20 21:29 Allopurinol (Zyloprim) 200 mg DAILY ORAL 11/01/20 16:00 12/01/20 15:59 11/15/20 08:51 Amiodarone HCl (Cordarone) 200 mg DAILY ORAL 11/10/20 09:00 02/08/21 08:59 11/15/20 08:51 Chlorhexidine Gluconate (María Elena-Hex 2%) 1 applic DAILY@1999 TOPIC 11/04/20 20:00 02/02/21 19:59 11/14/20 21:29 Clonidine HCl (Catapres Tab) 0.1 mg Q4H PRN ORAL bp over 160 syst 10/31/20 17:45 01/29/21 17:44 11/01/20 09:20 Dextrose (Dextrose 50%) 25 ml Q30M PRN IV Hypoglycemia 11/01/20 07:15 01/30/21 07:14 Dextrose (Dextrose 50%) 50 ml Q30M PRN IV Hypoglycemia 11/01/20 07:15 01/30/21 07:14 Diltiazem HCl (Cardizem Tab) 90 mg BID ORAL 11/07/20 10:15 12/02/20 17:59 11/15/20 08:50 Docusate Sodium (Colace) 100 mg TWICE A DAY ORAL 10/31/20 18:00 11/30/20 17:59 11/15/20 08:51 Haloperidol Lactate (Haldol) 5 mg Q6H PRN IM Agitation 11/06/20 21:30 12/21/20 21:29 11/15/20 08:52 Insulin Aspart (NovoLOG) BEFORE MEALS AND HS SUBQ 11/01/20 11:30 01/30/21 11:29 11/15/20 06:44 Insulin Aspart (NovoLOG) 7 units NOVOTIAC SUBQ 11/14/20 11:50 01/30/21 11:49 11/15/20 06:44 Insulin Detemir (Levemir) 10 units QHS SUBQ 11/13/20 21:00 01/30/21 08:59 11/14/20 21:29 Methimazole (Tapazole) 10 mg DAILY ORAL 11/03/20 09:00 12/03/20 08:59 11/15/20 08:51 Metoprolol Tartrate (Lopressor) 50 mg Q12HR ORAL 11/01/20 21:00 01/30/21 20:59 11/15/20 08:51 Ondansetron HCl (Zofran) 4 mg Q6H PRN IVP Nausea & Vomiting 11/07/20 16:30 12/07/20 16:29 11/07/20 17:28 Pantoprazole (Protonix) 40 mg BID ORAL 10/31/20 18:00 11/30/20 17:44 11/15/20 08:51 Sitagliptin Phosphate (Januvia) 25 mg ACBREAKFAST ORAL 11/06/20 06:30 12/06/20 06:29 11/15/20 06:40 Tamsulosin HCl (Flomax) 0.4 mg BID ORAL 11/03/20 12:00 12/03/20 11:59 11/15/20 08:51 Vitamin D (Vitamin D) 5,000 unit DAILY ORAL 11/13/20 09:00 12/13/20 08:59 11/15/20 08:50 Assessment/Plan Assessment/Plan 1. Non-ST elevation myocardial infarction. - cardiology following 2. Diabetic ketoacidosis - seen by endocrinology - continue fluids - on insulin 3. Atrial flutter with rapid ventricular response. - Continue metoprolol 50 mg b.i.d. 4. COVID positive pneumonia. - s/p Decadron (11/03-11/12) - Supplemental O2 - saturating at 94% on RA; weaned off oxygen - CXR 11/04 developing b/l infilitrates 5. Renal failure - nephrology following - pt pulled out femoral HD cath, s/p new IJ 6. Accelerated hypertension. 7. Hyperthyroidism - Dr. Tamez following 8. Diarrhea - C. diff negative DVT ppx - s/p Eliquis - We will restart low dose Lovenox given eGFR <30 The care for this patient was discussed with my supervising physician Time spent for this case was approximately 31 minutes Singh Buchanan Nov 15, 2020 12:01
--- NOTE | 2020-11-15 12:06 | Nephrology Progress Note ---
Assessment/Plan Problem List: (1) Renal failure (ARF), acute on chronic (2) DKA (diabetic ketoacidoses) (3) COVID-19 virus infection (4) Rhabdomyolysis (5) Abnormal thyroid blood test (6) NSTEMI (non-ST elevated myocardial infarction) Assessment 75-year-old Yi male Covid positive Acute renal failure, most likely superimposed on chronic kidney disease Diabetes mellitus, presents with severe hyperglycemia and DKA History of hypertension Plan November 15: Labs reviewed. Serum creatinine unchanged. Calculated creatinine clearance 19 mL/h. No dialysis needed at this time. November 14: Lab reviewed. Serum creatinine 3.2 unchanged. No need for dialysis. Continue per consultants. November 13: Lab reviewed. Serum creatinine 3.2. No need for dialysis today. Continue to monitor renal parameters. Continue per consultants. November 12: Labs reviewed. Serum creatinine 3. No dialysis needed today. Continue to monitor renal parameters. November 11: Labs reviewed. Serum creatinine higher. Due for placement of a Nontunneled catheter today. We will schedule dialysis as needed. Patient's leukocytosis gradually improving. November 10: Lab reviewed. Serum creatinine rising. We will proceed with placement of a nontunneled catheter tomorrow and dialysis. Patient has leukocytosis at this time. Continue per consultants. November 09: Labs reviewed. Patient was dialyzed yesterday. Patient pulled out the dialysis catheter last night. Renal parameters stable. Continue to monitor and if dialysis needed to place a new temporary catheter. Per orders. November 08: Labs reviewed. Serum creatinine is plateauing. Due for dialysis today. We will continue to monitor renal parameters and dialysis as needed. November 07: Labs reviewed. Serum creatinine rising. IV fluid discontinued. Dialysis for tomorrow. Continue per consultants. November 06: Labs reviewed. Blood pressure stable. Medication list reviewed. Dialysis as needed. November 05: Due for dialysis today. Labs are reviewed. Blood pressure is stable. Continue to monitor renal parameters. November 04: Patient was dialyzed yesterday. 1 L ultrafiltrated. Labs reviewed. Renal parameters stable. Will attempt dialysis again tomorrow. Medication list reviewed. November 03: Labs reviewed. Serum creatinine rising. Patient has hematuria. Patient on Eliquis. Will arrange for placement of dialysis catheter and attempt to dialyze. Will start Flomax since the patient could not have a Anand catheter. Continue to monitor renal parameters. Continue per consultants. Discussed with RN. Consent for placement of nontunneled catheter ordered. Patient is also on Tapazole for high thyroid hormone. CPK is lowering. November 02: Labs reviewed. Serum creatinine up to 4. In S DU now. On Cardizem drip. Measured creatinine clearance . Patient may lead towards dialysis. Continue to monitor renal parameters. November 01: Renal parameters improving. Blood sugar is improving. Continue to monitor electrolytes renal parameters and urine output. Aim to control blood sugar and blood pressure. Avoid nephrotoxic's. Monitor CPK as it is elevated. Previously: Anand catheter Blood sugar control Slow hydration Monitor renal parameters Kidney ultrasound no hydronephrosis 2D echocardiogram ejection fraction 60 to 65%. Per orders Subjective ROS Limited/Unobtainable: No Constitutional: Reports: malaise, weakness Objective Objective Last 24 Hour Vital Signs Date Time Temp Pulse Resp B/P (MAP) Pulse Ox O2 Delivery O2 Flow Rate FiO2 11/15/20 12:00 98.7 64 18 123/87 (99) 98 11/15/20 09:00 Room Air 11/15/20 08:51 85 140/98 11/15/20 08:50 85 140/98 11/15/20 08:00 97.5 85 22 140/98 (112) 98 11/15/20 08:00 76 11/15/20 04:00 64 11/15/20 04:00 96.3 64 20 116/49 (71) 94 11/15/20 00:00 63 11/15/20 00:00 98.7 65 20 123/55 (77) 93 11/14/20 21:28 70 125/50 11/14/20 21:00 Room Air 11/14/20 20:00 66 11/14/20 20:00 98.9 66 20 125/50 (75) 92 11/14/20 17:04 52 129/55 11/14/20 16:00 52 11/14/20 16:00 98.1 62 18 129/55 (79) 95 Intake and Output 11/14/20 11/15/20 19:00 07:00 Intake Total 480 ml 360 ml Output Total 400 ml Balance 480 ml -40 ml Intake Oral 480 ml 360 ml Output Urine Total 400 ml # Voids 3 Current Medications Medications (Trade) Dose Ordered Sig/Manasa Route PRN Reason Start Time Stop Time Status Last Admin Dose Admin Acetaminophen (Tylenol) 500 mg Q4H PRN ORAL For Pain 11/01/20 01:00 12/01/20 00:59 11/01/20 18:50 Acetaminophen (Tylenol) 650 mg Q4H PRN RECTAL Temp >100.5 11/01/20 21:30 12/01/20 21:29 Allopurinol (Zyloprim) 200 mg DAILY ORAL 11/01/20 16:00 12/01/20 15:59 11/15/20 08:51 Amiodarone HCl (Cordarone) 200 mg DAILY ORAL 11/10/20 09:00 02/08/21 08:59 11/15/20 08:51 Chlorhexidine Gluconate (María Elena-Hex 2%) 1 applic DAILY@2000 TOPIC 11/04/20 20:00 02/02/21 19:59 11/14/20 21:29 Clonidine HCl (Catapres Tab) 0.1 mg Q4H PRN ORAL bp over 160 syst 10/31/20 17:45 01/29/21 17:44 11/01/20 09:20 Dextrose (Dextrose 50%) 25 ml Q30M PRN IV Hypoglycemia 11/01/20 07:15 01/30/21 07:14 Dextrose (Dextrose 50%) 50 ml Q30M PRN IV Hypoglycemia 11/01/20 07:15 01/30/21 07:14 Diltiazem HCl (Cardizem Tab) 90 mg BID ORAL 11/07/20 10:15 12/02/20 17:59 11/15/20 08:50 Docusate Sodium (Colace) 100 mg TWICE A DAY ORAL 10/31/20 18:00 11/30/20 17:59 11/15/20 08:51 Haloperidol Lactate (Haldol) 5 mg Q6H PRN IM Agitation 11/06/20 21:30 12/21/20 21:29 11/15/20 08:52 Insulin Aspart (NovoLOG) BEFORE MEALS AND HS SUBQ 11/01/20 11:30 01/30/21 11:29 11/15/20 06:44 Insulin Aspart (NovoLOG) 7 units NOVOTIAC SUBQ 11/14/20 11:50 01/30/21 11:49 11/15/20 11:58 Insulin Detemir (Levemir) 10 units QHS SUBQ 11/13/20 21:00 01/30/21 08:59 11/14/20 21:29 Methimazole (Tapazole) 10 mg DAILY ORAL 11/03/20 09:00 12/03/20 08:59 11/15/20 08:51 Metoprolol Tartrate (Lopressor) 50 mg Q12HR ORAL 11/01/20 21:00 01/30/21 20:59 11/15/20 08:51 Ondansetron HCl (Zofran) 4 mg Q6H PRN IVP Nausea & Vomiting 11/07/20 16:30 12/07/20 16:29 11/07/20 17:28 Pantoprazole (Protonix) 40 mg BID ORAL 10/31/20 18:00 11/30/20 17:44 11/15/20 08:51 Sitagliptin Phosphate (Januvia) 25 mg ACBREAKFAST ORAL 11/06/20 06:30 12/06/20 06:29 11/15/20 06:40 Tamsulosin HCl (Flomax) 0.4 mg BID ORAL 11/03/20 12:00 12/03/20 11:59 11/15/20 08:51 Vitamin D (Vitamin D) 5,000 unit DAILY ORAL 11/13/20 09:00 12/13/20 08:59 11/15/20 08:50 Laboratory Tests 11/14/20 16:54: POC Whole Blood Glucose 171H 11/14/20 21:22: POC Whole Blood Glucose 214H 11/15/20 06:20: POC Whole Blood Glucose 250H 11/15/20 07:40: White Blood Count 8.5, Red Blood Count 2.69L, Hemoglobin 8.0L, Hematocrit 24.5L, Mean Corpuscular Volume 91, Mean Corpuscular Hemoglobin 29.7, Mean Corpuscular Hemoglobin Concent 32.6, Red Cell Distribution Width 12.7, Platelet Count 151, Mean Platelet Volume 6.3L, Neutrophils (%) (Auto) 83.9H, Lymphocytes (%) (Auto) 8.9L, Monocytes (%) (Auto) 5.0, Eosinophils (%) (Auto) 1.4, Basophils (%) (Auto) 0.6, Sodium Level 136, Potassium Level 4.1, Chloride Level 103, Carbon Dioxide Level 26, Anion Gap 7, Blood Urea Nitrogen 52H, Creatinine 3.2H, Estimat Glomerular Filtration Rate 19.0, Glucose Level 193H, Calcium Level 7.9L, Phos phorus Level 3.5, Total Bilirubin 0.3, Aspartate Amino Transf (AST/SGOT) 19, Alanine Aminotransferase (ALT/SGPT) 33, Alkaline Phosphatase 81, C-Reactive Protein, Quantitative 1.8H, Pro-B-Type Natriuretic Peptide 934H, Total Protein 5.0L, Albumin 1.7L, Globulin 3.3, Albumin/Globulin Ratio 0.5L Height (Feet): 5 Height (Inches): 5.00 Weight (Pounds): 150 General Appearance: no apparent distress Cardiovascular: normal rate Respiratory/Chest: decreased breath sounds Abdomen: distended Garth Buckley MD Nov 15, 2020 12:06
--- NOTE | 2020-11-15 14:00 | NUR ---
CASE MANAGEMENT:REVIEW 11/15/20 SI: KELLEY PNA. NSTEMI. AFLUTTER ACUTE RENAL FAILURE 98.7 64 18 123/87 98% ON RA H/H-8.0/24.5 BUN+52 CR+3.2 IS: CARDIZEM PO BID AMIODARONE PO QD LOVENOX SQ QD NOVOLOG SQ TID AC JANUVIA PO QAM SS INSULIN AC+HS LEVEMIR SQ QD FLOMAX PO BID TAPAZOLE PO QD LOPRESSOR PO Q12 PROTONIX PO BID : TELEMETRY STATUS DCP: FROM HOME PLAN: PULLED OUT RT FEMORAL CATH ON 11/09/20 RT INTERNAL JUGULAR CATH PLACED ON 11/11/20 LAST DIALYZED ON 11/08/20
[2020-11-15 16:00] VITALS: BP 125/61
--- NOTE | 2020-11-15 19:00 | NUR ---
NURSE NOTES: Received report from ARPITA Locke, noted AOX2, comfortable in bed, noted trying to get up despite being on bilateral soft wrist restraints, attended to pt needs; with R IJ central line dialysis catheter triple lumen, intact and patent, dry, skin and circulation intact on bilateral wrists; on room air, in no acute distress; accuchecks ACHS; will continue to monitor blood sugar levels; call light within reach, side rails x 3; bed alarm on; bed on locked and low position; will continue to monitor.
--- NOTE | 2020-11-15 19:22 | NUR ---
NURSE HAND-OFF REPORT: Important Events on Shift:NA Patient Status: Stable Diet: puree renal Pending Orders: NA Pending Results/Labs:NA Pending notification:NA Latest Vital Signs: Temperature 98.0 , Pulse 90 , B/P 125 /61 , Respiratory Rate 20 , O2 SAT 98 , Nasal Cannula, O2 Flow Rate 2.0 . Vital Sign Comment: Stable EKG Rhythm: Sinus Rhythm Rhythm change?: N MD Notified?: Amari MCQUEEN MD Response: Message left await call Latest Bhat Fall Score: 60 Fall Risk: High Risk Safety Measures: Call light Within Reach, Bed Alarm Zone 1, Side Rails Side Rails x3, Bed position Low and Locked. Fall Precautions: Yellow Socks Yellow Gown Door Sign Patient Fall Education Report given to ARPITA Crabtree.
--- NOTE | 2020-11-15 20:54 | General Progress Note ---
Subjective ROS Limited/Unobtainable: Yes Allergies: Coded Allergies: No Known Allergies (Unverified , 10/31/20) Objective Last 24 Hour Vital Signs Date Time Temp Pulse Resp B/P (MAP) Pulse Ox O2 Delivery O2 Flow Rate FiO2 11/15/20 17:22 90 125/61 11/15/20 16:00 98.0 80 20 125/61 (82) 98 11/15/20 16:00 90 11/15/20 12:00 79 11/15/20 12:00 98.7 64 18 123/87 (99) 98 11/15/20 09:00 Room Air 11/15/20 08:51 85 140/98 11/15/20 08:50 85 140/98 11/15/20 08:00 97.5 85 22 140/98 (112) 98 11/15/20 08:00 76 11/15/20 04:00 64 11/15/20 04:00 96.3 64 20 116/49 (71) 94 11/15/20 00:00 63 11/15/20 00:00 98.7 65 20 123/55 (77) 93 11/14/20 21:28 70 125/50 11/14/20 21:00 Room Air Intake and Output 11/14/20 11/15/20 19:00 07:00 Intake Total 480 ml 360 ml Output Total 400 ml Balance 480 ml -40 ml Intake Oral 480 ml 360 ml Output Urine Total 400 ml # Voids 3 Laboratory Tests 11/14/20 21:22: POC Whole Blood Glucose 214H 11/15/20 06:20: POC Whole Blood Glucose 250H 11/15/20 07:40: White Blood Count 8.5, Red Blood Count 2.69L, Hemoglobin 8.0L, Hematocrit 24.5L, Mean Corpuscular Volume 91, Mean Corpuscular Hemoglobin 29.7, Mean Corpuscular Hemoglobin Concent 32.6, Red Cell Distribution Width 12.7, Platelet Count 151, Mean Platelet Volume 6.3L, Neutrophils (%) (Auto) 83.9H, Lymphocytes (%) (Auto) 8.9L, Monocytes (%) (Auto) 5.0, Eosinophils (%) (Auto) 1.4, Basophils (%) (Auto) 0.6, Sodium Level 136, Potassium Level 4.1, Chloride Level 103, Carbon Dioxide Level 26, Anion Gap 7, Blood Urea Nitrogen 52H, Creatinine 3.2H, Estimat Glomerular Filtration Rate 19.0, Glucose Level 193H, Calcium Level 7.9L, Phosphorus Level 3.5, Total Bilirubin 0.3, Aspartate Amino Transf (AST/SGOT) 19, Alanine Aminotransferase (ALT/SGPT) 33, Alkaline Phosphatase 81, C-Reactive Protein, Quantitative 1.8H, Pro-B-Type Natriuretic Peptide 934H, Total Protein 5.0L, Albumin 1.7L, Globulin 3.3, Albumin/Globulin Ratio 0.5L 11/15/20 20:51: POC Whole Blood Glucose 257H Height (Feet): 5 Height (Inches): 5.00 Weight (Pounds): 150 Cardiovascular: normal rate Assessment/Plan Problem List: (1) Renal failure (ARF), acute on chronic ICD Codes: N17.9 - Acute kidney failure, unspecified; N18.9 - Chronic kidney disease, unspecified SNOMED: 060520316 (2) DKA (diabetic ketoacidoses) ICD Codes: E11.10 - Type 2 diabetes mellitus with ketoacidosis without coma SNOMED: 722298203, 00435769 (3) COVID-19 virus infection ICD Codes: U07.1 - COVID-19 SNOMED: 517941543 (4) Rhabdomyolysis ICD Codes: M62.82 - Rhabdomyolysis SNOMED: 809996554 (5) Diabetes mellitus out of control ICD Codes: E11.65 - Type 2 diabetes mellitus with hyperglycemia SNOMED: 00869915, 194890097 (6) Abnormal thyroid blood test ICD Codes: R79.89 - Other specified abnormal findings of blood chemistry SNOMED: 733937009, 568429202336963 (7) NSTEMI (non-ST elevated myocardial infarction) ICD Codes: I21.4 - Non-ST elevation (NSTEMI) myocardial infarction SNOMED: 79500094 Status: progressing, unchanged Assessment/Plan: covid + resp insuff afebrile sugar is improving reviewed chart esrd anemia dehydration sepsis Corey Soto MD Nov 15, 2020 20:54
[2020-11-15 21:00] VITALS: BP 152/68
[2020-11-15] MEDS: Dyna-Hex 2% Top Sol 2oz TOPIC SCH (21:00)
[2020-11-15] MEDS: Levemir Flexpen SUBQ SCH (21:04)
[2020-11-16] VITALS: BP 154/72
--- NOTE | 2020-11-16 00:12 | Psychiatric Progress Note ---
Psychiatry Progress Note Psychiatry Progress Note Medications Current Medications Medications (Trade) Dose Ordered Sig/Manasa Route PRN Reason Start Time Stop Time Status Last Admin Dose Admin Acetaminophen (Tylenol) 500 mg Q4H PRN ORAL For Pain 11/01/20 01:00 12/01/20 00:59 11/01/20 18:50 Acetaminophen (Tylenol) 650 mg Q4H PRN RECTAL Temp >100.5 11/01/20 21:30 12/01/20 21:29 Allopurinol (Zyloprim) 200 mg DAILY ORAL 11/01/20 16:00 12/01/20 15:59 11/15/20 08:51 Amiodarone HCl (Cordarone) 200 mg DAILY ORAL 11/10/20 09:00 02/08/21 08:59 11/15/20 08:51 Chlorhexidine Gluconate (María Elena-Hex 2%) 1 applic DAILY@2000 TOPIC 11/04/20 20:00 02/02/21 19:59 11/15/20 21:00 Clonidine HCl (Catapres Tab) 0.1 mg Q4H PRN ORAL bp over 160 syst 10/31/20 17:45 01/29/21 17:44 11/01/20 09:20 Dextrose (Dextrose 50%) 25 ml Q30M PRN IV Hypoglycemia 11/01/20 07:15 01/30/21 07:14 Dextrose (Dextrose 50%) 50 ml Q30M PRN IV Hypoglycemia 11/01/20 07:15 01/30/21 07:14 Diltiazem HCl (Cardizem Tab) 90 mg BID ORAL 11/07/20 10:15 12/02/20 17:59 11/15/20 17:22 Docusate Sodium (Colace) 100 mg TWICE A DAY ORAL 10/31/20 18:00 11/30/20 17:59 11/15/20 17:23 Enoxaparin Sodium (Lovenox) 30 mg DAILY SUBQ 11/16/20 09:00 02/14/21 08:59 Haloperidol Lactate (Haldol) 5 mg Q6H PRN IM Agitation 11/06/20 21:30 12/21/20 21:29 11/15/20 08:52 Insulin Aspart (NovoLOG) BEFORE MEALS AND HS SUBQ 11/01/20 11:30 01/30/21 11:29 11/15/20 21:03 Insulin Aspart (NovoLOG) 7 units NOVOTIAC SUBQ 11/14/20 11:50 01/30/21 11:49 11/15/20 16:55 Insulin Detemir (Levemir) 10 units QHS SUBQ 11/13/20 21:00 01/30/21 08:59 11/15/20 21:04 Methimazole (Tapazole) 10 mg DAILY ORAL 11/03/20 09:00 12/03/20 08:59 11/15/20 08:51 Metoprolol Tartrate (Lopressor) 50 mg Q12HR ORAL 11/01/20 21:00 01/30/21 20:59 11/15/20 21:01 Ondansetron HCl (Zofran) 4 mg Q6H PRN IVP Nausea & Vomiting 11/07/20 16:30 12/07/20 16:29 11/07/20 17:28 Pantoprazole (Protonix) 40 mg BID ORAL 10/31/20 18:00 11/30/20 17:44 11/15/20 17:23 Sitagliptin Phosphate (Januvia) 25 mg ACBREAKFAST ORAL 11/06/20 06:30 12/06/20 06:29 11/15/20 06:40 Tamsulosin HCl (Flomax) 0.4 mg BID ORAL 11/03/20 12:00 12/03/20 11:59 11/15/20 17:23 Vitamin D (Vitamin D) 5,000 unit DAILY ORAL 11/13/20 09:00 12/13/20 08:59 11/15/20 08:50 Neurological/Psychiatric: Reports: anxiety, depressed, emotional problems Allergies: Coded Allergies: No Known Allergies (Unverified , 10/31/20) Objective Data Height (Feet): 5 Height (Inches): 5.00 Weight (Pounds): 150 General Appearance: no apparent distress Additional Comments: The patient is confused, disoriented, Khmer-speaking. Mood is agitated. Affect is flat. Thought process disorganized. Thought content, no suicidal, homicidal ideation. Cognition is impaired. Insight and judgment is impaired. ASSESSMENT: Perry I Acute toxic encephalopathy. Dementia. Perry II Deferred. Perry III COVID-19. Perry IV Low. Perry V 20 PLAN: 1. We will start the patient on soft restraints. 2. Continue to follow and readjust the meds. Assessment/Plan Status: progressing, unchanged Brigido Singh MD Nov 16, 2020 00:12
[2020-11-16 04:00] VITALS: BP 137/65
[2020-11-16] MEDS: NovoLOG Insulin Flexpen SUBQ SCH ×8 (06:09→21:41)
[2020-11-16] MEDS: sitaGLIPtin 25mg tab ORAL SCH (06:09)
--- NOTE | 2020-11-16 06:27 | General Progress Note ---
Subjective ROS Limited/Unobtainable: Yes Allergies: Coded Allergies: No Known Allergies (Unverified , 10/31/20) Subjective events noted interval notes reviewed fasting glucose on lower side mealtime glucose on higher side Item Value Date Time Bedside Blood Glucose 85 mg/dl 11/16/20 0609 Bedside Blood Glucose 257 mg/dl H 11/15/20 2104 Bedside Blood Glucose 138 mg/dl H 11/15/20 1158 Bedside Blood Glucose 254 mg/dl H 11/15/20 1655 Bedside Blood Glucose 250 mg/dl H 11/15/20 0644 Objective Last 24 Hour Vital Signs Date Time Temp Pulse Resp B/P (MAP) Pulse Ox O2 Delivery O2 Flow Rate FiO2 11/16/20 04:00 89 11/16/20 04:00 98.7 89 19 137/65 (89) 93 11/16/20 00:00 75 11/16/20 00:00 97.2 75 18 154/72 (99) 93 11/15/20 21:01 99 152/68 11/15/20 21:00 Room Air 11/15/20 21:00 92 11/15/20 21:00 97.8 92 19 152/68 (96) 92 11/15/20 17:22 90 125/61 11/15/20 16:00 98.0 80 20 125/61 (82) 98 11/15/20 16:00 90 11/15/20 12:00 79 11/15/20 12:00 98.7 64 18 123/87 (99) 98 11/15/20 09:00 Room Air 11/15/20 08:51 85 140/98 11/15/20 08:50 85 140/98 11/15/20 08:00 97.5 85 22 140/98 (112) 98 11/15/20 08:00 76 Intake and Output 11/15/20 11/16/20 19:00 07:00 Intake Total 240 ml Balance 240 ml Intake Oral 240 ml # Voids 3 Laboratory Tests 11/15/20 07:40: White Blood Count 8.5, Red Blood Count 2.69L, Hemoglobin 8.0L, Hematocrit 24.5L, Mean Corpuscular Volume 91, Mean Corpuscular Hemoglobin 29.7, Mean Corpuscular Hemoglobin Concent 32.6, Red Cell Distribution Width 12.7, Platelet Count 151, Mean Platelet Volume 6.3L, Neutrophils (%) (Auto) 83.9H, Lymphocytes (%) (Auto) 8.9L, Monocytes (%) (Auto) 5.0, Eosinophils (%) (Auto) 1.4, Basophils (%) (Auto) 0.6, Sodium Level 136, Potassium Level 4.1, Chloride Level 103, Carbon Dioxide Level 26, Anion Gap 7, Blood Urea Nitrogen 52H, Creatinine 3.2H, Estimat Glome rular Filtration Rate 19.0, Glucose Level 193H, Calcium Level 7.9L, Phosphorus Level 3.5, Total Bilirubin 0.3, Aspartate Amino Transf (AST/SGOT) 19, Alanine Aminotransferase (ALT/SGPT) 33, Alkaline Phosphatase 81, C-Reactive Protein, Quantitative 1.8H, Pro-B-Type Natriuretic Peptide 934H, Total Protein 5.0L, Albumin 1.7L, Globulin 3.3, Albumin/Globulin Ratio 0.5L 11/15/20 20:51: POC Whole Blood Glucose 257H 11/16/20 06:08: POC Whole Blood Glucose 85 Height (Feet): 5 Height (Inches): 5.00 Weight (Pounds): 150 Objective Current Medications Medications (Trade) Dose Ordered Sig/Manasa Route PRN Reason Start Time Stop Time Status Last Admin Dose Admin Acetaminophen (Tylenol) 500 mg Q4H PRN ORAL For Pain 11/01/20 01:00 12/01/20 00:59 11/01/20 18:50 Acetaminophen (Tylenol) 650 mg Q4H PRN RECTAL Temp >100.5 11/01/20 21:30 12/01/20 21:29 Allopurinol (Zyloprim) 200 mg DAILY ORAL 11/01/20 16:00 12/01/20 15:59 11/15/20 08:51 Amiodarone HCl (Cordarone) 200 mg DAILY ORAL 11/10/20 09:00 02/08/21 08:59 11/15/20 08:51 Chlorhexidine Gluconate (María Elena-Hex 2%) 1 applic DAILY@1999 TOPIC 11/04/20 20:00 02/02/21 19:59 11/15/20 21:00 Clonidine HCl (Catapres Tab) 0.1 mg Q4H PRN ORAL bp over 160 syst 10/31/20 17:45 01/29/21 17:44 11/01/20 09:20 Dextrose (Dextrose 50%) 25 ml Q30M PRN IV Hypoglycemia 11/01/20 07:15 01/30/21 07:14 Dextrose (Dextrose 50%) 50 ml Q30M PRN IV Hypoglycemia 11/01/20 07:15 01/30/21 07:14 Diltiazem HCl (Cardizem Tab) 90 mg BID ORAL 11/07/20 10:15 12/02/20 17:59 11/15/20 17:22 Docusate Sodium (Colace) 100 mg TWICE A DAY ORAL 10/31/20 18:00 11/30/20 17:59 11/15/20 17:23 Enoxaparin Sodium (Lovenox) 30 mg DAILY SUBQ 11/16/20 09:00 02/14/21 08:59 Haloperidol Lactate (Haldol) 5 mg Q6H PRN IM Agitation 11/06/20 21:30 12/21/20 21:29 11/15/20 08:52 Insulin Aspart (NovoLOG) BEFORE MEALS AND HS SUBQ 11/01/20 11:30 01/30/21 11:29 11/15/20 21:03 Insulin Aspart (NovoLOG) 7 units NOVOTIAC SUBQ 11/14/20 11:50 01/30/21 11:49 11/15/20 16:55 Insulin Detemir (Levemir) 10 units QHS SUBQ 11/13/20 21:00 01/30/21 08:59 11/15/20 21:04 Methimazole (Tapazole) 10 mg DAILY ORAL 11/03/20 09:00 12/03/20 08:59 11/15/20 08:51 Metoprolol Tartrate (Lopressor) 50 mg Q12HR ORAL 11/01/20 21:00 01/30/21 20:59 11/15/20 21:01 Ondansetron HCl (Zofran) 4 mg Q6H PRN IVP Nausea & Vomiting 11/07/20 16:30 12/07/20 16:29 11/07/20 17:28 Pantoprazole (Protonix) 40 mg BID ORAL 10/31/20 18:00 11/30/20 17:44 1/19/21 17:23 Sitagliptin Phosphate (Januvia) 25 mg ACBREAKFAST ORAL 11/06/20 06:30 12/06/20 06:29 11/16/20 06:09 Tamsulosin HCl (Flomax) 0.4 mg BID ORAL 11/03/20 12:00 12/03/20 11:59 11/15/20 17:23 Vitamin D (Vitamin D) 5,000 unit DAILY ORAL 11/13/20 09:00 12/13/20 08:59 11/15/20 08:50 Assessment/Plan Problem List: (1) Abnormal thyroid blood test ICD Codes: R79.89 - Other specified abnormal findings of blood chemistry SNOMED: 743570632, 506118895496113 (2) Diabetes mellitus out of control ICD Codes: E11.65 - Type 2 diabetes mellitus with hyperglycemia SNOMED: 29965482, 112036783 (3) Renal failure (ARF), acute on chronic ICD Codes: N17.9 - Acute kidney failure, unspecified; N18.9 - Chronic kidney disease, unspecified SNOMED: 187348358 (4) COVID-19 virus infection ICD Codes: U07.1 - COVID-19 SNOMED: 215182023 (5) DKA (diabetic ketoacidoses) ICD Codes: E11.10 - Type 2 diabetes mellitus with ketoacidosis without coma SNOMED: 687331291, 69403017 (6) NSTEMI (non-ST elevated myocardial infarction) ICD Codes: I21.4 - Non-ST elevation (NSTEMI) myocardial infarction SNOMED: 21065663 Status: progressing, unchanged Assessment/Plan: reduce Levemir 10 to 8 units qhs increase Novolog 7 to 8 units ac tid continue Novolog sliding scale ac hs continue Januvia 25 mg daily continue Tapazole 10 mg daily TSI pending Markus Tamez MD Nov 16, 2020 06:27
--- NOTE | 2020-11-16 07:00 | NUR ---
NURSE HAND-OFF REPORT: Important Events on Shift: Remains on bilateral soft wrist restraints, intact skin and circulation, R IJ dialysis catheter triple lumen Patient Status: AOX2, stable Diet: Renal puree moist, thin liquids Pending Orders: N Pending Results/Labs: AM labs Pending MD notification: N Latest Vital Signs: Temperature 98.7 , Pulse 89 , B/P 137 /65 , Respiratory Rate 19 , O2 SAT 93 , Nasal Cannula, O2 Flow Rate 2.0 . Vital Sign Comment: within baseline EKG Rhythm: Sinus Rhythm Rhythm change?: N MD Notified?: N MD Response: n/a Latest Bhat Fall Score: 50 Fall Risk: High Risk Safety Measures: Call light Within Reach, Bed Alarm Zone 1, Side Rails Side Rails x3, Bed position Low and Locked. Fall Precautions: Yellow Socks Yellow Gown Report given to ARPITA Mendoza.
[2020-11-16 07:33] LABS: HEMATOCRIT 23.4 % (42.0-52.0); HEMOGLOBIN 7.7 G/DL (14.2-18.0); MEAN CORPUSCULAR VOLUME 91 FL (80-99); PLATELET COUNT 138 K/UL (150-450); RED BLOOD COUNT 2.57 M/UL (4.70-6.10); RED CELL DISTRIBUTION WIDTH 13.2 % (11.6-14.8); WHITE BLOOD COUNT 8.7 K/UL (4.8-10.8)
--- NOTE | 2020-11-16 07:36 | NUR ---
NURSE NOTES: Patient received from ARPITA Crabtree. Patient seen in bed in low fowlers asleep with no acute signs of distress. The patient is on room air with oxygen saturation within normal limits. Patient has a right IJ triple lumen that is clean patent and intact. The patients bed is in lowest position, locked, side rails x3, bed alarm in zone 1 and call light within reach.
[2020-11-16 07:52] LABS: ALBUMIN 1.6 G/DL (3.4-5.0); ALBUMIN/GLOBULIN RATIO 0.5 (1.0-2.7); BILIRUBIN,TOTAL 0.4 MG/DL (0.2-1.0); CALCIUM 7.6 MG/DL (8.5-10.1); CREATININE 2.9 MG/DL (0.55-1.30); PHOSPHORUS 3.1 MG/DL (2.5-4.9)
[2020-11-16 08:00] VITALS: BP 150/70
--- NOTE | 2020-11-16 08:50 | NUR ---
NURSE NOTES: Patient has lab value below normal limits of hemoglobin 7.7 which has been reported to primary MD. Left message for MD.
[2020-11-16] MEDS: Docusate 100mg cap ORAL SCH ×2 (08:59→18:21)
[2020-11-16] MEDS: methIMAzole 10mg tab ORAL SCH (08:59)
[2020-11-16] MEDS: Metoprolol Tartrate 50mg tab ORAL SCH ×2 (08:59→21:35)
[2020-11-16] MEDS: Amiodarone 200mg tab ORAL SCH (09:00)
[2020-11-16] MEDS: Tamsulosin 0.4mg cap ORAL SCH ×2 (09:00→18:21)
[2020-11-16] MEDS: Allopurinol 100mg Tab ORAL SCH (09:01)
[2020-11-16] MEDS: dilTIAZem HCl 90mg tab ORAL SCH ×2 (09:01→18:21)
[2020-11-16] MEDS: Vitamin D 1000 units Tab ORAL SCH (09:02)
[2020-11-16] MEDS: Enoxaparin 30mg Inj SUBQ SCH (09:04)
--- NOTE | 2020-11-16 10:20 | NUR ---
NURSE NOTES: Dr. Weaver ordered 1 unit PRBC for patients hgb of 7.7. received telephone consent from daughter and witnessed by two Rns
--- NOTE | 2020-11-16 11:03 | Consultation ---
History of Present Illness General Chief Complaint: Abnormal Labs Referring physician: Geovanny Reason for Consultation: pulled brenner hematuria Present Illness Allergies: Coded Allergies: No Known Allergies (Unverified , 10/31/20) Medication History Scheduled Amlodipine Besylate* (Amlodipine Besylate*), 5 MG ORAL DAILY, (Reported) Atorvastatin Calcium* (Atorvastatin Calcium*), 20 MG ORAL BEDTIME, (Reported) Carvedilol* (Carvedilol*), 6.25 MG ORAL BID, (Reported) Cholecalciferol (Vitamin D3) (Vitamin D3*), 25 MCG PO DAILY, (Reported) Donepezil Hcl* (Donepezil Hcl*), 5 MG ORAL DAILY, (Reported) Finasteride* (Proscar*), 5 MG ORAL DAILY, (Reported) Gabapentin (Neurontin), 300 MG ORAL BID, (Reported) Glipizide* (Glipizide*), 5 MG ORAL DAILY, (Reported) Icosapent Ethyl (Vascepa), 1 GM PO DAILY, (Reported) Insulin NPH Hum/Reg Insulin Hm (Novolin 70-30 Flexpen), UNIT SQ BID, (Reported) Linagliptin (Tradjenta), 5 MG PO DAILY, (Reported) Metoclopramide Hcl* (Metoclopramide Hcl*), 5 MG ORAL BID, (Reported) Mirabegron (Myrbetriq), 25 MG PO DAILY, (Reported) Pantoprazole* (Pantoprazole*), 40 MG ORAL DAILY, (Reported) Pioglitazone Hcl* (Actos*), 15 MG ORAL DAILY, (Reported) Tamsulosin HCl (Flomax), 0.4 MG ORAL DAILY, (Reported) Patient History Healthcare decision maker Resuscitation status Advanced Directive on File Physical Exam Last 24 Hour Vital Signs Date Time Temp Pulse Resp B/P (MAP) Pulse Ox O2 Delivery O2 Flow Rate FiO2 11/16/20 09:01 73 150/70 11/16/20 09:00 Room Air 11/16/20 08:59 73 150/70 11/16/20 08:00 72 11/16/20 08:00 98.8 73 20 150/70 (96) 94 11/16/20 04:00 89 11/16/20 04:00 98.7 89 19 137/65 (89) 93 11/16/20 00:00 75 11/16/20 00:00 97.2 75 18 154/72 (99) 93 11/15/20 21:01 99 152/68 11/15/20 21:00 Room Air 11/15/20 21:00 92 11/15/20 21:00 97.8 92 19 152/68 (96) 92 11/15/20 17:22 90 125/61 11/15/20 16:00 98.0 80 20 125/61 (82) 98 11/15/20 16:00 90 11/15/20 12:00 79 11/15/20 12:00 98.7 64 18 123/87 (99) 98 Intake and Output 11/15/20 11/16/20 19:00 07:00 Intake Total 240 ml 800 ml Output Total 300 ml Balance 240 ml 500 ml Intake Oral 240 ml 800 ml Output Urine Total 300 ml # Voids 3 Laboratory Tests Test 11/15/20 20:51 11/16/20 05:43 11/16/20 06:08 POC Whole Blood Glucose 257 MG/DL (74-106) H 85 MG/DL (74-106) White Blood Count 8.7 K/UL (4.8-10.8) Red Blood Count 2.57 M/UL (4.70-6.10) L Hemoglobin 7.7 G/DL (14.2-18.0) L Hematocrit 23.4 % (42.0-52.0) L Mean Corpuscular Volume 91 FL (80-99) Mean Corpuscular Hemoglobin 29.9 PG (27.0-31.0) Mean Corpuscular Hemoglobin Concent 32.8 G/DL (32.0-36.0) Red Cell Distribution Width 13.2 % (11.6-14.8) Platelet Count 138 K/UL (150-450) L Mean Platelet Volume 6.5 FL (6.5-10.1) Neutrophils (%) (Auto) % (45.0-75.0) Lymphocytes (%) (Auto) % (20.0-45.0) Monocytes (%) (Auto) % (1.0-10.0) Eosinophils (%) (Auto) % (0.0-3.0) Basophils (%) (Auto) % (0.0-2.0) Differential Total Cells Counted 100 Neutrophils % (Manual) 82 % (45-75) H Lymphocytes % (Manual) 11 % (20-45) L Monocytes % (Manual) 7 % (1-10) Eosinophils % (Manual) 0 % (0-3) Basophils % (Manual) 0 % (0-2) Band Neutrophils 0 % (0-8) Platelet Estimate Decreased L Platelet Morphology Normal Hypochromasia 1+ Sodium Level 137 MMOL/L (136-145) Potassium Level 4.0 MMOL/L (3.5-5.1) Chloride Level 104 MMOL/L (98-107) Carbon Dioxide Level 28 MMOL/L (21-32) Anion Gap 5 mmol/L (5-15) Blood Urea Nitrogen 42 mg/dL (7-18) H Creatinine 2.9 MG/DL (0.55-1.30) H Estimat Glomerular Filtration Rate 21.3 mL/min (>60) Glucose Level 76 MG/DL (74-106) # Uric Acid 4.4 MG/DL (2.6-7.2) Calcium Level 7.6 MG/DL (8.5-10.1) L Phosphorus Level 3.1 MG/DL (2.5-4.9) Magnesium Level 1.9 MG/DL (1.8-2.4) Total Bilirubin 0.4 MG/DL (0.2-1.0) Aspartate Amino Transf (AST/SGOT) 19 U/L (15-37) Alanine Aminotransferase (ALT/SGPT) 28 U/L (12-78) Alkaline Phosphatase 73 U/L (46-116) C-Reactive Protein, Quantitative 2.0 mg/dL (0.00-0.90) H Pro-B-Type Natriuretic Peptide 1255 pg/mL (0-125) H Total Protein 4.8 G/DL (6.4-8.2) L Albumin 1.6 G/DL (3.4-5.0) L Globulin 3.2 g/dL Albumin/Globulin Ratio 0.5 (1.0-2.7) L Height (Feet): 5 Height (Inches): 5.00 Weight (Pounds): 150 Medications Current Medications Medications (Trade) Dose Ordered Sig/Manasa Route PRN Reason Start Time Stop Time Status Last Admin Dose Admin Acetaminophen (Tylenol) 500 mg Q4H PRN ORAL For Pain 11/01/20 01:00 2/4/21 00:59 11/01/20 18:50 Acetaminophen (Tylenol) 650 mg Q4H PRN RECTAL Temp >100.5 11/01/20 21:30 12/01/20 21:29 Allopurinol (Zyloprim) 200 mg DAILY ORAL 11/01/20 16:00 12/01/20 15:59 11/16/20 09:01 Amiodarone HCl (Cordarone) 200 mg DAILY ORAL 11/10/20 09:00 02/08/21 08:59 11/16/20 09:00 Chlorhexidine Gluconate (María Elena-Hex 2%) 1 applic DAILY@2000 TOPIC 11/04/20 20:00 02/02/21 19:59 11/15/20 21:00 Clonidine HCl (Catapres Tab) 0.1 mg Q4H PRN ORAL bp over 160 syst 10/31/20 17:45 01/29/21 17:44 11/01/20 09:20 Dextrose (Dextrose 50%) 25 ml Q30M PRN IV Hypoglycemia 11/01/20 07:15 01/30/21 07:14 Dextrose (Dextrose 50%) 50 ml Q30M PRN IV Hypoglycemia 11/01/20 07:15 01/30/21 07:14 Diltiazem HCl (Cardizem Tab) 90 mg BID ORAL 11/07/20 10:15 12/02/20 17:59 11/16/20 09:01 Docusate Sodium (Colace) 100 mg TWICE A DAY ORAL 10/31/20 18:00 11/30/20 17:59 11/16/20 08:59 Enoxaparin Sodium (Lovenox) 30 mg DAILY SUBQ 11/16/20 09:00 02/14/21 08:59 11/16/20 09:04 Haloperidol Lactate (Haldol) 5 mg Q6H PRN IM Agitation 11/06/20 21:30 12/21/20 21:29 11/15/20 08:52 Insulin Aspart (NovoLOG) BEFORE MEALS AND HS SUBQ 11/01/20 11:30 01/30/21 11:29 11/15/20 21:03 Insulin Aspart (NovoLOG) 8 units NOVOTIAC SUBQ 11/16/20 06:30 01/30/21 11:49 Insulin Detemir (Levemir) 8 units QHS SUBQ 11/16/20 21:00 01/30/21 08:59 Methimazole (Tapazole) 10 mg DAILY ORAL 11/03/20 09:00 12/03/20 08:59 11/16/20 08:59 Metoprolol Tartrate (Lopressor) 50 mg Q12HR ORAL 11/01/20 21:00 01/30/21 20:59 11/16/20 08:59 Ondansetron HCl (Zofran) 4 mg Q6H PRN IVP Nausea & Vomiting 11/07/20 16:30 12/07/20 16:29 11/07/20 17:28 Pantoprazole (Protonix) 40 mg BID ORAL 10/31/20 18:00 11/30/20 17:44 11/16/20 08:59 Sitagliptin Phosphate (Januvia) 25 mg ACBREAKFAST ORAL 11/06/20 06:30 12/06/20 06:29 11/16/20 06:09 Tamsulosin HCl (Flomax) 0.4 mg BID ORAL 11/03/20 12:00 12/03/20 11:59 11/16/20 09:00 Vitamin D (Vitamin D) 5,000 unit DAILY ORAL 11/13/20 09:00 12/13/20 08:59 11/16/20 09:02 Assessment/Plan Assessment/Plan: Hematology Consultation REQ MD: Corey Hwang Chief Complaint: Abnormal Labs Source: Patient, EMS DOS: 11/16/2020 HPI 75-year-old male with history of diabetes brought in by paramedics from home due to generalized weakness, nausea vomiting, and elevated blood sugar for 2 days. Patient also hypertensive upon arrival otherwise vitals are within normal limits. Appears to be afebrile. Reports that he tested negative for Covid 9 days ago however lives with who is positive for Covid. Denies any cough or congestion, shortness of breath, headache and dizziness. Patient mainly complains of generalized weakness. No unilateral weakness noted. Labs have bene reviewed, hgb 7.7 Allergies: No Known Allergies (Unverified , 10/31/20) COVID-19 Screening Contact w/high risk pt: No Experienced COVID-19 symptoms?: No COVID-19 Testing performed CANDY DIPPER HAND: No Patient History Past Medical History: see triage record Past Surgical History: none Pertinent Family History: none Immunizations: UTD Reviewed Nursing Documentation: PMH: Agreed; PSxH: Agree Nursing Documentation-PMH Hx Hypertension: Yes Hx Diabetes: Yes Review of Systems All Other Systems: negative except mentioned in HPI Physical Exam: Vitals: reviewed General: NAD HEENT: nc, at Neck: supple Chest: clear breath sounds bilaterally Cardiovascular: RRR, no s3, s4 Abdomen: soft, nontender, nd Extremities: no cce, normal range of motion Neuro: alert and oriented Labs: noted Imaging; reviewed Assessment and Recs Diagnostic Impression: Primary Impression: DKA (diabetic ketoacidoses) Additional Impression: COVID-19 virus infection ER Course 75-year-old male with history of diabetes brought in by paramedics from home due to generaliz Assessment/Plan # Anemia of chronic disease due to underlying chronic medical issues, Multifactorial --> Anemia w/u has been ordered --> No evidence of hemolysis is noted, peripheral smear has been reviewed. --> Hgb goal >7. Transfuse prn. --> Epogen or iron at this time is not particularly indicated --> If unable to determine source, will need bone marrow biopsy # Thrombocytopenia - potential causes multifactorial, evaluate liver and viral etiologies, in this case due to covid19+++++ --> Hep panel and HIV ordered --> US abd to evaluate for cirrhosis and hsm ordered-->neg --> Peripheral smear ordered to evaluate for blasts /schistocytes --> abx and other meds have been reviewed --> ok for ppx if plt >50k w/ wither heparin or lovenox # Elevated ddimer due to covid19+++ --> venous duplex neg --> ok for lovenox sq # NSTEMI with troponin of 0.25 and 0.35 in this patient with DKA as well as a trial flutter with rapid ventricular response. --> per cards, metoprolol 50 mg b.i.d. EF 65% # Atrial flutter with RVR On metoprolol 50 mg bid, Cardizem 90 bid and Amiodarone 200 po daily --> Eliquis held for hematuria # Diabetic ketoacidosis with glucose of more than 1000. # Accelerated hypertension. On Lopressor 50 bid and Cardizem 90 bid # COVID positive pneumonia. # Acute Renal failure in the setting of total CK of 1900, maybe rhabdomyolysis- induced renal failure. --> hd per renal --> S/P Bakari Hand on 11/11/20 # Dvt ppx lovenox sq Time of note does not necessarily correspond to the time the patient was seen. Appreciate consultation greatly. Montrell Weaver MD Nov 16, 2020 11:03
--- NOTE | 2020-11-16 11:36 | NUR ---
CASE MANAGEMENT:REVIEW 11/16/20 SI: KELLEY PNA. NSTEMI. AFLUTTER ACUTE RENAL FAILURE 98.8 72 20 150/70 94% ON RA H/H-7.7/23.4 PLT-138 BUN+42 CR+2.9 IS: CARDIZEM PO BID AMIODARONE PO QD LOVENOX SQ QD NOVOLOG SQ TID AC JANUVIA PO QAM SS INSULIN AC+HS LEVEMIR SQ QD FLOMAX PO BID TAPAZOLE PO QD LOPRESSOR PO Q12 PROTONIX PO BID : TELEMETRY STATUS DCP: FROM HOME PLAN: PULLED OUT RT FEMORAL CATH ON 11/09/20 RT INTERNAL JUGULAR CATH PLACED ON 11/11/20 LAST DIALYZED ON 11/08/20
--- NOTE | 2020-11-16 11:54 | NUR ---
NURSE NOTES: Dr. Buckley gave in person order to D/C Patients IJ line that was used for dialysis. patients renal Labs improving.
[2020-11-16 12:00] VITALS: BP 138/68
--- NOTE | 2020-11-16 12:04 | Surgery Progress Note ---
Surgery Progress Note Subjective Procedure Performed Right femoral temporary hemodialysis catheter insertion Additional Comments no acute events plt trending down heme note noted no n/v/f/c cr improving plan removal of hd line if stable soon Objective Last 24 Hour Vital Signs Date Time Temp Pulse Resp B/P (MAP) Pulse Ox O2 Delivery O2 Flow Rate FiO2 11/16/20 09:01 73 150/70 11/16/20 09:00 Room Air 11/16/20 08:59 73 150/70 11/16/20 08:00 72 11/16/20 08:00 98.8 73 20 150/70 (96) 94 11/16/20 04:00 89 11/16/20 04:00 98.7 89 19 137/65 (89) 93 11/16/20 00:00 75 11/16/20 00:00 97.2 75 18 154/72 (99) 93 11/15/20 21:01 99 152/68 11/15/20 21:00 Room Air 11/15/20 21:00 92 11/15/20 21:00 97.8 92 19 152/68 (96) 92 11/15/20 17:22 90 125/61 11/15/20 16:00 98.0 80 20 125/61 (82) 98 11/15/20 16:00 90 I&O Intake and Output 11/15/20 11/16/20 19:00 07:00 Intake Total 240 ml 800 ml Output Total 300 ml Balance 240 ml 500 ml Intake Oral 240 ml 800 ml Output Urine Total 300 ml # Voids 3 Dressing: dry Cardiovascular: RSR Respiratory: decreased breath sounds Abdomen: soft, flat, non-tender, present bowel sounds, non-distended Extremities: no edema, no tenderness, no cyanosis Laboratory Tests Test 11/15/20 20:51 11/16/20 05:43 11/16/20 06:08 11/16/20 11:43 POC Whole Blood Glucose 257 MG/DL (74-106) H 85 MG/DL (74-106) 223 MG/DL (74-106) H White Blood Count 8.7 K/UL (4.8-10.8) Red Blood Count 2.57 M/UL (4.70-6.10) L Hemoglobin 7.7 G/DL (14.2-18.0) L Hematocrit 23.4 % (42.0-52.0) L Mean Corpuscular Volume 91 FL (80-99) Mean Corpuscular Hemoglobin 29.9 PG (27.0-31.0) Mean Corpuscular Hemoglobin Concent 32.8 G/DL (32.0-36.0) Red Cell Distribution Width 13.2 % (11.6-14.8) Platelet Count 138 K/UL (150-450) L Mean Platelet Volume 6.5 FL (6.5-10.1) Neutrophils (%) (Auto) % (45.0-75.0) Lymphocytes (%) (Auto) % (20.0-45.0) Monocytes (%) (Auto) % (1.0-10.0) Eosinophils (%) (Auto) % (0.0-3.0) Basophils (%) (Auto) % (0.0-2.0) Differential Total Cells Counted 100 Neutrophils % (Manual) 82 % (45-75) H Lymphocytes % (Manual) 11 % (20-45) L Monocytes % (Manual) 7 % (1-10) Eosinophils % (Manual) 0 % (0-3) Basophils % (Manual) 0 % (0-2) Band Neutrophils 0 % (0-8) Platelet Estimate Decreased L Platelet Morphology Normal Hypochromasia 1+ Sodium Level 137 MMOL/L (136-145) Potassium Level 4.0 MMOL/L (3.5-5.1) Chloride Level 104 MMOL/L (98-107) Carbon Dioxide Level 28 MMOL/L (21-32) Anion Gap 5 mmol/L (5-15) Blood Urea Nitrogen 42 mg/dL (7-18) H Creatinine 2.9 MG/DL (0.55-1.30) H Estimat Glomerular Filtration Rate 21.3 mL/min (>60) Glucose Level 76 MG/DL (74-106) # Uric Acid 4.4 MG/DL (2.6-7.2) Calcium Level 7.6 MG/DL (8.5-10.1) L Phosphorus Level 3.1 MG/DL (2.5-4.9) Magnesium Level 1.9 MG/DL (1.8-2.4) Total Bilirubin 0.4 MG/DL (0.2-1.0) Aspartate Amino Transf (AST/SGOT) 19 U/L (15-37) Alanine Aminotransferase (ALT/SGPT) 28 U/L (12-78) Alkaline Phosphatase 73 U/L (46-116) C-Reactive Protein, Quantitative 2.0 mg/dL (0.00-0.90) H Pro-B-Type Natriuretic Peptide 1255 pg/mL (0-125) H Total Protein 4.8 G/DL (6.4-8.2) L Albumin 1.6 G/DL (3.4-5.0) L Globulin 3.2 g/dL Albumin/Globulin Ratio 0.5 (1.0-2.7) L Plan Problems: (1) DKA (diabetic ketoacidoses) (2) Renal failure (ARF), acute on chronic Assessment & Plan: s/p temp HD line recovering plan remove line soon (3) COVID-19 virus infection Assessment & Plan: 75-year-old male Covid positive renal insufficiency recently had temporary dialysis catheter placement develop leukocytosis soon after. Vitals noted. Exam stable. Catheter was evaluated no acute active inflammatory or infectious process identified. Catheter is clean dry intact. The dressings are not saturated. There is no active bleeding identified. There is no signs of active infection. Leukocytosis anterior collated to medications currently given for COVID-19 infection. Will monitor closely to ensure no active development of infection or related to catheter placement. Thank you for let me participate patient's care will follow with recommendations trend leukocytosis cont dressings cont care plan as noted cont HD trend renal function (4) Rhabdomyolysis Assessment & Plan: improved resuscitated no n/v tolerating diet labs improved likely secondary to down DAILY ESTIMATED NEEDS: Needs based on DM, pulmonary 68.4kg 25-30 kcals/kg 1242-7415 total kcals 1-1.5 g protein/kg 68-102 g total protein 25-30 mL/kg 5060-3539 total fluid mLs NUTRITION DIAGNOSIS: Altered nutrition related lab values r/t DKA as evidenced by Uglu 4+ on adm, small acetone detected, BG 1087 upon adm-> now improved, A1C 8.1. CURRENT DIET: Renal/ pureed moist+ Ensure TID PO DIET RECOMMENDATIONS: RENAL/ CCHO MED diet (texture as tolerated) ADDITIONAL RECOMMENDATIONS: 1) Monitor renal fxn and lytes, continuity of HD last HD 11/08, K, phos, mag wnl 2) Monitor BGs closely for hypoglycemia w/ insulin regimen 3) Maintain calibrated bed scale wts 4) Nephrovite x 1 5) Monitor for continued improved intake - rec to decrease HPN to QD at this time. Rec Nepro (5) Diabetes mellitus out of control (6) Abnormal thyroid blood test (7) NSTEMI (non-ST elevated myocardial infarction) Norberto Steele Nov 16, 2020 12:04
--- NOTE | 2020-11-16 12:20 | Pulmonology Progress Note ---
Subjective ROS Limited/Unobtainable: Yes Interval Events: none major reported per nursing Constitutional: Denies: fever Gastrointestinal/Abdominal: Reports: diarrhea - C. diff negative Psychiatric: Reports: other - on restraint Allergies: Coded Allergies: No Known Allergies (Unverified , 10/31/20) Objective Last 24 Hour Vital Signs Date Time Temp Pulse Resp B/P (MAP) Pulse Ox O2 Delivery O2 Flow Rate FiO2 11/16/20 09:01 73 150/70 11/16/20 09:00 Room Air 11/16/20 08:59 73 150/70 11/16/20 08:00 72 11/16/20 08:00 98.8 73 20 150/70 (96) 94 11/16/20 04:00 89 11/16/20 04:00 98.7 89 19 137/65 (89) 93 11/16/20 00:00 75 11/16/20 00:00 97.2 75 18 154/72 (99) 93 11/15/20 21:01 99 152/68 11/15/20 21:00 Room Air 11/15/20 21:00 92 11/15/20 21:00 97.8 92 19 152/68 (96) 92 11/15/20 17:22 90 125/61 11/15/20 16:00 98.0 80 20 125/61 (82) 98 11/15/20 16:00 90 Intake and Output 11/15/20 11/16/20 19:00 07:00 Intake Total 240 ml 800 ml Output Total 300 ml Balance 240 ml 500 ml Intake Oral 240 ml 800 ml Output Urine Total 300 ml # Voids 3 Objective now on room air General Appearance: WD/WN, no acute distress HEENT: atraumatic Respiratory: chest wall non-tender Cardiovascular: normal rate, regular rhythm Abdomen: soft, non tender Laboratory Tests 11/15/20 20:51: POC Whole Blood Glucose 257H 11/16/20 05:43: White Blood Count 8.7, Red Blood Count 2.57L, Hemoglobin 7.7L, Hematocrit 23.4L, Mean Corpuscular Volume 91, Mean Corpuscular Hemoglobin 29.9, Mean Corpuscular Hemoglobin Concent 32.8, Red Cell Distribution Width 13.2, Platelet Count 138L, Mean Platelet Volume 6.5, Neutrophils (%) (Auto) , Lymphocytes (%) (Auto) , Monocytes (%) (Auto) , Eosinophils (%) (Auto) , Basophils (%) (Auto) , Differential Total Cells Counted 100, Neutrophils % (Manual) 82H, Lymphocytes % (Manual) 11L, Monocytes % (Manual) 7, Eosinophils % (Manual) 0, Basophils % (Manual) 0, Band Neutrophils 0, Platelet Estimate DecreasedL, Platelet Morphology Normal, Hypochromasia 1+, Sodium Level 137, Potassium Level 4.0, Chloride Level 104, Carbon Dioxide Level 28, Anion Gap 5, Blood Urea Nitrogen 42H, Creatinine 2.9H, Estimat Glomerular Filtration Rate 21.3, Glucose Level 76#, Uric Acid 4.4, Calcium Level 7.6L, Phosphorus Level 3.1, Magnesium Level 1.9, Total Bilirubin 0.4, Aspartate Amino Transf (AST/SGOT) 19, Alanine Aminot ransferase (ALT/SGPT) 28, Alkaline Phosphatase 73, C-Reactive Protein, Quantitative 2.0H, Pro-B-Type Natriuretic Peptide 1255H, Total Protein 4.8L, Albumin 1.6L, Globulin 3.2, Albumin/Globulin Ratio 0.5L 11/16/20 06:08: POC Whole Blood Glucose 85 11/16/20 11:43: POC Whole Blood Glucose 223H Current Medications Medications (Trade) Dose Ordered Sig/Manasa Route PRN Reason Start Time Stop Time Status Last Admin Dose Admin Acetaminophen (Tylenol) 500 mg Q4H PRN ORAL For Pain 11/01/20 01:00 12/01/20 00:59 11/01/20 18:50 Acetaminophen (Tylenol) 650 mg ONCE ORAL 11/16/20 11:30 11/16/20 13:30 Acetaminophen (Tylenol) 650 mg Q4H PRN RECTAL Temp >100.5 11/01/20 21:30 12/01/20 21:29 Allopurinol (Zyloprim) 200 mg DAILY ORAL 11/01/20 16:00 12/01/20 15:59 11/16/20 09:01 Amiodarone HCl (Cordarone) 200 mg DAILY ORAL 11/10/20 09:00 02/08/21 08:59 11/16/20 09:00 Chlorhexidine Gluconate (María Elena-Hex 2%) 1 applic DAILY@1999 TOPIC 11/04/20 20:00 02/02/21 19:59 11/15/20 21:00 Clonidine HCl (Catapres Tab) 0.1 mg Q4H PRN ORAL bp over 160 syst 10/31/20 17:45 01/29/21 17:44 11/01/20 09:20 Dextrose (Dextrose 50%) 25 ml Q30M PRN IV Hypoglycemia 11/01/20 07:15 01/30/21 07:14 Dextrose (Dextrose 50%) 50 ml Q30M PRN IV Hypoglycemia 11/01/20 07:15 01/30/21 07:14 Diltiazem HCl (Cardizem Tab) 90 mg BID ORAL 11/07/20 10:15 12/02/20 17:59 11/16/20 09:01 Diphenhydramine HCl (Benadryl) 25 mg ONCE ORAL 11/16/20 11:30 11/16/20 13:30 Docusate Sodium (Colace) 100 mg TWICE A DAY ORAL 10/31/20 18:00 11/30/20 17:59 11/16/20 08:59 Enoxaparin Sodium (Lovenox) 30 mg DAILY SUBQ 11/16/20 09:00 02/14/21 08:59 11/16/20 09:04 Haloperidol Lactate (Haldol) 5 mg Q6H PRN IM Agitation 11/06/20 21:30 12/21/20 21:29 11/15/20 08:52 Insulin Aspart (NovoLOG) BEFORE MEALS AND HS SUBQ 11/01/20 11:30 01/30/21 11:29 11/16/20 11:50 Insulin Aspart (NovoLOG) 8 units NOVOTIAC SUBQ 11/16/20 06:30 01/30/21 11:49 11/16/20 11:51 Insulin Detemir (Levemir) 8 units QHS SUBQ 11/16/20 21:00 01/30/21 08:59 Methimazole (Tapazole) 10 mg DAILY ORAL 11/03/20 09:00 12/03/20 08:59 11/16/20 08:59 Metoprolol Tartrate (Lopressor) 50 mg Q12HR ORAL 11/01/20 21:00 01/30/21 20:59 11/16/20 08:59 Ondansetron HCl (Zofran) 4 mg Q6H PRN IVP Nausea & Vomiting 11/07/20 16:30 12/07/20 16:29 11/07/20 17:28 Pantoprazole (Protonix) 40 mg BID ORAL 10/31/20 18:00 11/30/20 17:44 11/16/20 08:59 Sitagliptin Phosphate (Januvia) 25 mg ACBREAKFAST ORAL 11/06/20 06:30 12/06/20 06:29 11/16/20 06:09 Tamsulosin HCl (Flomax) 0.4 mg BID ORAL 11/03/20 12:00 12/03/20 11:59 11/16/20 09:00 Vitamin D (Vitamin D) 5,000 unit DAILY ORAL 11/13/20 09:00 12/13/20 08:59 11/16/20 09:02 Assessment/Plan Assessment/Plan 1. Non-ST elevation myocardial infarction. - cardiology following 2. Diabetic ketoacidosis - seen by endocrinology - continue fluids - on insulin 3. Atrial flutter with rapid ventricular response. - Continue metoprolol 50 mg b.i.d. 4. COVID positive pneumonia. - s/p Decadron (11/03-11/12) - Supplemental O2 - saturating at 94% on RA; weaned off oxygen - CXR 11/04 developing b/l infilitrates 5. Renal failure - nephrology following - pt pulled out femoral HD cath, s/p new IJ - removal of HD line once stable 6. Accelerated hypertension. 7. Hyperthyroidism - Dr. Tamez following 8. Diarrhea - C. diff negative 9. DVT ppx - s/p Eliquis - We will restart low dose Lovenox given eGFR <30 - ok to continue if plt >50K per heme onc 10. Anemia - awaiting transfusion today The care for this patient was discussed with my supervising physician Time spent for this case was approximately 31 minutes Singh Buchanan Nov 16, 2020 12:19
--- NOTE | 2020-11-16 14:22 | Nephrology Progress Note ---
Assessment/Plan Problem List: (1) Renal failure (ARF), acute on chronic (2) DKA (diabetic ketoacidoses) (3) COVID-19 virus infection (4) Rhabdomyolysis (5) Abnormal thyroid blood test (6) NSTEMI (non-ST elevated myocardial infarction) Assessment 75-year-old [place] male Covid positive Acute renal failure, most likely superimposed on chronic kidney disease Diabetes mellitus, presents with severe hyperglycemia and DKA History of hypertension Plan November 16: Labs reviewed. Serum creatinine lower 2.9. No need for dialysis catheter anymore. Continue as is. November 15: Labs reviewed. Serum creatinine unchanged. Calculated creatinine clearance 19 mL/h. No dialysis needed at this time. November 14: Lab reviewed. Serum creatinine 3.2 unchanged. No need for dialysis. Continue per consultants. November 13: Lab reviewed. Serum creatinine 3.2. No need for dialysis today. Continue to monitor renal parameters. Continue per consultants. November 12: Labs reviewed. Serum creatinine 3. No dialysis needed today. Continue to monitor renal parameters. November 11: Labs reviewed. Serum creatinine higher. Due for placement of a Nontunneled catheter today. We will schedule dialysis as needed. Patient's leukocytosis gradually improving. November 10: Lab reviewed. Serum creatinine rising. We will proceed with placement of a nontunneled catheter tomorrow and dialysis. Patient has leukocytosis at this time. Continue per consultants. November 09: Labs reviewed. Patient was dialyzed yesterday. Patient pulled out the dialysis catheter last night. Renal parameters stable. Continue to monitor and if dialysis needed to place a new temporary catheter. Per orders. November 08: Labs reviewed. Serum creatinine is plateauing. Due for dialysis today. We will continue to monitor renal parameters and dialysis as needed. November 07: Labs reviewed. Serum creatinine rising. IV fluid discontinued. Dialysis for tomorrow. Continue per consultants. November 06: Labs reviewed. Blood pressure stable. Medication list reviewed. Dialysis as needed. November 05: Due for dialysis today. Labs are reviewed. Blood pressure is stable. Continue to monitor renal parameters. November 04: Patient was dialyzed yesterday. 1 L ultrafiltrated. Labs reviewed. Renal parameters stable. Will attempt dialysis again tomorrow. Medication list reviewed. November 03: Labs reviewed. Serum creatinine rising. Patient has hematuria. Patient on Eliquis. Will arrange for placement of dialysis catheter and attempt to dialyze. Will start Flomax since the patient could not have a Anand catheter. Continue to monitor renal parameters. Continue per consultants. Discussed with RN. Consent for placement of nontunneled catheter ordered. Patient is also on Tapazole for high thyroid hormone. CPK is lowering. November 02: Labs reviewed. Serum creatinine up to 4. In S DU now. On Cardizem drip. Measured creatinine clearance . Patient may lead towards dialysis. Continue to monitor renal parameters. November 01: Renal parameters improving. Blood sugar is improving. Continue to monitor electrolytes renal parameters and urine output. Aim to control blood sugar and blood pressure. Avoid nephrotoxic's. Monitor CPK as it is elevated. Previously: Anand catheter Blood sugar control Slow hydration Monitor renal parameters Kidney ultrasound no hydronephrosis 2D echocardiogram ejection fraction 60 to 65%. Per orders Subjective ROS Limited/Unobtainable: No Constitutional: Reports: malaise, weakness Objective Objective Last 24 Hour Vital Signs Date Time Temp Pulse Resp B/P (MAP) Pulse Ox O2 Delivery O2 Flow Rate FiO2 11/16/20 12:00 97.9 71 18 138/68 (91) 97 11/16/20 12:00 61 11/16/20 09:01 73 150/70 11/16/20 09:00 Room Air 11/16/20 08:59 73 150/70 11/16/20 08:00 72 11/16/20 08:00 98.8 73 20 150/70 (96) 94 11/16/20 04:00 89 11/16/20 04:00 98.7 89 19 137/65 (89) 93 11/16/20 00:00 75 11/16/20 00:00 97.2 75 18 154/72 (99) 93 11/15/20 21:01 99 152/68 11/15/20 21:00 Room Air 11/15/20 21:00 92 11/15/20 21:00 97.8 92 19 152/68 (96) 92 11/15/20 17:22 90 125/61 11/15/20 16:00 98.0 80 20 125/61 (82) 98 11/15/20 16:00 90 Intake and Output 11/15/20 11/16/20 19:00 07:00 Intake Total 240 ml 800 ml Output Total 300 ml Balance 240 ml 500 ml Intake Oral 240 ml 800 ml Output Urine Total 300 ml # Voids 3 Current Medications Medications (Trade) Dose Ordered Sig/Manasa Route PRN Reason Start Time Stop Time Status Last Admin Dose Admin Acetaminophen (Tylenol) 500 mg Q4H PRN ORAL For Pain 11/01/20 01:00 12/01/20 00:59 11/01/20 18:50 Acetaminophen (Tylenol) 650 mg Q4H PRN RECTAL Temp >100.5 11/01/20 21:30 12/01/20 21:29 Allopurinol (Zyloprim) 200 mg DAILY ORAL 11/01/20 16:00 12/01/20 15:59 11/16/20 09:01 Amiodarone HCl (Cordarone) 200 mg DAILY ORAL 11/10/20 09:00 02/08/21 08:59 11/16/20 09:00 Chlorhexidine Gluconate (María Elena-Hex 2%) 1 applic DAILY@2000 TOPIC 11/04/20 20:00 02/02/21 19:59 11/15/20 21:00 Clonidine HCl (Catapres Tab) 0.1 mg Q4H PRN ORAL bp over 160 syst 10/31/20 17:45 01/29/21 17:44 11/01/20 09:20 Dextrose (Dextrose 50%) 25 ml Q30M PRN IV Hypoglycemia 11/01/20 07:15 01/30/21 07:14 Dextrose (Dextrose 50%) 50 ml Q30M PRN IV Hypoglycemia 11/01/20 07:15 01/30/21 07:14 Diltiazem HCl (Cardizem Tab) 90 mg BID ORAL 11/07/20 10:15 12/02/20 17:59 11/16/20 09:01 Docusate Sodium (Colace) 100 mg TWICE A DAY ORAL 10/31/20 18:00 11/30/20 17:59 11/16/20 08:59 Enoxaparin Sodium (Lovenox) 30 mg DAILY SUBQ 11/16/20 09:00 02/14/21 08:59 11/16/20 09:04 Haloperidol Lactate (Haldol) 5 mg Q6H PRN IM Agitation 11/06/20 21:30 12/21/20 21:29 11/15/20 08:52 Insulin Aspart (NovoLOG) BEFORE MEALS AND HS SUBQ 11/01/20 11:30 01/30/21 11:29 11/16/20 11:50 Insulin Aspart (NovoLOG) 8 units NOVOTIAC SUBQ 11/16/20 06:30 01/30/21 11:49 11/16/20 11:51 Insulin Detemir (Levemir) 8 units QHS SUBQ 11/16/20 21:00 01/30/21 08:59 Methimazole (Tapazole) 10 mg DAILY ORAL 11/03/20 09:00 12/03/20 08:59 11/16/20 08:59 Metoprolol Tartrate (Lopressor) 50 mg Q12HR ORAL 11/01/20 21:00 01/30/21 20:59 11/16/20 08:59 Ondansetron HCl (Zofran) 4 mg Q6H PRN IVP Nausea & Vomiting 11/07/20 16:30 12/07/20 16:29 11/07/20 17:28 Pantoprazole (Protonix) 40 mg BID ORAL 10/31/20 18:00 11/30/20 17:44 11/16/20 08:59 Sitagliptin Phosphate (Januvia) 25 mg ACBREAKFAST ORAL 11/06/20 06:30 12/06/20 06:29 11/16/20 06:09 Tamsulosin HCl (Flomax) 0.4 mg BID ORAL 11/03/20 12:00 12/03/20 11:59 11/16/20 09:00 Vitamin D (Vitamin D) 5,000 unit DAILY ORAL 11/13/20 09:00 12/13/20 08:59 11/16/20 09:02 Laboratory Tests 11/15/20 20:51: POC Whole Blood Glucose 257H 11/16/20 05:43: White Blood Count 8.7, Red Blood Count 2.57L, Hemoglobin 7.7L, Hematocrit 23.4L, Mean Corpuscular Volume 91, Mean Corpuscular Hemoglobin 29.9, Mean Corpuscular Hemoglobin Concent 32.8, Red Cell Distribution Width 13.2, Platelet Count 138L, Mean Platelet Volume 6.5, Neutrophils (%) (Auto) , Lymphocytes (%) (Auto) , Monocytes (%) (Auto) , Eosinophils (%) (Auto) , Basophils (%) (Auto) , Differential Total Cells Counted 100, Neutrophils % (Manual) 82H, Lymphocytes % (Manual) 11L, Monocytes % (Manual) 7, Eosinophils % (Manual) 0, Basophils % (Manual) 0, Band Neutrophils 0, Platelet Estimate DecreasedL, Platelet Morphology Normal, Hypochromasia 1+, Sodium Level 137, Potassium Level 4.0, Chloride Level 104, Carbon Dioxide Level 28, Anion Gap 5, Blood Urea Nitrogen 42H, Creatinine 2.9H, Estimat Glomerular Filtration Rate 21.3, Glucose Level 76#, Uric Acid 4.4, Calcium Level 7.6L, Phosphorus Level 3.1, Magnesium Level 1.9, Total Bilirubin 0.4, Aspartate Amino Transf (AST/SGOT) 19, Alanine Aminotra nsferase (ALT/SGPT) 28, Alkaline Phosphatase 73, C-Reactive Protein, Quantitative 2.0H, Pro-B-Type Natriuretic Peptide 1255H, Total Protein 4.8L, Albumin 1.6L, Globulin 3.2, Albumin/Globulin Ratio 0.5L 11/16/20 06:08: POC Whole Blood Glucose 85 11/16/20 11:43: POC Whole Blood Glucose 223H Height (Feet): 5 Height (Inches): 5.00 Weight (Pounds): 150 General Appearance: no apparent distress Cardiovascular: normal rate Respiratory/Chest: decreased breath sounds Abdomen: distended Garth Buckley MD Nov 16, 2020 14:22
--- NOTE | 2020-11-16 14:28 | Cardiac Electrophysiology PN ---
Assessment/Plan Assessment/Plan 1. NSTEMI with troponin of 0.25 and 0.35 in this patient with DKA as well as atrial flutter with rapid ventricular response. On metoprolol 50 mg b.i.d. EF 65% 2. Atrial flutter with RVR On metoprolol 50 mg bid, Cardizem 90 bid and Amiodarone 200 po daily Eliquis held for hematuria 3. Diabetic ketoacidosis with glucose of more than 1000. 4. Accelerated hypertension. On Lopressor 50 bid and Cardizem 90 bid 5. COVID positive pneumonia. 6. Acute Renal failure in the setting of total CK of 1900, maybe rhabdomyolysis- induced renal failure. On HD via RFV Yazan by Dr. Buckley. RFV Yazan pulled out by patient. S/P New Yazan on 11/11/20 Yazan to be removed today as no more need for HD DW RN Subjective Subjective Pulled out his RFV Yazan catheter after HD 11/08/20. S/P new Yazan catheter placement 11/11/20. In restraints in covid isolation. On RA In SR on Amio, Cardizem and metoprolol. Off Eliquis due to hematuria R IJ HD catheter to be removed today. Getting PRBC for Hb 7.7 Objective Last 24 Hour Vital Signs Date Time Temp Pulse Resp B/P (MAP) Pulse Ox O2 Delivery O2 Flow Rate FiO2 11/16/20 12:00 97.9 71 18 138/68 (91) 97 11/16/20 12:00 61 11/16/20 09:01 73 150/70 11/16/20 09:00 Room Air 11/16/20 08:59 73 150/70 11/16/20 08:00 72 11/16/20 08:00 98.8 73 20 150/70 (96) 94 11/16/20 04:00 89 11/16/20 04:00 98.7 89 19 137/65 (89) 93 11/16/20 00:00 75 11/16/20 00:00 97.2 75 18 154/72 (99) 93 11/15/20 21:01 99 152/68 11/15/20 21:00 Room Air 11/15/20 21:00 92 11/15/20 21:00 97.8 92 19 152/68 (96) 92 11/15/20 17:22 90 125/61 11/15/20 16:00 98.0 80 20 125/61 (82) 98 11/15/20 16:00 90 Intake and Output 11/15/20 11/16/20 19:00 07:00 Intake Total 240 ml 800 ml Output Total 300 ml Balance 240 ml 500 ml Intake Oral 240 ml 800 ml Output Urine Total 300 ml # Voids 3 Laboratory Tests Test 11/15/20 20:51 11/16/20 05:43 11/16/20 06:08 11/16/20 11:43 POC Whole Blood Glucose 257 MG/DL (74-106) H 85 MG/DL (74-106) 223 MG/DL (74-106) H White Blood Count 8.7 K/UL (4.8-10.8) Red Blood Count 2.57 M/UL (4.70-6.10) L Hemoglobin 7.7 G/DL (14.2-18.0) L Hematocrit 23.4 % (42.0-52.0) L Mean Corpuscular Volume 91 FL (80-99) Mean Corpuscular Hemoglobin 29.9 PG (27.0-31.0) Mean Corpuscular Hemoglobin Concent 32.8 G/DL (32.0-36.0) Red Cell Distribution Width 13.2 % (11.6-14.8) Platelet Count 138 K/UL (150-450) L Mean Platelet Volume 6.5 FL (6.5-10.1) Neutrophils (%) (Auto) % (45.0-75.0) Lymphocytes (%) (Auto) % (20.0-45.0) Monocytes (%) (Auto) % (1.0-10.0) Eosinophils (%) (Auto) % (0.0-3.0) Basophils (%) (Auto) % (0.0-2.0) Differential Total Cells Counted 100 Neutrophils % (Manual) 82 % (45-75) H Lymphocytes % (Manual) 11 % (20-45) L Monocytes % (Manual) 7 % (1-10) Eosinophils % (Manual) 0 % (0-3) Basophils % (Manual) 0 % (0-2) Band Neutrophils 0 % (0-8) Platelet Estimate Decreased L Platelet Morphology Normal Hypochromasia 1+ Sodium Level 137 MMOL/L (136-145) Potassium Level 4.0 MMOL/L (3.5-5.1) Chloride Level 104 MMOL/L (98-107) Carbon Dioxide Level 28 MMOL/L (21-32) Anion Gap 5 mmol/L (5-15) Blood Urea Nitrogen 42 mg/dL (7-18) H Creatinine 2.9 MG/DL (0.55-1.30) H Estimat Glomerular Filtration Rate 21.3 mL/min (>60) Glucose Level 76 MG/DL (74-106) # Uric Acid 4.4 MG/DL (2.6-7.2) Calcium Level 7.6 MG/DL (8.5-10.1) L Phosphorus Level 3.1 MG/DL (2.5-4.9) Magnesium Level 1.9 MG/DL (1.8-2.4) Total Bilirubin 0.4 MG/DL (0.2-1.0) Aspartate Amino Transf (AST/SGOT) 19 U/L (15-37) Alanine Aminotransferase (ALT/SGPT) 28 U/L (12-78) Alkaline Phosphatase 73 U/L (46-116) C-Reactive Protein, Quantitative 2.0 mg/dL (0.00-0.90) H Pro-B-Type Natriuretic Peptide 1255 pg/mL (0-125) H Total Protein 4.8 G/DL (6.4-8.2) L Albumin 1.6 G/DL (3.4-5.0) L Globulin 3.2 g/dL Albumin/Globulin Ratio 0.5 (1.0-2.7) L Objective HEAD AND NECK: Shows no JVD. LUNGS: Clear. CARDIOVASCULAR: Shows regular S1 and S2 with no gallop. ABDOMEN: Soft. EXTREMITIES: Right Femoral Yazan is pulled out. No pitting edema. Sivakumar Escalante MD Nov 16, 2020 14:28
--- NOTE | 2020-11-16 15:09 | Infectious Diseases Prog Note ---
Assessment/Plan Assessment/Plan A; COVID19 pneumonia Hypoxemia Acute renal failure improving Rhabdomyolysis Diarrhea, C. difficile negative DKA Hyperthyroidism Anemia Leukocytosis improving P; Finished Dexamethasone course Observe off antibiotic Subjective ROS Limited/Unobtainable: Yes Neurologic: Reports: confusion, other - on restraint Allergies: Coded Allergies: No Known Allergies (Unverified , 10/31/20) Objective Last 24 Hour Vital Signs Date Time Temp Pulse Resp B/P (MAP) Pulse Ox O2 Delivery O2 Flow Rate FiO2 11/16/20 12:00 97.9 71 18 138/68 (91) 97 11/16/20 12:00 61 11/16/20 09:01 73 150/70 11/16/20 09:00 Room Air 11/16/20 08:59 73 150/70 11/16/20 08:00 72 11/16/20 08:00 98.8 73 20 150/70 (96) 94 11/16/20 04:00 89 11/16/20 04:00 98.7 89 19 137/65 (89) 93 11/16/20 00:00 75 11/16/20 00:00 97.2 75 18 154/72 (99) 93 11/15/20 21:01 99 152/68 11/15/20 21:00 Room Air 11/15/20 21:00 92 11/15/20 21:00 97.8 92 19 152/68 (96) 92 11/15/20 17:22 90 125/61 11/15/20 16:00 98.0 80 20 125/61 (82) 98 11/15/20 16:00 90 Height (Feet): 5 Height (Inches): 5.00 Weight (Pounds): 150 HEENT: mucous membranes moist Respiratory/Chest: no respiratory distress Cardiovascular: normal rate Abdomen: soft, non tender Extremities: no edema Neurologic/Psychiatric: other - sleeping Laboratory Tests Test 11/15/20 20:51 11/16/20 05:43 11/16/20 06:08 11/16/20 11:43 POC Whole Blood Glucose 257 MG/DL (74-106) H 85 MG/DL (74-106) 223 MG/DL (74-106) H White Blood Count 8.7 K/UL (4.8-10.8) Red Blood Count 2.57 M/UL (4.70-6.10) L Hemoglobin 7.7 G/DL (14.2-18.0) L Hematocrit 23.4 % (42.0-52.0) L Mean Corpuscular Volume 91 FL (80-99) Mean Corpuscular Hemoglobin 29.9 PG (27.0-31.0) Mean Corpuscular Hemoglobin Concent 32.8 G/DL (32.0-36.0) Red Cell Distribution Width 13.2 % (11.6-14.8) Platelet Count 138 K/UL (150-450) L Mean Platelet Volume 6.5 FL (6.5-10.1) Neutrophils (%) (Auto) % (45.0-75.0) Lymphocytes (%) (Auto) % (20.0-45.0) Monocytes (%) (Auto) % (1.0-10.0) Eosinophils (%) (Auto) % (0.0-3.0) Basophils (%) (Auto) % (0.0-2.0) Differential Total Cells Counted 100 Neutrophils % (Manual) 82 % (45-75) H Lymphocytes % (Manual) 11 % (20-45) L Monocytes % (Manual) 7 % (1-10) Eosinophils % (Manual) 0 % (0-3) Basophils % (Manual) 0 % (0-2) Band Neutrophils 0 % (0-8) Platelet Estimate Decreased L Platelet Morphology Normal Hypochromasia 1+ Sodium Level 137 MMOL/L (136-145) Potassium Level 4.0 MMOL/L (3.5-5.1) Chloride Level 104 MMOL/L (98-107) Carbon Dioxide Level 28 MMOL/L (21-32) Anion Gap 5 mmol/L (5-15) Blood Urea Nitrogen 42 mg/dL (7-18) H Creatinine 2.9 MG/DL (0.55-1.30) H Estimat Glomerular Filtration Rate 21.3 mL/min (>60) Glucose Level 76 MG/DL (74-106) # Uric Acid 4.4 MG/DL (2.6-7.2) Calcium Level 7.6 MG/DL (8.5-10.1) L Phosphorus Level 3.1 MG/DL (2.5-4.9) Magnesium Level 1.9 MG/DL (1.8-2.4) Total Bilirubin 0.4 MG/DL (0.2-1.0) Aspartate Amino Transf (AST/SGOT) 19 U/L (15-37) Alanine Aminotransferase (ALT/SGPT) 28 U/L (12-78) Alkaline Phosphatase 73 U/L (46-116) C-Reactive Protein, Quantitative 2.0 mg/dL (0.00-0.90) H Pro-B-Type Natriuretic Peptide 1255 pg/mL (0-125) H Total Protein 4.8 G/DL (6.4-8.2) L Albumin 1.6 G/DL (3.4-5.0) L Globulin 3.2 g/dL Albumin/Globulin Ratio 0.5 (1.0-2.7) L Current Medications Medications (Trade) Dose Ordered Sig/Manasa Route PRN Reason Start Time Stop Time Status Last Admin Dose Admin Acetaminophen (Tylenol) 500 mg Q4H PRN ORAL For Pain 11/01/20 01:00 12/01/20 00:59 11/01/20 18:50 Acetaminophen (Tylenol) 650 mg Q4H PRN RECTAL Temp >100.5 11/01/20 21:30 12/01/20 21:29 Allopurinol (Zyloprim) 200 mg DAILY ORAL 11/01/20 16:00 12/01/20 15:59 11/16/20 09:01 Amiodarone HCl (Cordarone) 200 mg DAILY ORAL 11/10/20 09:00 02/08/21 08:59 11/16/20 09:00 Chlorhexidine Gluconate (María Elena-Hex 2%) 1 applic DAILY@2000 TOPIC 11/04/20 20:00 02/02/21 19:59 11/15/20 21:00 Clonidine HCl (Catapres Tab) 0.1 mg Q4H PRN ORAL bp over 160 syst 10/31/20 17:45 01/29/21 17:44 11/01/20 09:20 Dextrose (Dextrose 50%) 25 ml Q30M PRN IV Hypoglycemia 11/01/20 07:15 01/30/21 07:14 Dextrose (Dextrose 50%) 50 ml Q30M PRN IV Hypoglycemia 11/01/20 07:15 01/30/21 07:14 Diltiazem HCl (Cardizem Tab) 90 mg BID ORAL 11/07/20 10:15 12/02/20 17:59 11/16/20 09:01 Docusate Sodium (Colace) 100 mg TWICE A DAY ORAL 10/31/20 18:00 11/30/20 17:59 11/16/20 08:59 Enoxaparin Sodium (Lovenox) 30 mg DAILY SUBQ 11/16/20 09:00 02/14/21 08:59 11/16/20 09:04 Haloperidol Lactate (Haldol) 5 mg Q6H PRN IM Agitation 11/06/20 21:30 12/21/20 21:29 11/15/20 08:52 Insulin Aspart (NovoLOG) BEFORE MEALS AND HS SUBQ 11/01/20 11:30 01/30/21 11:29 11/16/20 11:50 Insulin Aspart (NovoLOG) 8 units NOVOTIAC SUBQ 11/16/20 06:30 01/30/21 11:49 11/16/20 11:51 Insulin Detemir (Levemir) 8 units QHS SUBQ 11/16/20 21:00 01/30/21 08:59 Methimazole (Tapazole) 10 mg DAILY ORAL 11/03/20 09:00 12/03/20 08:59 11/16/20 08:59 Metoprolol Tartrate (Lopressor) 50 mg Q12HR ORAL 11/01/20 21:00 01/30/21 20:59 11/16/20 08:59 Ondansetron HCl (Zofran) 4 mg Q6H PRN IVP Nausea & Vomiting 11/07/20 16:30 12/07/20 16:29 11/07/20 17:28 Pantoprazole (Protonix) 40 mg BID ORAL 10/31/20 18:00 11/30/20 17:44 11/16/20 08:59 Sitagliptin Phosphate (Januvia) 25 mg ACBREAKFAST ORAL 11/06/20 06:30 12/06/20 06:29 11/16/20 06:09 Tamsulosin HCl (Flomax) 0.4 mg BID ORAL 11/03/20 12:00 12/03/20 11:59 11/16/20 09:00 Vitamin D (Vitamin D) 5,000 unit DAILY ORAL 11/13/20 09:00 12/13/20 08:59 11/16/20 09:02 Reji Connelly MD Nov 16, 2020 15:09
[2020-11-16 16:00] VITALS: BP 141/71
--- NOTE | 2020-11-16 19:00 | NUR ---
NURSE NOTES: Received report from ARPITA Mendoza; AOX2-3, Romansh speaking; noted comfortable in bed with blood transfusion of PRBCs infusing; pt smiling and interacting during rounds; with bilateral soft wrist restraints intact; skin and circulation intact; with peripheral IV site on R hand intact infusing blood; with accuchecks ACHS; will continue to monitor blood glucose levels; will offer fluids and urinal; call light within reach; side rails x3; bed locked and in low position; will continue to monitor.
--- NOTE | 2020-11-16 19:42 | NUR ---
NURSE HAND-OFF REPORT: Important Events on Shift:[Blood transfusion ] Patient Status: [Full code] Diet: [Renal Puree] Pending Orders: [N/A] Pending Results/Labs:[N/A] Pending MD notification:[N/A] Latest Vital Signs: Temperature 97.7 , Pulse 94 , B/P 114 /59 , Respiratory Rate 18 , O2 SAT 93 , Nasal Cannula, O2 Flow Rate 2.0 . Vital Sign Comment: [] EKG Rhythm: Sinus Rhythm Rhythm change?: N Notified?: Amari MCQUEEN MD Response: Message left await call Latest Bhat Fall Score: 50 Fall Risk: High Risk Safety Measures: Call light Within Reach, Bed Alarm Zone 1, Side Rails Side Rails x3, Bed position Low and Locked. Fall Precautions: Yellow Socks Yellow Gown Report given to [ARPITA Antonio].
[2020-11-16 20:00] VITALS: BP 115/55
--- NOTE | 2020-11-16 20:22 | General Progress Note ---
Subjective ROS Limited/Unobtainable: Yes Allergies: Coded Allergies: No Known Allergies (Unverified , 10/31/20) Objective Last 24 Hour Vital Signs Date Time Temp Pulse Resp B/P (MAP) Pulse Ox O2 Delivery O2 Flow Rate FiO2 11/16/20 18:21 94 114/59 11/16/20 16:00 63 11/16/20 16:00 97.7 63 18 141/71 (94) 93 11/16/20 12:00 97.9 71 18 138/68 (91) 97 11/16/20 12:00 61 11/16/20 09:01 73 150/70 11/16/20 09:00 Room Air 11/16/20 08:59 73 150/70 11/16/20 08:00 72 11/16/20 08:00 98.8 73 20 150/70 (96) 94 11/16/20 04:00 89 11/16/20 04:00 98.7 89 19 137/65 (89) 93 11/16/20 00:00 75 11/16/20 00:00 97.2 75 18 154/72 (99) 93 11/15/20 21:01 99 152/68 11/15/20 21:00 Room Air 11/15/20 21:00 92 11/15/20 21:00 97.8 92 19 152/68 (96) 92 Intake and Output 11/15/20 11/16/20 19:00 07:00 Intake Total 240 ml 800 ml Output Total 300 ml Balance 240 ml 500 ml Intake Oral 240 ml 800 ml Output Urine Total 300 ml # Voids 3 Laboratory Tests 11/15/20 20:51: POC Whole Blood Glucose 257H 11/16/20 05:43: White Blood Count 8.7, Red Blood Count 2.57L, Hemoglobin 7.7L, Hematocrit 23.4L, Mean Corpuscular Volume 91, Mean Corpuscular Hemoglobin 29.9, Mean Corpuscular Hemoglobin Concent 32.8, Red Cell Distribution Width 13.2, Platelet Count 138L, Mean Platelet Volume 6.5, Neutrophils (%) (Auto) , Lymphocytes (%) (Auto) , Monocytes (%) (Auto) , Eosinophils (%) (Auto) , Basophils (%) (Auto) , Differential Total Cells Counted 100, Neutrophils % (Manual) 82H, Lymphocytes % (Manual) 11L, Monocytes % (Manual) 7, Eosinophils % (Manual) 0, Basophils % (Manual) 0, Band Neutrophils 0, Platelet Estimate DecreasedL, Platelet Morphology Normal, Hypochromasia 1+, Sodium Level 137, Potassium Level 4.0, Chloride Level 104, Carbon Dioxide Level 28, Anion Gap 5, Blood Urea Nitrogen 42H, Creatinine 2.9H, Estimat Glomerular Filtration Rate 21.3, Glucose Level 76#, Uric Acid 4.4, Calcium Level 7.6L, Phosphorus Level 3.1, Magnesium Level 1.9, Total Bilirubin 0.4, Aspartate Amino Transf (AST/SGOT) 19, Alanine Aminotransferase (ALT/SGPT) 28, Alkaline Phosphatase 73, C-Reactive Protein, Quantitative 2.0H, Pro-B-Type Natriuretic Peptide 1255H, Total Protein 4.8L, Albumin 1.6L, Globulin 3.2, Albumin/Globulin Ratio 0.5L 11/16/20 06:08: POC Whole Blood Glucose 85 11/16/20 11:43: POC Whole Blood Glucose 223H 11/16/20 16:40: POC Whole Blood Glucose 124H Height (Feet): 5 Height (Inches): 5.00 Weight (Pounds): 150 Assessment/Plan Problem List: (1) Renal failure (ARF), acute on chronic ICD Codes: N17.9 - Acute kidney failure, unspecified; N18.9 - Chronic kidney disease, unspecified SNOMED: 488650433 (2) DKA (diabetic ketoacidoses) ICD Codes: E11.10 - Type 2 diabetes mellitus with ketoacidosis without coma SNOMED: 824218802, 17523709 (3) COVID-19 virus infection ICD Codes: U07.1 - COVID-19 SNOMED: 591811791 (4) Rhabdomyolysis ICD Codes: M62.82 - Rhabdomyolysis SNOMED: 503959577 (5) Diabetes mellitus out of control ICD Codes: E11.65 - Type 2 diabetes mellitus with hyperglycemia SNOMED: 54017077, 187484348 (6) Abnormal thyroid blood test ICD Codes: R79.89 - Other specified abnormal findings of blood chemistry SNOMED: 573917660, 600471662634816 (7) NSTEMI (non-ST elevated myocardial infarction) ICD Codes: I21.4 - Non-ST elevation (NSTEMI) myocardial infarction SNOMED: 68282760 Status: progressing, unchanged Assessment/Plan: covid + resp insuff pna sepsis no change afebrile reviewed chart and labs s/p dehydration Corey Soto MD Nov 16, 2020 20:22
[2020-11-16] MEDS ORDERED: Levemir Flexpen SUBQ SCH (21:00)
[2020-11-16] MEDS: Dyna-Hex 2% Top Sol 2oz TOPIC SCH (21:34)
--- NOTE | 2020-11-16 22:05 | NUR ---
NURSE NOTES: Blood transfusion of PRBCs 1 unit completed using R hand IV site; infused 250ml without any adverse reactions; pt tolerated procedure well; mental status within baseline; Post transfusion V/S as follows: [id number]-[id number]/52-92% on room air; charge nurse aware; blood tubing sent down to lab; pt sleeping at this time; comfortable in bed; will continue to monitor.
[2020-11-17] VITALS: BP 110/53
[2020-11-17 04:00] VITALS: BP 124/61
[2020-11-17] MEDS: sitaGLIPtin 25mg tab ORAL SCH (05:51)
[2020-11-17] MEDS: NovoLOG Insulin Flexpen SUBQ SCH ×7 (05:56→20:54)
--- NOTE | 2020-11-17 06:38 | General Progress Note ---
Subjective ROS Limited/Unobtainable: Yes Allergies: Coded Allergies: No Known Allergies (Unverified , 10/31/20) Subjective events noted interval notes reviewed fasting glucose on lower side Item Value Date Time Bedside Blood Glucose 87 mg/dl 11/17/20 0630 Bedside Blood Glucose 161 mg/dl H 11/16/20 2142 Bedside Blood Glucose 124 mg/dl H 11/16/20 1657 Bedside Blood Glucose 223 mg/dl H 11/16/20 1151 Bedside Blood Glucose 85 mg/dl 11/16/20 0630 Objective Last 24 Hour Vital Signs Date Time Temp Pulse Resp B/P (MAP) Pulse Ox O2 Delivery O2 Flow Rate FiO2 11/17/20 04:00 98.9 58 20 124/61 (82) 97 11/17/20 04:00 58 11/17/20 00:00 98.1 55 20 110/53 (72) 97 11/17/20 00:00 55 11/16/20 21:35 69 115/55 11/16/20 21:00 Room Air 11/16/20 20:00 69 11/16/20 20:00 98.5 69 20 115/55 (75) 96 11/16/20 18:21 94 114/59 11/16/20 16:00 63 11/16/20 16:00 97.7 63 18 141/71 (94) 93 11/16/20 12:00 97.9 71 18 138/68 (91) 97 11/16/20 12:00 61 11/16/20 09:01 73 150/70 11/16/20 09:00 Room Air 11/16/20 08:59 73 150/70 11/16/20 08:00 72 11/16/20 08:00 98.8 73 20 150/70 (96) 94 Intake and Output 11/16/20 11/17/20 19:00 07:00 Intake Total 360 ml 400 ml Output Total 350 ml 700 ml Balance 10 ml -300 ml Intake Oral 360 ml 400 ml Output Urine Total 350 ml 700 ml # Voids 1 Laboratory Tests 11/16/20 11:43: POC Whole Blood Glucose 223H 11/16/20 16:40: POC Whole Blood Glucose 124H 11/16/20 21:38: POC Whole Blood Glucose 161H 11/17/20 05:53: POC Whole Blood Glucose 87 Height (Feet): 5 Height (Inches): 5.00 Weight (Pounds): 150 Objective Current Medications Medications (Trade) Dose Ordered Sig/Manasa Route PRN Reason Start Time Stop Time Status Last Admin Dose Admin Acetaminophen (Tylenol) 500 mg Q4H PRN ORAL For Pain 11/01/20 01:00 12/01/20 00:59 11/01/20 18:50 Acetaminophen (Tylenol) 650 mg Q4H PRN RECTAL Temp >100.5 11/01/20 21:30 12/01/20 21:29 Allopurinol (Zyloprim) 200 mg DAILY ORAL 11/01/20 16:00 12/01/20 15:59 11/16/20 09:01 Amiodarone HCl (Cordarone) 200 mg DAILY ORAL 11/10/20 09:00 02/08/21 08:59 11/16/20 09:00 Chlorhexidine Gluconate (María Elena-Hex 2%) 1 applic DAILY@2000 TOPIC 11/04/20 20:00 02/02/21 19:59 11/16/20 21:34 Clonidine HCl (Catapres Tab) 0.1 mg Q4H PRN ORAL bp over 160 syst 10/31/20 17:45 01/29/21 17:44 11/01/20 09:20 Dextrose (Dextrose 50%) 25 ml Q30M PRN IV Hypoglycemia 11/01/20 07:15 01/30/21 07:14 Dextrose (Dextrose 50%) 50 ml Q30M PRN IV Hypoglycemia 11/01/20 07:15 01/30/21 07:14 Diltiazem HCl (Cardizem Tab) 90 mg BID ORAL 11/07/20 10:15 12/02/20 17:59 11/16/20 18:21 Docusate Sodium (Colace) 100 mg TWICE A DAY ORAL 10/31/20 18:00 11/30/20 17:59 11/16/20 18:21 Enoxaparin Sodium (Lovenox) 30 mg DAILY SUBQ 11/16/20 09:00 02/14/21 08:59 11/16/20 09:04 Haloperidol Lactate (Haldol) 5 mg Q6H PRN IM Agitation 11/06/20 21:30 12/21/20 21:29 11/15/20 08:52 Insulin Aspart (NovoLOG) BEFORE MEALS AND HS SUBQ 11/01/20 11:30 01/30/21 11:29 11/16/20 21:41 Insulin Aspart (NovoLOG) 8 units NOVOTIAC SUBQ 11/16/20 06:30 01/30/21 11:49 11/16/20 16:57 Insulin Detemir (Levemir) 8 units QHS SUBQ 11/16/20 21:00 01/30/21 08:59 11/16/20 21:42 Methimazole (Tapazole) 10 mg DAILY ORAL 11/03/20 09:00 12/03/20 08:59 11/16/20 08:59 Metoprolol Tartrate (Lopressor) 50 mg Q12HR ORAL 11/01/20 21:00 01/30/21 20:59 11/16/20 21:35 Ondansetron HCl (Zofran) 4 mg Q6H PRN IVP Nausea & Vomiting 11/07/20 16:30 12/07/20 16:29 11/07/20 17:28 Pantoprazole (Protonix) 40 mg BID ORAL 10/31/20 18:00 11/30/20 17:44 11/16/20 18:21 Sitagliptin Phosphate (Januvia) 25 mg ACBREAKFAST ORAL 11/06/20 06:30 12/06/20 06:29 11/17/20 05:51 Tamsulosin HCl (Flomax) 0.4 mg BID ORAL 11/03/20 12:00 12/03/20 11:59 11/16/20 18:21 Vitamin D (Vitamin D) 5,000 unit DAILY ORAL 11/13/20 09:00 12/13/20 08:59 11/16/20 09:02 Assessment/Plan Problem List: (1) Abnormal thyroid blood test ICD Codes: R79.89 - Other specified abnormal findings of blood chemistry SNOMED: 764695547, 825985500301637 (2) Diabetes mellitus out of control ICD Codes: E11.65 - Type 2 diabetes mellitus with hyperglycemia SNOMED: 09278692, 637240845 (3) Renal failure (ARF), acute on chronic ICD Codes: N17.9 - Acute kidney failure, unspecified; N18.9 - Chronic kidney disease, unspecified SNOMED: 383278695 (4) COVID-19 virus infection ICD Codes: U07.1 - COVID-19 SNOMED: 882391808 (5) DKA (diabetic ketoacidoses) ICD Codes: E11.10 - Type 2 diabetes mellitus with ketoacidosis without coma SNOMED: 350555745, 62873636 (6) NSTEMI (non-ST elevated myocardial infarction) ICD Codes: I21.4 - Non-ST elevation (NSTEMI) myocardial infarction SNOMED: 11767259 Status: progressing, unchanged Assessment/Plan: reduce Levemir 8 to 6 units qhs continue Novolog 8 units ac tid continue Novolog sliding scale ac hs continue Januvia 25 mg daily continue Tapazole 10 mg daily TSI pending Markus Tamez MD Nov 17, 2020 06:38
--- NOTE | 2020-11-17 06:40 | NUR ---
NURSE NOTES: Dr. Weaver saw pt and ordered CBC, BMP 3 series; order noted and carried out.
--- NOTE | 2020-11-17 06:53 | NUR ---
NURSE HAND-OFF REPORT: Important Events on Shift: Tolerated 1 unit of PRBCs; No ASE; remains with bilateral soft wrist restraints; intact skin and circulation Patient Status: AOX2; stable Diet: Renal puree moist, offered liquids as tolerated Pending Orders: CBC, BMP 3 series Pending Results/Labs: N Pending notification: N Latest Vital Signs: Temperature 98.9 , Pulse 58 , B/P 124 /61 , Respiratory Rate 20 , O2 SAT 97 , Nasal Cannula, O2 Flow Rate 2.0 . Vital Sign Comment: stable EKG Rhythm: Sinus Bradycardia Rhythm change?: N MD Notified?: N Response: N/A Latest Bhat Fall Score: 50 Fall Risk: High Risk Safety Measures: Call light Within Reach, Bed Alarm Zone 1, Side Rails Side Rails x3, Bed position Low and Locked. Fall Precautions: Yellow Socks Yellow Gown Report given to ARPITA Mendoza.
--- NOTE | 2020-11-17 07:25 | NUR ---
NURSE NOTES: Patient seen in bed in semifowlers position, eating breakfast with no complaints of pain 0/10 and under no acute signs of distress. The patient is on room air with oxygen saturation within normal limits. the patient has a right 22G wrist Iv that is saline locked, patent, clean and intact. The patients bed is in lowest position, locked, side rails x3, bed alarm in zone 1 and call light within reach.
[2020-11-17 08:00] VITALS: BP 134/55
[2020-11-17] MEDS: dilTIAZem HCl 90mg tab ORAL SCH ×2 (08:58→18:35)
[2020-11-17] MEDS: Amiodarone 200mg tab ORAL SCH (08:59)
[2020-11-17] MEDS: Vitamin D 1000 units Tab ORAL SCH (09:00)
[2020-11-17] MEDS: methIMAzole 10mg tab ORAL SCH (09:01)
[2020-11-17] MEDS: Tamsulosin 0.4mg cap ORAL SCH ×2 (09:01→18:35)
[2020-11-17] MEDS: Allopurinol 100mg Tab ORAL SCH (09:01)
[2020-11-17] MEDS: Docusate 100mg cap ORAL SCH ×2 (09:01→18:35)
[2020-11-17] MEDS: Metoprolol Tartrate 50mg tab ORAL SCH ×2 (09:03→20:42)
[2020-11-17] MEDS: Enoxaparin 30mg Inj SUBQ SCH (09:05)
--- NOTE | 2020-11-17 09:17 | Cardiac Electrophysiology PN ---
Assessment/Plan Assessment/Plan 1. NSTEMI with troponin of 0.25 and 0.35 in this patient with DKA as well as atrial flutter with rapid ventricular response. On metoprolol 50 mg b.i.d. EF 65% 2. Atrial flutter with RVR On metoprolol 50 mg bid, Cardizem 90 bid and Amiodarone 200 po daily Eliquis held for hematuria 3. Diabetic ketoacidosis with glucose of more than 1000. 4. Accelerated hypertension. On Lopressor 50 bid and Cardizem 90 bid 5. COVID positive pneumonia. 6. Acute Renal failure in the setting of total CK of 1900, maybe rhabdomyolysis- induced renal failure. On HD via RFV Yazan by Dr. Buckley. RFV Yazan pulled out by patient. S/P New Yazan on 11/11/20 Yazan to be removed today as no more need for HD 7. Anemia. S/P PRBC 11/16 DW RN Subjective Subjective Pulled out his RFV Yazan catheter after HD 11/08/20. S/P new Yazan catheter placement 11/11/20. In restraints in covid isolation. On RA In SR on Amio, Cardizem and metoprolol. Off Eliquis due to hematuria R IJ HD catheter to be removed today. Had PRBC for Hb 7.7 Objective Last 24 Hour Vital Signs Date Time Temp Pulse Resp B/P (MAP) Pulse Ox O2 Delivery O2 Flow Rate FiO2 11/17/20 09:03 61 134/55 11/17/20 08:58 61 134/55 11/17/20 04:00 98.9 58 20 124/61 (82) 97 11/17/20 04:00 58 11/17/20 00:00 98.1 55 20 110/53 (72) 97 11/17/20 00:00 55 11/16/20 21:35 69 115/55 11/16/20 21:00 Room Air 11/16/20 20:00 69 11/16/20 20:00 98.5 69 20 115/55 (75) 96 11/16/20 18:21 94 114/59 11/16/20 16:00 63 11/16/20 16:00 97.7 63 18 141/71 (94) 93 11/16/20 12:00 97.9 71 18 138/68 (91) 97 11/16/20 12:00 61 Intake and Output 11/16/20 11/17/20 19:00 07:00 Intake Total 360 ml 400 ml Output Total 350 ml 700 ml Balance 10 ml -300 ml Intake Oral 360 ml 400 ml Output Urine Total 350 ml 700 ml # Voids 1 Laboratory Tests Test 11/16/20 11:43 11/16/20 16:40 11/16/20 21:38 11/17/20 05:53 POC Whole Blood Glucose 223 MG/DL (74-106) H 124 MG/DL (74-106) H 161 MG/DL (74-106) H 87 MG/DL (74-106) Objective HEAD AND NECK: Shows no JVD. LUNGS: Clear. CARDIOVASCULAR: Shows regular S1 and S2 with no gallop. ABDOMEN: Soft. EXTREMITIES: Right Femoral Yazan is pulled out. No pitting edema. Sivakumar Escalante MD Nov 17, 2020 09:17
--- NOTE | 2020-11-17 10:38 | Hematology/Onc Progress Note ---
Assessment/Plan Assessment/Plan Assessment/Plan # Anemia of chronic disease due to underlying chronic medical issues, Multifactorial --> Anemia w/u has been ordered --> No evidence of hemolysis is noted, peripheral smear has been reviewed. --> Hgb goal >7. Transfuse prn. --> Epogen or iron at this time is not particularly indicated --> hgb 7.8 # Thrombocytopenia - potential causes multifactorial, evaluate liver and viral etiologies, in this case due to covid19+++++ --> Hep panel and HIV ordered --> US abd to evaluate for cirrhosis and hsm ordered-->neg --> Peripheral smear ordered to evaluate for blasts /schistocytes --> abx and other meds have been reviewed --> ok for ppx if plt >50k w/ wither heparin or lovenox --> plt 128 # Elevated ddimer due to covid19+++ --> venous duplex neg --> ok for lovenox sq # NSTEMI with troponin of 0.25 and 0.35 in this patient with DKA as well as atrial flutter with rapid ventricular response. --> per cards, metoprolol 50 mg b.i.d. EF 65% # Atrial flutter with RVR On metoprolol 50 mg bid, Cardizem 90 bid and Amiodarone 200 po daily --> Eliquis held for hematuria # Diabetic ketoacidosis with glucose of more than 1000. # Accelerated hypertension. On Lopressor 50 bid and Cardizem 90 bid # COVID positive pneumonia. # Acute Renal failure in the setting of total CK of 1900, maybe rhabdomyolysis- induced renal failure. --> hd per renal --> S/P Bakari Hand on 11/11/20 # Dvt ppx lovenox sq Time of note does not necessarily correspond to the time the patient was seen. Appreciate consultation greatly. Subjective Constitutional: Denies: no symptoms, chills, fever, malaise, weakness, other HEENT: Denies: no symptoms, eye pain, blurred vision, tearing, double vision, ear pain, ear discharge, nose pain, nose congestion, throat pain, throat swelling, mouth pain, mouth swelling, other Cardiovascular: Denies: no symptoms, chest pain, edema, irregular heart rate, lightheadedness, palpitations, syncope, other Genitourinary: Denies: no symptoms, burning, discharge, frequency, flank pain, hematuria, incontinence, pain, urgency, other Neurologic/Psychiatric: Denies: no symptoms, anxiety, depressed, emotional problems, headache, numbness, paresthesia, pre-existing deficit, seizure, tingling, tremors, weakness, other Endocrine: Denies: no symptoms, excessive sweating, flushing, intolerance to cold, intolerance to heat, increased hunger, increased thirst, increased urine, unexplained weight gain, unexplained weight loss, other Hematologic/Lymphatic: Denies: no symptoms, anemia, easy bleeding, easy bruising, adenopathy, other Allergies: Coded Allergies: No Known Allergies (Unverified , 10/31/20) Subjective 11/17 meds noted, labs reviewed, cbc has been ordered for today hgb 7.7 Objective Objective Current Medications Medications (Trade) Dose Ordered Sig/Manasa Route PRN Reason Start Time Stop Time Status Last Admin Dose Admin Acetaminophen (Tylenol) 500 mg Q4H PRN ORAL For Pain 11/01/20 01:00 12/01/20 00:59 11/01/20 18:50 Acetaminophen (Tylenol) 650 mg Q4H PRN RECTAL Temp >100.5 11/01/20 21:30 12/01/20 21:29 Allopurinol (Zyloprim) 200 mg DAILY ORAL 11/01/20 16:00 12/01/20 15:59 11/17/20 09:01 Amiodarone HCl (Cordarone) 200 mg DAILY ORAL 11/10/20 09:00 02/08/21 08:59 11/17/20 08:59 Chlorhexidine Gluconate (María Elena-Hex 2%) 1 applic DAILY@1999 TOPIC 11/04/20 20:00 02/02/21 19:59 11/16/20 21:34 Clonidine HCl (Catapres Tab) 0.1 mg Q4H PRN ORAL bp over 160 syst 10/31/20 17:45 01/29/21 17:44 11/01/20 09:20 Dextrose (Dextrose 50%) 25 ml Q30M PRN IV Hypoglycemia 11/01/20 07:15 01/30/21 07:14 Dextrose (Dextrose 50%) 50 ml Q30M PRN IV Hypoglycemia 11/01/20 07:15 01/30/21 07:14 Diltiazem HCl (Cardizem Tab) 90 mg BID ORAL 11/07/20 10:15 12/02/20 17:59 11/16/20 18:21 Docusate Sodium (Colace) 100 mg TWICE A DAY ORAL 10/31/20 18:00 11/30/20 17:59 11/17/20 09:01 Enoxaparin Sodium (Lovenox) 30 mg DAILY SUBQ 11/16/20 09:00 02/14/21 08:59 11/17/20 09:05 Haloperidol Lactate (Haldol) 5 mg Q6H PRN IM Agitation 11/06/20 21:30 12/21/20 21:29 11/15/20 08:52 Insulin Aspart (NovoLOG) BEFORE MEALS AND HS SUBQ 11/01/20 11:30 01/30/21 11:29 11/16/20 21:41 Insulin Aspart (NovoLOG) 8 units NOVOTIAC SUBQ 11/16/20 06:30 01/30/21 11:49 11/16/20 16:57 Insulin Detemir (Levemir) 6 units QHS SUBQ 11/17/20 21:00 01/30/21 08:59 Methimazole (Tapazole) 10 mg DAILY ORAL 11/03/20 09:00 12/03/20 08:59 11/17/20 09:01 Metoprolol Tartrate (Lopressor) 50 mg Q12HR ORAL 11/01/20 21:00 01/30/21 20:59 11/17/20 09:03 Ondansetron HCl (Zofran) 4 mg Q6H PRN IVP Nausea & Vomiting 11/07/20 16:30 12/07/20 16:29 11/07/20 17:28 Pantoprazole (Protonix) 40 mg BID ORAL 10/31/20 18:00 11/30/20 17:44 11/17/20 09:00 Sitagliptin Phosphate (Januvia) 25 mg ACBREAKFAST ORAL 11/06/20 06:30 12/06/20 06:29 11/17/20 05:51 Tamsulosin HCl (Flomax) 0.4 mg BID ORAL 11/03/20 12:00 12/03/20 11:59 11/17/20 09:01 Vitamin D (Vitamin D) 5,000 unit DAILY ORAL 11/13/20 09:00 12/13/20 08:59 11/17/20 09:00 Last 24 Hour Vital Signs Date Time Temp Pulse Resp B/P (MAP) Pulse Ox O2 Delivery O2 Flow Rate FiO2 11/17/20 09:03 61 134/55 11/17/20 09:00 Room Air 11/17/20 08:58 61 134/55 11/17/20 08:00 54 11/17/20 08:00 97.9 61 17 134/55 (81) 97 11/17/20 04:00 98.9 58 20 124/61 (82) 97 11/17/20 04:00 58 11/17/20 00:00 98.1 55 20 110/53 (72) 97 11/17/20 00:00 55 11/16/20 21:35 69 115/55 11/16/20 21:00 Room Air 11/16/20 20:00 69 11/16/20 20:00 98.5 69 20 115/55 (75) 96 11/16/20 18:21 94 114/59 11/16/20 16:00 63 11/16/20 16:00 97.7 63 18 141/71 (94) 93 11/16/20 12:00 97.9 71 18 138/68 (91) 97 11/16/20 12:00 61 11/16/20 09:01 73 150/70 11/16/20 09:00 Room Air 11/16/20 08:59 73 150/70 11/16/20 08:00 72 11/16/20 08:00 98.8 73 20 150/70 (96) 94 11/16/20 04:00 89 11/16/20 04:00 98.7 89 19 137/65 (89) 93 11/16/20 00:00 75 11/16/20 00:00 97.2 75 18 154/72 (99) 93 11/15/20 21:01 99 152/68 11/15/20 21:00 Room Air 11/15/20 21:00 92 11/15/20 21:00 97.8 92 19 152/68 (96) 92 11/15/20 17:22 90 125/61 11/15/20 16:00 98.0 80 20 125/61 (82) 98 11/15/20 16:00 90 11/15/20 12:00 79 11/15/20 12:00 98.7 64 18 123/87 (99) 98 Intake and Output 11/16/20 11/17/20 19:00 07:00 Intake Total 360 ml 400 ml Output Total 350 ml 700 ml Balance 10 ml -300 ml Intake Oral 360 ml 400 ml Output Urine Total 350 ml 700 ml # Voids 1 Labs Test 11/14/20 11:25 11/14/20 16:54 11/14/20 21:22 11/15/20 06:20 POC Whole Blood Glucose 354 MG/DL (74-106) 171 MG/DL (74-106) 214 MG/DL (74-106) 250 MG/DL (74-106) Test 11/15/20 07:40 11/15/20 20:51 11/16/20 05:43 11/16/20 06:08 White Blood Count 8.5 K/UL (4.8-10.8) 8.7 K/UL (4.8-10.8) Red Blood Count 2.69 M/UL (4.70-6.10) 2.57 M/UL (4.70-6.10) Hemoglobin 8.0 G/DL (14.2-18.0) 7.7 G/DL (14.2-18.0) Hematocrit 24.5 % (42.0-52.0) 23.4 % (42.0-52.0) Mean Corpuscular Volume 91 FL (80-99) 91 FL (80-99) Mean Corpuscular Hemoglobin 29.7 PG (27.0-31.0) 29.9 PG (27.0-31.0) Mean Corpuscular Hemoglobin Concent 32.6 G/DL (32.0-36.0) 32.8 G/DL (32.0-36.0) Red Cell Distribution Width 12.7 % (11.6-14.8) 13.2 % (11.6-14.8) Platelet Count 151 K/UL (150-450) 138 K/UL (150-450) Mean Platelet Volume 6.3 FL (6.5-10.1) 6.5 FL (6.5-10.1) Neutrophils (%) (Auto) 83.9 % (45.0-75.0) % (45.0-75.0) Lymphocytes (%) (Auto) 8.9 % (20.0-45.0) % (20.0-45.0) Monocytes (%) (Auto) 5.0 % (1.0-10.0) % (1.0-10.0) Eosinophils (%) (Auto) 1.4 % (0.0-3.0) % (0.0-3.0) Basophils (%) (Auto) 0.6 % (0.0-2.0) % (0.0-2.0) Sodium Level 136 MMOL/L (136-145) 137 MMOL/L (136-145) Potassium Level 4.1 MMOL/L (3.5-5.1) 4.0 MMOL/L (3.5-5.1) Chloride Level 103 MMOL/L (98-107) 104 MMOL/L (98-107) Carbon Dioxide Level 26 MMOL/L (21-32) 28 MMOL/L (21-32) Anion Gap 7 mmol/L (5-15) 5 mmol/L (5-15) Blood Urea Nitrogen 52 mg/dL (7-18) 42 mg/dL (7-18) Creatinine 3.2 MG/DL (0.55-1.30) 2.9 MG/DL (0.55-1.30) Estimat Glomerular Filtration Rate 19.0 mL/min (>60) 21.3 mL/min (>60) Glucose Level 193 MG/DL (74-106) 76 MG/DL (74-106) Calcium Level 7.9 MG/DL (8.5-10.1) 7.6 MG/DL (8.5-10.1) Phosphorus Level 3.5 MG/DL (2.5-4.9) 3.1 MG/DL (2.5-4.9) Total Bilirubin 0.3 MG/DL (0.2-1.0) 0.4 MG/DL (0.2-1.0) Aspartate Amino Transf (AST/SGOT) 19 U/L (15-37) 19 U/L (15-37) Alanine Aminotransferase (ALT/SGPT) 33 U/L (12-78) 28 U/L (12-78) Alkaline Phosphatase 81 U/L (46-116) 73 U/L (46-116) C-Reactive Protein, Quantitative 1.8 mg/dL (0.00-0.90) 2.0 mg/dL (0.00-0.90) Pro-B-Type Natriuretic Peptide 934 pg/mL (0-125) 1255 pg/mL (0-125) Total Protein 5.0 G/DL (6.4-8.2) 4.8 G/DL (6.4-8.2) Albumin 1.7 G/DL (3.4-5.0) 1.6 G/DL (3.4-5.0) Globulin 3.3 g/dL 3.2 g/dL Albumin/Globulin Ratio 0.5 (1.0-2.7) 0.5 (1.0-2.7) POC Whole Blood Glucose 257 MG/DL (74-106) 85 MG/DL (74-106) Differential Total Cells Counted 100 Neutrophils % (Manual) 82 % (45-75) Lymphocytes % (Manual) 11 % (20-45) Monocytes % (Manual) 7 % (1-10) Eosinophils % (Manual) 0 % (0-3) Basophils % (Manual) 0 % (0-2) Band Neutrophils 0 % (0-8) Platelet Estimate Decreased Platelet Morphology Normal Hypochromasia 1+ Uric Acid 4.4 MG/DL (2.6-7.2) Magnesium Level 1.9 MG/DL (1.8-2.4) Test 11/16/20 11:43 11/16/20 16:40 11/16/20 21:38 11/17/20 05:53 POC Whole Blood Glucose 223 MG/DL (74-106) 124 MG/DL (74-106) 161 MG/DL (74-106) 87 MG/DL (74-106) Height (Feet): 5 Height (Inches): 5.00 Weight (Pounds): 150 Objective Physical Exam: Vitals: reviewed General: NAD HEENT: nc, at Neck: supple Chest: clear breath sounds bilaterally Cardiovascular: RRR, no s3, s4 Abdomen: soft, nontender, nd Extremities: no cce, normal range of motion Neuro: alert and oriented Montrell Weaver MD Nov 17, 2020 10:38
--- NOTE | 2020-11-17 10:50 | NUR ---
Right IJ HD Catheter Removed as ordered. no bleeding no Hematoma noted. complete catheter pulled out. Pt. tolerated procedure well. Vital signs stable, no SOB noted. Rn instructed to monitor for bleeding.
--- NOTE | 2020-11-17 11:48 | NUR ---
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
[2020-11-17 12:00] VITALS: BP 118/52
--- NOTE | 2020-11-17 12:25 | Nephrology Progress Note ---
Assessment/Plan Problem List: (1) Renal failure (ARF), acute on chronic (2) DKA (diabetic ketoacidoses) (3) COVID-19 virus infection (4) Rhabdomyolysis (5) Abnormal thyroid blood test (6) NSTEMI (non-ST elevated myocardial infarction) Assessment 75-year-old Portuguese male Covid positive Acute renal failure, most likely superimposed on chronic kidney disease Diabetes mellitus, presents with severe hyperglycemia and DKA History of hypertension Plan November 17: No labs drawn today. No dialysis since November 08. Plan to remove all of dialysis catheter. Check labs tomorrow if in-house. November 16: Labs reviewed. Serum creatinine lower 2.9. No need for dialysis catheter anymore. Continue as is. November 15: Labs reviewed. Serum creatinine unchanged. Calculated creatinine clearance 19 mL/h. No dialysis needed at this time. November 14: Lab reviewed. Serum creatinine 3.2 unchanged. No need for dialysis. Continue per consultants. November 13: Lab reviewed. Serum creatinine 3.2. No need for dialysis today. Continue to monitor renal parameters. Continue per consultants. November 12: Labs reviewed. Serum creatinine 3. No dialysis needed today. Continue to monitor renal parameters. November 11: Labs reviewed. Serum creatinine higher. Due for placement of a Nontunneled catheter today. We will schedule dialysis as needed. Patient's leukocytosis gradually improving. November 10: Lab reviewed. Serum creatinine rising. We will proceed with placement of a nontunneled catheter tomorrow and dialysis. Patient has leukocytosis at this time. Continue per consultants. November 09: Labs reviewed. Patient was dialyzed yesterday. Patient pulled out the dialysis catheter last night. Renal parameters stable. Continue to monitor and if dialysis needed to place a new temporary catheter. Per orders. November 08: Labs reviewed. Serum creatinine is plateauing. Due for dialysis today. We will continue to monitor renal parameters and dialysis as needed. November 07: Labs reviewed. Serum creatinine rising. IV fluid discontinued. Dialysis for tomorrow. Continue per consultants. November 06: Labs reviewed. Blood pressure stable. Medication list reviewed. Dialysis as needed. November 05: Due for dialysis today. Labs are reviewed. Blood pressure is stable. Continue to monitor renal parameters. November 04: Patient was dialyzed yesterday. 1 L ultrafiltrated. Labs reviewed. Renal parameters stable. Will attempt dialysis again tomorrow. Medication list reviewed. November 03: Labs reviewed. Serum creatinine rising. Patient has hematuria. Patient on Eliquis. Will arrange for placement of dialysis catheter and attempt to dialyze. Will start Flomax since the patient could not have a Anand catheter. Continue to monitor renal parameters. Continue per consultants. Discussed with RN. Consent for placement of nontunneled catheter ordered. Patient is also on Tapazole for high thyroid hormone. CPK is lowering. November 02: Labs reviewed. Serum creatinine up to 4. In S DU now. On Cardizem drip. Measured creatinine clearance . Patient may lead towards dialysis. Continue to monitor renal parameters. November 01: Renal parameters improving. Blood sugar is improving. Continue to monitor electrolytes renal parameters and urine output. Aim to control blood sugar and blood pressure. Avoid nephrotoxic's. Monitor CPK as it is elevated. Previously: Anand catheter Blood sugar control Slow hydration Monitor renal parameters Kidney ultrasound no hydronephrosis 2D echocardiogram ejection fraction 60 to 65%. Per orders Subjective ROS Limited/Unobtainable: No Constitutional: Reports: malaise, weakness Objective Objective Last 24 Hour Vital Signs Date Time Temp Pulse Resp B/P (MAP) Pulse Ox O2 Delivery O2 Flow Rate FiO2 11/17/20 09:03 61 134/55 11/17/20 09:00 Room Air 11/17/20 08:58 61 134/55 11/17/20 08:00 54 11/17/20 08:00 97.9 61 17 134/55 (81) 97 11/17/20 04:00 98.9 58 20 124/61 (82) 97 11/17/20 04:00 58 11/17/20 00:00 98.1 55 20 110/53 (72) 97 11/17/20 00:00 55 11/16/20 21:35 69 115/55 11/16/20 21:00 Room Air 11/16/20 20:00 69 11/16/20 20:00 98.5 69 20 115/55 (75) 96 11/16/20 18:21 94 114/59 11/16/20 16:00 63 11/16/20 16:00 97.7 63 18 141/71 (94) 93 Intake and Output 11/16/20 11/17/20 19:00 07:00 Intake Total 360 ml 400 ml Output Total 350 ml 700 ml Balance 10 ml -300 ml Intake Oral 360 ml 400 ml Output Urine Total 350 ml 700 ml # Voids 1 Current Medications Medications (Trade) Dose Ordered Sig/Manasa Route PRN Reason Start Time Stop Time Status Last Admin Dose Admin Acetaminophen (Tylenol) 500 mg Q4H PRN ORAL For Pain 11/01/20 01:00 12/01/20 00:59 11/01/20 18:50 Acetaminophen (Tylenol) 650 mg Q4H PRN RECTAL Temp >100.5 11/01/20 21:30 12/01/20 21:29 Allopurinol (Zyloprim) 200 mg DAILY ORAL 11/01/20 16:00 12/01/20 15:59 11/17/20 09:01 Amiodarone HCl (Cordarone) 200 mg DAILY ORAL 11/10/20 09:00 02/08/21 08:59 11/17/20 08:59 Chlorhexidine Gluconate (María Elena-Hex 2%) 1 applic DAILY@2000 TOPIC 11/04/20 20:00 02/02/21 19:59 11/16/20 21:34 Clonidine HCl (Catapres Tab) 0.1 mg Q4H PRN ORAL bp over 160 syst 10/31/20 17:45 01/29/21 17:44 11/01/20 09:20 Dextrose (Dextrose 50%) 25 ml Q30M PRN IV Hypoglycemia 11/01/20 07:15 01/30/21 07:14 Dextrose (Dextrose 50%) 50 ml Q30M PRN IV Hypoglycemia 11/01/20 07:15 01/30/21 07:14 Diltiazem HCl (Cardizem Tab) 90 mg BID ORAL 11/07/20 10:15 12/02/20 17:59 11/16/20 18:21 Docusate Sodium (Colace) 100 mg TWICE A DAY ORAL 10/31/20 18:00 11/30/20 17:59 11/17/20 09:01 Enoxaparin Sodium (Lovenox) 30 mg DAILY SUBQ 11/16/20 09:00 02/14/21 08:59 11/17/20 09:05 Haloperidol Lactate (Haldol) 5 mg Q6H PRN IM Agitation 11/06/20 21:30 12/21/20 21:29 11/15/20 08:52 Insulin Aspart (NovoLOG) BEFORE MEALS AND HS SUBQ 11/01/20 11:30 01/30/21 11:29 11/17/20 12:18 Insulin Aspart (NovoLOG) 8 units NOVOTIAC SUBQ 11/16/20 06:30 01/30/21 11:49 11/17/20 12:19 Insulin Detemir (Levemir) 6 units QHS SUBQ 11/17/20 21:00 01/30/21 08:59 Methimazole (Tapazole) 10 mg DAILY ORAL 11/03/20 09:00 12/03/20 08:59 11/17/20 09:01 Metoprolol Tartrate (Lopressor) 50 mg Q12HR ORAL 11/01/20 21:00 01/30/21 20:59 11/17/20 09:03 Ondansetron HCl (Zofran) 4 mg Q6H PRN IVP Nausea & Vomiting 11/07/20 16:30 12/07/20 16:29 11/07/20 17:28 Pantoprazole (Protonix) 40 mg BID ORAL 10/31/20 18:00 11/30/20 17:44 11/17/20 09:00 Sitagliptin Phosphate (Januvia) 25 mg ACBREAKFAST ORAL 11/06/20 06:30 12/06/20 06:29 11/17/20 05:51 Tamsulosin HCl (Flomax) 0.4 mg BID ORAL 11/03/20 12:00 12/03/20 11:59 11/17/20 09:01 Vitamin D (Vitamin D) 5,000 unit DAILY ORAL 11/13/20 09:00 12/13/20 08:59 11/17/20 09:00 Laboratory Tests 11/16/20 16:40: POC Whole Blood Glucose 124H 11/16/20 21:38: POC Whole Blood Glucose 161H 11/17/20 05:53: POC Whole Blood Glucose 87 11/17/20 11:41: POC Whole Blood Glucose 157H Height (Feet): 5 Height (Inches): 5.00 Weight (Pounds): 150 General Appearance: no apparent distress Cardiovascular: normal rate Respiratory/Chest: decreased breath sounds Abdomen: distended Garth Buckley MD Nov 17, 2020 12:25
--- NOTE | 2020-11-17 13:12 | Pulmonology Progress Note ---
Subjective ROS Limited/Unobtainable: No Interval Events: none major reported per nursing Constitutional: Denies: fever Gastrointestinal/Abdominal: Reports: diarrhea - C. diff negative Psychiatric: Reports: other - on restraint Allergies: Coded Allergies: No Known Allergies (Unverified , 10/31/20) Objective Last 24 Hour Vital Signs Date Time Temp Pulse Resp B/P (MAP) Pulse Ox O2 Delivery O2 Flow Rate FiO2 11/17/20 12:00 97.1 62 17 118/52 (74) 99 11/17/20 12:00 59 11/17/20 09:03 61 134/55 11/17/20 09:00 Room Air 11/17/20 08:58 61 134/55 11/17/20 08:00 54 11/17/20 08:00 97.9 61 17 134/55 (81) 97 11/17/20 04:00 98.9 58 20 124/61 (82) 97 11/17/20 04:00 58 11/17/20 00:00 98.1 55 20 110/53 (72) 97 11/17/20 00:00 55 11/16/20 21:35 69 115/55 11/16/20 21:00 Room Air 11/16/20 20:00 69 11/16/20 20:00 98.5 69 20 115/55 (75) 96 11/16/20 18:21 94 114/59 11/16/20 16:00 63 11/16/20 16:00 97.7 63 18 141/71 (94) 93 Intake and Output 11/16/20 11/17/20 19:00 07:00 Intake Total 360 ml 400 ml Output Total 350 ml 700 ml Balance 10 ml -300 ml Intake Oral 360 ml 400 ml Output Urine Total 350 ml 700 ml # Voids 1 Objective now on room air General Appearance: WD/WN, no acute distress HEENT: atraumatic Respiratory: chest wall non-tender Cardiovascular: normal rate, regular rhythm Abdomen: soft, non tender Laboratory Tests 11/16/20 16:40: POC Whole Blood Glucose 124H 11/16/20 21:38: POC Whole Blood Glucose 161H 11/17/20 05:53: POC Whole Blood Glucose 87 11/17/20 11:41: POC Whole Blood Glucose 157H Current Medications Medications (Trade) Dose Ordered Sig/Manasa Route PRN Reason Start Time Stop Time Status Last Admin Dose Admin Acetaminophen (Tylenol) 500 mg Q4H PRN ORAL For Pain 11/01/20 01:00 12/01/20 00:59 11/01/20 18:50 Acetaminophen (Tylenol) 650 mg Q4H PRN RECTAL Temp >100.5 11/01/20 21:30 12/01/20 21:29 Allopurinol (Zyloprim) 200 mg DAILY ORAL 11/01/20 16:00 12/01/20 15:59 11/17/20 09:01 Amiodarone HCl (Cordarone) 200 mg DAILY ORAL 11/10/20 09:00 02/08/21 08:59 11/17/20 08:59 Chlorhexidine Gluconate (María Elena-Hex 2%) 1 applic DAILY@2000 TOPIC 11/04/20 20:00 02/02/21 19:59 11/16/20 21:34 Clonidine HCl (Catapres Tab) 0.1 mg Q4H PRN ORAL bp over 160 syst 10/31/20 17:45 01/29/21 17:44 11/01/20 09:20 Dextrose (Dextrose 50%) 25 ml Q30M PRN IV Hypoglycemia 11/01/20 07:15 01/30/21 07:14 Dextrose (Dextrose 50%) 50 ml Q30M PRN IV Hypoglycemia 11/01/20 07:15 01/30/21 07:14 Diltiazem HCl (Cardizem Tab) 90 mg BID ORAL 11/07/20 10:15 12/02/20 17:59 11/16/20 18:21 Docusate Sodium (Colace) 100 mg TWICE A DAY ORAL 10/31/20 18:00 11/30/20 17:59 11/17/20 09:01 Enoxaparin Sodium (Lovenox) 30 mg DAILY SUBQ 11/16/20 09:00 02/14/21 08:59 11/17/20 09:05 Haloperidol Lactate (Haldol) 5 mg Q6H PRN IM Agitation 11/06/20 21:30 12/21/20 21:29 11/15/20 08:52 Insulin Aspart (NovoLOG) BEFORE MEALS AND HS SUBQ 11/01/20 11:30 01/30/21 11:29 11/17/20 12:18 Insulin Aspart (NovoLOG) 8 units NOVOTIAC SUBQ 11/16/20 06:30 01/30/21 11:49 11/17/20 12:19 Insulin Detemir (Levemir) 6 units QHS SUBQ 11/17/20 21:00 01/30/21 08:59 Methimazole (Tapazole) 10 mg DAILY ORAL 11/03/20 09:00 12/03/20 08:59 11/17/20 09:01 Metoprolol Tartrate (Lopressor) 50 mg Q12HR ORAL 11/01/20 21:00 01/30/21 20:59 11/17/20 09:03 Ondansetron HCl (Zofran) 4 mg Q6H PRN IVP Nausea & Vomiting 11/07/20 16:30 12/07/20 16:29 11/07/20 17:28 Pantoprazole (Protonix) 40 mg BID ORAL 10/31/20 18:00 11/30/20 17:44 11/17/20 09:00 Sitagliptin Phosphate (Januvia) 25 mg ACBREAKFAST ORAL 11/06/20 06:30 12/06/20 06:29 11/17/20 05:51 Tamsulosin HCl (Flomax) 0.4 mg BID ORAL 11/03/20 12:00 12/03/20 11:59 11/17/20 09:01 Vitamin D (Vitamin D) 5,000 unit DAILY ORAL 11/13/20 09:00 12/13/20 08:59 11/17/20 09:00 Assessment/Plan Assessment/Plan 1. Non-ST elevation myocardial infarction. - cardiology following 2. Diabetic ketoacidosis - seen by endocrinology - continue fluids - on insulin 3. Atrial flutter with rapid ventricular response. - Continue metoprolol 50 mg b.i.d. 4. COVID positive pneumonia. - s/p Decadron (11/03-11/12) - Supplemental O2 - saturating at 94% on RA; weaned off oxygen - CXR 11/04 developing b/l infilitrates 5. Renal failure - nephrology following - pt pulled out femoral HD cath, s/p new IJ - removal of HD line once stable 6. Accelerated hypertension. 7. Hyperthyroidism - Dr. Tamez following 8. Diarrhea - C. diff negative 9. DVT ppx - s/p Eliquis - We will restart low dose Lovenox given eGFR <30 - ok to continue if plt >50K per heme onc 10. Anemia - s/p transfusion (11/16) Medically stable for discharge from pulmonary standpoint The care for this patient was discussed with my supervising physician Time spent for this case was approximately 31 minutes Singh Buchanan Nov 17, 2020 13:12
--- NOTE | 2020-11-17 14:09 | NUR ---
NURSE NOTES: Contacted Dr. Singh for possible removal of bilateral soft restraints due to D/C of patients right IJ cannula, said not to remove as they are still indicated.
[2020-11-17 16:00] VITALS: BP 112/73
--- NOTE | 2020-11-17 17:45 | Surgery Progress Note ---
Surgery Progress Note Subjective Procedure Performed Right femoral temporary hemodialysis catheter insertion Symptoms: improved Objective Last 24 Hour Vital Signs Date Time Temp Pulse Resp B/P (MAP) Pulse Ox O2 Delivery O2 Flow Rate FiO2 11/17/20 12:00 97.1 62 17 118/52 (74) 99 11/17/20 12:00 59 11/17/20 09:03 61 134/55 11/17/20 09:00 Room Air 11/17/20 08:58 61 134/55 11/17/20 08:00 54 11/17/20 08:00 97.9 61 17 134/55 (81) 97 11/17/20 04:00 98.9 58 20 124/61 (82) 97 11/17/20 04:00 58 11/17/20 00:00 98.1 55 20 110/53 (72) 97 11/17/20 00:00 55 11/16/20 21:35 69 115/55 11/16/20 21:00 Room Air 11/16/20 20:00 69 11/16/20 20:00 98.5 69 20 115/55 (75) 96 11/16/20 18:21 94 114/59 I&O Intake and Output 11/16/20 11/17/20 19:00 07:00 Intake Total 360 ml 400 ml Output Total 350 ml 700 ml Balance 10 ml -300 ml Intake Oral 360 ml 400 ml Output Urine Total 350 ml 700 ml # Voids 1 Dressing: dry Wound: clean Cardiovascular: RSR Respiratory: clear Abdomen: soft, flat, non-tender, present bowel sounds Extremities: no edema, no tenderness, no cyanosis Laboratory Tests Test 11/16/20 21:38 11/17/20 05:53 11/17/20 11:41 POC Whole Blood Glucose 161 MG/DL (74-106) H 87 MG/DL (74-106) 157 MG/DL (74-106) H Plan Problems: (1) DKA (diabetic ketoacidoses) (2) Renal failure (ARF), acute on chronic Assessment & Plan: s/p temp HD line recovering plan remove line soon (3) COVID-19 virus infection Assessment & Plan: 75-year-old male Covid positive renal insufficiency recently had temporary dialysis catheter placement develop leukocytosis soon after. Vitals noted. Exam stable. Catheter was evaluated no acute active inflammatory or infectious process identified. Catheter is clean dry intact. The dressings are not saturated. There is no active bleeding identified. There is no signs of active infection. Leukocytosis anterior collated to medications currently given for COVID-19 infection. Will monitor closely to ensure no active development of infection or related to catheter placement. Thank you for let me participate patient's care will follow with recommendations trend leukocytosis cont dressings cont care plan as noted cont HD trend renal function (4) Rhabdomyolysis Assessment & Plan: improved resuscitated no n/v tolerating diet labs improved likely secondary to down DAILY ESTIMATED NEEDS: Needs based on DM, pulmonary 68.4kg 25-30 kcals/kg 7918-6424 total kcals 1-1.5 g protein/kg 68-102 g total protein 25-30 mL/kg 9168-8683 total fluid mLs NUTRITION DIAGNOSIS: Altered nutrition related lab values r/t DKA as evidenced by Uglu 4+ on adm, small acetone detected, BG 1087 upon adm-> now improved, A1C 8.1. CURRENT DIET: Renal/ pureed moist+ Ensure TID PO DIET RECOMMENDATIONS: RENAL/ CCHO MED diet (texture as tolerated) ADDITIONAL RECOMMENDATIONS: 1) Monitor renal fxn and lytes, continuity of HD last HD 11/08, K, phos, mag wnl 2) Monitor BGs closely for hypoglycemia w/ insulin regimen 3) Maintain calibrated bed scale wts 4) Nephrovite x 1 5) Monitor for continued improved intake - rec to decrease HPN to QD at this time. Rec [place] (5) Diabetes mellitus out of control (6) Abnormal thyroid blood test (7) NSTEMI (non-ST elevated myocardial infarction) Norberto Steele Nov 17, 2020 17:45
--- NOTE | 2020-11-17 19:25 | NUR ---
NURSE HAND-OFF REPORT: Important Events on Shift:[Removal of IJ] Patient Status: [Full code] Diet: [Renal puree] Pending Orders: [N/A] Pending Results/Labs:[N/A] Pending MD notification:[N/A] Latest Vital Signs: Temperature 98.2 , Pulse 73 , B/P 112 /73 , Respiratory Rate 20 , O2 SAT 99 , Nasal Cannula, O2 Flow Rate 2.0 . Vital Sign Comment: [] EKG Rhythm: Sinus Bradycardia Rhythm change?: N MD Notified?: Amari MCQUEEN MD Response: Message left await call Latest Bhat Fall Score: 50 Fall Risk: High Risk Safety Measures: Call light Within Reach, Bed Alarm Zone 1, Side Rails Side Rails x3, Bed position Low and Locked. Fall Precautions: Yellow Socks Yellow Gown Report given to [ARPITA Jung].
--- NOTE | 2020-11-17 19:29 | General Progress Note ---
Subjective ROS Limited/Unobtainable: Yes Allergies: Coded Allergies: No Known Allergies (Unverified , 10/31/20) Objective Last 24 Hour Vital Signs Date Time Temp Pulse Resp B/P (MAP) Pulse Ox O2 Delivery O2 Flow Rate FiO2 11/17/20 18:35 73 112/73 11/17/20 16:00 98.2 69 20 112/73 (86) 99 69 69 11/17/20 16:00 59 11/17/20 12:00 97.1 62 17 118/52 (74) 99 11/17/20 12:00 59 11/17/20 09:03 61 134/55 11/17/20 09:00 Room Air 11/17/20 08:58 61 134/55 11/17/20 08:00 54 11/17/20 08:00 97.9 61 17 134/55 (81) 97 11/17/20 04:00 98.9 58 20 124/61 (82) 97 11/17/20 04:00 58 11/17/20 00:00 98.1 55 20 110/53 (72) 97 11/17/20 00:00 55 11/16/20 21:35 69 115/55 11/16/20 21:00 Room Air 11/16/20 20:00 69 11/16/20 20:00 98.5 69 20 115/55 (75) 96 Intake and Output 11/16/20 11/17/20 19:00 07:00 Intake Total 360 ml 400 ml Output Total 350 ml 700 ml Balance 10 ml -300 ml Intake Oral 360 ml 400 ml Output Urine Total 350 ml 700 ml # Voids 1 Laboratory Tests 11/16/20 21:38: POC Whole Blood Glucose 161H 11/17/20 05:53: POC Whole Blood Glucose 87 11/17/20 11:41: POC Whole Blood Glucose 157H Height (Feet): 5 Height (Inches): 5.00 Weight (Pounds): 150 Assessment/Plan Problem List: (1) Renal failure (ARF), acute on chronic ICD Codes: N17.9 - Acute kidney failure, unspecified; N18.9 - Chronic kidney disease, unspecified SNOMED: 649508458 (2) DKA (diabetic ketoacidoses) ICD Codes: E11.10 - Type 2 diabetes mellitus with ketoacidosis without coma SNOMED: 232883517, 99241840 (3) COVID-19 virus infection ICD Codes: U07.1 - COVID-19 SNOMED: 158476062 (4) Rhabdomyolysis ICD Codes: M62.82 - Rhabdomyolysis SNOMED: 496058889 (5) Diabetes mellitus out of control ICD Codes: E11.65 - Type 2 diabetes mellitus with hyperglycemia SNOMED: 03488620, 152197324 (6) Abnormal thyroid blood test ICD Codes: R79.89 - Other specified abnormal findings of blood chemistry SNOMED: 446123334, 524155219073313 (7) NSTEMI (non-ST elevated myocardial infarction) ICD Codes: I21.4 - Non-ST elevation (NSTEMI) myocardial infarction SNOMED: 31155627 Status: progressing, unchanged Assessment/Plan: covid + resp insuff pna sepsis esrd .HD per renal dc palnning afebrile s/p dehydration Corey Soto MD Nov 17, 2020 19:29
--- NOTE | 2020-11-17 19:33 | NUR ---
NURSE NOTES: Pt received from ARPITA Mendoza. Pt is resting comfortably in bed and shows no sign of pain. Pt is A/Ox2 and Ukrainian speaking; pt is not agitated and on bed rest with restraints. Pt has bilateral soft restraints with pmsc x4 and skin intact. Pt has cardiac monitoring SR and asymptomatic. Pt is breathing unlabored on room air with mild wheezing on exhalation. Pt has RHand 22G patent with dressing dry and intact. Bed is locked in lowest position and call light within reach. Will continue to monitor.
[2020-11-17 20:00] VITALS: BP 120/56
[2020-11-17] MEDS: Dyna-Hex 2% Top Sol 2oz TOPIC SCH (20:00)
[2020-11-17] MEDS: Levemir Flexpen SUBQ SCH (20:53)
--- NOTE | 2020-11-17 23:16 | Psychiatric Progress Note ---
Psychiatry Progress Note Psychiatry Progress Note Medications Current Medications Medications (Trade) Dose Ordered Sig/Manasa Route PRN Reason Start Time Stop Time Status Last Admin Dose Admin Acetaminophen (Tylenol) 500 mg Q4H PRN ORAL For Pain 11/01/20 01:00 12/01/20 00:59 11/01/20 18:50 Acetaminophen (Tylenol) 650 mg Q4H PRN RECTAL Temp >100.5 11/01/20 21:30 12/01/20 21:29 Allopurinol (Zyloprim) 200 mg DAILY ORAL 11/01/20 16:00 12/01/20 15:59 11/17/20 09:01 Amiodarone HCl (Cordarone) 200 mg DAILY ORAL 11/10/20 09:00 02/08/21 08:59 11/17/20 08:59 Chlorhexidine Gluconate (María Elena-Hex 2%) 1 applic DAILY@1999 TOPIC 11/04/20 20:00 02/02/21 19:59 11/16/20 21:34 Clonidine HCl (Catapres Tab) 0.1 mg Q4H PRN ORAL bp over 160 syst 10/31/20 17:45 01/29/21 17:44 11/01/20 09:20 Dextrose (Dextrose 50%) 25 ml Q30M PRN IV Hypoglycemia 11/01/20 07:15 01/30/21 07:14 Dextrose (Dextrose 50%) 50 ml Q30M PRN IV Hypoglycemia 11/01/20 07:15 01/30/21 07:14 Diltiazem HCl (Cardizem Tab) 90 mg BID ORAL 11/07/20 10:15 12/02/20 17:59 11/17/20 18:35 Docusate Sodium (Colace) 100 mg TWICE A DAY ORAL 10/31/20 18:00 11/30/20 17:59 11/17/20 18:35 Enoxaparin Sodium (Lovenox) 30 mg DAILY SUBQ 11/16/20 09:00 02/14/21 08:59 11/17/20 09:05 Haloperidol Lactate (Haldol) 5 mg Q6H PRN IM Agitation 11/06/20 21:30 12/21/20 21:29 11/15/20 08:52 Insulin Aspart (NovoLOG) BEFORE MEALS AND HS SUBQ 11/01/20 11:30 01/30/21 11:29 11/17/20 17:24 Insulin Aspart (NovoLOG) 8 units NOVOTIAC SUBQ 11/16/20 06:30 01/30/21 11:49 11/17/20 16:50 Insulin Detemir (Levemir) 6 units QHS SUBQ 11/17/20 21:00 01/30/21 08:59 11/17/20 20:53 Methimazole (Tapazole) 10 mg DAILY ORAL 11/03/20 09:00 12/03/20 08:59 11/17/20 09:01 Metoprolol Tartrate (Lopressor) 50 mg Q12HR ORAL 11/01/20 21:00 01/30/21 20:59 11/17/20 20:42 Ondansetron HCl (Zofran) 4 mg Q6H PRN IVP Nausea & Vomiting 11/07/20 16:30 12/07/20 16:29 11/07/20 17:28 Pantoprazole (Protonix) 40 mg BID ORAL 10/31/20 18:00 11/30/20 17:44 11/17/20 18:34 Sitagliptin Phosphate (Januvia) 25 mg ACBREAKFAST ORAL 11/06/20 06:30 12/06/20 06:29 11/17/20 05:51 Tamsulosin HCl (Flomax) 0.4 mg BID ORAL 11/03/20 12:00 12/03/20 11:59 11/17/20 18:35 Vitamin D (Vitamin D) 5,000 unit DAILY ORAL 11/13/20 09:00 12/13/20 08:59 11/17/20 09:00 Neurological/Psychiatric: Denies: no symptoms, anxiety, depressed, emotional problems, headache, numbness, paresthesia, pre-existing deficit, seizure, tingling, tremors, weakness, other Allergies: Coded Allergies: No Known Allergies (Unverified , 10/31/20) Objective Data Height (Feet): 5 Height (Inches): 5.00 Weight (Pounds): 150 General Appearance: no apparent distress Additional Comments: The patient is confused, disoriented, Armenian-speaking. Mood is agitated. Affect is flat. Thought process disorganized. Thought content, no suicidal, homicidal ideation. Cognition is impaired. Insight and judgment is impaired. ASSESSMENT: [place] I Acute toxic encephalopathy. Dementia. [place] II Deferred. [place] III COVID-19. [place] IV Low. [place] V 20 PLAN: 1. We will start the patient on soft restraints. 2. Continue to follow and readjust the meds. Assessment/Plan Status: progressing, unchanged Brigido Singh MD Nov 17, 2020 23:16
[2020-11-18] VITALS: BP 131/59
[2020-11-18] MEDS: Haloperidol 5mg/ml Inj IM PRN ×2 (00:30→11:02)
[2020-11-18 04:00] VITALS: BP 120/60
[2020-11-18] MEDS: sitaGLIPtin 25mg tab ORAL SCH (05:32)
[2020-11-18] MEDS: NovoLOG Insulin Flexpen SUBQ SCH ×7 (05:35→22:20)
--- NOTE | 2020-11-18 06:21 | General Progress Note ---
Subjective ROS Limited/Unobtainable: Yes Allergies: Coded Allergies: No Known Allergies (Unverified , 10/31/20) Subjective events noted interval notes reviewed fair glycemic control Item Value Date Time Bedside Blood Glucose 165 mg/dl H 11/18/20 0536 Bedside Blood Glucose 105 mg/dl 11/17/20 2100 Bedside Blood Glucose 224 mg/dl H 11/17/20 1724 Bedside Blood Glucose 157 mg/dl H 11/17/20 1219 Bedside Blood Glucose 87 mg/dl 11/17/20 0630 Objective Last 24 Hour Vital Signs Date Time Temp Pulse Resp B/P (MAP) Pulse Ox O2 Delivery O2 Flow Rate FiO2 11/18/20 04:00 99.1 71 14 120/60 (80) 93 71 71 11/18/20 04:00 71 11/18/20 00:00 97.9 72 18 131/59 (83) 93 72 72 11/18/20 00:00 69 11/17/20 21:00 Room Air 11/17/20 20:42 69 120/56 11/17/20 20:00 70 11/17/20 20:00 98.2 69 14 120/56 (77) 99 69 69 11/17/20 18:35 73 112/73 11/17/20 16:00 98.2 69 20 112/73 (86) 99 69 69 11/17/20 16:00 59 11/17/20 12:00 97.1 62 17 118/52 (74) 99 11/17/20 12:00 59 11/17/20 09:03 61 134/55 11/17/20 09:00 Room Air 11/17/20 08:58 61 134/55 11/17/20 08:00 54 11/17/20 08:00 97.9 61 17 134/55 (81) 97 Intake and Output 11/17/20 11/18/20 19:00 07:00 Intake Total 840 ml Balance 840 ml Intake Oral 840 ml Laboratory Tests 11/17/20 11:41: POC Whole Blood Glucose 157H Height (Feet): 5 Height (Inches): 5.00 Weight (Pounds): 150 Objective Current Medications Medications (Trade) Dose Ordered Sig/Manasa Route PRN Reason Start Time Stop Time Status Last Admin Dose Admin Acetaminophen (Tylenol) 500 mg Q4H PRN ORAL For Pain 11/01/20 01:00 12/01/20 00:59 11/01/20 18:50 Acetaminophen (Tylenol) 650 mg Q4H PRN RECTAL Temp >100.5 11/01/20 21:30 12/01/20 21:29 Allopurinol (Zyloprim) 200 mg DAILY ORAL 11/01/20 16:00 12/01/20 15:59 11/17/20 09:01 Amiodarone HCl (Cordarone) 200 mg DAILY ORAL 11/10/20 09:00 02/08/21 08:59 11/17/20 08:59 Chlorhexidine Gluconate (María Elena-Hex 2%) 1 applic DAILY@1999 TOPIC 11/04/20 20:00 02/02/21 19:59 11/16/20 21:34 Clonidine HCl (Catapres Tab) 0.1 mg Q4H PRN ORAL bp over 160 syst 10/31/20 17:45 01/29/21 17:44 11/01/20 09:20 Dextrose (Dextrose 50%) 25 ml Q30M PRN IV Hypoglycemia 11/01/20 07:15 01/30/21 07:14 Dextrose (Dextrose 50%) 50 ml Q30M PRN IV Hypoglycemia 11/01/20 07:15 01/30/21 07:14 Diltiazem HCl (Cardizem Tab) 90 mg BID ORAL 11/07/20 10:15 12/02/20 17:59 11/17/20 18:35 Docusate Sodium (Colace) 100 mg TWICE A DAY ORAL 10/31/20 18:00 11/30/20 17:59 11/17/20 18:35 Enoxaparin Sodium (Lovenox) 30 mg DAILY SUBQ 11/16/20 09:00 02/14/21 08:59 11/17/20 09:05 Haloperidol Lactate (Haldol) 5 mg Q6H PRN IM Agitation 11/06/20 21:30 12/21/20 21:29 11/18/20 00:30 Insulin Aspart (NovoLOG) BEFORE MEALS AND HS SUBQ 11/01/20 11:30 01/30/21 11:29 11/18/20 05:35 Insulin Aspart (NovoLOG) 8 units NOVOTIAC SUBQ 11/16/20 06:30 01/30/21 11:49 11/18/20 05:36 Insulin Detemir (Levemir) 6 units QHS SUBQ 11/17/20 21:00 01/30/21 08:59 11/17/20 20:53 Methimazole (Tapazole) 10 mg DAILY ORAL 11/03/20 09:00 12/03/20 08:59 11/17/20 09:01 Metoprolol Tartrate (Lopressor) 50 mg Q12HR ORAL 11/01/20 21:00 01/30/21 20:59 11/17/20 20:42 Ondansetron HCl (Zofran) 4 mg Q6H PRN IVP Nausea & Vomiting 11/07/20 16:30 12/07/20 16:29 11/07/20 17:28 Pantoprazole (Protonix) 40 mg BID ORAL 10/31/20 18:00 11/30/20 17:44 11/17/20 18:34 Sitagliptin Phosphate (Januvia) 25 mg ACBREAKFAST ORAL 11/06/20 06:30 12/06/20 06:29 11/18/20 05:32 Tamsulosin HCl (Flomax) 0.4 mg BID ORAL 11/03/20 12:00 12/03/20 11:59 11/17/20 18:35 Vitamin D (Vitamin D) 5,000 unit DAILY ORAL 11/13/20 09:00 12/13/20 08:59 11/17/20 09:00 Assessment/Plan Problem List: (1) Abnormal thyroid blood test ICD Codes: R79.89 - Other specified abnormal findings of blood chemistry SNOMED: 296588666, 895443706177783 (2) Diabetes mellitus out of control ICD Codes: E11.65 - Type 2 diabetes mellitus with hyperglycemia SNOMED: 97210202, 796236425 (3) Renal failure (ARF), acute on chronic ICD Codes: N17.9 - Acute kidney failure, unspecified; N18.9 - Chronic kidney disease, unspecified SNOMED: 068595446 (4) COVID-19 virus infection ICD Codes: U07.1 - COVID-19 SNOMED: 246541868 (5) DKA (diabetic ketoacidoses) ICD Codes: E11.10 - Type 2 diabetes mellitus with ketoacidosis without coma SNOMED: 293595176, 29291151 (6) NSTEMI (non-ST elevated myocardial infarction) ICD Codes: I21.4 - Non-ST elevation (NSTEMI) myocardial infarction SNOMED: 99635272 Status: progressing, unchanged Assessment/Plan: continue Levemir 6 units qhs continue Novolog 8 units ac tid continue Novolog sliding scale ac hs continue Januvia 25 mg daily continue Tapazole 10 mg daily TSI pending Markus Tamez MD Nov 18, 2020 06:21
--- NOTE | 2020-11-18 06:31 | NUR ---
CASE MANAGEMENT:REVIEW 11/18/20 SI: KELLEY PNA. NSTEMI. AFLUTTER ACUTE RENAL FAILURE 99.1 71 14 120/60 93% ON RA IS: CARDIZEM PO BID AMIODARONE PO QD LOVENOX SQ QD NOVOLOG SQ TID AC JANUVIA PO QAM SS INSULIN AC+HS LEVEMIR SQ QHS FLOMAX PO BID TAPAZOLE PO QD LOPRESSOR PO Q12 ALLOPURINOL PO QD PROTONIX PO BID : TELEMETRY STATUS DCP: FROM HOME PLAN: TUNNELLED CATH TO BE DC'D ~ NO NEED FOR CONTINUED DIALYSIS
--- NOTE | 2020-11-18 07:17 | Hematology/Onc Progress Note ---
Assessment/Plan Assessment/Plan Assessment/Plan # Anemia of chronic disease due to underlying chronic medical issues, Multifactorial --> Anemia w/u has been ordered --> No evidence of hemolysis is noted, peripheral smear has been reviewed. --> Hgb goal >7. Transfuse prn. --> Epogen or iron at this time is not particularly indicated --> hgb 7.8 # Thrombocytopenia - potential causes multifactorial, evaluate liver and viral etiologies, in this case due to covid19+++++ --> Hep panel and HIV ordered --> US abd to evaluate for cirrhosis and hsm ordered-->neg --> Peripheral smear ordered to evaluate for blasts /schistocytes --> abx and other meds have been reviewed --> ok for ppx if plt >50k w/ wither heparin or lovenox --> plt 128 # Elevated ddimer due to covid19+++ --> venous duplex neg --> ok for lovenox sq # NSTEMI with troponin of 0.25 and 0.35 in this patient with DKA as well as atrial flutter with rapid ventricular response. --> per cards, metoprolol 50 mg b.i.d. EF 65% # Atrial flutter with RVR On metoprolol 50 mg bid, Cardizem 90 bid and Amiodarone 200 po daily --> Eliquis held for hematuria # Diabetic ketoacidosis with glucose of more than 1000. # Accelerated hypertension. On Lopressor 50 bid and Cardizem 90 bid # COVID positive pneumonia. # Acute Renal failure in the setting of total CK of 1900, maybe rhabdomyolysis- induced renal failure. --> hd per renal --> S/P Bakari Hand on 11/11/20 # Dvt ppx lovenox sq Time of note does not necessarily correspond to the time the patient was seen. Appreciate consultation greatly. Subjective HEENT: Denies: no symptoms, eye pain, blurred vision, tearing, double vision, ear pain, ear discharge, nose pain, nose congestion, throat pain, throat swe lling, mouth pain, mouth swelling, other Cardiovascular: Denies: no symptoms, chest pain, edema, irregular heart rate, lightheadedness, palpitations, syncope, other Genitourinary: Denies: no symptoms, burning, discharge, frequency, flank pain, hematuria, incontinence, pain, urgency, other Endocrine: Denies: no symptoms, excessive sweating, flushing, intolerance to cold, intolerance to heat, increased hunger, increased thirst, increased urine, unexplained weight gain, unexplained weight loss, other Allergies: Coded Allergies: No Known Allergies (Unverified , 10/31/20) Subjective 11/17 meds noted, labs reviewed, cbc has been ordered for today hgb 7.7 11/18 meds reviewed, is asymptomatic, labs ordered, no night sweats Objective Objective Current Medications Medications (Trade) Dose Ordered Sig/Manasa Route PRN Reason Start Time Stop Time Status Last Admin Dose Admin Acetaminophen (Tylenol) 500 mg Q4H PRN ORAL For Pain 11/01/20 01:00 12/01/20 00:59 11/01/20 18:50 Acetaminophen (Tylenol) 650 mg Q4H PRN RECTAL Temp >100.5 11/01/20 21:30 12/01/20 21:29 Allopurinol (Zyloprim) 200 mg DAILY ORAL 11/01/20 16:00 12/01/20 15:59 11/17/20 09:01 Amiodarone HCl (Cordarone) 200 mg DAILY ORAL 11/10/20 09:00 02/08/21 08:59 11/17/20 08:59 Chlorhexidine Gluconate (María Elena-Hex 2%) 1 applic DAILY@1999 TOPIC 11/04/20 20:00 02/02/21 19:59 11/16/20 21:34 Clonidine HCl (Catapres Tab) 0.1 mg Q4H PRN ORAL bp over 160 syst 10/31/20 17:45 01/29/21 17:44 11/01/20 09:20 Dextrose (Dextrose 50%) 25 ml Q30M PRN IV Hypoglycemia 11/01/20 07:15 01/30/21 07:14 Dextrose (Dextrose 50%) 50 ml Q30M PRN IV Hypoglycemia 11/01/20 07:15 01/30/21 07:14 Diltiazem HCl (Cardizem Tab) 90 mg BID ORAL 11/07/20 10:15 12/02/20 17:59 11/17/20 18:35 Docusate Sodium (Colace) 100 mg TWICE A DAY ORAL 10/31/20 18:00 11/30/20 17:59 11/17/20 18:35 Enoxaparin Sodium (Lovenox) 30 mg DAILY SUBQ 11/16/20 09:00 02/14/21 08:59 11/17/20 09:05 Haloperidol Lactate (Haldol) 5 mg Q6H PRN IM Agitation 11/06/20 21:30 12/21/20 21:29 11/18/20 00:30 Insulin Aspart (NovoLOG) BEFORE MEALS AND HS SUBQ 11/01/20 11:30 01/30/21 11:29 11/18/20 05:35 Insulin Aspart (NovoLOG) 8 units NOVOTIAC SUBQ 11/16/20 06:30 01/30/21 11:49 11/18/20 05:36 Insulin Detemir (Levemir) 6 units QHS SUBQ 11/17/20 21:00 01/30/21 08:59 11/17/20 20:53 Methimazole (Tapazole) 10 mg DAILY ORAL 11/03/20 09:00 12/03/20 08:59 11/17/20 09:01 Metoprolol Tartrate (Lopressor) 50 mg Q12HR ORAL 11/01/20 21:00 01/30/21 20:59 11/17/20 20:42 Ondansetron HCl (Zofran) 4 mg Q6H PRN IVP Nausea & Vomiting 11/07/20 16:30 12/07/20 16:29 11/07/20 17:28 Pantoprazole (Protonix) 40 mg BID ORAL 10/31/20 18:00 11/30/20 17:44 11/17/20 18:34 Sitagliptin Phosphate (Januvia) 25 mg ACBREAKFAST ORAL 11/06/20 06:30 12/06/20 06:29 11/18/20 05:32 Tamsulosin HCl (Flomax) 0.4 mg BID ORAL 11/03/20 12:00 12/03/20 11:59 11/17/20 18:35 Vitamin D (Vitamin D) 5,000 unit DAILY ORAL 11/13/20 09:00 12/13/20 08:59 11/17/20 09:00 Last 24 Hour Vital Signs Date Time Temp Pulse Resp B/P (MAP) Pulse Ox O2 Delivery O2 Flow Rate FiO2 11/18/20 04:00 99.1 71 14 120/60 (80) 93 71 71 11/18/20 04:00 71 11/18/20 00:00 97.9 72 18 131/59 (83) 93 72 72 11/18/20 00:00 69 11/17/20 21:00 Room Air 11/17/20 20:42 69 120/56 11/17/20 20:00 70 11/17/20 20:00 98.2 69 14 120/56 (77) 99 69 69 11/17/20 18:35 73 112/73 11/17/20 16:00 98.2 69 20 112/73 (86) 99 69 69 11/17/20 16:00 59 11/17/20 12:00 97.1 62 17 118/52 (74) 99 11/17/20 12:00 59 11/17/20 09:03 61 134/55 11/17/20 09:00 Room Air 11/17/20 08:58 61 134/55 11/17/20 08:00 54 11/17/20 08:00 97.9 61 17 134/55 (81) 97 11/17/20 04:00 98.9 58 20 124/61 (82) 97 11/17/20 04:00 58 11/17/20 00:00 98.1 55 20 110/53 (72) 97 11/17/20 00:00 55 11/16/20 21:35 69 115/55 11/16/20 21:00 Room Air 11/16/20 20:00 69 11/16/20 20:00 98.5 69 20 115/55 (75) 96 11/16/20 18:21 94 114/59 11/16/20 16:00 63 11/16/20 16:00 97.7 63 18 141/71 (94) 93 11/16/20 12:00 97.9 71 18 138/68 (91) 97 11/16/20 12:00 61 11/16/20 09:01 73 150/70 11/16/20 09:00 Room Air 11/16/20 08:59 73 150/70 11/16/20 08:00 72 11/16/20 08:00 98.8 73 20 150/70 (96) 94 Intake and Output 11/17/20 11/18/20 19:00 07:00 Intake Total 840 ml 720 ml Balance 840 ml 720 ml Intake Oral 840 ml 720 ml # Voids 2 # Bowel Movements 1 Labs Test 11/15/20 07:40 11/15/20 20:51 11/16/20 05:43 11/16/20 06:08 White Blood Count 8.5 K/UL (4.8-10.8) 8.7 K/UL (4.8-10.8) Red Blood Count 2.69 M/UL (4.70-6.10) 2.57 M/UL (4.70-6.10) Hemoglobin 8.0 G/DL (14.2-18.0) 7.7 G/DL (14.2-18.0) Hematocrit 24.5 % (42.0-52.0) 23.4 % (42.0-52.0) Mean Corpuscular Volume 91 FL (80-99) 91 FL (80-99) Mean Corpuscular Hemoglobin 29.7 PG (27.0-31.0) 29.9 PG (27.0-31.0) Mean Corpuscular Hemoglobin Concent 32.6 G/DL (32.0-36.0) 32.8 G/DL (32.0-36.0) Red Cell Distribution Width 12.7 % (11.6-14.8) 13.2 % (11.6-14.8) Platelet Count 151 K/UL (150-450) 138 K/UL (150-450) Mean Platelet Volume 6.3 FL (6.5-10.1) 6.5 FL (6.5-10.1) Neutrophils (%) (Auto) 83.9 % (45.0-75.0) % (45.0-75.0) Lymphocytes (%) (Auto) 8.9 % (20.0-45.0) % (20.0-45.0) Monocytes (%) (Auto) 5.0 % (1.0-10.0) % (1.0-10.0) Eosinophils (%) (Auto) 1.4 % (0.0-3.0) % (0.0-3.0) Basophils (%) (Auto) 0.6 % (0.0-2.0) % (0.0-2.0) Sodium Level 136 MMOL/L (136-145) 137 MMOL/L (136-145) Potassium Level 4.1 MMOL/L (3.5-5.1) 4.0 MMOL/L (3.5-5.1) Chloride Level 103 MMOL/L (98-107) 104 MMOL/L (98-107) Carbon Dioxide Level 26 MMOL/L (21-32) 28 MMOL/L (21-32) Anion Gap 7 mmol/L (5-15) 5 mmol/L (5-15) Blood Urea Nitrogen 52 mg/dL (7-18) 42 mg/dL (7-18) Creatinine 3.2 MG/DL (0.55-1.30) 2.9 MG/DL (0.55-1.30) Estimat Glomerular Filtration Rate 19.0 mL/min (>60) 21.3 mL/min (>60) Glucose Level 193 MG/DL (74-106) 76 MG/DL (74-106) Calcium Level 7.9 MG/DL (8.5-10.1) 7.6 MG/DL (8.5-10.1) Phosphorus Level 3.5 MG/DL (2.5-4.9) 3.1 MG/DL (2.5-4.9) Total Bilirubin 0.3 MG/DL (0.2-1.0) 0.4 MG/DL (0.2-1.0) Aspartate Amino Transf (AST/SGOT) 19 U/L (15-37) 19 U/L (15-37) Alanine Aminotransferase (ALT/SGPT) 33 U/L (12-78) 28 U/L (12-78) Alkaline Phosphatase 81 U/L (46-116) 73 U/L (46-116) C-Reactive Protein, Quantitative 1.8 mg/dL (0.00-0.90) 2.0 mg/dL (0.00-0.90) Pro-B-Type Natriuretic Peptide 934 pg/mL (0-125) 1255 pg/mL (0-125) Total Protein 5.0 G/DL (6.4-8.2) 4.8 G/DL (6.4-8.2) Albumin 1.7 G/DL (3.4-5.0) 1.6 G/DL (3.4-5.0) Globulin 3.3 g/dL 3.2 g/dL Albumin/Globulin Ratio 0.5 (1.0-2.7) 0.5 (1.0-2.7) POC Whole Blood Glucose 257 MG/DL (74-106) 85 MG/DL (74-106) Differential Total Cells Counted 100 Neutrophils % (Manual) 82 % (45-75) Lymphocytes % (Manual) 11 % (20-45) Monocytes % (Manual) 7 % (1-10) Eosinophils % (Manual) 0 % (0-3) Basophils % (Manual) 0 % (0-2) Band Neutrophils 0 % (0-8) Platelet Estimate Decreased Platelet Morphology Normal Hypochromasia 1+ Uric Acid 4.4 MG/DL (2.6-7.2) Magnesium Level 1.9 MG/DL (1.8-2.4) Test 11/16/20 11:43 11/16/20 16:40 11/16/20 21:38 11/17/20 05:53 POC Whole Blood Glucose 223 MG/DL (74-106) 124 MG/DL (74-106) 161 MG/DL (74-106) 87 MG/DL (74-106) Test 11/17/20 11:41 POC Whole Blood Glucose 157 MG/DL (74-106) Height (Feet): 5 Height (Inches): 5.00 Weight (Pounds): 150 Objective Physical Exam: Vitals: reviewed General: NAD HEENT: nc, at Neck: supple Chest: clear breath sounds bilaterally Cardiovascular: RRR, no s3, s4 Abdomen: soft, nontender, nd Extremities: no cce, normal range of motion Neuro: alert and oriented Montrell Weaver MD Nov 18, 2020 07:17
--- NOTE | 2020-11-18 07:34 | NUR ---
NURSE HAND-OFF REPORT: Important Events on Shift:Pt continued scheduled medications and received prn haldol Patient Status: Stable Diet: Renal Puree Pending Orders: Pending Results/Labs:AM Labs Pending notification: Latest Vital Signs: Temperature 99.1 , Pulse 71 , B/P 120 /60 , Respiratory Rate 14 , O2 SAT 93 , Nasal Cannula, O2 Flow Rate 2.0 . Vital Sign Comment: VSS EKG Rhythm: Sinus Rhythm Rhythm change?: N Notified?: Amari MCQUEEN MD Response: Message left await call Latest Bhat Fall Score: 50 Fall Risk: High Risk Safety Measures: Call light Within Reach, Bed Alarm Zone 1, Side Rails Side Rails x3, Bed position Low and Locked. Fall Precautions: Yellow Socks Yellow Gown Report given to ARPITA Mendoza.
[2020-11-18 08:00] VITALS: BP 116/79
[2020-11-18] MEDS: Docusate 100mg cap ORAL SCH ×2 (08:23→17:23)
[2020-11-18] MEDS: Amiodarone 200mg tab ORAL SCH (08:23)
[2020-11-18] MEDS: methIMAzole 10mg tab ORAL SCH (08:23)
[2020-11-18] MEDS: Tamsulosin 0.4mg cap ORAL SCH ×2 (08:23→17:23)
[2020-11-18] MEDS: Vitamin D 1000 units Tab ORAL SCH (08:24)
[2020-11-18] MEDS: Allopurinol 100mg Tab ORAL SCH (08:25)
[2020-11-18] MEDS: dilTIAZem HCl 90mg tab ORAL SCH ×2 (08:26→17:17)
[2020-11-18 08:27] LABS: BASOPHILS % (AUTO) 0.3 % (0.0-2.0); EOSINOPHILS % (AUTO) 2.2 % (0.0-3.0); HEMOGLOBIN 9.1 G/DL (14.2-18.0); LYMPHOCYTES % (AUTO) 11.4 % (20.0-45.0); MEAN CORPUSCULAR VOLUME 94 FL (80-99); MONOCYTES % (AUTO) 5.4 % (1.0-10.0); NEUTROPHILS % (AUTO) 80.7 % (45.0-75.0); PLATELET COUNT 120 K/UL (150-450); RED BLOOD COUNT 2.99 M/UL (4.70-6.10); RED CELL DISTRIBUTION WIDTH 13.8 % (11.6-14.8); WHITE BLOOD COUNT 7.6 K/UL (4.8-10.8)
[2020-11-18] MEDS: Enoxaparin 30mg Inj SUBQ SCH (08:27)
[2020-11-18] MEDS: Metoprolol Tartrate 50mg tab ORAL SCH ×2 (08:27→22:16)
[2020-11-18 09:17] LABS: ALBUMIN 1.9 G/DL (3.4-5.0); ALBUMIN/GLOBULIN RATIO 0.5 (1.0-2.7); BILIRUBIN,TOTAL 0.3 MG/DL (0.2-1.0); CALCIUM 8.2 MG/DL (8.5-10.1); POTASSIUM 4.4 MMOL/L (3.5-5.1)
--- NOTE | 2020-11-18 09:30 | NUR ---
NURSE NOTES: Spoke to primary MD about D/C plan today to [facility] with PT/OT. Daughter Ashley Melendez aware of possible D/C to SNF
--- NOTE | 2020-11-18 09:54 | Pulmonology Progress Note ---
Subjective ROS Limited/Unobtainable: Yes Interval Events: none major reported per nursing Constitutional: Denies: fever Gastrointestinal/Abdominal: Reports: diarrhea - C. diff negative Psychiatric: Reports: other - on restraint Allergies: Coded Allergies: No Known Allergies (Unverified , 10/31/20) Objective Last 24 Hour Vital Signs Date Time Temp Pulse Resp B/P (MAP) Pulse Ox O2 Delivery O2 Flow Rate FiO2 11/18/20 09:00 Room Air 11/18/20 08:27 75 120/60 11/18/20 08:26 75 120/60 11/18/20 08:00 98.6 81 22 116/79 (91) 100 71 71 11/18/20 08:00 77 11/18/20 04:00 99.1 71 14 120/60 (80) 93 71 71 11/18/20 04:00 71 11/18/20 00:00 97.9 72 18 131/59 (83) 93 72 72 11/18/20 00:00 69 11/17/20 21:00 Room Air 11/17/20 20:42 69 120/56 11/17/20 20:00 70 11/17/20 20:00 98.2 69 14 120/56 (77) 99 69 69 11/17/20 18:35 73 112/73 11/17/20 16:00 98.2 69 20 112/73 (86) 99 69 69 11/17/20 16:00 59 11/17/20 12:00 97.1 62 17 118/52 (74) 99 11/17/20 12:00 59 Intake and Output 11/17/20 11/18/20 19:00 07:00 Intake Total 840 ml 720 ml Balance 840 ml 720 ml Intake Oral 840 ml 720 ml # Voids 2 # Bowel Movements 1 Objective now on room air General Appearance: WD/WN, no acute distress HEENT: atraumatic Respiratory: chest wall non-tender Cardiovascular: normal rate, regular rhythm Abdomen: soft, non tender Laboratory Tests 11/17/20 11:41: POC Whole Blood Glucose 157H 11/18/20 05:00: White Blood Count 7.6, Red Blood Count 2.99L, Hemoglobin 9.1L, Hematocrit 28.0L, Mean Corpuscular Volume 94, Mean Corpuscular Hemoglobin 30.5, Mean Corpuscular Hemoglobin Concent 32.6, Red Cell Distribution Width 13.8, Platelet Count 120L, Mean Platelet Volume 5.8L, Neutrophils (%) (Auto) 80.7H, Lymphocytes (%) (Auto) 11.4L, Monocytes (%) (Auto) 5.4, Eosinophils (%) (Auto) 2.2, Basophils (%) (Auto) 0.3, Sodium Level 137, Potassium Level 4.4, Chloride Level 103, Carbon Dioxide Level 23, Anion Gap 11, Blood Urea Nitrogen 35H, Creatinine 3.0H, Estimat Glomerular Filtration Rate 20.4, Glucose Level 154H, Calcium Level 8.2L, Phosphorus Level [Pending], Total Bilirubin 0.3, Aspartate Amino Transf (AST/SGOT) 24, Alanine Aminotransferase (ALT/SGPT) 24, Alkaline Phosphatase 94, C-Reactive Protein, Quantitative [Pending], Pro-B-Type Natriuretic Peptide [Pending], Total Protein 5.8L, Albumin 1.9L, Globulin 3.9, Albumin/Globulin Ratio 0.5L Current Medications Medications (Trade) Dose Ordered Sig/Manasa Route PRN Reason Start Time Stop Time Status Last Admin Dose Admin Acetaminophen (Tylenol) 500 mg Q4H PRN ORAL For Pain 11/01/20 01:00 12/01/20 00:59 11/01/20 18:50 Acetaminophen (Tylenol) 650 mg Q4H PRN RECTAL Temp >100.5 11/01/20 21:30 12/01/20 21:29 Allopurinol (Zyloprim) 200 mg DAILY ORAL 11/01/20 16:00 12/01/20 15:59 11/18/20 08:25 Amiodarone HCl (Cordarone) 200 mg DAILY ORAL 11/10/20 09:00 02/08/21 08:59 11/18/20 08:23 Chlorhexidine Gluconate (María Elena-Hex 2%) 1 applic DAILY@2000 TOPIC 11/04/20 20:00 02/02/21 19:59 11/16/20 21:34 Clonidine HCl (Catapres Tab) 0.1 mg Q4H PRN ORAL bp over 160 syst 10/31/20 17:45 01/29/21 17:44 11/01/20 09:20 Dextrose (Dextrose 50%) 25 ml Q30M PRN IV Hypoglycemia 11/01/20 07:15 01/30/21 07:14 Dextrose (Dextrose 50%) 50 ml Q30M PRN IV Hypoglycemia 11/01/20 07:15 01/30/21 07:14 Diltiazem HCl (Cardizem Tab) 90 mg BID ORAL 11/07/20 10:15 12/02/20 17:59 11/18/20 08:26 Docusate Sodium (Colace) 100 mg TWICE A DAY ORAL 10/31/20 18:00 11/30/20 17:59 11/18/20 08:23 Enoxaparin Sodium (Lovenox) 30 mg DAILY SUBQ 11/16/20 09:00 02/14/21 08:59 11/18/20 08:27 Haloperidol Lactate (Haldol) 5 mg Q6H PRN IM Agitation 11/06/20 21:30 12/21/20 21:29 11/18/20 00:30 Insulin Aspart (NovoLOG) BEFORE MEALS AND HS SUBQ 11/01/20 11:30 01/30/21 11:29 11/18/20 05:35 Insulin Aspart (NovoLOG) 8 units NOVOTIAC SUBQ 11/16/20 06:30 01/30/21 11:49 11/18/20 05:36 Insulin Detemir (Levemir) 6 units QHS SUBQ 11/17/20 21:00 01/30/21 08:59 11/17/20 20:53 Methimazole (Tapazole) 10 mg DAILY ORAL 11/03/20 09:00 12/03/20 08:59 11/18/20 08:23 Metoprolol Tartrate (Lopressor) 50 mg Q12HR ORAL 11/01/20 21:00 01/30/21 20:59 11/18/20 08:27 Ondansetron HCl (Zofran) 4 mg Q6H PRN IVP Nausea & Vomiting 11/07/20 16:30 12/07/20 16:29 11/07/20 17:28 Pantoprazole (Protonix) 40 mg BID ORAL 10/31/20 18:00 11/30/20 17:44 11/18/20 08:22 Sitagliptin Phosphate (Januvia) 25 mg ACBREAKFAST ORAL 11/06/20 06:30 12/06/20 06:29 11/18/20 05:32 Tamsulosin HCl (Flomax) 0.4 mg BID ORAL 11/03/20 12:00 12/03/20 11:59 11/18/20 08:23 Vitamin D (Vitamin D) 5,000 unit DAILY ORAL 11/13/20 09:00 12/13/20 08:59 11/18/20 08:24 Assessment/Plan Assessment/Plan 1. Non-ST elevation myocardial infarction. - cardiology following 2. Diabetic ketoacidosis - seen by endocrinology - continue fluids - on insulin 3. Atrial flutter with rapid ventricular response. - Continue metoprolol 50 mg b.i.d. 4. COVID positive pneumonia. - s/p Decadron (11/03-11/12) - Supplemental O2 - saturating at 94% on RA; weaned off oxygen - CXR 11/04 developing b/l infilitrates 5. Renal failure - nephrology following - pt pulled out femoral HD cath, s/p new IJ - removal of HD line once stable 6. Accelerated hypertension. 7. Hyperthyroidism - Dr. Tamez following 8. Diarrhea - C. diff negative 9. DVT ppx - s/p Eliquis - We will restart low dose Lovenox given eGFR <30 - ok to continue if plt >50K per heme onc 10. Anemia - s/p transfusion (11/16) Medically stable for discharge from pulmonary standpoint Awaiting PT/OT eval The care for this patient was discussed with my supervising physician Time spent for this case was approximately 31 minutes Singh Buchanan Nov 18, 2020 09:54
[2020-11-18 10:14] LABS: PHOSPHORUS 3.7 MG/DL (2.5-4.9)
--- NOTE | 2020-11-18 10:23 | Surgery Progress Note ---
Surgery Progress Note Subjective Procedure Performed Right femoral temporary hemodialysis catheter insertion Additional Comments afebrile, HD stable renal function not stable hold on removal of line Objective Last 24 Hour Vital Signs Date Time Temp Pulse Resp B/P (MAP) Pulse Ox O2 Delivery O2 Flow Rate FiO2 11/18/20 09:00 Room Air 11/18/20 08:27 75 120/60 11/18/20 08:26 75 120/60 11/18/20 08:00 98.6 81 22 116/79 (91) 100 71 71 11/18/20 08:00 77 11/18/20 04:00 99.1 71 14 120/60 (80) 93 71 71 11/18/20 04:00 71 11/18/20 00:00 97.9 72 18 131/59 (83) 93 72 72 11/18/20 00:00 69 11/17/20 21:00 Room Air 11/17/20 20:42 69 120/56 11/17/20 20:00 70 11/17/20 20:00 98.2 69 14 120/56 (77) 99 69 69 11/17/20 18:35 73 112/73 11/17/20 16:00 98.2 69 20 112/73 (86) 99 69 69 11/17/20 16:00 59 11/17/20 12:00 97.1 62 17 118/52 (74) 99 11/17/20 12:00 59 I&O Intake and Output 11/17/20 11/18/20 19:00 07:00 Intake Total 840 ml 720 ml Balance 840 ml 720 ml Intake Oral 840 ml 720 ml # Voids 2 # Bowel Movements 1 Dressing: dry Cardiovascular: RSR Respiratory: decreased breath sounds Abdomen: soft, flat, non-tender, present bowel sounds Extremities: edema, no tenderness, no cyanosis Laboratory Tests Test 11/17/20 11:41 11/18/20 05:00 POC Whole Blood Glucose 157 MG/DL (74-106) H White Blood Count 7.6 K/UL (4.8-10.8) Red Blood Count 2.99 M/UL (4.70-6.10) L Hemoglobin 9.1 G/DL (14.2-18.0) L Hematocrit 28.0 % (42.0-52.0) L Mean Corpuscular Volume 94 FL (80-99) Mean Corpuscular Hemoglobin 30.5 PG (27.0-31.0) Mean Corpuscular Hemoglobin Concent 32.6 G/DL (32.0-36.0) Red Cell Distribution Width 13.8 % (11.6-14.8) Platelet Count 120 K/UL (150-450) L Mean Platelet Volume 5.8 FL (6.5-10.1) L Neutrophils (%) (Auto) 80.7 % (45.0-75.0) H Lymphocytes (%) (Auto) 11.4 % (20.0-45.0) L Monocytes (%) (Auto) 5.4 % (1.0-10.0) Eosinophils (%) (Auto) 2.2 % (0.0-3.0) Basophils (%) (Auto) 0.3 % (0.0-2.0) Sodium Level 137 MMOL/L (136-145) Potassium Level 4.4 MMOL/L (3.5-5.1) Chloride Level 103 MMOL/L (98-107) Carbon Dioxide Level 23 MMOL/L (21-32) Anion Gap 11 mmol/L (5-15) Blood Urea Nitrogen 35 mg/dL (7-18) H Creatinine 3.0 MG/DL (0.55-1.30) H Estimat Glomerular Filtration Rate 20.4 mL/min (>60) Glucose Level 154 MG/DL (74-106) H Calcium Level 8.2 MG/DL (8.5-10.1) L Phosphorus Level 3.7 MG/DL (2.5-4.9) Total Bilirubin 0.3 MG/DL (0.2-1.0) Aspartate Amino Transf (AST/SGOT) 24 U/L (15-37) Alanine Aminotransferase (ALT/SGPT) 24 U/L (12-78) Alkaline Phosphatase 94 U/L (46-116) C-Reactive Protein, Quantitative 3.3 mg/dL (0.00-0.90) H Pro-B-Type Natriuretic Peptide 1013 pg/mL (0-125) H Total Protein 5.8 G/DL (6.4-8.2) L Albumin 1.9 G/DL (3.4-5.0) L Globulin 3.9 g/dL Albumin/Globulin Ratio 0.5 (1.0-2.7) L Plan Problems: (1) DKA (diabetic ketoacidoses) (2) Renal failure (ARF), acute on chronic Assessment & Plan: s/p temp HD line recovering renal function not stable hold on removal of line (3) COVID-19 virus infection Assessment & Plan: 75-year-old male Covid positive renal insufficiency recently had temporary dialysis catheter placement develop leukocytosis soon after. Vitals noted. Exam stable. Catheter was evaluated no acute active inflammatory or infectious process identified. Catheter is clean dry intact. The dressings are not saturated. There is no active bleeding identified. There is no signs of active infection. Leukocytosis anterior collated to medications currently given for COVID-19 infection. Will monitor closely to ensure no active development of infection or related to catheter placement. Thank you for let me participate patient's care will follow with recommendations trend leukocytosis cont dressings cont care plan as noted cont HD trend renal function (4) Rhabdomyolysis Assessment & Plan: improved resuscitated no n/v tolerating diet labs improved likely secondary to down DAILY ESTIMATED NEEDS: Needs based on DM, pulmonary 68.4kg 25-30 kcals/kg 9402-0173 total kcals 1-1.5 g protein/kg 68-102 g total protein 25-30 mL/kg 1549-1284 total fluid mLs NUTRITION DIAGNOSIS: Altered nutrition related lab values r/t DKA as evidenced by Uglu 4+ on adm, small acetone detected, BG 1087 upon adm-> now improved, A1C 8.1. CURRENT DIET: Renal/ pureed moist+ Ensure TID PO DIET RECOMMENDATIONS: RENAL/ CCHO MED diet (texture as tolerated) ADDITIONAL RECOMMENDATIONS: 1) Monitor renal fxn and lytes, continuity of HD last HD 11/08, K, phos, mag wnl 2) Monitor BGs closely for hypoglycemia w/ insulin regimen 3) Maintain calibrated bed scale wts 4) Nephrovite x 1 5) Monitor for continued improved intake - rec to decrease HPN to QD at this time. Rec Nepro (5) Diabetes mellitus out of control (6) Abnormal thyroid blood test (7) NSTEMI (non-ST elevated myocardial infarction) Norberto Steele Nov 18, 2020 10:23
--- NOTE | 2020-11-18 10:23 | NUR ---
*-*DISCHARGE PLANNING*-* PATIENT HAS BEEN REFERRED TO: [facility] P: [phone]
--- NOTE | 2020-11-18 10:55 | NUR ---
PT EVALUATION NOTE Patient seen for initial evaluation and treatment initiated. Patient presents with generalized weakness and decreased balance which impairs patient's ability to perform mobility skills safely. Patient requires min/mod assist for bed mobility and mod assist for transfers. Patient unsteady in standing, able to perform stand-step pivot to bedside commode however unable to ambulate at this time. Patient is impulsive and is a high fall risk. Patient will benefit from skilled inpatient PT intervention to increase strength and postural stability for improved level of functional mobility and safety, and to decrease fall risk. Recommend discharge to SNF for continued rehab once medically cleared by MD. DME needs to be determined based on patient's progress. Addendum: 11/18/20 at 1236 by DANDRE SELF PT Amended: Links added.
[2020-11-18 12:00] VITALS: BP 130/59
--- NOTE | 2020-11-18 12:15 | Infectious Diseases Prog Note ---
Assessment/Plan Assessment/Plan A; COVID19 pneumonia Hypoxemia Acute renal failure improving Rhabdomyolysis Diarrhea, C. difficile negative DKA Hyperthyroidism Anemia Leukocytosis improving P; Finished Dexamethasone course Observe off antibiotic May discontinue isolation Subjective ROS Limited/Unobtainable: Yes Neurologic: Reports: other - agitated on restraint Allergies: Coded Allergies: No Known Allergies (Unverified , 10/31/20) Objective Last 24 Hour Vital Signs Date Time Temp Pulse Resp B/P (MAP) Pulse Ox O2 Delivery O2 Flow Rate FiO2 11/18/20 09:00 Room Air 11/18/20 08:27 75 120/60 11/18/20 08:26 75 120/60 11/18/20 08:00 98.6 81 22 116/79 (91) 100 71 71 11/18/20 08:00 77 11/18/20 04:00 99.1 71 14 120/60 (80) 93 71 71 11/18/20 04:00 71 11/18/20 00:00 97.9 72 18 131/59 (83) 93 72 72 11/18/20 00:00 69 11/17/20 21:00 Room Air 11/17/20 20:42 69 120/56 11/17/20 20:00 70 11/17/20 20:00 98.2 69 14 120/56 (77) 99 69 69 11/17/20 18:35 73 112/73 11/17/20 16:00 98.2 69 20 112/73 (86) 99 69 69 11/17/20 16:00 59 Height (Feet): 5 Height (Inches): 5.00 Weight (Pounds): 150 General Appearance: no acute distress HEENT: mucous membranes moist Respiratory/Chest: no respiratory distress Cardiovascular: normal rate Abdomen: soft, non tender Extremities: no edema Neurologic/Psychiatric: disoriented Laboratory Tests Test 11/18/20 05:00 White Blood Count 7.6 K/UL (4.8-10.8) Red Blood Count 2.99 M/UL (4.70-6.10) L Hemoglobin 9.1 G/DL (14.2-18.0) L Hematocrit 28.0 % (42.0-52.0) L Mean Corpuscular Volume 94 FL (80-99) Mean Corpuscular Hemoglobin 30.5 PG (27.0-31.0) Mean Corpuscular Hemoglobin Concent 32.6 G/DL (32.0-36.0) Red Cell Distribution Width 13.8 % (11.6-14.8) Platelet Count 120 K/UL (150-450) L Mean Platelet Volume 5.8 FL (6.5-10.1) L Neutrophils (%) (Auto) 80.7 % (45.0-75.0) H Lymphocytes (%) (Auto) 11.4 % (20.0-45.0) L Monocytes (%) (Auto) 5.4 % (1.0-10.0) Eosinophils (%) (Auto) 2.2 % (0.0-3.0) Basophils (%) (Auto) 0.3 % (0.0-2.0) Sodium Level 137 MMOL/L (136-145) Potassium Level 4.4 MMOL/L (3.5-5.1) Chloride Level 103 MMOL/L (98-107) Carbon Dioxide Level 23 MMOL/L (21-32) Anion Gap 11 mmol/L (5-15) Blood Urea Nitrogen 35 mg/dL (7-18) H Creatinine 3.0 MG/DL (0.55-1.30) H Estimat Glomerular Filtration Rate 20.4 mL/min (>60) Glucose Level 154 MG/DL (74-106) H Calcium Level 8.2 MG/DL (8.5-10.1) L Phosphorus Level 3.7 MG/DL (2.5-4.9) Total Bilirubin 0.3 MG/DL (0.2-1.0) Aspartate Amino Transf (AST/SGOT) 24 U/L (15-37) Alanine Aminotransferase (ALT/SGPT) 24 U/L (12-78) Alkaline Phosphatase 94 U/L (46-116) C-Reactive Protein, Quantitative 3.3 mg/dL (0.00-0.90) H Pro-B-Type Natriuretic Peptide 1013 pg/mL (0-125) H Total Protein 5.8 G/DL (6.4-8.2) L Albumin 1.9 G/DL (3.4-5.0) L Globulin 3.9 g/dL Albumin/Globulin Ratio 0.5 (1.0-2.7) L Current Medications Medications (Trade) Dose Ordered Sig/Manasa Route PRN Reason Start Time Stop Time Status Last Admin Dose Admin Acetaminophen (Tylenol) 500 mg Q4H PRN ORAL For Pain 11/01/20 01:00 12/01/20 00:59 11/01/20 18:50 Acetaminophen (Tylenol) 650 mg Q4H PRN RECTAL Temp >100.5 11/01/20 21:30 12/01/20 21:29 Allopurinol (Zyloprim) 200 mg DAILY ORAL 11/01/20 16:00 12/01/20 15:59 11/18/20 08:25 Amiodarone HCl (Cordarone) 200 mg DAILY ORAL 11/10/20 09:00 02/08/21 08:59 11/18/20 08:23 Chlorhexidine Gluconate (María Elena-Hex 2%) 1 applic DAILY@1999 TOPIC 11/04/20 20:00 02/02/21 19:59 11/16/20 21:34 Clonidine HCl (Catapres Tab) 0.1 mg Q4H PRN ORAL bp over 160 syst 10/31/20 17:45 01/29/21 17:44 11/01/20 09:20 Dextrose (Dextrose 50%) 25 ml Q30M PRN IV Hypoglycemia 11/01/20 07:15 01/30/21 07:14 Dextrose (Dextrose 50%) 50 ml Q30M PRN IV Hypoglycemia 11/01/20 07:15 01/30/21 07:14 Diltiazem HCl (Cardizem Tab) 90 mg BID ORAL 11/07/20 10:15 12/02/20 17:59 11/18/20 08:26 Docusate Sodium (Colace) 100 mg TWICE A DAY ORAL 10/31/20 18:00 11/30/20 17:59 11/18/20 08:23 Enoxaparin Sodium (Lovenox) 30 mg DAILY SUBQ 11/16/20 09:00 02/14/21 08:59 11/18/20 08:27 Haloperidol Lactate (Haldol) 5 mg Q6H PRN IM Agitation 11/06/20 21:30 12/21/20 21:29 11/18/20 11:02 Insulin Aspart (NovoLOG) BEFORE MEALS AND HS SUBQ 11/01/20 11:30 01/30/21 11:29 11/18/20 05:35 Insulin Aspart (NovoLOG) 8 units NOVOTIAC SUBQ 11/16/20 06:30 01/30/21 11:49 11/18/20 05:36 Insulin Detemir (Levemir) 6 units QHS SUBQ 11/17/20 21:00 01/30/21 08:59 11/17/20 20:53 Methimazole (Tapazole) 10 mg DAILY ORAL 11/03/20 09:00 12/03/20 08:59 11/18/20 08:23 Metoprolol Tartrate (Lopressor) 50 mg Q12HR ORAL 11/01/20 21:00 01/30/21 20:59 11/18/20 08:27 Ondansetron HCl (Zofran) 4 mg Q6H PRN IVP Nausea & Vomiting 11/07/20 16:30 12/07/20 16:29 11/07/20 17:28 Pantoprazole (Protonix) 40 mg BID ORAL 10/31/20 18:00 11/30/20 17:44 11/18/20 08:22 Sitagliptin Phosphate (Januvia) 25 mg ACBREAKFAST ORAL 11/06/20 06:30 12/06/20 06:29 11/18/20 05:32 Tamsulosin HCl (Flomax) 0.4 mg BID ORAL 11/03/20 12:00 12/03/20 11:59 11/18/20 08:23 Vitamin D (Vitamin D) 5,000 unit DAILY ORAL 11/13/20 09:00 12/13/20 08:59 11/18/20 08:24 Reji Connelly MD Nov 18, 2020 12:15
--- NOTE | 2020-11-18 12:20 | NUR ---
NURSE NOTES: COVID ISOLATION HAS BEEN D/CD PER DR. LUGO
--- NOTE | 2020-11-18 12:49 | NUR ---
DISCHARGE PLANNING SPOKE WITH [facility] AT [facility]. 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
--- NOTE | 2020-11-18 13:16 | NUR ---
*-*DISCHARGE PLANNING*-* PATIENT HAS BEEN REFERRED TO: ZAHIRA MARINO P: [phone] S/W K[facility], NO BEDS AVAILABLE.
--- NOTE | 2020-11-18 13:48 | Cardiac Electrophysiology PN ---
Assessment/Plan Assessment/Plan 1. NSTEMI with troponin of 0.25 and 0.35 in this patient with DKA as well as atrial flutter with rapid ventricular response. On metoprolol 50 mg b.i.d. EF 65% 2. Atrial flutter with RVR On metoprolol 50 mg bid, Cardizem 90 bid and Amiodarone 200 po daily Off Eliquis for hematuria 3. Diabetic ketoacidosis with glucose of more than 1000. 4. Hypertension. On Lopressor 50 bid and Cardizem 90 bid 5. COVID positive pneumonia. 6. Acute Renal failure in the setting of total CK of 1900, maybe rhabdomyolysis- induced renal failure. On HD via RFV Yazan by Dr. Buckley. RFV Yazan pulled out by patient. S/P New RIJ Yazan on 11/11/20 Yazan removed as no more need for HD 7. Anemia. S/P PRBC 11/16 DW RN Subjective Subjective Pulled out his RFV Yazan catheter after HD 11/08/20. S/P new Yazan catheter placement 11/11/20. In restraints in covid isolation. On RA In SR on Amio, Cardizem and metoprolol. Off Eliquis due to hematuria R IJ HD catheter removed yesterday S/P PRBC for Hb 7.7 Objective Last 24 Hour Vital Signs Date Time Temp Pulse Resp B/P (MAP) Pulse Ox O2 Delivery O2 Flow Rate FiO2 11/18/20 12:00 63 11/18/20 12:00 98.2 68 20 130/59 (82) 95 68 68 11/18/20 09:00 Room Air 11/18/20 08:27 75 120/60 11/18/20 08:26 75 120/60 11/18/20 08:00 98.6 81 22 116/79 (91) 100 71 71 11/18/20 08:00 77 11/18/20 04:00 99.1 71 14 120/60 (80) 93 71 71 11/18/20 04:00 71 11/18/20 00:00 97.9 72 18 131/59 (83) 93 72 72 11/18/20 00:00 69 11/17/20 21:00 Room Air 11/17/20 20:42 69 120/56 11/17/20 20:00 70 11/17/20 20:00 98.2 69 14 120/56 (77) 99 69 69 11/17/20 18:35 73 112/73 11/17/20 16:00 98.2 69 20 112/73 (86) 99 69 69 11/17/20 16:00 59 Intake and Output 11/17/20 11/18/20 19:00 07:00 Intake Total 840 ml 720 ml Balance 840 ml 720 ml Intake Oral 840 ml 720 ml # Voids 2 # Bowel Movements 1 Laboratory Tests Test 11/18/20 05:00 White Blood Count 7.6 K/UL (4.8-10.8) Red Blood Count 2.99 M/UL (4.70-6.10) L Hemoglobin 9.1 G/DL (14.2-18.0) L Hematocrit 28.0 % (42.0-52.0) L Mean Corpuscular Volume 94 FL (80-99) Mean Corpuscular Hemoglobin 30.5 PG (27.0-31.0) Mean Corpuscular Hemoglobin Concent 32.6 G/DL (32.0-36.0) Red Cell Distribution Width 13.8 % (11.6-14.8) Platelet Count 120 K/UL (150-450) L Mean Platelet Volume 5.8 FL (6.5-10.1) L Neutrophils (%) (Auto) 80.7 % (45.0-75.0) H Lymphocytes (%) (Auto) 11.4 % (20.0-45.0) L Monocytes (%) (Auto) 5.4 % (1.0-10.0) Eosinophils (%) (Auto) 2.2 % (0.0-3.0) Basophils (%) (Auto) 0.3 % (0.0-2.0) Sodium Level 137 MMOL/L (136-145) Potassium Level 4.4 MMOL/L (3.5-5.1) Chloride Level 103 MMOL/L (98-107) Carbon Dioxide Level 23 MMOL/L (21-32) Anion Gap 11 mmol/L (5-15) Blood Urea Nitrogen 35 mg/dL (7-18) H Creatinine 3.0 MG/DL (0.55-1.30) H Estimat Glomerular Filtration Rate 20.4 mL/min (>60) Glucose Level 154 MG/DL (74-106) H Calcium Level 8.2 MG/DL (8.5-10.1) L Phosphorus Level 3.7 MG/DL (2.5-4.9) Total Bilirubin 0.3 MG/DL (0.2-1.0) Aspartate Amino Transf (AST/SGOT) 24 U/L (15-37) Alanine Aminotransferase (ALT/SGPT) 24 U/L (12-78) Alkaline Phosphatase 94 U/L (46-116) C-Reactive Protein, Quantitative 3.3 mg/dL (0.00-0.90) H Pro-B-Type Natriuretic Peptide 1013 pg/mL (0-125) H Total Protein 5.8 G/DL (6.4-8.2) L Albumin 1.9 G/DL (3.4-5.0) L Globulin 3.9 g/dL Albumin/Globulin Ratio 0.5 (1.0-2.7) L Objective HEAD AND NECK: No JVD. LUNGS: Clear. CARDIOVASCULAR: Shows regular S1 and S2 with no gallop. ABDOMEN: Soft. EXTREMITIES: Right IJ Yazan is removed. No pitting edema. Sivakumar Escalante MD Nov 18, 2020 13:48
--- NOTE | 2020-11-18 14:28 | Nephrology Progress Note ---
Assessment/Plan Problem List: (1) Renal failure (ARF), acute on chronic (2) DKA (diabetic ketoacidoses) (3) COVID-19 virus infection (4) Rhabdomyolysis (5) Abnormal thyroid blood test (6) NSTEMI (non-ST elevated myocardial infarction) Assessment 75-year-old [place] male Covid positive Acute renal failure, most likely superimposed on chronic kidney disease Diabetes mellitus, presents with severe hyperglycemia and DKA History of hypertension Plan November 18: Serum creatinine 3. No need for dialysis. Remains full code. Continue as is. November 17: No labs drawn today. No dialysis since November 08. Plan to remove all of dialysis catheter. Check labs tomorrow if in-house. November 16: Labs reviewed. Serum creatinine lower 2.9. No need for dialysis catheter anymore. Continue as is. November 15: Labs reviewed. Serum creatinine unchanged. Calculated creatinine clearance 19 mL/h. No dialysis needed at this time. November 14: Lab reviewed. Serum creatinine 3.2 unchanged. No need for dialysis. Continue per consultants. November 13: Lab reviewed. Serum creatinine 3.2. No need for dialysis today. Continue to monitor renal parameters. Continue per consultants. November 12: Labs reviewed. Serum creatinine 3. No dialysis needed today. Continue to monitor renal parameters. November 11: Labs reviewed. Serum creatinine higher. Due for placement of a Nontunneled catheter today. We will schedule dialysis as needed. Patient's leukocytosis gradually improving. November 10: Lab reviewed. Serum creatinine rising. We will proceed with placement of a nontunneled catheter tomorrow and dialysis. Patient has leukocytosis at this time. Continue per consultants. November 09: Labs reviewed. Patient was dialyzed yesterday. Patient pulled out the dialysis catheter last night. Renal parameters stable. Continue to monitor and if dialysis needed to place a new temporary catheter. Per orders. November 08: Labs reviewed. Serum creatinine is plateauing. Due for dialysis today. We will continue to monitor renal parameters and dialysis as needed. November 07: Labs reviewed. Serum creatinine rising. IV fluid discontinued. Dialysis for tomorrow. Continue per consultants. November 06: Labs reviewed. Blood pressure stable. Medication list reviewed. Dialysis as needed. November 05: Due for dialysis today. Labs are reviewed. Blood pressure is stable. Continue to monitor renal parameters. November 04: Patient was dialyzed yesterday. 1 L ultrafiltrated. Labs reviewed. Renal parameters stable. Will attempt dialysis again tomorrow. Medication list reviewed. November 03: Labs reviewed. Serum creatinine rising. Patient has hematuria. Patient on Eliquis. Will arrange for placement of dialysis catheter and attempt to dialyze. Will start Flomax since the patient could not have a Anand catheter. Continue to monitor renal parameters. Continue per consultants. Discussed with RN. Consent for placement of nontunneled catheter ordered. Patient is also on Tapazole for high thyroid hormone. CPK is lowering. November 02: Labs reviewed. Serum creatinine up to 4. In S DU now. On Cardizem drip. Measured creatinine clearance . Patient may lead towards dialysis. Continue to monitor renal parameters. November 01: Renal parameters improving. Blood sugar is improving. Continue to monitor electrolytes renal parameters and urine output. Aim to control blood sugar and blood pressure. Avoid nephrotoxic's. Monitor CPK as it is elevated. Previously: Anand catheter Blood sugar control Slow hydration Monitor renal parameters Kidney ultrasound no hydronephrosis 2D echocardiogram ejection fraction 60 to 65%. Per orders Subjective ROS Limited/Unobtainable: No Constitutional: Reports: malaise, weakness Objective Objective Last 24 Hour Vital Signs Date Time Temp Pulse Resp B/P (MAP) Pulse Ox O2 Delivery O2 Flow Rate FiO2 11/18/20 12:00 63 11/18/20 12:00 98.2 68 20 130/59 (82) 95 68 68 11/18/20 09:00 Room Air 11/18/20 08:27 75 120/60 11/18/20 08:26 75 120/60 11/18/20 08:00 98.6 81 22 116/79 (91) 100 71 71 11/18/20 08:00 77 11/18/20 04:00 99.1 71 14 120/60 (80) 93 71 71 11/18/20 04:00 71 11/18/20 00:00 97.9 72 18 131/59 (83) 93 72 72 11/18/20 00:00 69 11/17/20 21:00 Room Air 11/17/20 20:42 69 120/56 11/17/20 20:00 70 11/17/20 20:00 98.2 69 14 120/56 (77) 99 69 69 11/17/20 18:35 73 112/73 11/17/20 16:00 98.2 69 20 112/73 (86) 99 69 69 11/17/20 16:00 59 Intake and Output 11/17/20 11/18/20 19:00 07:00 Intake Total 840 ml 720 ml Balance 840 ml 720 ml Intake Oral 840 ml 720 ml # Voids 2 # Bowel Movements 1 Current Medications Medications (Trade) Dose Ordered Sig/Manasa Route PRN Reason Start Time Stop Time Status Last Admin Dose Admin Acetaminophen (Tylenol) 500 mg Q4H PRN ORAL For Pain 11/01/20 01:00 12/01/20 00:59 11/01/20 18:50 Acetaminophen (Tylenol) 650 mg Q4H PRN RECTAL Temp >100.5 11/01/20 21:30 12/01/20 21:29 Allopurinol (Zyloprim) 200 mg DAILY ORAL 11/01/20 16:00 12/01/20 15:59 11/18/20 08:25 Amiodarone HCl (Cordarone) 200 mg DAILY ORAL 11/10/20 09:00 02/08/21 08:59 11/18/20 08:23 Chlorhexidine Gluconate (María Elena-Hex 2%) 1 applic DAILY@1999 TOPIC 11/04/20 20:00 02/02/21 19:59 11/16/20 21:34 Clonidine HCl (Catapres Tab) 0.1 mg Q4H PRN ORAL bp over 160 syst 10/31/20 17:45 01/29/21 17:44 11/01/20 09:20 Dextrose (Dextrose 50%) 25 ml Q30M PRN IV Hypoglycemia 11/01/20 07:15 01/30/21 07:14 Dextrose (Dextrose 50%) 50 ml Q30M PRN IV Hypoglycemia 11/01/20 07:15 01/30/21 07:14 Diltiazem HCl (Cardizem Tab) 90 mg BID ORAL 11/07/20 10:15 12/02/20 17:59 11/18/20 08:26 Docusate Sodium (Colace) 100 mg TWICE A DAY ORAL 10/31/20 18:00 11/30/20 17:59 11/18/20 08:23 Enoxaparin Sodium (Lovenox) 30 mg DAILY SUBQ 11/16/20 09:00 02/14/21 08:59 11/18/20 08:27 Haloperidol Lactate (Haldol) 5 mg Q6H PRN IM Agitation 11/06/20 21:30 12/21/20 21:29 11/18/20 11:02 Insulin Aspart (NovoLOG) BEFORE MEALS AND HS SUBQ 11/01/20 11:30 01/30/21 11:29 11/18/20 12:37 Insulin Aspart (NovoLOG) 8 units NOVOTIAC SUBQ 11/16/20 06:30 01/30/21 11:49 11/18/20 12:37 Insulin Detemir (Levemir) 6 units QHS SUBQ 11/17/20 21:00 01/30/21 08:59 11/17/20 20:53 Methimazole (Tapazole) 10 mg DAILY ORAL 11/03/20 09:00 12/03/20 08:59 11/18/20 08:23 Metoprolol Tartrate (Lopressor) 50 mg Q12HR ORAL 11/01/20 21:00 01/30/21 20:59 11/18/20 08:27 Ondansetron HCl (Zofran) 4 mg Q6H PRN IVP Nausea & Vomiting 11/07/20 16:30 12/07/20 16:29 11/07/20 17:28 Pantoprazole (Protonix) 40 mg BID ORAL 10/31/20 18:00 11/30/20 17:44 11/18/20 08:22 Sitagliptin Phosphate (Januvia) 25 mg ACBREAKFAST ORAL 11/06/20 06:30 12/06/20 06:29 11/18/20 05:32 Tamsulosin HCl (Flomax) 0.4 mg BID ORAL 11/03/20 12:00 12/03/20 11:59 11/18/20 08:23 Vitamin D (Vitamin D) 5,000 unit DAILY ORAL 11/13/20 09:00 12/13/20 08:59 11/18/20 08:24 Laboratory Tests 11/18/20 05:00: White Blood Count 7.6, Red Blood Count 2.99L, Hemoglobin 9.1L, Hematocrit 28.0L, Mean Corpuscular Volume 94, Mean Corpuscular Hemoglobin 30.5, Mean Corpuscular Hemoglobin Concent 32.6, Red Cell Distribution Width 13.8, Platelet Count 120L, Mean Platelet Volume 5.8L, Neutrophils (%) (Auto) 80.7H, Lymphocytes (%) (Auto) 11.4L, Monocytes (%) (Auto) 5.4, Eosinophils (%) (Auto) 2.2, Basophils (%) (Auto) 0.3, Sodium Level 137, Potassium Level 4.4, Chloride Level 103, Carbon Dioxide Level 23, Anion Gap 11, Blood Urea Nitrogen 35H, Creatinine 3.0H, Estimat Glomerular Filtration Rate 20.4, Glucose Level 154H, Calcium Level 8.2L, Phosphorus Level 3.7, Total Bilirubin 0.3, Aspartate Amino Transf (AST/SGOT) 24, Alanine Aminotransferase (ALT/SGPT) 24, Alkaline Phosphatase 94, C-Reactive P rotein, Quantitative 3.3H, Pro-B-Type Natriuretic Peptide 1013H, Total Protein 5.8L, Albumin 1.9L, Globulin 3.9, Albumin/Globulin Ratio 0.5L Height (Feet): 5 Height (Inches): 5.00 Weight (Pounds): 150 General Appearance: no apparent distress Cardiovascular: normal rate Respiratory/Chest: decreased breath sounds Abdomen: soft Garth Buckley MD Nov 18, 2020 14:28
[2020-11-18 16:00] VITALS: BP 125/71
--- NOTE | 2020-11-18 19:59 | NUR ---
NURSE HAND-OFF REPORT: Important Events on Shift:[Glycemic control, BM] Patient Status: [Full code] Diet: [Renal Puree] Pending Orders: [N/A] Pending Results/Labs:[N/A] Pending MD notification:[N/A] Latest Vital Signs: Temperature 98.5 , Pulse 62 , B/P 125 /57 , Respiratory Rate 20 , O2 SAT 100 , Nasal Cannula, O2 Flow Rate 2.0 . Vital Sign Comment: [] EKG Rhythm: Sinus Rhythm Rhythm change?: N Notified?: Amari MCQUEEN MD Response: Message left await call Latest Bhat Fall Score: 50 Fall Risk: High Risk Safety Measures: Call light Within Reach, Bed Alarm Zone 1, Side Rails Side Rails x3, Bed position Low and Locked. Fall Precautions: Yellow Socks Yellow Gown Report given to [ARPITA Moncada].
[2020-11-18 20:00] VITALS: BP 115/60
--- NOTE | 2020-11-18 20:04 | NUR ---
NURSE NOTES: Patient in bed, awake and able to make needs known. 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 NSR. On room air with no signs of distress or SOB. Bilat soft wrist restraints in progress, skin in tact and pulses palpable. Bed locked and in lowest position. Call light in reach. Will continue plan of care.
--- NOTE | 2020-11-18 21:32 | General Progress Note ---
Subjective ROS Limited/Unobtainable: Yes Allergies: Coded Allergies: No Known Allergies (Unverified , 10/31/20) Objective Last 24 Hour Vital Signs Date Time Temp Pulse Resp B/P (MAP) Pulse Ox O2 Delivery O2 Flow Rate FiO2 11/18/20 17:17 62 125/57 11/18/20 16:00 98.5 62 20 125/71 (89) 100 62 62 11/18/20 16:00 60 11/18/20 12:00 63 11/18/20 12:00 98.2 68 20 130/59 (82) 95 68 68 11/18/20 09:00 Room Air 11/18/20 08:27 75 120/60 11/18/20 08:26 75 120/60 11/18/20 08:00 98.6 81 22 116/79 (91) 100 71 71 11/18/20 08:00 77 11/18/20 04:00 99.1 71 14 120/60 (80) 93 71 71 11/18/20 04:00 71 11/18/20 00:00 97.9 72 18 131/59 (83) 93 72 72 11/18/20 00:00 69 Intake and Output 11/17/20 11/18/20 19:00 07:00 Intake Total 840 ml 720 ml Balance 840 ml 720 ml Intake Oral 840 ml 720 ml # Voids 2 # Bowel Movements 1 Laboratory Tests 11/18/20 05:00: White Blood Count 7.6, Red Blood Count 2.99L, Hemoglobin 9.1L, Hematocrit 28.0L, Mean Corpuscular Volume 94, Mean Corpuscular Hemoglobin 30.5, Mean Corpuscular Hemoglobin Concent 32.6, Red Cell Distribution Width 13.8, Platelet Count 120L, Mean Platelet Volume 5.8L, Neutrophils (%) (Auto) 80.7H, Lymphocytes (%) (Auto) 11.4L, Monocytes (%) (Auto) 5.4, Eosinophils (%) (Auto) 2.2, Basophils (%) (Auto) 0.3, Sodium Level 137, Potassium Level 4.4, Chloride Level 103, Carbon Dioxide Level 23, Anion Gap 11, Blood Urea Nitrogen 35H, Creatinine 3.0H, Estimat Glomerular Filtration Rate 20.4, Glucose Level 154H, Calcium Level 8.2L, Phosphorus Level 3.7, Total Bilirubin 0.3, Aspartate Amino Transf (AST/SGOT) 24, Alanine Aminotransferase (ALT/SGPT) 24, Alkaline Phosphatase 94, C-Reactive Protein, Quantitative 3.3H, Pro-B-Type Natriuretic Peptide 1013H, Total Protein 5.8L, Albumin 1.9L, Globulin 3.9, Albumin/Globulin Ratio 0.5L Height (Feet): 5 Height (Inches): 5.00 Weight (Pounds): 150 Assessment/Plan Problem List: (1) Renal failure (ARF), acute on chronic ICD Codes: N17.9 - Acute kidney failure, unspecified; N18.9 - Chronic kidney disease, unspecified SNOMED: 801906428 (2) DKA (diabetic ketoacidoses) ICD Codes: E11.10 - Type 2 diabetes mellitus with ketoacidosis without coma SNOMED: 753557017, 45356129 (3) COVID-19 virus infection ICD Codes: U07.1 - COVID-19 SNOMED: 938114913 (4) Rhabdomyolysis ICD Codes: M62.82 - Rhabdomyolysis SNOMED: 015675693 (5) Diabetes mellitus out of control ICD Codes: E11.65 - Type 2 diabetes mellitus with hyperglycemia SNOMED: 65618925, 200010374 (6) Abnormal thyroid blood test ICD Codes: R79.89 - Other specified abnormal findings of blood chemistry SNOMED: 545358098, 215840345731937 (7) NSTEMI (non-ST elevated myocardial infarction) ICD Codes: I21.4 - Non-ST elevation (NSTEMI) myocardial infarction SNOMED: 55849117 Status: progressing, unchanged Assessment/Plan: covid + removed from isolation by dr gupta very weak and confused .so needs snf for pt/ot s/p dehydration Corey Soto MD Nov 18, 2020 21:32
[2020-11-18] MEDS: Dyna-Hex 2% Top Sol 2oz TOPIC SCH (22:15)
[2020-11-18] MEDS: Levemir Flexpen SUBQ SCH (22:20)
[2020-11-19] VITALS: BP 123/58
[2020-11-19 04:00] VITALS: BP 123/61
[2020-11-19] MEDS: sitaGLIPtin 25mg tab ORAL SCH (06:05)
[2020-11-19] MEDS: NovoLOG Insulin Flexpen SUBQ SCH ×7 (06:09→21:00)
--- NOTE | 2020-11-19 06:42 | NUR ---
NURSE HAND-OFF REPORT: Important Events on Shift: No acute events Patient Status: Stable Diet: Renal pureed moist Pending Orders: N/A Pending Results/Labs: BMP, CBC Pending notification: N/A Latest Vital Signs: Temperature 98.3 , Pulse 61 , B/P 123 /61 , Respiratory Rate 14 , O2 SAT 93 , Nasal Cannula, O2 Flow Rate 2.0 . Vital Sign Comment: N/A EKG Rhythm: Sinus Rhythm Rhythm change?: N Notified?: Amari MCQUEEN MD Response: Message left await call Latest Bhat Fall Score: 50 Fall Risk: High Risk Safety Measures: Call light Within Reach, Bed Alarm Zone 1, Side Rails Side Rails x3, Bed position Low and Locked. Fall Precautions: Yellow Socks Yellow Gown Addendum: 11/19/20 at 0737 by SOFI LEACH RN Report given to ARPITA [place]
--- NOTE | 2020-11-19 07:30 | NUR ---
NURSE NOTES: Receive a report from ARPITA Yoon.
--- NOTE | 2020-11-19 07:35 | NUR ---
RD ASSESSMENT & RECOMMENDATIONS SEE CARE ACTIVITY FOR COMPLETE ASSESSMENT DAILY ESTIMATED NEEDS: Needs based on DM, pulmonary, ARF 68.4kg 25-30 kcals/kg 1092-1512 total kcals 0.8-1.2 g protein/kg 55-82 g total protein 25-30 mL/kg 3828-2803 total fluid mLs NUTRITION DIAGNOSIS: Altered nutrition related lab values r/t DKA as evidenced by Uglu 4+ on adm, small acetone detected, BG 1087 upon adm-> now improved, A1C 8.1. CURRENT DIET: Renal/ pureed moist+ Ensure TID PO DIET RECOMMENDATIONS: LOW NA/ CCHO MED diet (texture as tolerated) ADDITIONAL RECOMMENDATIONS: 1) Monitor renal fxn and lytes, continuity of HD last HD 11/08, K, phos, mag wnl, creat stable 2) Monitor BGs closely for hypoglycemia w/ insulin regimen 3) Maintain calibrated bed scale wts 4) Nephrovite x 1 5) Monitor for continued improved intake Rec Glucerna (Vs Ensure)
[2020-11-19 08:00] VITALS: BP 116/56
--- NOTE | 2020-11-19 08:00 | NUR ---
NURSE NOTES: Pt is awake. Expresses his needs. No acute distress noted. Denies pain. On bilateral restraints on wrists. Skin intact. Pt is able to express continence to use urinal. No respiratory distress noted. IV on right hand H/L. Call light within reach. Will continue to monitor.
--- NOTE | 2020-11-19 08:58 | Infectious Diseases Prog Note ---
Assessment/Plan Assessment/Plan A; COVID19 pneumonia Hypoxemia Acute renal failure improving Rhabdomyolysis Diarrhea, C. difficile negative DKA Hyperthyroidism Anemia Leukocytosis improving Dementia P; Finished Dexamethasone course Observe off antibiotic Subjective ROS Limited/Unobtainable: Yes Neurologic: Reports: confusion, other - on restraint Allergies: Coded Allergies: No Known Allergies (Unverified , 10/31/20) Objective Last 24 Hour Vital Signs Date Time Temp Pulse Resp B/P (MAP) Pulse Ox O2 Delivery O2 Flow Rate FiO2 11/19/20 08:00 63 11/19/20 08:00 98.1 64 18 116/56 (76) 92 11/19/20 04:00 98.3 61 14 123/61 (81) 93 11/19/20 03:30 69 11/19/20 00:00 99.0 62 16 123/58 (79) 94 11/18/20 23:40 64 11/18/20 22:16 67 115/60 11/18/20 21:00 Room Air 11/18/20 20:00 67 11/18/20 20:00 99.5 69 16 115/60 (78) 95 11/18/20 17:17 62 125/57 11/18/20 16:00 98.5 62 20 125/71 (89) 100 62 62 11/18/20 16:00 60 11/18/20 12:00 63 11/18/20 12:00 98.2 68 20 130/59 (82) 95 68 68 11/18/20 09:00 Room Air Height (Feet): 5 Height (Inches): 5.00 Weight (Pounds): 150 HEENT: mucous membranes moist Respiratory/Chest: lungs clear Cardiovascular: normal rate Abdomen: soft, non tender Extremities: no edema Neurologic/Psychiatric: other - sleeping Laboratory Tests Test 11/19/20 05:07 POC Whole Blood Glucose 198 MG/DL (74-106) H Current Medications Medications (Trade) Dose Ordered Sig/Manasa Route PRN Reason Start Time Stop Time Status Last Admin Dose Admin Acetaminophen (Tylenol) 500 mg Q4H PRN ORAL For Pain 11/01/20 01:00 12/01/20 00:59 11/01/20 18:50 Acetaminophen (Tylenol) 650 mg Q4H PRN RECTAL Temp >100.5 11/01/20 21:30 12/01/20 21:29 Allopurinol (Zyloprim) 200 mg DAILY ORAL 11/01/20 16:00 12/01/20 15:59 11/18/20 08:25 Amiodarone HCl (Cordarone) 200 mg DAILY ORAL 11/10/20 09:00 02/08/21 08:59 11/18/20 08:23 Chlorhexidine Gluconate (María Elena-Hex 2%) 1 applic DAILY@2000 TOPIC 11/04/20 20:00 02/02/21 19:59 11/16/20 21:34 Clonidine HCl (Catapres Tab) 0.1 mg Q4H PRN ORAL bp over 160 syst 10/31/20 17:45 01/29/21 17:44 11/01/20 09:20 Dextrose (Dextrose 50%) 25 ml Q30M PRN IV Hypoglycemia 11/01/20 07:15 01/30/21 07:14 Dextrose (Dextrose 50%) 50 ml Q30M PRN IV Hypoglycemia 11/01/20 07:15 01/30/21 07:14 Diltiazem HCl (Cardizem Tab) 90 mg BID ORAL 11/07/20 10:15 12/02/20 17:59 11/18/20 08:26 Docusate Sodium (Colace) 100 mg TWICE A DAY ORAL 10/31/20 18:00 11/30/20 17:59 11/18/20 17:23 Enoxaparin Sodium (Lovenox) 30 mg DAILY SUBQ 11/16/20 09:00 02/14/21 08:59 11/18/20 08:27 Haloperidol Lactate (Haldol) 5 mg Q6H PRN IM Agitation 11/06/20 21:30 12/21/20 21:29 11/18/20 11:02 Insulin Aspart (NovoLOG) BEFORE MEALS AND HS SUBQ 11/01/20 11:30 01/30/21 11:29 11/19/20 06:09 Insulin Aspart (NovoLOG) 8 units NOVOTIAC SUBQ 11/16/20 06:30 01/30/21 11:49 11/19/20 06:10 Insulin Detemir (Levemir) 6 units QHS SUBQ 11/17/20 21:00 01/30/21 08:59 11/18/20 22:20 Methimazole (Tapazole) 10 mg DAILY ORAL 11/03/20 09:00 12/03/20 08:59 11/18/20 08:23 Metoprolol Tartrate (Lopressor) 50 mg Q12HR ORAL 11/01/20 21:00 01/30/21 20:59 11/18/20 22:16 Ondansetron HCl (Zofran) 4 mg Q6H PRN IVP Nausea & Vomiting 11/07/20 16:30 12/07/20 16:29 11/07/20 17:28 Pantoprazole (Protonix) 40 mg BID ORAL 10/31/20 18:00 11/30/20 17:44 11/18/20 17:23 Sitagliptin Phosphate (Januvia) 25 mg ACBREAKFAST ORAL 11/06/20 06:30 12/06/20 06:29 11/19/20 06:05 Tamsulosin HCl (Flomax) 0.4 mg BID ORAL 11/03/20 12:00 12/03/20 11:59 11/18/20 17:23 Vitamin D (Vitamin D) 5,000 unit DAILY ORAL 11/13/20 09:00 12/13/20 08:59 11/18/20 08:24 Reji Connelly MD Nov 19, 2020 08:58
[2020-11-19] MEDS: Enoxaparin 30mg Inj SUBQ SCH (09:00)
[2020-11-19] MEDS: methIMAzole 10mg tab ORAL SCH (09:33)
[2020-11-19] MEDS: Amiodarone 200mg tab ORAL SCH (09:34)
[2020-11-19] MEDS: Vitamin D 1000 units Tab ORAL SCH (09:34)
[2020-11-19] MEDS: Docusate 100mg cap ORAL SCH ×2 (09:34→18:28)
[2020-11-19] MEDS: Tamsulosin 0.4mg cap ORAL SCH ×2 (09:35→18:28)
[2020-11-19] MEDS: Metoprolol Tartrate 50mg tab ORAL SCH ×2 (09:35→21:00)
[2020-11-19] MEDS: Allopurinol 100mg Tab ORAL SCH (09:35)
[2020-11-19] MEDS: dilTIAZem HCl 90mg tab ORAL SCH ×2 (09:36→18:28)
[2020-11-19 09:41] LABS: BASOPHILS % (AUTO) 1.3 % (0.0-2.0); EOSINOPHILS % (AUTO) 2.6 % (0.0-3.0); HEMATOCRIT 26.2 % (42.0-52.0); HEMOGLOBIN 8.4 G/DL (14.2-18.0); LYMPHOCYTES % (AUTO) 11.2 % (20.0-45.0); MEAN CORPUSCULAR VOLUME 92 FL (80-99); MONOCYTES % (AUTO) 6.2 % (1.0-10.0); NEUTROPHILS % (AUTO) 78.7 % (45.0-75.0); PLATELET COUNT 128 K/UL (150-450); RED BLOOD COUNT 2.84 M/UL (4.70-6.10); RED CELL DISTRIBUTION WIDTH 13.2 % (11.6-14.8); WHITE BLOOD COUNT 6.6 K/UL (4.8-10.8)
[2020-11-19 09:49] LABS: CALCIUM 7.8 MG/DL (8.5-10.1); POTASSIUM 4.3 MMOL/L (3.5-5.1)
--- NOTE | 2020-11-19 10:09 | Pulmonology Progress Note ---
Subjective ROS Limited/Unobtainable: Yes Interval Events: none major reported per nursing Constitutional: Denies: fever Gastrointestinal/Abdominal: Reports: diarrhea - C. diff negative Psychiatric: Reports: other - on restraint Allergies: Coded Allergies: No Known Allergies (Unverified , 10/31/20) Objective Last 24 Hour Vital Signs Date Time Temp Pulse Resp B/P (MAP) Pulse Ox O2 Delivery O2 Flow Rate FiO2 11/19/20 09:36 68 116/56 11/19/20 09:35 68 116/56 11/19/20 08:00 63 11/19/20 08:00 98.1 64 18 116/56 (76) 92 11/19/20 04:00 98.3 61 14 123/61 (81) 93 11/19/20 03:30 69 11/19/20 00:00 99.0 62 16 123/58 (79) 94 11/18/20 23:40 64 11/18/20 22:16 67 115/60 11/18/20 21:00 Room Air 11/18/20 20:00 67 11/18/20 20:00 99.5 69 16 115/60 (78) 95 11/18/20 17:17 62 125/57 11/18/20 16:00 98.5 62 20 125/71 (89) 100 62 62 11/18/20 16:00 60 11/18/20 12:00 63 11/18/20 12:00 98.2 68 20 130/59 (82) 95 68 68 Intake and Output 11/18/20 11/19/20 19:00 07:00 Intake Total 736 ml 240 ml Output Total 1000 ml Balance 736 ml -760 ml Intake Oral 736 ml 240 ml Output Urine Total 1000 ml # Voids 4 # Bowel Movements 3 1 General Appearance: WD/WN, no acute distress HEENT: atraumatic Respiratory: chest wall non-tender Cardiovascular: normal rate, regular rhythm Abdomen: soft, non tender Laboratory Tests 11/19/20 05:07: POC Whole Blood Glucose 198H 11/19/20 09:19: White Blood Count 6.6, Red Blood Count 2.84L, Hemoglobin 8.4L, Hematocrit 26.2L, Mean Corpuscular Volume 92, Mean Corpuscular Hemoglobin 29.7, Mean Corpuscular Hemoglobin Concent 32.2, Red Cell Distribution Width 13.2, Platelet Count 128L, Mean Platelet Volume 6.5, Neutrophils (%) (Auto) 78.7H, Lymphocytes (%) (Auto) 11.2L, Monocytes (%) (Auto) 6.2, Eosinophils (%) (Auto) 2.6, Basophils (%) (Auto) 1.3, Sodium Level 136, Potassium Level 4.3, Chloride Level 104, Carbon Dioxide Level 26, Anion Gap 6, Blood Urea Nitrogen 35H, Creatinine 3.0H, Estimat Glomerular Filtration Rate 20.4, Glucose Level 210H, Calcium Level 7.8L Current Medications Medications (Trade) Dose Ordered Sig/Manasa Route PRN Reason Start Time Stop Time Status Last Admin Dose Admin Acetaminophen (Tylenol) 500 mg Q4H PRN ORAL For Pain 11/01/20 01:00 12/01/20 00:59 11/01/20 18:50 Acetaminophen (Tylenol) 650 mg Q4H PRN RECTAL Temp >100.5 11/01/20 21:30 12/01/20 21:29 Allopurinol (Zyloprim) 200 mg DAILY ORAL 11/01/20 16:00 12/01/20 15:59 11/19/20 09:35 Amiodarone HCl (Cordarone) 200 mg DAILY ORAL 11/10/20 09:00 02/08/21 08:59 11/19/20 09:34 Chlorhexidine Gluconate (María Elena-Hex 2%) 1 applic DAILY@2000 TOPIC 11/04/20 20:00 02/02/21 19:59 11/16/20 21:34 Clonidine HCl (Catapres Tab) 0.1 mg Q4H PRN ORAL bp over 160 syst 10/31/20 17:45 01/29/21 17:44 11/01/20 09:20 Dextrose (Dextrose 50%) 25 ml Q30M PRN IV Hypoglycemia 11/01/20 07:15 01/30/21 07:14 Dextrose (Dextrose 50%) 50 ml Q30M PRN IV Hypoglycemia 11/01/20 07:15 01/30/21 07:14 Diltiazem HCl (Cardizem Tab) 90 mg BID ORAL 11/07/20 10:15 12/02/20 17:59 11/19/20 09:36 Docusate Sodium (Colace) 100 mg TWICE A DAY ORAL 10/31/20 18:00 11/30/20 17:59 11/19/20 09:34 Enoxaparin Sodium (Lovenox) 30 mg DAILY SUBQ 11/16/20 09:00 02/14/21 08:59 11/18/20 08:27 Haloperidol Lactate (Haldol) 5 mg Q6H PRN IM Agitation 11/06/20 21:30 12/21/20 21:29 11/18/20 11:02 Insulin Aspart (NovoLOG) BEFORE MEALS AND HS SUBQ 11/01/20 11:30 01/30/21 11:29 11/19/20 06:09 Insulin Aspart (NovoLOG) 8 units NOVOTIAC SUBQ 11/16/20 06:30 01/30/21 11:49 11/19/20 06:10 Insulin Detemir (Levemir) 6 units QHS SUBQ 11/17/20 21:00 01/30/21 08:59 11/18/20 22:20 Methimazole (Tapazole) 10 mg DAILY ORAL 11/03/20 09:00 12/03/20 08:59 11/19/20 09:33 Metoprolol Tartrate (Lopressor) 50 mg Q12HR ORAL 11/01/20 21:00 01/30/21 20:59 11/19/20 09:35 Ondansetron HCl (Zofran) 4 mg Q6H PRN IVP Nausea & Vomiting 11/07/20 16:30 12/07/20 16:29 11/07/20 17:28 Pantoprazole (Protonix) 40 mg BID ORAL 10/31/20 18:00 11/30/20 17:44 11/19/20 09:35 Sitagliptin Phosphate (Januvia) 25 mg ACBREAKFAST ORAL 11/06/20 06:30 12/06/20 06:29 11/19/20 06:05 Tamsulosin HCl (Flomax) 0.4 mg BID ORAL 11/03/20 12:00 12/03/20 11:59 11/19/20 09:35 Vitamin D (Vitamin D) 5,000 unit DAILY ORAL 11/13/20 09:00 12/13/20 08:59 11/19/20 09:34 Assessment/Plan Assessment/Plan Assessment/Plan 1. Non-ST elevation myocardial infarction. - cardiology following 2. Diabetic ketoacidosis - seen by endocrinology - continue fluids - on insulin 3. Atrial flutter with rapid ventricular response. - Continue metoprolol 50 mg b.i.d. 4. COVID positive pneumonia. - s/p Decadron (11/03-11/12) - Supplemental O2 - saturating at 94% on RA; weaned off oxygen - CXR 11/04 developing b/l infilitrates 5. Renal failure - nephrology following - pt pulled out femoral HD cath, s/p new IJ - removal of HD line once stable 6. Accelerated hypertension. 7. Hyperthyroidism - Dr. Tamez following 8. Diarrhea - C. diff negative 9. DVT ppx - s/p Eliquis - We will restart low dose Lovenox given eGFR <30 - ok to continue if plt >50K per heme onc 10. Anemia - s/p transfusion (11/16) Medically stable for discharge from pulmonary standpoint Awaiting home health The care for this patient was discussed with my supervising physician Jose Quintana NP Nov 19, 2020 10:09
--- NOTE | 2020-11-19 10:20 | Cardiac Electrophysiology PN ---
Assessment/Plan Assessment/Plan 1. NSTEMI with troponin of 0.25 and 0.35 in this patient with DKA as well as atrial flutter with rapid ventricular response. On metoprolol 50 mg b.i.d. EF 65% 2. Atrial flutter with RVR On metoprolol 50 mg bid, Cardizem 90 bid and Amiodarone 200 po daily Off Eliquis for hematuria 3. Diabetic ketoacidosis with glucose of more than 1000. 4. Hypertension. On Lopressor 50 bid and Cardizem 90 bid 5. COVID positive pneumonia. 6. Acute Renal failure in the setting of total CK of 1900, maybe rhabdomyolysis- induced renal failure. On HD via RFV Yazan by Dr. Buckley. RFV Yazan pulled out by patient. S/P New RIJ Yazan on 11/11/20 that was then removed on 11/17 as no more need for HD 7. Anemia. S/P PRBC 11/16 DW RN Subjective Subjective Pulled out his RFV Yazan catheter after HD 11/08/20. S/P new Yazan catheter placement 11/11/20. In restraints in covid isolation. On RA In SR on Amio, Cardizem and metoprolol. Off Eliquis due to hematuria R IJ HD catheter removed 11/17/20 S/P PRBC for Hb 7.7 SNIF vs home with HH pending Objective Last 24 Hour Vital Signs Date Time Temp Pulse Resp B/P (MAP) Pulse Ox O2 Delivery O2 Flow Rate FiO2 11/19/20 09:36 68 116/56 11/19/20 09:35 68 116/56 11/19/20 08:00 63 11/19/20 08:00 98.1 64 18 116/56 (76) 92 11/19/20 04:00 98.3 61 14 123/61 (81) 93 11/19/20 03:30 69 11/19/20 00:00 99.0 62 16 123/58 (79) 94 11/18/20 23:40 64 11/18/20 22:16 67 115/60 11/18/20 21:00 Room Air 11/18/20 20:00 67 11/18/20 20:00 99.5 69 16 115/60 (78) 95 11/18/20 17:17 62 125/57 11/18/20 16:00 98.5 62 20 125/71 (89) 100 62 62 11/18/20 16:00 60 11/18/20 12:00 63 11/18/20 12:00 98.2 68 20 130/59 (82) 95 68 68 Intake and Output 11/18/20 11/19/20 19:00 07:00 Intake Total 736 ml 240 ml Output Total 1000 ml Balance 736 ml -760 ml Intake Oral 736 ml 240 ml Output Urine Total 1000 ml # Voids 4 # Bowel Movements 3 1 Laboratory Tests Test 11/19/20 05:07 11/19/20 09:19 POC Whole Blood Glucose 198 MG/DL (74-106) H White Blood Count 6.6 K/UL (4.8-10.8) Red Blood Count 2.84 M/UL (4.70-6.10) L Hemoglobin 8.4 G/DL (14.2-18.0) L Hematocrit 26.2 % (42.0-52.0) L Mean Corpuscular Volume 92 FL (80-99) Mean Corpuscular Hemoglobin 29.7 PG (27.0-31.0) Mean Corpuscular Hemoglobin Concent 32.2 G/DL (32.0-36.0) Red Cell Distribution Width 13.2 % (11.6-14.8) Platelet Count 128 K/UL (150-450) L Mean Platelet Volume 6.5 FL (6.5-10.1) Neutrophils (%) (Auto) 78.7 % (45.0-75.0) H Lymphocytes (%) (Auto) 11.2 % (20.0-45.0) L Monocytes (%) (Auto) 6.2 % (1.0-10.0) Eosinophils (%) (Auto) 2.6 % (0.0-3.0) Basophils (%) (Auto) 1.3 % (0.0-2.0) Sodium Level 136 MMOL/L (136-145) Potassium Level 4.3 MMOL/L (3.5-5.1) Chloride Level 104 MMOL/L (98-107) Carbon Dioxide Level 26 MMOL/L (21-32) Anion Gap 6 mmol/L (5-15) Blood Urea Nitrogen 35 mg/dL (7-18) H Creatinine 3.0 MG/DL (0.55-1.30) H Estimat Glomerular Filtration Rate 20.4 mL/min (>60) Glucose Level 210 MG/DL (74-106) H Calcium Level 7.8 MG/DL (8.5-10.1) L Objective HEAD AND NECK: No JVD. LUNGS: Clear. CARDIOVASCULAR: Shows regular S1 and S2 with no gallop. ABDOMEN: Soft. EXTREMITIES: Right IJ Yazan is removed. No pitting edema. Sivakumar Escalante MD Nov 19, 2020 10:20
--- NOTE | 2020-11-19 11:15 | NUR ---
NURSE NOTES: Receive a call from family member, son and update current pt's conditions and discharge situation. Will contact to Dr. Soto. Will follow up.
--- NOTE | 2020-11-19 11:36 | NUR ---
NURSE NOTES: Receive a respond from Dr. Soto about discharge planning. strongly recommends to place SNF for PT/OT for a short stay. Relay to on-call oil field caser and family member. Will continue to follow up.
--- NOTE | 2020-11-19 11:54 | NUR ---
DISCHARGE PLANNING CLINCALS FAXED TO [facility] T: [phone] F: [phone]
[2020-11-19] MEDS: Acetaminophen 500mg (ES) tab ORAL PRN ×2 (11:58→22:08)
[2020-11-19 12:00] VITALS: BP 115/71
--- NOTE | 2020-11-19 12:00 | NUR ---
NURSE NOTES: Receive a call from the director of Case Management and got informed what family member wants. Also relay what Dr. Soto' recommendation was. Will continue to follow up.
--- NOTE | 2020-11-19 12:30 | NUR ---
NURSE NOTES: Confirm with Dr. Soto of discharge planning as DC home with home health and an actual order will be placed on Saturday.
--- NOTE | 2020-11-19 13:30 | NUR ---
NURSE NOTES: Update to family member, son, for discharge planning.
--- NOTE | 2020-11-19 14:01 | NUR ---
CASE MANAGEMENT:REVIEW 11/19/20 SI: NSTEMI. COVID PNA. RENAL FAILURE 98.4 61 18 115/71 96% ON RA H/H-8.4/26.2 PLT-128 BUN+35 CR+3.0 IS: LEVEMIR SQ QHS LOVENOX SQ QD AMIODARONE PO QD CARDIZEM PO BID FLOMAX PO BID LOPRESSOR PO Q12 : TELEMETRY STATUS DCP: FROM HOME PLAN: REFER TO SNF FOR SHORT STAY OT/PT
--- NOTE | 2020-11-19 14:15 | NUR ---
NURSE NOTES: Update to on-call case manage for DC planning.
--- NOTE | 2020-11-19 15:45 | Nephrology Progress Note ---
Assessment/Plan Problem List: (1) Renal failure (ARF), acute on chronic (2) DKA (diabetic ketoacidoses) (3) COVID-19 virus infection (4) Rhabdomyolysis (5) Abnormal thyroid blood test (6) NSTEMI (non-ST elevated myocardial infarction) Assessment 75-year-old [place] male Covid positive Acute renal failure, most likely superimposed on chronic kidney disease Diabetes mellitus, presents with severe hyperglycemia and DKA History of hypertension Plan November 19: Serum creatinine stable at 3. Full code. No dialysis needed. Continue per consultants. November 18: Serum creatinine 3. No need for dialysis. Remains full code. Continue as is. November 17: No labs drawn today. No dialysis since November 08. Plan to remove all of dialysis catheter. Check labs tomorrow if in-house. November 16: Labs reviewed. Serum creatinine lower 2.9. No need for dialysis catheter anymore. Continue as is. November 15: Labs reviewed. Serum creatinine unchanged. Calculated creatinine clearance 19 mL/h. No dialysis needed at this time. November 14: Lab reviewed. Serum creatinine 3.2 unchanged. No need for dialysis. Continue per consultants. November 13: Lab reviewed. Serum creatinine 3.2. No need for dialysis today. Continue to monitor renal parameters. Continue per consultants. November 12: Labs reviewed. Serum creatinine 3. No dialysis needed today. Continue to monitor renal parameters. November 11: Labs reviewed. Serum creatinine higher. Due for placement of a Nontunneled catheter today. We will schedule dialysis as needed. Patient's leukocytosis gradually improving. November 10: Lab reviewed. Serum creatinine rising. We will proceed with placement of a nontunneled catheter tomorrow and dialysis. Patient has leukocytosis at this time. Continue per consultants. November 09: Labs reviewed. Patient was dialyzed yesterday. Patient pulled out the dialysis catheter last night. Renal parameters stable. Continue to monitor and if dialysis needed to place a new temporary catheter. Per orders. November 08: Labs reviewed. Serum creatinine is plateauing. Due for dialysis today. We will continue to monitor renal parameters and dialysis as needed. November 07: Labs reviewed. Serum creatinine rising. IV fluid discontinued. Dialysis for tomorrow. Continue per consultants. November 06: Labs reviewed. Blood pressure stable. Medication list reviewed. Dialysis as needed. November 05: Due for dialysis today. Labs are reviewed. Blood pressure is stable. Continue to monitor renal parameters. November 04: Patient was dialyzed yesterday. 1 L ultrafiltrated. Labs reviewed. Renal parameters stable. Will attempt dialysis again tomorrow. Medication list reviewed. November 03: Labs reviewed. Serum creatinine rising. Patient has hematuria. Patient on Eliquis. Will arrange for placement of dialysis catheter and attempt to dialyze. Will start Flomax since the patient could not have a Anand catheter. Continue to monitor renal parameters. Continue per consultants. Discussed with RN. Consent for placement of nontunneled catheter ordered. Patient is also on Tapazole for high thyroid hormone. CPK is lowering. November 02: Labs reviewed. Serum creatinine up to 4. In S DU now. On Cardizem drip. Measured creatinine clearance . Patient may lead towards dialysis. Continue to monitor renal parameters. November 01: Renal parameters improving. Blood sugar is improving. Continue to monitor electrolytes renal parameters and urine output. Aim to control blood sugar and blood pressure. Avoid nephrotoxic's. Monitor CPK as it is elevated. Previously: Anand catheter Blood sugar control Slow hydration Monitor renal parameters Kidney ultrasound no hydronephrosis 2D echocardiogram ejection fraction 60 to 65%. Per orders Subjective ROS Limited/Unobtainable: No Constitutional: Reports: malaise Objective Objective Last 24 Hour Vital Signs Date Time Temp Pulse Resp B/P (MAP) Pulse Ox O2 Delivery O2 Flow Rate FiO2 11/19/20 12:00 61 11/19/20 12:00 98.4 61 18 115/71 (86) 96 11/19/20 09:36 68 116/56 11/19/20 09:35 68 116/56 11/19/20 09:00 Room Air 11/19/20 08:00 63 11/19/20 08:00 98.1 64 18 116/56 (76) 92 11/19/20 04:00 98.3 61 14 123/61 (81) 93 11/19/20 03:30 69 11/19/20 00:00 99.0 62 16 123/58 (79) 94 11/18/20 23:40 64 11/18/20 22:16 67 115/60 11/18/20 21:00 Room Air 11/18/20 20:00 67 11/18/20 20:00 99.5 69 16 115/60 (78) 95 11/18/20 17:17 62 125/57 11/18/20 16:00 98.5 62 20 125/71 (89) 100 62 62 11/18/20 16:00 60 Intake and Output 11/18/20 11/19/20 19:00 07:00 Intake Total 736 ml 240 ml Output Total 1000 ml Balance 736 ml -760 ml Intake Oral 736 ml 240 ml Output Urine Total 1000 ml # Voids 4 # Bowel Movements 3 1 Current Medications Medications (Trade) Dose Ordered Sig/Manasa Route PRN Reason Start Time Stop Time Status Last Admin Dose Admin Acetaminophen (Tylenol) 500 mg Q4H PRN ORAL For Pain 11/01/20 01:00 12/01/20 00:59 11/19/20 11:58 Acetaminophen (Tylenol) 650 mg Q4H PRN RECTAL Temp >100.5 11/01/20 21:30 12/01/20 21:29 Allopurinol (Zyloprim) 200 mg DAILY ORAL 11/01/20 16:00 12/01/20 15:59 11/19/20 09:35 Amiodarone HCl (Cordarone) 200 mg DAILY ORAL 11/10/20 09:00 02/08/21 08:59 11/19/20 09:34 Chlorhexidine Gluconate (María Elena-Hex 2%) 1 applic DAILY@1999 TOPIC 11/04/20 20:00 02/02/21 19:59 11/16/20 21:34 Clonidine HCl (Catapres Tab) 0.1 mg Q4H PRN ORAL bp over 160 syst 10/31/20 17:45 01/29/21 17:44 11/01/20 09:20 Dextrose (Dextrose 50%) 25 ml Q30M PRN IV Hypoglycemia 11/01/20 07:15 01/30/21 07:14 Dextrose (Dextrose 50%) 50 ml Q30M PRN IV Hypoglycemia 11/01/20 07:15 01/30/21 07:14 Diltiazem HCl (Cardizem Tab) 90 mg BID ORAL 11/07/20 10:15 12/02/20 17:59 11/19/20 09:36 Docusate Sodium (Colace) 100 mg TWICE A DAY ORAL 10/31/20 18:00 11/30/20 17:59 11/19/20 09:34 Enoxaparin Sodium (Lovenox) 30 mg DAILY SUBQ 11/16/20 09:00 02/14/21 08:59 11/18/20 08:27 Haloperidol Lactate (Haldol) 5 mg Q6H PRN IM Agitation 11/06/20 21:30 12/21/20 21:29 11/18/20 11:02 Insulin Aspart (NovoLOG) BEFORE MEALS AND HS SUBQ 11/01/20 11:30 01/30/21 11:29 11/19/20 12:09 Insulin Aspart (NovoLOG) 8 units NOVOTIAC SUBQ 11/16/20 06:30 01/30/21 11:49 11/19/20 12:08 Insulin Detemir (Levemir) 6 units QHS SUBQ 11/17/20 21:00 01/30/21 08:59 11/18/20 22:20 Methimazole (Tapazole) 10 mg DAILY ORAL 11/03/20 09:00 12/03/20 08:59 11/19/20 09:33 Metoprolol Tartrate (Lopressor) 50 mg Q12HR ORAL 11/01/20 21:00 01/30/21 20:59 11/19/20 09:35 Ondansetron HCl (Zofran) 4 mg Q6H PRN IVP Nausea & Vomiting 11/07/20 16:30 12/07/20 16:29 11/07/20 17:28 Pantoprazole (Protonix) 40 mg BID ORAL 10/31/20 18:00 11/30/20 17:44 11/19/20 09:35 Sitagliptin Phosphate (Januvia) 25 mg ACBREAKFAST ORAL 11/06/20 06:30 12/06/20 06:29 11/19/20 06:05 Tamsulosin HCl (Flomax) 0.4 mg BID ORAL 11/03/20 12:00 12/03/20 11:59 11/19/20 09:35 Vitamin D (Vitamin D) 5,000 unit DAILY ORAL 11/13/20 09:00 12/13/20 08:59 11/19/20 09:34 Laboratory Tests 11/19/20 05:07: POC Whole Blood Glucose 198H 11/19/20 09:19: White Blood Count 6.6, Red Blood Count 2.84L, Hemoglobin 8.4L, Hematocrit 26.2L, Mean Corpuscular Volume 92, Mean Corpuscular Hemoglobin 29.7, Mean Corpuscular Hemoglobin Concent 32.2, Red Cell Distribution Width 13.2, Platelet Count 128L, Mean Platelet Volume 6.5, Neutrophils (%) (Auto) 78.7H, Lymphocytes (%) (Auto) 11.2L, Monocytes (%) (Auto) 6.2, Eosinophils (%) (Auto) 2.6, Basophils (%) (Auto) 1.3, Sodium Level 136, Potassium Level 4.3, Chloride Level 104, Carbon Dioxide Level 26, Anion Gap 6, Blood Urea Nitrogen 35H, Creatinine 3.0H, Estimat Glomerular Filtration Rate 20.4, Glucose Level 210H, Calcium Level 7.8L 11/19/20 11:48: POC Whole Blood Glucose 261H Height (Feet): 5 Height (Inches): 5.00 Weight (Pounds): 150 General Appearance: no apparent distress, lethargic Cardiovascular: normal rate Respiratory/Chest: decreased breath sounds Abdomen: distended Garth Buckley MD Nov 19, 2020 15:45
[2020-11-19 16:00] VITALS: BP 119/99
--- NOTE | 2020-11-19 16:43 | Surgery Progress Note ---
Surgery Progress Note Subjective Procedure Performed Right femoral temporary hemodialysis catheter insertion Additional Comments kidney function stable making urine hasn't required hd recently Objective Last 24 Hour Vital Signs Date Time Temp Pulse Resp B/P (MAP) Pulse Ox O2 Delivery O2 Flow Rate FiO2 11/19/20 12:00 61 11/19/20 12:00 98.4 61 18 115/71 (86) 96 11/19/20 09:36 68 116/56 11/19/20 09:35 68 116/56 11/19/20 09:00 Room Air 11/19/20 08:00 63 11/19/20 08:00 98.1 64 18 116/56 (76) 92 11/19/20 04:00 98.3 61 14 123/61 (81) 93 11/19/20 03:30 69 11/19/20 00:00 99.0 62 16 123/58 (79) 94 11/18/20 23:40 64 11/18/20 22:16 67 115/60 11/18/20 21:00 Room Air 11/18/20 20:00 67 11/18/20 20:00 99.5 69 16 115/60 (78) 95 11/18/20 17:17 62 125/57 I&O Intake and Output 11/18/20 11/19/20 19:00 07:00 Intake Total 736 ml 240 ml Output Total 1000 ml Balance 736 ml -760 ml Intake Oral 736 ml 240 ml Output Urine Total 1000 ml # Voids 4 # Bowel Movements 3 1 Dressing: saturated Cardiovascular: RSR Respiratory: clear, decreased breath sounds Abdomen: soft, flat, present bowel sounds Extremities: no edema, no tenderness Laboratory Tests Test 11/19/20 05:07 11/19/20 09:19 11/19/20 11:48 POC Whole Blood Glucose 198 MG/DL (74-106) H 261 MG/DL (74-106) H White Blood Count 6.6 K/UL (4.8-10.8) Red Blood Count 2.84 M/UL (4.70-6.10) L Hemoglobin 8.4 G/DL (14.2-18.0) L Hematocrit 26.2 % (42.0-52.0) L Mean Corpuscular Volume 92 FL (80-99) Mean Corpuscular Hemoglobin 29.7 PG (27.0-31.0) Mean Corpuscular Hemoglobin Concent 32.2 G/DL (32.0-36.0) Red Cell Distribution Width 13.2 % (11.6-14.8) Platelet Count 128 K/UL (150-450) L Mean Platelet Volume 6.5 FL (6.5-10.1) Neutrophils (%) (Auto) 78.7 % (45.0-75.0) H Lymphocytes (%) (Auto) 11.2 % (20.0-45.0) L Monocytes (%) (Auto) 6.2 % (1.0-10.0) Eosinophils (%) (Auto) 2.6 % (0.0-3.0) Basophils (%) (Auto) 1.3 % (0.0-2.0) Sodium Level 136 MMOL/L (136-145) Potassium Level 4.3 MMOL/L (3.5-5.1) Chloride Level 104 MMOL/L (98-107) Carbon Dioxide Level 26 MMOL/L (21-32) Anion Gap 6 mmol/L (5-15) Blood Urea Nitrogen 35 mg/dL (7-18) H Creatinine 3.0 MG/DL (0.55-1.30) H Estimat Glomerular Filtration Rate 20.4 mL/min (>60) Glucose Level 210 MG/DL (74-106) H Calcium Level 7.8 MG/DL (8.5-10.1) L Plan Problems: (1) DKA (diabetic ketoacidoses) (2) Renal failure (ARF), acute on chronic Assessment & Plan: s/p temp HD line recovering renal function not stable hold on removal of line (3) COVID-19 virus infection Assessment & Plan: 75-year-old male Covid positive renal insufficiency recently had temporary dialysis catheter placement develop leukocytosis soon after. Vitals noted. Exam stable. Catheter was evaluated no acute active inflammatory or infectious process identified. Catheter is clean dry intact. The dressings are not saturated. There is no active bleeding identified. There is no signs of active infection. Leukocytosis anterior collated to medications currently given for COVID-19 infection. Will monitor closely to ensure no active development of infection or related to catheter placement. Thank you for let me participate patient's care will follow with recommendations trend leukocytosis cont dressings cont care plan as noted cont HD trend renal function (4) Rhabdomyolysis Assessment & Plan: improved resuscitated no n/v tolerating diet labs improved likely secondary to down DAILY ESTIMATED NEEDS: Needs based on DM, pulmonary 68.4kg 25-30 kcals/kg 6075-5719 total kcals 1-1.5 g protein/kg 68-102 g total protein 25-30 mL/kg 0256-3993 total fluid mLs NUTRITION DIAGNOSIS: Altered nutrition related lab values r/t DKA as evidenced by Uglu 4+ on adm, small acetone detected, BG 1087 upon adm-> now improved, A1C 8.1. CURRENT DIET: Renal/ pureed moist+ Ensure TID PO DIET RECOMMENDATIONS: RENAL/ CCHO MED diet (texture as tolerated) ADDITIONAL RECOMMENDATIONS: 1) Monitor renal fxn and lytes, continuity of HD last HD 11/08, K, phos, mag wnl 2) Monitor BGs closely for hypoglycemia w/ insulin regimen 3) Maintain calibrated bed scale wts 4) Nephrovite x 1 5) Monitor for continued improved intake - rec to decrease HPN to QD at this time. Rec Nepro (5) Diabetes mellitus out of control (6) Abnormal thyroid blood test (7) NSTEMI (non-ST elevated myocardial infarction) Norberto Steele Nov 19, 2020 16:43
--- NOTE | 2020-11-19 18:45 | NUR ---
NURSE HAND-OFF REPORT: Important Events on Shift: On process of DC planning. Spo2 92-96% in RA. No distress noted. Patient Status: [stable] Diet: [renal diet] Pending Orders: [] Pending Results/Labs:[] Pending MD notification:[] Latest Vital Signs: Temperature 98.4 , Pulse 57 , B/P 119 /99 , Respiratory Rate 18 , O2 SAT 94 , Nasal Cannula, O2 Flow Rate 2.0 . Vital Sign Comment: [] EKG Rhythm: Sinus Rhythm Rhythm change?: N Notified?: Amari MCQUEEN MD Response: Message left await call Latest Bhat Fall Score: 50 Fall Risk: High Risk Safety Measures: Call light Within Reach, Bed Alarm Zone 1, Side Rails Side Rails x3, Bed position Low and Locked. Fall Precautions: Yellow Socks Yellow Gown
--- NOTE | 2020-11-19 19:18 | General Progress Note ---
Subjective ROS Limited/Unobtainable: Yes Allergies: Coded Allergies: No Known Allergies (Unverified , 10/31/20) Objective Last 24 Hour Vital Signs Date Time Temp Pulse Resp B/P (MAP) Pulse Ox O2 Delivery O2 Flow Rate FiO2 11/19/20 18:28 57 119/99 11/19/20 16:00 98.4 57 18 119/99 (106) 94 11/19/20 16:00 57 11/19/20 12:00 61 11/19/20 12:00 98.4 61 18 115/71 (86) 96 11/19/20 09:36 68 116/56 11/19/20 09:35 68 116/56 11/19/20 09:00 Room Air 11/19/20 08:00 63 11/19/20 08:00 98.1 64 18 116/56 (76) 92 11/19/20 04:00 98.3 61 14 123/61 (81) 93 11/19/20 03:30 69 11/19/20 00:00 99.0 62 16 123/58 (79) 94 11/18/20 23:40 64 11/18/20 22:16 67 115/60 11/18/20 21:00 Room Air 11/18/20 20:00 67 11/18/20 20:00 99.5 69 16 115/60 (78) 95 Intake and Output 11/18/20 11/19/20 19:00 07:00 Intake Total 736 ml 240 ml Output Total 1000 ml Balance 736 ml -760 ml Intake Oral 736 ml 240 ml Output Urine Total 1000 ml # Voids 4 # Bowel Movements 3 1 Laboratory Tests 11/19/20 05:07: POC Whole Blood Glucose 198H 11/19/20 09:19: White Blood Count 6.6, Red Blood Count 2.84L, Hemoglobin 8.4L, Hematocrit 26.2L, Mean Corpuscular Volume 92, Mean Corpuscular Hemoglobin 29.7, Mean Corpuscular Hemoglobin Concent 32.2, Red Cell Distribution Width 13.2, Platelet Count 128L, Mean Platelet Volume 6.5, Neutrophils (%) (Auto) 78.7H, Lymphocytes (%) (Auto) 11.2L, Monocytes (%) (Auto) 6.2, Eosinophils (%) (Auto) 2.6, Basophils (%) (Auto) 1.3, Sodium Level 136, Potassium Level 4.3, Chloride Level 104, Carbon Dioxide Level 26, Anion Gap 6, Blood Urea Nitrogen 35H, Creatinine 3.0H, Estimat Glomerular Filtration Rate 20.4, Glucose Level 210H, Calcium Level 7.8L 11/19/20 11:48: POC Whole Blood Glucose 261H 11/19/20 17:06: POC Whole Blood Glucose 120H Height (Feet): 5 Height (Inches): 5.00 Weight (Pounds): 150 Assessment/Plan Problem List: (1) Renal failure (ARF), acute on chronic ICD Codes: N17.9 - Acute kidney failure, unspecified; N18.9 - Chronic kidney disease, unspecified SNOMED: 880203794 (2) DKA (diabetic ketoacidoses) ICD Codes: E11.10 - Type 2 diabetes mellitus with ketoacidosis without coma SNOMED: 769618301, 97692055 (3) COVID-19 virus infection ICD Codes: U07.1 - COVID-19 SNOMED: 990545752 (4) Rhabdomyolysis ICD Codes: M62.82 - Rhabdomyolysis SNOMED: 914400943 (5) Diabetes mellitus out of control ICD Codes: E11.65 - Type 2 diabetes mellitus with hyperglycemia SNOMED: 98821381, 484682744 (6) Abnormal thyroid blood test ICD Codes: R79.89 - Other specified abnormal findings of blood chemistry SNOMED: 997729885, 482921816879648 (7) NSTEMI (non-ST elevated myocardial infarction) ICD Codes: I21.4 - Non-ST elevation (NSTEMI) myocardial infarction SNOMED: 98167304 Status: progressing, unchanged Assessment/Plan: covid + weak and debilitated family refusing snf s/p dehydration Corey Soto MD Nov 19, 2020 19:18
[2020-11-19 20:00] VITALS: BP 130/74
[2020-11-19] MEDS: Dyna-Hex 2% Top Sol 2oz TOPIC SCH (20:00)
--- NOTE | 2020-11-19 20:25 | Psychiatric Progress Note ---
Psychiatry Progress Note Psychiatry Progress Note Medications Current Medications Medications (Trade) Dose Ordered Sig/Manasa Route PRN Reason Start Time Stop Time Status Last Admin Dose Admin Acetaminophen (Tylenol) 500 mg Q4H PRN ORAL For Pain 11/01/20 01:00 12/01/20 00:59 11/19/20 11:58 Acetaminophen (Tylenol) 650 mg Q4H PRN RECTAL Temp >100.5 11/01/20 21:30 12/01/20 21:29 Allopurinol (Zyloprim) 200 mg DAILY ORAL 11/01/20 16:00 12/01/20 15:59 11/19/20 09:35 Amiodarone HCl (Cordarone) 200 mg DAILY ORAL 11/10/20 09:00 02/08/21 08:59 11/19/20 09:34 Chlorhexidine Gluconate (María Elena-Hex 2%) 1 applic DAILY@2000 TOPIC 11/04/20 20:00 02/02/21 19:59 11/16/20 21:34 Clonidine HCl (Catapres Tab) 0.1 mg Q4H PRN ORAL bp over 160 syst 10/31/20 17:45 01/29/21 17:44 11/01/20 09:20 Dextrose (Dextrose 50%) 25 ml Q30M PRN IV Hypoglycemia 11/01/20 07:15 01/30/21 07:14 Dextrose (Dextrose 50%) 50 ml Q30M PRN IV Hypoglycemia 11/01/20 07:15 01/30/21 07:14 Diltiazem HCl (Cardizem Tab) 90 mg BID ORAL 11/07/20 10:15 12/02/20 17:59 11/19/20 18:28 Docusate Sodium (Colace) 100 mg TWICE A DAY ORAL 10/31/20 18:00 11/30/20 17:59 11/19/20 18:28 Enoxaparin Sodium (Lovenox) 30 mg DAILY SUBQ 11/16/20 09:00 02/14/21 08:59 11/18/20 08:27 Haloperidol Lactate (Haldol) 5 mg Q6H PRN IM Agitation 11/06/20 21:30 12/21/20 21:29 11/18/20 11:02 Insulin Aspart (NovoLOG) BEFORE MEALS AND HS SUBQ 11/01/20 11:30 01/30/21 11:29 11/19/20 12:09 Insulin Aspart (NovoLOG) 8 units NOVOTIAC SUBQ 11/16/20 06:30 01/30/21 11:49 11/19/20 17:15 Insulin Detemir (Levemir) 6 units QHS SUBQ 11/17/20 21:00 01/30/21 08:59 11/18/20 22:20 Methimazole (Tapazole) 10 mg DAILY ORAL 11/03/20 09:00 12/03/20 08:59 11/19/20 09:33 Metoprolol Tartrate (Lopressor) 50 mg Q12HR ORAL 11/01/20 21:00 01/30/21 20:59 11/19/20 09:35 Ondansetron HCl (Zofran) 4 mg Q6H PRN IVP Nausea & Vomiting 11/07/20 16:30 12/07/20 16:29 11/07/20 17:28 Pantoprazole (Protonix) 40 mg BID ORAL 10/31/20 18:00 11/30/20 17:44 11/19/20 18:28 Sitagliptin Phosphate (Januvia) 25 mg ACBREAKFAST ORAL 11/06/20 06:30 12/06/20 06:29 11/19/20 06:05 Tamsulosin HCl (Flomax) 0.4 mg BID ORAL 11/03/20 12:00 12/03/20 11:59 11/19/20 18:28 Vitamin D (Vitamin D) 5,000 unit DAILY ORAL 11/13/20 09:00 12/13/20 08:59 11/19/20 09:34 Neurological/Psychiatric: Reports: anxiety, depressed, emotional problems; Denies: no symptoms, headache, numbness, paresthesia, pre-existing deficit, seizure, tingling, tremors, weakness, other Allergies: Coded Allergies: No Known Allergies (Unverified , 10/31/20) Objective Data Height (Feet): 5 Height (Inches): 5.00 Weight (Pounds): 150 General Appearance: no apparent distress, lethargic Additional Comments: The patient is confused, disoriented, Croatian-speaking. Mood is agitated. Affect is flat. Thought process disorganized. Thought content, no suicidal, homicidal ideation. Cognition is impaired. Insight and judgment is impaired. ASSESSMENT: Dante I Acute toxic encephalopathy. Dementia. Dante II Deferred. Dante III COVID-19. Dante IV Low. Dante V 20 PLAN: 1. We will start the patient on soft restraints. 2. Continue to follow and readjust the meds. Assessment/Plan Status: progressing, unchanged Brigido Singh MD Nov 19, 2020 20:25
--- NOTE | 2020-11-19 20:30 | NUR ---
HAND-OFF: Report given to ARPITA Amezcua. Round is made.
--- NOTE | 2020-11-19 20:31 | NUR ---
NURSE NOTES: Important Events on Shift: Received report from Tre Forbes RN. Pt in bed, awake, alert, soft restraints on B wrist for safety. Pt is English-speaking, translation by ARPITA [place]. Pt denies pain or distress at this time. No signs or symptoms of pain or distress noted. Will continue close monitoring and plan of care. Patient Status: FC Diet: Reg Pending Orders: None Pending Results/Labs: HA1C, CBC, BMP Pending MD notification: None Latest Vital Signs: Temperature 98.1 , Pulse 65 , B/P 127 /70 , Respiratory Rate 19 , O2 SAT 93 , Nasal Cannula, O2 Flow Rate 2.0 . Vital Sign Comment: EKG Rhythm: SR w/ BBB Rhythm change?: N Notified?: N Response:- Latest Bhat Fall Score: 75 Fall Risk: High Risk Safety Measures: YES Call light Within Reach, Bed Alarm Zone 1, Side Rails Side Rails x3, Bed position Low and Locked. Fall Precautions: YES Yellow Socks Yellow Gown
[2020-11-19] MEDS: Levemir Flexpen SUBQ SCH (21:00)
[2020-11-19] MEDS ORDERED: Levemir Flexpen SUBQ SCH (22:30)
[2020-11-20] VITALS: BP 127/70
--- NOTE | 2020-11-20 02:29 | Consultation ---
DATE OF CONSULTATION: 11/20/2020 NOTE: INCOMPLETE DICTATION ENDOCRINOLOGY CONSULTATION REFERRING PHYSICIAN: Corey Soto MD REASON FOR CONSULTATION: I was asked to see this 75-year-old Yi male by Dr. Corey Soto in endocrinology consultation for evaluation and management of type 2 diabetes mellitus, out of control. He is cared for by Dr. Markus Tamez. PAST MEDICAL HISTORY: The patient has a history of multiple medical problems, especially acute COVID pneumonia, which he presented on 10/31/2020. The patient has recovered well and has always been hospital since 10/31/2020. He has chronic renal insufficiency BUN 35, creatinine 3.0. He takes regular insulin 6 units at bedtime and NovoLog . REVIEW OF SYSTEMS: Noncontributory. PHYSICAL EXAMINATION: GENERAL: The patient is in no acute distress. VITAL SIGNS: Blood pressure 130/87, pulse 73, respiratory rate 17, temperature 98.2. HEAD AND NECK: Unremarkable. LUNGS: Clear. HEART: Heart sounds regular. ABDOMEN: Soft. Bowel sounds present. EXTREMITIES: No edema. NEUROLOGIC: Cranial nerves II through XII are grossly intact with toes downgoing to plantar stimulation. Stefano Chisholm M.D. DR: CHADWICK JOB#: [id number] CC:
[2020-11-20 04:00] VITALS: BP 132/72
[2020-11-20] MEDS: NovoLOG Insulin Flexpen SUBQ SCH ×7 (05:38→21:00)
[2020-11-20] MEDS: sitaGLIPtin 25mg tab ORAL SCH (06:36)
--- NOTE | 2020-11-20 06:41 | NUR ---
NURSE HAND-OFF REPORT: Important Events on Shift: Pt removed restraints and DC PIV. New PIV placed at LFA 22g SL. Bilat. soft wrist restraints reapplied. Patient Status: FC Diet: renal pureed Pending Orders: none Pending Results/Labs: HA1C, CBC, BMP Pending MD notification: none Latest Vital Signs: Temperature 97.6 , Pulse 70 , B/P 132 /72 , Respiratory Rate 18 , O2 SAT 94 , Nasal Cannula, O2 Flow Rate 2.0 . Vital Sign Comment: stable throughout shift. EKG Rhythm: Sinus Rhythm Rhythm change?: N MD Notified?: - MD Response: - Latest Bhat Fall Score: 75 Fall Risk: High Risk Safety Measures: YES Call light Within Reach, Bed Alarm Zone 1, Side Rails Side Rails x3, Bed position Low and Locked. Fall Precautions: YES Yellow Socks Yellow Gown Addendum: 11/20/20 at 0646 by Goldie Daniel RN Report TO BE given to Damir Arriola RN Addendum: 11/20/20 at 0706 by Goldie Daniel RN REPORT TO BE GIVEN TO AVINASH Vera RN
--- NOTE | 2020-11-20 07:30 | NUR ---
NURSE NOTES: Pt off restraints to eat independently. Supervised Pt from outside room by staff.
--- NOTE | 2020-11-20 07:51 | NUR ---
NURSE NOTES: Received report from ARPITA Carrera. Pt is stable and sleeping in bed. no s/s or complaints of acute distress at this time. pt IV on LFA 22 SL. skin intact. Pt bed low and locked, call light in reach and bed alarm on.
[2020-11-20 08:00] VITALS: BP 125/81
[2020-11-20 08:15] LABS: BASOPHILS % (AUTO) 0.7 % (0.0-2.0); EOSINOPHILS % (AUTO) 3.1 % (0.0-3.0); HEMATOCRIT 25.7 % (42.0-52.0); HEMOGLOBIN 8.3 G/DL (14.2-18.0); LYMPHOCYTES % (AUTO) 13.3 % (20.0-45.0); MEAN CORPUSCULAR VOLUME 93 FL (80-99); MONOCYTES % (AUTO) 6.4 % (1.0-10.0); NEUTROPHILS % (AUTO) 76.4 % (45.0-75.0); PLATELET COUNT 125 K/UL (150-450); RED BLOOD COUNT 2.76 M/UL (4.70-6.10); RED CELL DISTRIBUTION WIDTH 13.2 % (11.6-14.8)
[2020-11-20] MEDS: Tamsulosin 0.4mg cap ORAL SCH ×2 (08:24→17:04)
[2020-11-20] MEDS: Allopurinol 100mg Tab ORAL SCH (08:26)
[2020-11-20] MEDS: Vitamin D 1000 units Tab ORAL SCH (08:26)
[2020-11-20] MEDS: methIMAzole 10mg tab ORAL SCH (08:29)
[2020-11-20] MEDS: Metoprolol Tartrate 50mg tab ORAL SCH ×2 (08:29→21:00)
[2020-11-20] MEDS: dilTIAZem HCl 90mg tab ORAL SCH ×2 (08:29→17:04)
[2020-11-20] MEDS: Docusate 100mg cap ORAL SCH ×2 (08:29→17:04)
[2020-11-20] MEDS: Enoxaparin 30mg Inj SUBQ SCH (08:36)
[2020-11-20] MEDS: Amiodarone 200mg tab ORAL SCH (08:54)
[2020-11-20 09:07] LABS: CREATININE 3.1 MG/DL (0.55-1.30); POTASSIUM 4.1 MMOL/L (3.5-5.1)
--- NOTE | 2020-11-20 10:00 | NUR ---
NURSE NOTES: Pt bed alarm going off, found Pt out of restraints trying to get out of bed. Pt reoriented and changed at this time. Pt had spilled urine on self. Pt B soft restraints replaced. TV provided for distraction.
--- NOTE | 2020-11-20 10:38 | Surgery Progress Note ---
Surgery Progress Note Subjective Procedure Performed Right femoral temporary hemodialysis catheter insertion Additional Comments cr going up 3.1 today but still making urine labs noted exam stable no n/v Objective Last 24 Hour Vital Signs Date Time Temp Pulse Resp B/P (MAP) Pulse Ox O2 Delivery O2 Flow Rate FiO2 11/20/20 09:00 Room Air 11/20/20 08:29 77 125/81 11/20/20 08:29 73 125/81 11/20/20 08:00 56 11/20/20 08:00 96.8 63 19 125/81 (96) 96 11/20/20 04:00 97.6 70 18 132/72 (92) 94 11/20/20 04:00 57 11/20/20 00:00 98.1 63 19 127/70 (89) 93 11/20/20 00:00 65 11/19/20 21:00 Room Air 11/19/20 21:00 70 130/78 11/19/20 20:00 98.4 72 18 130/74 (92) 93 11/19/20 18:28 57 119/99 11/19/20 16:00 98.4 57 18 119/99 (106) 94 11/19/20 16:00 57 11/19/20 12:00 61 11/19/20 12:00 98.4 61 18 115/71 (86) 96 I&O Intake and Output 11/19/20 11/20/20 19:00 07:00 Intake Total 140 ml 300 ml Output Total 1200 ml 600 ml Balance -1060 ml -300 ml Intake Oral 140 ml 300 ml Output Urine Total 1200 ml 600 ml # Voids 3 3 Dressing: dry Cardiovascular: RSR Respiratory: decreased breath sounds Abdomen: soft, non-tender, present bowel sounds, non-distended Extremities: no edema, no tenderness, no cyanosis Laboratory Tests Test 11/19/20 11:48 11/19/20 17:06 11/19/20 21:19 11/20/20 05:31 POC Whole Blood Glucose 261 MG/DL (74-106) H 120 MG/DL (74-106) H 294 MG/DL (74-106) H 91 MG/DL (74-106) Test 11/20/20 06:45 White Blood Count 6.0 K/UL (4.8-10.8) Red Blood Count 2.76 M/UL (4.70-6.10) L Hemoglobin 8.3 G/DL (14.2-18.0) L Hematocrit 25.7 % (42.0-52.0) L Mean Corpuscular Volume 93 FL (80-99) Mean Corpuscular Hemoglobin 30.2 PG (27.0-31.0) Mean Corpuscular Hemoglobin Concent 32.4 G/DL (32.0-36.0) Red Cell Distribution Width 13.2 % (11.6-14.8) Platelet Count 125 K/UL (150-450) L Mean Platelet Volume 6.0 FL (6.5-10.1) L Neutrophils (%) (Auto) 76.4 % (45.0-75.0) H Lymphocytes (%) (Auto) 13.3 % (20.0-45.0) L Monocytes (%) (Auto) 6.4 % (1.0-10.0) Eosinophils (%) (Auto) 3.1 % (0.0-3.0) H Basophils (%) (Auto) 0.7 % (0.0-2.0) Sodium Level 139 MMOL/L (136-145) Potassium Level 4.1 MMOL/L (3.5-5.1) Chloride Level 106 MMOL/L (98-107) Carbon Dioxide Level 24 MMOL/L (21-32) Anion Gap 9 mmol/L (5-15) Blood Urea Nitrogen 32 mg/dL (7-18) H Creatinine 3.1 MG/DL (0.55-1.30) H Estimat Glomerular Filtration Rate 19.7 mL/min (>60) Glucose Level 105 MG/DL (74-106) # Hemoglobin A1c 8.5 % (4.3-6.0) H Calcium Level 8.0 MG/DL (8.5-10.1) L Plan Problems: (1) DKA (diabetic ketoacidoses) (2) Renal failure (ARF), acute on chronic Assessment & Plan: s/p temp HD line recovering renal function not stable hold on removal of line (3) COVID-19 virus infection Assessment & Plan: 75-year-old male Covid positive renal insufficiency recently had temporary dialysis catheter placement develop leukocytosis soon after. Vitals noted. Exam stable. Catheter was evaluated no acute active inflammatory or infectious process identified. Catheter is clean dry intact. The dressings are not saturated. There is no active bleeding identified. There is no signs of active infection. Leukocytosis anterior collated to medications currently given for COVID-19 infection. Will monitor closely to ensure no active dev elopment of infection or related to catheter placement. Thank you for let me participate patient's care will follow with recommendations trend leukocytosis cont dressings cont care plan as noted cont HD trend renal function (4) Rhabdomyolysis Assessment & Plan: improved resuscitated no n/v tolerating diet labs improved likely secondary to down DAILY ESTIMATED NEEDS: Needs based on DM, pulmonary 68.4kg 25-30 kcals/kg 1662-3417 total kcals 1-1.5 g protein/kg 68-102 g total protein 25-30 mL/kg 4138-2024 total fluid mLs NUTRITION DIAGNOSIS: Altered nutrition related lab values r/t DKA as evidenced by Uglu 4+ on adm, small acetone detected, BG 1087 upon adm-> now improved, A1C 8.1. CURRENT DIET: Renal/ pureed moist+ Ensure TID PO DIET RECOMMENDATIONS: RENAL/ CCHO MED diet (texture as tolerated) ADDITIONAL RECOMMENDATIONS: 1) Monitor renal fxn and lytes, continuity of HD last HD 11/08, K, phos, mag wnl 2) Monitor BGs closely for hypoglycemia w/ insulin regimen 3) Maintain calibrated bed scale wts 4) Nephrovite x 1 5) Monitor for continued improved intake - rec to decrease HPN to QD at this time. Rec Nepro (5) Diabetes mellitus out of control (6) Abnormal thyroid blood test (7) NSTEMI (non-ST elevated myocardial infarction) Norberto Steele Nov 20, 2020 10:38
--- NOTE | 2020-11-20 10:41 | Pulmonology Progress Note ---
Subjective ROS Limited/Unobtainable: Yes Interval Events: none major reported per nursing Constitutional: Denies: fever Gastrointestinal/Abdominal: Reports: diarrhea - C. diff negative Psychiatric: Reports: other - on restraint Allergies: Coded Allergies: No Known Allergies (Unverified , 10/31/20) Objective Last 24 Hour Vital Signs Date Time Temp Pulse Resp B/P (MAP) Pulse Ox O2 Delivery O2 Flow Rate FiO2 11/20/20 09:00 Room Air 11/20/20 08:29 77 125/81 11/20/20 08:29 73 125/81 11/20/20 08:00 56 11/20/20 08:00 96.8 63 19 125/81 (96) 96 11/20/20 04:00 97.6 70 18 132/72 (92) 94 11/20/20 04:00 57 11/20/20 00:00 98.1 63 19 127/70 (89) 93 11/20/20 00:00 65 11/19/20 21:00 Room Air 11/19/20 21:00 70 130/78 11/19/20 20:00 98.4 72 18 130/74 (92) 93 11/19/20 18:28 57 119/99 11/19/20 16:00 98.4 57 18 119/99 (106) 94 11/19/20 16:00 57 11/19/20 12:00 61 11/19/20 12:00 98.4 61 18 115/71 (86) 96 Intake and Output0 11/19/20 11/20/20 19:00 07:00 Intake Total 140 ml 300 ml Output Total 1200 ml 600 ml Balance -1060 ml -300 ml Intake Oral 140 ml 300 ml Output Urine Total 1200 ml 600 ml # Voids 3 3 General Appearance: WD/WN, no acute distress HEENT: atraumatic Respiratory: chest wall non-tender Cardiovascular: normal rate, regular rhythm Abdomen: soft, non tender Laboratory Tests 11/19/20 11:48: POC Whole Blood Glucose 261H 11/19/20 17:06: POC Whole Blood Glucose 120H 11/19/20 21:19: POC Whole Blood Glucose 294H 11/20/20 05:31: POC Whole Blood Glucose 91 11/20/20 06:45: White Blood Count 6.0, Red Blood Count 2.76L, Hemoglobin 8.3L, Hematocrit 25.7L, Mean Corpuscular Volume 93, Mean Corpuscular Hemoglobin 30.2, Mean Corpuscular Hemoglobin Concent 32.4, Red Cell Distribution Width 13.2, Platelet Count 125L, Mean Platelet Volume 6.0L, Neutrophils (%) (Auto) 76.4H, Lymphocytes (%) (Auto) 13.3L, Monocytes (%) (Auto) 6.4, Eosinophils (%) (Auto) 3.1H, Basophils (%) (Auto) 0.7, Sodium Level 139, Potassium Level 4.1, Chloride Level 106, Carbon Dioxide Level 24, Anion Gap 9, Blood Urea Nitrogen 32H, Creatinine 3.1H, Estimat Glomerular Filtration Rate 19.7, Glucose Level 105#, Hemoglobin A1c 8.5H, Calcium Level 8.0L Current Medications Medications (Trade) Dose Ordered Sig/Manasa Route PRN Reason Start Time Stop Time Status Last Admin Dose Admin Acetaminophen (Tylenol) 500 mg Q4H PRN ORAL For Pain 11/01/20 01:00 12/01/20 00:59 11/19/20 22:08 Acetaminophen (Tylenol) 650 mg Q4H PRN RECTAL Temp >100.5 11/01/20 21:30 12/01/20 21:29 Allopurinol (Zyloprim) 200 mg DAILY ORAL 11/01/20 16:00 12/01/20 15:59 11/20/20 08:26 Amiodarone HCl (Cordarone) 200 mg DAILY ORAL 11/10/20 09:00 02/08/21 08:59 11/20/20 08:54 Chlorhexidine Gluconate (María Elena-Hex 2%) 1 applic DAILY@1999 TOPIC 11/04/20 20:00 02/02/21 19:59 11/16/20 21:34 Clonidine HCl (Catapres Tab) 0.1 mg Q4H PRN ORAL bp over 160 syst 10/31/20 17:45 01/29/21 17:44 11/01/20 09:20 Dextrose (Dextrose 50%) 25 ml Q30M PRN IV Hypoglycemia 11/01/20 07:15 01/30/21 07:14 Dextrose (Dextrose 50%) 50 ml Q30M PRN IV Hypoglycemia 11/01/20 07:15 01/30/21 07:14 Diltiazem HCl (Cardizem Tab) 90 mg BID ORAL 11/07/20 10:15 12/02/20 17:59 11/20/20 08:29 Docusate Sodium (Colace) 100 mg TWICE A DAY ORAL 10/31/20 18:00 11/30/20 17:59 11/20/20 08:29 Enoxaparin Sodium (Lovenox) 30 mg DAILY SUBQ 11/16/20 09:00 02/14/21 08:59 11/20/20 08:36 Haloperidol Lactate (Haldol) 5 mg Q6H PRN IM Agitation 11/06/20 21:30 12/21/20 21:29 11/18/20 11:02 Insulin Aspart (NovoLOG) BEFORE MEALS AND HS SUBQ 11/01/20 11:30 01/30/21 11:29 11/19/20 21:00 Insulin Aspart (NovoLOG) 4 units NOVOTIAC SUBQ 11/20/20 06:30 02/18/21 06:29 Insulin Detemir (Levemir) 12 units QHS SUBQ 11/20/20 21:00 02/18/21 20:59 Methimazole (Tapazole) 10 mg DAILY ORAL 11/03/20 09:00 12/03/20 08:59 11/20/20 08:29 Metoprolol Tartrate (Lopressor) 50 mg Q12HR ORAL 11/01/20 21:00 01/30/21 20:59 11/20/20 08:29 Ondansetron HCl (Zofran) 4 mg Q6H PRN IVP Nausea & Vomiting 11/07/20 16:30 12/07/20 16:29 11/07/20 17:28 Pantoprazole (Protonix) 40 mg BID ORAL 10/31/20 18:00 11/30/20 17:44 11/20/20 08:24 Sitagliptin Phosphate (Januvia) 25 mg ACBREAKFAST ORAL 11/06/20 06:30 12/06/20 06:29 11/20/20 06:36 Tamsulosin HCl (Flomax) 0.4 mg BID ORAL 11/03/20 12:00 12/03/20 11:59 11/20/20 08:24 Vitamin D (Vitamin D) 5,000 unit DAILY ORAL 11/13/20 09:00 12/13/20 08:59 11/20/20 08:26 Assessment/Plan Assessment/Plan Assessment/Plan 1. Non-ST elevation myocardial infarction. - cardiology following 2. Diabetic ketoacidosis - seen by endocrinology - continue fluids - on insulin 3. Atrial flutter with rapid ventricular response. - Continue metoprolol 50 mg b.i.d. 4. COVID positive pneumonia. - s/p Decadron (11/03-11/12) - saturating at 96% on RA - CXR 11/04 developing b/l infilitrates 5. Renal failure - nephrology following - pt pulled out femoral HD cath, s/p new IJ - removal of HD line once stable 6. Accelerated hypertension. 7. Hyperthyroidism - Dr. Tamez following 8. Diarrhea - C. diff negative 9. DVT ppx - s/p Eliquis - We will restart low dose Lovenox given eGFR <30 - ok to continue if plt >50K per heme onc 10. Anemia - s/p transfusion (11/16) Medically stable for discharge from pulmonary standpoint Awaiting home health The care for this patient was discussed with my supervising physician Jose Quintana NP Nov 20, 2020 10:41
--- NOTE | 2020-11-20 11:11 | Nephrology Progress Note ---
Assessment/Plan Problem List: (1) Renal failure (ARF), acute on chronic (2) DKA (diabetic ketoacidoses) (3) COVID-19 virus infection (4) Rhabdomyolysis (5) Abnormal thyroid blood test (6) NSTEMI (non-ST elevated myocardial infarction) Assessment 75-year-old Azeri male Covid positive Acute renal failure, most likely superimposed on chronic kidney disease Diabetes mellitus, presents with severe hyperglycemia and DKA History of hypertension Plan November 20: Serum creatinine 3.1. Full code. No need for dialysis yet. Continue per consultants. November 19: Serum creatinine stable at 3. Full code. No dialysis needed. Continue per consultants. November 18: Serum creatinine 3. No need for dialysis. Remains full code. Continue as is. November 17: No labs drawn today. No dialysis since November 08. Plan to remove all of dialysis catheter. Check labs tomorrow if in-house. November 16: Labs reviewed. Serum creatinine lower 2.9. No need for dialysis catheter anymore. Continue as is. November 15: Labs reviewed. Serum creatinine unchanged. Calculated creatinine clearance 19 mL/h. No dialysis needed at this time. November 14: Lab reviewed. Serum creatinine 3.2 unchanged. No need for dialy sis. Continue per consultants. November 13: Lab reviewed. Serum creatinine 3.2. No need for dialysis today. Continue to monitor renal parameters. Continue per consultants. November 12: Labs reviewed. Serum creatinine 3. No dialysis needed today. Cont inue to monitor renal parameters. November 11: Labs reviewed. Serum creatinine higher. Due for placement of a Nontunneled catheter today. We will schedule dialysis as needed. Patient's leukocytosis gradually improving. November 10: Lab reviewed. Serum creatinine rising. We will proceed with placement of a nontunneled catheter tomorrow and dialysis. Patient has leukocytosis at this time. Continue per consultants. November 09: Labs reviewed. Patient was dialyzed yesterday. Patient pulled out the dialysis catheter last night. Renal parameters stable. Continue to monitor and if dialysis needed to place a new temporary catheter. Per orders. November 08: Labs reviewed. Serum creatinine is plateauing. Due for dialysis today. We will continue to monitor renal parameters and dialysis as needed. November 07: Labs reviewed. Serum creatinine rising. IV fluid discontinued. Dialysis for tomorrow. Continue per consultants. November 06: Labs reviewed. Blood pressure stable. Medication list reviewed. Dialysis as needed. November 05: Due for dialysis today. Labs are reviewed. Blood pressure is stable. Continue to monitor renal parameters. November 04: Patient was dialyzed yesterday. 1 L ultrafiltrated. Labs reviewed. Renal parameters stable. Will attempt dialysis again tomorrow. Medication list reviewed. November 03: Labs reviewed. Serum creatinine rising. Patient has hematuria. Aaron estevez on Eliquis. Will arrange for placement of dialysis catheter and attempt to dialyze. Will start Flomax since the patient could not have a Anand catheter. Continue to monitor renal parameters. Continue per consultants. Discussed with RN. Consent for placement of nontunneled catheter ordered. Patient is also on Tapazole for high thyroid hormone. CPK is lowering. November 02: Labs reviewed. Serum creatinine up to 4. In S DU now. On Cardizem drip. Measured creatinine clearance . Patient may lead towards dialysis. Continue to monitor renal parameters. November 01: Renal parameters improving. Blood sugar is improving. Continue to monitor electrolytes renal parameters and urine output. Aim to control blood sugar and blood pressure. Avoid nephrotoxic's. Monitor CPK as it is elevated. Previously: Anand catheter Blood sugar control Slow hydration Monitor renal parameters Kidney ultrasound no hydronephrosis 2D echocardiogram ejection fraction 60 to 65%. Per orders Subjective ROS Limited/Unobtainable: No Constitutional: Reports: malaise Objective Objective Last 24 Hour Vital Signs Date Time Temp Pulse Resp B/P (MAP) Pulse Ox O2 Delivery O2 Flow Rate FiO2 11/20/20 09:00 Room Air 11/20/20 08:29 77 125/81 11/20/20 08:29 73 125/81 11/20/20 08:00 56 11/20/20 08:00 96.8 63 19 125/81 (96) 96 11/20/20 04:00 97.6 70 18 132/72 (92) 94 11/20/20 04:00 57 11/20/20 00:00 98.1 63 19 127/70 (89) 93 11/20/20 00:00 65 11/19/20 21:00 Room Air 11/19/20 21:00 70 130/78 11/19/20 20:00 98.4 72 18 130/74 (92) 93 11/19/20 18:28 57 119/99 11/19/20 16:00 98.4 57 18 119/99 (106) 94 11/19/20 16:00 57 11/19/20 12:00 61 11/19/20 12:00 98.4 61 18 115/71 (86) 96 Intake and Output 11/19/20 11/20/20 19:00 07:00 Intake Total 140 ml 300 ml Output Total 1200 ml 600 ml Balance -1060 ml -300 ml Intake Oral 140 ml 300 ml Output Urine Total 1200 ml 600 ml # Voids 3 3 Current Medications Medications (Trade) Dose Ordered Sig/Manasa Route PRN Reason Start Time Stop Time Status Last Admin Dose Admin Acetaminophen (Tylenol) 500 mg Q4H PRN ORAL For Pain 11/01/20 01:00 12/01/20 00:59 11/19/20 22:08 Acetaminophen (Tylenol) 650 mg Q4H PRN RECTAL Temp >100.5 11/01/20 21:30 12/01/20 21:29 Allopurinol (Zyloprim) 200 mg DAILY ORAL 11/01/20 16:00 12/01/20 15:59 11/20/20 08:26 Amiodarone HCl (Cordarone) 200 mg DAILY ORAL 11/10/20 09:00 02/08/21 08:59 11/20/20 08:54 Chlorhexidine Gluconate (María Elena-Hex 2%) 1 applic DAILY@2000 TOPIC 11/04/20 20:00 02/02/21 19:59 11/16/20 21:34 Clonidine HCl (Catapres Tab) 0.1 mg Q4H PRN ORAL bp over 160 syst 10/31/20 17:45 01/29/21 17:44 11/01/20 09:20 Dextrose (Dextrose 50%) 25 ml Q30M PRN IV Hypoglycemia 11/01/20 07:15 01/30/21 07:14 Dextrose (Dextrose 50%) 50 ml Q30M PRN IV Hypoglycemia 11/01/20 07:15 01/30/21 07:14 Diltiazem HCl (Cardizem Tab) 90 mg BID ORAL 11/07/20 10:15 12/02/20 17:59 11/20/20 08:29 Docusate Sodium (Colace) 100 mg TWICE A DAY ORAL 10/31/20 18:00 11/30/20 17:59 11/20/20 08:29 Enoxaparin Sodium (Lovenox) 30 mg DAILY SUBQ 11/16/20 09:00 02/14/21 08:59 11/20/20 08:36 Haloperidol Lactate (Haldol) 5 mg Q6H PRN IM Agitation 11/06/20 21:30 12/21/20 21:29 11/18/20 11:02 Insulin Aspart (NovoLOG) BEFORE MEALS AND HS SUBQ 11/01/20 11:30 01/30/21 11:29 11/19/20 21:00 Insulin Aspart (NovoLOG) 4 units NOVOTIAC SUBQ 11/20/20 06:30 02/18/21 06:29 Insulin Detemir (Levemir) 12 units QHS SUBQ 11/20/20 21:00 02/18/21 20:59 Methimazole (Tapazole) 10 mg DAILY ORAL 11/03/20 09:00 12/03/20 08:59 11/20/20 08:29 Metoprolol Tartrate (Lopressor) 50 mg Q12HR ORAL 11/01/20 21:00 01/30/21 20:59 11/20/20 08:29 Ondansetron HCl (Zofran) 4 mg Q6H PRN IVP Nausea & Vomiting 11/07/20 16:30 12/07/20 16:29 11/07/20 17:28 Pantoprazole (Protonix) 40 mg BID ORAL 10/31/20 18:00 11/30/20 17:44 11/20/20 08:24 Sitagliptin Phosphate (Januvia) 25 mg ACBREAKFAST ORAL 11/06/20 06:30 12/06/20 06:29 11/20/20 06:36 Tamsulosin HCl (Flomax) 0.4 mg BID ORAL 11/03/20 12:00 12/03/20 11:59 11/20/20 08:24 Vitamin D (Vitamin D) 5,000 unit DAILY ORAL 11/13/20 09:00 12/13/20 08:59 11/20/20 08:26 Laboratory Tests 11/19/20 11:48: POC Whole Blood Glucose 261H 11/19/20 17:06: POC Whole Blood Glucose 120H 11/19/20 21:19: POC Whole Blood Glucose 294H 11/20/20 05:31: POC Whole Blood Glucose 91 11/20/20 06:45: White Blood Count 6.0, Red Blood Count 2.76L, Hemoglobin 8.3L, Hematocrit 25.7L, Mean Corpuscular Volume 93, Mean Corpuscular Hemoglobin 30.2, Mean Corpuscular Hemoglobin Concent 32.4, Red Cell Distribution Width 13.2, Platelet Count 125L, Mean Platelet Volume 6.0L, Neutrophils (%) (Auto) 76.4H, Lymphocytes (%) (Auto) 13.3L, Monocytes (%) (Auto) 6.4, Eosinophils (%) (Auto) 3.1H, Basophils (%) (Auto) 0.7, Sodium Level 139, Potassium Level 4.1, Chloride Level 106, Carbon Dioxide Level 24, Anion Gap 9, Blood Urea Nitrogen 32H, Creatinine 3.1H, Estimat Glomerular Filtration Rate 19.7, Glucose Level 105#, Hemoglobin A1c 8.5H, Calcium Level 8.0L Height (Feet): 5 Height (Inches): 5.00 Weight (Pounds): 150 Cardiovascular: normal rate Respiratory/Chest: decreased breath sounds Abdomen: soft Garth Buckley MD Nov 20, 2020 11:11
[2020-11-20 12:00] VITALS: BP 129/91
--- NOTE | 2020-11-20 15:51 | Cardiac Electrophysiology PN ---
Assessment/Plan Assessment/Plan 1. NSTEMI with troponin of 0.25 and 0.35 in this patient with DKA as well as atrial flutter with rapid ventricular response. On metoprolol 50 mg b.i.d. EF 65% 2. Atrial flutter with RVR On metoprolol 50 mg bid, Cardizem 90 bid and Amiodarone 200 po daily Off Eliquis for hematuria 3. Diabetic ketoacidosis with glucose of more than 1000. 4. Hypertension. On Lopressor 50 bid and Cardizem 90 bid 5. COVID positive pneumonia. 6. Acute Renal failure in the setting of total CK of 1900, maybe rhabdomyolysis- induced renal failure. On HD via RFV Yazan by Dr. Buckley. RFV Yazan pulled out by patient. S/P New RIJ Yazan on 11/11/20 that was then removed on 11/17 as no more need for HD 7. Anemia. S/P PRBC 11/16 DW RN Subjective Subjective Pulled out his RFV Yazan catheter on 11/08/20. S/P new Yazan catheter placement 11/11/20. R IJ HD catheter removed 11/17/20 S/P PRBC In restraints On RA In SR on Amio, Cardizem and metoprolol. Off Eliquis due to hematuria SNIF vs home with HH pending Objective Last 24 Hour Vital Signs Date Time Temp Pulse Resp B/P (MAP) Pulse Ox O2 Delivery O2 Flow Rate FiO2 11/20/20 12:00 68 11/20/20 12:00 98.7 87 20 129/91 (104) 97 11/20/20 09:00 Room Air 11/20/20 08:29 77 125/81 11/20/20 08:29 73 125/81 11/20/20 08:00 56 11/20/20 08:00 96.8 63 19 125/81 (96) 96 11/20/20 04:00 97.6 70 18 132/72 (92) 94 11/20/20 04:00 57 11/20/20 00:00 98.1 63 19 127/70 (89) 93 11/20/20 00:00 65 11/19/20 21:00 Room Air 11/19/20 21:00 70 130/78 11/19/20 20:00 98.4 72 18 130/74 (92) 93 11/19/20 18:28 57 119/99 11/19/20 16:00 98.4 57 18 119/99 (106) 94 11/19/20 16:00 57 Intake and Output 11/19/20 11/20/20 19:00 07:00 Intake Total 140 ml 300 ml Output Total 1200 ml 600 ml Balance -1060 ml -300 ml Intake Oral 140 ml 300 ml Output Urine Total 1200 ml 600 ml # Voids 3 3 Laboratory Tests Test 11/19/20 17:06 11/19/20 21:19 11/20/20 05:31 11/20/20 06:45 POC Whole Blood Glucose 120 MG/DL (74-106) H 294 MG/DL (74-106) H 91 MG/DL (74-106) White Blood Count 6.0 K/UL (4.8-10.8) Red Blood Count 2.76 M/UL (4.70-6.10) L Hemoglobin 8.3 G/DL (14.2-18.0) L Hematocrit 25.7 % (42.0-52.0) L Mean Corpuscular Volume 93 FL (80-99) Mean Corpuscular Hemoglobin 30.2 PG (27.0-31.0) Mean Corpuscular Hemoglobin Concent 32.4 G/DL (32.0-36.0) Red Cell Distribution Width 13.2 % (11.6-14.8) Platelet Count 125 K/UL (150-450) L Mean Platelet Volume 6.0 FL (6.5-10.1) L Neutrophils (%) (Auto) 76.4 % (45.0-75.0) H Lymphocytes (%) (Auto) 13.3 % (20.0-45.0) L Monocytes (%) (Auto) 6.4 % (1.0-10.0) Eosinophils (%) (Auto) 3.1 % (0.0-3.0) H Basophils (%) (Auto) 0.7 % (0.0-2.0) Sodium Level 139 MMOL/L (136-145) Potassium Level 4.1 MMOL/L (3.5-5.1) Chloride Level 106 MMOL/L (98-107) Carbon Dioxide Level 24 MMOL/L (21-32) Anion Gap 9 mmol/L (5-15) Blood Urea Nitrogen 32 mg/dL (7-18) H Creatinine 3.1 MG/DL (0.55-1.30) H Estimat Glomerular Filtration Rate 19.7 mL/min (>60) Glucose Level 105 MG/DL (74-106) # Hemoglobin A1c 8.5 % (4.3-6.0) H Calcium Level 8.0 MG/DL (8.5-10.1) L Test 11/20/20 11:19 POC Whole Blood Glucose 295 MG/DL (74-106) H Objective HEAD AND NECK: No JVD. LUNGS: Clear. CARDIOVASCULAR: Shows regular S1 and S2 with no gallop. ABDOMEN: Soft. EXTREMITIES: Right IJ Yazan is removed. No pitting edema. Sivakumar Escalante MD Nov 20, 2020 15:51
[2020-11-20 16:00] VITALS: BP 135/77
--- NOTE | 2020-11-20 17:49 | NUR ---
NURSE HAND-OFF REPORT: Important Events on Shift: Patient Status: fc, stable Diet: puree renal, pills ok Pending Orders: Pending Results/Labs: Pending MD notification: Latest Vital Signs: Temperature 97.4 , Pulse 69 , B/P 135 /77 , Respiratory Rate 18 , O2 SAT 98 , Nasal Cannula, O2 Flow Rate 2.0 . Vital Sign Comment: EKG Rhythm: SR w/ AVB1 Rhythm change?: Amari ANDERSON Notified?: Amari Sawyer MD Response: Message left await call Latest Bhat Fall Score: 50 Fall Risk: High Risk Safety Measures: Call light Within Reach, Bed Alarm Zone 1, Side Rails Side Rails x3, Bed position Low and Locked. Fall Precautions: Yellow Socks Yellow Gown Report to be given. Addendum: 11/20/20 at 1934 by Barbie Em RN RN Pt is stable, plan of care endorsed to ARPITA Carrera.
--- NOTE | 2020-11-20 18:09 | NUR ---
NURSE NOTES: Contacted Dr Singh regarding restrain discontinuation because Pt has been calm majority of day. Per Dr Rodriguez, continue to be safe. Addendum: 11/20/20 at 1810 by Barbie Em RN RN order acknowledged and carried out
--- NOTE | 2020-11-20 19:10 | NUR ---
NURSE NOTES: Important Events on Shift: Received report from Barbie Vera RN. Pt in bed, soft restrained at bilat. wrist. Pt denies pain, no signs or symptoms of distress noted. Pt stable throughout shift per report. Will continue plan of care and close monitoring. Patient Status: FC Diet: renal pureed Pending Orders: none Pending Results/Labs: none Pending MD notification: none Latest Vital Signs: Temperature 98.0 , Pulse 52 , B/P 114 /46 , Respiratory Rate 20 , O2 SAT 94 , Nasal Cannula, O2 Flow Rate 2.0 . Vital Sign Comment: stable throughout shift per report. EKG Rhythm: SR w/ 1AVB Rhythm change?: N Notified?: Amari Sawyer MD Response: No new orders received Latest Bhat Fall Score: 75 Fall Risk: High Risk Safety Measures: Call light Within Reach, Bed Alarm Zone 1, Side Rails Side Rails x3, Bed position Low and Locked. Fall Precautions: YES Yellow Socks YES Yellow Gown
[2020-11-20 20:00] VITALS: BP 114/46
[2020-11-20] MEDS: Dyna-Hex 2% Top Sol 2oz TOPIC SCH (20:00)
--- NOTE | 2020-11-20 20:12 | General Progress Note ---
Subjective ROS Limited/Unobtainable: Yes Allergies: Coded Allergies: No Known Allergies (Unverified , 10/31/20) Objective Last 24 Hour Vital Signs Date Time Temp Pulse Resp B/P (MAP) Pulse Ox O2 Delivery O2 Flow Rate FiO2 11/20/20 17:04 69 135/77 11/20/20 16:00 97.4 81 18 135/77 (96) 98 11/20/20 16:00 63 11/20/20 12:00 68 11/20/20 12:00 98.7 87 20 129/91 (104) 97 11/20/20 09:00 Room Air 11/20/20 08:29 77 125/81 11/20/20 08:29 73 125/81 11/20/20 08:00 56 11/20/20 08:00 96.8 63 19 125/81 (96) 96 11/20/20 04:00 97.6 70 18 132/72 (92) 94 11/20/20 04:00 57 11/20/20 00:00 98.1 63 19 127/70 (89) 93 11/20/20 00:00 65 11/19/20 21:00 Room Air 11/19/20 21:00 70 130/78 Intake and Output 11/19/20 11/20/20 19:00 07:00 Intake Total 140 ml 300 ml Output Total 1200 ml 600 ml Balance -1060 ml -300 ml Intake Oral 140 ml 300 ml Output Urine Total 1200 ml 600 ml # Voids 3 3 Laboratory Tests 11/19/20 21:19: POC Whole Blood Glucose 294H 11/20/20 05:31: POC Whole Blood Glucose 91 11/20/20 06:45: White Blood Count 6.0, Red Blood Count 2.76L, Hemoglobin 8.3L, Hematocrit 25.7L, Mean Corpuscular Volume 93, Mean Corpuscular Hemoglobin 30.2, Mean Corpuscular Hemoglobin Concent 32.4, Red Cell Distribution Width 13.2, Platelet Count 125L, Mean Platelet Volume 6.0L, Neutrophils (%) (Auto) 76.4H, Lymphocytes (%) (Auto) 13.3L, Monocytes (%) (Auto) 6.4, Eosinophils (%) (Auto) 3.1H, Basophils (%) (Auto) 0.7, Sodium Level 139, Potassium Level 4.1, Chloride Level 106, Carbon Dioxide Level 24, Anion Gap 9, Blood Urea Nitrogen 32H, Creatinine 3.1H, Estimat Glomerular Filtration Rate 19.7, Glucose Level 105#, Hemoglobin A1c 8.5H, Calciu m Level 8.0L 11/20/20 11:19: POC Whole Blood Glucose 295H 11/20/20 16:16: POC Whole Blood Glucose 297H Height (Feet): 5 Height (Inches): 5.00 Weight (Pounds): 150 Assessment/Plan Problem List: (1) Renal failure (ARF), acute on chronic ICD Codes: N17.9 - Acute kidney failure, unspecified; N18.9 - Chronic kidney disease, unspecified SNOMED: 081412367 (2) DKA (diabetic ketoacidoses) ICD Codes: E11.10 - Type 2 diabetes mellitus with ketoacidosis without coma SNOMED: 448591611, 02969817 (3) COVID-19 virus infection ICD Codes: U07.1 - COVID-19 SNOMED: 230385304 (4) Rhabdomyolysis ICD Codes: M62.82 - Rhabdomyolysis SNOMED: 401129643 (5) Diabetes mellitus out of control ICD Codes: E11.65 - Type 2 diabetes mellitus with hyperglycemia SNOMED: 76638455, 048590859 (6) Abnormal thyroid blood test ICD Codes: R79.89 - Other specified abnormal findings of blood chemistry SNOMED: 004286682, 516604774434838 (7) NSTEMI (non-ST elevated myocardial infarction) ICD Codes: I21.4 - Non-ST elevation (NSTEMI) myocardial infarction SNOMED: 30089353 Status: progressing, unchanged Assessment/Plan: covid + weak and debilitated sepsis reviewed chart and labs dc planning Corey Soto MD Nov 20, 2020 20:12
[2020-11-20] MEDS ORDERED: Levemir Flexpen SUBQ SCH (21:00)
[2020-11-21] VITALS: BP 114/46
[2020-11-21 04:00] VITALS: BP 126/58
--- NOTE | 2020-11-21 04:00 | NUR ---
NURSE NOTES: Received report from Debi PALM. Pt in bed restless and aggressive yelling at nurses. Patient is Mohawk speaking only. Sort Bilateral wrist restraints in place soft restrained, pules are noted, no bruising or swelling noted. Patient on room air. no signs or symptoms of distress noted. Iv on left FA 22 Saline lock. patent flush. no bleeding or bruising noted. Patient is able to use urinal with monitoring. Will continue plan of care and close monitoring.
--- NOTE | 2020-11-21 05:25 | NUR ---
NURSE NOTES: Speaking to [place], family want to fallow Dr. Soto recommendation for discharge in order to get PT/OT.
[2020-11-21] MEDS: sitaGLIPtin 25mg tab ORAL SCH (06:29)
[2020-11-21] MEDS: NovoLOG Insulin Flexpen SUBQ SCH ×7 (06:30→20:19)
--- NOTE | 2020-11-21 06:30 | NUR ---
CASE MANAGEMENT:REVIEW 11/21/20 SI: NSTEMI. COVID PNA. RENAL FAILURE 98.0 52 20 114/46 94% ON RA IS: LEVEMIR SQ QHS NOVOLOG SQ TID LOVENOX SQ QD VIT D PO QD AMIODARONE PO QD CARDIZEM PO BID JANUVIA PO QAM FLOMAX PO BID TAPAZOLE PO QD LOPRESSOR PO Q12 ALLOPURINOL PO QD PROTONIX PO BID : TELEMETRY STATUS DCP: FROM HOME PLAN: REFER TO SNF FOR SHORT STAY OT/PT REFERRED TO [facility]
[2020-11-21] MEDS: Haloperidol 5mg/ml Inj IM PRN (06:31)
--- NOTE | 2020-11-21 06:35 | General Progress Note ---
Subjective ROS Limited/Unobtainable: Yes Allergies: Coded Allergies: No Known Allergies (Unverified , 10/31/20) Subjective events noted interval notes reviewed glucose values on higher side Item Value Date Time Bedside Blood Glucose 200 mg/dl H 11/21/20 0630 Bedside Blood Glucose 231 mg/dl H 11/20/20 2100 Bedside Blood Glucose 297 mg/dl H 11/20/20 1630 Bedside Blood Glucose 295 mg/dl H 11/20/20 1142 Bedside Blood Glucose 91 mg/dl 11/20/20 0541 Objective Last 24 Hour Vital Signs Date Time Temp Pulse Resp B/P (MAP) Pulse Ox O2 Delivery O2 Flow Rate FiO2 11/21/20 04:00 66 11/21/20 00:00 98.0 52 20 114/46 (68) 94 11/21/20 00:00 74 11/20/20 21:00 Room Air 11/20/20 21:00 52 112/46 11/20/20 20:00 68 11/20/20 20:00 98.0 52 20 114/46 (68) 94 11/20/20 17:04 69 135/77 11/20/20 16:00 97.4 81 18 135/77 (96) 98 11/20/20 16:00 63 11/20/20 12:00 68 11/20/20 12:00 98.7 87 20 129/91 (104) 97 11/20/20 09:00 Room Air 11/20/20 08:29 77 125/81 11/20/20 08:29 73 125/81 11/20/20 08:00 56 11/20/20 08:00 96.8 63 19 125/81 (96) 96 Intake and Output 11/20/20 11/21/20 19:00 07:00 Intake Total 900 ml 240 ml Output Total 800 ml 400 ml Balance 100 ml -160 ml Intake Oral 900 ml 240 ml Output Urine Total 800 ml 400 ml # Voids 5 2 Laboratory Tests 11/20/20 06:45: White Blood Count 6.0, Red Blood Count 2.76L, Hemoglobin 8.3L, Hematocrit 25.7L, Mean Corpuscular Volume 93, Mean Corpuscular Hemoglobin 30.2, Mean Corpuscular Hemoglobin Concent 32.4, Red Cell Distribution Width 13.2, Platelet Count 125L, Mean Platelet Volume 6.0L, Neutrophils (%) (Auto) 76.4H, Lymphocytes (%) (Auto) 13.3L, Monocytes (%) (Auto) 6.4, Eosinophils (%) (Auto) 3.1H, Basophils (%) (Auto) 0.7, Sodium Level 139, Potassium Level 4.1, Chloride Level 106, Carbon Dioxide Level 24, Anion Gap 9, Blood Urea Nitrogen 32H, Creatinine 3.1H, Estimat Glomerular Filtration Rate 19.7, Glucose Level 105#, Hemoglobin A1c 8.5H, Calcium Level 8.0L 11/20/20 11:19: POC Whole Blood Glucose 295H 11/20/20 16:16: POC Whole Blood Glucose 297H 11/20/20 21:48: POC Whole Blood Glucose 231H 11/21/20 06:26: POC Whole Blood Glucose 200H Height (Feet): 5 Height (Inches): 5.00 Weight (Pounds): 150 Objective Current Medications Medications (Trade) Dose Ordered Sig/Manasa Route PRN Reason Start Time Stop Time Status Last Admin Dose Admin Acetaminophen (Tylenol) 500 mg Q4H PRN ORAL For Pain 11/01/20 01:00 12/01/20 00:59 11/19/20 22:08 Acetaminophen (Tylenol) 650 mg Q4H PRN RECTAL Temp >100.5 11/01/20 21:30 12/01/20 21:29 Allopurinol (Zyloprim) 200 mg DAILY ORAL 11/01/20 16:00 12/01/20 15:59 11/20/20 08:26 Amiodarone HCl (Cordarone) 200 mg DAILY ORAL 11/10/20 09:00 02/08/21 08:59 11/20/20 08:54 Chlorhexidine Gluconate (María Elena-Hex 2%) 1 applic DAILY@1999 TOPIC 11/04/20 20:00 02/02/21 19:59 11/16/20 21:34 Clonidine HCl (Catapres Tab) 0.1 mg Q4H PRN ORAL bp over 160 syst 10/31/20 17:45 01/29/21 17:44 11/01/20 09:20 Dextrose (Dextrose 50%) 25 ml Q30M PRN IV Hypoglycemia 11/01/20 07:15 01/30/21 07:14 Dextrose (Dextrose 50%) 50 ml Q30M PRN IV Hypoglycemia 11/01/20 07:15 01/30/21 07:14 Diltiazem HCl (Cardizem Tab) 90 mg BID ORAL 11/07/20 10:15 12/02/20 17:59 11/20/20 17:04 Docusate Sodium (Colace) 100 mg TWICE A DAY ORAL 10/31/20 18:00 11/30/20 17:59 11/20/20 17:04 Enoxaparin Sodium (Lovenox) 30 mg DAILY SUBQ 11/16/20 09:00 02/14/21 08:59 11/20/20 08:36 Haloperidol Lactate (Haldol) 5 mg Q6H PRN IM Agitation 11/06/20 21:30 12/21/20 21:29 11/18/20 11:02 Insulin Aspart (NovoLOG) BEFORE MEALS AND HS SUBQ 11/01/20 11:30 01/30/21 11:29 11/21/20 06:30 Insulin Aspart (NovoLOG) 4 units NOVOTIAC SUBQ 11/20/20 06:30 02/18/21 06:29 11/20/20 16:20 Insulin Detemir (Levemir) 12 units QHS SUBQ 11/20/20 21:00 02/18/21 20:59 11/20/20 21:00 Methimazole (Tapazole) 10 mg DAILY ORAL 11/03/20 09:00 12/03/20 08:59 11/20/20 08:29 Metoprolol Tartrate (Lopressor) 50 mg Q12HR ORAL 11/01/20 21:00 01/30/21 20:59 11/20/20 08:29 Ondansetron HCl (Zofran) 4 mg Q6H PRN IVP Nausea & Vomiting 11/07/20 16:30 12/07/20 16:29 11/07/20 17:28 Pantoprazole (Protonix) 40 mg BID ORAL 10/31/20 18:00 11/30/20 17:44 11/20/20 17:04 Sitagliptin Phosphate (Januvia) 25 mg ACBREAKFAST ORAL 11/06/20 06:30 12/06/20 06:29 11/21/20 06:29 Tamsulosin HCl (Flomax) 0.4 mg BID ORAL 11/03/20 12:00 12/03/20 11:59 11/20/20 17:04 Vitamin D (Vitamin D) 5,000 unit DAILY ORAL 11/13/20 09:00 12/13/20 08:59 11/20/20 08:26 Assessment/Plan Problem List: (1) Abnormal thyroid blood test ICD Codes: R79.89 - Other specified abnormal findings of blood chemistry SNOMED: 237818838, 373886522186015 (2) Diabetes mellitus out of control ICD Codes: E11.65 - Type 2 diabetes mellitus with hyperglycemia SNOMED: 80455956, 028786979 (3) Renal failure (ARF), acute on chronic ICD Codes: N17.9 - Acute kidney failure, unspecified; N18.9 - Chronic kidney disease, unspecified SNOMED: 174210191 (4) COVID-19 virus infection ICD Codes: U07.1 - COVID-19 SNOMED: 589721888 (5) DKA (diabetic ketoacidoses) ICD Codes: E11.10 - Type 2 diabetes mellitus with ketoacidosis without coma SNOMED: 025279225, 43739726 (6) NSTEMI (non-ST elevated myocardial infarction) ICD Codes: I21.4 - Non-ST elevation (NSTEMI) myocardial infarction SNOMED: 50854544 Status: progressing, unchanged Assessment/Plan: increase Levemir 12 to 15 units qhs increase Novolog 4 to 5 units ac tid continue Novolog sliding scale ac hs continue Januvia 25 mg daily repeat thyroid function continue Tapazole 10 mg daily TSI pending Markus Tamez MD Nov 21, 2020 06:35
--- NOTE | 2020-11-21 07:44 | NUR ---
NURSE HAND-OFF REPORT: Important Events on Shift:Speaking to Moose, family want to fallow Dr. Soto recommendation for discharge in order to get PT/OT. Patient Status: No SOB noted Diet: Renal puree pill ok Pending Orders: Pending Results/Labs: Pending MD notification: Latest Vital Signs: Temperature 98.8 , Pulse 72 , B/P 126 /58 , Respiratory Rate 18 , O2 SAT 96 , Nasal Cannula, O2 Flow Rate 2.0 . Vital Sign Comment: EKG Rhythm: SR w/ 1AVB Rhythm change?: N Notified?: Amari Sawyer MD Response: Message left await call Latest Bhat Fall Score: 75 Fall Risk: High Risk Safety Measures: Call light Within Reach, Bed Alarm Zone 1, Side Rails Side Rails x3, Bed position Low and Locked. Fall Precautions: Yellow Socks Yellow Gown Report given to Reji PALM .
--- NOTE | 2020-11-21 07:54 | NUR ---
NURSE NOTES: Patient seen in bed in low fowlers position, asleep with no acute signs of distress. The patient is on room air with oxygen saturation within normal limits. Patient has a R wrist 22G IV that is saline locked, clean patent and intact. The patient has bilateral wrist soft restraints on with normal neurovascular assessment. the patients bed is in lowest position, locked, side rails x3, bed alarm in zone 1 and call light within reach. Patient instructed to press call light for further needs.
[2020-11-21 08:00] VITALS: BP 121/57
[2020-11-21] MEDS: Vitamin D 1000 units Tab ORAL SCH (08:34)
[2020-11-21] MEDS: Docusate 100mg cap ORAL SCH ×2 (08:35→17:08)
[2020-11-21] MEDS: Allopurinol 100mg Tab ORAL SCH (08:35)
[2020-11-21] MEDS: Amiodarone 200mg tab ORAL SCH (08:35)
[2020-11-21] MEDS: Tamsulosin 0.4mg cap ORAL SCH ×2 (08:36→17:09)
[2020-11-21] MEDS: methIMAzole 10mg tab ORAL SCH (08:36)
[2020-11-21] MEDS: Metoprolol Tartrate 50mg tab ORAL SCH ×2 (08:37→20:10)
[2020-11-21] MEDS: dilTIAZem HCl 90mg tab ORAL SCH ×2 (08:39→17:10)
[2020-11-21] MEDS: Enoxaparin 30mg Inj SUBQ SCH (08:39)
--- NOTE | 2020-11-21 09:16 | Nephrology Progress Note ---
Assessment/Plan Problem List: (1) Renal failure (ARF), acute on chronic (2) DKA (diabetic ketoacidoses) (3) COVID-19 virus infection (4) Rhabdomyolysis (5) Abnormal thyroid blood test (6) NSTEMI (non-ST elevated myocardial infarction) Assessment 75-year-old [place] male Covid positive Acute renal failure, most likely superimposed on chronic kidney disease Diabetes mellitus, presents with severe hyperglycemia and DKA History of hypertension Plan November 21: No chemistry panel done today. Status quo. Patient remains full code. Continue to monitor renal parameters. Continue per consultants. November 20: Serum creatinine 3.1. Full code. No need for dialysis yet. Continue per consultants. November 19: Serum creatinine stable at 3. Full code. No dialysis needed. Continue per consultants. November 18: Serum creatinine 3. No need for dialysis. Remains full code. Continue as is. November 17: No labs drawn today. No dialysis since November 08. Plan to remove all of dialysis catheter. Check labs tomorrow if in-house. November 16: Labs reviewed. Serum creatinine lower 2.9. No need for dialysis catheter anymore. Continue as is. November 15: Labs reviewed. Serum creatinine unchanged. Calculated creatinine clearance 19 mL/h. No dialysis needed at this time. November 14: Lab reviewed. Serum creatinine 3.2 unchanged. No need for dialysis. Continue per consultants. November 13: Lab reviewed. Serum creatinine 3.2. No need for dialysis today. Continue to monitor renal parameters. Continue per consultants. November 12: Labs reviewed. Serum creatinine 3. No dialysis needed today. Continue to monitor renal parameters. November 11: Labs reviewed. Serum creatinine higher. Due for placement of a Nontunneled catheter today. We will schedule dialysis as needed. Patient's leukocytosis gradually improving. November 10: Lab reviewed. Serum creatinine rising. We will proceed with placement of a nontunneled catheter tomorrow and dialysis. Patient has leukocytosis at this time. Continue per consultants. November 09: Labs reviewed. Patient was dialyzed yesterday. Patient pulled out the dialysis catheter last night. Renal parameters stable. Continue to monitor and if dialysis needed to place a new temporary catheter. Per orders. November 08: Labs reviewed. Serum creatinine is plateauing. Due for dialysis today. We will continue to monitor renal parameters and dialysis as needed. November 07: Labs reviewed. Serum creatinine rising. IV fluid discontinued. Dialysis for tomorrow. Continue per consultants. November 06: Labs reviewed. Blood pressure stable. Medication list reviewed. Dialysis as needed. November 05: Due for dialysis today. Labs are reviewed. Blood pressure is stable. Continue to monitor renal parameters. November 04: Patient was dialyzed yesterday. 1 L ultrafiltrated. Labs reviewed. Renal parameters stable. Will attempt dialysis again tomorrow. Medication list reviewed. November 03: Labs reviewed. Serum creatinine rising. Patient has hematuria. Patient on Eliquis. Will arrange for placement of dialysis catheter and attempt to dialyze. Will start Flomax since the patient could not have a Anand catheter. Continue to monitor renal parameters. Continue per consultants. Discussed with RN. Consent for placement of nontunneled catheter ordered. Patient is also on Tapazole for high thyroid hormone. CPK is lowering. November 02: Labs reviewed. Serum creatinine up to 4. In S DU now. On Cardizem drip. Measured creatinine clearance . Patient may lead towards dialysis. Continue to monitor renal parameters. November 01: Renal parameters improving. Blood sugar is improving. Continue to monitor electrolytes renal parameters and urine output. Aim to control blood sugar and blood pressure. Avoid nephrotoxic's. Monitor CPK as it is elevated. Previously: Anand catheter Blood sugar control Slow hydration Monitor renal parameters Kidney ultrasound no hydronephrosis 2D echocardiogram ejection fraction 60 to 65%. Per orders Subjective ROS Limited/Unobtainable: No Constitutional: Reports: malaise, weakness Objective Objective Last 24 Hour Vital Signs Date Time Temp Pulse Resp B/P (MAP) Pulse Ox O2 Delivery O2 Flow Rate FiO2 11/21/20 08:39 64 126/58 11/21/20 08:37 64 126/58 11/21/20 04:00 66 11/21/20 04:00 98.8 72 18 126/58 (80) 96 11/21/20 00:00 98.0 52 20 114/46 (68) 94 11/21/20 00:00 74 11/20/20 21:00 Room Air 11/20/20 21:00 52 112/46 11/20/20 20:00 68 11/20/20 20:00 98.0 52 20 114/46 (68) 94 11/20/20 17:04 69 135/77 11/20/20 16:00 97.4 81 18 135/77 (96) 98 11/20/20 16:00 63 11/20/20 12:00 68 11/20/20 12:00 98.7 87 20 129/91 (104) 97 Intake and Output 11/20/20 11/21/20 19:00 07:00 Intake Total 900 ml 240 ml Output Total 800 ml 400 ml Balance 100 ml -160 ml Intake Oral 900 ml 240 ml Output Urine Total 800 ml 400 ml # Voids 5 2 Current Medications Medications (Trade) Dose Ordered Sig/Manasa Route PRN Reason Start Time Stop Time Status Last Admin Dose Admin Acetaminophen (Tylenol) 500 mg Q4H PRN ORAL For Pain 11/01/20 01:00 12/01/20 00:59 11/19/20 22:08 Acetaminophen (Tylenol) 650 mg Q4H PRN RECTAL Temp >100.5 11/01/20 21:30 12/01/20 21:29 Allopurinol (Zyloprim) 200 mg DAILY ORAL 11/01/20 16:00 12/01/20 15:59 11/21/20 08:35 Amiodarone HCl (Cordarone) 200 mg DAILY ORAL 11/10/20 09:00 02/08/21 08:59 11/21/20 08:35 Chlorhexidine Gluconate (María Elena-Hex 2%) 1 applic DAILY@1999 TOPIC 11/04/20 20:00 02/02/21 19:59 11/16/20 21:34 Clonidine HCl (Catapres Tab) 0.1 mg Q4H PRN ORAL bp over 160 syst 10/31/20 17:45 01/29/21 17:44 11/01/20 09:20 Dextrose (Dextrose 50%) 25 ml Q30M PRN IV Hypoglycemia 11/01/20 07:15 01/30/21 07:14 Dextrose (Dextrose 50%) 50 ml Q30M PRN IV Hypoglycemia 11/01/20 07:15 01/30/21 07:14 Diltiazem HCl (Cardizem Tab) 90 mg BID ORAL 11/07/20 10:15 12/02/20 17:59 11/20/20 17:04 Docusate Sodium (Colace) 100 mg TWICE A DAY ORAL 10/31/20 18:00 11/30/20 17:59 11/21/20 08:35 Enoxaparin Sodium (Lovenox) 30 mg DAILY SUBQ 11/16/20 09:00 02/14/21 08:59 11/21/20 08:39 Haloperidol Lactate (Haldol) 5 mg Q6H PRN IM Agitation 11/06/20 21:30 12/21/20 21:29 11/21/20 06:31 Insulin Aspart (NovoLOG) BEFORE MEALS AND HS SUBQ 11/01/20 11:30 01/30/21 11:29 11/21/20 06:30 Insulin Aspart (NovoLOG) 5 units NOVOTIAC SUBQ 11/21/20 11:50 02/18/21 06:29 Insulin Detemir (Levemir) 15 units QHS SUBQ 11/21/20 21:00 02/18/21 20:59 Methimazole (Tapazole) 10 mg DAILY ORAL 11/03/20 09:00 12/03/20 08:59 11/21/20 08:36 Metoprolol Tartrate (Lopressor) 50 mg Q12HR ORAL 11/01/20 21:00 01/30/21 20:59 11/21/20 08:37 Ondansetron HCl (Zofran) 4 mg Q6H PRN IVP Nausea & Vomiting 11/07/20 16:30 12/07/20 16:29 11/07/20 17:28 Pantoprazole (Protonix) 40 mg BID ORAL 10/31/20 18:00 11/30/20 17:44 11/21/20 08:36 Sitagliptin Phosphate (Januvia) 25 mg ACBREAKFAST ORAL 11/06/20 06:30 12/06/20 06:29 11/21/20 06:29 Tamsulosin HCl (Flomax) 0.4 mg BID ORAL 11/03/20 12:00 12/03/20 11:59 11/21/20 08:36 Vitamin D (Vitamin D) 5,000 unit DAILY ORAL 11/13/20 09:00 12/13/20 08:59 11/21/20 08:34 Laboratory Tests 11/20/20 11:19: POC Whole Blood Glucose 295H 11/20/20 16:16: POC Whole Blood Glucose 297H 11/20/20 21:48: POC Whole Blood Glucose 231H 11/21/20 06:26: POC Whole Blood Glucose 200H 11/21/20 07:30: Thyroid Stimulating Hormone (TSH) [Pending], Free Thyroxine [Pending], Free Triiodothyronine [Pending] Height (Feet): 5 Height (Inches): 5.00 Weight (Pounds): 150 General Appearance: no apparent distress Cardiovascular: normal rate Respiratory/Chest: decreased breath sounds Abdomen: distended Garth Buckley MD Nov 21, 2020 09:16
--- NOTE | 2020-11-21 11:21 | Hematology/Onc Progress Note ---
Assessment/Plan Assessment/Plan Assessment/Plan # Anemia of chronic disease due to underlying chronic medical issues, Multifactorial --> Anemia w/u has been ordered --> No evidence of hemolysis is noted, peripheral smear has been reviewed. --> Hgb goal >7. Transfuse prn. --> Epogen or iron at this time is not particularly indicated --> hgb 7.8->8.3 # Thrombocytopenia - potential causes multifactorial, evaluate liver and viral etiologies, in this case due to covid19+++++ --> Hep panel and HIV ordered --> US abd to evaluate for cirrhosis and hsm ordered-->neg --> Peripheral smear ordered to evaluate for blasts /schistocytes --> abx and other meds have been reviewed --> ok for ppx if plt >50k w/ wither heparin or lovenox --> plt 128->125 # Elevated ddimer due to covid19+++ --> venous duplex neg --> ok for lovenox sq # NSTEMI with troponin of 0.25 and 0.35 in this patient with DKA as well as atrial flutter with rapid ventricular response. --> per cards, metoprolol 50 mg b.i.d. EF 65% # Atrial flutter with RVR On metoprolol 50 mg bid, Cardizem 90 bid and Amiodarone 200 po daily --> Eliquis held for hematuria # Diabetic ketoacidosis with glucose of more than 1000. # Accelerated hypertension. On Lopressor 50 bid and Cardizem 90 bid # COVID positive pneumonia. # Acute Renal failure in the setting of total CK of 1900, maybe rhabdomyolysis- induced renal failure. --> hd per renal --> S/P Bakari Hand on 11/11/20 # Dvt ppx lovenox sq Time of note does not necessarily correspond to the time the patient was seen. Appreciate consultation greatly. Subjective Constitutional: Denies: no symptoms, chills, fever, malaise, weakness, other HEENT: Denies: no symptoms, eye pain, blurred vision, tearing, double vision, ear pain, ear discharge, nose pain, nose congestion, throat pain, throat swelling, mouth pain, mouth swelling, other Cardiovascular: Denies: no symptoms, chest pain, edema, irregular heart rate, lightheadedness, palpitations, syncope, other Genitourinary: Denies: no symptoms, burning, discharge, frequency, flank pain, hematuria, incontinence, pain, urgency, other Neurologic/Psychiatric: Denies: no symptoms, anxiety, depressed, emotional problems, headache, numbness, paresthesia, pre-existing deficit, seizure, tingling, tremors, weakness, other Hematologic/Lymphatic: Denies: no symptoms, anemia, easy bleeding, easy bruising, adenopathy, other Allergies: Coded Allergies: No Known Allergies (Unverified , 10/31/20) Subjective 11/17 meds noted, labs reviewed, cbc has been ordered for today hgb 7.7 11/18 meds reviewed, is asymptomatic, labs ordered, no night sweats 11/21 no major changes, labs ordered plts remain low, hgb stable Objective Objective Current Medications Medications (Trade) Dose Ordered Sig/Manasa Route PRN Reason Start Time Stop Time Status Last Admin Dose Admin Acetaminophen (Tylenol) 500 mg Q4H PRN ORAL For Pain 11/01/20 01:00 12/01/20 00:59 11/19/20 22:08 Acetaminophen (Tylenol) 650 mg Q4H PRN RECTAL Temp >100.5 11/01/20 21:30 12/01/20 21:29 Allopurinol (Zyloprim) 200 mg DAILY ORAL 11/01/20 16:00 12/01/20 15:59 11/21/20 08:35 Amiodarone HCl (Cordarone) 200 mg DAILY ORAL 11/10/20 09:00 02/08/21 08:59 11/21/20 08:35 Chlorhexidine Gluconate (María Elena-Hex 2%) 1 applic DAILY@1999 TOPIC 11/04/20 20:00 02/02/21 19:59 11/16/20 21:34 Clonidine HCl (Catapres Tab) 0.1 mg Q4H PRN ORAL bp over 160 syst 10/31/20 17:45 01/29/21 17:44 11/01/20 09:20 Dextrose (Dextrose 50%) 25 ml Q30M PRN IV Hypoglycemia 11/01/20 07:15 01/30/21 07:14 Dextrose (Dextrose 50%) 50 ml Q30M PRN IV Hypoglycemia 11/01/20 07:15 01/30/21 07:14 Diltiazem HCl (Cardizem Tab) 90 mg BID ORAL 11/07/20 10:15 12/02/20 17:59 11/20/20 17:04 Docusate Sodium (Colace) 100 mg TWICE A DAY ORAL 10/31/20 18:00 11/30/20 17:59 11/21/20 08:35 Enoxaparin Sodium (Lovenox) 30 mg DAILY SUBQ 11/16/20 09:00 02/14/21 08:59 11/21/20 08:39 Haloperidol Lactate (Haldol) 5 mg Q6H PRN IM Agitation 11/06/20 21:30 12/21/20 21:29 11/21/20 06:31 Insulin Aspart (NovoLOG) BEFORE MEALS AND HS SUBQ 11/01/20 11:30 01/30/21 11:29 11/21/20 06:30 Insulin Aspart (NovoLOG) 5 units NOVOTIAC SUBQ 11/21/20 11:50 02/18/21 06:29 Insulin Detemir (Levemir) 15 units QHS SUBQ 11/21/20 21:00 02/18/21 20:59 Methimazole (Tapazole) 10 mg DAILY ORAL 11/03/20 09:00 12/03/20 08:59 11/21/20 08:36 Metoprolol Tartrate (Lopressor) 50 mg Q12HR ORAL 11/01/20 21:00 01/30/21 20:59 11/21/20 08:37 Ondansetron HCl (Zofran) 4 mg Q6H PRN IVP Nausea & Vomiting 11/07/20 16:30 12/07/20 16:29 11/07/20 17:28 Pantoprazole (Protonix) 40 mg BID ORAL 10/31/20 18:00 11/30/20 17:44 11/21/20 08:36 Sitagliptin Phosphate (Januvia) 25 mg ACBREAKFAST ORAL 11/06/20 06:30 12/06/20 06:29 11/21/20 06:29 Tamsulosin HCl (Flomax) 0.4 mg BID ORAL 11/03/20 12:00 12/03/20 11:59 11/21/20 08:36 Vitamin D (Vitamin D) 5,000 unit DAILY ORAL 11/13/20 09:00 12/13/20 08:59 11/21/20 08:34 Last 24 Hour Vital Signs Date Time Temp Pulse Resp B/P (MAP) Pulse Ox O2 Delivery O2 Flow Rate FiO2 11/21/20 09:00 Room Air 11/21/20 08:39 64 126/58 11/21/20 08:37 64 126/58 11/21/20 08:00 98.1 67 20 121/57 (78) 100 11/21/20 08:00 65 11/21/20 04:00 66 11/21/20 04:00 98.8 72 18 126/58 (80) 96 11/21/20 00:00 98.0 52 20 114/46 (68) 94 11/21/20 00:00 74 11/20/20 21:00 Room Air 11/20/20 21:00 52 112/46 11/20/20 20:00 68 11/20/20 20:00 98.0 52 20 114/46 (68) 94 11/20/20 17:04 69 135/77 11/20/20 16:00 97.4 81 18 135/77 (96) 98 11/20/20 16:00 63 11/20/20 12:00 68 11/20/20 12:00 98.7 87 20 129/91 (104) 97 11/20/20 09:00 Room Air 11/20/20 08:29 77 125/81 11/20/20 08:29 73 125/81 11/20/20 08:00 56 11/20/20 08:00 96.8 63 19 125/81 (96) 96 11/20/20 04:00 97.6 70 18 132/72 (92) 94 11/20/20 04:00 57 11/20/20 00:00 98.1 63 19 127/70 (89) 93 11/20/20 00:00 65 11/19/20 21:00 Room Air 11/19/20 21:00 70 130/78 11/19/20 20:00 98.4 72 18 130/74 (92) 93 11/19/20 18:28 57 119/99 11/19/20 16:00 98.4 57 18 119/99 (106) 94 11/19/20 16:00 57 11/19/20 12:00 61 11/19/20 12:00 98.4 61 18 115/71 (86) 96 Intake and Output 11/20/20 11/21/20 19:00 07:00 Intake Total 900 ml 240 ml Output Total 800 ml 400 ml Balance 100 ml -160 ml Intake Oral 900 ml 240 ml Output Urine Total 800 ml 400 ml # Voids 5 2 Labs Test 11/19/20 05:07 11/19/20 09:19 11/19/20 11:48 11/19/20 17:06 POC Whole Blood Glucose 198 MG/DL (74-106) 261 MG/DL (74-106) 120 MG/DL (74-106) White Blood Count 6.6 K/UL (4.8-10.8) Red Blood Count 2.84 M/UL (4.70-6.10) Hemoglobin 8.4 G/DL (14.2-18.0) Hematocrit 26.2 % (42.0-52.0) Mean Corpuscular Volume 92 FL (80-99) Mean Corpuscular Hemoglobin 29.7 PG (27.0-31.0) Mean Corpuscular Hemoglobin Concent 32.2 G/DL (32.0-36.0) Red Cell Distribution Width 13.2 % (11.6-14.8) Platelet Count 128 K/UL (150-450) Mean Platelet Volume 6.5 FL (6.5-10.1) Neutrophils (%) (Auto) 78.7 % (45.0-75.0) Lymphocytes (%) (Auto) 11.2 % (20.0-45.0) Monocytes (%) (Auto) 6.2 % (1.0-10.0) Eosinophils (%) (Auto) 2.6 % (0.0-3.0) Basophils (%) (Auto) 1.3 % (0.0-2.0) Sodium Level 136 MMOL/L (136-145) Potassium Level 4.3 MMOL/L (3.5-5.1) Chloride Level 104 MMOL/L (98-107) Carbon Dioxide Level 26 MMOL/L (21-32) Anion Gap 6 mmol/L (5-15) Blood Urea Nitrogen 35 mg/dL (7-18) Creatinine 3.0 MG/DL (0.55-1.30) Estimat Glomerular Filtration Rate 20.4 mL/min (>60) Glucose Level 210 MG/DL (74-106) Calcium Level 7.8 MG/DL (8.5-10.1) Test 11/19/20 21:19 11/20/20 05:31 11/20/20 06:45 11/20/20 11:19 POC Whole Blood Glucose 294 MG/DL (74-106) 91 MG/DL (74-106) 295 MG/DL (74-106) White Blood Count 6.0 K/UL (4.8-10.8) Red Blood Count 2.76 M/UL (4.70-6.10) Hemoglobin 8.3 G/DL (14.2-18.0) Hematocrit 25.7 % (42.0-52.0) Mean Corpuscular Volume 93 FL (80-99) Mean Corpuscular Hemoglobin 30.2 PG (27.0-31.0) Mean Corpuscular Hemoglobin Concent 32.4 G/DL (32.0-36.0) Red Cell Distribution Width 13.2 % (11.6-14.8) Platelet Count 125 K/UL (150-450) Mean Platelet Volume 6.0 FL (6.5-10.1) Neutrophils (%) (Auto) 76.4 % (45.0-75.0) Lymphocytes (%) (Auto) 13.3 % (20.0-45.0) Monocytes (%) (Auto) 6.4 % (1.0-10.0) Eosinophils (%) (Auto) 3.1 % (0.0-3.0) Basophils (%) (Auto) 0.7 % (0.0-2.0) Sodium Level 139 MMOL/L (136-145) Potassium Level 4.1 MMOL/L (3.5-5.1) Chloride Level 106 MMOL/L (98-107) Carbon Dioxide Level 24 MMOL/L (21-32) Anion Gap 9 mmol/L (5-15) Blood Urea Nitrogen 32 mg/dL (7-18) Creatinine 3.1 MG/DL (0.55-1.30) Estimat Glomerular Filtration Rate 19.7 mL/min (>60) Glucose Level 105 MG/DL (74-106) Hemoglobin A1c 8.5 % (4.3-6.0) Calcium Level 8.0 MG/DL (8.5-10.1) Test 11/20/20 16:16 11/20/20 21:48 11/21/20 06:26 11/21/20 07:30 POC Whole Blood Glucose 297 MG/DL (74-106) 231 MG/DL (74-106) 200 MG/DL (74-106) Thyroid Stimulating Hormone (TSH) 1.513 uiU/mL (0.358-3.740) Free Thyroxine 1.32 NG/DL (0.76-1.46) Free Triiodothyronine 1.2 pg/mL (2.3-4.2) Height (Feet): 5 Height (Inches): 5.00 Weight (Pounds): 150 Objective Physical Exam: Vitals: reviewed General: NAD HEENT: nc, at Neck: supple Chest: clear breath sounds bilaterally Cardiovascular: RRR, no s3, s4 Abdomen: soft, nontender, nd Extremities: no cce, normal range of motion Neuro: alert and oriented Montrell Weaver MD Nov 21, 2020 11:21
--- NOTE | 2020-11-21 11:22 | Infectious Diseases Prog Note ---
Assessment/Plan Assessment/Plan A; COVID19 pneumonia Hypoxemia Acute renal failure improving Rhabdomyolysis Diarrhea, C. difficile negative DKA Hyperthyroidism Anemia Leukocytosis improving Dementia P; Finished Dexamethasone course Observe off antibiotic Subjective ROS Limited/Unobtainable: Yes Constitutional: Reports: no symptoms, other - doing better Allergies: Coded Allergies: No Known Allergies (Unverified , 10/31/20) Objective Last 24 Hour Vital Signs Date Time Temp Pulse Resp B/P (MAP) Pulse Ox O2 Delivery O2 Flow Rate FiO2 11/21/20 09:00 Room Air 11/21/20 08:39 64 126/58 11/21/20 08:37 64 126/58 11/21/20 08:00 98.1 67 20 121/57 (78) 100 11/21/20 08:00 65 11/21/20 04:00 66 11/21/20 04:00 98.8 72 18 126/58 (80) 96 11/21/20 00:00 98.0 52 20 114/46 (68) 94 11/21/20 00:00 74 11/20/20 21:00 Room Air 11/20/20 21:00 52 112/46 11/20/20 20:00 68 11/20/20 20:00 98.0 52 20 114/46 (68) 94 11/20/20 17:04 69 135/77 11/20/20 16:00 97.4 81 18 135/77 (96) 98 11/20/20 16:00 63 11/20/20 12:00 68 11/20/20 12:00 98.7 87 20 129/91 (104) 97 Height (Feet): 5 Height (Inches): 5.00 Weight (Pounds): 150 HEENT: mucous membranes moist Respiratory/Chest: lungs clear Cardiovascular: normal rate Abdomen: soft, non tender Extremities: no edema Neurologic/Psychiatric: alert, responsive, other - ambulatory with walker Laboratory Tests Test 11/20/20 16:16 11/20/20 21:48 11/21/20 06:26 11/21/20 07:30 POC Whole Blood Glucose 297 MG/DL (74-106) H 231 MG/DL (74-106) H 200 MG/DL (74-106) H Thyroid Stimulating Hormone (TSH) 1.513 uiU/mL (0.358-3.740) Free Thyroxine 1.32 NG/DL (0.76-1.46) Free Triiodothyronine 1.2 pg/mL (2.3-4.2) L Current Medications Medications (Trade) Dose Ordered Sig/Manasa Route PRN Reason Start Time Stop Time Status Last Admin Dose Admin Acetaminophen (Tylenol) 500 mg Q4H PRN ORAL For Pain 11/01/20 01:00 12/01/20 00:59 11/19/20 22:08 Acetaminophen (Tylenol) 650 mg Q4H PRN RECTAL Temp >100.5 11/01/20 21:30 12/01/20 21:29 Allopurinol (Zyloprim) 200 mg DAILY ORAL 11/01/20 16:00 12/01/20 15:59 11/21/20 08:35 Amiodarone HCl (Cordarone) 200 mg DAILY ORAL 11/10/20 09:00 02/08/21 08:59 11/21/20 08:35 Chlorhexidine Gluconate (María Elena-Hex 2%) 1 applic DAILY@2000 TOPIC 11/04/20 20:00 02/02/21 19:59 11/16/20 21:34 Clonidine HCl (Catapres Tab) 0.1 mg Q4H PRN ORAL bp over 160 syst 10/31/20 17:45 01/29/21 17:44 11/01/20 09:20 Dextrose (Dextrose 50%) 25 ml Q30M PRN IV Hypoglycemia 11/01/20 07:15 01/30/21 07:14 Dextrose (Dextrose 50%) 50 ml Q30M PRN IV Hypoglycemia 11/01/20 07:15 01/30/21 07:14 Diltiazem HCl (Cardizem Tab) 90 mg BID ORAL 11/07/20 10:15 12/02/20 17:59 11/20/20 17:04 Docusate Sodium (Colace) 100 mg TWICE A DAY ORAL 10/31/20 18:00 11/30/20 17:59 11/21/20 08:35 Enoxaparin Sodium (Lovenox) 30 mg DAILY SUBQ 11/16/20 09:00 02/14/21 08:59 11/21/20 08:39 Haloperidol Lactate (Haldol) 5 mg Q6H PRN IM Agitation 11/06/20 21:30 12/21/20 21:29 11/21/20 06:31 Insulin Aspart (NovoLOG) BEFORE MEALS AND HS SUBQ 11/01/20 11:30 01/30/21 11:29 11/21/20 06:30 Insulin Aspart (NovoLOG) 5 units NOVOTIAC SUBQ 11/21/20 11:50 02/18/21 06:29 Insulin Detemir (Levemir) 15 units QHS SUBQ 11/21/20 21:00 02/18/21 20:59 Methimazole (Tapazole) 10 mg DAILY ORAL 11/03/20 09:00 12/03/20 08:59 11/21/20 08:36 Metoprolol Tartrate (Lopressor) 50 mg Q12HR ORAL 11/01/20 21:00 01/30/21 20:59 11/21/20 08:37 Ondansetron HCl (Zofran) 4 mg Q6H PRN IVP Nausea & Vomiting 11/07/20 16:30 12/07/20 16:29 11/07/20 17:28 Pantoprazole (Protonix) 40 mg BID ORAL 10/31/20 18:00 11/30/20 17:44 11/21/20 08:36 Sitagliptin Phosphate (Januvia) 25 mg ACBREAKFAST ORAL 11/06/20 06:30 12/06/20 06:29 11/21/20 06:29 Tamsulosin HCl (Flomax) 0.4 mg BID ORAL 11/03/20 12:00 12/03/20 11:59 11/21/20 08:36 Vitamin D (Vitamin D) 5,000 unit DAILY ORAL 11/13/20 09:00 12/13/20 08:59 11/21/20 08:34 Reji Connelly MD Nov 21, 2020 11:22
[2020-11-21 11:44] LABS: HEMATOCRIT 22.2 % (42.0-52.0); MEAN CORPUSCULAR VOLUME 94 FL (80-99); PLATELET COUNT 133 K/UL (150-450); RED BLOOD COUNT 2.38 M/UL (4.70-6.10); RED CELL DISTRIBUTION WIDTH 12.8 % (11.6-14.8); WHITE BLOOD COUNT 6.1 K/UL (4.8-10.8)
--- NOTE | 2020-11-21 11:44 | NUR ---
NURSE NOTES: Contacted Dr. Singh about D/c restraints and MD gave order to D/c Patients restarint Addendum: 11/21/20 at 1216 by Reji Abbott RN NURSE NOTES: *restraints as they are not indicated at this point
[2020-11-21 11:47] LABS: BASOPHILS % (AUTO) 0.6 % (0.0-2.0); EOSINOPHILS % (AUTO) 3.4 % (0.0-3.0); LYMPHOCYTES % (AUTO) 17.6 % (20.0-45.0); MONOCYTES % (AUTO) 6.6 % (1.0-10.0); NEUTROPHILS % (AUTO) 71.3 % (45.0-75.0)
[2020-11-21 12:00] VITALS: BP 110/56
--- NOTE | 2020-11-21 12:50 | Cardiac Electrophysiology PN ---
Assessment/Plan Assessment/Plan 1. NSTEMI with troponin of 0.25 and 0.35 in this patient with DKA as well as atrial flutter with rapid ventricular response. On metoprolol 50 mg b.i.d. EF 65% 2. Atrial flutter with RVR On metoprolol 50 mg bid, Cardizem 90 bid and Amiodarone 200 po daily Off Eliquis for hematuria 3. Diabetic ketoacidosis with glucose of more than 1000. 4. Hypertension. On Lopressor 50 bid and Cardizem 90 bid 5. COVID positive pneumonia. 6. Acute Renal failure in the setting of total CK of 1900, maybe rhabdomyolysis- induced renal failure. On HD via RFV Yazan by Dr. Buckley. RFV Yazan pulled out by patient. S/P New RIJ Yazan on 11/11/20 that was then removed on 11/17 as no more need for HD 7. Anemia. S/P PRBC 11/16 DW RN Subjective Subjective Pulled out his RFV Yazan catheter on 11/08/20. S/P new Yazan catheter placement 11/11/20. R IJ HD catheter removed 11/17/20 S/P PRBC On RA, feeding himself In SR on Amio, Cardizem and metoprolol. Objective Last 24 Hour Vital Signs Date Time Temp Pulse Resp B/P (MAP) Pulse Ox O2 Delivery O2 Flow Rate FiO2 11/21/20 12:00 97.9 66 20 110/56 (74) 99 11/21/20 09:00 Room Air 11/21/20 08:39 64 126/58 11/21/20 08:37 64 126/58 11/21/20 08:00 98.1 67 20 121/57 (78) 100 11/21/20 08:00 65 11/21/20 04:00 66 11/21/20 04:00 98.8 72 18 126/58 (80) 96 11/21/20 00:00 98.0 52 20 114/46 (68) 94 11/21/20 00:00 74 11/20/20 21:00 Room Air 11/20/20 21:00 52 112/46 11/20/20 20:00 68 11/20/20 20:00 98.0 52 20 114/46 (68) 94 11/20/20 17:04 69 135/77 11/20/20 16:00 97.4 81 18 135/77 (96) 98 11/20/20 16:00 63 Intake and Output 11/20/20 11/21/20 19:00 07:00 Intake Total 900 ml 240 ml Output Total 800 ml 400 ml Balance 100 ml -160 ml Intake Oral 900 ml 240 ml Output Urine Total 800 ml 400 ml # Voids 5 2 Laboratory Tests Test 11/20/20 16:16 11/20/20 21:48 11/21/20 06:26 11/21/20 07:30 POC Whole Blood Glucose 297 MG/DL (74-106) H 231 MG/DL (74-106) H 200 MG/DL (74-106) H Thyroid Stimulating Hormone (TSH) 1.513 uiU/mL (0.358-3.740) Free Thyroxine 1.32 NG/DL (0.76-1.46) Free Triiodothyronine 1.2 pg/mL (2.3-4.2) L Test 11/21/20 11:30 11/21/20 11:56 White Blood Count 6.1 K/UL (4.8-10.8) Red Blood Count 2.38 M/UL (4.70-6.10) L Hemoglobin 7.0 G/DL (14.2-18.0) L Hematocrit 22.2 % (42.0-52.0) L Mean Corpuscular Volume 94 FL (80-99) Mean Corpuscular Hemoglobin 29.6 PG (27.0-31.0) Mean Corpuscular Hemoglobin Concent 31.6 G/DL (32.0-36.0) L Red Cell Distribution Width 12.8 % (11.6-14.8) Platelet Count 133 K/UL (150-450) L Mean Platelet Volume 5.1 FL (6.5-10.1) L Neutrophils (%) (Auto) 71.3 % (45.0-75.0) Lymphocytes (%) (Auto) 17.6 % (20.0-45.0) L Monocytes (%) (Auto) 6.6 % (1.0-10.0) Eosinophils (%) (Auto) 3.4 % (0.0-3.0) H Basophils (%) (Auto) 0.6 % (0.0-2.0) POC Whole Blood Glucose 178 MG/DL (74-106) H Objective HEAD AND NECK: No JVD. LUNGS: Clear. CARDIOVASCULAR: Shows regular S1 and S2 with no gallop. ABDOMEN: Soft. EXTREMITIES: Right IJ Yazan is removed. No pitting edema. Sivakumar Escalante MD Nov 21, 2020 12:50
--- NOTE | 2020-11-21 13:22 | NUR ---
insurance CLINICALS AND REVIEW FAXED TO [facility] T: [phone] F: [phone]
--- NOTE | 2020-11-21 13:28 | NUR ---
NURSE NOTES: Contacted Dr. Weaver about patients low HGB of 7.0 Dr. Weaver ordered 1 unit of PRBCs.
--- NOTE | 2020-11-21 15:03 | Pulmonology Progress Note ---
Subjective ROS Limited/Unobtainable: Yes Interval Events: none major reported per nursing Constitutional: Reports: no symptoms, other - doing better Gastrointestinal/Abdominal: Reports: diarrhea - C. diff negative Allergies: Coded Allergies: No Known Allergies (Unverified , 10/31/20) Objective Last 24 Hour Vital Signs Date Time Temp Pulse Resp B/P (MAP) Pulse Ox O2 Delivery O2 Flow Rate FiO2 11/21/20 12:00 97.9 66 20 110/56 (74) 99 11/21/20 12:00 64 11/21/20 09:00 Room Air 11/21/20 08:39 64 126/58 11/21/20 08:37 64 126/58 11/21/20 08:00 98.1 67 20 121/57 (78) 100 11/21/20 08:00 65 11/21/20 04:00 66 11/21/20 04:00 98.8 72 18 126/58 (80) 96 11/21/20 00:00 98.0 52 20 114/46 (68) 94 11/21/20 00:00 74 11/20/20 21:00 Room Air 11/20/20 21:00 52 112/46 11/20/20 20:00 68 11/20/20 20:00 98.0 52 20 114/46 (68) 94 11/20/20 17:04 69 135/77 11/20/20 16:00 97.4 81 18 135/77 (96) 98 11/20/20 16:00 63 Intake and Output 11/20/20 11/21/20 19:00 07:00 Intake Total 900 ml 240 ml Output Total 800 ml 400 ml Balance 100 ml -160 ml Intake Oral 900 ml 240 ml Output Urine Total 800 ml 400 ml # Voids 5 2 Objective now on room air General Appearance: WD/WN, no acute distress HEENT: atraumatic Respiratory: chest wall non-tender Cardiovascular: normal rate, regular rhythm Abdomen: soft, non tender Laboratory Tests 11/20/20 16:16: POC Whole Blood Glucose 297H 11/20/20 21:48: POC Whole Blood Glucose 231H 11/21/20 06:26: POC Whole Blood Glucose 200H 11/21/20 07:30: Thyroid Stimulating Hormone (TSH) 1.513, Free Thyroxine 1.32, Free Triiodothyronine 1.2L 11/21/20 11:30: White Blood Count 6.1, Red Blood Count 2.38L, Hemoglobin 7.0L, Hematocrit 22.2L, Mean Corpuscular Volume 94, Mean Corpuscular Hemoglobin 29.6, Mean Corpuscular Hemoglobin Concent 31.6L, Red Cell Distribution Width 12.8, Platelet Count 133L, Mean Platelet Volume 5.1L, Neutrophils (%) (Auto) 71.3, Lymphocytes (%) (Auto) 17.6L, Monocytes (%) (Auto) 6.6, Eosinophils (%) (Auto) 3.4H, Basophils (%) (Auto) 0.6 11/21/20 11:56: POC Whole Blood Glucose 178H Current Medications Medications (Trade) Dose Ordered Sig/Manasa Route PRN Reason Start Time Stop Time Status Last Admin Dose Admin Acetaminophen (Tylenol) 500 mg Q4H PRN ORAL For Pain 11/01/20 01:00 12/01/20 00:59 11/19/20 22:08 Acetaminophen (Tylenol) 650 mg Q4H PRN RECTAL Temp >100.5 11/01/20 21:30 12/01/20 21:29 Allopurinol (Zyloprim) 200 mg DAILY ORAL 11/01/20 16:00 12/01/20 15:59 11/21/20 08:35 Amiodarone HCl (Cordarone) 200 mg DAILY ORAL 11/10/20 09:00 02/08/21 08:59 11/21/20 08:35 Chlorhexidine Gluconate (María Elena-Hex 2%) 1 applic DAILY@1999 TOPIC 11/04/20 20:00 02/02/21 19:59 11/16/20 21:34 Clonidine HCl (Catapres Tab) 0.1 mg Q4H PRN ORAL bp over 160 syst 10/31/20 17:45 01/29/21 17:44 11/01/20 09:20 Dextrose (Dextrose 50%) 25 ml Q30M PRN IV Hypoglycemia 11/01/20 07:15 01/30/21 07:14 Dextrose (Dextrose 50%) 50 ml Q30M PRN IV Hypoglycemia 11/01/20 07:15 01/30/21 07:14 Diltiazem HCl (Cardizem Tab) 90 mg BID ORAL 11/07/20 10:15 12/02/20 17:59 11/20/20 17:04 Docusate Sodium (Colace) 100 mg TWICE A DAY ORAL 10/31/20 18:00 11/30/20 17:59 11/21/20 08:35 Enoxaparin Sodium (Lovenox) 30 mg DAILY SUBQ 11/16/20 09:00 02/14/21 08:59 11/21/20 08:39 Haloperidol Lactate (Haldol) 5 mg Q6H PRN IM Agitation 11/06/20 21:30 12/21/20 21:29 11/21/20 06:31 Insulin Aspart (NovoLOG) BEFORE MEALS AND HS SUBQ 11/01/20 11:30 01/30/21 11:29 11/21/20 12:06 Insulin Aspart (NovoLOG) 5 units NOVOTIAC SUBQ 11/21/20 11:50 02/18/21 06:29 11/21/20 12:07 Insulin Detemir (Levemir) 15 units QHS SUBQ 11/21/20 21:00 02/18/21 20:59 Methimazole (Tapazole) 10 mg DAILY ORAL 11/03/20 09:00 12/03/20 08:59 11/21/20 08:36 Metoprolol Tartrate (Lopressor) 50 mg Q12HR ORAL 11/01/20 21:00 01/30/21 20:59 11/21/20 08:37 Ondansetron HCl (Zofran) 4 mg Q6H PRN IVP Nausea & Vomiting 11/07/20 16:30 12/07/20 16:29 11/07/20 17:28 Pantoprazole (Protonix) 40 mg BID ORAL 10/31/20 18:00 11/30/20 17:44 11/21/20 08:36 Sitagliptin Phosphate (Januvia) 25 mg ACBREAKFAST ORAL 11/06/20 06:30 12/06/20 06:29 11/21/20 06:29 Tamsulosin HCl (Flomax) 0.4 mg BID ORAL 11/03/20 12:00 12/03/20 11:59 11/21/20 08:36 Vitamin D (Vitamin D) 5,000 unit DAILY ORAL 11/13/20 09:00 12/13/20 08:59 11/21/20 08:34 Assessment/Plan Assessment/Plan 1. Non-ST elevation myocardial infarction. - cardiology following 2. Diabetic ketoacidosis - seen by endocrinology - continue fluids - on insulin 3. Atrial flutter with rapid ventricular response. - Continue metoprolol 50 mg b.i.d. 4. COVID positive pneumonia. - s/p Decadron (11/03-11/12) - Supplemental O2 - saturating well on room air - CXR 11/04 developing b/l infilitrates 5. Renal failure - nephrology following 6. Accelerated hypertension. 7. Hyperthyroidism - Dr. Tamez following 8. Diarrhea - C. diff negative 9. DVT ppx - s/p Eliquis - We will restart low dose Lovenox given eGFR <30 - ok to continue if plt >50K per heme onc 10. Anemia - s/p transfusion (11/16) Medically stable for discharge from pulmonary standpoint PT eval recommends SNF placement The care for this patient was discussed with my supervising physician Time spent for this case was approximately 31 minutes Singh Buchanan Nov 21, 2020 15:03
[2020-11-21 16:00] VITALS: BP 132/58
--- NOTE | 2020-11-21 17:05 | General Progress Note ---
Subjective ROS Limited/Unobtainable: Yes Allergies: Coded Allergies: No Known Allergies (Unverified , 10/31/20) Objective Last 24 Hour Vital Signs Date Time Temp Pulse Resp B/P (MAP) Pulse Ox O2 Delivery O2 Flow Rate FiO2 11/21/20 16:00 74 11/21/20 16:00 98.2 74 20 132/58 (82) 98 11/21/20 12:00 97.9 66 20 110/56 (74) 99 11/21/20 12:00 64 11/21/20 09:00 Room Air 11/21/20 08:39 64 126/58 11/21/20 08:37 64 126/58 11/21/20 08:00 98.1 67 20 121/57 (78) 100 11/21/20 08:00 65 11/21/20 04:00 66 11/21/20 04:00 98.8 72 18 126/58 (80) 96 11/21/20 00:00 98.0 52 20 114/46 (68) 94 11/21/20 00:00 74 11/20/20 21:00 Room Air 11/20/20 21:00 52 112/46 11/20/20 20:00 68 11/20/20 20:00 98.0 52 20 114/46 (68) 94 Intake and Output 11/20/20 11/21/20 19:00 07:00 Intake Total 900 ml 240 ml Output Total 800 ml 400 ml Balance 100 ml -160 ml Intake Oral 900 ml 240 ml Output Urine Total 800 ml 400 ml # Voids 5 2 Laboratory Tests 11/20/20 21:48: POC Whole Blood Glucose 231H 11/21/20 06:26: POC Whole Blood Glucose 200H 11/21/20 07:30: Thyroid Stimulating Hormone (TSH) 1.513, Free Thyroxine 1.32, Free Triiodothyronine 1.2L 11/21/20 11:30: White Blood Count 6.1, Red Blood Count 2.38L, Hemoglobin 7.0L, Hematocrit 22.2L, Mean Corpuscular Volume 94, Mean Corpuscular Hemoglobin 29.6, Mean Corpuscular Hemoglobin Concent 31.6L, Red Cell Distribution Width 12.8, Platelet Count 133L, Mean Platelet Volume 5.1L, Neutrophils (%) (Auto) 71.3, Lymphocytes (%) (Auto) 17.6L, Monocytes (%) (Auto) 6.6, Eosinophils (%) (Auto) 3.4H, Basophils (%) (Auto) 0.6 11/21/20 11:56: POC Whole Blood Glucose 178H Height (Feet): 5 Height (Inches): 5.00 Weight (Pounds): 150 Assessment/Plan Problem List: (1) Renal failure (ARF), acute on chronic ICD Codes: N17.9 - Acute kidney failure, unspecified; N18.9 - Chronic kidney disease, unspecified SNOMED: 501629681 (2) DKA (diabetic ketoacidoses) ICD Codes: E11.10 - Type 2 diabetes mellitus with ketoacidosis without coma SNOMED: 034985254, 35531127 (3) COVID-19 virus infection ICD Codes: U07.1 - COVID-19 SNOMED: 264295286 (4) Rhabdomyolysis ICD Codes: M62.82 - Rhabdomyolysis SNOMED: 143332438 (5) Diabetes mellitus out of control ICD Codes: E11.65 - Type 2 diabetes mellitus with hyperglycemia SNOMED: 86727289, 284090368 (6) Abnormal thyroid blood test ICD Codes: R79.89 - Other specified abnormal findings of blood chemistry SNOMED: 356247327, 250972905674429 (7) NSTEMI (non-ST elevated myocardial infarction) ICD Codes: I21.4 - Non-ST elevation (NSTEMI) myocardial infarction SNOMED: 39801711 Status: progressing, unchanged Assessment/Plan: covid + weak and debilitated sepsis needs to go to snf for PT/OT Corey Soto MD Nov 21, 2020 17:05
--- NOTE | 2020-11-21 19:00 | NUR ---
NURSE NOTES: Patient seen in bed laying on patients Left arm that is infusing PRBCs. When turning patient supine off IV site on Left arm, patient noted to have IV infiltration with swollen IV site and bruising noted. Patients blood transfusion was stopped, IV site was discontinued, arm was elevated and patients VS were taken and all within normal limits. Dr. Soto and Dr. Weaver were both notified with no further orders. Will continue to monitor IV site.
--- NOTE | 2020-11-21 19:22 | NUR ---
NURSE HAND-OFF REPORT: Important Events on Shift:[1 Unit PRBCs] Patient Status: [Full code] Diet: [Renal Puree moist] Pending Orders: [N/A] Pending Results/Labs:[N/A] Pending MD notification:[N/A] Latest Vital Signs: Temperature 98.2 , Pulse 74 , B/P 132 /58 , Respiratory Rate 20 , O2 SAT 98 , Nasal Cannula, O2 Flow Rate 2.0 . Vital Sign Comment: [] EKG Rhythm: Sinus Rhythm Rhythm change?: Amari ANDERSON Notified?: Enoc Sawyer MD Response: Message left await call Latest Bhat Fall Score: 75 Fall Risk: High Risk Safety Measures: Call light Within Reach, Bed Alarm Zone 1, Side Rails Side Rails x3, Bed position Low and Locked. Fall Precautions: Yellow Socks Yellow Gown Report given to [ARPITA Adamson].
--- NOTE | 2020-11-21 19:45 | NUR ---
NURSE NOTES: Received patient from ARPITA Mendoza. AAOx2, able to communicate needs. On room air, saturating well. With 1 unit of pRBC transfusing on right hand #20g. IV site on LFA noted to be infiltrated. Warm compress applied and arm elevated. Not in acute distress. Bed in lowest position, brakes engaged and bed alarm on. Call light placed within reach. Will continue to monitor.
[2020-11-21 20:00] VITALS: BP 125/58
[2020-11-21] MEDS: Dyna-Hex 2% Top Sol 2oz TOPIC SCH (20:00)
[2020-11-21] MEDS: Levemir Flexpen SUBQ SCH (20:18)
--- NOTE | 2020-11-21 20:25 | Psychiatric Progress Note ---
Psychiatry Progress Note Psychiatry Progress Note Medications Current Medications Medications (Trade) Dose Ordered Sig/Manasa Route PRN Reason Start Time Stop Time Status Last Admin Dose Admin Acetaminophen (Tylenol) 500 mg Q4H PRN ORAL For Pain 11/01/20 01:00 12/01/20 00:59 11/19/20 22:08 Acetaminophen (Tylenol) 650 mg Q4H PRN RECTAL Temp >100.5 11/01/20 21:30 12/01/20 21:29 Allopurinol (Zyloprim) 200 mg DAILY ORAL 11/01/20 16:00 12/01/20 15:59 11/21/20 08:35 Amiodarone HCl (Cordarone) 200 mg DAILY ORAL 11/10/20 09:00 02/08/21 08:59 11/21/20 08:35 Chlorhexidine Gluconate (María Elena-Hex 2%) 1 applic DAILY@2000 TOPIC 11/04/20 20:00 02/02/21 19:59 11/16/20 21:34 Clonidine HCl (Catapres Tab) 0.1 mg Q4H PRN ORAL bp over 160 syst 10/31/20 17:45 01/29/21 17:44 11/01/20 09:20 Dextrose (Dextrose 50%) 25 ml Q30M PRN IV Hypoglycemia 11/01/20 07:15 01/30/21 07:14 Dextrose (Dextrose 50%) 50 ml Q30M PRN IV Hypoglycemia 11/01/20 07:15 01/30/21 07:14 Diltiazem HCl (Cardizem Tab) 90 mg BID ORAL 11/07/20 10:15 12/02/20 17:59 11/21/20 17:10 Docusate Sodium (Colace) 100 mg TWICE A DAY ORAL 10/31/20 18:00 11/30/20 17:59 11/21/20 17:08 Enoxaparin Sodium (Lovenox) 30 mg DAILY SUBQ 11/16/20 09:00 02/14/21 08:59 11/21/20 08:39 Haloperidol Lactate (Haldol) 5 mg Q6H PRN IM Agitation 11/06/20 21:30 12/21/20 21:29 11/21/20 06:31 Insulin Aspart (NovoLOG) BEFORE MEALS AND HS SUBQ 11/01/20 11:30 01/30/21 11:29 11/21/20 20:19 Insulin Aspart (NovoLOG) 5 units NOVOTIAC SUBQ 11/21/20 11:50 02/18/21 06:29 11/21/20 17:13 Insulin Detemir (Levemir) 15 units QHS SUBQ 11/21/20 21:00 02/18/21 20:59 11/21/20 20:18 Methimazole (Tapazole) 10 mg DAILY ORAL 11/03/20 09:00 12/03/20 08:59 11/21/20 08:36 Metoprolol Tartrate (Lopressor) 50 mg Q12HR ORAL 11/01/20 21:00 01/30/21 20:59 11/21/20 20:10 Ondansetron HCl (Zofran) 4 mg Q6H PRN IVP Nausea & Vomiting 11/07/20 16:30 12/07/20 16:29 11/07/20 17:28 Pantoprazole (Protonix) 40 mg BID ORAL 10/31/20 18:00 11/30/20 17:44 11/21/20 17:09 Sitagliptin Phosphate (Januvia) 25 mg ACBREAKFAST ORAL 11/06/20 06:30 12/06/20 06:29 11/21/20 06:29 Tamsulosin HCl (Flomax) 0.4 mg BID ORAL 11/03/20 12:00 12/03/20 11:59 11/21/20 17:09 Vitamin D (Vitamin D) 5,000 unit DAILY ORAL 11/13/20 09:00 12/13/20 08:59 11/21/20 08:34 Neurological/Psychiatric: Reports: anxiety, depressed, emotional problems; Denies: no symptoms, headache, numbness, paresthesia, pre-existing deficit, seizure, tingling, tremors, weakness, other Allergies: Coded Allergies: No Known Allergies (Unverified , 10/31/20) Objective Data Height (Feet): 5 Height (Inches): 5.00 Weight (Pounds): 150 General Appearance: no apparent distress Additional Comments: The patient is confused, disoriented, Slovenian-speaking. Mood is agitated. Affect is flat. Thought process disorganized. Thought content, no suicidal, homicidal ideation. Cognition is impaired. Insight and judgment is impaired. ASSESSMENT: [place] I Acute toxic encephalopathy. Dementia. [place] II Deferred. [place] III COVID-19. [place] IV Low. [place] V 20 PLAN: 1. We will start the patient on soft restraints. 2. Continue to follow and readjust the meds. Assessment/Plan Status: progressing, unchanged Brigido Singh MD Nov 21, 2020 20:25
[2020-11-22] VITALS: BP 133/61
--- NOTE | 2020-11-22 03:11 | NUR ---
NURSE NOTES: Patient seen resting in bed. Midnight snacks given. On room air, saturating well. Not in acute distress. Bed rails and bed alarm on. Will continue to monitor.
[2020-11-22 04:00] VITALS: BP 145/59
[2020-11-22] MEDS: sitaGLIPtin 25mg tab ORAL SCH (05:51)
[2020-11-22] MEDS: NovoLOG Insulin Flexpen SUBQ SCH ×7 (05:51→21:14)
--- NOTE | 2020-11-22 06:10 | NUR ---
NURSE NOTES: Left AC still bruised from the IV infiltration yesterday. Warm compress placed and extremity elevated. No complaints of pain.
--- NOTE | 2020-11-22 06:25 | Hematology/Onc Progress Note ---
Assessment/Plan Assessment/Plan Assessment/Plan # Anemia of chronic disease due to underlying chronic medical issues, Multifactorial --> Anemia w/u has been ordered --> No evidence of hemolysis is noted, peripheral smear has been reviewed. --> Hgb goal >7. Transfuse prn. --> Epogen or iron at this time is not particularly indicated --> hgb 7.8->8.3-->7 -> 1 unit prbc 11/21 # Thrombocytopenia - potential causes multifactorial, evaluate liver and viral etiologies, in this case due to covid19+++++ --> Hep panel and HIV ordered --> US abd to evaluate for cirrhosis and hsm ordered-->neg --> Peripheral smear ordered to evaluate for blasts /schistocytes --> abx and other meds have been reviewed --> ok for ppx if plt >50k w/ wither heparin or lovenox --> plt 128->125 # Elevated ddimer due to covid19+++ --> venous duplex neg --> ok for lovenox sq # NSTEMI with troponin of 0.25 and 0.35 in this patient with DKA as well as atrial flutter with rapid ventricular response. --> per cards, metoprolol 50 mg b.i.d. EF 65% # Atrial flutter with RVR On metoprolol 50 mg bid, Cardizem 90 bid and Amiodarone 200 po daily --> Eliquis held for hematuria # Diabetic ketoacidosis with glucose of more than 1000. # Accelerated hypertension. On Lopressor 50 bid and Cardizem 90 bid # COVID positive pneumonia. # Acute Renal failure in the setting of total CK of 1900, maybe rhabdomyolysis- induced renal failure. --> hd per renal --> S/P Bkaari Hand on 11/11/20 # Dvt ppx lovenox sq Time of note does not necessarily correspond to the time the patient was seen. Appreciate consultation greatly. Subjective Cardiovascular: Denies: no symptoms, chest pain, edema, irregular heart rate, lightheadedness, palpitations, syncope, other Respiratory: Denies: no symptoms, cough, shortness of breath, SOB with excertion, SOB at rest, sputum, wheezing, other Gastrointestinal/Abdominal: Denies: no symptoms, abdomen distended, abdominal pain, black stools, tarry stools, blood in stool, constipated, diarrhea, difficulty swallowing, nausea, poor appetite, poor fluid intake, rectal bleeding, vomiting, other Genitourinary: Denies: no symptoms, burning, discharge, frequency, flank pain, hematuria, incontinence, pain, urgency, other Neurologic/Psychiatric: Denies: no symptoms, anxiety, depressed, emotional problems, headache, numbness, paresthesia, pre-existing deficit, seizure, tingling, tremors, weakness, other Endocrine: Denies: no symptoms, excessive sweating, flushing, intolerance to cold, intolerance to heat, increased hunger, increased thirst, increased urine, unexplained weight gain, unexplained weight loss, other Allergies: Coded Allergies: No Known Allergies (Unverified , 10/31/20) Subjective 11/17 meds noted, labs reviewed, cbc has been ordered for today hgb 7.7 11/18 meds reviewed, is asymptomatic, labs ordered, no night sweats 11/21 no major changes, labs ordered plts remain low, hgb stable 11/22 ivl with bruising, labs are still pending, have ordered cbc Objective Objective Current Medications Medications (Trade) Dose Ordered Sig/Manasa Route PRN Reason Start Time Stop Time Status Last Admin Dose Admin Acetaminophen (Tylenol) 500 mg Q4H PRN ORAL For Pain 11/01/20 01:00 12/01/20 00:59 11/19/20 22:08 Acetaminophen (Tylenol) 650 mg Q4H PRN RECTAL Temp >100.5 11/01/20 21:30 12/01/20 21:29 Allopurinol (Zyloprim) 200 mg DAILY ORAL 11/01/20 16:00 12/01/20 15:59 11/21/20 08:35 Amiodarone HCl (Cordarone) 200 mg DAILY ORAL 11/10/20 09:00 02/08/21 08:59 11/21/20 08:35 Chlorhexidine Gluconate (María Elena-Hex 2%) 1 applic DAILY@1999 TOPIC 11/04/20 20:00 02/02/21 19:59 11/16/20 21:34 Clonidine HCl (Catapres Tab) 0.1 mg Q4H PRN ORAL bp over 160 syst 10/31/20 17:45 01/29/21 17:44 11/01/20 09:20 Dextrose (Dextrose 50%) 25 ml Q30M PRN IV Hypoglycemia 11/01/20 07:15 01/30/21 07:14 Dextrose (Dextrose 50%) 50 ml Q30M PRN IV Hypoglycemia 11/01/20 07:15 01/30/21 07:14 Diltiazem HCl (Cardizem Tab) 90 mg BID ORAL 11/07/20 10:15 12/02/20 17:59 11/21/20 17:10 Docusate Sodium (Colace) 100 mg TWICE A DAY ORAL 10/31/20 18:00 11/30/20 17:59 11/21/20 17:08 Enoxaparin Sodium (Lovenox) 30 mg DAILY SUBQ 11/16/20 09:00 02/14/21 08:59 11/21/20 08:39 Haloperidol Lactate (Haldol) 5 mg Q6H PRN IM Agitation 11/06/20 21:30 12/21/20 21:29 11/21/20 06:31 Insulin Aspart (NovoLOG) BEFORE MEALS AND HS SUBQ 11/01/20 11:30 01/30/21 11:29 11/22/20 05:51 Insulin Aspart (NovoLOG) 5 units NOVOTIAC SUBQ 11/21/20 11:50 02/18/21 06:29 11/22/20 05:51 Insulin Detemir (Levemir) 15 units QHS SUBQ 11/21/20 21:00 02/18/21 20:59 11/21/20 20:18 Methimazole (Tapazole) 10 mg DAILY ORAL 11/03/20 09:00 12/03/20 08:59 11/21/20 08:36 Metoprolol Tartrate (Lopressor) 50 mg Q12HR ORAL 11/01/20 21:00 01/30/21 20:59 11/21/20 20:10 Ondansetron HCl (Zofran) 4 mg Q6H PRN IVP Nausea & Vomiting 11/07/20 16:30 12/07/20 16:29 11/07/20 17:28 Pantoprazole (Protonix) 40 mg BID ORAL 10/31/20 18:00 11/30/20 17:44 11/21/20 17:09 Sitagliptin Phosphate (Januvia) 25 mg ACBREAKFAST ORAL 11/06/20 06:30 12/06/20 06:29 11/22/20 05:51 Tamsulosin HCl (Flomax) 0.4 mg BID ORAL 11/03/20 12:00 12/03/20 11:59 11/21/20 17:09 Vitamin D (Vitamin D) 5,000 unit DAILY ORAL 11/13/20 09:00 12/13/20 08:59 11/21/20 08:34 Last 24 Hour Vital Signs Date Time Temp Pulse Resp B/P (MAP) Pulse Ox O2 Delivery O2 Flow Rate FiO2 11/22/20 04:00 97.9 69 20 145/59 (87) 97 11/22/20 03:31 69 11/22/20 00:00 67 11/22/20 00:00 97.7 69 20 133/61 (85) 95 11/22/20 00:00 69 11/21/20 21:00 Room Air 11/21/20 20:10 76 125/58 11/21/20 20:00 97.0 76 20 125/58 (80) 96 11/21/20 20:00 68 11/21/20 17:10 74 132/58 11/21/20 16:00 74 11/21/20 16:00 98.2 74 20 132/58 (82) 98 11/21/20 12:00 97.9 66 20 110/56 (74) 99 11/21/20 12:00 64 11/21/20 09:00 Room Air 11/21/20 08:39 64 126/58 11/21/20 08:37 64 126/58 11/21/20 08:00 98.1 67 20 121/57 (78) 100 11/21/20 08:00 65 11/21/20 04:00 66 11/21/20 04:00 98.8 72 18 126/58 (80) 96 11/21/20 00:00 98.0 52 20 114/46 (68) 94 11/21/20 00:00 74 11/20/20 21:00 Room Air 11/20/20 21:00 52 112/46 11/20/20 20:00 68 11/20/20 20:00 98.0 52 20 114/46 (68) 94 11/20/20 17:04 69 135/77 11/20/20 16:00 97.4 81 18 135/77 (96) 98 11/20/20 16:00 63 11/20/20 12:00 68 11/20/20 12:00 98.7 87 20 129/91 (104) 97 11/20/20 09:00 Room Air 11/20/20 08:29 77 125/81 11/20/20 08:29 73 125/81 11/20/20 08:00 56 11/20/20 08:00 96.8 63 19 125/81 (96) 96 Intake and Output 11/21/20 11/22/20 19:00 07:00 Intake Total 550 ml 300 ml Output Total 800 ml 1200 ml Balance -250 ml -900 ml Intake Oral 550 ml 300 ml Output Urine Total 800 ml 1200 ml # Voids 2 5 Labs Test 11/19/20 09:19 11/19/20 11:48 11/19/20 17:06 11/19/20 21:19 White Blood Count 6.6 K/UL (4.8-10.8) Red Blood Count 2.84 M/UL (4.70-6.10) Hemoglobin 8.4 G/DL (14.2-18.0) Hematocrit 26.2 % (42.0-52.0) Mean Corpuscular Volume 92 FL (80-99) Mean Corpuscular Hemoglobin 29.7 PG (27.0-31.0) Mean Corpuscular Hemoglobin Concent 32.2 G/DL (32.0-36.0) Red Cell Distribution Width 13.2 % (11.6-14.8) Platelet Count 128 K/UL (150-450) Mean Platelet Volume 6.5 FL (6.5-10.1) Neutrophils (%) (Auto) 78.7 % (45.0-75.0) Lymphocytes (%) (Auto) 11.2 % (20.0-45.0) Monocytes (%) (Auto) 6.2 % (1.0-10.0) Eosinophils (%) (Auto) 2.6 % (0.0-3.0) Basophils (%) (Auto) 1.3 % (0.0-2.0) Sodium Level 136 MMOL/L (136-145) Potassium Level 4.3 MMOL/L (3.5-5.1) Chloride Level 104 MMOL/L (98-107) Carbon Dioxide Level 26 MMOL/L (21-32) Anion Gap 6 mmol/L (5-15) Blood Urea Nitrogen 35 mg/dL (7-18) Creatinine 3.0 MG/DL (0.55-1.30) Estimat Glomerular Filtration Rate 20.4 mL/min (>60) Glucose Level 210 MG/DL (74-106) Calcium Level 7.8 MG/DL (8.5-10.1) POC Whole Blood Glucose 261 MG/DL (74-106) 120 MG/DL (74-106) 294 MG/DL (74-106) Test 11/20/20 05:31 11/20/20 06:45 11/20/20 11:19 11/20/20 16:16 POC Whole Blood Glucose 91 MG/DL (74-106) 295 MG/DL (74-106) 297 MG/DL (74-106) White Blood Count 6.0 K/UL (4.8-10.8) Red Blood Count 2.76 M/UL (4.70-6.10) Hemoglobin 8.3 G/DL (14.2-18.0) Hematocrit 25.7 % (42.0-52.0) Mean Corpuscular Volume 93 FL (80-99) Mean Corpuscular Hemoglobin 30.2 PG (27.0-31.0) Mean Corpuscular Hemoglobin Concent 32.4 G/DL (32.0-36.0) Red Cell Distribution Width 13.2 % (11.6-14.8) Platelet Count 125 K/UL (150-450) Mean Platelet Volume 6.0 FL (6.5-10.1) Neutrophils (%) (Auto) 76.4 % (45.0-75.0) Lymphocytes (%) (Auto) 13.3 % (20.0-45.0) Monocytes (%) (Auto) 6.4 % (1.0-10.0) Eosinophils (%) (Auto) 3.1 % (0.0-3.0) Basophils (%) (Auto) 0.7 % (0.0-2.0) Sodium Level 139 MMOL/L (136-145) Potassium Level 4.1 MMOL/L (3.5-5.1) Chloride Level 106 MMOL/L (98-107) Carbon Dioxide Level 24 MMOL/L (21-32) Anion Gap 9 mmol/L (5-15) Blood Urea Nitrogen 32 mg/dL (7-18) Creatinine 3.1 MG/DL (0.55-1.30) Estimat Glomerular Filtration Rate 19.7 mL/min (>60) Glucose Level 105 MG/DL (74-106) Hemoglobin A1c 8.5 % (4.3-6.0) Calcium Level 8.0 MG/DL (8.5-10.1) Test 11/20/20 21:48 11/21/20 06:26 11/21/20 07:30 11/21/20 11:30 POC Whole Blood Glucose 231 MG/DL (74-106) 200 MG/DL (74-106) Thyroid Stimulating Hormone (TSH) 1.513 uiU/mL (0.358-3.740) Free Thyroxine 1.32 NG/DL (0.76-1.46) Free Triiodothyronine 1.2 pg/mL (2.3-4.2) White Blood Count 6.1 K/UL (4.8-10.8) Red Blood Count 2.38 M/UL (4.70-6.10) Hemoglobin 7.0 G/DL (14.2-18.0) Hematocrit 22.2 % (42.0-52.0) Mean Corpuscular Volume 94 FL (80-99) Mean Corpuscular Hemoglobin 29.6 PG (27.0-31.0) Mean Corpuscular Hemoglobin Concent 31.6 G/DL (32.0-36.0) Red Cell Distribution Width 12.8 % (11.6-14.8) Platelet Count 133 K/UL (150-450) Mean Platelet Volume 5.1 FL (6.5-10.1) Neutrophils (%) (Auto) 71.3 % (45.0-75.0) Lymphocytes (%) (Auto) 17.6 % (20.0-45.0) Monocytes (%) (Auto) 6.6 % (1.0-10.0) Eosinophils (%) (Auto) 3.4 % (0.0-3.0) Basophils (%) (Auto) 0.6 % (0.0-2.0) Test 11/21/20 11:56 11/21/20 17:04 11/21/20 20:15 11/22/20 05:45 POC Whole Blood Glucose 178 MG/DL (74-106) 282 MG/DL (74-106) 171 MG/DL (74-106) 205 MG/DL (74-106) Height (Feet): 5 Height (Inches): 5.00 Weight (Pounds): 150 Objective Physical Exam: Vitals: reviewed General: NAD HEENT: nc, at Neck: supple Chest: clear breath sounds bilaterally Cardiovascular: RRR, no s3, s4 Abdomen: soft, nontender, nd Extremities: no cce, normal range of motion Neuro: alert and oriented Montrell Weaver MD Nov 22, 2020 06:25
--- NOTE | 2020-11-22 06:25 | General Progress Note ---
Subjective Allergies: Coded Allergies: No Known Allergies (Unverified , 10/31/20) Subjective events noted interval notes reviewed glucose values improved Item Value Date Time Bedside Blood Glucose 205 mg/dl H 11/22/20 0551 Bedside Blood Glucose 171 mg/dl H 11/21/20 2100 Bedside Blood Glucose 282 mg/dl H 11/21/20 1713 Bedside Blood Glucose 178 mg/dl H 11/21/20 1207 Bedside Blood Glucose 200 mg/dl H 11/21/20 0632 Objective Last 24 Hour Vital Signs Date Time Temp Pulse Resp B/P (MAP) Pulse Ox O2 Delivery O2 Flow Rate FiO2 11/22/20 04:00 97.9 69 20 145/59 (87) 97 11/22/20 03:31 69 11/22/20 00:00 67 11/22/20 00:00 97.7 69 20 133/61 (85) 95 11/22/20 00:00 69 11/21/20 21:00 Room Air 11/21/20 20:10 76 125/58 11/21/20 20:00 97.0 76 20 125/58 (80) 96 11/21/20 20:00 68 11/21/20 17:10 74 132/58 11/21/20 16:00 74 11/21/20 16:00 98.2 74 20 132/58 (82) 98 11/21/20 12:00 97.9 66 20 110/56 (74) 99 11/21/20 12:00 64 11/21/20 09:00 Room Air 11/21/20 08:39 64 126/58 11/21/20 08:37 64 126/58 11/21/20 08:00 98.1 67 20 121/57 (78) 100 11/21/20 08:00 65 Intake and Output 11/21/20 11/22/20 19:00 07:00 Intake Total 550 ml 300 ml Output Total 800 ml 1200 ml Balance -250 ml -900 ml Intake Oral 550 ml 300 ml Output Urine Total 800 ml 1200 ml # Voids 2 5 Laboratory Tests 11/21/20 06:26: POC Whole Blood Glucose 200H 11/21/20 07:30: Thyroid Stimulating Hormone (TSH) 1.513, Free Thyroxine 1.32, Free Triiodothyronine 1.2L 11/21/20 11:30: White Blood Count 6.1, Red Blood Count 2.38L, Hemoglobin 7.0L, Hematocrit 22.2L, Mean Corpuscular Volume 94, Mean Corpuscular Hemoglobin 29.6, Mean Corpuscular Hemoglobin Concent 31.6L, Red Cell Distribution Width 12.8, Platelet Count 133L, Mean Platelet Volume 5.1L, Neutrophils (%) (Auto) 71.3, Lymphocytes (%) (Auto) 17.6L, Monocytes (%) (Auto) 6.6, Eosinophils (%) (Auto) 3.4H, Basophils (%) (Auto) 0.6 11/21/20 11:56: POC Whole Blood Glucose 178H 11/21/20 17:04: POC Whole Blood Glucose 282H 11/21/20 20:15: POC Whole Blood Glucose 171H 11/22/20 05:45: POC Whole Blood Glucose 205H Height (Feet): 5 Height (Inches): 5.00 Weight (Pounds): 150 Objective Current Medications Medications (Trade) Dose Ordered Sig/Manasa Route PRN Reason Start Time Stop Time Status Last Admin Dose Admin Acetaminophen (Tylenol) 500 mg Q4H PRN ORAL For Pain 11/01/20 01:00 12/01/20 00:59 11/19/20 22:08 Acetaminophen (Tylenol) 650 mg Q4H PRN RECTAL Temp >100.5 11/01/20 21:30 12/01/20 21:29 Allopurinol (Zyloprim) 200 mg DAILY ORAL 11/01/20 16:00 12/01/20 15:59 11/21/20 08:35 Amiodarone HCl (Cordarone) 200 mg DAILY ORAL 11/10/20 09:00 02/08/21 08:59 11/21/20 08:35 Chlorhexidine Gluconate (María Elena-Hex 2%) 1 applic DAILY@2000 TOPIC 11/04/20 20:00 02/02/21 19:59 11/16/20 21:34 Clonidine HCl (Catapres Tab) 0.1 mg Q4H PRN ORAL bp over 160 syst 10/31/20 17:45 01/29/21 17:44 11/01/20 09:20 Dextrose (Dextrose 50%) 25 ml Q30M PRN IV Hypoglycemia 11/01/20 07:15 01/30/21 07:14 Dextrose (Dextrose 50%) 50 ml Q30M PRN IV Hypoglycemia 11/01/20 07:15 01/30/21 07:14 Diltiazem HCl (Cardizem Tab) 90 mg BID ORAL 11/07/20 10:15 12/02/20 17:59 11/21/20 17:10 Docusate Sodium (Colace) 100 mg TWICE A DAY ORAL 10/31/20 18:00 11/30/20 17:59 11/21/20 17:08 Enoxaparin Sodium (Lovenox) 30 mg DAILY SUBQ 11/16/20 09:00 02/14/21 08:59 11/21/20 08:39 Haloperidol Lactate (Haldol) 5 mg Q6H PRN IM Agitation 11/06/20 21:30 12/21/20 21:29 11/21/20 06:31 Insulin Aspart (NovoLOG) BEFORE MEALS AND HS SUBQ 11/01/20 11:30 01/30/21 11:29 11/22/20 05:51 Insulin Aspart (NovoLOG) 5 units NOVOTIAC SUBQ 11/21/20 11:50 02/18/21 06:29 11/22/20 05:51 Insulin Detemir (Levemir) 15 units QHS SUBQ 11/21/20 21:00 02/18/21 20:59 11/21/20 20:18 Methimazole (Tapazole) 10 mg DAILY ORAL 11/03/20 09:00 12/03/20 08:59 11/21/20 08:36 Metoprolol Tartrate (Lopressor) 50 mg Q12HR ORAL 11/01/20 21:00 01/30/21 20:59 11/21/20 20:10 Ondansetron HCl (Zofran) 4 mg Q6H PRN IVP Nausea & Vomiting 11/07/20 16:30 12/07/20 16:29 11/07/20 17:28 Pantoprazole (Protonix) 40 mg BID ORAL 10/31/20 18:00 11/30/20 17:44 11/21/20 17:09 Sitagliptin Phosphate (Januvia) 25 mg ACBREAKFAST ORAL 11/06/20 06:30 12/06/20 06:29 11/22/20 05:51 Tamsulosin HCl (Flomax) 0.4 mg BID ORAL 11/03/20 12:00 12/03/20 11:59 11/21/20 17:09 Vitamin D (Vitamin D) 5,000 unit DAILY ORAL 11/13/20 09:00 12/13/20 08:59 11/21/20 08:34 Assessment/Plan Problem List: (1) Abnormal thyroid blood test ICD Codes: R79.89 - Other specified abnormal findings of blood chemistry SNOMED: 956768749, 611601430507760 (2) Diabetes mellitus out of control ICD Codes: E11.65 - Type 2 diabetes mellitus with hyperglycemia SNOMED: 78740353, 241033804 (3) Renal failure (ARF), acute on chronic ICD Codes: N17.9 - Acute kidney failure, unspecified; N18.9 - Chronic kidney disease, unspecified SNOMED: 490599868 (4) COVID-19 virus infection ICD Codes: U07.1 - COVID-19 SNOMED: 501339540 (5) DKA (diabetic ketoacidoses) ICD Codes: E11.10 - Type 2 diabetes mellitus with ketoacidosis without coma SNOMED: 379640046, 97940282 (6) NSTEMI (non-ST elevated myocardial infarction) ICD Codes: I21.4 - Non-ST elevation (NSTEMI) myocardial infarction SNOMED: 24561008 Status: progressing, unchanged Assessment/Plan: continue Levemir 15 units qhs continue Novolog 5 units ac tid continue Novolog sliding scale ac hs continue Januvia 25 mg daily thyroid function improved continue Tapazole 10 mg daily repeat TSH, free T4 in 2-3 weeks Markus Tamez MD Nov 22, 2020 06:25
[2020-11-22 06:54] LABS: BASOPHILS % (AUTO) 1.3 % (0.0-2.0); EOSINOPHILS % (AUTO) 4.4 % (0.0-3.0); HEMOGLOBIN 8.8 G/DL (14.2-18.0); LYMPHOCYTES % (AUTO) 17.9 % (20.0-45.0); MEAN CORPUSCULAR VOLUME 91 FL (80-99); MONOCYTES % (AUTO) 6.5 % (1.0-10.0); NEUTROPHILS % (AUTO) 69.9 % (45.0-75.0); PLATELET COUNT 142 K/UL (150-450); RED BLOOD COUNT 2.96 M/UL (4.70-6.10); RED CELL DISTRIBUTION WIDTH 13.9 % (11.6-14.8); WHITE BLOOD COUNT 5.1 K/UL (4.8-10.8)
--- NOTE | 2020-11-22 07:06 | NUR ---
NURSE HAND-OFF REPORT: Important Events on Shift:[finished transfusion during the shift; no transfusion reaction. Warm compress on left forearm] Patient Status: [Full code] Diet: [Renal diet] Pending Orders: [] Pending Results/Labs:[] Pending MD notification:[] Latest Vital Signs: Temperature 97.9 , Pulse 69 , B/P 145 /59 , Respiratory Rate 20 , O2 SAT 97 , Nasal Cannula, O2 Flow Rate 2.0 . Vital Sign Comment: [] EKG Rhythm: Sinus Rhythm Rhythm change?: N Notified?: Enoc Sawyer MD Response: Message left await call Latest Bhat Fall Score: 75 Fall Risk: High Risk Safety Measures: Call light Within Reach, Bed Alarm Zone 1, Side Rails Side Rails x3, Bed position Low and Locked. Fall Precautions: Yellow Socks Yellow Gown Report given to [ARPITA Mendoza].
[2020-11-22 07:12] LABS: ALBUMIN 1.6 G/DL (3.4-5.0); ALBUMIN/GLOBULIN RATIO 0.5 (1.0-2.7); BILIRUBIN,TOTAL 0.3 MG/DL (0.2-1.0); CALCIUM 8.1 MG/DL (8.5-10.1); CREATININE 2.8 MG/DL (0.55-1.30); PHOSPHORUS 3.5 MG/DL (2.5-4.9); POTASSIUM 4.6 MMOL/L (3.5-5.1)
--- NOTE | 2020-11-22 07:28 | NUR ---
NURSE NOTES: Patient seen in bed in semifowlers position asleep with no acute signs of distress. patient is on room air with oxygen saturation within normal limits. patient has a right hand 22G IV that is clean, patent and intact that is saline locked. The patient is on a P200 mattress to prevent skin breakdown. The patients bed is in lowest position locked, side rails x2, bed alarm in zone 1 and call light within reach.
[2020-11-22 08:00] VITALS: BP 138/64
[2020-11-22] MEDS: Docusate 100mg cap ORAL SCH ×2 (08:28→17:06)
[2020-11-22] MEDS: Enoxaparin 30mg Inj SUBQ SCH (08:29)
[2020-11-22] MEDS: Allopurinol 100mg Tab ORAL SCH (08:30)
[2020-11-22] MEDS: Vitamin D 1000 units Tab ORAL SCH (08:31)
[2020-11-22] MEDS: methIMAzole 10mg tab ORAL SCH (08:32)
[2020-11-22] MEDS: dilTIAZem HCl 90mg tab ORAL SCH ×2 (08:32→17:08)
[2020-11-22] MEDS: Metoprolol Tartrate 50mg tab ORAL SCH ×2 (08:33→21:13)
[2020-11-22] MEDS: Amiodarone 200mg tab ORAL SCH (08:33)
[2020-11-22] MEDS: Tamsulosin 0.4mg cap ORAL SCH ×2 (08:33→17:06)
--- NOTE | 2020-11-22 09:29 | Nephrology Progress Note ---
Assessment/Plan Problem List: (1) Renal failure (ARF), acute on chronic (2) DKA (diabetic ketoacidoses) (3) COVID-19 virus infection (4) Rhabdomyolysis (5) Abnormal thyroid blood test (6) NSTEMI (non-ST elevated myocardial infarction) Assessment 75-year-old [place] male Covid positive Acute renal failure, most likely superimposed on chronic kidney disease Diabetes mellitus, presents with severe hyperglycemia and DKA History of hypertension Plan November 22: Labs reviewed. Serum creatinine 2.8. Patient have CKD however does not require dialysis treatment at this time. Continue per consultants. November 21: No chemistry panel done today. Status quo. Patient remains full code. Continue to monitor renal parameters. Continue per consultants. November 20: Serum creatinine 3.1. Full code. No need for dialysis yet. Continue per consultants. November 19: Serum creatinine stable at 3. Full code. No dialysis needed. Continue per consultants. November 18: Serum creatinine 3. No need for dialysis. Remains full code. Continue as is. November 17: No labs drawn today. No dialysis since November 08. Plan to remove all of dialysis catheter. Check labs tomorrow if in-house. November 16: Labs reviewed. Serum creatinine lower 2.9. No need for dialysis catheter anymore. Continue as is. November 15: Labs reviewed. Serum creatinine unchanged. Calculated creatinine clearance 19 mL/h. No dialysis needed at this time. November 14: Lab reviewed. Serum creatinine 3.2 unchanged. No need for dialysis. Continue per consultants. November 13: Lab reviewed. Serum creatinine 3.2. No need for dialysis today. Continue to monitor renal parameters. Continue per consultants. November 12: Labs reviewed. Serum creatinine 3. No dialysis needed today. Continue to monitor renal parameters. November 11: Labs reviewed. Serum creatinine higher. Due for placement of a Nontunneled catheter today. We will schedule dialysis as needed. Patient's leukocytosis gradually improving. November 10: Lab reviewed. Serum creatinine rising. We will proceed with placement of a nontunneled catheter tomorrow and dialysis. Patient has leukocytosis at this time. Continue per consultants. November 09: Labs reviewed. Patient was dialyzed yesterday. Patient pulled out the dialysis catheter last night. Renal parameters stable. Continue to monitor and if dialysis needed to place a new temporary catheter. Per orders. November 08: Labs reviewed. Serum creatinine is plateauing. Due for dialysis today. We will continue to monitor renal parameters and dialysis as needed. November 07: Labs reviewed. Serum creatinine rising. IV fluid discontinued. Dialysis for tomorrow. Continue per consultants. November 06: Labs reviewed. Blood pressure stable. Medication list reviewed. Dialysis as needed. November 05: Due for dialysis today. Labs are reviewed. Blood pressure is stable. Continue to monitor renal parameters. November 04: Patient was dialyzed yesterday. 1 L ultrafiltrated. Labs reviewed. Renal parameters stable. Will attempt dialysis again tomorrow. Medication list reviewed. November 03: Labs reviewed. Serum creatinine rising. Patient has hematuria. Patient on Eliquis. Will arrange for placement of dialysis catheter and attempt to dialyze. Will start Flomax since the patient could not have a Anand catheter. Continue to monitor renal parameters. Continue per consultants. Discussed with RN. Consent for placement of nontunneled catheter ordered. Patient is also on Tapazole for high thyroid hormone. CPK is lowering. November 02: Labs reviewed. Serum creatinine up to 4. In S DU now. On Cardizem drip. Measured creatinine clearance . Patient may lead towards dialysis. Continue to monitor renal parameters. November 01: Renal parameters improving. Blood sugar is improving. Continue to monitor electrolytes renal parameters and urine output. Aim to control blood sugar and blood pressure. Avoid nephrotoxic's. Monitor CPK as it is elevated. Previously: Anand catheter Blood sugar control Slow hydration Monitor renal parameters Kidney ultrasound no hydronephrosis 2D echocardiogram ejection fraction 60 to 65%. Per orders Subjective ROS Limited/Unobtainable: No Constitutional: Reports: malaise, weakness Objective Objective Last 24 Hour Vital Signs Date Time Temp Pulse Resp B/P (MAP) Pulse Ox O2 Delivery O2 Flow Rate FiO2 11/22/20 08:33 76 138/64 11/22/20 08:32 76 138/64 11/22/20 04:00 97.9 69 20 145/59 (87) 97 11/22/20 03:31 69 11/22/20 00:00 67 11/22/20 00:00 97.7 69 20 133/61 (85) 95 11/22/20 00:00 69 11/21/20 21:00 Room Air 11/21/20 20:10 76 125/58 11/21/20 20:00 97.0 76 20 125/58 (80) 96 11/21/20 20:00 68 11/21/20 17:10 74 132/58 11/21/20 16:00 74 11/21/20 16:00 98.2 74 20 132/58 (82) 98 11/21/20 12:00 97.9 66 20 110/56 (74) 99 11/21/20 12:00 64 Intake and Output 11/21/20 11/22/20 19:00 07:00 Intake Total 550 ml 300 ml Output Total 800 ml 1200 ml Balance -250 ml -900 ml Intake Oral 550 ml 300 ml Output Urine Total 800 ml 1200 ml # Voids 2 5 Current Medications Medications (Trade) Dose Ordered Sig/Manasa Route PRN Reason Start Time Stop Time Status Last Admin Dose Admin Acetaminophen (Tylenol) 500 mg Q4H PRN ORAL For Pain 11/01/20 01:00 12/01/20 00:59 11/19/20 22:08 Acetaminophen (Tylenol) 650 mg Q4H PRN RECTAL Temp >100.5 11/01/20 21:30 12/01/20 21:29 Allopurinol (Zyloprim) 200 mg DAILY ORAL 11/01/20 16:00 12/01/20 15:59 11/22/20 08:30 Amiodarone HCl (Cordarone) 200 mg DAILY ORAL 11/10/20 09:00 02/08/21 08:59 11/22/20 08:33 Chlorhexidine Gluconate (María Elena-Hex 2%) 1 applic DAILY@2000 TOPIC 11/04/20 20:00 02/02/21 19:59 11/16/20 21:34 Clonidine HCl (Catapres Tab) 0.1 mg Q4H PRN ORAL bp over 160 syst 10/31/20 17:45 01/29/21 17:44 11/01/20 09:20 Dextrose (Dextrose 50%) 25 ml Q30M PRN IV Hypoglycemia 11/01/20 07:15 01/30/21 07:14 Dextrose (Dextrose 50%) 50 ml Q30M PRN IV Hypoglycemia 11/01/20 07:15 01/30/21 07:14 Diltiazem HCl (Cardizem Tab) 90 mg BID ORAL 11/07/20 10:15 12/02/20 17:59 11/22/20 08:32 Docusate Sodium (Colace) 100 mg TWICE A DAY ORAL 10/31/20 18:00 11/30/20 17:59 11/22/20 08:28 Enoxaparin Sodium (Lovenox) 30 mg DAILY SUBQ 11/16/20 09:00 02/14/21 08:59 11/22/20 08:29 Haloperidol Lactate (Haldol) 5 mg Q6H PRN IM Agitation 11/06/20 21:30 12/21/20 21:29 11/21/20 06:31 Insulin Aspart (NovoLOG) BEFORE MEALS AND HS SUBQ 11/01/20 11:30 01/30/21 11:29 11/22/20 05:51 Insulin Aspart (NovoLOG) 5 units NOVOTIAC SUBQ 11/21/20 11:50 02/18/21 06:29 11/22/20 05:51 Insulin Detemir (Levemir) 15 units QHS SUBQ 11/21/20 21:00 02/18/21 20:59 11/21/20 20:18 Methimazole (Tapazole) 10 mg DAILY ORAL 11/03/20 09:00 12/03/20 08:59 11/22/20 08:32 Metoprolol Tartrate (Lopressor) 50 mg Q12HR ORAL 11/01/20 21:00 01/30/21 20:59 11/22/20 08:33 Ondansetron HCl (Zofran) 4 mg Q6H PRN IVP Nausea & Vomiting 11/07/20 16:30 12/07/20 16:29 11/07/20 17:28 Pantoprazole (Protonix) 40 mg BID ORAL 10/31/20 18:00 11/30/20 17:44 11/22/20 08:32 Sitagliptin Phosphate (Januvia) 25 mg ACBREAKFAST ORAL 11/06/20 06:30 12/06/20 06:29 11/22/20 05:51 Tamsulosin HCl (Flomax) 0.4 mg BID ORAL 11/03/20 12:00 12/03/20 11:59 11/22/20 08:33 Vitamin D (Vitamin D) 5,000 unit DAILY ORAL 11/13/20 09:00 12/13/20 08:59 11/22/20 08:31 Laboratory Tests 11/21/20 11:30: White Blood Count 6.1, Red Blood Count 2.38L, Hemoglobin 7.0L, Hematocrit 22.2L, Mean Corpuscular Volume 94, Mean Corpuscular Hemoglobin 29.6, Mean Corpuscular Hemoglobin Concent 31.6L, Red Cell Distribution Width 12.8, Platelet Count 133L, Mean Platelet Volume 5.1L, Neutrophils (%) (Auto) 71.3, Lymphocytes (%) (Auto) 17.6L, Monocytes (%) (Auto) 6.6, Eosinophils (%) (Auto) 3.4H, Basophils (%) (Au to) 0.6 11/21/20 11:56: POC Whole Blood Glucose 178H 11/21/20 17:04: POC Whole Blood Glucose 282H 11/21/20 20:15: POC Whole Blood Glucose 171H 11/22/20 05:45: POC Whole Blood Glucose 205H 11/22/20 05:57: White Blood Count 5.1, Red Blood Count 2.96L, Hemoglobin 8.8L, Hematocrit 27.0L, Mean Corpuscular Volume 91, Mean Corpuscular Hemoglobin 29.6, Mean Corpuscular Hemoglobin Concent 32.4, Red Cell Distribution Width 13.9, Platelet Count 142L, Mean Platelet Volume 6.2L, Neutrophils (%) (Auto) 69.9, Lymphocytes (%) (Auto) 17.9L, Monocytes (%) (Auto) 6.5, Eosinophils (%) (Auto) 4.4H, Basophils (%) (Auto) 1.3, Sodium Level 138, Potassium Level 4.6, Chloride Level 107, Carbon Dioxide Level 24, Anion Gap 8, Blood Urea Nitrogen 32H, Creatinine 2.8H, Estimat Glomerular Filtration Rate 22.1, Glucose Level 222H, Calcium Level 8.1L, Phosphorus Level 3.5, Magnesium Level 1.9, Total Bilirubin 0.3, Aspartate Amino Transf (AST/SGOT) 13L, Alanine Aminotransferase (ALT/SGPT) 15, Alkaline Phosphatase 89, C-Reactive Protein, Quantitative 1.7H, Pro-B-Type Natriuretic Peptide 1138H, Total Protein 5.1L, Albumin 1.6L, Globulin 3.5, Albumin/Globulin Ratio 0.5L Height (Feet): 5 Height (Inches): 5.00 Weight (Pounds): 150 General Appearance: no apparent distress, lethargic Cardiovascular: normal rate Respiratory/Chest: decreased breath sounds Abdomen: distended Garth Buckley MD Nov 22, 2020 09:29
--- NOTE | 2020-11-22 10:23 | NUR ---
NURSE NOTES: Assessed patients Left arm due to previous infiltration. Left forearm IV site had no more swelling, site was soft, no pain of 0/10 and patients neurovascular assessment was within normal limits on left arm. Patients left arm IV site still showed bruising coloration. The patients arm was remained elevated.
--- NOTE | 2020-11-22 10:26 | Surgery Progress Note ---
Surgery Progress Note Subjective Procedure Performed Right femoral temporary hemodialysis catheter insertion Additional Comments cr improved plan removal line today discussed with nephro Objective Last 24 Hour Vital Signs Date Time Temp Pulse Resp B/P (MAP) Pulse Ox O2 Delivery O2 Flow Rate FiO2 11/22/20 09:00 Room Air 11/22/20 08:33 76 138/64 11/22/20 08:32 76 138/64 11/22/20 08:00 65 11/22/20 08:00 98.2 76 20 138/64 (88) 97 11/22/20 04:00 97.9 69 20 145/59 (87) 97 11/22/20 03:31 69 11/22/20 00:00 67 11/22/20 00:00 97.7 69 20 133/61 (85) 95 11/22/20 00:00 69 11/21/20 21:00 Room Air 11/21/20 20:10 76 125/58 11/21/20 20:00 97.0 76 20 125/58 (80) 96 11/21/20 20:00 68 11/21/20 17:10 74 132/58 11/21/20 16:00 74 11/21/20 16:00 98.2 74 20 132/58 (82) 98 11/21/20 12:00 97.9 66 20 110/56 (74) 99 11/21/20 12:00 64 I&O Intake and Output 11/21/20 11/22/20 19:00 07:00 Intake Total 550 ml 300 ml Output Total 800 ml 1200 ml Balance -250 ml -900 ml Intake Oral 550 ml 300 ml Output Urine Total 800 ml 1200 ml # Voids 2 5 Dressing: dry Wound: clean Cardiovascular: RSR Respiratory: decreased breath sounds Abdomen: soft, non-tender, present bowel sounds, other, non-distended Extremities: edema, no tenderness, no cyanosis Laboratory Tests Test 11/21/20 11:30 11/21/20 11:56 11/21/20 17:04 11/21/20 20:15 White Blood Count 6.1 K/UL (4.8-10.8) Red Blood Count 2.38 M/UL (4.70-6.10) L Hemoglobin 7.0 G/DL (14.2-18.0) L Hematocrit 22.2 % (42.0-52.0) L Mean Corpuscular Volume 94 FL (80-99) Mean Corpuscular Hemoglobin 29.6 PG (27.0-31.0) Mean Corpuscular Hemoglobin Concent 31.6 G/DL (32.0-36.0) L Red Cell Distribution Width 12.8 % (11.6-14.8) Platelet Count 133 K/UL (150-450) L Mean Platelet Volume 5.1 FL (6.5-10.1) L Neutrophils (%) (Auto) 71.3 % (45.0-75.0) Lymphocytes (%) (Auto) 17.6 % (20.0-45.0) L Monocytes (%) (Auto) 6.6 % (1.0-10.0) Eosinophils (%) (Auto) 3.4 % (0.0-3.0) H Basophils (%) (Auto) 0.6 % (0.0-2.0) POC Whole Blood Glucose 178 MG/DL (74-106) H 282 MG/DL (74-106) H 171 MG/DL (74-106) H Test 11/22/20 05:45 11/22/20 05:57 POC Whole Blood Glucose 205 MG/DL (74-106) H White Blood Count 5.1 K/UL (4.8-10.8) Red Blood Count 2.96 M/UL (4.70-6.10) L Hemoglobin 8.8 G/DL (14.2-18.0) L Hematocrit 27.0 % (42.0-52.0) L Mean Corpuscular Volume 91 FL (80-99) Mean Corpuscular Hemoglobin 29.6 PG (27.0-31.0) Mean Corpuscular Hemoglobin Concent 32.4 G/DL (32.0-36.0) Red Cell Distribution Width 13.9 % (11.6-14.8) Platelet Count 142 K/UL (150-450) L Mean Platelet Volume 6.2 FL (6.5-10.1) L Neutrophils (%) (Auto) 69.9 % (45.0-75.0) Lymphocytes (%) (Auto) 17.9 % (20.0-45.0) L Monocytes (%) (Auto) 6.5 % (1.0-10.0) Eosinophils (%) (Auto) 4.4 % (0.0-3.0) H Basophils (%) (Auto) 1.3 % (0.0-2.0) Sodium Level 138 MMOL/L (136-145) Potassium Level 4.6 MMOL/L (3.5-5.1) Chloride Level 107 MMOL/L (98-107) Carbon Dioxide Level 24 MMOL/L (21-32) Anion Gap 8 mmol/L (5-15) Blood Urea Nitrogen 32 mg/dL (7-18) H Creatinine 2.8 MG/DL (0.55-1.30) H Estimat Glomerular Filtration Rate 22.1 mL/min (>60) Glucose Level 222 MG/DL (74-106) H Calcium Level 8.1 MG/DL (8.5-10.1) L Phosphorus Level 3.5 MG/DL (2.5-4.9) Magnesium Level 1.9 MG/DL (1.8-2.4) Total Bilirubin 0.3 MG/DL (0.2-1.0) Aspartate Amino Transf (AST/SGOT) 13 U/L (15-37) L Alanine Aminotransferase (ALT/SGPT) 15 U/L (12-78) Alkaline Phosphatase 89 U/L (46-116) C-Reactive Protein, Quantitative 1.7 mg/dL (0.00-0.90) H Pro-B-Type Natriuretic Peptide 1138 pg/mL (0-125) H Total Protein 5.1 G/DL (6.4-8.2) L Albumin 1.6 G/DL (3.4-5.0) L Globulin 3.5 g/dL Albumin/Globulin Ratio 0.5 (1.0-2.7) L Plan Problems: (1) DKA (diabetic ketoacidoses) (2) Renal failure (ARF), acute on chronic Assessment & Plan: s/p temp HD line recovering renal function not stable hold on removal of line (3) COVID-19 virus infection Assessment & Plan: 75-year-old male Covid positive renal insufficiency recently had temporary dialysis catheter placement develop leukocytosis soon after. Vitals noted. Exam stable. Catheter was evaluated no acute active inflammatory or infectious process identified. Catheter is clean dry intact. The dressings are not saturated. There is no active bleeding identified. There is no signs of active infection. Leukocytosis anterior collated to medications currently given for COVID-19 infection. Will monitor closely to ensure no active development of infection or related to catheter placement. Thank you for let me participate patient's care will follow with recommendations trend leukocytosis cont dressings cont care plan as noted cont HD trend renal function (4) Rhabdomyolysis Assessment & Plan: improved resuscitated no n/v tolerating diet labs improved likely secondary to down DAILY ESTIMATED NEEDS: Needs based on DM, pulmonary 68.4kg 25-30 kcals/kg 5010-6145 total kcals 1-1.5 g protein/kg 68-102 g total protein 25-30 mL/kg 7346-6704 total fluid mLs NUTRITION DIAGNOSIS: Altered nutrition related lab values r/t DKA as evidenced by Uglu 4+ on adm, small acetone detected, BG 1087 upon adm-> now improved, A1C 8.1. CURRENT DIET: Renal/ pureed moist+ Ensure TID PO DIET RECOMMENDATIONS: RENAL/ CCHO MED diet (texture as tolerated) ADDITIONAL RECOMMENDATIONS: 1) Monitor renal fxn and lytes, continuity of HD last HD 11/08, K, phos, mag wnl 2) Monitor BGs closely for hypoglycemia w/ insulin regimen 3) Maintain calibrated bed scale wts 4) Nephrovite x 1 5) Monitor for continued improved intake - rec to decrease HPN to QD at this time. Rec Nepro (5) Diabetes mellitus out of control (6) Abnormal thyroid blood test (7) NSTEMI (non-ST elevated myocardial infarction) Additional Comments of note, on 11/21 patient was seen and examined but unfortunately was unable to write note for log in issues Norberto Steele Nov 22, 2020 10:26
--- NOTE | 2020-11-22 11:17 | Pulmonology Progress Note ---
Subjective ROS Limited/Unobtainable: No Interval Events: none major reported per nursing Constitutional: Reports: no symptoms, other - doing better Gastrointestinal/Abdominal: Reports: diarrhea - C. diff negative Allergies: Coded Allergies: No Known Allergies (Unverified , 10/31/20) Objective Last 24 Hour Vital Signs Date Time Temp Pulse Resp B/P (MAP) Pulse Ox O2 Delivery O2 Flow Rate FiO2 11/22/20 09:00 Room Air 11/22/20 08:33 76 138/64 11/22/20 08:32 76 138/64 11/22/20 08:00 65 11/22/20 08:00 98.2 76 20 138/64 (88) 97 11/22/20 04:00 97.9 69 20 145/59 (87) 97 11/22/20 03:31 69 11/22/20 00:00 67 11/22/20 00:00 97.7 69 20 133/61 (85) 95 11/22/20 00:00 69 11/21/20 21:00 Room Air 11/21/20 20:10 76 125/58 11/21/20 20:00 97.0 76 20 125/58 (80) 96 11/21/20 20:00 68 11/21/20 17:10 74 132/58 11/21/20 16:00 74 11/21/20 16:00 98.2 74 20 132/58 (82) 98 11/21/20 12:00 97.9 66 20 110/56 (74) 99 11/21/20 12:00 64 Intake and Output 11/21/20 11/22/20 19:00 07:00 Intake Total 550 ml 300 ml Output Total 800 ml 1200 ml Balance -250 ml -900 ml Intake Oral 550 ml 300 ml Output Urine Total 800 ml 1200 ml # Voids 2 5 Objective now on room air General Appearance: WD/WN, no acute distress HEENT: atraumatic Respiratory: chest wall non-tender Cardiovascular: normal rate, regular rhythm Abdomen: soft, non tender Laboratory Tests 11/21/20 11:30: White Blood Count 6.1, Red Blood Count 2.38L, Hemoglobin 7.0L, Hematocrit 22.2L, Mean Corpuscular Volume 94, Mean Corpuscular Hemoglobin 29.6, Mean Corpuscular Hemoglobin Concent 31.6L, Red Cell Distribution Width 12.8, Platelet Count 133L, Mean Platelet Volume 5.1L, Neutrophils (%) (Auto) 71.3, Lymphocytes (%) (Auto) 17.6L, Monocytes (%) (Auto) 6.6, Eosinophils (%) (Auto) 3.4H, Basophils (%) (Auto) 0.6 11/21/20 11:56: POC Whole Blood Glucose 178H 11/21/20 17:04: POC Whole Blood Glucose 282H 11/21/20 20:15: POC Whole Blood Glucose 171H 11/22/20 05:45: POC Whole Blood Glucose 205H 11/22/20 05:57: White Blood Count 5.1, Red Blood Count 2.96L, Hemoglobin 8.8L, Hematocrit 27.0L, Mean Corpuscular Volume 91, Mean Corpuscular Hemoglobin 29.6, Mean Corpuscular Hemoglobin Concent 32.4, Red Cell Distribution Width 13.9, Platelet Count 142L, Mean Platelet Volume 6.2L, Neutrophils (%) (Auto) 69.9, Lymphocytes (%) (Auto) 17.9L, Monocytes (%) (Auto) 6.5, Eosinophils (%) (Auto) 4.4H, Basophils (%) (Auto) 1.3, Sodium Level 138, Potassium Level 4.6, Chloride Level 107, Carbon Dioxide Level 24, Anion Gap 8, Blood Urea Nitrogen 32H, Creatinine 2.8H, Estimat Glomerular Filtration Rate 22.1, Glucose Level 222H, Calcium Level 8.1L, Phosphorus Level 3.5, Magnesium Level 1.9, Total Bilirubin 0.3, Aspartate Amino Transf (AST/SGOT) 13L, Alanine Aminotransferase (ALT/SGPT) 15, Alkaline Phosphatase 89, C-Reactive Protein, Quantitative 1.7H, Pro-B-Type Natriuretic Peptide 1138H, Total Protein 5.1L, Albumin 1.6L, Globulin 3.5, Albumin/Globulin Ratio 0.5L Current Medications Medications (Trade) Dose Ordered Sig/Manasa Route PRN Reason Start Time Stop Time Status Last Admin Dose Admin Acetaminophen (Tylenol) 500 mg Q4H PRN ORAL For Pain 11/01/20 01:00 12/01/20 00:59 11/19/20 22:08 Acetaminophen (Tylenol) 650 mg Q4H PRN RECTAL Temp >100.5 11/01/20 21:30 12/01/20 21:29 Allopurinol (Zyloprim) 200 mg DAILY ORAL 11/01/20 16:00 12/01/20 15:59 11/22/20 08:30 Amiodarone HCl (Cordarone) 200 mg DAILY ORAL 11/10/20 09:00 02/08/21 08:59 11/22/20 08:33 Chlorhexidine Gluconate (María Elena-Hex 2%) 1 applic DAILY@2000 TOPIC 11/04/20 20:00 02/02/21 19:59 11/16/20 21:34 Clonidine HCl (Catapres Tab) 0.1 mg Q4H PRN ORAL bp over 160 syst 10/31/20 17:45 01/29/21 17:44 11/01/20 09:20 Dextrose (Dextrose 50%) 25 ml Q30M PRN IV Hypoglycemia 11/01/20 07:15 01/30/21 07:14 Dextrose (Dextrose 50%) 50 ml Q30M PRN IV Hypoglycemia 11/01/20 07:15 01/30/21 07:14 Diltiazem HCl (Cardizem Tab) 90 mg BID ORAL 11/07/20 10:15 12/02/20 17:59 11/22/20 08:32 Docusate Sodium (Colace) 100 mg TWICE A DAY ORAL 10/31/20 18:00 11/30/20 17:59 11/22/20 08:28 Enoxaparin Sodium (Lovenox) 30 mg DAILY SUBQ 11/16/20 09:00 02/14/21 08:59 11/22/20 08:29 Haloperidol Lactate (Haldol) 5 mg Q6H PRN IM Agitation 11/06/20 21:30 12/21/20 21:29 11/21/20 06:31 Insulin Aspart (NovoLOG) BEFORE MEALS AND HS SUBQ 11/01/20 11:30 01/30/21 11:29 11/22/20 05:51 Insulin Aspart (NovoLOG) 5 units NOVOTIAC SUBQ 11/21/20 11:50 02/18/21 06:29 11/22/20 05:51 Insulin Detemir (Levemir) 15 units QHS SUBQ 11/21/20 21:00 02/18/21 20:59 11/21/20 20:18 Methimazole (Tapazole) 10 mg DAILY ORAL 11/03/20 09:00 12/03/20 08:59 11/22/20 08:32 Metoprolol Tartrate (Lopressor) 50 mg Q12HR ORAL 11/01/20 21:00 01/30/21 20:59 11/22/20 08:33 Ondansetron HCl (Zofran) 4 mg Q6H PRN IVP Nausea & Vomiting 11/07/20 16:30 12/07/20 16:29 11/07/20 17:28 Pantoprazole (Protonix) 40 mg BID ORAL 10/31/20 18:00 11/30/20 17:44 11/22/20 08:32 Sitagliptin Phosphate (Januvia) 25 mg ACBREAKFAST ORAL 11/06/20 06:30 12/06/20 06:29 11/22/20 05:51 Tamsulosin HCl (Flomax) 0.4 mg BID ORAL 11/03/20 12:00 12/03/20 11:59 11/22/20 08:33 Vitamin D (Vitamin D) 5,000 unit DAILY ORAL 11/13/20 09:00 12/13/20 08:59 11/22/20 08:31 Assessment/Plan Assessment/Plan 1. Non-ST elevation myocardial infarction. - cardiology following 2. Diabetic ketoacidosis - seen by endocrinology - continue fluids - on insulin 3. Atrial flutter with rapid ventricular response. - Continue metoprolol 50 mg b.i.d. 4. COVID positive pneumonia. - s/p Decadron (11/03-11/12) - Supplemental O2 - saturating well on room air - CXR 11/04 developing b/l infilitrates 5. Renal failure - nephrology following 6. Accelerated hypertension. 7. Hyperthyroidism - Dr. Tamez following 8. Diarrhea - C. diff negative 9. DVT ppx - s/p Eliquis - We will restart low dose Lovenox given eGFR <30 - ok to continue if plt >50K per heme onc 10. Anemia - s/p transfusion (11/16) Medically stable for discharge from pulmonary standpoint PT eval recommends SNF placement The care for this patient was discussed with my supervising physician Time spent for this case was approximately 31 minutes Singh Buchanan Nov 22, 2020 11:17
--- NOTE | 2020-11-22 11:22 | Infectious Diseases Prog Note ---
Assessment/Plan Assessment/Plan A; COVID19 pneumonia Hypoxemia Acute renal failure improving Rhabdomyolysis Diarrhea, C. difficile negative DKA Hyperthyroidism Anemia Leukocytosis improving Dementia P; Finished Dexamethasone course Observe off antibiotic Subjective ROS Limited/Unobtainable: Yes Allergies: Coded Allergies: No Known Allergies (Unverified , 10/31/20) Objective Last 24 Hour Vital Signs Date Time Temp Pulse Resp B/P (MAP) Pulse Ox O2 Delivery O2 Flow Rate FiO2 11/22/20 09:00 Room Air 11/22/20 08:33 76 138/64 11/22/20 08:32 76 138/64 11/22/20 08:00 65 11/22/20 08:00 98.2 76 20 138/64 (88) 97 11/22/20 04:00 97.9 69 20 145/59 (87) 97 11/22/20 03:31 69 11/22/20 00:00 67 11/22/20 00:00 97.7 69 20 133/61 (85) 95 11/22/20 00:00 69 11/21/20 21:00 Room Air 11/21/20 20:10 76 125/58 11/21/20 20:00 97.0 76 20 125/58 (80) 96 11/21/20 20:00 68 11/21/20 17:10 74 132/58 11/21/20 16:00 74 11/21/20 16:00 98.2 74 20 132/58 (82) 98 11/21/20 12:00 97.9 66 20 110/56 (74) 99 11/21/20 12:00 64 Height (Feet): 5 Height (Inches): 5.00 Weight (Pounds): 150 General Appearance: no acute distress HEENT: mucous membranes moist Respiratory/Chest: lungs clear Cardiovascular: normal rate Abdomen: soft, non tender Skin: other - bruises Neurologic/Psychiatric: alert, responsive Laboratory Tests Test 11/21/20 11:30 11/21/20 11:56 11/21/20 17:04 11/21/20 20:15 White Blood Count 6.1 K/UL (4.8-10.8) Red Blood Count 2.38 M/UL (4.70-6.10) L Hemoglobin 7.0 G/DL (14.2-18.0) L Hematocrit 22.2 % (42.0-52.0) L Mean Corpuscular Volume 94 FL (80-99) Mean Corpuscular Hemoglobin 29.6 PG (27.0-31.0) Mean Corpuscular Hemoglobin Concent 31.6 G/DL (32.0-36.0) L Red Cell Distribution Width 12.8 % (11.6-14.8) Platelet Count 133 K/UL (150-450) L Mean Platelet Volume 5.1 FL (6.5-10.1) L Neutrophils (%) (Auto) 71.3 % (45.0-75.0) Lymphocytes (%) (Auto) 17.6 % (20.0-45.0) L Monocytes (%) (Auto) 6.6 % (1.0-10.0) Eosinophils (%) (Auto) 3.4 % (0.0-3.0) H Basophils (%) (Auto) 0.6 % (0.0-2.0) POC Whole Blood Glucose 178 MG/DL (74-106) H 282 MG/DL (74-106) H 171 MG/DL (74-106) H Test 11/22/20 05:45 11/22/20 05:57 POC Whole Blood Glucose 205 MG/DL (74-106) H White Blood Count 5.1 K/UL (4.8-10.8) Red Blood Count 2.96 M/UL (4.70-6.10) L Hemoglobin 8.8 G/DL (14.2-18.0) L Hematocrit 27.0 % (42.0-52.0) L Mean Corpuscular Volume 91 FL (80-99) Mean Corpuscular Hemoglobin 29.6 PG (27.0-31.0) Mean Corpuscular Hemoglobin Concent 32.4 G/DL (32.0-36.0) Red Cell Distribution Width 13.9 % (11.6-14.8) Platelet Count 142 K/UL (150-450) L Mean Platelet Volume 6.2 FL (6.5-10.1) L Neutrophils (%) (Auto) 69.9 % (45.0-75.0) Lymphocytes (%) (Auto) 17.9 % (20.0-45.0) L Monocytes (%) (Auto) 6.5 % (1.0-10.0) Eosinophils (%) (Auto) 4.4 % (0.0-3.0) H Basophils (%) (Auto) 1.3 % (0.0-2.0) Sodium Level 138 MMOL/L (136-145) Potassium Level 4.6 MMOL/L (3.5-5.1) Chloride Level 107 MMOL/L (98-107) Carbon Dioxide Level 24 MMOL/L (21-32) Anion Gap 8 mmol/L (5-15) Blood Urea Nitrogen 32 mg/dL (7-18) H Creatinine 2.8 MG/DL (0.55-1.30) H Estimat Glomerular Filtration Rate 22.1 mL/min (>60) Glucose Level 222 MG/DL (74-106) H Calcium Level 8.1 MG/DL (8.5-10.1) L Phosphorus Level 3.5 MG/DL (2.5-4.9) Magnesium Level 1.9 MG/DL (1.8-2.4) Total Bilirubin 0.3 MG/DL (0.2-1.0) Aspartate Amino Transf (AST/SGOT) 13 U/L (15-37) L Alanine Aminotransferase (ALT/SGPT) 15 U/L (12-78) Alkaline Phosphatase 89 U/L (46-116) C-Reactive Protein, Quantitative 1.7 mg/dL (0.00-0.90) H Pro-B-Type Natriuretic Peptide 1138 pg/mL (0-125) H Total Protein 5.1 G/DL (6.4-8.2) L Albumin 1.6 G/DL (3.4-5.0) L Globulin 3.5 g/dL Albumin/Globulin Ratio 0.5 (1.0-2.7) L Current Medications Medications (Trade) Dose Ordered Sig/Manasa Route PRN Reason Start Time Stop Time Status Last Admin Dose Admin Acetaminophen (Tylenol) 500 mg Q4H PRN ORAL For Pain 11/01/20 01:00 12/01/20 00:59 11/19/20 22:08 Acetaminophen (Tylenol) 650 mg Q4H PRN RECTAL Temp >100.5 11/01/20 21:30 12/01/20 21:29 Allopurinol (Zyloprim) 200 mg DAILY ORAL 11/01/20 16:00 12/01/20 15:59 11/22/20 08:30 Amiodarone HCl (Cordarone) 200 mg DAILY ORAL 11/10/20 09:00 02/08/21 08:59 11/22/20 08:33 Chlorhexidine Gluconate (María Elena-Hex 2%) 1 applic DAILY@2000 TOPIC 11/04/20 20:00 02/02/21 19:59 11/16/20 21:34 Clonidine HCl (Catapres Tab) 0.1 mg Q4H PRN ORAL bp over 160 syst 10/31/20 17:45 01/29/21 17:44 11/01/20 09:20 Dextrose (Dextrose 50%) 25 ml Q30M PRN IV Hypoglycemia 11/01/20 07:15 01/30/21 07:14 Dextrose (Dextrose 50%) 50 ml Q30M PRN IV Hypoglycemia 11/01/20 07:15 01/30/21 07:14 Diltiazem HCl (Cardizem Tab) 90 mg BID ORAL 11/07/20 10:15 12/02/20 17:59 11/22/20 08:32 Docusate Sodium (Colace) 100 mg TWICE A DAY ORAL 10/31/20 18:00 11/30/20 17:59 11/22/20 08:28 Enoxaparin Sodium (Lovenox) 30 mg DAILY SUBQ 11/16/20 09:00 02/14/21 08:59 11/22/20 08:29 Haloperidol Lactate (Haldol) 5 mg Q6H PRN IM Agitation 11/06/20 21:30 12/21/20 21:29 11/21/20 06:31 Insulin Aspart (NovoLOG) BEFORE MEALS AND HS SUBQ 11/01/20 11:30 01/30/21 11:29 11/22/20 05:51 Insulin Aspart (NovoLOG) 5 units NOVOTIAC SUBQ 11/21/20 11:50 02/18/21 06:29 11/22/20 05:51 Insulin Detemir (Levemir) 15 units QHS SUBQ 11/21/20 21:00 02/18/21 20:59 11/21/20 20:18 Methimazole (Tapazole) 10 mg DAILY ORAL 11/03/20 09:00 12/03/20 08:59 11/22/20 08:32 Metoprolol Tartrate (Lopressor) 50 mg Q12HR ORAL 11/01/20 21:00 01/30/21 20:59 11/22/20 08:33 Ondansetron HCl (Zofran) 4 mg Q6H PRN IVP Nausea & Vomiting 11/07/20 16:30 12/07/20 16:29 11/07/20 17:28 Pantoprazole (Protonix) 40 mg BID ORAL 10/31/20 18:00 11/30/20 17:44 11/22/20 08:32 Sitagliptin Phosphate (Januvia) 25 mg ACBREAKFAST ORAL 11/06/20 06:30 12/06/20 06:29 11/22/20 05:51 Tamsulosin HCl (Flomax) 0.4 mg BID ORAL 11/03/20 12:00 12/03/20 11:59 11/22/20 08:33 Vitamin D (Vitamin D) 5,000 unit DAILY ORAL 11/13/20 09:00 12/13/20 08:59 11/22/20 08:31 Reji Connelly MD Nov 22, 2020 11:22
--- NOTE | 2020-11-22 11:55 | Cardiac Electrophysiology PN ---
Assessment/Plan Assessment/Plan 1. NSTEMI with troponin of 0.25 and 0.35 in this patient with DKA as well as atrial flutter with rapid ventricular response. On metoprolol 50 mg b.i.d. EF 65% 2. Atrial flutter with RVR On metoprolol 50 mg bid, Cardizem 90 bid and Amiodarone 200 po daily Off Eliquis for hematuria 3. Diabetic ketoacidosis with glucose of more than 1000. 4. Hypertension. On Lopressor 50 bid and Cardizem 90 bid 5. COVID positive pneumonia. 6. Acute Renal failure in the setting of total CK of 1900, maybe rhabdomyolysis- induced renal failure. On HD via RFV Yazan by Dr. Buckley. RFV Yazan pulled out by patient. S/P New RIJ Yazan on 11/11/20 that was then removed on 11/17 as no more need for HD 7. Anemia. S/P PRBC 11/16 DW RN DC SNIF today Subjective Subjective Pulled out his RFV Yazan catheter on 11/08/20. S/P new Yazan catheter placement 11/11/20. R IJ HD catheter removed 11/17/20 S/P PRBC On RA, feeding himself In SR on Amio, Cardizem and metoprolol. SNIF today pending Objective Last 24 Hour Vital Signs Date Time Temp Pulse Resp B/P (MAP) Pulse Ox O2 Delivery O2 Flow Rate FiO2 11/22/20 09:00 Room Air 11/22/20 08:33 76 138/64 11/22/20 08:32 76 138/64 11/22/20 08:00 65 11/22/20 08:00 98.2 76 20 138/64 (88) 97 11/22/20 04:00 97.9 69 20 145/59 (87) 97 11/22/20 03:31 69 11/22/20 00:00 67 11/22/20 00:00 97.7 69 20 133/61 (85) 95 11/22/20 00:00 69 11/21/20 21:00 Room Air 11/21/20 20:10 76 125/58 11/21/20 20:00 97.0 76 20 125/58 (80) 96 11/21/20 20:00 68 11/21/20 17:10 74 132/58 11/21/20 16:00 74 11/21/20 16:00 98.2 74 20 132/58 (82) 98 11/21/20 12:00 97.9 66 20 110/56 (74) 99 11/21/20 12:00 64 Intake and Output 11/21/20 11/22/20 19:00 07:00 Intake Total 550 ml 300 ml Output Total 800 ml 1200 ml Balance -250 ml -900 ml Intake Oral 550 ml 300 ml Output Urine Total 800 ml 1200 ml # Voids 2 5 Laboratory Tests Test 11/21/20 11:56 11/21/20 17:04 11/21/20 20:15 11/22/20 05:45 POC Whole Blood Glucose 178 MG/DL (74-106) H 282 MG/DL (74-106) H 171 MG/DL (74-106) H 205 MG/DL (74-106) H Test 11/22/20 05:57 White Blood Count 5.1 K/UL (4.8-10.8) Red Blood Count 2.96 M/UL (4.70-6.10) L Hemoglobin 8.8 G/DL (14.2-18.0) L Hematocrit 27.0 % (42.0-52.0) L Mean Corpuscular Volume 91 FL (80-99) Mean Corpuscular Hemoglobin 29.6 PG (27.0-31.0) Mean Corpuscular Hemoglobin Concent 32.4 G/DL (32.0-36.0) Red Cell Distribution Width 13.9 % (11.6-14.8) Platelet Count 142 K/UL (150-450) L Mean Platelet Volume 6.2 FL (6.5-10.1) L Neutrophils (%) (Auto) 69.9 % (45.0-75.0) Lymphocytes (%) (Auto) 17.9 % (20.0-45.0) L Monocytes (%) (Auto) 6.5 % (1.0-10.0) Eosinophils (%) (Auto) 4.4 % (0.0-3.0) H Basophils (%) (Auto) 1.3 % (0.0-2.0) Sodium Level 138 MMOL/L (136-145) Potassium Level 4.6 MMOL/L (3.5-5.1) Chloride Level 107 MMOL/L (98-107) Carbon Dioxide Level 24 MMOL/L (21-32) Anion Gap 8 mmol/L (5-15) Blood Urea Nitrogen 32 mg/dL (7-18) H Creatinine 2.8 MG/DL (0.55-1.30) H Estimat Glomerular Filtration Rate 22.1 mL/min (>60) Glucose Level 222 MG/DL (74-106) H Calcium Level 8.1 MG/DL (8.5-10.1) L Phosphorus Level 3.5 MG/DL (2.5-4.9) Magnesium Level 1.9 MG/DL (1.8-2.4) Total Bilirubin 0.3 MG/DL (0.2-1.0) Aspartate Amino Transf (AST/SGOT) 13 U/L (15-37) L Alanine Aminotransferase (ALT/SGPT) 15 U/L (12-78) Alkaline Phosphatase 89 U/L (46-116) C-Reactive Protein, Quantitative 1.7 mg/dL (0.00-0.90) H Pro-B-Type Natriuretic Peptide 1138 pg/mL (0-125) H Total Protein 5.1 G/DL (6.4-8.2) L Albumin 1.6 G/DL (3.4-5.0) L Globulin 3.5 g/dL Albumin/Globulin Ratio 0.5 (1.0-2.7) L Objective HEAD AND NECK: No JVD. LUNGS: Clear. CARDIOVASCULAR: Shows regular S1 and S2 with no gallop. ABDOMEN: Soft. EXTREMITIES: Right IJ Yazan is removed. No pitting edema. Sivakumar Escalante MD Nov 22, 2020 11:55
[2020-11-22 12:00] VITALS: BP 133/64
--- NOTE | 2020-11-22 14:32 | NUR ---
CASE MANAGEMENT:REVIEW 11/22/20 SI: NSTEMI. COVID PNA. RENAL FAILURE 97.9 61 20 133/64 96% ON RA H/H-8.8/27.0 BUN+32 CR+2.8 GLUCOSE+222 IS: LEVEMIR SQ QHS NOVOLOG SQ TID LOVENOX SQ QD VIT D PO QD AMIODARONE PO QD CARDIZEM PO BID JANUVIA PO QAM FLOMAX PO BID TAPAZOLE PO QD LOPRESSOR PO Q12 ALLOPURINOL PO QD PROTONIX PO BID : TELEMETRY STATUS DCP: FROM HOME PLAN: REFER TO SNF FOR SHORT STAY OT/PT REFERRED TO [facility]
[2020-11-22 16:00] VITALS: BP 128/54
--- NOTE | 2020-11-22 16:19 | NUR ---
INSURANCE CLINICALS AND REVIEW FAXED TO DERICK ELLIS T: [phone] F: [phone]
--- NOTE | 2020-11-22 17:25 | NUR ---
*-*DISCAHRGE PLANNING*-* PATIENT HAS BEE REFERRED TO: [facility] P: [phone] S/W MARKUS, CANNOT ACCEPT PATIENT.
--- NOTE | 2020-11-22 17:27 | NUR ---
*-*DISCHARGE PLANNING*-* PATIENT HAS BEEN REFERRED TO: [facility] P: [phone] NO ANSWER, PHONE CONSTANTLY [facility]. [facility] P: [phone] S/W [facility]ON[facility], ADMISSION GONE, CALL BACK TOMORROW TO SPEAK WITH KRISTY.
--- NOTE | 2020-11-22 18:35 | NUR ---
NURSE HAND-OFF REPORT: Important Events on Shift:[BS control, finding SNF placement] Patient Status: [Full code] Diet: [Renal Puree Moist] Pending Orders: [N/A] Pending Results/Labs:[N/A] Pending MD notification:[N/A] Latest Vital Signs: Temperature 98.2 , Pulse 61 , B/P 128 /54 , Respiratory Rate 20 , O2 SAT 98 , Nasal Cannula, O2 Flow Rate 2.0 . Vital Sign Comment: [] EKG Rhythm: Sinus Bradycardia Rhythm change?: Amari ANDERSON Notified?: Enoc Sawyer MD Response: Message left await call Latest Bhat Fall Score: 75 Fall Risk: High Risk Safety Measures: Call light Within Reach, Bed Alarm Zone 1, Side Rails Side Rails x3, Bed position Low and Locked. Fall Precautions: Yellow Socks Yellow Gown Report given to [ARPITA Adamson].
--- NOTE | 2020-11-22 19:00 | NUR ---
NURSE NOTES: Received patient from ARPITA Mendoza. Patient AAOx2-3, able to communicate needs. On room air, saturating well. IV site intact and flushed; no IVF at this time. No complaints of pain or discomfort at this time. Bed in lowest position, brakes engaged and bed alarm on. Call light placed within reach. Will continue to monitor.
[2020-11-22 20:00] VITALS: BP 135/62
[2020-11-22] MEDS: Dyna-Hex 2% Top Sol 2oz TOPIC SCH (20:00)
--- NOTE | 2020-11-22 20:03 | General Progress Note ---
Subjective ROS Limited/Unobtainable: Yes Allergies: Coded Allergies: No Known Allergies (Unverified , 10/31/20) Objective Last 24 Hour Vital Signs Date Time Temp Pulse Resp B/P (MAP) Pulse Ox O2 Delivery O2 Flow Rate FiO2 11/22/20 17:08 61 128/54 11/22/20 16:00 59 11/22/20 16:00 98.2 60 20 128/54 (78) 98 11/22/20 12:00 97.9 62 20 133/64 (87) 96 11/22/20 12:00 61 11/22/20 09:00 Room Air 11/22/20 08:33 76 138/64 11/22/20 08:32 76 138/64 11/22/20 08:00 65 11/22/20 08:00 98.2 76 20 138/64 (88) 97 11/22/20 04:00 97.9 69 20 145/59 (87) 97 11/22/20 03:31 69 11/22/20 00:00 67 11/22/20 00:00 97.7 69 20 133/61 (85) 95 11/22/20 00:00 69 11/21/20 21:00 Room Air 11/21/20 20:10 76 125/58 11/21/20 20:00 97.0 76 20 125/58 (80) 96 11/21/20 20:00 68 Intake and Output 11/21/20 11/22/20 19:00 07:00 Intake Total 550 ml 300 ml Output Total 800 ml 1200 ml Balance -250 ml -900 ml Intake Oral 550 ml 300 ml Output Urine Total 800 ml 1200 ml # Voids 2 5 Laboratory Tests 11/21/20 20:15: POC Whole Blood Glucose 171H 11/22/20 05:45: POC Whole Blood Glucose 205H 11/22/20 05:57: White Blood Count 5.1, Red Blood Count 2.96L, Hemoglobin 8.8L, Hematocrit 27.0L, Mean Corpuscular Volume 91, Mean Corpuscular Hemoglobin 29.6, Mean Corpuscular Hemoglobin Concent 32.4, Red Cell Distribution Width 13.9, Platelet Count 142L, Mean Platelet Volume 6.2L, Neutrophils (%) (Auto) 69.9, Lymphocytes (%) (Auto) 17.9L, Monocytes (%) (Auto) 6.5, Eosinophils (%) (Auto) 4.4H, Basophils (%) (Au to) 1.3, Sodium Level 138, Potassium Level 4.6, Chloride Level 107, Carbon Dioxide Level 24, Anion Gap 8, Blood Urea Nitrogen 32H, Creatinine 2.8H, Estimat Glomerular Filtration Rate 22.1, Glucose Level 222H, Calcium Level 8.1L, Phosphorus Level 3.5, Magnesium Level 1.9, Total Bilirubin 0.3, Aspartate Amino Transf (AST/SGOT) 13L, Alanine Aminotransferase (ALT/SGPT) 15, Alkaline Phosphatase 89, C-Reactive Protein, Quantitative 1.7H, Pro-B-Type Natriuretic Peptide 1138H, Total Protein 5.1L, Albumin 1.6L, Globulin 3.5, Albumin/Globulin Ratio 0.5L 11/22/20 16:17: POC Whole Blood Glucose 181H Height (Feet): 5 Height (Inches): 5.00 Weight (Pounds): 150 Assessment/Plan Problem List: (1) Renal failure (ARF), acute on chronic ICD Codes: N17.9 - Acute kidney failure, unspecified; N18.9 - Chronic kidney disease, unspecified SNOMED: 487981187 (2) DKA (diabetic ketoacidoses) ICD Codes: E11.10 - Type 2 diabetes mellitus with ketoacidosis without coma SNOMED: 115593656, 14762147 (3) COVID-19 virus infection ICD Codes: U07.1 - COVID-19 SNOMED: 029699158 (4) Rhabdomyolysis ICD Codes: M62.82 - Rhabdomyolysis SNOMED: 730393666 (5) Diabetes mellitus out of control ICD Codes: E11.65 - Type 2 diabetes mellitus with hyperglycemia SNOMED: 23660731, 694938358 (6) Abnormal thyroid blood test ICD Codes: R79.89 - Other specified abnormal findings of blood chemistry SNOMED: 149468645, [id number] (7) NSTEMI (non-ST elevated myocardial infarction) ICD Codes: I21.4 - Non-ST elevation (NSTEMI) myocardial infarction SNOMED: 53254981 Status: progressing, unchanged Assessment/Plan: covid + weak and debilitated no agaitation vitals stable needs to go to snf for PT/OT Corey Soto MD Nov 22, 2020 20:03
[2020-11-22] MEDS: Levemir Flexpen SUBQ SCH (21:15)
--- NOTE | 2020-11-22 23:25 | NUR ---
NURSE NOTES: Open wound noted on left antecubital fold. 3.5cm x 1cm. Picture uploaded.
[2020-11-23] VITALS: BP 122/59
[2020-11-23 04:00] VITALS: BP 115/61
[2020-11-23] MEDS: sitaGLIPtin 25mg tab ORAL SCH (05:28)
--- NOTE | 2020-11-23 06:15 | Hematology/Onc Progress Note ---
Assessment/Plan Assessment/Plan Assessment/Plan # Anemia of chronic disease due to underlying chronic medical issues, Multifactorial --> Anemia w/u has been ordered --> No evidence of hemolysis is noted, peripheral smear has been reviewed. --> Hgb goal >7. Transfuse prn. --> Epogen or iron at this time is not particularly indicated --> hgb 7.8->8.3-->7-->8.8 -> 1 unit prbc 11/21 # Thrombocytopenia - potential causes multifactorial, evaluate liver and viral etiologies, in this case due to covid19+++++ --> Hep panel and HIV ordered --> US abd to evaluate for cirrhosis and hsm ordered-->neg --> Peripheral smear ordered to evaluate for blasts /schistocytes --> abx and other meds have been reviewed --> ok for ppx if plt >50k w/ wither heparin or lovenox --> plt 128->125 # Elevated ddimer due to covid19+++ --> venous duplex neg --> ok for lovenox sq # NSTEMI with troponin of 0.25 and 0.35 in this patient with DKA as well as atrial flutter with rapid ventricular response. --> per cards, metoprolol 50 mg b.i.d. EF 65% # Atrial flutter with RVR On metoprolol 50 mg bid, Cardizem 90 bid and Amiodarone 200 po daily --> Eliquis held for hematuria # Diabetic ketoacidosis with glucose of more than 1000. # Accelerated hypertension. On Lopressor 50 bid and Cardizem 90 bid # COVID positive pneumonia. # Acute Renal failure in the setting of total CK of 1900, maybe rhabdomyolysis- induced renal failure. --> hd per renal --> S/P Bakari Hand on 11/11/20 # Dvt ppx lovenox sq Time of note does not necessarily correspond to the time the patient was seen. Appreciate consultation greatly. Subjective HEENT: Denies: no symptoms, eye pain, blurred vision, tearing, double vision, ear pain, ear discharge, nose pain, nose congestion, throat pain, throat swelling, mouth pain, mouth swelling, other Cardiovascular: Denies: no symptoms, chest pain, edema, irregular heart rate, lightheadedness, palpitations, syncope, other Genitourinary: Denies: no symptoms, burning, discharge, frequency, flank pain, hematuria, incontinence, pain, urgency, other Neurologic/Psychiatric: Denies: no symptoms, anxiety, depressed, emotional problems, headache, numbness, paresthesia, pre-existing deficit, seizure, tingling, tremors, weakness, other Endocrine: Denies: no symptoms, excessive sweating, flushing, intolerance to cold, intolerance to heat, increased hunger, increased thirst, increased urine, unexplained weight gain, unexplained weight loss, other Hematologic/Lymphatic: Denies: no symptoms, anemia, easy bleeding, easy bruising, adenopathy, other Allergies: Coded Allergies: No Known Allergies (Unverified , 10/31/20) Subjective 11/17 meds noted, labs reviewed, cbc has been ordered for today hgb 7.7 11/18 meds reviewed, is asymptomatic, labs ordered, no night sweats 11/21 no major changes, labs ordered plts remain low, hgb stable 11/22 ivl with bruising, labs are still pending, have ordered cbc 11/23 does have decub wound, labs noted, meds reviewed Objective Objective Current Medications Medications (Trade) Dose Ordered Sig/Manasa Route PRN Reason Start Time Stop Time Status Last Admin Dose Admin Acetaminophen (Tylenol) 500 mg Q4H PRN ORAL For Pain 11/01/20 01:00 12/01/20 00:59 11/19/20 22:08 Acetaminophen (Tylenol) 650 mg Q4H PRN RECTAL Temp >100.5 11/01/20 21:30 12/01/20 21:29 Allopurinol (Zyloprim) 200 mg DAILY ORAL 11/01/20 16:00 12/01/20 15:59 11/22/20 08:30 Amiodarone HCl (Cordarone) 200 mg DAILY ORAL 11/10/20 09:00 02/08/21 08:59 11/22/20 08:33 Chlorhexidine Gluconate (María Elena-Hex 2%) 1 applic DAILY@1999 TOPIC 11/04/20 20:00 02/02/21 19:59 11/16/20 21:34 Clonidine HCl (Catapres Tab) 0.1 mg Q4H PRN ORAL bp over 160 syst 10/31/20 17:45 01/29/21 17:44 11/01/20 09:20 Dextrose (Dextrose 50%) 25 ml Q30M PRN IV Hypoglycemia 11/01/20 07:15 01/30/21 07:14 Dextrose (Dextrose 50%) 50 ml Q30M PRN IV Hypoglycemia 11/01/20 07:15 01/30/21 07:14 Diltiazem HCl (Cardizem Tab) 90 mg BID ORAL 11/07/20 10:15 12/02/20 17:59 11/22/20 08:32 Docusate Sodium (Colace) 100 mg TWICE A DAY ORAL 10/31/20 18:00 11/30/20 17:59 11/22/20 17:06 Enoxaparin Sodium (Lovenox) 30 mg DAILY SUBQ 11/16/20 09:00 02/14/21 08:59 11/22/20 08:29 Haloperidol Lactate (Haldol) 5 mg Q6H PRN IM Agitation 11/06/20 21:30 12/21/20 21:29 11/21/20 06:31 Insulin Aspart (NovoLOG) BEFORE MEALS AND HS SUBQ 11/01/20 11:30 01/30/21 11:29 11/22/20 21:14 Insulin Aspart (NovoLOG) 5 units NOVOTIAC SUBQ 11/21/20 11:50 02/18/21 06:29 11/22/20 17:08 Insulin Detemir (Levemir) 15 units QHS SUBQ 11/21/20 21:00 02/18/21 20:59 11/22/20 21:15 Methimazole (Tapazole) 10 mg DAILY ORAL 11/03/20 09:00 12/03/20 08:59 11/22/20 08:32 Metoprolol Tartrate (Lopressor) 50 mg Q12HR ORAL 11/01/20 21:00 01/30/21 20:59 11/22/20 21:13 Ondansetron HCl (Zofran) 4 mg Q6H PRN IVP Nausea & Vomiting 11/07/20 16:30 12/07/20 16:29 11/07/20 17:28 Pantoprazole (Protonix) 40 mg BID ORAL 10/31/20 18:00 11/30/20 17:44 11/22/20 17:06 Sitagliptin Phosphate (Januvia) 25 mg ACBREAKFAST ORAL 11/06/20 06:30 12/06/20 06:29 11/23/20 05:28 Tamsulosin HCl (Flomax) 0.4 mg BID ORAL 11/03/20 12:00 12/03/20 11:59 11/22/20 17:06 Vitamin D (Vitamin D) 5,000 unit DAILY ORAL 11/13/20 09:00 12/13/20 08:59 11/22/20 08:31 Last 24 Hour Vital Signs Date Time Temp Pulse Resp B/P (MAP) Pulse Ox O2 Delivery O2 Flow Rate FiO2 11/23/20 04:00 97.9 61 20 115/61 (79) 97 11/23/20 04:00 61 11/23/20 00:00 62 11/23/20 00:00 97.9 62 20 122/59 (80) 97 11/22/20 21:13 62 135/62 11/22/20 21:00 Room Air 11/22/20 20:00 98.4 62 20 135/62 (86) 98 11/22/20 20:00 63 11/22/20 17:08 61 128/54 11/22/20 16:00 59 11/22/20 16:00 98.2 60 20 128/54 (78) 98 11/22/20 12:00 97.9 62 20 133/64 (87) 96 11/22/20 12:00 61 11/22/20 09:00 Room Air 11/22/20 08:33 76 138/64 11/22/20 08:32 76 138/64 11/22/20 08:00 65 11/22/20 08:00 98.2 76 20 138/64 (88) 97 11/22/20 04:00 97.9 69 20 145/59 (87) 97 11/22/20 03:31 69 11/22/20 00:00 67 11/22/20 00:00 97.7 69 20 133/61 (85) 95 11/22/20 00:00 69 11/21/20 21:00 Room Air 11/21/20 20:10 76 125/58 11/21/20 20:00 97.0 76 20 125/58 (80) 96 11/21/20 20:00 68 11/21/20 17:10 74 132/58 11/21/20 16:00 74 11/21/20 16:00 98.2 74 20 132/58 (82) 98 11/21/20 12:00 97.9 66 20 110/56 (74) 99 11/21/20 12:00 64 11/21/20 09:00 Room Air 11/21/20 08:39 64 126/58 11/21/20 08:37 64 126/58 11/21/20 08:00 98.1 67 20 121/57 (78) 100 11/21/20 08:00 65 Intake and Output 11/22/20 11/23/20 19:00 07:00 Intake Total 800 ml Output Total 800 ml Balance 0 ml Intake Oral 800 ml Output Urine Total 800 ml # Voids 3 Labs Test 11/20/20 06:45 11/20/20 11:19 11/20/20 16:16 11/20/20 21:48 White Blood Count 6.0 K/UL (4.8-10.8) Red Blood Count 2.76 M/UL (4.70-6.10) Hemoglobin 8.3 G/DL (14.2-18.0) Hematocrit 25.7 % (42.0-52.0) Mean Corpuscular Volume 93 FL (80-99) Mean Corpuscular Hemoglobin 30.2 PG (27.0-31.0) Mean Corpuscular Hemoglobin Concent 32.4 G/DL (32.0-36.0) Red Cell Distribution Width 13.2 % (11.6-14.8) Platelet Count 125 K/UL (150-450) Mean Platelet Volume 6.0 FL (6.5-10.1) Neutrophils (%) (Auto) 76.4 % (45.0-75.0) Lymphocytes (%) (Auto) 13.3 % (20.0-45.0) Monocytes (%) (Auto) 6.4 % (1.0-10.0) Eosinophils (%) (Auto) 3.1 % (0.0-3.0) Basophils (%) (Auto) 0.7 % (0.0-2.0) Sodium Level 139 MMOL/L (136-145) Potassium Level 4.1 MMOL/L (3.5-5.1) Chloride Level 106 MMOL/L (98-107) Carbon Dioxide Level 24 MMOL/L (21-32) Anion Gap 9 mmol/L (5-15) Blood Urea Nitrogen 32 mg/dL (7-18) Creatinine 3.1 MG/DL (0.55-1.30) Estimat Glomerular Filtration Rate 19.7 mL/min (>60) Glucose Level 105 MG/DL (74-106) Hemoglobin A1c 8.5 % (4.3-6.0) Calcium Level 8.0 MG/DL (8.5-10.1) POC Whole Blood Glucose 295 MG/DL (74-106) 297 MG/DL (74-106) 231 MG/DL (74-106) Test 11/21/20 06:26 11/21/20 07:30 11/21/20 11:30 11/21/20 11:56 POC Whole Blood Glucose 200 MG/DL (74-106) 178 MG/DL (74-106) Thyroid Stimulating Hormone (TSH) 1.513 uiU/mL (0.358-3.740) Free Thyroxine 1.32 NG/DL (0.76-1.46) Free Triiodothyronine 1.2 pg/mL (2.3-4.2) White Blood Count 6.1 K/UL (4.8-10.8) Red Blood Count 2.38 M/UL (4.70-6.10) Hemoglobin 7.0 G/DL (14.2-18.0) Hematocrit 22.2 % (42.0-52.0) Mean Corpuscular Volume 94 FL (80-99) Mean Corpuscular Hemoglobin 29.6 PG (27.0-31.0) Mean Corpuscular Hemoglobin Concent 31.6 G/DL (32.0-36.0) Red Cell Distribution Width 12.8 % (11.6-14.8) Platelet Count 133 K/UL (150-450) Mean Platelet Volume 5.1 FL (6.5-10.1) Neutrophils (%) (Auto) 71.3 % (45.0-75.0) Lymphocytes (%) (Auto) 17.6 % (20.0-45.0) Monocytes (%) (Auto) 6.6 % (1.0-10.0) Eosinophils (%) (Auto) 3.4 % (0.0-3.0) Basophils (%) (Auto) 0.6 % (0.0-2.0) Test 11/21/20 17:04 11/21/20 20:15 11/22/20 05:45 11/22/20 05:57 POC Whole Blood Glucose 282 MG/DL (74-106) 171 MG/DL (74-106) 205 MG/DL (74-106) White Blood Count 5.1 K/UL (4.8-10.8) Red Blood Count 2.96 M/UL (4.70-6.10) Hemoglobin 8.8 G/DL (14.2-18.0) Hematocrit 27.0 % (42.0-52.0) Mean Corpuscular Volume 91 FL (80-99) Mean Corpuscular Hemoglobin 29.6 PG (27.0-31.0) Mean Corpuscular Hemoglobin Concent 32.4 G/DL (32.0-36.0) Red Cell Distribution Width 13.9 % (11.6-14.8) Platelet Count 142 K/UL (150-450) Mean Platelet Volume 6.2 FL (6.5-10.1) Neutrophils (%) (Auto) 69.9 % (45.0-75.0) Lymphocytes (%) (Auto) 17.9 % (20.0-45.0) Monocytes (%) (Auto) 6.5 % (1.0-10.0) Eosinophils (%) (Auto) 4.4 % (0.0-3.0) Basophils (%) (Auto) 1.3 % (0.0-2.0) Sodium Level 138 MMOL/L (136-145) Potassium Level 4.6 MMOL/L (3.5-5.1) Chloride Level 107 MMOL/L (98-107) Carbon Dioxide Level 24 MMOL/L (21-32) Anion Gap 8 mmol/L (5-15) Blood Urea Nitrogen 32 mg/dL (7-18) Creatinine 2.8 MG/DL (0.55-1.30) Estimat Glomerular Filtration Rate 22.1 mL/min (>60) Glucose Level 222 MG/DL (74-106) Calcium Level 8.1 MG/DL (8.5-10.1) Phosphorus Level 3.5 MG/DL (2.5-4.9) Magnesium Level 1.9 MG/DL (1.8-2.4) Total Bilirubin 0.3 MG/DL (0.2-1.0) Aspartate Amino Transf (AST/SGOT) 13 U/L (15-37) Alanine Aminotransferase (ALT/SGPT) 15 U/L (12-78) Alkaline Phosphatase 89 U/L (46-116) C-Reactive Protein, Quantitative 1.7 mg/dL (0.00-0.90) Pro-B-Type Natriuretic Peptide 1138 pg/mL (0-125) Total Protein 5.1 G/DL (6.4-8.2) Albumin 1.6 G/DL (3.4-5.0) Globulin 3.5 g/dL Albumin/Globulin Ratio 0.5 (1.0-2.7) Test 11/22/20 16:17 11/22/20 20:40 11/23/20 05:07 POC Whole Blood Glucose 181 MG/DL (74-106) 163 MG/DL (74-106) 88 MG/DL (74-106) Height (Feet): 5 Height (Inches): 5.00 Weight (Pounds): 150 Objective Physical Exam: Vitals: reviewed General: NAD HEENT: nc, at Neck: supple Chest: clear breath sounds bilaterally Cardiovascular: RRR, no s3, s4 Abdomen: soft, nontender, nd Extremities: no cce, normal range of motion Neuro: alert and oriented Montrell Weaver MD Nov 23, 2020 06:15
--- NOTE | 2020-11-23 06:21 | General Progress Note ---
Subjective Allergies: Coded Allergies: No Known Allergies (Unverified , 10/31/20) Subjective events noted interval notes reviewed glucose values improved Item Value Date Time Bedside Blood Glucose 163 mg/dl H 11/22/20 2115 Bedside Blood Glucose 181 mg/dl H 11/22/20 1708 Bedside Blood Glucose 232 mg/dl H 11/22/20 1157 Bedside Blood Glucose 205 mg/dl H 11/22/20 0630 Objective Last 24 Hour Vital Signs Date Time Temp Pulse Resp B/P (MAP) Pulse Ox O2 Delivery O2 Flow Rate FiO2 11/23/20 04:00 97.9 61 20 115/61 (79) 97 11/23/20 04:00 61 11/23/20 00:00 62 11/23/20 00:00 97.9 62 20 122/59 (80) 97 11/22/20 21:13 62 135/62 11/22/20 21:00 Room Air 11/22/20 20:00 98.4 62 20 135/62 (86) 98 11/22/20 20:00 63 11/22/20 17:08 61 128/54 11/22/20 16:00 59 11/22/20 16:00 98.2 60 20 128/54 (78) 98 11/22/20 12:00 97.9 62 20 133/64 (87) 96 11/22/20 12:00 61 11/22/20 09:00 Room Air 11/22/20 08:33 76 138/64 11/22/20 08:32 76 138/64 11/22/20 08:00 65 11/22/20 08:00 98.2 76 20 138/64 (88) 97 Intake and Output 11/22/20 11/23/20 19:00 07:00 Intake Total 800 ml Output Total 800 ml Balance 0 ml Intake Oral 800 ml Output Urine Total 800 ml # Voids 3 Laboratory Tests 11/22/20 16:17: POC Whole Blood Glucose 181H 11/22/20 20:40: POC Whole Blood Glucose 163H 11/23/20 05:07: POC Whole Blood Glucose 88 Height (Feet): 5 Height (Inches): 5.00 Weight (Pounds): 150 General Appearance: no apparent distress Neck: normal alignment Cardiovascular: normal rate Respiratory/Chest: decreased breath sounds Abdomen: normal bowel sounds Objective Current Medications Medications (Trade) Dose Ordered Sig/Amnasa Route PRN Reason Start Time Stop Time Status Last Admin Dose Admin Acetaminophen (Tylenol) 500 mg Q4H PRN ORAL For Pain 11/01/20 01:00 12/01/20 00:59 11/19/20 22:08 Acetaminophen (Tylenol) 650 mg Q4H PRN RECTAL Temp >100.5 11/01/20 21:30 12/01/20 21:29 Allopurinol (Zyloprim) 200 mg DAILY ORAL 11/01/20 16:00 12/01/20 15:59 11/22/20 08:30 Amiodarone HCl (Cordarone) 200 mg DAILY ORAL 11/10/20 09:00 02/08/21 08:59 11/22/20 08:33 Chlorhexidine Gluconate (María Elena-Hex 2%) 1 applic DAILY@1999 TOPIC 11/04/20 20:00 02/02/21 19:59 11/16/20 21:34 Clonidine HCl (Catapres Tab) 0.1 mg Q4H PRN ORAL bp over 160 syst 10/31/20 17:45 01/29/21 17:44 11/01/20 09:20 Dextrose (Dextrose 50%) 25 ml Q30M PRN IV Hypoglycemia 11/01/20 07:15 01/30/21 07:14 Dextrose (Dextrose 50%) 50 ml Q30M PRN IV Hypoglycemia 11/01/20 07:15 01/30/21 07:14 Diltiazem HCl (Cardizem Tab) 90 mg BID ORAL 11/07/20 10:15 12/02/20 17:59 11/22/20 08:32 Docusate Sodium (Colace) 100 mg TWICE A DAY ORAL 10/31/20 18:00 11/30/20 17:59 11/22/20 17:06 Enoxaparin Sodium (Lovenox) 30 mg DAILY SUBQ 11/16/20 09:00 02/14/21 08:59 11/22/20 08:29 Haloperidol Lactate (Haldol) 5 mg Q6H PRN IM Agitation 11/06/20 21:30 12/21/20 21:29 11/21/20 06:31 Insulin Aspart (NovoLOG) BEFORE MEALS AND HS SUBQ 11/01/20 11:30 01/30/21 11:29 11/22/20 21:14 Insulin Aspart (NovoLOG) 5 units NOVOTIAC SUBQ 11/21/20 11:50 02/18/21 06:29 11/22/20 17:08 Insulin Detemir (Levemir) 15 units QHS SUBQ 11/21/20 21:00 02/18/21 20:59 11/22/20 21:15 Methimazole (Tapazole) 10 mg DAILY ORAL 11/03/20 09:00 12/03/20 08:59 11/22/20 08:32 Metoprolol Tartrate (Lopressor) 50 mg Q12HR ORAL 11/01/20 21:00 01/30/21 20:59 11/22/20 21:13 Ondansetron HCl (Zofran) 4 mg Q6H PRN IVP Nausea & Vomiting 11/07/20 16:30 12/07/20 16:29 11/07/20 17:28 Pantoprazole (Protonix) 40 mg BID ORAL 10/31/20 18:00 11/30/20 17:44 11/22/20 17:06 Sitagliptin Phosphate (Januvia) 25 mg ACBREAKFAST ORAL 11/06/20 06:30 12/06/20 06:29 11/23/20 05:28 Tamsulosin HCl (Flomax) 0.4 mg BID ORAL 11/03/20 12:00 12/03/20 11:59 11/22/20 17:06 Vitamin D (Vitamin D) 5,000 unit DAILY ORAL 11/13/20 09:00 12/13/20 08:59 11/22/20 08:31 Assessment/Plan Problem List: (1) Abnormal thyroid blood test ICD Codes: R79.89 - Other specified abnormal findings of blood chemistry SNOMED: 042413726, 280993718927344 (2) Diabetes mellitus out of control ICD Codes: E11.65 - Type 2 diabetes mellitus with hyperglycemia SNOMED: 20893837, 855815516 (3) Renal failure (ARF), acute on chronic ICD Codes: N17.9 - Acute kidney failure, unspecified; N18.9 - Chronic kidney disease, unspecified SNOMED: 497979848 (4) COVID-19 virus infection ICD Codes: U07.1 - COVID-19 SNOMED: 841107430 (5) DKA (diabetic ketoacidoses) ICD Codes: E11.10 - Type 2 diabetes mellitus with ketoacidosis without coma SNOMED: 148238730, 18699533 (6) NSTEMI (non-ST elevated myocardial infarction) ICD Codes: I21.4 - Non-ST elevation (NSTEMI) myocardial infarction SNOMED: 59891578 Status: progressing, unchanged Assessment/Plan: continue Levemir 15 units qhs continue Novolog 5 units ac tid continue Novolog sliding scale ac hs continue Januvia 25 mg daily thyroid function improved continue Tapazole 10 mg daily repeat TSH, free T4 in 2-3 weeks Markus Tamez MD Nov 23, 2020 06:21
[2020-11-23] MEDS: NovoLOG Insulin Flexpen SUBQ SCH ×7 (06:30→20:48)
[2020-11-23 07:10] LABS: BASOPHILS % (AUTO) 1.5 % (0.0-2.0); HEMOGLOBIN 8.9 G/DL (14.2-18.0); LYMPHOCYTES % (AUTO) 22.5 % (20.0-45.0); MEAN CORPUSCULAR VOLUME 90 FL (80-99); MONOCYTES % (AUTO) 7.3 % (1.0-10.0); NEUTROPHILS % (AUTO) 63.7 % (45.0-75.0); PLATELET COUNT 153 K/UL (150-450); RED BLOOD COUNT 2.98 M/UL (4.70-6.10); RED CELL DISTRIBUTION WIDTH 13.6 % (11.6-14.8); WHITE BLOOD COUNT 5.2 K/UL (4.8-10.8)
[2020-11-23 07:12] LABS: CALCIUM 7.8 MG/DL (8.5-10.1); CREATININE 2.8 MG/DL (0.55-1.30); POTASSIUM 4.3 MMOL/L (3.5-5.1)
--- NOTE | 2020-11-23 07:22 | Cardiac Electrophysiology PN ---
Assessment/Plan Assessment/Plan 1. NSTEMI with troponin of 0.25 and 0.35 in this patient with DKA as well as atrial flutter with rapid ventricular response. On metoprolol 50 mg b.i.d. EF 65% 2. Atrial flutter with RVR On metoprolol 50 mg bid, Cardizem 90 bid and Amiodarone 200 po daily Off Eliquis for hematuria 3. Diabetic ketoacidosis with glucose of more than 1000. 4. Hypertension. On Lopressor 50 bid and Cardizem 90 bid 5. COVID positive pneumonia. 6. Acute Renal failure in the setting of total CK of 1900, maybe rhabdomyolysis- induced renal failure. On HD via RFV Yazan by Dr. Buckley. RFV Yazan pulled out by patient. S/P New RIJ Yazan on 11/11/20 that was then removed on 11/17 as no more need for HD 7. Anemia. S/P PRBC 11/16 DW RN DC SNIF today Subjective Subjective Pulled out his RFV Yazan catheter on 11/08/20. S/P new Yazan catheter placement 11/11/20. R IJ HD catheter removed 11/17/20 S/P PRBC On RA SNIF pending Objective Last 24 Hour Vital Signs Date Time Temp Pulse Resp B/P (MAP) Pulse Ox O2 Delivery O2 Flow Rate FiO2 11/23/20 04:00 97.9 61 20 115/61 (79) 97 11/23/20 04:00 61 11/23/20 00:00 62 11/23/20 00:00 97.9 62 20 122/59 (80) 97 11/22/20 21:13 62 135/62 11/22/20 21:00 Room Air 11/22/20 20:00 98.4 62 20 135/62 (86) 98 11/22/20 20:00 63 11/22/20 17:08 61 128/54 11/22/20 16:00 59 11/22/20 16:00 98.2 60 20 128/54 (78) 98 11/22/20 12:00 97.9 62 20 133/64 (87) 96 11/22/20 12:00 61 11/22/20 09:00 Room Air 11/22/20 08:33 76 138/64 11/22/20 08:32 76 138/64 11/22/20 08:00 65 11/22/20 08:00 98.2 76 20 138/64 (88) 97 Intake and Output 11/22/20 11/23/20 19:00 07:00 Intake Total 800 ml 120 ml Output Total 800 ml 800 ml Balance 0 ml -680 ml Intake Oral 800 ml 120 ml Output Urine Total 800 ml 800 ml # Voids 3 4 Laboratory Tests Test 11/22/20 16:17 11/22/20 20:40 11/23/20 05:07 11/23/20 06:00 POC Whole Blood Glucose 181 MG/DL (74-106) H 163 MG/DL (74-106) H 88 MG/DL (74-106) White Blood Count 5.2 K/UL (4.8-10.8) Red Blood Count 2.98 M/UL (4.70-6.10) L Hemoglobin 8.9 G/DL (14.2-18.0) L Hematocrit 27.0 % (42.0-52.0) L Mean Corpuscular Volume 90 FL (80-99) Mean Corpuscular Hemoglobin 29.9 PG (27.0-31.0) Mean Corpuscular Hemoglobin Concent 33.1 G/DL (32.0-36.0) Red Cell Distribution Width 13.6 % (11.6-14.8) Platelet Count 153 K/UL (150-450) Mean Platelet Volume 5.4 FL (6.5-10.1) L Neutrophils (%) (Auto) 63.7 % (45.0-75.0) Lymphocytes (%) (Auto) 22.5 % (20.0-45.0) Monocytes (%) (Auto) 7.3 % (1.0-10.0) Eosinophils (%) (Auto) 5.0 % (0.0-3.0) H Basophils (%) (Auto) 1.5 % (0.0-2.0) Sodium Level 142 MMOL/L (136-145) Potassium Level 4.3 MMOL/L (3.5-5.1) Chloride Level 110 MMOL/L (98-107) H Carbon Dioxide Level 25 MMOL/L (21-32) Anion Gap 7 mmol/L (5-15) Blood Urea Nitrogen 31 mg/dL (7-18) H Creatinine 2.8 MG/DL (0.55-1.30) H Estimat Glomerular Filtration Rate 22.1 mL/min (>60) Glucose Level 92 MG/DL (74-106) # Calcium Level 7.8 MG/DL (8.5-10.1) L Objective HEAD AND NECK: No JVD. LUNGS: Clear. CARDIOVASCULAR: Shows regular S1 and S2 with no gallop. ABDOMEN: Soft. EXTREMITIES: No pitting edema. Sivakumar Escalante MD Nov 23, 2020 07:22
--- NOTE | 2020-11-23 07:34 | NUR ---
NURSE HAND-OFF REPORT: Important Events on Shift:[New IV site: right hand #22; open wound on left AC. picture uploaded] Patient Status: [full code] Diet: [renal diet] Pending Orders: [] Pending Results/Labs:[] Pending MD notification:[] Latest Vital Signs: Temperature 97.9 , Pulse 61 , B/P 115 /61 , Respiratory Rate 20 , O2 SAT 97 , Nasal Cannula, O2 Flow Rate 2.0 . Vital Sign Comment: [] EKG Rhythm: SR w/ 1st AVB Rhythm change?: N Notified?: Enoc Sawyer MD Response: Message left await call Latest Bhat Fall Score: 75 Fall Risk: High Risk Safety Measures: Call light Within Reach, Bed Alarm Zone 1, Side Rails Side Rails x3, Bed position Low and Locked. Fall Precautions: Yellow Socks Yellow Gown Report given to [ARPITA Rizo].
--- NOTE | 2020-11-23 07:44 | NUR ---
NURSE NOTES: Received report from ARPITA Parikh. Patient observed to be awake, alert, and oriented x3.Seen lying in bed with HOB elevated, currently on room air. Showing no s/sx of SOB/Distress, no c/o any pain or discomfort. Patient with IV access on RH gauge [address], dry, and intact. Bed placed on low and locked, call light placed within reach and will continue to continuously monitor patient for any changes in patient's condition.
--- NOTE | 2020-11-23 07:50 | NUR ---
CASE MANAGEMENT:REVIEW 11/23/20 SI: NSTEMI. COVID PNA. RENAL FAILURE 97.9 61 20 115/61 97% ON RA H/H-8.9/27.0 BUN+31 CR+2.8 IS: LEVEMIR SQ QHS NOVOLOG SQ TID LOVENOX SQ QD VIT D PO QD AMIODARONE PO QD CARDIZEM PO BID JANUVIA PO QAM FLOMAX PO BID TAPAZOLE PO QD LOPRESSOR PO Q12 ALLOPURINOL PO QD PROTONIX PO BID : TELEMETRY STATUS DCP: FROM HOME PLAN: REFER TO SNF FOR SHORT STAY OT/PT [facility] UNABLE TO ACCEPT PATIENT SEEKING PLACEMENT AT OTHER COVID POSITIVE SNF'S
[2020-11-23 08:00] VITALS: BP 135/55
[2020-11-23] MEDS: methIMAzole 10mg tab ORAL SCH (08:11)
[2020-11-23] MEDS: Enoxaparin 30mg Inj SUBQ SCH (08:11)
[2020-11-23] MEDS: Metoprolol Tartrate 50mg tab ORAL SCH ×2 (08:12→20:47)
[2020-11-23] MEDS: Docusate 100mg cap ORAL SCH ×2 (08:12→17:02)
[2020-11-23] MEDS: Amiodarone 200mg tab ORAL SCH (08:12)
[2020-11-23] MEDS: Allopurinol 100mg Tab ORAL SCH (08:12)
[2020-11-23] MEDS: Vitamin D 1000 units Tab ORAL SCH (08:12)
[2020-11-23] MEDS: dilTIAZem HCl 90mg tab ORAL SCH ×2 (08:12→17:03)
[2020-11-23] MEDS: Tamsulosin 0.4mg cap ORAL SCH ×2 (08:12→17:02)
--- NOTE | 2020-11-23 10:53 | Infectious Diseases Prog Note ---
Assessment/Plan Assessment/Plan A; COVID19 pneumonia Hypoxemia Acute renal failure improving Rhabdomyolysis Diarrhea, C. difficile negative DKA Hyperthyroidism Anemia Leukocytosis improving Dementia P; Finished Dexamethasone course Observe off antibiotic Case was D/W primary MD & manager of case management Subjective ROS Limited/Unobtainable: Yes Allergies: Coded Allergies: No Known Allergies (Unverified , 10/31/20) Objective Last 24 Hour Vital Signs Date Time Temp Pulse Resp B/P (MAP) Pulse Ox O2 Delivery O2 Flow Rate FiO2 11/23/20 09:00 Room Air 11/23/20 08:12 67 135/55 11/23/20 08:12 67 135/55 11/23/20 08:00 66 11/23/20 08:00 97.9 67 20 135/55 (81) 94 11/23/20 04:00 97.9 61 20 115/61 (79) 97 11/23/20 04:00 61 11/23/20 00:00 62 11/23/20 00:00 97.9 62 20 122/59 (80) 97 11/22/20 21:13 62 135/62 11/22/20 21:00 Room Air 11/22/20 20:00 98.4 62 20 135/62 (86) 98 11/22/20 20:00 63 11/22/20 17:08 61 128/54 11/22/20 16:00 59 11/22/20 16:00 98.2 60 20 128/54 (78) 98 11/22/20 12:00 97.9 62 20 133/64 (87) 96 11/22/20 12:00 61 Height (Feet): 5 Height (Inches): 5.00 Weight (Pounds): 150 General Appearance: no acute distress Respiratory/Chest: lungs clear Cardiovascular: normal rate Abdomen: soft, non tender Extremities: no edema Neurologic/Psychiatric: other - sleeping Laboratory Tests Test 11/22/20 16:17 11/22/20 20:40 11/23/20 05:07 11/23/20 06:00 POC Whole Blood Glucose 181 MG/DL (74-106) H 163 MG/DL (74-106) H 88 MG/DL (74-106) White Blood Count 5.2 K/UL (4.8-10.8) Red Blood Count 2.98 M/UL (4.70-6.10) L Hemoglobin 8.9 G/DL (14.2-18.0) L Hematocrit 27.0 % (42.0-52.0) L Mean Corpuscular Volume 90 FL (80-99) Mean Corpuscular Hemoglobin 29.9 PG (27.0-31.0) Mean Corpuscular Hemoglobin Concent 33.1 G/DL (32.0-36.0) Red Cell Distribution Width 13.6 % (11.6-14.8) Platelet Count 153 K/UL (150-450) Mean Platelet Volume 5.4 FL (6.5-10.1) L Neutrophils (%) (Auto) 63.7 % (45.0-75.0) Lymphocytes (%) (Auto) 22.5 % (20.0-45.0) Monocytes (%) (Auto) 7.3 % (1.0-10.0) Eosinophils (%) (Auto) 5.0 % (0.0-3.0) H Basophils (%) (Auto) 1.5 % (0.0-2.0) Sodium Level 142 MMOL/L (136-145) Potassium Level 4.3 MMOL/L (3.5-5.1) Chloride Level 110 MMOL/L (98-107) H Carbon Dioxide Level 25 MMOL/L (21-32) Anion Gap 7 mmol/L (5-15) Blood Urea Nitrogen 31 mg/dL (7-18) H Creatinine 2.8 MG/DL (0.55-1.30) H Estimat Glomerular Filtration Rate 22.1 mL/min (>60) Glucose Level 92 MG/DL (74-106) # Calcium Level 7.8 MG/DL (8.5-10.1) L Current Medications Medications (Trade) Dose Ordered Sig/Manasa Route PRN Reason Start Time Stop Time Status Last Admin Dose Admin Acetaminophen (Tylenol) 500 mg Q4H PRN ORAL For Pain 11/01/20 01:00 12/01/20 00:59 11/19/20 22:08 Acetaminophen (Tylenol) 650 mg Q4H PRN RECTAL Temp >100.5 11/01/20 21:30 12/01/20 21:29 Allopurinol (Zyloprim) 200 mg DAILY ORAL 11/01/20 16:00 12/01/20 15:59 11/23/20 08:12 Amiodarone HCl (Cordarone) 200 mg DAILY ORAL 11/10/20 09:00 02/08/21 08:59 11/23/20 08:12 Chlorhexidine Gluconate (María Elena-Hex 2%) 1 applic DAILY@1999 TOPIC 11/04/20 20:00 02/02/21 19:59 11/16/20 21:34 Clonidine HCl (Catapres Tab) 0.1 mg Q4H PRN ORAL bp over 160 syst 10/31/20 17:45 01/29/21 17:44 11/01/20 09:20 Dextrose (Dextrose 50%) 25 ml Q30M PRN IV Hypoglycemia 11/01/20 07:15 01/30/21 07:14 Dextrose (Dextrose 50%) 50 ml Q30M PRN IV Hypoglycemia 11/01/20 07:15 01/30/21 07:14 Diltiazem HCl (Cardizem Tab) 90 mg BID ORAL 11/07/20 10:15 12/02/20 17:59 11/23/20 08:12 Docusate Sodium (Colace) 100 mg TWICE A DAY ORAL 10/31/20 18:00 11/30/20 17:59 11/23/20 08:12 Enoxaparin Sodium (Lovenox) 30 mg DAILY SUBQ 11/16/20 09:00 02/14/21 08:59 11/23/20 08:11 Haloperidol Lactate (Haldol) 5 mg Q6H PRN IM Agitation 11/06/20 21:30 12/21/20 21:29 11/21/20 06:31 Insulin Aspart (NovoLOG) BEFORE MEALS AND HS SUBQ 11/01/20 11:30 01/30/21 11:29 11/22/20 21:14 Insulin Aspart (NovoLOG) 5 units NOVOTIAC SUBQ 11/21/20 11:50 02/18/21 06:29 11/22/20 17:08 Insulin Detemir (Levemir) 15 units QHS SUBQ 11/21/20 21:00 02/18/21 20:59 11/22/20 21:15 Methimazole (Tapazole) 10 mg DAILY ORAL 11/03/20 09:00 12/03/20 08:59 11/23/20 08:11 Metoprolol Tartrate (Lopressor) 50 mg Q12HR ORAL 11/01/20 21:00 01/30/21 20:59 11/23/20 08:12 Ondansetron HCl (Zofran) 4 mg Q6H PRN IVP Nausea & Vomiting 11/07/20 16:30 12/07/20 16:29 11/07/20 17:28 Pantoprazole (Protonix) 40 mg BID ORAL 10/31/20 18:00 11/30/20 17:44 11/23/20 08:11 Sitagliptin Phosphate (Januvia) 25 mg ACBREAKFAST ORAL 11/06/20 06:30 12/06/20 06:29 11/23/20 05:28 Tamsulosin HCl (Flomax) 0.4 mg BID ORAL 11/03/20 12:00 12/03/20 11:59 11/23/20 08:12 Vitamin D (Vitamin D) 5,000 unit DAILY ORAL 11/13/20 09:00 12/13/20 08:59 11/23/20 08:12 Reji Connelly MD Nov 23, 2020 10:53
--- NOTE | 2020-11-23 10:55 | Nephrology Progress Note ---
Assessment/Plan Problem List: (1) Renal failure (ARF), acute on chronic (2) DKA (diabetic ketoacidoses) (3) COVID-19 virus infection (4) Rhabdomyolysis (5) Abnormal thyroid blood test (6) NSTEMI (non-ST elevated myocardial infarction) Assessment 75-year-old [place] male Covid positive Acute renal failure, most likely superimposed on chronic kidney disease Diabetes mellitus, presents with severe hyperglycemia and DKA History of hypertension Plan November 23: Labs reviewed. Serum creatinine 2.8. Status Quo. Stable from renal stand point of view. November 22: Labs reviewed. Serum creatinine 2.8. Patient have CKD however does not require dialysis treatment at this time. Continue per consultants. November 21: No chemistry panel done today. Status quo. Patient remains full code. Continue to monitor renal parameters. Continue per consultants. November 20: Serum creatinine 3.1. Full code. No need for dialysis yet. Continue per consultants. November 19: Serum creatinine stable at 3. Full code. No dialysis needed. Continue per consultants. November 18: Serum creatinine 3. No need for dialysis. Remains full code. Continue as is. November 17: No labs drawn today. No dialysis since November 08. Plan to remove all of dialysis catheter. Check labs tomorrow if in-house. November 16: Labs reviewed. Serum creatinine lower 2.9. No need for dialysis catheter anymore. Continue as is. November 15: Labs reviewed. Serum creatinine unchanged. Calculated creatinine clearance 19 mL/h. No dialysis needed at this time. November 14: Lab reviewed. Serum creatinine 3.2 unchanged. No need for dialysis. Continue per consultants. November 13: Lab reviewed. Serum creatinine 3.2. No need for dialysis today. Continue to monitor renal parameters. Continue per consultants. November 12: Labs reviewed. Serum creatinine 3. No dialysis needed today. Continue to monitor renal parameters. November 11: Labs reviewed. Serum creatinine higher. Due for placement of a Nontunneled catheter today. We will schedule dialysis as needed. Patient's leukocytosis gradually improving. November 10: Lab reviewed. Serum creatinine rising. We will proceed with placement of a nontunneled catheter tomorrow and dialysis. Patient has leukocytosis at this time. Continue per consultants. November 09: Labs reviewed. Patient was dialyzed yesterday. Patient pulled out the dialysis catheter last night. Renal parameters stable. Continue to monitor and if dialysis needed to place a new temporary catheter. Per orders. November 08: Labs reviewed. Serum creatinine is plateauing. Due for dialysis today. We will continue to monitor renal parameters and dialysis as needed. November 07: Labs reviewed. Serum creatinine rising. IV fluid discontinued. Dialysis for tomorrow. Continue per consultants. November 06: Labs reviewed. Blood pressure stable. Medication list reviewed. Dialysis as needed. November 05: Due for dialysis today. Labs are reviewed. Blood pressure is stable. Continue to monitor renal parameters. November 04: Patient was dialyzed yesterday. 1 L ultrafiltrated. Labs reviewed. Renal parameters stable. Will attempt dialysis again tomorrow. Medication list reviewed. November 03: Labs reviewed. Serum creatinine rising. Patient has hematuria. Patient on Eliquis. Will arrange for placement of dialysis catheter and attempt to dialyze. Will start Flomax since the patient could not have a Anand catheter. Continue to monitor renal parameters. Continue per consultants. Discussed with RN. Consent for placement of nontunneled catheter ordered. Patient is also on Tapazole for high thyroid hormone. CPK is lowering. November 02: Labs reviewed. Serum creatinine up to 4. In S DU now. On Cardizem drip. Measured creatinine clearance . Patient may lead towards dialysis. Continue to monitor renal parameters. November 01: Renal parameters improving. Blood sugar is improving. Continue to monitor electrolytes renal parameters and urine output. Aim to control blood sugar and blood pressure. Avoid nephrotoxic's. Monitor CPK as it is elevated. Previously: Anand catheter Blood sugar control Slow hydration Monitor renal parameters Kidney ultrasound no hydronephrosis 2D echocardiogram ejection fraction 60 to 65%. Per orders Subjective ROS Limited/Unobtainable: No Constitutional: Reports: malaise Objective Objective Last 24 Hour Vital Signs Date Time Temp Pulse Resp B/P (MAP) Pulse Ox O2 Delivery O2 Flow Rate FiO2 11/23/20 09:00 Room Air 11/23/20 08:12 67 135/55 11/23/20 08:12 67 135/55 11/23/20 08:00 66 11/23/20 08:00 97.9 67 20 135/55 (81) 94 11/23/20 04:00 97.9 61 20 115/61 (79) 97 11/23/20 04:00 61 11/23/20 00:00 62 11/23/20 00:00 97.9 62 20 122/59 (80) 97 11/22/20 21:13 62 135/62 11/22/20 21:00 Room Air 11/22/20 20:00 98.4 62 20 135/62 (86) 98 11/22/20 20:00 63 11/22/20 17:08 61 128/54 11/22/20 16:00 59 11/22/20 16:00 98.2 60 20 128/54 (78) 98 11/22/20 12:00 97.9 62 20 133/64 (87) 96 11/22/20 12:00 61 Intake and Output 11/22/20 11/23/20 19:00 07:00 Intake Total 800 ml 120 ml Output Total 800 ml 800 ml Balance 0 ml -680 ml Intake Oral 800 ml 120 ml Output Urine Total 800 ml 800 ml # Voids 3 4 Current Medications Medications (Trade) Dose Ordered Sig/Manasa Route PRN Reason Start Time Stop Time Status Last Admin Dose Admin Acetaminophen (Tylenol) 500 mg Q4H PRN ORAL For Pain 11/01/20 01:00 12/01/20 00:59 11/19/20 22:08 Acetaminophen (Tylenol) 650 mg Q4H PRN RECTAL Temp >100.5 11/01/20 21:30 12/01/20 21:29 Allopurinol (Zyloprim) 200 mg DAILY ORAL 11/01/20 16:00 12/01/20 15:59 11/23/20 08:12 Amiodarone HCl (Cordarone) 200 mg DAILY ORAL 11/10/20 09:00 02/08/21 08:59 11/23/20 08:12 Chlorhexidine Gluconate (María Elena-Hex 2%) 1 applic DAILY@2000 TOPIC 11/04/20 20:00 02/02/21 19:59 11/16/20 21:34 Clonidine HCl (Catapres Tab) 0.1 mg Q4H PRN ORAL bp over 160 syst 10/31/20 17:45 01/29/21 17:44 11/01/20 09:20 Dextrose (Dextrose 50%) 25 ml Q30M PRN IV Hypoglycemia 11/01/20 07:15 01/30/21 07:14 Dextrose (Dextrose 50%) 50 ml Q30M PRN IV Hypoglycemia 11/01/20 07:15 01/30/21 07:14 Diltiazem HCl (Cardizem Tab) 90 mg BID ORAL 11/07/20 10:15 12/02/20 17:59 11/23/20 08:12 Docusate Sodium (Colace) 100 mg TWICE A DAY ORAL 10/31/20 18:00 11/30/20 17:59 11/23/20 08:12 Enoxaparin Sodium (Lovenox) 30 mg DAILY SUBQ 11/16/20 09:00 02/14/21 08:59 11/23/20 08:11 Haloperidol Lactate (Haldol) 5 mg Q6H PRN IM Agitation 11/06/20 21:30 12/21/20 21:29 11/21/20 06:31 Insulin Aspart (NovoLOG) BEFORE MEALS AND HS SUBQ 11/01/20 11:30 01/30/21 11:29 11/22/20 21:14 Insulin Aspart (NovoLOG) 5 units NOVOTIAC SUBQ 11/21/20 11:50 02/18/21 06:29 11/22/20 17:08 Insulin Detemir (Levemir) 15 units QHS SUBQ 11/21/20 21:00 02/18/21 20:59 11/22/20 21:15 Methimazole (Tapazole) 10 mg DAILY ORAL 11/03/20 09:00 12/03/20 08:59 11/23/20 08:11 Metoprolol Tartrate (Lopressor) 50 mg Q12HR ORAL 11/01/20 21:00 01/30/21 20:59 11/23/20 08:12 Ondansetron HCl (Zofran) 4 mg Q6H PRN IVP Nausea & Vomiting 11/07/20 16:30 12/07/20 16:29 11/07/20 17:28 Pantoprazole (Protonix) 40 mg BID ORAL 10/31/20 18:00 11/30/20 17:44 11/23/20 08:11 Sitagliptin Phosphate (Januvia) 25 mg ACBREAKFAST ORAL 11/06/20 06:30 12/06/20 06:29 11/23/20 05:28 Tamsulosin HCl (Flomax) 0.4 mg BID ORAL 11/03/20 12:00 12/03/20 11:59 11/23/20 08:12 Vitamin D (Vitamin D) 5,000 unit DAILY ORAL 11/13/20 09:00 12/13/20 08:59 11/23/20 08:12 Laboratory Tests 11/22/20 16:17: POC Whole Blood Glucose 181H 11/22/20 20:40: POC Whole Blood Glucose 163H 11/23/20 05:07: POC Whole Blood Glucose 88 11/23/20 06:00: White Blood Count 5.2, Red Blood Count 2.98L, Hemoglobin 8.9L, Hematocrit 27.0L, Mean Corpuscular Volume 90, Mean Corpuscular Hemoglobin 29.9, Mean Corpuscular Hemoglobin Concent 33.1, Red Cell Distribution Width 13.6, Platelet Count 153, Mean Platelet Volume 5.4L, Neutrophils (%) (Auto) 63.7, Lymphocytes (%) (Auto) 2 2.5, Monocytes (%) (Auto) 7.3, Eosinophils (%) (Auto) 5.0H, Basophils (%) (Auto) 1.5, Sodium Level 142, Potassium Level 4.3, Chloride Level 110H, Carbon Dioxide Level 25, Anion Gap 7, Blood Urea Nitrogen 31H, Creatinine 2.8H, Estimat Glomerular Filtration Rate 22.1, Glucose Level 92#, Calcium Level 7.8L Height (Feet): 5 Height (Inches): 5.00 Weight (Pounds): 150 General Appearance: no apparent distress Cardiovascular: normal rate Respiratory/Chest: decreased breath sounds Abdomen: soft, distended Garth Buckley MD Nov 23, 2020 10:55
--- NOTE | 2020-11-23 11:17 | Pulmonology Progress Note ---
Subjective ROS Limited/Unobtainable: No Interval Events: none major reported per nursing Constitutional: Reports: no symptoms, other - doing better Gastrointestinal/Abdominal: Reports: diarrhea - C. diff negative Allergies: Coded Allergies: No Known Allergies (Unverified , 10/31/20) Objective Last 24 Hour Vital Signs Date Time Temp Pulse Resp B/P (MAP) Pulse Ox O2 Delivery O2 Flow Rate FiO2 11/23/20 09:00 Room Air 11/23/20 08:12 67 135/55 11/23/20 08:12 67 135/55 11/23/20 08:00 66 11/23/20 08:00 97.9 67 20 135/55 (81) 94 11/23/20 04:00 97.9 61 20 115/61 (79) 97 11/23/20 04:00 61 11/23/20 00:00 62 11/23/20 00:00 97.9 62 20 122/59 (80) 97 11/22/20 21:13 62 135/62 11/22/20 21:00 Room Air 11/22/20 20:00 98.4 62 20 135/62 (86) 98 11/22/20 20:00 63 11/22/20 17:08 61 128/54 11/22/20 16:00 59 11/22/20 16:00 98.2 60 20 128/54 (78) 98 11/22/20 12:00 97.9 62 20 133/64 (87) 96 11/22/20 12:00 61 Intake and Output 11/22/20 11/23/20 19:00 07:00 Intake Total 800 ml 120 ml Output Total 800 ml 800 ml Balance 0 ml -680 ml Intake Oral 800 ml 120 ml Output Urine Total 800 ml 800 ml # Voids 3 4 Objective now on room air General Appearance: WD/WN, no acute distress HEENT: atraumatic Respiratory: chest wall non-tender Cardiovascular: normal rate, regular rhythm Abdomen: soft, non tender Laboratory Tests 11/22/20 16:17: POC Whole Blood Glucose 181H 11/22/20 20:40: POC Whole Blood Glucose 163H 11/23/20 05:07: POC Whole Blood Glucose 88 11/23/20 06:00: White Blood Count 5.2, Red Blood Count 2.98L, Hemoglobin 8.9L, Hematocrit 27.0L, Mean Corpuscular Volume 90, Mean Corpuscular Hemoglobin 29.9, Mean Corpuscular Hemoglobin Concent 33.1, Red Cell Distribution Width 13.6, Platelet Count 153, Mean Platelet Volume 5.4L, Neutrophils (%) (Auto) 63.7, Lymphocytes (%) (Auto) 22.5, Monocytes (%) (Auto) 7.3, Eosinophils (%) (Auto) 5.0H, Basophils (%) (Auto) 1.5, Sodium Level 142, Potassium Level 4.3, Chloride Level 110H, Carbon Dioxide Level 25, Anion Gap 7, Blood Urea Nitrogen 31H, Creatinine 2.8H, Estimat Glomerular Filtration Rate 22.1, Glucose Level 92#, Calcium Level 7.8L Current Medications Medications (Trade) Dose Ordered Sig/Manasa Route PRN Reason Start Time Stop Time Status Last Admin Dose Admin Acetaminophen (Tylenol) 500 mg Q4H PRN ORAL For Pain 11/01/20 01:00 12/01/20 00:59 11/19/20 22:08 Acetaminophen (Tylenol) 650 mg Q4H PRN RECTAL Temp >100.5 11/01/20 21:30 12/01/20 21:29 Allopurinol (Zyloprim) 200 mg DAILY ORAL 11/01/20 16:00 12/01/20 15:59 11/23/20 08:12 Amiodarone HCl (Cordarone) 200 mg DAILY ORAL 11/10/20 09:00 02/08/21 08:59 11/23/20 08:12 Chlorhexidine Gluconate (María Elena-Hex 2%) 1 applic DAILY@1999 TOPIC 11/04/20 20:00 02/02/21 19:59 11/16/20 21:34 Clonidine HCl (Catapres Tab) 0.1 mg Q4H PRN ORAL bp over 160 syst 10/31/20 17:45 01/29/21 17:44 11/01/20 09:20 Dextrose (Dextrose 50%) 25 ml Q30M PRN IV Hypoglycemia 11/01/20 07:15 01/30/21 07:14 Dextrose (Dextrose 50%) 50 ml Q30M PRN IV Hypoglycemia 11/01/20 07:15 01/30/21 07:14 Diltiazem HCl (Cardizem Tab) 90 mg BID ORAL 11/07/20 10:15 12/02/20 17:59 11/23/20 08:12 Docusate Sodium (Colace) 100 mg TWICE A DAY ORAL 10/31/20 18:00 11/30/20 17:59 11/23/20 08:12 Enoxaparin Sodium (Lovenox) 30 mg DAILY SUBQ 11/16/20 09:00 02/14/21 08:59 11/23/20 08:11 Haloperidol Lactate (Haldol) 5 mg Q6H PRN IM Agitation 11/06/20 21:30 12/21/20 21:29 11/21/20 06:31 Insulin Aspart (NovoLOG) BEFORE MEALS AND HS SUBQ 11/01/20 11:30 01/30/21 11:29 11/22/20 21:14 Insulin Aspart (NovoLOG) 5 units NOVOTIAC SUBQ 11/21/20 11:50 02/18/21 06:29 11/22/20 17:08 Insulin Detemir (Levemir) 15 units QHS SUBQ 11/21/20 21:00 02/18/21 20:59 11/22/20 21:15 Methimazole (Tapazole) 10 mg DAILY ORAL 11/03/20 09:00 12/03/20 08:59 11/23/20 08:11 Metoprolol Tartrate (Lopressor) 50 mg Q12HR ORAL 11/01/20 21:00 01/30/21 20:59 11/23/20 08:12 Ondansetron HCl (Zofran) 4 mg Q6H PRN IVP Nausea & Vomiting 11/07/20 16:30 12/07/20 16:29 11/07/20 17:28 Pantoprazole (Protonix) 40 mg BID ORAL 10/31/20 18:00 11/30/20 17:44 11/23/20 08:11 Sitagliptin Phosphate (Januvia) 25 mg ACBREAKFAST ORAL 11/06/20 06:30 12/06/20 06:29 11/23/20 05:28 Tamsulosin HCl (Flomax) 0.4 mg BID ORAL 11/03/20 12:00 12/03/20 11:59 11/23/20 08:12 Vitamin D (Vitamin D) 5,000 unit DAILY ORAL 11/13/20 09:00 12/13/20 08:59 11/23/20 08:12 Assessment/Plan Assessment/Plan 1. Non-ST elevation myocardial infarction. - cardiology following 2. Diabetic ketoacidosis - seen by endocrinology - continue fluids - on insulin 3. Atrial flutter with rapid ventricular response. - Continue metoprolol 50 mg b.i.d. 4. COVID positive pneumonia. - s/p Decadron (11/03-11/12) - Supplemental O2 - saturating well on room air - CXR 11/04 developing b/l infilitrates 5. Renal failure - nephrology following 6. Accelerated hypertension. 7. Hyperthyroidism - Dr. Tamez following 8. Diarrhea - C. diff negative 9. DVT ppx - s/p Eliquis - We will restart low dose Lovenox given eGFR <30 - ok to continue if plt >50K per heme onc 10. Anemia - s/p transfusion (11/16) Medically stable for discharge from pulmonary standpoint DC planning; pending placement The care for this patient was discussed with my supervising physician Time spent for this case was approximately 31 minutes Singh Buchanan Nov 23, 2020 11:17
[2020-11-23 12:00] VITALS: BP 102/53
[2020-11-23 16:00] VITALS: BP 106/53
--- NOTE | 2020-11-23 16:27 | Surgery Progress Note ---
Surgery Progress Note Subjective Procedure Performed Right femoral temporary hemodialysis catheter insertion Additional Comments good saturation on room air comfortable tolerating diet no complaints Objective Last 24 Hour Vital Signs Date Time Temp Pulse Resp B/P (MAP) Pulse Ox O2 Delivery O2 Flow Rate FiO2 11/23/20 12:00 54 11/23/20 12:00 96.8 53 20 102/53 (69) 95 11/23/20 09:00 Room Air 11/23/20 08:12 67 135/55 11/23/20 08:12 67 135/55 11/23/20 08:00 66 11/23/20 08:00 97.9 67 20 135/55 (81) 94 11/23/20 04:00 97.9 61 20 115/61 (79) 97 11/23/20 04:00 61 11/23/20 00:00 62 11/23/20 00:00 97.9 62 20 122/59 (80) 97 11/22/20 21:13 62 135/62 11/22/20 21:00 Room Air 11/22/20 20:00 98.4 62 20 135/62 (86) 98 11/22/20 20:00 63 11/22/20 17:08 61 128/54 I&O Intake and Output 11/22/20 11/23/20 19:00 07:00 Intake Total 800 ml 120 ml Output Total 800 ml 800 ml Balance 0 ml -680 ml Intake Oral 800 ml 120 ml Output Urine Total 800 ml 800 ml # Voids 3 4 Cardiovascular: RSR Respiratory: clear Abdomen: soft, flat, non-tender, present bowel sounds Extremities: no edema, no tenderness, no cyanosis Laboratory Tests Test 11/22/20 20:40 11/23/20 05:07 11/23/20 06:00 POC Whole Blood Glucose 163 MG/DL (74-106) H 88 MG/DL (74-106) White Blood Count 5.2 K/UL (4.8-10.8) Red Blood Count 2.98 M/UL (4.70-6.10) L Hemoglobin 8.9 G/DL (14.2-18.0) L Hematocrit 27.0 % (42.0-52.0) L Mean Corpuscular Volume 90 FL (80-99) Mean Corpuscular Hemoglobin 29.9 PG (27.0-31.0) Mean Corpuscular Hemoglobin Concent 33.1 G/DL (32.0-36.0) Red Cell Distribution Width 13.6 % (11.6-14.8) Platelet Count 153 K/UL (150-450) Mean Platelet Volume 5.4 FL (6.5-10.1) L Neutrophils (%) (Auto) 63.7 % (45.0-75.0) Lymphocytes (%) (Auto) 22.5 % (20.0-45.0) Monocytes (%) (Auto) 7.3 % (1.0-10.0) Eosinophils (%) (Auto) 5.0 % (0.0-3.0) H Basophils (%) (Auto) 1.5 % (0.0-2.0) Sodium Level 142 MMOL/L (136-145) Potassium Level 4.3 MMOL/L (3.5-5.1) Chloride Level 110 MMOL/L (98-107) H Carbon Dioxide Level 25 MMOL/L (21-32) Anion Gap 7 mmol/L (5-15) Blood Urea Nitrogen 31 mg/dL (7-18) H Creatinine 2.8 MG/DL (0.55-1.30) H Estimat Glomerular Filtration Rate 22.1 mL/min (>60) Glucose Level 92 MG/DL (74-106) # Calcium Level 7.8 MG/DL (8.5-10.1) L Plan Problems: (1) DKA (diabetic ketoacidoses) (2) Renal failure (ARF), acute on chronic Assessment & Plan: s/p temp HD line recovering renal function not stable hold on removal of line (3) COVID-19 virus infection Assessment & Plan: 75-year-old male Covid positive renal insufficiency recently had temporary dialysis catheter placement develop leukocytosis soon after. Vitals noted. Exam stable. Catheter was evaluated no acute active inflammatory or infectious process identified. Catheter is clean dry intact. The dressings are not saturated. There is no active bleeding identified. There is no signs of active infection. Leukocytosis anterior collated to medications currently given for COVID-19 infection. Will monitor closely to ensure no active development of infection or related to catheter placement. Thank you for let me participate patient's care will follow with recommendations trend leukocytosis cont dressings cont care plan as noted cont HD trend renal function (4) Rhabdomyolysis Assessment & Plan: improved resuscitated no n/v tolerating diet labs improved likely secondary to down DAILY ESTIMATED NEEDS: Needs based on DM, pulmonary 68.4kg 25-30 kcals/kg total kcals 1-1.5 g protein/kg 68-102 g total protein 25-30 mL/kg total fluid mLs NUTRITION DIAGNOSIS: Altered nutrition related lab values r/t DKA as evidenced by Uglu 4+ on adm, small acetone detected, BG 1087 upon adm-> now improved, A1C 8.1. CURRENT DIET: Renal/ pureed moist+ Ensure TID PO DIET RECOMMENDATIONS: RENAL/ CCHO MED diet (texture as tolerated) ADDITIONAL RECOMMENDATIONS: 1) Monitor renal fxn and lytes, continuity of HD last HD 11/08, K, phos, mag wnl 2) Monitor BGs closely for hypoglycemia w/ insulin regimen 3) Maintain calibrated bed scale wts 4) Nephrovite x 1 5) Monitor for continued improved intake - rec to decrease HPN to QD at this time. Rec Nepro (5) Diabetes mellitus out of control (6) Abnormal thyroid blood test (7) NSTEMI (non-ST elevated myocardial infarction) Additional Comments d/c planning pending placement Norberto Steele Nov 23, 2020 16:27
--- NOTE | 2020-11-23 16:41 | NUR ---
INSURANCE CLINICALS AND REVIEW FAXED TO [facility]ER[facility] T: [phone] F: [phone]
--- NOTE | 2020-11-23 19:29 | NUR ---
NURSE HAND-OFF REPORT: Important Events on Shift:d/c planning Patient Status: stable Diet: renal mech soft Pending Orders: n/a Pending Results/Labs:n/a Pending MD notification:n/a Latest Vital Signs: Temperature 97.9 , Pulse 53 , B/P 106 /53 , Respiratory Rate 19 , O2 SAT 98 , Nasal Cannula, O2 Flow Rate 2.0 . Vital Sign Comment: stable EKG Rhythm: Sinus Bradycardia Rhythm change?: N MD Notified?: MD Respons Latest Bhat Fall Score: 75 Fall Risk: High Risk Safety Measures: Call light Within Reach, Bed Alarm Zone 1, Side Rails Side Rails x3, Bed position Low and Locked. Fall Precautions: Yellow Socks Yellow Gown Report given to My,RN.
--- NOTE | 2020-11-23 19:30 | NUR ---
NURSE NOTES: Received pt and report from ARPITA Rizo. Observed pt resting in bed and watching television. Pt is A/Ox2-3. surveillance monitor is in placed; pt is SR w/1st degree HB. IV site intact, asymptomatic, and patent. Bed is in the lowest position and locked. Call light and bedside table is within reach. No sign/symptoms of acute distress noted. Will continue plan of care.
[2020-11-23 20:00] VITALS: BP 126/56
--- NOTE | 2020-11-23 20:22 | General Progress Note ---
Subjective ROS Limited/Unobtainable: Yes Allergies: Coded Allergies: No Known Allergies (Unverified , 10/31/20) Objective Last 24 Hour Vital Signs Date Time Temp Pulse Resp B/P (MAP) Pulse Ox O2 Delivery O2 Flow Rate FiO2 11/23/20 17:03 53 106/53 11/23/20 16:00 53 11/23/20 16:00 97.9 58 19 106/53 (70) 98 11/23/20 12:00 54 11/23/20 12:00 96.8 53 20 102/53 (69) 95 11/23/20 09:00 Room Air 11/23/20 08:12 67 135/55 11/23/20 08:12 67 135/55 11/23/20 08:00 66 11/23/20 08:00 97.9 67 20 135/55 (81) 94 11/23/20 04:00 97.9 61 20 115/61 (79) 97 11/23/20 04:00 61 11/23/20 00:00 62 11/23/20 00:00 97.9 62 20 122/59 (80) 97 11/22/20 21:13 62 135/62 11/22/20 21:00 Room Air Intake and Output 11/22/20 11/23/20 19:00 07:00 Intake Total 800 ml 120 ml Output Total 800 ml 800 ml Balance 0 ml -680 ml Intake Oral 800 ml 120 ml Output Urine Total 800 ml 800 ml # Voids 3 4 Laboratory Tests 11/22/20 20:40: POC Whole Blood Glucose 163H 11/23/20 05:07: POC Whole Blood Glucose 88 11/23/20 06:00: White Blood Count 5.2, Red Blood Count 2.98L, Hemoglobin 8.9L, Hematocrit 27.0L, Mean Corpuscular Volume 90, Mean Corpuscular Hemoglobin 29.9, Mean Corpuscular Hemoglobin Concent 33.1, Red Cell Distribution Width 13.6, Platelet Count 153, Mean Platelet Volume 5.4L, Neutrophils (%) (Auto) 63.7, Lymphocytes (%) (Auto) 22.5, Monocytes (%) (Auto) 7.3, Eosinophils (%) (Auto) 5.0H, Basophils (%) (A uto) 1.5, Sodium Level 142, Potassium Level 4.3, Chloride Level 110H, Carbon Dioxide Level 25, Anion Gap 7, Blood Urea Nitrogen 31H, Creatinine 2.8H, Estimat Glomerular Filtration Rate 22.1, Glucose Level 92#, Calcium Level 7.8L Height (Feet): 5 Height (Inches): 5.00 Weight (Pounds): 150 Assessment/Plan Problem List: (1) Renal failure (ARF), acute on chronic ICD Codes: N17.9 - Acute kidney failure, unspecified; N18.9 - Chronic kidney disease, unspecified SNOMED: 517302993 (2) DKA (diabetic ketoacidoses) ICD Codes: E11.10 - Type 2 diabetes mellitus with ketoacidosis without coma SNOMED: 886612892, 65053383 (3) COVID-19 virus infection ICD Codes: U07.1 - COVID-19 SNOMED: 051391309 (4) Rhabdomyolysis ICD Codes: M62.82 - Rhabdomyolysis SNOMED: 792151656 (5) Diabetes mellitus out of control ICD Codes: E11.65 - Type 2 diabetes mellitus with hyperglycemia SNOMED: 91509831, 660289515 (6) Abnormal thyroid blood test ICD Codes: R79.89 - Other specified abnormal findings of blood chemistry SNOMED: 561607565, 765899730117926 (7) NSTEMI (non-ST elevated myocardial infarction) ICD Codes: I21.4 - Non-ST elevation (NSTEMI) myocardial infarction SNOMED: 43449379 Status: progressing, unchanged Assessment/Plan: covid + weak nees snf placement afebrile needs to go to snf for PT/OT Corey Soto MD Nov 23, 2020 20:22
[2020-11-23] MEDS: Levemir Flexpen SUBQ SCH (20:49)
[2020-11-23] MEDS ORDERED: Milk of Magnesia 30ml Ud ORAL PRN (21:30)
[2020-11-23] MEDS: Acetaminophen 500mg (ES) tab ORAL PRN (23:52)
[2020-11-24] VITALS: BP 116/59
--- NOTE | 2020-11-24 01:08 | NUR ---
NURSE NOTES: Observed pt calm and asleep in bed. No signs/symptoms of acute distress noted. Will continue plan of care.
[2020-11-24 04:00] VITALS: BP 126/52
[2020-11-24] MEDS: sitaGLIPtin 25mg tab ORAL SCH (05:35)
[2020-11-24] MEDS: Acetaminophen 500mg (ES) tab ORAL PRN (05:36)
[2020-11-24] MEDS: NovoLOG Insulin Flexpen SUBQ SCH ×3 (06:05→11:44)
--- NOTE | 2020-11-24 06:18 | General Progress Note ---
Subjective ROS Limited/Unobtainable: Yes Allergies: Coded Allergies: No Known Allergies (Unverified , 10/31/20) Subjective events noted interval notes reviewed mealtime glucose values are elevated Item Value Date Time Bedside Blood Glucose 132 mg/dl H 11/24/20 0611 Bedside Blood Glucose 206 mg/dl H 11/23/20 2100 Bedside Blood Glucose 290 mg/dl H 11/23/20 1630 Bedside Blood Glucose 243 mg/dl H 11/23/20 1146 Bedside Blood Glucose 88 mg/dl 11/23/20 0630 Objective Last 24 Hour Vital Signs Date Time Temp Pulse Resp B/P (MAP) Pulse Ox O2 Delivery O2 Flow Rate FiO2 11/24/20 04:00 63 11/24/20 04:00 99.2 61 20 126/52 (76) 95 11/24/20 00:00 64 11/24/20 00:00 97.9 64 20 116/59 (78) 97 11/23/20 21:00 Room Air 11/23/20 20:47 65 126/56 11/23/20 20:00 60 11/23/20 20:00 97.7 61 19 126/56 (79) 95 11/23/20 17:03 53 106/53 11/23/20 16:00 53 11/23/20 16:00 97.9 58 19 106/53 (70) 98 11/23/20 12:00 54 11/23/20 12:00 96.8 53 20 102/53 (69) 95 11/23/20 09:00 Room Air 11/23/20 08:12 67 135/55 11/23/20 08:12 67 135/55 11/23/20 08:00 66 11/23/20 08:00 97.9 67 20 135/55 (81) 94 Intake and Output 11/23/20 11/24/20 19:00 07:00 Intake Total 1000 ml Output Total 1200 ml Balance -200 ml Intake Oral 1000 ml Output Urine Total 1200 ml Laboratory Tests 11/23/20 11:41: POC Whole Blood Glucose [Pending] 11/23/20 16:15: POC Whole Blood Glucose [Pending] 11/23/20 19:41: POC Whole Blood Glucose 206H 11/24/20 05:33: White Blood Count [Pending], Red Blood Count [Pending], Hemoglobin [Pending], Hematocrit [Pending], Mean Corpuscular Volume [Pending], Mean Corpuscular Hemoglobin [Pending], Mean Corpuscular Hemoglobin Concent [Pending], Red Cell Distribution Width [Pending], Platelet Count [Pending], Mean Platelet Volume [Pending], Neutrophils (%) (Auto) [Pending], Lymphocytes (%) (Auto) [Pending], Monocytes (%) (Auto) [Pending], Eosinophils (%) (Auto) [Pending], Basophils (%) (Auto) [Pending], Sodium Level [Pending], Potassium Level [Pending], Chloride Level [Pending], Carbon Dioxide Level [Pending], Blood Urea Nitrogen [Pending], Creatinine [Pending], Estimat Glomerular Filtration Rate [Pending], Glucose Level [Pending], Calcium Level [Pending] 11/24/20 05:47: POC Whole Blood Glucose 132H Height (Feet): 5 Height (Inches): 5.00 Weight (Pounds): 150 General Appearance: no apparent distress Neck: normal alignment Cardiovascular: normal rate Respiratory/Chest: decreased breath sounds Abdomen: normal bowel sounds Objective Current Medications Medications (Trade) Dose Ordered Sig/Manasa Route PRN Reason Start Time Stop Time Status Last Admin Dose Admin Acetaminophen (Tylenol) 500 mg Q4H PRN ORAL For Pain 11/01/20 01:00 12/01/20 00:59 11/24/20 05:36 Acetaminophen (Tylenol) 650 mg Q4H PRN RECTAL Temp >100.5 11/01/20 21:30 12/01/20 21:29 Allopurinol (Zyloprim) 200 mg DAILY ORAL 11/01/20 16:00 12/01/20 15:59 11/23/20 08:12 Amiodarone HCl (Cordarone) 200 mg DAILY ORAL 11/10/20 09:00 02/08/21 08:59 11/23/20 08:12 Clonidine HCl (Catapres Tab) 0.1 mg Q4H PRN ORAL bp over 160 syst 10/31/20 17:45 01/29/21 17:44 11/01/20 09:20 Dextrose (Dextrose 50%) 25 ml Q30M PRN IV Hypoglycemia 11/01/20 07:15 01/30/21 07:14 Dextrose (Dextrose 50%) 50 ml Q30M PRN IV Hypoglycemia 11/01/20 07:15 01/30/21 07:14 Diltiazem HCl (Cardizem Tab) 90 mg BID ORAL 11/07/20 10:15 12/02/20 17:59 11/23/20 08:12 Docusate Sodium (Colace) 100 mg TWICE A DAY ORAL 11/24/20 09:00 12/24/20 08:59 Enoxaparin Sodium (Lovenox) 30 mg DAILY SUBQ 11/16/20 09:00 02/14/21 08:59 11/23/20 08:11 Haloperidol Lactate (Haldol) 5 mg Q6H PRN IM Agitation 11/06/20 21:30 12/21/20 21:29 11/21/20 06:31 Insulin Aspart (NovoLOG) BEFORE MEALS AND HS SUBQ 11/01/20 11:30 01/30/21 11:29 11/23/20 20:48 Insulin Aspart (NovoLOG) 5 units NOVOTIAC SUBQ 11/21/20 11:50 02/18/21 06:29 11/24/20 06:11 Insulin Detemir (Levemir) 15 units QHS SUBQ 11/21/20 21:00 02/18/21 20:59 11/23/20 20:49 Magnesium Hydroxide (Mom) 30 ml Q4H PRN ORAL Constipation 11/23/20 21:30 12/23/20 21:29 11/23/20 21:54 Methimazole (Tapazole) 10 mg DAILY ORAL 11/03/20 09:00 12/03/20 08:59 11/23/20 08:11 Metoprolol Tartrate (Lopressor) 50 mg Q12HR ORAL 11/01/20 21:00 01/30/21 20:59 11/23/20 20:47 Ondansetron HCl (Zofran) 4 mg Q6H PRN IVP Nausea & Vomiting 11/07/20 16:30 12/07/20 16:29 11/07/20 17:28 Pantoprazole (Protonix) 40 mg BID ORAL 10/31/20 18:00 11/30/20 17:44 11/23/20 17:02 Sitagliptin Phosphate (Januvia) 25 mg ACBREAKFAST ORAL 11/06/20 06:30 12/06/20 06:29 11/24/20 05:35 Tamsulosin HCl (Flomax) 0.4 mg BID ORAL 11/03/20 12:00 12/03/20 11:59 11/23/20 17:02 Vitamin D (Vitamin D) 5,000 unit DAILY ORAL 11/13/20 09:00 12/13/20 08:59 11/23/20 08:12 Assessment/Plan Problem List: (1) Abnormal thyroid blood test ICD Codes: R79.89 - Other specified abnormal findings of blood chemistry SNOMED: 448904516, 115709517383641 (2) Diabetes mellitus out of control ICD Codes: E11.65 - Type 2 diabetes mellitus with hyperglycemia SNOMED: 73393675, 246300905 (3) Renal failure (ARF), acute on chronic ICD Codes: N17.9 - Acute kidney failure, unspecified; N18.9 - Chronic kidney disease, unspecified SNOMED: 846078940 (4) COVID-19 virus infection ICD Codes: U07.1 - COVID-19 SNOMED: 663899296 (5) DKA (diabetic ketoacidoses) ICD Codes: E11.10 - Type 2 diabetes mellitus with ketoacidosis without coma SNOMED: 195685624, 14219856 (6) NSTEMI (non-ST elevated myocardial infarction) ICD Codes: I21.4 - Non-ST elevation (NSTEMI) myocardial infarction SNOMED: 39117437 Status: progressing, unchanged Assessment/Plan: continue Levemir 15 units qhs increase Novolog to 6 units ac tid continue Novolog sliding scale ac hs continue Januvia 25 mg daily thyroid function improved continue Tapazole 10 mg daily repeat TSH, free T4 in 2-3 weeks Markus Tamez MD Nov 24, 2020 06:18
--- NOTE | 2020-11-24 06:30 | Hematology/Onc Progress Note ---
Assessment/Plan Assessment/Plan Assessment/Plan # Anemia of chronic disease due to underlying chronic medical issues, Multifactorial --> Anemia w/u has been ordered --> No evidence of hemolysis is noted, peripheral smear has been reviewed. --> Hgb goal >7. Transfuse prn. --> Epogen or iron at this time is not particularly indicated --> hgb 7.8->8.3-->7-->8.8 -> 1 unit prbc 11/21 # Thrombocytopenia - potential causes multifactorial, evaluate liver and viral etiologies, in this case due to covid19+++++ --> Hep panel and HIV ordered --> US abd to evaluate for cirrhosis and hsm ordered-->neg --> Peripheral smear ordered to evaluate for blasts /schistocytes --> abx and other meds have been reviewed --> ok for ppx if plt >50k w/ wither heparin or lovenox --> plt 128->125 # Elevated ddimer due to covid19+++ --> venous duplex neg --> ok for lovenox sq # NSTEMI with troponin of 0.25 and 0.35 in this patient with DKA as well as atrial flutter with rapid ventricular response. --> per cards, metoprolol 50 mg b.i.d. EF 65% # Atrial flutter with RVR On metoprolol 50 mg bid, Cardizem 90 bid and Amiodarone 200 po daily --> Eliquis held for hematuria # Diabetic ketoacidosis with glucose of more than 1000. # Accelerated hypertension. On Lopressor 50 bid and Cardizem 90 bid # COVID positive pneumonia. # Acute Renal failure in the setting of total CK of 1900, maybe rhabdomyolysis- induced renal failure. --> hd per renal --> S/P Bakari Hand on 11/11/20 # Dvt ppx lovenox sq Time of note does not necessarily correspond to the time the patient was seen. Appreciate consultation greatly. Subjective Constitutional: Denies: no symptoms, chills, fever, malaise, weakness, other HEENT: Denies: no symptoms, eye pain, blurred vision, tearing, double vision, ear pain, ear discharge, nose pain, nose congestion, throat pain, throat swelling, mouth pain, mouth swelling, other Cardiovascular: Denies: no symptoms, chest pain, edema, irregular heart rate, lightheadedness, palpitations, syncope, other Respiratory: Denies: no symptoms, cough, shortness of breath, SOB with excertion, SOB at rest, sputum, wheezing, other Neurologic/Psychiatric: Denies: no symptoms, anxiety, depressed, emotional problems, headache, numbness, paresthesia, pre-existing deficit, seizure, ti ngling, tremors, weakness, other Endocrine: Denies: no symptoms, excessive sweating, flushing, intolerance to cold, intolerance to heat, increased hunger, increased thirst, increased urine, unexplained weight gain, unexplained weight loss, other Allergies: Coded Allergies: No Known Allergies (Unverified , 10/31/20) Subjective 11/17 meds noted, labs reviewed, cbc has been ordered for today hgb 7.7 11/18 meds reviewed, is asymptomatic, labs ordered, no night sweats 11/21 no major changes, labs ordered plts remain low, hgb stable 11/22 ivl with bruising, labs are still pending, have ordered cbc 11/23 does have decub wound, labs noted, meds reviewed 11/24 labs are pending, is calm and cooperative, meds noted Objective Objective Current Medications Medications (Trade) Dose Ordered Sig/Manasa Route PRN Reason Start Time Stop Time Status Last Admin Dose Admin Acetaminophen (Tylenol) 500 mg Q4H PRN ORAL For Pain 11/01/20 01:00 12/01/20 00:59 11/24/20 05:36 Acetaminophen (Tylenol) 650 mg Q4H PRN RECTAL Temp >100.5 11/01/20 21:30 12/01/20 21:29 Allopurinol (Zyloprim) 200 mg DAILY ORAL 11/01/20 16:00 12/01/20 15:59 11/23/20 08:12 Amiodarone HCl (Cordarone) 200 mg DAILY ORAL 11/10/20 09:00 02/08/21 08:59 11/23/20 08:12 Clonidine HCl (Catapres Tab) 0.1 mg Q4H PRN ORAL bp over 160 syst 10/31/20 17:45 01/29/21 17:44 11/01/20 09:20 Dextrose (Dextrose 50%) 25 ml Q30M PRN IV Hypoglycemia 11/01/20 07:15 01/30/21 07:14 Dextrose (Dextrose 50%) 50 ml Q30M PRN IV Hypoglycemia 11/01/20 07:15 01/30/21 07:14 Diltiazem HCl (Cardizem Tab) 90 mg BID ORAL 11/07/20 10:15 12/02/20 17:59 11/23/20 08:12 Docusate Sodium (Colace) 100 mg TWICE A DAY ORAL 11/24/20 09:00 12/24/20 08:59 Enoxaparin Sodium (Lovenox) 30 mg DAILY SUBQ 11/16/20 09:00 02/14/21 08:59 11/23/20 08:11 Haloperidol Lactate (Haldol) 5 mg Q6H PRN IM Agitation 11/06/20 21:30 12/21/20 21:29 11/21/20 06:31 Insulin Aspart (NovoLOG) BEFORE MEALS AND HS SUBQ 11/01/20 11:30 01/30/21 11:29 11/23/20 20:48 Insulin Aspart (NovoLOG) 6 units NOVOTIAC SUBQ 11/24/20 11:50 02/18/21 06:29 Insulin Detemir (Levemir) 15 units QHS SUBQ 11/21/20 21:00 02/18/21 20:59 11/23/20 20:49 Magnesium Hydroxide (Mom) 30 ml Q4H PRN ORAL Constipation 11/23/20 21:30 12/23/20 21:29 11/23/20 21:54 Methimazole (Tapazole) 10 mg DAILY ORAL 11/03/20 09:00 12/03/20 08:59 11/23/20 08:11 Metoprolol Tartrate (Lopressor) 50 mg Q12HR ORAL 11/01/20 21:00 01/30/21 20:59 11/23/20 20:47 Ondansetron HCl (Zofran) 4 mg Q6H PRN IVP Nausea & Vomiting 11/07/20 16:30 12/07/20 16:29 11/07/20 17:28 Pantoprazole (Protonix) 40 mg BID ORAL 10/31/20 18:00 11/30/20 17:44 11/23/20 17:02 Sitagliptin Phosphate (Januvia) 25 mg ACBREAKFAST ORAL 11/06/20 06:30 12/06/20 06:29 11/24/20 05:35 Tamsulosin HCl (Flomax) 0.4 mg BID ORAL 11/03/20 12:00 12/03/20 11:59 11/23/20 17:02 Vitamin D (Vitamin D) 5,000 unit DAILY ORAL 11/13/20 09:00 12/13/20 08:59 11/23/20 08:12 Last 24 Hour Vital Signs Date Time Temp Pulse Resp B/P (MAP) Pulse Ox O2 Delivery O2 Flow Rate FiO2 11/24/20 04:00 63 11/24/20 04:00 99.2 61 20 126/52 (76) 95 11/24/20 00:00 64 11/24/20 00:00 97.9 64 20 116/59 (78) 97 11/23/20 21:00 Room Air 11/23/20 20:47 65 126/56 11/23/20 20:00 60 11/23/20 20:00 97.7 61 19 126/56 (79) 95 11/23/20 17:03 53 106/53 11/23/20 16:00 53 11/23/20 16:00 97.9 58 19 106/53 (70) 98 11/23/20 12:00 54 11/23/20 12:00 96.8 53 20 102/53 (69) 95 11/23/20 09:00 Room Air 11/23/20 08:12 67 135/55 11/23/20 08:12 67 135/55 11/23/20 08:00 66 11/23/20 08:00 97.9 67 20 135/55 (81) 94 11/23/20 04:00 97.9 61 20 115/61 (79) 97 11/23/20 04:00 61 11/23/20 00:00 62 11/23/20 00:00 97.9 62 20 122/59 (80) 97 11/22/20 21:13 62 135/62 11/22/20 21:00 Room Air 11/22/20 20:00 98.4 62 20 135/62 (86) 98 11/22/20 20:00 63 11/22/20 17:08 61 128/54 11/22/20 16:00 59 11/22/20 16:00 98.2 60 20 128/54 (78) 98 11/22/20 12:00 97.9 62 20 133/64 (87) 96 11/22/20 12:00 61 11/22/20 09:00 Room Air 11/22/20 08:33 76 138/64 11/22/20 08:32 76 138/64 11/22/20 08:00 65 11/22/20 08:00 98.2 76 20 138/64 (88) 97 Intake and Output 11/23/20 11/24/20 19:00 07:00 Intake Total 1000 ml 600 ml Output Total 1200 ml 900 ml Balance -200 ml -300 ml Intake Oral 1000 ml 600 ml Output Urine Total 1200 ml 900 ml # Voids 3 Labs Test 11/21/20 07:30 11/21/20 11:30 11/21/20 11:56 11/21/20 17:04 Thyroid Stimulating Hormone (TSH) 1.513 uiU/mL (0.358-3.740) Free Thyroxine 1.32 NG/DL (0.76-1.46) Free Triiodothyronine 1.2 pg/mL (2.3-4.2) White Blood Count 6.1 K/UL (4.8-10.8) Red Blood Count 2.38 M/UL (4.70-6.10) Hemoglobin 7.0 G/DL (14.2-18.0) Hematocrit 22.2 % (42.0-52.0) Mean Corpuscular Volume 94 FL (80-99) Mean Corpuscular Hemoglobin 29.6 PG (27.0-31.0) Mean Corpuscular Hemoglobin Concent 31.6 G/DL (32.0-36.0) Red Cell Distribution Width 12.8 % (11.6-14.8) Platelet Count 133 K/UL (150-450) Mean Platelet Volume 5.1 FL (6.5-10.1) Neutrophils (%) (Auto) 71.3 % (45.0-75.0) Lymphocytes (%) (Auto) 17.6 % (20.0-45.0) Monocytes (%) (Auto) 6.6 % (1.0-10.0) Eosinophils (%) (Auto) 3.4 % (0.0-3.0) Basophils (%) (Auto) 0.6 % (0.0-2.0) POC Whole Blood Glucose 178 MG/DL (74-106) 282 MG/DL (74-106) Test 11/21/20 20:15 11/22/20 05:45 11/22/20 05:57 11/22/20 16:17 POC Whole Blood Glucose 171 MG/DL (74-106) 205 MG/DL (74-106) 181 MG/DL (74-106) White Blood Count 5.1 K/UL (4.8-10.8) Red Blood Count 2.96 M/UL (4.70-6.10) Hemoglobin 8.8 G/DL (14.2-18.0) Hematocrit 27.0 % (42.0-52.0) Mean Corpuscular Volume 91 FL (80-99) Mean Corpuscular Hemoglobin 29.6 PG (27.0-31.0) Mean Corpuscular Hemoglobin Concent 32.4 G/DL (32.0-36.0) Red Cell Distribution Width 13.9 % (11.6-14.8) Platelet Count 142 K/UL (150-450) Mean Platelet Volume 6.2 FL (6.5-10.1) Neutrophils (%) (Auto) 69.9 % (45.0-75.0) Lymphocytes (%) (Auto) 17.9 % (20.0-45.0) Monocytes (%) (Auto) 6.5 % (1.0-10.0) Eosinophils (%) (Auto) 4.4 % (0.0-3.0) Basophils (%) (Auto) 1.3 % (0.0-2.0) Sodium Level 138 MMOL/L (136-145) Potassium Level 4.6 MMOL/L (3.5-5.1) Chloride Level 107 MMOL/L (98-107) Carbon Dioxide Level 24 MMOL/L (21-32) Anion Gap 8 mmol/L (5-15) Blood Urea Nitrogen 32 mg/dL (7-18) Creatinine 2.8 MG/DL (0.55-1.30) Estimat Glomerular Filtration Rate 22.1 mL/min (>60) Glucose Level 222 MG/DL (74-106) Calcium Level 8.1 MG/DL (8.5-10.1) Phosphorus Level 3.5 MG/DL (2.5-4.9) Magnesium Level 1.9 MG/DL (1.8-2.4) Total Bilirubin 0.3 MG/DL (0.2-1.0) Aspartate Amino Transf (AST/SGOT) 13 U/L (15-37) Alanine Aminotransferase (ALT/SGPT) 15 U/L (12-78) Alkaline Phosphatase 89 U/L (46-116) C-Reactive Protein, Quantitative 1.7 mg/dL (0.00-0.90) Pro-B-Type Natriuretic Peptide 1138 pg/mL (0-125) Total Protein 5.1 G/DL (6.4-8.2) Albumin 1.6 G/DL (3.4-5.0) Globulin 3.5 g/dL Albumin/Globulin Ratio 0.5 (1.0-2.7) Test 11/22/20 20:40 11/23/20 05:07 11/23/20 06:00 11/23/20 11:41 POC Whole Blood Glucose 163 MG/DL (74-106) 88 MG/DL (74-106) White Blood Count 5.2 K/UL (4.8-10.8) Red Blood Count 2.98 M/UL (4.70-6.10) Hemoglobin 8.9 G/DL (14.2-18.0) Hematocrit 27.0 % (42.0-52.0) Mean Corpuscular Volume 90 FL (80-99) Mean Corpuscular Hemoglobin 29.9 PG (27.0-31.0) Mean Corpuscular Hemoglobin Concent 33.1 G/DL (32.0-36.0) Red Cell Distribution Width 13.6 % (11.6-14.8) Platelet Count 153 K/UL (150-450) Mean Platelet Volume 5.4 FL (6.5-10.1) Neutrophils (%) (Auto) 63.7 % (45.0-75.0) Lymphocytes (%) (Auto) 22.5 % (20.0-45.0) Monocytes (%) (Auto) 7.3 % (1.0-10.0) Eosinophils (%) (Auto) 5.0 % (0.0-3.0) Basophils (%) (Auto) 1.5 % (0.0-2.0) Sodium Level 142 MMOL/L (136-145) Potassium Level 4.3 MMOL/L (3.5-5.1) Chloride Level 110 MMOL/L (98-107) Carbon Dioxide Level 25 MMOL/L (21-32) Anion Gap 7 mmol/L (5-15) Blood Urea Nitrogen 31 mg/dL (7-18) Creatinine 2.8 MG/DL (0.55-1.30) Estimat Glomerular Filtration Rate 22.1 mL/min (>60) Glucose Level 92 MG/DL (74-106) Calcium Level 7.8 MG/DL (8.5-10.1) Test 11/23/20 16:15 11/23/20 19:41 11/24/20 05:33 11/24/20 05:47 POC Whole Blood Glucose 206 MG/DL (74-106) 132 MG/DL (74-106) Height (Feet): 5 Height (Inches): 5.00 Weight (Pounds): 150 Objective Physical Exam: Vitals: reviewed General: NAD HEENT: nc, at Neck: supple Chest: clear breath sounds bilaterally Cardiovascular: RRR, no s3, s4 Abdomen: soft, nontender, nd Extremities: no cce, normal range of motion Neuro: alert and oriented Montrell Weaver MD Nov 24, 2020 06:30
[2020-11-24 06:48] LABS: BASOPHILS % (AUTO) 0.7 % (0.0-2.0); EOSINOPHILS % (AUTO) 5.9 % (0.0-3.0); HEMOGLOBIN 8.7 G/DL (14.2-18.0); LYMPHOCYTES % (AUTO) 23.1 % (20.0-45.0); MEAN CORPUSCULAR VOLUME 92 FL (80-99); MONOCYTES % (AUTO) 9.7 % (1.0-10.0); NEUTROPHILS % (AUTO) 60.5 % (45.0-75.0); PLATELET COUNT 181 K/UL (150-450); RED BLOOD COUNT 2.93 M/UL (4.70-6.10); RED CELL DISTRIBUTION WIDTH 13.7 % (11.6-14.8)
[2020-11-24 06:56] LABS: CALCIUM 8.2 MG/DL (8.5-10.1); CREATININE 2.7 MG/DL (0.55-1.30); POTASSIUM 4.4 MMOL/L (3.5-5.1)
--- NOTE | 2020-11-24 07:33 | NUR ---
NURSE NOTES: Received report from Maria Eugenia Jones RN. Patient sleeping, HOB at 30 degrees, side rails up x 2, bed in lowest position, wheel locked, call light within reach, soft care mattress in place, urinal at bedside, on room air, respirations at 15 breaths per minute, in no apparent distress.
--- NOTE | 2020-11-24 07:44 | NUR ---
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 No complaints of CP or SOB. Patient Status: Stable Diet: Renal Pending Orders: N Pending Results/Labs: AM Labs Pending MD notification: N Latest Vital Signs: Temperature 99.2 , Pulse 61 , B/P 126 /52 , Respiratory Rate 20 , O2 SAT 95 , Nasal Cannula, O2 Flow Rate 2.0 . EKG Rhythm: SR w/1st degree HB Rhythm change?: N Latest Bhat Fall Score: 75 Fall Risk: High Risk Safety Measures: Call light Within Reach, Bed Alarm Zone 1, Side Rails Side Rails x3, Bed position Low and Locked. Fall Precautions: Yellow Socks Yellow Gown Door Sign Patient Fall Education Report given to ARPITA Victoria.
[2020-11-24 08:00] VITALS: BP 131/55
[2020-11-24] MEDS ORDERED: Docusate 100mg cap ORAL SCH (09:00)
[2020-11-24] MEDS: Metoprolol Tartrate 50mg tab ORAL SCH (09:07)
[2020-11-24] MEDS: Tamsulosin 0.4mg cap ORAL SCH (09:08)
[2020-11-24] MEDS: Allopurinol 100mg Tab ORAL SCH (09:08)
[2020-11-24] MEDS: methIMAzole 10mg tab ORAL SCH (09:08)
[2020-11-24] MEDS: Enoxaparin 30mg Inj SUBQ SCH (09:08)
[2020-11-24] MEDS: dilTIAZem HCl 90mg tab ORAL SCH (09:09)
[2020-11-24] MEDS: Amiodarone 200mg tab ORAL SCH (09:09)
[2020-11-24] MEDS: Vitamin D 1000 units Tab ORAL SCH (09:25)
--- NOTE | 2020-11-24 09:29 | NUR ---
Received a call from [facility], confirming if the patient is still coming to their facility. [facility] is expecting Pt.today.
--- NOTE | 2020-11-24 10:16 | Infectious Diseases Prog Note ---
Assessment/Plan Assessment/Plan A; COVID19 pneumonia Hypoxemia Acute renal failure improving Rhabdomyolysis Diarrhea, C. difficile negative DKA Hyperthyroidism Anemia Leukocytosis improving Dementia P; Finished Dexamethasone course Observe off antibiotic Waiting for placement Subjective ROS Limited/Unobtainable: Yes Allergies: Coded Allergies: No Known Allergies (Unverified , 10/31/20) Objective Last 24 Hour Vital Signs Date Time Temp Pulse Resp B/P (MAP) Pulse Ox O2 Delivery O2 Flow Rate FiO2 11/24/20 09:09 59 131/55 11/24/20 09:07 59 131/55 11/24/20 09:00 Room Air 11/24/20 08:00 59 11/24/20 08:00 98.6 67 20 131/55 (80) 95 11/24/20 04:00 63 11/24/20 04:00 99.2 61 20 126/52 (76) 95 11/24/20 00:00 64 11/24/20 00:00 97.9 64 20 116/59 (78) 97 11/23/20 21:00 Room Air 11/23/20 20:47 65 126/56 11/23/20 20:00 60 11/23/20 20:00 97.7 61 19 126/56 (79) 95 11/23/20 17:03 53 106/53 11/23/20 16:00 53 11/23/20 16:00 97.9 58 19 106/53 (70) 98 11/23/20 12:00 54 11/23/20 12:00 96.8 53 20 102/53 (69) 95 Height (Feet): 5 Height (Inches): 5.00 Weight (Pounds): 150 HEENT: mucous membranes moist Respiratory/Chest: no respiratory distress Cardiovascular: normal rate Abdomen: soft, non tender Extremities: no edema Neurologic/Psychiatric: other - sleeping Laboratory Tests Test 11/23/20 11:41 11/23/20 16:15 11/23/20 19:41 11/24/20 05:33 POC Whole Blood Glucose Pending Pending 206 MG/DL (74-106) H White Blood Count 4.0 K/UL (4.8-10.8) L Red Blood Count 2.93 M/UL (4.70-6.10) L Hemoglobin 8.7 G/DL (14.2-18.0) L Hematocrit 27.0 % (42.0-52.0) L Mean Corpuscular Volume 92 FL (80-99) Mean Corpuscular Hemoglobin 29.6 PG (27.0-31.0) Mean Corpuscular Hemoglobin Concent 32.0 G/DL (32.0-36.0) Red Cell Distribution Width 13.7 % (11.6-14.8) Platelet Count 181 K/UL (150-450) Mean Platelet Volume 5.8 FL (6.5-10.1) L Neutrophils (%) (Auto) 60.5 % (45.0-75.0) Lymphocytes (%) (Auto) 23.1 % (20.0-45.0) Monocytes (%) (Auto) 9.7 % (1.0-10.0) Eosinophils (%) (Auto) 5.9 % (0.0-3.0) H Basophils (%) (Auto) 0.7 % (0.0-2.0) Sodium Level 140 MMOL/L (136-145) Potassium Level 4.4 MMOL/L (3.5-5.1) Chloride Level 108 MMOL/L (98-107) H Carbon Dioxide Level 27 MMOL/L (21-32) Anion Gap 6 mmol/L (5-15) Blood Urea Nitrogen 31 mg/dL (7-18) H Creatinine 2.7 MG/DL (0.55-1.30) H Estimat Glomerular Filtration Rate 23.1 mL/min (>60) Glucose Level 149 MG/DL (74-106) H Calcium Level 8.2 MG/DL (8.5-10.1) L Test 11/24/20 05:47 POC Whole Blood Glucose 132 MG/DL (74-106) H Current Medications Medications (Trade) Dose Ordered Sig/Manasa Route PRN Reason Start Time Stop Time Status Last Admin Dose Admin Acetaminophen (Tylenol) 500 mg Q4H PRN ORAL For Pain 11/01/20 01:00 12/01/20 00:59 11/24/20 05:36 Acetaminophen (Tylenol) 650 mg Q4H PRN RECTAL Temp >100.5 11/01/20 21:30 12/01/20 21:29 Allopurinol (Zyloprim) 200 mg DAILY ORAL 11/01/20 16:00 12/01/20 15:59 1/28/21 09:08 Amiodarone HCl (Cordarone) 200 mg DAILY ORAL 11/10/20 09:00 02/08/21 08:59 11/24/20 09:09 Clonidine HCl (Catapres Tab) 0.1 mg Q4H PRN ORAL bp over 160 syst 10/31/20 17:45 01/29/21 17:44 11/01/20 09:20 Dextrose (Dextrose 50%) 25 ml Q30M PRN IV Hypoglycemia 11/01/20 07:15 01/30/21 07:14 Dextrose (Dextrose 50%) 50 ml Q30M PRN IV Hypoglycemia 11/01/20 07:15 01/30/21 07:14 Diltiazem HCl (Cardizem Tab) 90 mg BID ORAL 11/07/20 10:15 12/02/20 17:59 11/24/20 09:09 Docusate Sodium (Colace) 100 mg TWICE A DAY ORAL 11/24/20 09:00 12/24/20 08:59 11/24/20 09:07 Enoxaparin Sodium (Lovenox) 30 mg DAILY SUBQ 11/16/20 09:00 02/14/21 08:59 11/24/20 09:08 Haloperidol Lactate (Haldol) 5 mg Q6H PRN IM Agitation 11/06/20 21:30 12/21/20 21:29 11/21/20 06:31 Insulin Aspart (NovoLOG) BEFORE MEALS AND HS SUBQ 11/01/20 11:30 01/30/21 11:29 11/23/20 20:48 Insulin Aspart (NovoLOG) 6 units NOVOTIAC SUBQ 11/24/20 11:50 02/18/21 06:29 Insulin Detemir (Levemir) 15 units QHS SUBQ 11/21/20 21:00 02/18/21 20:59 11/23/20 20:49 Magnesium Hydroxide (Mom) 30 ml Q4H PRN ORAL Constipation 11/23/20 21:30 12/23/20 21:29 11/23/20 21:54 Methimazole (Tapazole) 10 mg DAILY ORAL 11/03/20 09:00 12/03/20 08:59 11/24/20 09:08 Metoprolol Tartrate (Lopressor) 50 mg Q12HR ORAL 11/01/20 21:00 01/30/21 20:59 11/24/20 09:07 Ondansetron HCl (Zofran) 4 mg Q6H PRN IVP Nausea & Vomiting 11/07/20 16:30 12/07/20 16:29 11/07/20 17:28 Pantoprazole (Protonix) 40 mg BID ORAL 10/31/20 18:00 11/30/20 17:44 11/24/20 09:09 Sitagliptin Phosphate (Januvia) 25 mg ACBREAKFAST ORAL 11/06/20 06:30 12/06/20 06:29 11/24/20 05:35 Tamsulosin HCl (Flomax) 0.4 mg BID ORAL 11/03/20 12:00 12/03/20 11:59 11/24/20 09:08 Vitamin D (Vitamin D) 5,000 unit DAILY ORAL 11/13/20 09:00 12/13/20 08:59 11/24/20 09:25 Reji Connelly MD Nov 24, 2020 10:16
--- NOTE | 2020-11-24 10:29 | Pulmonology Progress Note ---
Subjective ROS Limited/Unobtainable: Yes Interval Events: none major reported per nursing Constitutional: Reports: no symptoms, other - doing better; walked with PT Gastrointestinal/Abdominal: Reports: diarrhea - C. diff negative Allergies: Coded Allergies: No Known Allergies (Unverified , 10/31/20) Objective Last 24 Hour Vital Signs Date Time Temp Pulse Resp B/P (MAP) Pulse Ox O2 Delivery O2 Flow Rate FiO2 11/24/20 09:09 59 131/55 11/24/20 09:07 59 131/55 11/24/20 09:00 Room Air 11/24/20 08:00 59 11/24/20 08:00 98.6 67 20 131/55 (80) 95 11/24/20 04:00 63 11/24/20 04:00 99.2 61 20 126/52 (76) 95 11/24/20 00:00 64 11/24/20 00:00 97.9 64 20 116/59 (78) 97 11/23/20 21:00 Room Air 11/23/20 20:47 65 126/56 11/23/20 20:00 60 11/23/20 20:00 97.7 61 19 126/56 (79) 95 11/23/20 17:03 53 106/53 11/23/20 16:00 53 11/23/20 16:00 97.9 58 19 106/53 (70) 98 11/23/20 12:00 54 11/23/20 12:00 96.8 53 20 102/53 (69) 95 Intake and Output 11/23/20 11/24/20 19:00 07:00 Intake Total 1000 ml 600 ml Output Total 1200 ml 900 ml Balance -200 ml -300 ml Intake Oral 1000 ml 600 ml Output Urine Total 1200 ml 900 ml # Voids 3 Objective now on room air General Appearance: WD/WN, no acute distress HEENT: atraumatic Respiratory: chest wall non-tender Cardiovascular: normal rate, regular rhythm Abdomen: soft, non tender Laboratory Tests 11/23/20 11:41: POC Whole Blood Glucose [Pending] 11/23/20 16:15: POC Whole Blood Glucose [Pending] 11/23/20 19:41: POC Whole Blood Glucose 206H 11/24/20 05:33: White Blood Count 4.0L, Red Blood Count 2.93L, Hemoglobin 8.7L, Hematocrit 27.0L , Mean Corpuscular Volume 92, Mean Corpuscular Hemoglobin 29.6, Mean Corpuscular Hemoglobin Concent 32.0, Red Cell Distribution Width 13.7, Platelet Count 181, Mean Platelet Volume 5.8L, Neutrophils (%) (Auto) 60.5, Lymphocytes (%) (Auto) 23.1, Monocytes (%) (Auto) 9.7, Eosinophils (%) (Auto) 5.9H, Basophils (%) (Auto) 0.7, Sodium Level 140, Potassium Level 4.4, Chloride Level 108H, Carbon Dioxide Level 27, Anion Gap 6, Blood Urea Nitrogen 31H, Creatinine 2.7H, Estimat Glomerular Filtration Rate 23.1, Glucose Level 149H, Calcium Level 8.2L 11/24/20 05:47: POC Whole Blood Glucose 132H Current Medications Medications (Trade) Dose Ordered Sig/Manasa Route PRN Reason Start Time Stop Time Status Last Admin Dose Admin Acetaminophen (Tylenol) 500 mg Q4H PRN ORAL For Pain 11/01/20 01:00 12/01/20 00:59 11/24/20 05:36 Acetaminophen (Tylenol) 650 mg Q4H PRN RECTAL Temp >100.5 11/01/20 21:30 12/01/20 21:29 Allopurinol (Zyloprim) 200 mg DAILY ORAL 11/01/20 16:00 12/01/20 15:59 11/24/20 09:08 Amiodarone HCl (Cordarone) 200 mg DAILY ORAL 11/10/20 09:00 02/08/21 08:59 11/24/20 09:09 Clonidine HCl (Catapres Tab) 0.1 mg Q4H PRN ORAL bp over 160 syst 10/31/20 17:45 01/29/21 17:44 11/01/20 09:20 Dextrose (Dextrose 50%) 25 ml Q30M PRN IV Hypoglycemia 11/01/20 07:15 01/30/21 07:14 Dextrose (Dextrose 50%) 50 ml Q30M PRN IV Hypoglycemia 11/01/20 07:15 01/30/21 07:14 Diltiazem HCl (Cardizem Tab) 90 mg BID ORAL 11/07/20 10:15 12/02/20 17:59 11/24/20 09:09 Docusate Sodium (Colace) 100 mg TWICE A DAY ORAL 11/24/20 09:00 12/24/20 08:59 11/24/20 09:07 Enoxaparin Sodium (Lovenox) 30 mg DAILY SUBQ 11/16/20 09:00 02/14/21 08:59 11/24/20 09:08 Haloperidol Lactate (Haldol) 5 mg Q6H PRN IM Agitation 11/06/20 21:30 12/21/20 21:29 11/21/20 06:31 Insulin Aspart (NovoLOG) BEFORE MEALS AND HS SUBQ 11/01/20 11:30 01/30/21 11:29 11/23/20 20:48 Insulin Aspart (NovoLOG) 6 units NOVOTIAC SUBQ 11/24/20 11:50 02/18/21 06:29 Insulin Detemir (Levemir) 15 units QHS SUBQ 11/21/20 21:00 02/18/21 20:59 11/23/20 20:49 Magnesium Hydroxide (Mom) 30 ml Q4H PRN ORAL Constipation 11/23/20 21:30 12/23/20 21:29 11/23/20 21:54 Methimazole (Tapazole) 10 mg DAILY ORAL 11/03/20 09:00 12/03/20 08:59 11/24/20 09:08 Metoprolol Tartrate (Lopressor) 50 mg Q12HR ORAL 11/01/20 21:00 01/30/21 20:59 11/24/20 09:07 Ondansetron HCl (Zofran) 4 mg Q6H PRN IVP Nausea & Vomiting 11/07/20 16:30 12/07/20 16:29 11/07/20 17:28 Pantoprazole (Protonix) 40 mg BID ORAL 10/31/20 18:00 11/30/20 17:44 11/24/20 09:09 Sitagliptin Phosphate (Januvia) 25 mg ACBREAKFAST ORAL 11/06/20 06:30 12/06/20 06:29 11/24/20 05:35 Tamsulosin HCl (Flomax) 0.4 mg BID ORAL 11/03/20 12:00 12/03/20 11:59 11/24/20 09:08 Vitamin D (Vitamin D) 5,000 unit DAILY ORAL 11/13/20 09:00 12/13/20 08:59 11/24/20 09:25 Assessment/Plan Assessment/Plan 1. Non-ST elevation myocardial infarction. - cardiology following 2. Diabetic ketoacidosis - seen by endocrinology - continue fluids - on insulin 3. Atrial flutter with rapid ventricular response. - Continue metoprolol 50 mg b.i.d. 4. COVID positive pneumonia. - s/p Decadron (11/03-11/12) - Supplemental O2 - saturating well on room air - CXR 11/04 developing b/l infilitrates 5. Renal failure - nephrology following 6. Accelerated hypertension. 7. Hyperthyroidism - Dr. Tamez following 8. Diarrhea - C. diff negative 9. DVT ppx - s/p Eliquis - We will restart low dose Lovenox given eGFR <30 - ok to continue if plt >50K per heme onc 10. Anemia - s/p transfusion (11/16) Medically stable for discharge from pulmonary standpoint DC planning; pending placement The care for this patient was discussed with my supervising physician Time spent for this case was approximately 31 minutes Singh Buchanan Nov 24, 2020 10:29
--- NOTE | 2020-11-24 10:32 | Cardiac Electrophysiology PN ---
Assessment/Plan Assessment/Plan 1. NSTEMI with troponin of 0.25 and 0.35 in this patient with DKA as well as atrial flutter with rapid ventricular response. On metoprolol 50 mg b.i.d. EF 65% 2. Atrial flutter with RVR On metoprolol 50 mg bid, Cardizem 90 bid and Amiodarone 200 po daily Off Eliquis for hematuria 3. Diabetic ketoacidosis with glucose of more than 1000. 4. Hypertension. On Lopressor 50 bid and Cardizem 90 bid 5. COVID positive pneumonia. 6. Acute Renal failure, Resolved S/P HD via RFV Yazan by Dr. Buckley. RFV Yazan pulled out by patient. S/P New RIJ Yazan on 11/11/20 that was then removed on 11/17 7. Anemia. S/P PRBC 11/16 Subjective Subjective Pulled out his RFV Yazan catheter on 11/08/20. S/P new Yazan catheter placement 11/11/20. R IJ HD catheter removed 11/17/20 S/P PRBC On RA SNIF pending Objective Last 24 Hour Vital Signs Date Time Temp Pulse Resp B/P (MAP) Pulse Ox O2 Delivery O2 Flow Rate FiO2 11/24/20 09:09 59 131/55 11/24/20 09:07 59 131/55 11/24/20 09:00 Room Air 11/24/20 08:00 59 11/24/20 08:00 98.6 67 20 131/55 (80) 95 11/24/20 04:00 63 11/24/20 04:00 99.2 61 20 126/52 (76) 95 11/24/20 00:00 64 11/24/20 00:00 97.9 64 20 116/59 (78) 97 11/23/20 21:00 Room Air 11/23/20 20:47 65 126/56 11/23/20 20:00 60 11/23/20 20:00 97.7 61 19 126/56 (79) 95 11/23/20 17:03 53 106/53 11/23/20 16:00 53 11/23/20 16:00 97.9 58 19 106/53 (70) 98 11/23/20 12:00 54 11/23/20 12:00 96.8 53 20 102/53 (69) 95 Intake and Output 11/23/20 11/24/20 19:00 07:00 Intake Total 1000 ml 600 ml Output Total 1200 ml 900 ml Balance -200 ml -300 ml Intake Oral 1000 ml 600 ml Output Urine Total 1200 ml 900 ml # Voids 3 Laboratory Tests Test 11/23/20 11:41 11/23/20 16:15 11/23/20 19:41 11/24/20 05:33 POC Whole Blood Glucose Pending Pending 206 MG/DL (74-106) H White Blood Count 4.0 K/UL (4.8-10.8) L Red Blood Count 2.93 M/UL (4.70-6.10) L Hemoglobin 8.7 G/DL (14.2-18.0) L Hematocrit 27.0 % (42.0-52.0) L Mean Corpuscular Volume 92 FL (80-99) Mean Corpuscular Hemoglobin 29.6 PG (27.0-31.0) Mean Corpuscular Hemoglobin Concent 32.0 G/DL (32.0-36.0) Red Cell Distribution Width 13.7 % (11.6-14.8) Platelet Count 181 K/UL (150-450) Mean Platelet Volume 5.8 FL (6.5-10.1) L Neutrophils (%) (Auto) 60.5 % (45.0-75.0) Lymphocytes (%) (Auto) 23.1 % (20.0-45.0) Monocytes (%) (Auto) 9.7 % (1.0-10.0) Eosinophils (%) (Auto) 5.9 % (0.0-3.0) H Basophils (%) (Auto) 0.7 % (0.0-2.0) Sodium Level 140 MMOL/L (136-145) Potassium Level 4.4 MMOL/L (3.5-5.1) Chloride Level 108 MMOL/L (98-107) H Carbon Dioxide Level 27 MMOL/L (21-32) Anion Gap 6 mmol/L (5-15) Blood Urea Nitrogen 31 mg/dL (7-18) H Creatinine 2.7 MG/DL (0.55-1.30) H Estimat Glomerular Filtration Rate 23.1 mL/min (>60) Glucose Level 149 MG/DL (74-106) H Calcium Level 8.2 MG/DL (8.5-10.1) L Test 11/24/20 05:47 POC Whole Blood Glucose 132 MG/DL (74-106) H Objective HEAD AND NECK: No JVD. LUNGS: Clear. CARDIOVASCULAR: Shows regular S1 and S2 with no gallop. ABDOMEN: Soft. EXTREMITIES: No pitting edema. Sivakumar Escalante MD Nov 24, 2020 10:32
--- NOTE | 2020-11-24 11:16 | NUR ---
RD ASSESSMENT & RECOMMENDATIONS SEE CARE ACTIVITY FOR COMPLETE ASSESSMENT DAILY ESTIMATED NEEDS: Needs based on DM, pulmonary, ARF 68.4kg 25-30 kcals/kg 1977-2480 total kcals 0.8-1.2 g protein/kg 55-82 g total protein 25-30 mL/kg 4353-9338 total fluid mLs NUTRITION DIAGNOSIS: Altered nutrition related lab values r/t DKA as evidenced by Uglu 4+ on adm, small acetone detected, BG 1087 upon adm-> now improved, A1C 8.1. CURRENT DIET:now changed to renal/ccho med (pureed moist) + Glucerna TID PO DIET RECOMMENDATIONS: LOW NA/ CCHO MED diet (texture as tolerated) ADDITIONAL RECOMMENDATIONS: 1) Monitor renal fxn and lytes, continuity of HD last HD 11/08, K, phos, mag wnl, creat stable 2) Monitor BGs closely for hypoglycemia w/ insulin regimen 3) Maintain calibrated bed scale wts 4) Nephrovite x 1 5) DC HPN: PO intake consistently optimal, no need for HPN (will provide excess kcals, elev BGs)
[2020-11-24] MEDS ORDERED: NovoLOG Insulin Flexpen SUBQ SCH (11:50)
[2020-11-24 12:00] VITALS: BP 106/50
--- NOTE | 2020-11-24 12:07 | NUR ---
*-*DISCHARGE PLANNED*-* PATIENT HAS BEEN ACCEPTED AND [facility] P: [phone] FOR NURSE TO NURSE REPORT ROOM# 1.[facility] TRAN[facility] SET FOR 1PM S/W JOSSELIN [id number].
--- NOTE | 2020-11-24 12:54 | NUR ---
NURSE NOTES: Report given to [place] at [facility].
--- NOTE | 2020-11-24 13:31 | Nephrology Progress Note ---
Assessment/Plan Problem List: (1) Renal failure (ARF), acute on chronic (2) DKA (diabetic ketoacidoses) (3) COVID-19 virus infection (4) Rhabdomyolysis (5) Abnormal thyroid blood test (6) NSTEMI (non-ST elevated myocardial infarction) Assessment 75-year-old [place] male Covid positive Acute renal failure, most likely superimposed on chronic kidney disease Diabetes mellitus, presents with severe hyperglycemia and DKA History of hypertension Plan November 24: Labs reviewed. Serum creatinine even lower at 2.7. Status quo. Full code. Continue same management. Continue per consultants. November 23: Labs reviewed. Serum creatinine 2.8. Status Quo. Stable from renal stand point of view. November 22: Labs reviewed. Serum creatinine 2.8. Patient have CKD however does not require dialysis treatment at this time. Continue per consultants. November 21: No chemistry panel done today. Status quo. Patient remains full code. Continue to monitor renal parameters. Continue per consultants. November 20: Serum creatinine 3.1. Full code. No need for dialysis yet. Dominik nue per consultants. November 19: Serum creatinine stable at 3. Full code. No dialysis needed. Continue per consultants. November 18: Serum creatinine 3. No need for dialysis. Remains full code. Continue as is. November 17: No labs drawn today. No dialysis since November 08. Plan to remove all of dialysis catheter. Check labs tomorrow if in-house. November 16: Labs reviewed. Serum creatinine lower 2.9. No need for dialysis catheter anymore. Continue as is. November 15: Labs reviewed. Serum creatinine unchanged. Calculated creatinine clearance 19 mL/h. No dialysis needed at this time. November 14: Lab reviewed. Serum creatinine 3.2 unchanged. No need for dialysis. Continue per consultants. November 13: Lab reviewed. Serum creatinine 3.2. No need for dialysis today. Continue to monitor renal parameters. Continue per consultants. November 12: Labs reviewed. Serum creatinine 3. No dialysis needed today. Continue to monitor renal parameters. November 11: Labs reviewed. Serum creatinine higher. Due for placement of a Nontunneled catheter today. We will schedule dialysis as needed. Patient's leukocytosis gradually improving. November 10: Lab reviewed. Serum creatinine rising. We will proceed with placement of a nontunneled catheter tomorrow and dialysis. Patient has leukocytosis at this time. Continue per consultants. November 09: Labs reviewed. Patient was dialyzed yesterday. Patient pulled out the dialysis catheter last night. Renal parameters stable. Continue to monitor and if dialysis needed to place a new temporary catheter. Per orders. November 08: Labs reviewed. Serum creatinine is plateauing. Due for dialysis to day. We will continue to monitor renal parameters and dialysis as needed. November 07: Labs reviewed. Serum creatinine rising. IV fluid discontinued. Dialysis for tomorrow. Continue per consultants. November 06: Labs reviewed. Blood pressure stable. Medication list reviewed. Dialysis as needed. November 05: Due for dialysis today. Labs are reviewed. Blood pressure is stable. Continue to monitor renal parameters. November 04: Patient was dialyzed yesterday. 1 L ultrafiltrated. Labs reviewed. Renal parameters stable. Will attempt dialysis again tomorrow. Medication list reviewed. November 03: Labs reviewed. Serum creatinine rising. Patient has hematuria. Patient on Eliquis. Will arrange for placement of dialysis catheter and attempt to dialyze. Will start Flomax since the patient could not have a Anand catheter. Continue to monitor renal parameters. Continue per consultants. Discussed with RN. Consent for placement of nontunneled catheter ordered. Patient is also on Tapazole for high thyroid hormone. CPK is lowering. November 02: Labs reviewed. Serum creatinine up to 4. In S DU now. On Cardizem drip. Measured creatinine clearance . Patient may lead towards dialysis. Continue to monitor renal parameters. November 01: Renal parameters improving. Blood sugar is improving. Continue to monitor electrolytes renal parameters and urine output. Aim to control blood sugar and blood pressure. Avoid nephrotoxic's. Monitor CPK as it is elevated. Previously: Anand catheter Blood sugar control Slow hydration Monitor renal parameters Kidney ultrasound no hydronephrosis 2D echocardiogram ejection fraction 60 to 65%. Per orders Subjective ROS Limited/Unobtainable: No Constitutional: Reports: malaise Objective Objective Last 24 Hour Vital Signs Date Time Temp Pulse Resp B/P (MAP) Pulse Ox O2 Delivery O2 Flow Rate FiO2 11/24/20 12:00 97.9 56 18 106/50 (68) 96 11/24/20 12:00 55 11/24/20 09:09 59 131/55 11/24/20 09:07 59 131/55 11/24/20 09:00 Room Air 11/24/20 08:00 59 11/24/20 08:00 98.6 67 20 131/55 (80) 95 11/24/20 04:00 63 11/24/20 04:00 99.2 61 20 126/52 (76) 95 11/24/20 00:00 64 11/24/20 00:00 97.9 64 20 116/59 (78) 97 11/23/20 21:00 Room Air 11/23/20 20:47 65 126/56 11/23/20 20:00 60 11/23/20 20:00 97.7 61 19 126/56 (79) 95 11/23/20 17:03 53 106/53 11/23/20 16:00 53 11/23/20 16:00 97.9 58 19 106/53 (70) 98 Intake and Output 11/23/20 11/24/20 19:00 07:00 Intake Total 1000 ml 600 ml Output Total 1200 ml 900 ml Balance -200 ml -300 ml Intake Oral 1000 ml 600 ml Output Urine Total 1200 ml 900 ml # Voids 3 Current Medications Medications (Trade) Dose Ordered Sig/Manasa Route PRN Reason Start Time Stop Time Status Last Admin Dose Admin Acetaminophen (Tylenol) 500 mg Q4H PRN ORAL For Pain 11/01/20 01:00 12/01/20 00:59 11/24/20 05:36 Acetaminophen (Tylenol) 650 mg Q4H PRN RECTAL Temp >100.5 11/01/20 21:30 12/01/20 21:29 Allopurinol (Zyloprim) 200 mg DAILY ORAL 11/01/20 16:00 12/01/20 15:59 11/24/20 09:08 Amiodarone HCl (Cordarone) 200 mg DAILY ORAL 11/10/20 09:00 02/08/21 08:59 11/24/20 09:09 Clonidine HCl (Catapres Tab) 0.1 mg Q4H PRN ORAL bp over 160 syst 10/31/20 17:45 01/29/21 17:44 11/01/20 09:20 Dextrose (Dextrose 50%) 25 ml Q30M PRN IV Hypoglycemia 11/01/20 07:15 01/30/21 07:14 Dextrose (Dextrose 50%) 50 ml Q30M PRN IV Hypoglycemia 11/01/20 07:15 01/30/21 07:14 Diltiazem HCl (Cardizem Tab) 90 mg BID ORAL 11/07/20 10:15 12/02/20 17:59 11/24/20 09:09 Docusate Sodium (Colace) 100 mg TWICE A DAY ORAL 11/24/20 09:00 12/24/20 08:59 11/24/20 09:07 Enoxaparin Sodium (Lovenox) 30 mg DAILY SUBQ 11/16/20 09:00 02/14/21 08:59 11/24/20 09:08 Haloperidol Lactate (Haldol) 5 mg Q6H PRN IM Agitation 11/06/20 21:30 12/21/20 21:29 11/21/20 06:31 Insulin Aspart (NovoLOG) BEFORE MEALS AND HS SUBQ 11/01/20 11:30 01/30/21 11:29 11/24/20 11:44 Insulin Aspart (NovoLOG) 6 units NOVOTIAC SUBQ 11/24/20 11:50 02/18/21 06:29 11/24/20 11:45 Insulin Detemir (Levemir) 15 units QHS SUBQ 11/21/20 21:00 02/18/21 20:59 11/23/20 20:49 Magnesium Hydroxide (Mom) 30 ml Q4H PRN ORAL Constipation 11/23/20 21:30 12/23/20 21:29 11/23/20 21:54 Methimazole (Tapazole) 10 mg DAILY ORAL 11/03/20 09:00 12/03/20 08:59 11/24/20 09:08 Metoprolol Tartrate (Lopressor) 50 mg Q12HR ORAL 11/01/20 21:00 01/30/21 20:59 11/24/20 09:07 Ondansetron HCl (Zofran) 4 mg Q6H PRN IVP Nausea & Vomiting 11/07/20 16:30 12/07/20 16:29 11/07/20 17:28 Pantoprazole (Protonix) 40 mg BID ORAL 10/31/20 18:00 11/30/20 17:44 11/24/20 09:09 Sitagliptin Phosphate (Januvia) 25 mg ACBREAKFAST ORAL 11/06/20 06:30 12/06/20 06:29 11/24/20 05:35 Tamsulosin HCl (Flomax) 0.4 mg BID ORAL 11/03/20 12:00 12/03/20 11:59 11/24/20 09:08 Vitamin D (Vitamin D) 5,000 unit DAILY ORAL 11/13/20 09:00 12/13/20 08:59 11/24/20 09:25 Laboratory Tests 11/23/20 16:15: POC Whole Blood Glucose [Pending] 11/23/20 19:41: POC Whole Blood Glucose 206H 11/24/20 05:33: White Blood Count 4.0L, Red Blood Count 2.93L, Hemoglobin 8.7L, Hematocrit 27.0L , Mean Corpuscular Volume 92, Mean Corpuscular Hemoglobin 29.6, Mean Corpuscular Hemoglobin Concent 32.0, Red Cell Distribution Width 13.7, Platelet Count 181, Mean Platelet Volume 5.8L, Neutrophils (%) (Auto) 60.5, Lymphocytes (%) (Auto) 23.1, Monocytes (%) (Auto) 9.7, Eosinophils (%) (Auto) 5.9H, Basophils (%) (Auto) 0.7, Sodium Level 140, Potassium Level 4.4, Chloride Level 108H, Carbon Dioxide Level 27, Anion Gap 6, Blood Urea Nitrogen 31H, Creatinine 2.7H, Estimat Glomerular Filtration Rate 23.1, Glucose Level 149H, Calcium Level 8.2L 11/24/20 05:47: POC Whole Blood Glucose 132H 11/24/20 11:37: POC Whole Blood Glucose [Pending] Height (Feet): 5 Height (Inches): 5.00 Weight (Pounds): 150 General Appearance: no apparent distress Cardiovascular: normal rate Respiratory/Chest: decreased breath sounds Abdomen: distended Garth Buckley MD Nov 24, 2020 13:31
--- NOTE | 2020-11-24 14:21 | Surgery Progress Note ---
Surgery Progress Note Subjective Procedure Performed Right femoral temporary hemodialysis catheter insertion Additional Comments patient accepted to facility for d/c okay to d/c up and ambulatory with pt Objective Last 24 Hour Vital Signs Date Time Temp Pulse Resp B/P (MAP) Pulse Ox O2 Delivery O2 Flow Rate FiO2 11/24/20 12:00 97.9 56 18 106/50 (68) 96 11/24/20 12:00 55 11/24/20 09:09 59 131/55 11/24/20 09:07 59 131/55 11/24/20 09:00 Room Air 11/24/20 08:00 59 11/24/20 08:00 98.6 67 20 131/55 (80) 95 11/24/20 04:00 63 11/24/20 04:00 99.2 61 20 126/52 (76) 95 11/24/20 00:00 64 11/24/20 00:00 97.9 64 20 116/59 (78) 97 11/23/20 21:00 Room Air 11/23/20 20:47 65 126/56 11/23/20 20:00 60 11/23/20 20:00 97.7 61 19 126/56 (79) 95 11/23/20 17:03 53 106/53 11/23/20 16:00 53 11/23/20 16:00 97.9 58 19 106/53 (70) 98 I&O Intake and Output 11/23/20 11/24/20 19:00 07:00 Intake Total 1000 ml 600 ml Output Total 1200 ml 900 ml Balance -200 ml -300 ml Intake Oral 1000 ml 600 ml Output Urine Total 1200 ml 900 ml # Voids 3 Cardiovascular: RSR Respiratory: clear Abdomen: soft, flat, non-tender, present bowel sounds Extremities: no edema, no tenderness, no cyanosis Laboratory Tests Test 11/23/20 16:15 11/23/20 19:41 11/24/20 05:33 11/24/20 05:47 POC Whole Blood Glucose Pending 206 MG/DL (74-106) H 132 MG/DL (74-106) H White Blood Count 4.0 K/UL (4.8-10.8) L Red Blood Count 2.93 M/UL (4.70-6.10) L Hemoglobin 8.7 G/DL (14.2-18.0) L Hematocrit 27.0 % (42.0-52.0) L Mean Corpuscular Volume 92 FL (80-99) Mean Corpuscular Hemoglobin 29.6 PG (27.0-31.0) Mean Corpuscular Hemoglobin Concent 32.0 G/DL (32.0-36.0) Red Cell Distribution Width 13.7 % (11.6-14.8) Platelet Count 181 K/UL (150-450) Mean Platelet Volume 5.8 FL (6.5-10.1) L Neutrophils (%) (Auto) 60.5 % (45.0-75.0) Lymphocytes (%) (Auto) 23.1 % (20.0-45.0) Monocytes (%) (Auto) 9.7 % (1.0-10.0) Eosinophils (%) (Auto) 5.9 % (0.0-3.0) H Basophils (%) (Auto) 0.7 % (0.0-2.0) Sodium Level 140 MMOL/L (136-145) Potassium Level 4.4 MMOL/L (3.5-5.1) Chloride Level 108 MMOL/L (98-107) H Carbon Dioxide Level 27 MMOL/L (21-32) Anion Gap 6 mmol/L (5-15) Blood Urea Nitrogen 31 mg/dL (7-18) H Creatinine 2.7 MG/DL (0.55-1.30) H Estimat Glomerular Filtration Rate 23.1 mL/min (>60) Glucose Level 149 MG/DL (74-106) H Calcium Level 8.2 MG/DL (8.5-10.1) L Test 11/24/20 11:37 POC Whole Blood Glucose Pending Plan Problems: (1) DKA (diabetic ketoacidoses) (2) Renal failure (ARF), acute on chronic Assessment & Plan: s/p temp HD line recovering renal function not stable hold on removal of line (3) COVID-19 virus infection Assessment & Plan: 75-year-old male Covid positive renal insufficiency recently had temporary dialysis catheter placement develop leukocytosis soon after. Vitals noted. Exam stable. Catheter was evaluated no acute active inflammatory or infectious process identified. Catheter is clean dry intact. The dressings are not saturated. There is no active bleeding identified. There is no signs of active infection. Leukocytosis anterior collated to medications currently given for COVID-19 infection. Will monitor closely to ensure no active development of infection or related to catheter placement. Thank you for let me participate patient's care will follow with recommendations trend leukocytosis cont dressings cont care plan as noted cont HD trend renal function (4) Rhabdomyolysis Assessment & Plan: improved resuscitated no n/v tolerating diet labs improved likely secondary to down DAILY ESTIMATED NEEDS: Needs based on DM, pulmonary, ARF 68.4kg 25-30 kcals/kg 5002-9916 total kcals 0.8-1.2 g protein/kg 55-82 g total protein 25-30 mL/kg 7654-4005 total fluid mLs NUTRITION DIAGNOSIS: Altered nutrition related lab values r/t DKA as evidenced by Uglu 4+ on adm, small acetone detected, BG 1087 upon adm-> now improved, A1C 8.1. CURRENT DIET:now changed to renal/ccho med (pureed moist) + Glucerna TID PO DIET RECOMMENDATIONS: LOW NA/ CCHO MED diet (texture as tolerated) ADDITIONAL RECOMMENDATIONS: 1) Monitor renal fxn and lytes, continuity of HD last HD 11/08, K, phos, mag wnl, creat stable 2) Monitor BGs closely for hypoglycemia w/ insulin regimen 3) Maintain calibrated bed scale wts 4) Nephrovite x 1 5) DC HPN: PO intake consistently optimal, no need for HPN (will provide excess kcals, elev BGs) (5) Diabetes mellitus out of control (6) Abnormal thyroid blood test (7) NSTEMI (non-ST elevated myocardial infarction) Norberto Steele Nov 24, 2020 14:21
--- NOTE | 2020-11-24 15:57 | NUR ---
NURSE NOTES: Patient discharged in stable condition with belongings given to Ambulance Personnel.
--- NOTE | 2020-11-24 16:38 | NUR ---
INSURANCE CLINICALS AND REVIEW FAXED TO [facility] T: [phone] F: [phone]
--- NOTE | 2020-11-24 17:13 | General Progress Note ---
Subjective ROS Limited/Unobtainable: Yes Allergies: Coded Allergies: No Known Allergies (Unverified , 10/31/20) Objective Last 24 Hour Vital Signs Date Time Temp Pulse Resp B/P (MAP) Pulse Ox O2 Delivery O2 Flow Rate FiO2 11/24/20 12:00 97.9 56 18 106/50 (68) 96 11/24/20 12:00 55 11/24/20 09:09 59 131/55 11/24/20 09:07 59 131/55 11/24/20 09:00 Room Air 11/24/20 08:00 59 11/24/20 08:00 98.6 67 20 131/55 (80) 95 11/24/20 04:00 63 11/24/20 04:00 99.2 61 20 126/52 (76) 95 11/24/20 00:00 64 11/24/20 00:00 97.9 64 20 116/59 (78) 97 11/23/20 21:00 Room Air 11/23/20 20:47 65 126/56 11/23/20 20:00 60 11/23/20 20:00 97.7 61 19 126/56 (79) 95 Intake and Output 11/23/20 11/24/20 19:00 07:00 Intake Total 1000 ml 600 ml Output Total 1200 ml 900 ml Balance -200 ml -300 ml Intake Oral 1000 ml 600 ml Output Urine Total 1200 ml 900 ml # Voids 3 Laboratory Tests 11/23/20 19:41: POC Whole Blood Glucose 206H 11/24/20 05:33: White Blood Count 4.0L, Red Blood Count 2.93L, Hemoglobin 8.7L, Hematocrit 27.0L , Mean Corpuscular Volume 92, Mean Corpuscular Hemoglobin 29.6, Mean Corpuscular Hemoglobin Concent 32.0, Red Cell Distribution Width 13.7, Platelet Count 181, Mean Platelet Volume 5.8L, Neutrophils (%) (Auto) 60.5, Lymphocytes (%) (Auto) 23.1, Monocytes (%) (Auto) 9.7, Eosinophils (%) (Auto) 5.9H, Basophils (%) (Auto) 0.7, Sodium Level 140, Potassium Level 4.4, Chloride Level 108H, Carbon Dioxide Level 27, Anion Gap 6, Blood Urea Nitrogen 31H, Creatinine 2.7H, Estimat Glomerular Filtration Rate 23.1, Glucose Level 149H, Calcium Level 8.2L 11/24/20 05:47: POC Whole Blood Glucose 132H 11/24/20 11:37: POC Whole Blood Glucose [Pending] Height (Feet): 5 Height (Inches): 5.00 Weight (Pounds): 150 Assessment/Plan Problem List: (1) Renal failure (ARF), acute on chronic ICD Codes: N17.9 - Acute kidney failure, unspecified; N18.9 - Chronic kidney disease, unspecified SNOMED: 150520171 (2) DKA (diabetic ketoacidoses) ICD Codes: E11.10 - Type 2 diabetes mellitus with ketoacidosis without coma SNOMED: 117443788, 85951970 (3) COVID-19 virus infection ICD Codes: U07.1 - COVID-19 SNOMED: 785309262 (4) Rhabdomyolysis ICD Codes: M62.82 - Rhabdomyolysis SNOMED: 102629139 (5) Diabetes mellitus out of control ICD Codes: E11.65 - Type 2 diabetes mellitus with hyperglycemia SNOMED: 31693518, 018495778 (6) Abnormal thyroid blood test ICD Codes: R79.89 - Other specified abnormal findings of blood chemistry SNOMED: 569555558, [id number] (7) NSTEMI (non-ST elevated myocardial infarction) ICD Codes: I21.4 - Non-ST elevation (NSTEMI) myocardial infarction SNOMED: 42920695 Status: progressing, unchanged Assessment/Plan: going to snf today see dc summary for today Corey Soto MD Nov 24, 2020 17:13
== END 2020-11-24 17:18 | DRG 137 ==
LOC: EDBD 12:25 → EMR 13:03 → 2E 14:25 → EDBEDREQ 19:10 → EDBEDREQSVC 22:04 → EDBEDREQ 22:28 → ICU 11-01 18:20 → 2W 11-02 05:00 → 2E 11-04 20:36
PROC: 5A1D70Z Performance of Urinary Filtration, Intermittent, Less than 6 Hours Per Day (ICD-10-PCS; principal; 2020-11-03)
PROC: 06HM33Z Insertion of Infusion Device into Right Femoral Vein, Percutaneous Approach (ICD-10-PCS; 2020-11-03)
PROC: 05HM33Z Insertion of Infusion Device into Right Internal Jugular Vein, Percutaneous Approach (ICD-10-PCS; 2020-11-11)
DX: U07.1 COVID-19 (principal); I21.4 Non-ST elevation (NSTEMI) myocardial infarction; E11.10 Type 2 diabetes mellitus with ketoacidosis without coma; N17.9 Acute kidney failure, unspecified; J12.82 Pneumonia due to coronavirus disease 2019; I48.92 Unspecified atrial flutter; I13.10 Hypertensive heart and chronic kidney disease without heart failure, with stage 1 through stage 4 chronic kidney disease, or unspecified chronic kidney disease; E11.22 Type 2 diabetes mellitus with diabetic chronic kidney disease; E11.65 Type 2 diabetes mellitus with hyperglycemia; N18.9 Chronic kidney disease, unspecified; R31.9 Hematuria, unspecified; N40.1 Benign prostatic hyperplasia with lower urinary tract symptoms; R33.8 Other retention of urine; R09.02 Hypoxemia; G92 Toxic encephalopathy; D64.9 Anemia, unspecified; D69.6 Thrombocytopenia, unspecified; R19.7 Diarrhea, unspecified
CPT/HCPCS: 36415; 36569; 70450; 71045; 76770; 76937; 80048; 80053; 80061; 81003; 82009; 82306; 82550; 82553; 82728; 82803; 82962; 82977; 83036; 83605; 83690; 83735; 83880; 84100; 84436; 84439; 84443; 84481; 84484; 84550; 85007; 85025; 85379; 85610; 85730; 86140; 86376; 86706; 86707; 86803; 86850; 86900; 86901; 86920; 87081; 87324; 89050; 93005; 93306; 93970; 96361; 96374; 96375; 99291; J1815; J2405; J7030; J8499; S5561; U0002